=== PATIENT | male | born 1955 | race Caucasian/White ===

== ENCOUNTER 2018-05-11 10:28 | Inpatient (IN) | payer MEDICARE, SELFPAY ==
[2018-05-11] VITALS (11 sets, daily range): BP systolic 165–195; BP diastolic 78–117; PULSE 82–124; RESP 16–28; TEMP 36.1–37.7; O2SAT 91–98; BMI 28.3; BMI 27.4; BMI 27.5
--- NOTE | 2018-05-11 10:32 | RAD_ITS ---
STUDY: X-RAY - THORACIC SPINE REASON FOR EXAM: Male, 62 years old. Chronic back pain. TECHNIQUE: 3 view(s) of the thoracic spine were obtained. COMPARISON: None. FINDINGS: There is an increase in the normal thoracic kyphosis. There is no substantial scoliosis. There is multilevel endplate spondylosis of the thoracic vertebrae. There is multilevel disc space narrowing of the thoracic spine. Findings in keeping with ankylosing spondylitis. Gallstones. RAD/Thoracic Spine 3 Views IMPRESSION: Findings in keeping with ankylosing spondylitis. Gallstones. Electronically Signed: Venkata Franklin MD at 12:18 EST Tel [phone], Service support ,
--- NOTE | 2018-05-11 10:32 | RAD_ITS ---
STUDY: X-RAY - RIGHT HIP REASON FOR EXAM: Male, 62 years old. Right hip pain following recent fall. TECHNIQUE: 2 views of the hip. COMPARISON: None. FINDINGS: Normal femoral head, neck, intertrochanteric region and visualized proximal femur. There is osteoarthritic spur formation of the acetabular rim. There is moderate articular joint space narrowing. Normal visualized superior and inferior pubic rami and ischial tuberosities. Fusion of the symphysis pubis. There is fusion of the sacroiliac joints bilaterally. There is evidence of a disc space narrowing in the lower lumbar spine with fusion of the spinous processes suggestive of a ankylosing spondylitis. RAD/HIP, UNI W/ Pelvis 2-3 Views IMPRESSION: Degenerative changes of the hip. Findings suggestive of ankylosing spondylitis. Electronically Signed: Venkata Franklin MD at 12:15 EST Tel [phone], Service support ,
--- NOTE | 2018-05-11 10:32 | RAD_ITS ---
STUDY: X-RAY - LUMBAR SPINE REASON FOR EXAM: Male, 62 years old. History of recent fall. Chronic back pain. TECHNIQUE: 3 view(s) of the lumbar spine were obtained. COMPARISON: None FINDINGS: There is straightening of the normal lumbar lordosis. There is no substantial scoliosis. There is a normal alignment of the vertebrae. There is multilevel endplate spondylosis of the lumbar vertebrae. There is multi-level degenerative disc disease with multi-level disc space narrowing. Findings in keeping with ankylosing spondylitis. Fusion of the sacroiliac joints bilaterally. There is atherosclerotic calcification of the abdominal aorta without a demonstrated aneurysm. Gallstones. There is a 3.6 mm calculus in the lower pole calyx of the right kidney. RAD/Lumbar Spine 2 or 3 Views IMPRESSION: Findings in keeping with ankylosing spondylitis. Electronically Signed: Venkata Franklin MD at 12:17 EST Tel [phone], Service support ,
--- NOTE | 2018-05-11 10:40 | ED.VISSUMM ---
- ER Visit Summary Date of Service: 05/11/18 Chief Complaint: Fall History of Present Illness: The patient is a 62 M who fell last night about 12 hours ago. He thinks he fell because his right hip gave out. He complains of right hip pain and also mid back pain. He denies hitting his head or neck. Denies head or neck pain. Denies loss of consciousness. Denies any weakness or numbness. Denies any chest pain or shortness of breath. Denies abdominal pain or GI symptoms. Denies urinary symptoms. Physical Examination: Afebrile and vital signs unremarkable except for blood pressure 195/117. The patient is alert and oriented. He appears uncomfortable when trying to move. Head and neck are atraumatic. Heart regular. Lungs clear. Abdomen soft. Back is diffusely tender in the mid thoracic region. Right hip is tender to palpation. Right lower extremity is slightly shortened. Pain with logroll. Neurovascularly intact distally. Other extremities are atraumatic and unremarkable. Test Results: X-rays of the back and right hip are pending. I also checked a CBC, BMP, and CK. Emergency Department Course and Treatment: Patient was treated with fentanyl while awaiting results. I have suspicion for right hip fracture or dislocation. I have low suspicion for back fracture or pathology there. I have low suspicion for rhabdo but will check his labs. X-rays showed degenerative and chronic changes only. Nothing acute. No fractures. Patient is doing well on reevaluation. His blood work showed a white count of 16.6, hemoglobin 18.4, platelets 102. BMP unremarkable. CPK 1371. He was treated with IV fluids. He is taking fluids by mouth. Urinalysis pending. Patient was discussed with the hospitalist for admission Treatment Plan: As above Disposition: Admission Impression: 1. Fall 2. Right hip pain 3. rhabdomyolysis This note was generated with [employer] dictation software. It may contain incorrect words, spelling, and punctuation that were not noted in review of the chart prior to signing ED Disposition - Plan for ED Patient: Chief Complaint: Fall Referrals: Yang Saul MD [Primary Care Provider] -
[2018-05-11] MEDS: fentaNYL 100 MCG/2 ML Ampul 50 MCG IV (11:00)
[2018-05-11 11:06] LABS: Absolute Lymphocyte Count 1.65 X10^3/ul (0.83-4.51); Absolute Neutrophil Count 14.3 X10^3/uL (2.0-7.7); Basophil# 0.01 X10^3/uL; Basophil% 0.1 % (0-1); Hematocrit 52.7 % (40-54); Lymphocyte # 1.65 X10^3/ul (4.0); Mean Corp Hgb Conc 34.9 g/gl (32-36); Mean Corpuscular Hgb 31.9 pg (27.0-32.0); Mean Corpuscular Volume 91.3 fL (80-94); Mean Platelet Vol. 10.1 fl (6.2-12.0); Monocyte# 0.62 X10^3/uL; Monocyte% 3.7 % (0-10); Neutrophil # 14.25 X10^3/uL (2.7-7.7); Platelet Count 102 K/mm3 (150-450); RBC Distribution Width CV 12.7 % (11.6-14.6); RBC Distribution Width SD 41.8 fl (35.1-43.9); Red Blood Count 5.77 M/mm3 (4.6-6.2); White Blood Count 16.6 K/mm3 (4.4-11.0)
[2018-05-11 11:08] LABS: Hemoglobin 18.4 g/dl (13.0-16.5); POSITIVE COUNT NO; POSITIVE DIFFERENTIAL NO; POSITIVE MORPHOLOGY NO
[2018-05-11 11:25] LABS: Anion Gap 12 (5-15); BUN 11 mg/dL (7-18); BUN/Creat Ratio 12.3 RATIO (10-20); CPK Total, Creatine Kinase 1371 U/L (39-308); Calcium,Total 8.6 mg/dL (8.5-10.1); Chloride 102 mmol/L (98-107); Creatinine, Serum 0.89 mg/dL (0.70-1.30); EST Glomerular Filtration Rate 92 mL/min (>60); Est Glom Filt Rate - Afr Amer 111 mL/min (>60); Estimated Creatinine Clearance 75.82 ml/min; Glucose 122 mg/dL (74-106); Potassium 3.5 mmol/L (3.5-5.1); Sodium Level 143 mmol/L (136-145)
[2018-05-11] MEDS: 0.9% Normal Saline 1,000 ML 999 ML IV ×3 (12:00→22:31)
[2018-05-11 12:40] LABS: Bacteria 0 SEEN /hpf (None Seen); Mucous, Urine 0 SEEN /hpf (<or=2+); Red Blood Cells-Urine 0 SEEN /hpf (0-5); Squamous Epithelial Cells - UA 0 SEEN /hpf (0-5)
[2018-05-11 12:45] LABS: Color, Urine Yellow (Yellow); Glucose, Dipstick Normal (Normal); Ketone-Dipstick 5 mg/dl (Negative); Leukocyte Esterase-Dipstick 25 /ul (Negative); Nitrite-Dipstick Negative (Negative); Occult Blood-Urine 250 /ul (Negative); Protein-Dipstick 500 mg/dl (Negative); Specific Gravity, Urine 1.025 (1.002-1.030); Urine Bilirubin Dipstick Negative (Negative); Urine Clarity Sl. Cloudy (Clear); Urine Urobilinogen 1 mg/dl (Normal)
[2018-05-11 12:54] LABS: Hyaline Cast 0-5 SEEN /lpf (0-5)
[2018-05-11 12:55] LABS: White Blood Cells 0-5 SEEN /hpf (0-5)
--- NOTE | 2018-05-11 13:30 | PCM.HP.STD ---
Problem List (1) Ankylosing spondylitis of lumbosacral region Status: Chronic (2) Fall Status: Acute (3) Rhabdomyolysis Status: Acute (4) Psoriasis Status: Chronic (5) Chronic neck and back pain Status: Chronic (6) 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 Fell down because his right hip twisted as he was walking on the level ground. He could not stand up or move around and was laying down for 12 hours. Patient denies loss of consciousness or hitting the head. Before fall, he was not using cane or walker but he used cane in the past for some time. Patient is not able to roll over or sit up because of severe pain. He further states he has chronic back pain and neck pain for more than 20 years with history of 5 times back injuries. He denies back surgery. His neck is in chronic flexor deformity. He is to see chiropractor in [facility] and probably some rheumatology nurse there and was put on Enbrel. He said it did not help one probably currently not following any doctor. In ED, his blood pressure was found high 195/117, but no tachycardia, tachypnea or hypoxia. Hemoglobin is 18.4, hematocrit 52.7 probably due to hemoconcentration. Urine specific gravity is normal, protein 500, CK 1000 371 suggestive of rhabdomyolysis 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) Allergies Unable to Assess Allergy (Verified 05/11/18 10:59) Smoking Status: Current every day smoker - *Family History Maternal History Items: No pertinent history Review of Systems Constitutional: Denies: Chills, Fever, Weight Change Eyes: Reports: - HEENT: Reports: Difficulty Hearing - In both ears Cardiovascular: Denies: Chest Pain, Palpitations Respiratory: Denies: Cough, Shortness of breath at rest, Sputum production Gastrointestinal: Reports: - - Mild abdominal distention but no pain. Denies tense abdomen and is moving his bowels regularly, last one yesterday. Denies hard stool.. Denies: Abdominal Pain, Nausea, Vomiting Genitourinary: Reports: - - Dark urine. Denies: Dysuria Musculoskeletal: Reports: Back Pain, Joint Pain, Joint stiffness, Joint swelling, Joint Tenderness, Leg Pain, Muscle pain, Neck Pain Skin: Denies: Rash, Wounds Neurological: Reports: Balance problems. Denies: Focal weakness, Numbness, Tingling Psychiatric: Denies: Anxiety, Depression, Homicidal Ideations, Suicidal Ideations Hematologic/ Lymphatic: Denies: Easy Bruising, Easy Bleeding VTE Information - Inpt Only VTE Present on Admission: No VTE Pharm Prophylaxis ordered?: Yes Patient Problems: Active and Suspected Problems Fall (Acute) Rhabdomyolysis (Acute) - Physical Exam General: Alert, Oriented x3, Cooperative HEENT: Atraumatic, PERRLA, EOMI, Normocephalic Oral: Dry Mucosa Neck: Supple, No JVD, Negative Carotid Bruits Lungs: Clear to auscultation, Diminished - Air entry diminished in bilateral lung bases Cardiovascular: Regular rate, Regular Rhythm, Normal S1, Normal S2, No murmurs Abdomen: Bowel Sounds Present, Soft, Non Tender, Hypoactive Bowel Sounds, Distended - Seems gaseous distention. Tympanic percussion sounds Extremities: No edema, Capillary Refill Less than 3 Seconds Skin: No rashes, Rash Present - Dry with chronic fissuring and thickening with a scaling like Toad skin, typical of psoriatic Musculoskeletal: Arthritic Changes, Muscle Wasting, Tenderness - Severe tenderness present over lumbar spine, neck and right hip. Not able to flex right hip and right knee. Lower extremity weakness secondary to pain. Neurological: Cranial nerves II-XII grossly intact, - - DTR 3+ in both knees. Babinski sign negative Psych/Mental Status: Normal Affect, Appropriate Vital Signs Temp Pulse Resp BP Pulse Ox 98.2 F 93 16 195/117 H 96 05/11/18 10:30 05/11/18 10:30 05/11/18 10:30 05/11/18 10:30 05/11/18 10:30 Oxygen Delivery Method Room Air Weight: 170 lb Body Mass Index (BMI) 28.3 Laboratory Tests Past 24 Hrs 05/11/18 05/11/18 05/11/18 10:47 10:47 12:25 WBC 16.6 H RBC 5.77 Hgb 18.4 H* Hct 52.7 MCV 91.3 MCH 31.9 MCHC 34.9 RDW 12.7 RDW Differential 41.8 Plt Count 102 L MPV 10.1 Immature Gran % (Auto) 0.200 Neut % (Auto) 86.0 H Lymph % (Auto) 10.0 L [place] % (Auto) 3.7 Eos % (Auto) 0.0 Baso % (Auto) 0.1 Absolute Neuts (auto) 14.3 H Absolute Lymphs (auto) 1.65 Total Counted Not Reportable Sodium 143 Potassium 3.5 Chloride 102 Carbon Dioxide 29.0 Anion Gap 12 BUN 11 Creatinine 0.89 Estim Creat Clear Calc 75.82 Est GFR (MDRD) Af Amer 111 Est GFR (MDRD) Non-Af 92 BUN/Creatinine Ratio 12.3 Glucose 122 H Calcium 8.6 Total Creatine Kinase 1371 H Urine Color Yellow Urine Clarity Sl. Cloudy Urine pH 5.0 Ur Specific [place] 1.025 Urine Protein 500 H Urine Glucose (UA) Normal Urine Ketones 5 H Urine Occult Blood 250 H Urine Nitrite Negative Urine Bilirubin Negative Urine Urobilinogen 1 H Ur Leukocyte Esterase 25 H Urine RBC 0 SEEN Urine WBC 0-5 SEEN Ur Squamous Epith Cells 0 SEEN Urine Bacteria 0 SEEN Hyaline Casts 0-5 SEEN Urine Mucus 0 SEEN Assessment/Plan All Active Problems Fall (Acute) Rhabdomyolysis (Acute) The patient is a 62 year old M with significant history of lumbosacral spondylosis and cervical spondylosis with chronic neck and back pain, sciatica in nature came to ER after he fell down yesterday. He fell down because his right hip twisted as he was walking on the level ground. He could not stand up or move around and was laying down for 12 hours. Patient denies loss of consciousness or hitting the head. Before fall, he was not using cane or walker but he used cane in the past for some time. Patient is not able to roll over or sit up because of severe pain. He further states he has chronic back pain and neck pain for more than 20 years with history of 5 times back injuries. He denies back surgery. His neck is in chronic flexor deformity. He is to see chiropractor in [facility] and probably some rheumatology nurse there and was put on Enbrel. He said it did not help one probably currently not following any doctor. In ED, his blood pressure was found high 195/117, but no tachycardia, tachypnea or hypoxia. Hemoglobin is 18.4, hematocrit 52.7 probably due to hemoconcentration. Urine specific gravity is normal, protein 500, CK 1000 371 suggestive of rhabdomyolysis. 1. Fall most likely mechanical secondary to chronic right hip joint arthritis exacerbated with chronic lumbosacral degenerative spondylosis with rhabdomyolysis: Patient is being admitted on regular MedSurg floor. IV fluid normal saline at 150 mL/h. Monitor intake and output. Monitor CK daily. PT and OT. Pain management and muscle relaxant. 2. Chronic lumbosacral pain, sciatica in nature with features of ankylosing spondylitis on thoracic and lumbar spine x-rays: Although patient does not know the diagnosis of ankylosing spondylitis but he has positive symptoms of and he was getting Enbrel for that. 3. Hemoconcentration with severe dehydration: IV fluid as mentioned above. 4. Chronic psoriasis and possible associated psoriatic arthritis: Follow-up rheumatology nurse outpatient. DVT prophylaxis: On Lovenox 40 mg subcuT daily Clinical Impression(s) from Imaging Studies Hip/Pelvis X-Ray 05/11/18 10:32 IMPRESSION: Degenerative changes of the hip. Findings suggestive of ankylosing spondylitis. Lumbar Spine X-Ray 05/11/18 10:32 IMPRESSION: Findings in keeping with ankylosing spondylitis. Thoracic Spine X-Ray 05/11/18 10:32 IMPRESSION: Findings in keeping with ankylosing spondylitis. Gallstones. Code Visit Inpatient E&M: 69906 Init Hosp L3
--- NOTE | 2018-05-11 13:39 | HP.PCM_ITS ---
Problem List (1) Ankylosing spondylitis of lumbosacral region Status: Chronic (2) Fall Status: Acute (3) Rhabdomyolysis Status: Acute (4) Psoriasis Status: Chronic (5) Chronic neck and back pain Status: Chronic (6) Sciatica associated with disorder of lumbosacral spine Status: Chronic History of Present Illness Date of Admission: 05/11/18 Chief Complaint: Fall yesterday The patient is a 62 year old M with significant history of lumbosacral s pondylosis and cervical spondylosis with chronic neck and back pain, sciatica in nature came to ER after he fell down yesterday. Fell down because his right hip twisted as he was walking on the level ground. He could not stand up or move around and was laying down for 12 hours. Patient denies loss of consciousness or hitting the head. Before fall, he was not using cane or walker but he used cane in the past for some time. Patient is not able to roll over or sit up because of severe pain. He further states he has chronic back pain and neck pain for more than 20 years with history of 5 times back injuries. He denies back surgery. His neck is in chronic flexor deformity. He is to see chiropractor in [facility] and probably some frame changer there and was put on Enbrel. He said it did not help one probably currently not following any doctor. In ED, his blood pressure was found high 195/117, but no tachycardia, tachypnea or hypoxia. Hemoglobin is 18.4, hematocrit 52.7 probably due to hemoconcentration. Urine specific gravity is normal, protein 500, CK 1000 371 suggestive of rhabdomyolysis 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) Allergies Unable to Assess Allergy (Verified 05/11/18 10:59) Smoking Status: Current every day smoker - *Family History Maternal History Items: No pertinent history Review of Systems Constitutional: Denies: Chills, Fever, Weight Change Eyes: Reports: - HEENT: Reports: Difficulty Hearing - In both ears Cardiovascular: Denies: Chest Pain, Palpitations Respiratory: Denies: Cough, Shortness of breath at rest, Sputum production Gastrointestinal: Reports: - - Mild abdominal distention but no pain. Denies tense abdomen and is moving his bowels regularly, last one yesterday. Denies hard stool.. Denies: Abdominal Pain, Nausea, Vomiting Genitourinary: Reports: - - Dark urine. Denies: Dysuria Musculoskeletal: Reports: Back Pain, Joint Pain, Joint stiffness, Joint swelling, Joint Tenderness, Leg Pain, Muscle pain, Neck Pain Skin: Denies: Rash, Wounds Neurological: Reports: Balance problems. Denies: Focal weakness, Numbness, Tingling Psychiatric: Denies: Anxiety, Depression, Homicidal Ideations, Suicidal Ideations Hematologic/ Lymphatic: Denies: Easy Bruising, Easy Bleeding VTE Information - Inpt Only VTE Present on Admission: No VTE Pharm Prophylaxis ordered?: Yes Patient Problems: Active and Suspected Problems Fall (Acute) Rhabdomyolysis (Acute) - Physical Exam General: Alert, Oriented x3, Cooperative HEENT: Atraumatic, PERRLA, EOMI, Normocephalic Oral: Dry Mucosa Neck: Supple, No JVD, Negative Carotid Bruits Lungs: Clear to auscultation, Diminished - Air entry diminished in bilateral lung bases Cardiovascular: Regular rate, Regular Rhythm, Normal S1, Normal S2, No murmurs Abdomen: Bowel Sounds Present, Soft, Non Tender, Hypoactive Bowel Sounds, Distended - Seems gaseous distention. Tympanic percussion sounds Extremities: No edema, Capillary Refill Less than 3 Seconds Skin: No rashes, Rash Present - Dry with chronic fissuring and thickening with a scaling like Toad skin, typical of psoriatic Musculoskeletal: Arthritic Changes, Muscle Wasting, Tenderness - Severe tenderness present over lumbar spine, neck and right hip. Not able to flex right hip and right knee. Lower extremity weakness secondary to pain. Neurological: Cranial nerves II-XII grossly intact, - - DTR 3+ in both knees. Babinski sign negative Psych/Mental Status: Normal Affect, Appropriate Vital Signs Temp Pulse Resp BP Pulse Ox 98.2 F 93 16 195/117 H 96 05/11/18 10:30 05/11/18 10:30 05/11/18 10:30 05/11/18 10:30 05/11/18 10:30 Oxygen Delivery Method Room Air Weight: 170 lb Body Mass Index (BMI) 28.3 Laboratory Tests Past 24 Hrs 05/11/18 05/11/1818 10:47 10:47 12:25 WBC 16.6 H RBC 5.77 Hgb 18.4 H* Hct 52.7 MCV 91.3 MCH 31.9 MCHC 34.9 RDW 12.7 RDW Differential 41.8 Plt Count 102 L MPV 10.1 Immature Gran % (Auto) 0.200 Neut % (Auto) 86.0 H Lymph % (Auto) 10.0 L [place] % (Auto) 3.7 Eos % (Auto) 0.0 Baso % (Auto) 0.1 Absolute Neuts (auto) 14.3 H Absolute Lymphs (auto) 1.65 Total Counted Not Reportable Sodium 143 Potassium 3.5 Chloride 102 Carbon Dioxide 29.0 Anion Gap 12 BUN 11 Creatinine 0.89 Estim Creat Clear Calc 75.82 Est GFR (MDRD) Af Amer 111 Est GFR (MDRD) Non-Af 92 BUN/Creatinine Ratio 12.3 Glucose 122 H Calcium 8.6 Total Creatine Kinase 1371 H Urine Color Yellow Urine Clarity Sl. Cloudy Urine pH 5.0 Ur Specific [place] 1.025 Urine Protein 500 H Urine Glucose (UA) Normal Urine Ketones 5 H Urine Occult Blood 250 H Urine Nitrite Negative Urine Bilirubin Negative Urine Urobilinogen 1 H Ur Leukocyte Esterase 25 H Urine RBC 0 SEEN Urine WBC 0-5 SEEN Ur Squamous Epith Cells 0 SEEN Urine Bacteria 0 SEEN Hyaline Casts 0-5 SEEN Urine Mucus 0 SEEN Assessment/Plan All Active Problems Fall (Acute) Rhabdomyolysis (Acute) The patient is a 62 year old M with significant history of lumbosacral spondylosis and cervical spondylosis with chronic neck and back pain, sciatica in nature came to ER after he fell down yesterday. He fell down because his right hip twisted as he was walking on the level ground. He could not stand up or move around and was laying down for 12 hours. Patient denies loss of consciousness or hitting the head. Before fall, he was not using cane or walker but he used cane in the past for some time. Patient is not able to roll over or sit up because of severe pain. He further states he has chronic back pain and neck pain for more than 20 years with history of 5 times back injuries. He denies back surgery. His neck is in chronic flexor deformity. He is to see chiropractor in [facility] and probably some frame changer there and was put on Enbrel. He said it did not help one probably currently not following any doctor. In ED, his blood pressure was found high 195/117, but no tachycardia, tachypnea or hypoxia. Hemoglobin is 18.4, hematocrit 52.7 probably due to hemoconcentration. Urine specific gravity is normal, protein 500, CK 1000 371 suggestive of rhabdomyolysis. 1. Fall most likely mechanical secondary to chronic right hip joint arthritis exacerbated with chronic lumbosacral degenerative spondylosis with rhabdomyolysis: Patient is being admitted on regular MedSurg floor. IV fluid normal saline at 150 mL/h. Monitor intake and output. Monitor CK daily. PT and OT. Pain management and muscle relaxant. 2. Chronic lumbosacral pain, sciatica in nature with features of ankylosing spondylitis on thoracic and lumbar spine x-rays: Although patient does not know the diagnosis of ankylosing spondylitis but he has positive symptoms of and he was getting Enbrel for that. 3. Hemoconcentration with severe dehydration: IV fluid as mentioned above. 4. Chronic psoriasis and possible associated psoriatic arthritis: Follow-up frame changer outpatient. DVT prophylaxis: On Lovenox 40 mg subcuT daily Clinical Impression(s) from Imaging Studies Hip/Pelvis X-Ray 05/11/18 10:32 IMPRESSION: Degenerative changes of the hip. Findings suggestive of ankylosing spondylitis. Lumbar Spine X-Ray 05/11/18 10:32 IMPRESSION: Findings in keeping with ankylosing spondylitis. Thoracic Spine X-Ray 05/11/18 10:32 IMPRESSION: Findings in keeping with ankylosing spondylitis. Gallstones. Code Visit Inpatient E&M: 77818 Init Hosp L3
--- NOTE | 2018-05-11 13:51 | RAD_ITS ---
STUDY: X-RAY - ABDOMEN/PELVIS REASON FOR EXAM: Male, 62 years old. Back pain and hip pain following a fall. TECHNIQUE: AP supine and upright views of the abdomen and pelvis. COMPARISON: None. FINDINGS: Linear scarring or atelectasis at the right lung base. There is a moderate amount of colonic fecal material. There is no demonstrated free abdominal air. Calcified gallstones. 3 mm calculus in the lower pole of the right kidney. Normal soft tissue structures. Findings indicative with ankylosis spondylitis. Multilevel degenerative changes of the lumbar spine with fusion of the sacroiliac joints bilaterally. RAD/Abd Inc Decub and/or Erect IMPRESSION: Gallstones. Calculus in the lower focus of the right kidney. Findings in keeping with ankylosing spondylitis. Electronically Signed: Venkata Franklin MD at 14:46 EST Tel [phone], Service support ,
[2018-05-11] MEDS: Ondansetron 4 MG/2 ML Vial IV (15:01)
[2018-05-11] MEDS: 0.9% Normal Saline 1,000 ML 150 ML IV ×2 (15:01→22:28)
[2018-05-11] MEDS: oxyCODONE CR 15 MG Tablet PO (15:01)
[2018-05-11] MEDS: Enoxaparin 40 MG/0.4 ML Syringe SC (15:02)
--- NOTE | 2018-05-11 22:05 | NURSING ---
When trying to assess pt and get vital signs, pt seemed more confused. Could only tell me his name, c/o a headache, & his entire neuro status did not seem appropriate. This RN called Hospitalist who gave order for head CT and while placing that order, the pt began to seize at approximately 2205. Pt became very, very tense, entire face became reddened. Seizure lasted roughly 1 minute, pt became calmer with heavy breathing, and then about 1.5 minutes later began to seize again. A rapid response was called at the time of the first seizure. Dr. Ho came to bedside & orders were given, along with resp therapist, nursing kennel supervisor, and fellow staff nurses. See rapid response paperwork for medications given & vital signs. Labs drawn, EKG done, pt being taken down to CT at this time by fishing vessel mate, Ulisses, and then being transferred to ICU per MD orders.
--- NOTE | 2018-05-11 22:07 | CT_ITS ---
STUDY: CT BRAIN WITHOUT CONTRAST REASON FOR EXAM: Male, 62 years old. Mental status changes, injury one day ago RADIATION DOSAGE (If Supplied By Facility): CTDIvol = ( 44.99 ) mGy, DLP = ( 933.90 ) mGycm TECHNIQUE: Transaxial CT imaging of the brain was performed without administration of intravenous contrast material. Individualized dose optimization techniques were used for this CT. COMPARISON: None. FINDINGS: Normal soft tissue structures. Normal calvarium. The lateral ventricles are normal in size and are symmetric. The third and fourth ventricles are midline. There is mild bilateral frontal lobe atrophy. There are areas of decreased attenuation within the white matter tracts of the supratentorial brain, consistent with microvascular disease changes. Normal basal ganglia and thalami. Normal brainstem. Normal cerebellum. There is no intracranial hemorrhage. There are no findings of an acute ischemic infarction. Normal visualized paranasal sinuses. CT/Brain/Head without Contrast IMPRESSION: Chronic involutional changes of the brain. Bilateral frontal lobe atrophy. This may be associated with ethanol abuse. There is no evidence of intracranial hemorrhage or calvarial fracture. Electronically Signed: Leandro Sullivan MD at 23:35 EST , Service support ,
[2018-05-11] MEDS: LORazepam 2 MG/ML Syringe IV (22:10)
[2018-05-11] MEDS: Metoprolol Tartrate 5 MG/5 ML Vial IV (22:20)
[2018-05-11 22:35] LABS: Allen Test POS; Base Excess -12 mmol/L (-2 to +2); Bicarbonate 16.4 mmol/L (22-26); Blood Gas Specimen Type ART; O2 Delivery Device NRB Mask; PO2 197 mmHG (75-100); SITE L Radial; SO2 99 % (95-99); Time Given 2220; Total Carbon Dioxide 18 mmol/L; pCO2 45.1 mmHg (35-45); pH 7.17 (7.35-7.45)
[2018-05-11 22:39] LABS: Absolute Neutrophil Count 16.8 X10^3/uL (2.0-7.7); Basophil# 0.02 X10^3/uL; Basophil% 0.1 % (0-1); Eosinophil# 0.02 X10^3/uL; Eosinophils% 0.1 % (0-5); Hematocrit 53.3 % (40-54); Hemoglobin 17.9 g/dl (13.0-16.5); Lymphocyte % 11.7 % (19-41); Mean Corp Hgb Conc 33.6 g/gl (32-36); Mean Corpuscular Hgb 32.1 pg (27.0-32.0); Mean Corpuscular Volume 95.5 fL (80-94); Mean Platelet Vol. 10.8 fl (6.2-12.0); Monocyte% 11.7 % (0-10); Neutrophil # 16.84 X10^3/uL (2.7-7.7); Neutrophil % 75.7 % (47-70); Platelet Count 108 K/mm3 (150-450); RBC Distribution Width CV 12.7 % (11.6-14.6); RBC Distribution Width SD 44.3 fl (35.1-43.9); Red Blood Count 5.58 M/mm3 (4.6-6.2); White Blood Count 22.2 K/mm3 (4.4-11.0)
[2018-05-11 22:41] LABS: Amphetamine Urine VISTA NEGATIVE (<1000 ng/mL); Barbiturate Urine VISTA NEGATIVE (< 200 ng/mL); Benzodiazepine Urine VISTA NEGATIVE (< 200 ng/mL); Cocaine Urine VISTA NEGATIVE (< 300 ng/mL); Ecstacy Urine VISTA NEGATIVE (< 500 ng/mL); Methadone Urine VISTA NEGATIVE (< 300 ng/mL); PCP Urine VISTA NEGATIVE (< 25 ng/mL); THC Urine VISTA POSITIVE (< 50 ng/mL); Vista UDS pH Range 7
[2018-05-11 22:56] LABS: Differential Comment SCANNED; Differential Indicated SCAN CRITERIA MET; POSITIVE COUNT NO; POSITIVE DIFFERENTIAL YES; POSITIVE MORPHOLOGY NO
[2018-05-11] MEDS: LORazepam 2 MG/ML Syringe 1 MG IV (22:58)
[2018-05-11 23:00] LABS: ALB/GLOB Ratio 0.8 RATIO (0.9-2.4); AST(SGOT) 109 U/L (15-37); Alanine Aminotransfer ALT/SGPT 71 U/L (16-61); Albumin, Serum 3.4 g/dL (3.2-5.0); Alkaline Phosphatase 125 U/L (45-117); Anion Gap 22 (5-15); BUN 9 mg/dL (7-18); BUN/Creat Ratio 7.8 RATIO (10-20); Calcium,Total 7.2 mg/dL (8.5-10.1); Chloride 103 mmol/L (98-107); Creatinine, Serum 1.15 mg/dL (0.70-1.30); EST Glomerular Filtration Rate 69 mL/min (>60); Est Glom Filt Rate - Afr Amer 83 mL/min (>60); Estimated Creatinine Clearance 58.68 ml/min; Globulin 4.3 g/dL (2.2-4.2); Glucose 153 mg/dL (74-106); Magnesium 1.6 mg/dL (1.6-2.6); Potassium 3.4 mmol/L (3.5-5.1); Protein, Total 7.7 g/dL (6.4-8.2); Sodium Level 141 mmol/L (136-145)
[2018-05-11] MEDS: 0.9% NaCl Peripheral Flush Adult/Peds IV (23:06)
[2018-05-11 23:14] LABS: Lactic Acid 8.9 mmol/L (0.4-2.0)
--- NOTE | 2018-05-11 23:15 | NURSING ---
Moved pt over from Med/Surg bed to ICU bed. Pt moaned during transport to bed. Right leg is externally rotated and hip area is deformed with bulge in groin area. Pt is not following commands at this time
--- NOTE | 2018-05-11 23:26 | NURSING ---
Next of kin, Shira Isaac, called and notified of ICU transfer.
[2018-05-11 23:31] LABS: Allen Test POS; Base Excess 1 mmol/L (-2 to +2); Bicarbonate 27.1 mmol/L (22-26); Blood Gas Specimen Type ART; O2 Delivery Device NRB Mask; PO2 205 mmHG (75-100); SITE L Radial; SO2 100 % (95-99); Time Given 2325; Total Carbon Dioxide 29 mmol/L; pCO2 49.9 mmHg (35-45); pH 7.34 (7.35-7.45)
--- NOTE | 2018-05-11 23:31 | RAD_ITS ---
STUDY: X-RAY - PELVIS AND RIGHT HIP REASON FOR EXAM: Male, 62 years old. Right hip this finger. TECHNIQUE: 2 views of the pelvis and hip. Current exam was done at 2339 hours. COMPARISON: X-ray abdomen and pelvis 05/11/2018, done at 1427 hours. FINDINGS: There is a non-specific bowel gas pattern. Normal visualized soft tissue structures. There is a Louise catheter overlying the pelvis. There is ankylosis of the sacroiliac joints bilaterally. Normal bilateral superior and inferior pubic rami. There is ankylosis of the pubic symphysis. Normal bilateral ischial tuberosities. There is an acute traumatic right intertrochanteric fracture which is comminuted, with angulation convex laterally. Normal visualized femoral head. There is osteoarthritic spur formation of the acetabular rim. There is moderate articular joint space narrowing of the hip. RAD/Hip 1 view with Pelvis IMPRESSION: Angulated, comminuted, right intertrochanteric fracture. Moderate degenerative arthrosis of the right hip. 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 Electronically Signed: Nico Eugene MD at 0:54 EST , Service support ,
[2018-05-12] VITALS (35 sets, daily range): BP systolic 118–175; BP diastolic 50–111; PULSE 77–126; RESP 16–25; TEMP 36.3–37.8; O2SAT 91–100; BMI 28.2
[2018-05-12] MEDS: Ketorolac 30 MG/ML Syringe IV (00:06)
[2018-05-12] MEDS: 0.9% NaCl IVPB Med Flush (250 mL) 15 ML IV ×2 (00:07→12:52)
[2018-05-12] MEDS: 0.9% Normal Saline 1,000 ML 150 ML IV ×3 (00:07→17:29)
--- NOTE | 2018-05-12 01:08 | RRT_ITS ---
Rapid Response Note Rapid response was called on account of patient having had a seizure. Nurse had called me about a few minutes prior to rapid response being called because patient was having altered mental status and he did not have a CAT scan of his head done when he was admitted on account of fall. CT of the head was ordered stat and subsequently rapid response was called on account of patient having a seizure. Seizure lasted for just a few minutes and was generalized and tonic. Blood glucose checked at 161. Patient became very agitated after the seizure and was thrashing around. He calmed down after he was given a dose of IV Ativan 2 mg. He was also noted to be febrile with temperature of 99.9 Fahrenheit. Other vitals showed pulse rate of 121 and respiratory rate of 28 blood pressure was 195/113. He was saturating at 96% on oxygen. Stat CBC and CMP as well as magnesium and troponin were ordered. Lactic acid was also ordered. Stat CT of the head was also ordered. Decision made to transfer patient up to ICU for closer monitoring. Brain CT results showed chronic involutional changes of the brain with bilateral frontal lobe atrophy which could be assisted with ethanol abuse. There was no evidence of intracranial hemorrhage or calvarial fracture. Lactic acid came back elevated at 8.9 which was to be expected considering the fact that he had had a seizure. Initial ABG showed pH of 7.14 with bicarb of 16. Repeat ABG after patient was hydrated for about an hour showed pH of 7.34 and bicarb of 27. PCO2 was 49.9. Patient was still on 15 L of oxygen by nonrebreather mask. Labs showed elevated white cell count of 22.2 which had trended up from 16.6 and hemoglobin was 17.9 with platelets of 108. Bicarb on BMP was 16 with anion gap of 22 and initial troponin was 0.059. Will consult neurology on account of seizure. Magnesium was 1.6. Will replace to maintain above 2. Patient Problems: Active and Suspected Problems Fall (Acute) Rhabdomyolysis (Acute) - Physical Exam Vital Signs Temp Pulse Resp BP Pulse Ox 100.1 F H 93 20 H 167/102 H 92 1218 00:30 1218 00:30 12 00:30 12 00:30 05/12/18 00:30 Oxygen Flow Rate (L/min) 2 Oxygen Delivery Method Nasal Cannula Weight: 165 lb Body Mass Index (BMI) 27.4 Intake and Output for Last 24 Hours 05/10/18 05/11/18 05/12/18 23:59 23:59 23:59 Intake Total 597 / 597 Output Total 850 / 850 Balance -253 / -253 Laboratory Tests Past 24 Hrs 05/11/18 05/11/18 05/11/18 10:47 10:47 12:25 WBC 16.6 H RBC 5.77 Hgb 18.4 H* Hct 52.7 MCV 91.3 MCH 31.9 MCHC 34.9 RDW 12.7 RDW Differential 41.8 Plt Count 102 L MPV 10.1 Immature Gran % (Auto) 0.200 Neut % (Auto) 86.0 H Lymph % (Auto) 10.0 L Grainger % (Auto) 3.7 Eos % (Auto) 0.0 Baso % (Auto) 0.1 Absolute Neuts (auto) 14.3 H Absolute Lymphs (auto) 1.65 Total Counted Not Reportable Differential Comment Specimen Type Sample Site pH Bicarbonate Actual POC Total CO2 Base Excess O2 Saturation ABG pCO2 ABG pO2 Kuldeep Test O2 Delivery Device Liter Flow Blood Gas Notified Whom Blood Gas Notified Time Sodium 143 Potassium 3.5 Chloride 102 Carbon Dioxide 29.0 Anion Gap 12 BUN 11 Creatinine 0.89 Estim Creat Clear Calc 75.82 Est GFR (MDRD) Af Amer 111 Est GFR (MDRD) Non-Af 92 BUN/Creatinine Ratio 12.3 Glucose 122 H Lactic Acid Calcium 8.6 Magnesium Total Bilirubin AST ALT Alkaline Phosphatase Total Creatine Kinase 1371 H Troponin I Total Protein Albumin Globulin Albumin/Globulin Ratio Urine Color Yellow Urine Clarity Sl. Cloudy Urine pH 5.0 Ur Specific [place] 1.025 Urine Protein 500 H Urine Glucose (UA) Normal Urine Ketones 5 H Urine Occult Blood 250 H Urine Nitrite Negative Urine Bilirubin Negative Urine Urobilinogen 1 H Ur Leukocyte Esterase 25 H Urine RBC 0 SEEN Urine WBC 0-5 SEEN Ur Squamous Epith Cells 0 SEEN Urine Bacteria 0 SEEN Hyaline Casts 0-5 SEEN Urine Mucus 0 SEEN Urine Opiates Screen Urine Methadone Screen Ur Barbiturates Screen Ur Phencyclidine Scrn Ur Amphetamines Screen U Methamphetamin-MDMA U Benzodiazepines Scrn Urine Cocaine Screen U Cannabinoids Screen Ur Drug Screen Comment 05/11/18 05/11/18 05/11/18 12:25 22:20 22:20 WBC 22.2 H RBC 5.58 Hgb 17.9 H Hct 53.3 MCV 95.5 H MCH 32.1 H MCHC 33.6 RDW 12.7 RDW Differential 44.3 H Plt Count 108 L MPV 10.8 Immature Gran % (Auto) 0.700 Neut % (Auto) 75.7 H Lymph % (Auto) 11.7 L Grainger % (Auto) 11.7 H Eos % (Auto) 0.1 Baso % (Auto) 0.1 Absolute Neuts (auto) 16.8 H Absolute Lymphs (auto) 2.60 Total Counted Not Reportable Differential Comment SCANNED Specimen Type Sample Site pH Bicarbonate Actual POC Total CO2 Base Excess O2 Saturation ABG pCO2 ABG pO2 Kuldeep Test O2 Delivery Device Liter Flow Blood Gas Notified Whom Blood Gas Notified Time Sodium 141 Potassium 3.4 L Chloride 103 Carbon Dioxide 16.0 L Anion Gap 22 H BUN 9 Creatinine 1.15 Estim Creat Clear Calc 58.68 Est GFR (MDRD) Af Amer 83 Est GFR (MDRD) Non-Af 69 BUN/Creatinine Ratio 7.8 L Glucose 153 H Lactic Acid Calcium 7.2 L Magnesium 1.6 Total Bilirubin 1.80 H AST 109 H ALT 71 H Alkaline Phosphatase 125 H Total Creatine Kinase Troponin I 0.059 H Total Protein 7.7 Albumin 3.4 Globulin 4.3 H Albumin/Globulin Ratio 0.8 L Urine Color Urine Clarity Urine pH Ur Specific [place] Urine Protein Urine Glucose (UA) Urine Ketones Urine Occult Blood Urine Nitrite Urine Bilirubin Urine Urobilinogen Ur Leukocyte Esterase Urine RBC Urine WBC Ur Squamous Epith Cells Urine Bacteria Hyaline Casts Urine Mucus Urine Opiates Screen NEGATIVE Urine Methadone Screen NEGATIVE Ur Barbiturates Screen NEGATIVE Ur Phencyclidine Scrn NEGATIVE Ur Amphetamines Screen NEGATIVE U Methamphetamin-MDMA NEGATIVE U Benzodiazepines Scrn NEGATIVE Urine Cocaine Screen NEGATIVE U Cannabinoids Screen POSITIVE H Ur Drug Screen Comment 05/11/18 05/11/18 05/11/18 22:27 22:40 23:28 WBC RBC Hgb Hct MCV MCH MCHC RDW RDW Differential Plt Count MPV Immature Gran % (Auto) Neut % (Auto) Lymph % (Auto) Grainger % (Auto) Eos % (Auto) Baso % (Auto) Absolute Neuts (auto) Absolute Lymphs (auto) Total Counted Differential Comment Specimen Type ART ART Sample Site L Radial L Radial pH 7.17 L* 7.34 L Bicarbonate Actual 16.4 L 27.1 H POC Total CO2 18 29 Base Excess -12 L 1 O2 Saturation 99 100 H ABG pCO2 45.1 H 49.9 H ABG pO2 197 H 205 H Kuldeep Test POS POS O2 Delivery Device NRB Mask NRB Mask Liter Flow 15.0 15.0 Blood Gas Notified Whom HOSP HOSP Blood Gas Notified Time 2219 2324 Sodium Potassium Chloride Carbon Dioxide Anion Gap BUN Creatinine Estim Creat Clear Calc Est GFR (MDRD) Af Amer Est GFR (MDRD) Non-Af BUN/Creatinine Ratio Glucose Lactic Acid 8.9 H* Calcium Magnesium Total Bilirubin AST ALT Alkaline Phosphatase Total Creatine Kinase Troponin I Total Protein Albumin Globulin Albumin/Globulin Ratio Urine Color Urine Clarity Urine pH Ur Specific [place] Urine Protein Urine Glucose (UA) Urine Ketones Urine Occult Blood Urine Nitrite Urine Bilirubin Urine Urobilinogen Ur Leukocyte Esterase Urine RBC Urine WBC Ur Squamous Epith Cells Urine Bacteria Hyaline Casts Urine Mucus Urine Opiates Screen Urine Methadone Screen Ur Barbiturates Screen Ur Phencyclidine Scrn Ur Amphetamines Screen U Methamphetamin-MDMA U Benzodiazepines Scrn Urine Cocaine Screen U Cannabinoids Screen Ur Drug Screen Comment Assessment/Plan All Active Problems Fall (Acute) Rhabdomyolysis (Acute)
[2018-05-12 01:11] LABS: Bedside Glucose 161 mg/dL (70-110)
--- NOTE | 2018-05-12 02:02 | PCM.RX.CS ---
Consult Pharmacy has been consulted to manage selected antiobiotic: Vancomycin Type of Consult: New start Labs: Sodium 141 mmol/L (136-145) 05/11/18 22:20 Potassium 3.4 mmol/L (3.5-5.1) L 05/11/18 22:20 Chloride 103 mmol/L (98-107) 05/11/18 22:20 Carbon Dioxide 16.0 mmol/L (21.0-32.0) L 05/11/18 22:20 Anion Gap 22 (5-15) H 05/11/18 22:20 BUN 9 mg/dL (7-18) 05/11/18 22:20 Creatinine 1.15 mg/dL (0.70-1.30) 05/11/18 22:20 Est GFR (MDRD) Af Amer 83 mL/min (>60) 05/11/18 22:20 Est GFR (MDRD) Non-Af 69 mL/min (>60) 05/11/18 22:20 BUN/Creatinine Ratio 7.8 RATIO (10-20) L 05/11/18 22:20 Glucose 153 mg/dL (74-106) H 05/11/18 22:20 Weight used for dosin.8 kg Estimated Creatinine Clearance: 58.68 Goal Trough: 10-15 mcg/mL Pharmacy Plan for Drug Dosing: Pharmacy Service will continue to monitor and adjust dosing as required. Medications Vancomycin HCl 1,500 mg/ (Sodium Chloride) 530 mls @ 250 mls/hr IV Q24H DAX Vancomycin HCl (Vancomycin) 1,000 mg in 200 mls @ 200 mls/hr IV X1 ONE Stop: 05/12/18 02:44 Follow-Up Labs: Trough Vancomycin Labs to be done on [date and time ordered]: 05/13 @ 0200
[2018-05-12] MEDS: Vancomycin IV 1,000 MG/200 ML BAG 200 MG IV (02:08)
[2018-05-12 02:47] LABS: Reflex Lactate? Y
--- NOTE | 2018-05-12 03:31 | PCM.PN.BLA ---
Progress Note Rapid response was called on account at 22:05 of patient having had a seizure. Nurse had called me about a few minutes prior to rapid response being called because patient was having altered mental status and he did not have a CAT scan of his head done when he was admitted on account of fall. CT of the head was ordered stat and subsequently rapid response was called on account of patient having a seizure. Seizure lasted for just a few minutes and was generalized and tonic. Blood glucose checked at 161. Patient became very agitated after the seizure and was thrashing around. He calmed down after he was given a dose of IV Ativan 2 mg. He was also noted to be febrile with temperature of 99.9 Fahrenheit. Other vitals showed pulse rate of 121 and respiratory rate of 28 blood pressure was 195/113. He was saturating at 96% on oxygen. Stat CBC and CMP as well as magnesium and troponin were ordered. Lactic acid was also ordered. Stat CT of the head was also ordered. Decision made to transfer patient up to ICU for closer monitoring. Brain CT results showed chronic involutional changes of the brain with bilateral frontal lobe atrophy which could be assisted with ethanol abuse. There was no evidence of intracranial hemorrhage or calvarial fracture. Lactic acid came back elevated at 8.9 which was to be expected considering the fact that he had had a seizure. Initial ABG showed pH of 7.14 with bicarb of 16. Repeat ABG after patient was hydrated for about an hour showed pH of 7.34 and bicarb of 27. PCO2 was 49.9. Patient was still on 15 L of oxygen by nonrebreather mask. Labs showed elevated white cell count of 22.2 which had trended up from 16.6 and hemoglobin was 17.9 with platelets of 108. Bicarb on BMP was 16 with anion gap of 22 and initial troponin was 0.059. Will consult neurology on account of seizure. Magnesium was 1.6. Will replace to maintain above 2. Blood cultures were taken and patient was started on IV vancomycin and IV Zosyn on account of sepsis with unclear focus of infection. Patient was also noted to be having pain in the right hip. Start x-ray done showed acute traumatic right intertrochanteric fracture which is comminuted with angulation convex laterally. Will consult orthopedic surgery. Potassium was also 3.4. We will replace and monitor.
[2018-05-12 03:39] LABS: Lactic Acid 1.5 mmol/L (0.4-2.0)
[2018-05-12] MEDS: Potassium Chloride 10mEq/100mL 10 MEQ/100 ML IV.SOLN. 100 MEQ IV BOLUS ×2 (04:36→05:55)
[2018-05-12 04:59] LABS: Absolute Lymphocyte Count 1.62 X10^3/ul (0.83-4.51); Absolute Neutrophil Count 9.2 X10^3/uL (2.0-7.7); Basophil# 0.02 X10^3/uL; Basophil% 0.2 % (0-1); Eosinophil# 0.01 X10^3/uL; Eosinophils% 0.1 % (0-5); Hematocrit 40.9 % (40-54); Hemoglobin 13.8 g/dl (13.0-16.5); Lymphocyte # 1.62 X10^3/ul (4.0); Lymphocyte % 13.2 % (19-41); Mean Corp Hgb Conc 33.7 g/gl (32-36); Mean Corpuscular Hgb 31.4 pg (27.0-32.0); Mean Corpuscular Volume 93.2 fL (80-94); Mean Platelet Vol. 10.6 fl (6.2-12.0); Monocyte% 11.4 % (0-10); Neutrophil # 9.18 X10^3/uL (2.7-7.7); Neutrophil % 74.7 % (47-70); POSITIVE COUNT NO; POSITIVE DIFFERENTIAL NO; POSITIVE MORPHOLOGY NO; Platelet Count 71 K/mm3 (150-450); RBC Distribution Width CV 12.6 % (11.6-14.6); RBC Distribution Width SD 41.5 fl (35.1-43.9); Red Blood Count 4.39 M/mm3 (4.6-6.2); White Blood Count 12.3 K/mm3 (4.4-11.0)
[2018-05-12 05:33] LABS: Anion Gap 7 (5-15); BUN 10 mg/dL (7-18); CPK Total, Creatine Kinase 2957 U/L (39-308); Calcium,Total 6.5 mg/dL (8.5-10.1); Chloride 106 mmol/L (98-107); Creatinine, Serum 0.67 mg/dL (0.70-1.30); EST Glomerular Filtration Rate 128 mL/min (>60); Est Glom Filt Rate - Afr Amer 155 mL/min (>60); Estimated Creatinine Clearance 100.72 ml/min; Glucose 113 mg/dL (74-106); Potassium 3.4 mmol/L (3.5-5.1); Sodium Level 143 mmol/L (136-145)
--- NOTE | 2018-05-12 05:49 | RAD_ITS ---
STUDY: X-RAY CHEST REASON FOR EXAM: Male, 62 years old. Confusion. Preoperative evaluation. TECHNIQUE: Single AP portable view of the chest. COMPARISON: None. FINDINGS: EKG electrodes are seen. Increased linear markings in the right midlung suggestive of scarring. Vascular congestion. There is no demonstrated pleural abnormality. There is borderline cardiomegaly. Normal mediastinum and bernice. Normal visualized pulmonary arteries. There is atherosclerotic calcification of the aortic arch with tortuosity. There are diffuse degenerative changes of the visualized thoracic spine. Findings suggestive of ankylosing spondylitis. Normal visualized ribs, clavicles, and shoulders. There is no demonstrated abnormality of the visualized soft tissue structures of the upper abdomen. RAD/Chest 1 View (Portable) IMPRESSION: Fine suggestive of linear scarring in the right midlung without evidence of vascular congestion. Electronically Signed: Venkata Franklin MD at 15:57 EST Tel [phone], Service support ,
[2018-05-12] MEDS: Piperacil/Tazobactam 3.375 GM/50 ML ML IV (06:42)
--- NOTE | 2018-05-12 06:46 | RAD_ITS ---
Study: Intraoperative views of right hip nailing Prior study: Preoperative images of 05/11/2018 PROCEDURE: Multiple intraoperative views of the right hip were obtained. FINDINGS: Status post ORIF changes of a comminuted intertrochanteric fracture of the right hip are noted. There is a longstem femoral sue extending to the distal femoral metaphysis. IMPRESSION: Status post open reduction and internal fixation of previously noted comminuted intertrochanteric fracture. Major fracture fragments appear in good alignment. Electronically Signed: Leandro Sullivan MD at 17:09 EST , Service support , RAD/Hip Min 2 Views (Portable)
--- NOTE | 2018-05-12 08:00 | PCM.PN.HOSP ---
Patient Problems: Active and Suspected Problems Fall (Acute) Rhabdomyolysis (Acute) Subjective: Last night events are noted. When I saw in the ER yesterday afternoon, patient did not had fever or chills but was hemodynamically stable except high blood pressure. Patient had seizure all of a sudden although I do not have previous history of seizure disorder. Rapid response was called. As per documentation it seems patient has 2 seizures and Ativan was given. Patient was confused. Patient also had right hip fracture as per repeat x-ray done last night although first hip x-ray was negative. There was no swelling of the right hip region yesterday. No fall since admission. Patient also had low-grade fever, T-max 100 Fahrenheit. Blood pressure is controlled. Lactic acid was high 8.9, expected after the seizure. Repeat LA was normal. Calcium 6.5. Total CK went up after seizure. WBC count was also transiently high probably after seizure. neuro and orthopedic surgeon consulted. Patient has history of hypertension for about 10-15 years and was on lisinopril although dose not clear. He denies history of congestive heart failure, coronary artery disease although started to smoking about a pack per day since age of 12 or 13. Currently smokes 4 cigars/day. Also drinking alcohol and states quit about 3-4 years ago Vitals/I&O's: Vital Signs Temp Pulse Resp BP Pulse Ox 99.2 F H 86 21 H 138/84 H 96 05/12/18 07:00 05/12/18 07:00 05/12/18 07:00 05/12/18 07:00 05/12/18 07:00 Oxygen Flow Rate (L/min) 2 Oxygen Delivery Method Nasal Cannula Weight: 169 lb 8.568 oz Body Mass Index (BMI) 27.4 Intake and Output for Last 24 Hours 05/10/18 05/11/18 05/12/18 23:59 23:59 23:59 Intake Total 597 / 597 1061 / 1061 Output Total 850 / 850 300 / 300 Balance -253 / -253 761 / 761 General: Alert, Oriented x3, Cooperative HEENT: Atraumatic, PERRLA, EOMI, Normocephalic, - - Very hard of hearing Oral: Dry Mucosa - Tongue is coated Neck: Supple, No JVD, Negative Carotid Bruits Lungs: Clear to auscultation, No rhonchi, No wheeze, No rales, Diminished Cardiovascular: Regular rate, Regular Rhythm, Normal S1, Normal S2, No murmurs Abdomen: Bowel Sounds Present, Soft, Non Tender, - - Mild gaseous distention better than before Extremities: No edema, Capillary Refill Less than 3 Seconds Skin: No breakdown, Rash Present - Dry with chronic fissuring and thickening with a scaling like Toad skin, typical of psoriatic Musculoskeletal: Arthritic Changes, Tenderness, - - Severe tenderness present over lumbar spine, neck and right hip. Right hip region is tender, swollen. Patient is not able to flex right hip and right knee. Lower extremity weakness secondary to pain. Neurological: Cranial nerves II-XII grossly intact, Neuro grossly intact, Motor Exam 5/5 strength throughout, - - DTR 3+ in both knees. Babinski sign negative Psych/Mental Status: Normal Affect, Appropriate Laboratory Results 05/11/18 10:47: WBC 16.6 H, RBC 5.77, Hgb 18.4 H*, Hct 52.7, MCV 91.3, MCH 31.9, MCHC 34.9, RDW 12.7, RDW Differential 41.8, Plt Count 102 L, MPV 10.1, Immature Gran % (Auto) 0.200, Neut % (Auto) 86.0 H, Lymph % (Auto) 10.0 L, [place] % (Auto) 3.7, Eos % (Auto) 0.0, Baso % (Auto) 0.1, Absolute Neuts (auto) 14.3 H, Absolute Lymphs (auto) 1.65, Total Counted Not Reportable 05/11/18 10:47: Sodium 143, Potassium 3.5, Chloride 102, Carbon Dioxide 29.0, Anion Gap 12, BUN 11, Creatinine 0.89, Estim Creat Clear Calc 75.82, Est GFR (MDRD) Af Amer 111, Est GFR (MDRD) Non-Af 92, BUN/Creatinine Ratio 12.3, Glucose 122 H, Calcium 8.6, Total Creatine Kinase 1371 H 05/11/18 12:25: Urine Color Yellow, Urine Clarity Sl. Cloudy, Urine pH 5.0, Ur Specific [place] 1.025, Urine Protein 500 H, Urine Glucose (UA) Normal, Urine Ketones 5 H, Urine Occult Blood 250 H, Urine Nitrite Negative, Urine Bilirubin Negative, Urine Urobilinogen 1 H, Ur Leukocyte Esterase 25 H, Urine RBC 0 SEEN, Urine WBC 0-5 SEEN, Ur Squamous Epith Cells 0 SEEN, Urine Bacteria 0 SEEN, Hyaline Casts 0-5 SEEN, Urine Mucus 0 SEEN 05/11/18 12:25: Urine Opiates Screen NEGATIVE, Urine Methadone Screen NEGATIVE, Ur Barbiturates Screen NEGATIVE, Ur Phencyclidine Scrn NEGATIVE, Ur Amphetamines Screen NEGATIVE, U Methamphetamin-MDMA NEGATIVE, U Benzodiazepines Scrn NEGATIVE, Urine Cocaine Screen NEGATIVE, U Cannabinoids Screen POSITIVE H, Ur Drug Screen Comment 05/11/18 22:12: POC Glucose 161 H 05/11/18 22:20: WBC 22.2 H, RBC 5.58, Hgb 17.9 H, Hct 53.3, MCV 95.5 H, MCH 32.1 H, MCHC 33.6, RDW 12.7, RDW Differential 44.3 H, Plt Count 108 L, MPV 10.8, Immature Gran % (Auto) 0.700, Neut % (Auto) 75.7 H, Lymph % (Auto) 11.7 L, [place] % (Auto) 11.7 H, Eos % (Auto) 0.1, Baso % (Auto) 0.1, Absolute Neuts (auto) 16.8 H, Absolute Lymphs (auto) 2.60, Total Counted Not Reportable, Differential Comment SCANNED 05/11/18 22:20: Sodium 141, Potassium 3.4 L, Chloride 103, Carbon Dioxide 16.0 L, Anion Gap 22 H, BUN 9, Creatinine 1.15, Estim Creat Clear Calc 58.68, Est GFR (MDRD) Af Amer 83, Est GFR (MDRD) Non-Af 69, BUN/Creatinine Ratio 7.8 L, Glucose 153 H, Calcium 7.2 L, Magnesium 1.6, Total Bilirubin 1.80 H, AST 109 H, ALT 71 H, Alkaline Phosphatase 125 H, Troponin I 0.059 H, Total Protein 7.7, Albumin 3.4, Globulin 4.3 H, Albumin/Globulin Ratio 0.8 L 05/11/18 22:27: Specimen Type ART, Sample Site L Radial, pH 7.17 L*, Bicarbonate Actual 16.4 L, POC Total CO2 18, Base Excess -12 L, O2 Saturation 99, ABG pCO2 45.1 H, ABG pO2 197 H, Kuldeep Test POS, O2 Delivery Device NRB Mask, Liter Flow 15.0, Blood Gas Notified Whom VIJI FERGUSON, Blood Gas Notified Time 221905/11/18 22:40: Lactic Acid 8.9 H* 05/11/18 23:28: Specimen Type ART, Sample Site L Radial, pH 7.34 L, Bicarbonate Actual 27.1 H, POC Total CO2 29, Base Excess 1, O2 Saturation 100 H, ABG pCO2 49.9 H, ABG pO2 205 H, Kuldeep Test POS, O2 Delivery Device NRB Mask, Liter Flow 15.0, Blood Gas Notified Whom VIJI FERGUSON, Blood Gas Notified Time 232405/12/18 03:06: Lactic Acid 1.5 05/12/18 04:45: WBC 12.3 H, RBC 4.39 L, Hgb 13.8, Hct 40.9, MCV 93.2, MCH 31.4, MCHC 33.7, RDW 12.6, RDW Differential 41.5, Plt Count 71 L, MPV 10.6, Immature Gran % (Auto) 0.400, Neut % (Auto) 74.7 H, Lymph % (Auto) 13.2 L, [place] % (Auto) 11.4 H, Eos % (Auto) 0.1, Baso % (Auto) 0.2, Absolute Neuts (auto) 9.2 H, Absolute Lymphs (auto) 1.62, Total Counted Not Reportable 05/12/18 04:45: Sodium 143, Potassium 3.4 L, Chloride 106, Carbon Dioxide 30.0, Anion Gap 7, BUN 10, Creatinine 0.67 L, Estim Creat Clear Calc 100.72, Est GFR (MDRD) Af Amer 155, Est GFR (MDRD) Non-Af 128, BUN/Creatinine Ratio 15.0, Glucose 113 H, Calcium 6.5 L*, Total Creatine Kinase 2957 H Current Medications Acetaminophen (Tylenol) 650 mg PO Q6H PRN PRN PRN Reason: Mild Pain (scale 0-3)/T>100.7 Al Hydroxide/Mg Hydroxide (Mylanta Ii) 30 ml PO Q6H PRN PRN PRN Reason: Gastric burning Bisacodyl (Dulcolax) 10 mg RECTAL DAILY PRN PRN PRN Reason: Constipation Cyclobenzaprine HCl (Flexeril) 10 mg PO TID ON LICENSE OF [facility] Last Admin: 05/12/18 06:38 Dose: Not Given Emollient Ointment (Eucerin Intensive Repair) 1 applic TOPICAL 4X/DAY PRN PRN; Protocol PRN Reason: DRY SKIN Enoxaparin Sodium (Lovenox) 40 mg SC DAILY@1000 DAX Last Admin: 05/11/18 15:02 Dose: 40 mg Hydralazine HCl (Apresoline Iv) 10 mg IV Q6H PRN PRN PRN Reason: High Blood Pressure Sodium Chloride () 1,000 mls @ 150 mls/hr IV .Q6H40M ON LICENSE OF [facility] Last Admin: 05/12/18 00:07 Dose: 150 mls/hr Sodium Chloride () 250 mls @ 15 mls/hr IV .[id number] PRN PRN Reason: SALINE FLUSH Last Admin: 05/12/18 00:07 Dose: 15 mls/hr Piperacillin Sod/Tazobactam Sod (Zosyn) 3.375 gm in 50 mls @ 12.5 mls/hr IV Q8 ON LICENSE OF [facility] Last Admin: 05/12/18 06:42 Dose: 12.5 mls/hr Vancomycin IV Pharmacy to Dose (1 ea/ Sodium Chloride) 500 mls @ 250 mls/hr IV X1 PRN; Protocol PRN Reason: Rx to Dose Vancomycin HCl 1,500 mg/ (Sodium Chloride) 530 mls @ 250 mls/hr IV Q24H ON LICENSE OF [facility] Morphine Sulfate () 2 - 4 mg IV Q3H PRN PRN PRN Reason: Severe Pain (pain scale 6-10) Ondansetron HCl (Zofran) 4 mg IV Q8H PRN PRN PRN Reason: NAUSEA Last Admin: 05/11/18 15:01 Dose: 4 mg Oxycodone HCl (Oxycontin) 15 mg PO BID ON LICENSE OF [facility] Last Admin: 05/12/18 00:57 Dose: Not Given Oxycodone HCl (Oxyir) 10 mg PO Q4H PRN PRN PRN Reason: Moderate Pain (pain scale 4-5) Polyethylene Glycol (Miralax) 17 gm PO DAILY ON LICENSE OF [facility] Potassium Ch[facility] ([facility]Dur[facility] Last Admin: 05/12/18 07:59 Dose: Not Given Promethazine HCl (Phenergan) 12.5 mg IV Q6H PRN PRN PRN Reason: NAUSEA/VOMITING Senna/Docusate Sodium (Senokot-S, Marcie-Colace) 2 tablet PO BID DAX Last Admin: 05/12/18 00:02 Dose: Not Given Sodium Chloride () 5 - 15 ml IV UD PRN PRN Reason: SALINE FLUSH Last Admin: 05/11/18 23:06 Dose: 15 ml Zolpidem Tartrate (Ambien (Generic)) 5 mg PO QHS PRN PRN PRN Reason: INSOMNIA Medical Necessity - Tobacco Use Smoking Status: Current every day smoker Assessment/Plan All Active Problems Fall (Acute) Rhabdomyolysis (Acute) The patient is a 62 year old M with significant history of lumbosacral spondylosis and cervical spondylosis with chronic neck and back pain, sciatica in nature came to ER after he fell down yesterday. He fell down because his right hip twisted as he was walking on the level ground. He could not stand up or move around and was laying down for 12 hours. Patient denies loss of consciousness or hitting the head. Before fall, he was not using cane or walker but he used cane in the past for some time. Patient is not able to roll over or sit up because of severe pain. He further states he has chronic back pain and neck pain for more than 20 years with history of 5 times back injuries. He denies back surgery. His neck is in chronic flexor deformity. He is to see chiropractor in [facility] and probably some cartridge belt puncher there and was put on Enbrel. He said it did not help one probably currently not following any doctor. In ED, his blood pressure was found high 195/117, but no tachycardia, tachypnea or hypoxia. Hemoglobin is 18.4, hematocrit 52.7 probably due to hemoconcentration. Urine specific gravity is normal, protein 500, CK 1000 371 suggestive of rhabdomyolysis. The patient initially was admitted on regular MedSurg floor but later was transferred to ICU after rapid response was called for seizure and was managed. 1. New onset seizure, exact etiology unclear, probably related to metabolic derangements status post rapid response: Patient had CT head which does not show acute change or intracranial hemorrhage. There is chronic bilateral frontal lobe atrophy probably secondary to alcohol use although denies drinking heavy in the past. Neurologist has been consulted. EEG ordered. 2. Right angulated, comminuted, intertrochanteric fracture, not reported on the first hip x-ray: No second hip x-ray reported as Moderate degenerative arthrosis of the right hip. Discussed with Dr. Cunha. Patient most likely taken for surgery afternoon. 3. Hypertension, uncontrolled sinus tachycardia: Patient denies any history of coronary artery disease, CHF but he has not been following physician and also noncompliant; not taking antihypertensive medication. 2D echo is ordered. Currently blood pressure is better than ER. On lisinopril 10 mg daily. Chest x-ray does not show acute change. 4. Increased anion gap metabolic acidosis with compensatory respiratory alkalosis, hypokalemia, hypocalcemia: This happened after seizure but not clear as it cause or effect of seizure. Calcium is replaced. Repeat ABG showed pH seven-point 350/205. Currently patient is on 2 L of oxygen. 5 Fall, prior to admission most likely mechanical secondary to chronic right hip joint arthritis exacerbated with chronic lumbosacral degenerative spondylosis with rhabdomyolysis:Chronic lumbosacral pain, sciatica in nature with features of ankylosing spondylitis on thoracic and lumbar spine x-rays: Although patient does not know the diagnosis of ankylosing spondylitis but he has positive symptoms of and he was getting Enbrel for that. IV fluid normal saline at 150 mL/h. Monitor intake and output. CK got elevated after seizure. PT and OT. Pain management and muscle relaxant. 7. Hemoconcentration with severe dehydration: IV fluid as mentioned above. 8 Chronic psoriasis and possible associated psoriatic arthritis: Follow-up cartridge belt puncher outpatient. 10: Thrombocytopenia, present on admission: Patient is admitted with platelet count 102. It dropped to 71,000. 5 units of platelet ordered for transfusion prior to surgery. Bilateral SCDs Clinical Impression(s) from Imaging Studies Clinical Impression(s) from Imaging Studies Hip/Pelvis X-Ray 05/11/18 10:32 IMPRESSION: Degenerative changes of the hip. Findings suggestive of ankylosing spondylitis. Electronically Signed: Venkata Franklin MD at 12:15 EST Tel [phone], Service support , Lumbar Spine X-Ray 05/11/18 10:32 IMPRESSION: Findings in keeping with ankylosing spondylitis. Electronically Signed: Venkata Franklin MD at 12:17 EST Tel [phone], Service support , Thoracic Spine X-Ray 05/11/18 10:32 IMPRESSION: Findings in keeping with ankylosing spondylitis. Gallstones. Abdomen X-Ray 05/11/18 13:51 IMPRESSION: Gallstones. Calculus in the lower focus of the right kidney. Findings in keeping with ankylosing spondylitis. Brain CT 05/11/18 22:07 IMPRESSION: Chronic involutional changes of the brain. Bilateral frontal lobe atrophy. This may be associated with ethanol abuse. There is no evidence of intracranial hemorrhage or calvarial fracture. Hip/Pelvis X-Ray 05/11/18 23:31 IMPRESSION: Angulated, comminuted, right intertrochanteric fracture. Moderate degenerative arthrosis of the right hip. 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 Hip/Pelvis X-Ray 05/11/18 10:32 IMPRESSION: Degenerative changes of the hip. Findings suggestive of ankylosing spondylitis. Lumbar Spine X-Ray 05/11/18 10:32 IMPRESSION: Findings in keeping with ankylosing spondylitis. Thoracic Spine X-Ray 05/11/18 10:32 IMPRESSION: Findings in keeping with ankylosing spondylitis. Gallstones. Code Visit Inpatient E&M: 01827 Init Hosp L3
--- NOTE | 2018-05-12 08:05 | PN_ITS ---
Patient Problems: Active and Suspected Problems Fall (Acute) Rhabdomyolysis (Acute) Subjective: Last night events are noted. When I saw in the ER yesterday afternoon, patient did not had fever or chills but was hemodynamically stable except high blood pressure. Patient had seizure all of a sudden although I do not have previous history of seizure disorder. Rapid response was called. As per documentation it seems patient has 2 seizures and Ativan was given. Patient was confused. Patient also had right hip fracture as per repeat x-ray done last night although first hip x-ray was negative. There was no swelling of the right hip region yesterday. No fall since admission. Patient also had low-grade fever, T-max 100 Fahrenheit. Blood pressure is controlled. Lactic acid was high 8.9, expected after the seizure. Repeat LA was normal. Calcium 6.5. Total CK went up after seizure. WBC count was also transiently high probably after seizure. neuro and orthopedic surgeon consulted. Patient has history of hypertension for about 10-15 years and was on lisinopril although dose not clear. He denies history of congestive heart failure, coronary artery disease although started to smoking about a pack per day since age of 12 or 13. Currently smokes 4 cigars/day. Also drinking alcohol and states quit about 3-4 years ago Vitals/I&O's: Vital Signs Temp Pulse Resp BP Pulse Ox 99.2 F H 86 21 H 138/84 H 96 05/12/18 07:00 05/12/18 07:00 05/12/18 07:00 05/12/18 07:00 05/12/18 07:00 Oxygen Flow Rate (L/min) 2 Oxygen Delivery Method Nasal Cannula Weight: 169 lb 8.568 oz Body Mass Index (BMI) 27.4 Intake and Output for Last 24 Hours 05/10/18 05/11/18 05/12/18 23:59 23:59 23:59 Intake Total 597 / 597 1061 / 1061 Output Total 850 / 850 300 / 300 Balance -253 / -253 761 / 761 General: Alert, Oriented x3, Cooperative HEENT: Atraumatic, PERRLA, EOMI, Normocephalic, - - Very hard of hearing Oral: Dry Mucosa - Tongue is coated Neck: Supple, No JVD, Negative Carotid Bruits Lungs: Clear to auscultation, No rhonchi, No wheeze, No rales, Diminished Cardiovascular: Regular rate, Regular Rhythm, Normal S1, Normal S2, No murmurs Abdomen: Bowel Sounds Present, Soft, Non Tender, - - Mild gaseous distention better than before Extremities: No edema, Capillary Refill Less than 3 Seconds Skin: No breakdown, Rash Present - Dry with chronic fissuring and thickening with a scaling like Toad skin, typical of psoriatic Musculoskeletal: Arthritic Changes, Tenderness, - - Severe tenderness present over lumbar spine, neck and right hip. Right hip region is tender, swollen. Patient is not able to flex right hip and right knee. Lower extremity weakness secondary to pain. Neurological: Cranial nerves II-XII grossly intact, Neuro grossly intact, Motor Exam 5/5 strength throughout, - - DTR 3+ in both knees. Babinski sign negative Psych/Mental Status: Normal Affect, Appropriate Laboratory Results 05/11/18 10:47: WBC 16.6 H, RBC 5.77, Hgb 18.4 H*, Hct 52.7, MCV 91.3, MCH 31.9, MCHC 34.9, RDW 12.7, RDW Differential 41.8, Plt Count 102 L, MPV 10.1, Immature Gran % (Auto) 0.200, Neut % (Auto) 86.0 H, Lymph % (Auto) 10.0 L, Waller % (Auto) 3.7, Eos % (Auto) 0.0, Baso % (Auto) 0.1, Absolute Neuts (auto) 14.3 H, Absolute Lymphs (auto) 1.65, Total Counted Not Reportable 05/11/18 10:47: Sodium 143, Potassium 3.5, Chloride 102, Carbon Dioxide 29.0, Anion Gap 12, BUN 11, Creatinine 0.89, Estim Creat Clear Calc 75.82, Est GFR (MDRD) Af Amer 111, Est GFR (MDRD) Non-Af 92, BUN/Creatinine Ratio 12.3, Glucose 122 H, Calcium 8.6, Total Creatine Kinase 1371 H 05/11/18 12:25: Urine Color Yellow, Urine Clarity Sl. Cloudy, Urine pH 5.0, Ur Specific [place] 1.025, Urine Protein 500 H, Urine Glucose (UA) Normal, Urine Ketones 5 H, Urine Occult Blood 250 H, Urine Nitrite Negative, Urine Bilirubin Negative, Urine Urobilinogen 1 H, Ur Leukocyte Esterase 25 H, Urine RBC 0 SEEN, Urine WBC 0-5 SEEN, Ur Squamous Epith Cells 0 SEEN, Urine Bacteria 0 SEEN, Hyaline Casts 0-5 SEEN, Urine Mucus 0 SEEN 05/11/18 12:25: Urine Opiates Screen NEGATIVE, Urine Methadone Screen NEGATIVE, Ur Barbiturates Screen NEGATIVE, Ur Phencyclidine Scrn NEGATIVE, Ur Amphetamines Screen NEGATIVE, U Methamphetamin-MDMA NEGATIVE, U Benzodiazepines Scrn NEGATIVE, Urine Cocaine Screen NEGATIVE, U Cannabinoids Screen POSITIVE H, Ur Drug Screen Comment 05/11/18 22:12: POC Glucose 161 H 05/11/18 22:20: WBC 22.2 H, RBC 5.58, Hgb 17.9 H, Hct 53.3, MCV 95.5 H, MCH 32.1 H, MCHC 33.6, RDW 12.7, RDW Differential 44.3 H, Plt Count 108 L, MPV 10.8, Immature Gran % (Auto) 0.700, Neut % (Auto) 75.7 H, Lymph % (Auto) 11.7 L, Waller % (Auto) 11.7 H, Eos % (Auto) 0.1, Baso % (Auto) 0.1, Absolute Neuts (auto) 16.8 H, Absolute Lymphs (auto) 2.60, Total Counted Not Reportable, Differential Comment SCANNED 05/11/18 22:20: Sodium 141, Potassium 3.4 L, Chloride 103, Carbon Dioxide 16.0 L , Anion Gap 22 H, BUN 9, Creatinine 1.15, Estim Creat Clear Calc 58.68, Est GFR (MDRD) Af Amer 83, Est GFR (MDRD) Non-Af 69, BUN/Creatinine Ratio 7.8 L, Glucose 153 H, Calcium 7.2 L, Magnesium 1.6, Total Bilirubin 1.80 H, AST 109 H, ALT 71 H , Alkaline Phosphatase 125 H, Troponin I 0.059 H, Total Protein 7.7, Albumin 3.4, Globulin 4.3 H, Albumin/Globulin Ratio 0.8 L 05/11/18 22:27: Specimen Type ART, Sample Site L Radial, pH 7.17 L*, Bicarbonate Actual 16.4 L, POC Total CO2 18, Base Excess -12 L, O2 Saturation 99, ABG pCO2 45.1 H, ABG pO2 197 H, Kuldeep Test POS, O2 Delivery Device NRB Mask, Liter Flow 15.0, Blood Gas Notified Whom VIJI FERGUSON, Blood Gas Notified Time 221905/11/18 22:40: Lactic Acid 8.9 H* 05/11/18 23:28: Specimen Type ART, Sample Site L Radial, pH 7.34 L, Bicarbonate Actual 27.1 H, POC Total CO2 29, Base Excess 1, O2 Saturation 100 H, ABG pCO2 49.9 H, ABG pO2 205 H, Kuldeep Test POS, O2 Delivery Device NRB Mask, Liter Flow 15.0, Blood Gas Notified Whom VIJI FERGUSON, Blood Gas Notified Time 232405/12/18 03:06: Lactic Acid 1.5 05/12/18 04:45: WBC 12.3 H, RBC 4.39 L, Hgb 13.8, Hct 40.9, MCV 93.2, MCH 31.4, MCHC 33.7, RDW 12.6, RDW Differential 41.5, Plt Count 71 L, MPV 10.6, Immature Gran % (Auto) 0.400, Neut % (Auto) 74.7 H, Lymph % (Auto) 13.2 L, Waller % (Auto) 11.4 H, Eos % (Auto) 0.1, Baso % (Auto) 0.2, Absolute Neuts (auto) 9.2 H, Absolute Lymphs (auto) 1.62, Total Counted Not Reportable 05/12/18 04:45: Sodium 143, Potassium 3.4 L, Chloride 106, Carbon Dioxide 30.0, Anion Gap 7, BUN 10, Creatinine 0.67 L, Estim Creat Clear Calc 100.72, Est GFR (MDRD) Af Amer 155, Est GFR (MDRD) Non-Af 128, BUN/Creatinine Ratio 15.0, Glucose 113 H, Calcium 6.5 L*, Total Creatine Kinase 2957 H Current Medications Acetaminophen (Tylenol) 650 mg PO Q6H PRN PRN PRN Reason: Mild Pain (scale 0-3)/T>100.7 Al Hydroxide/Mg Hydroxide (Mylanta Ii) 30 ml PO Q6H PRN PRN PRN Reason: Gastric burning Bisacodyl (Dulcolax) 10 mg RECTAL DAILY PRN PRN PRN Reason: Constipation Cyclobenzaprine HCl (Flexeril) 10 mg PO TID [facility] Last Admin: 05/12/18 06:38 Dose: Not Given Emollient Ointment (Eucerin Intensive Repair) 1 applic TOPICAL 4X/DAY PRN PRN; Protocol PRN Reason: DRY SKIN Enoxaparin Sodium (Lovenox) 40 mg SC DAILY@1000 DAX Last Admin: 05/11/18 15:02 Dose: 40 mg Hydralazine HCl (Apresoline Iv) 10 mg IV Q6H PRN PRN PRN Reason: High Blood Pressure Sodium Chloride () 1,000 mls @ 150 mls/hr IV .Q6H40M [facility] Last Admin: 05/12/18 00:07 Dose: 150 mls/hr Sodium Chloride () 250 mls @ 15 mls/hr IV .[id number] PRN PRN Reason: SALINE FLUSH Last Admin: 05/12/18 00:07 Dose: 15 mls/hr Piperacillin Sod/Tazobactam Sod (Zosyn) 3.375 gm in 50 mls @ 12.5 mls/hr IV Q8 [facility] Last Admin: 05/12/18 06:42 Dose: 12.5 mls/hr Vancomycin IV Pharmacy to Dose (1 ea/ Sodium Chloride) 500 mls @ 250 mls/hr IV X1 PRN; Protocol PRN Reason: Rx to Dose Vancomycin HCl 1,500 mg/ (Sodium Chloride) 530 mls @ 250 mls/hr IV Q24H [facility] Morphine Sulfate () 2 - 4 mg IV Q3H PRN PRN PRN Reason: Severe Pain (pain scale 6-10) Ondansetron HCl (Zofran) 4 mg IV Q8H PRN PRN PRN Reason: NAUSEA Last Admin: 05/11/18 15:01 Dose: 4 mg Oxycodone HCl (Oxycontin) 15 mg PO BID [facility] Last Admin: 05/12/18 00:57 Dose: Not Given Oxycodone HCl (Oxyir) 10 mg PO Q4H PRN PRN PRN Reason: Moderate Pain (pain scale 4-5) Polyethylene Glycol (Miralax) 17 gm PO DAILY [facility] Potassium Chloride ([facility]Dur) [facility] Last Admin: 05/12/18 07:59 Dose: Not Given Promethazine HCl (Phenergan) 12.5 mg IV Q6H PRN PRN PRN Reason: NAUSEA/VOMITING Senna/Docusate Sodium (Senokot-S, Marcie-Colace) 2 tablet PO BID ADX Last Admin: 05/12/18 00:02 Dose: Not Given Sodium Chloride () 5 - 15 ml IV UD PRN PRN Reason: SALINE FLUSH Last Admin: 05/11/18 23:06 Dose: 15 ml Zolpidem Tartrate (Ambien (Generic)) 5 mg PO QHS PRN PRN PRN Reason: INSOMNIA Medical Necessity - Tobacco Use Smoking Status: Current every day smoker Assessment/Plan All Active Problems Fall (Acute) Rhabdomyolysis (Acute) The patient is a 62 year old M with significant history of lumbosacral spondylosis and cervical spondylosis with chronic neck and back pain, sciatica in nature came to ER after he fell down yesterday. He fell down because his right hip twisted as he was walking on the level ground. He could not stand up or move around and was laying down for 12 hours. Patient denies loss of consciousness or hitting the head. Before fall, he was not using cane or walker but he used cane in the past for some time. Patient is not able to roll over or sit up because of severe pain. He further states he has chronic back pain and neck pain for more than 20 years with history of 5 times back injuries. He denies back surgery. 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 He is to see chiropractor in [facility] and probably some after school coordinator there and was put on Enbrel. He said it did not help one probably currently not following any doctor. In ED, his blood pressure was found high 195/117, but no tachycardia, tachypnea or hypoxia. Hemoglobin is 18.4, hematocrit 52.7 probably due to hemoconcentration. Urine specific gravity is normal, protein 500, CK 1000 371 suggestive of rhabdomyolysis. The patient initially was admitted on regular MedSurg floor but later was transferred to ICU after rapid response was called for seizure and was managed. 1. New onset seizure, exact etiology unclear, probably related to metabolic derangements status post rapid response: Patient had CT head which does not show acute change or intracranial hemorrhage. There is chronic bilateral frontal lobe atrophy probably secondary to alcohol use although denies drinking heavy in the past. Neurologist has been consulted. EEG ordered. 2. Right angulated, comminuted, intertrochanteric fracture, not reported on the first hip x-ray: No second hip x-ray reported as Moderate degenerative arthrosis of the right hip. Discussed with Dr. Cunha. Patient most likely taken for surgery afternoon. 3. Hypertension, uncontrolled sinus tachycardia: Patient denies any history of coronary artery disease, CHF but he has not been following physician and also noncompliant; not taking antihypertensive medication. 2D echo is ordered. Currently blood pressure is better than ER. On lisinopril 10 mg daily. Chest x-ray does not show acute change. 4. Increased anion gap metabolic acidosis with compensatory respiratory alkalosis, hypokalemia, hypocalcemia: This happened after seizure but not clear as it cause or effect of seizure. Calcium is replaced. Repeat ABG showed pH seven-point 3/50/205. Currently patient is on 2 L of oxygen. 5 Fall, prior to admission most likely mechanical secondary to chronic right hip joint arthritis exacerbated with chronic lumbosacral degenerative spondylosis with rhabdomyolysis:Chronic lumbosacral pain, sciatica in nature with features of ankylosing spondylitis on thoracic and lumbar spine x-rays: Although patient does not know the diagnosis of ankylosing spondylitis but he has positive symptoms of and he was getting Enbrel for that. IV fluid normal saline at 150 mL/h. Monitor intake and output. CK got elevated after seizure. PT and OT. Pain management and muscle relaxant. 7. Hemoconcentration with severe dehydration: IV fluid as mentioned above. 8 Chronic psoriasis and possible associated psoriatic arthritis: Follow-up after school coordinator outpatient. 10: Thrombocytopenia, present on admission: Patient is admitted with platelet count 102. It dropped to 71,000. 5 units of platelet ordered for transfusion prior to surgery. Bilateral SCDs Clinical Impression(s) from Imaging Studies Clinical Impression(s) from Imaging Studies Hip/Pelvis X-Ray 05/11/18 10:32 IMPRESSION: Degenerative changes of the hip. Findings suggestive of ankylosing spondylitis. Electronically Signed: Venkata Franklin MD at 12:15 EST Tel [phone], Service support , Lumbar Spine X-Ray 05/11/18 10:32 IMPRESSION: Findings in keeping with ankylosing spondylitis. Electronically Signed: Venkata Franklin MD at 12:17 EST Tel [phone], Service support , Thoracic Spine X-Ray 05/11/18 10:32 IMPRESSION: Findings in keeping with ankylosing spondylitis. Gallstones. Abdomen X-Ray 05/11/18 13:51 IMPRESSION: Gallstones. Calculus in the lower focus of the right kidney. Findings in keeping with ankylosing spondylitis. Brain CT 05/11/18 22:07 IMPRESSION: Chronic involutional changes of the brain. Bilateral frontal lobe atrophy. This may be associated with ethanol abuse. There is no evidence of intracranial hemorrhage or calvarial fracture. Hip/Pelvis X-Ray 05/11/18 23:31 IMPRESSION: Angulated, comminuted, right intertrochanteric fracture. Moderate degenerative arthrosis of the right hip. 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 Hip/Pelvis X-Ray 05/11/18 10:32 IMPRESSION: Degenerative changes of the hip. Findings suggestive of ankylosing spondylitis. Lumbar Spine X-Ray 05/11/18 10:32 IMPRESSION: Findings in keeping with ankylosing spondylitis. Thoracic Spine X-Ray 05/11/18 10:32 IMPRESSION: Findings in keeping with ankylosing spondylitis. Gallstones. Code Visit Inpatient E&M: 23292 Init Hosp L3
--- NOTE | 2018-05-12 08:14 | ECHOD_ITS ---
Reason For Study: HTN Procedure This was a 2D Doppler, Color Flow transthoracic echocardiogram. Exam performed portable in ICU/CCU. Left Ventricle Normal LV size. Mild concentric left ventricular hypertrophy. Left ventricular systolic function is normal. The estimated ejection fraction is 55 %. Transmitral and pulmonary venous doppler flow suggestive of impaired relaxation of left ventricle. Transmitral diastolic flow velocities suggest mild (stage 1) diastolic dysfunction (reversed pattern). No regional wall motion abnormalities noted. Right Ventricle Normal RV size. Normal systolic function. Atria Normal left atrium. Normal right atrium. Mitral Valve Normal mitral valve. Tricuspid Valve Normal tricuspid valve. Aortic Valve The aortic valve is not well visualized. Pulmonic Valve The pulmonic valve is not well visualized. Great Vessels Normal aortic root. The pulmonary artery is normal size. Normal inferior vena cava. Pericardium/Pleural No pericardial effusion. MMode/2D Measurements & Calculations LVIDd: 3.9 cm IVSd: 1.2 cm Ao root diam: 3.4 cm LVIDs: 2.4 cm LVPWd: 1.3 cm RVDd: 4.3 cm FS: 38.3 % LAV(MOD-bp): 43.6 ml LVAd ap4: 23.1 cm2 SV(MOD-sp4): 34.7 ml LAV(MOD-bp) Indexed: 24.3 ml/m2 EDV(MOD-sp4): 60.8 ml LAV(MOD-sp2): 45.2 ml EDV(sp4-el): 62.9 ml LAV(MOD-sp4): 38.8 ml LVAs ap4: 13.7 cm2 ESV(MOD-sp4): 26.1 ml ESV(sp4-el): 27.4 ml EF(MOD-sp4): 57.0 % EF(sp4-el): 56.5 % SV(sp4-el): 35.5 ml LA A4 area: 15.7 cm2 LA dimension(2D): 3.2 cm RA A4 area: 14.8 cm2 Time Measurements MV dec time: 0.25 sec Doppler Measurements & Calculations MV E max santiago: 48.6 cm/sec Lat Peak E' Santiago: 5.5 cm/sec Med Peak E' Santiago: 5.5 cm/sec MV A max santiago: 57.0 cm/sec E/E' lat: 8.9 E/E' med: 8.9 MV E/A: 0.85 Ao V2 max: 118.9 cm/sec LV V1 max: 85.0 cm/sec TR max santiago: 283.6 cm/sec Ao max P.7 mmHg LV V1 max P.9 mmHg TR max P.3 mmHg Interpretation Summary Normal LV size. Left ventricular systolic function is normal. The estimated ejection fraction is 55 %. Mild concentric left ventricular hypertrophy. Transmitral and pulmonary venous doppler flow suggestive of impaired relaxation of left ventricle Transmitral diastolic flow velocities suggest mild (stage 1) diastolic dysfunction (reversed pattern). Ordering Physician: Sudheer Lawton Referring Physician: OLEKSANDR SHARMA Performed By: Albina Reyes, IGOR, RVT
[2018-05-12] MEDS: oxyCODONE CR 15 MG Tablet PO ×2 (09:19→22:07)
[2018-05-12] MEDS: Senna/Docusate Sodium 1 Tablet 2 TABLET PO ×2 (09:19→22:07)
[2018-05-12] MEDS: Lisinopril 10 MG Tablet PO (09:19)
--- NOTE | 2018-05-12 10:10 | CON.PCM_ITS ---
Problem List (1) Fall Status: Acute Reason for Consult Date of Consultation: 05/12/18 Reason for Consultation: Right Hip displaced Intertrochanteric Fracture History of Present Illness: The patient is a 62 year old M who fell on May 11, 2018 when he states his right hip gave out. Patient was taken to [facility] emergency room in which x-rays were obtained. X-rays initially were read without fracture. Another set of x-rays were obtained which did reveal a right hip angulated comminuted intertrochanteric hip fracture. Patient has a chronic history of lumbosacral spondylosis and cervical spondylosis with chronic neck and back pain. Patient has been treated for his low back and neck in the past. He denies previous back surgery. She has been treated by a chiropractor. He states he was initially seen by [employer] and was put on Enbrel. He has no longer following any provider at this time for back pain or neck pain. Patient does have surgical history pertinent for testicular cancer and exploratory surgery on his abdomen. He denies any significant previous right hip pain or complications. It was not requiring any ambulatory assistance prior to the fall. Patient currently denies any chest pain, shortness of breath, fevers chills, recent infections. Patient denies any numbness and tingling into the right lower extremity. He has increased pain with any movement of the right lo wer extremity. Patient did come into the emergency room with elevated blood pressure. Patient did have episode of seizure while in the hospital. Patient does have medical history of hypertension. Patient is a smoker. Patient did have CT scan of the head which does not show acute change or intracranial hemorrhage. Neurology consult has been placed by medicine. Medicine is also getting an echo prior to surgery. 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 There is swelling and tenderness to palpation over the right hip. Sensation intact to light touch to saphenous, sural, superficial/deep peroneal, and tibial distribution. Capillary refill is less than 2 seconds. Range of motion of the right hip was deferred due to fracture. Patient does have positive logroll on the right. Patient does complain of pain and tenderness to palpation over the lumbar spine and neck. Diagnostic studies: 1. X-rays of the right hip were reviewed which does reveal comminuted angulated right hip intertrochanteric fracture. There is also osteoarthritic changes of the right hip with joint space narrowing, subchondral sclerosis, and osteophyte formation. No other acute findings of fracture were appreciated. 2. X-rays of the lumbar spine were reviewed which does show loss of lumbar lordosis. There is no appreciable fractures. Patient has endplate spondylosis of the lumbar vertebrae with multilevel degenerative disc disease and disc space narrowing. This is consistent with ankylosing spondylitis. There is also fusion of the SI joints bilaterally. Patient does have atherosclerotic calcification of the abdominal aorta. - Physical Exam General: Alert, Oriented x3, Cooperative Vital Signs Temp Pulse Resp BP Pulse Ox 99.2 F H 98 18 160/97 H 97 05/12/18 08:00 05/12/18 09:00 05/12/18 09:00 05/12/18 09:00 05/12/18 09:43 Oxygen Flow Rate (L/min) 2 Oxygen Delivery Method Nasal Cannula Weight: 76.9 kg Body Mass Index (BMI) 28.2 Intake and Output for Last 24 Hours 05/10/18 05/11/18 05/12/18 23:59 23:59 23:59 Intake Total 597 / 597 1061 / 1061 Output Total 850 / 850 300 / 300 Balance -253 / -253 761 / 761 Laboratory Tests Past 24 Hrs 05/11/18 05/11/18 05/11/18 10:47 10:47 12:25 WBC 16.6 H RBC 5.77 Hgb 18.4 H* Hct 52.7 MCV 91.3 MCH 31.9 MCHC 34.9 RDW 12.7 RDW Differential 41.8 Plt Count 102 L MPV 10.1 Immature Gran % (Auto) 0.200 Neut % (Auto) 86.0 H Lymph % (Auto) 10.0 L [place] % (Auto) 3.7 Eos % (Auto) 0.0 Baso % (Auto) 0.1 Absolute Neuts (auto) 14.3 H Absolute Lymphs (auto) 1.65 Total Counted Not Reportable Differential Comment Specimen Type Sample Site pH Bicarbonate Actual POC Total CO2 Base Excess O2 Saturation ABG pCO2 ABG pO2 Kuldeep Test O2 Delivery Device Liter Flow Blood Gas Notified Whom Blood Gas Notified Time Sodium 143 Potassium 3.5 Chloride 102 Carbon Dioxide 29.0 Anion Gap 12 BUN 11 Creatinine 0.89 Estim Creat Clear Calc 75.82 Est GFR (MDRD) Af Amer 111 Est GFR (MDRD) Non-Af 92 BUN/Creatinine Ratio 12.3 Glucose 122 H Lactic Acid Calcium 8.6 Magnesium Total Bilirubin AST ALT Alkaline Phosphatase Total Creatine Kinase 1371 H Troponin I Total Protein Albumin Globulin Albumin/Globulin Ratio Urine Color Yellow Urine Clarity Sl. Cloudy Urine pH 5.0 Ur Specific [place] 1.025 Urine Protein 500 H Urine Glucose (UA) Normal Urine Ketones 5 H Urine Occult Blood 250 H Urine Nitrite Negative Urine Bilirubin Negative Urine Urobilinogen 1 H Ur Leukocyte Esterase 25 H Urine RBC 0 SEEN Urine WBC 0-5 SEEN Ur Squamous Epith Cells 0 SEEN Urine Bacteria 0 SEEN Hyaline Casts 0-5 SEEN Urine Mucus 0 SEEN Urine Opiates Screen Urine Methadone Screen Ur Barbiturates Screen Ur Phencyclidine Scrn Ur Amphetamines Screen U Methamphetamin-MDMA U Benzodiazepines Scrn Urine Cocaine Screen U Cannabinoids Screen Ur Drug Screen Comment Blood Type 05/11/18 05/11/18 05/11/18 12:25 22:20 22:20 WBC 22.2 H RBC 5.58 Hgb 17.9 H Hct 53.3 MCV 95.5 H MCH 32.1 H MCHC 33.6 RDW 12.7 RDW Differential 44.3 H Plt Count 108 L MPV 10.8 Immature Gran % (Auto) 0.700 Neut % (Auto) 75.7 H Lymph % (Auto) 11.7 L [place] % (Auto) 11.7 H Eos % (Auto) 0.1 Baso % (Auto) 0.1 Absolute Neuts (auto) 16.8 H Absolute Lymphs (auto) 2.60 Total Counted Not Reportable Differential Comment SCANNED Specimen Type Sample Site pH Bicarbonate Actual POC Total CO2 Base Excess O2 Saturation ABG pCO2 ABG pO2 Kuldeep Test O2 Delivery Device Liter Flow Blood Gas Notified Whom Blood Gas Notified Time Sodium 141 Potassium 3.4 L Chloride 103 Carbon Dioxide 16.0 L Anion Gap 22 H BUN 9 Creatinine 1.15 Estim Creat Clear Calc 58.68 Est GFR (MDRD) Af Amer 83 Est GFR (MDRD) Non-Af 69 BUN/Creatinine Ratio 7.8 L Glucose 153 H Lactic Acid Calcium 7.2 L Magnesium 1.6 Total Bilirubin 1.80 H AST 109 H ALT 71 H Alkaline Phosphatase 125 H Total Creatine Kinase Troponin I 0.059 H Total Protein 7.7 Albumin 3.4 Globulin 4.3 H Albumin/Globulin Ratio 0.8 L Urine Color Urine Clarity Urine pH Ur Specific [place] Urine Protein Urine Glucose (UA) Urine Ketones Urine Occult Blood Urine Nitrite Urine Bilirubin Urine Urobilinogen Ur Leukocyte Esterase Urine RBC Urine WBC Ur Squamous Epith Cells Urine Bacteria Hyaline Casts Urine Mucus Urine Opiates Screen NEGATIVE Urine Methadone Screen NEGATIVE Ur Barbiturates Screen NEGATIVE Ur Phencyclidine Scrn NEGATIVE Ur Amphetamines Screen NEGATIVE U Methamphetamin-MDMA NEGATIVE U Benzodiazepines Scrn NEGATIVE Urine Cocaine Screen NEGATIVE U Cannabinoids Screen POSITIVE H Ur Drug Screen Comment Blood Type 05/11/18 05/11/18 05/11/18 22:27 22:40 23:28 WBC RBC Hgb Hct MCV MCH MCHC RDW RDW Differential Plt Count MPV Immature Gran % (Auto) Neut % (Auto) Lymph % (Auto) [place] % (Auto) Eos % (Auto) Baso % (Auto) Absolute Neuts (auto) Absolute Lymphs (auto) Total Counted Differential Comment Specimen Type ART ART Sample Site L Radial L Radial pH 7.17 L* 7.34 L Bicarbonate Actual 16.4 L 27.1 H POC Total CO2 18 29 Base Excess -12 L 1 O2 Saturation 99 100 H ABG pCO2 45.1 H 49.9 H ABG pO2 197 H 205 H Kuldeep Test POS POS O2 Delivery Device NRB Mask NRB Mask Liter Flow 15.0 15.0 Blood Gas Notified Whom HOSP HOSP Blood Gas Notified Time 2219 2324 Sodium Potassium Chloride Carbon Dioxide Anion Gap BUN Creatinine Estim Creat Clear Calc Est GFR (MDRD) Af Amer Est GFR (MDRD) Non-Af BUN/Creatinine Ratio Glucose Lactic Acid 8.9 H* Calcium Magnesium Total Bilirubin AST ALT Alkaline Phosphatase Total Creatine Kinase Troponin I Total Protein Albumin Globulin Albumin/Globulin Ratio Urine Color Urine Clarity Urine pH Ur Specific [place] Urine Protein Urine Glucose (UA) Urine Ketones Urine Occult Blood Urine Nitrite Urine Bilirubin Urine Urobilinogen Ur Leukocyte Esterase Urine RBC Urine WBC Ur Squamous Epith Cells Urine Bacteria Hyaline Casts Urine Mucus Urine Opiates Screen Urine Methadone Screen Ur Barbiturates Screen Ur Phencyclidine Scrn Ur Amphetamines Screen U Methamphetamin-MDMA U Benzodiazepines Scrn Urine Cocaine Screen U Cannabinoids Screen Ur Drug Screen Comment Blood Type 05/12/18 05/12/18 05/12/18 03:06 04:45 04:45 WBC 12.3 H RBC 4.39 L Hgb 13.8 Hct 40.9 MCV 93.2 MCH 31.4 MCHC 33.7 RDW 12.6 RDW Differential 41.5 Plt Count 71 L MPV 10.6 Immature Gran % (Auto) 0.400 Neut % (Auto) 74.7 H Lymph % (Auto) 13.2 L [place] % (Auto) 11.4 H Eos % (Auto) 0.1 Baso % (Auto) 0.2 Absolute Neuts (auto) 9.2 H Absolute Lymphs (auto) 1.62 Total Counted Not Reportable Differential Comment Specimen Type Sample Site pH Bicarbonate Actual POC Total CO2 Base Excess O2 Saturation ABG pCO2 ABG pO2 Kuldeep Test O2 Delivery Device Liter Flow Blood Gas Notified Whom Blood Gas Notified Time Sodium 143 Potassium 3.4 L Chloride 106 Carbon Dioxide 30.0 Anion Gap 7 BUN 10 Creatinine 0.67 L Estim Creat Clear Calc 100.72 Est GFR (MDRD) Af Amer 155 Est GFR (MDRD) Non-Af 128 BUN/Creatinine Ratio 15.0 Glucose 113 H Lactic Acid 1.5 Calcium 6.5 L* Magnesium Total Bilirubin AST ALT Alkaline Phosphatase Total Creatine Kinase 2957 H Troponin I Total Protein Albumin Globulin Albumin/Globulin Ratio Urine Color Urine Clarity Urine pH Ur Specific [place] Urine Protein Urine Glucose (UA) Urine Ketones Urine Occult Blood Urine Nitrite Urine Bilirubin Urine Urobilinogen Ur Leukocyte Esterase Urine RBC Urine WBC Ur Squamous Epith Cells Urine Bacteria Hyaline Casts Urine Mucus Urine Opiates Screen Urine Methadone Screen Ur Barbiturates Screen Ur Phencyclidine Scrn Ur Amphetamines Screen U Methamphetamin-MDMA U Benzodiazepines Scrn Urine Cocaine Screen U Cannabinoids Screen Ur Drug Screen Comment Blood Type 05/12/18 05/12/18 08:35 08:35 WBC RBC Hgb Hct MCV MCH MCHC RDW RDW Differential Plt Count MPV Immature Gran % (Auto) Neut % (Auto) Lymph % (Auto) [place] % (Auto) Eos % (Auto) Baso % (Auto) Absolute Neuts (auto) Absolute Lymphs (auto) Total Counted Differential Comment Specimen Type Sample Site pH Bicarbonate Actual POC Total CO2 Base Excess O2 Saturation ABG pCO2 ABG pO2 Kuldeep Test O2 Delivery Device Liter Flow Blood Gas Notified Whom Blood Gas Notified Time Sodium Potassium Chloride Carbon Dioxide Anion Gap BUN Creatinine Estim Creat Clear Calc Est GFR (MDRD) Af Amer Est GFR (MDRD) Non-Af BUN/Creatinine Ratio Glucose Lactic Acid Calcium Magnesium Total Bilirubin AST ALT Alkaline Phosphatase Total Creatine Kinase Troponin I Total Protein Albumin Globulin Albumin/Globulin Ratio Urine Color Urine Clarity Urine pH Ur Specific [place] Urine Protein Urine Glucose (UA) Urine Ketones Urine Occult Blood Urine Nitrite Urine Bilirubin Urine Urobilinogen Ur Leukocyte Esterase Urine RBC Urine WBC Ur Squamous Epith Cells Urine Bacteria Hyaline Casts Urine Mucus Urine Opiates Screen Urine Methadone Screen Ur Barbiturates Screen Ur Phencyclidine Scrn Ur Amphetamines Screen U Methamphetamin-MDMA U Benzodiazepines Scrn Urine Cocaine Screen U Cannabinoids Screen Ur Drug Screen Comment Blood Type Cancelled A POSITIVE POC Glucose 05/11/18 22:12 POC Glucose 161 H Assessment/Plan All Active Problems Fall (Acute) Rhabdomyolysis (Acute) Assessment: 1. Right hip comminuted intertrochanteric fracture secondary to mechanical fall 2. Right hip osteoarthritis 3. Chronic low back pain and cervical neck pain 4. Hypertension 5. Thrombocytopenia 6. New onset seizure Plan: I did discuss case with Dr. Rios Cunha. At this time it is recommended for patient to undergo a right hip nail secondary to his intertrochanteric fracture. Case was also discussed with the hospitalist in which they are obtain an echo prior to surgery. Patient is also getting platelets prior to surgery. I did discuss review with the patient all treatment options including surgical versus nonsurgical. Patient wishes to proceed with right hip nail. Potential risks, benefits, and complications of this procedure were discussed in detail including but not limited to , infection, nerve and blood vessel damage, persistent pain, numbness, tingling, paresthesias, blood clot, pulmonary embolism, and requirement for further surgery. The patient expressed full understanding has no further questions for the doctor. Patient does agree to proceed with the above-stated procedure and has signed the surgery consent form. Patient will remain n.p.o. for anticipated surgery this afternoon once clearance has been obtained by medicine.
--- NOTE | 2018-05-12 10:16 | NURSING ---
medicated with lisinopril for blood pressure see MAR
--- NOTE | 2018-05-12 11:45 | CASEMGMT ---
LACI ACKERMAN ASSESSMENT Face to Face with patient for initial transition planning/care coordination assessment. LACI ACKERMAN introduced self and role at [facility]. Pt voices understanding and consents to assessment at this time. Pt resting in bed in no distress at this time. Pt is A/O at this time and answers all questions appropriately. Care providers, pharmacy, and demographics verified/updated at this time. PCP: Dr Cisneros Preferred Pharmacy: [facility] Insurance: [facility] Prescription Benefit: [employer] Living Will/HPOA: States does not have LW or HCPOA . Interested in more information and states would like to talk with SW at this time to complete paperwork. Pt states, I would like for Jacky Isaac to be the one to do that. I trust him. Left message on JOYCELYN, Joann's, voicemail. LNOK: States he has 3 children, but states that they don't talk to him and are not involved in his life. States he has close friends, Jacky and Cristine Isaac, that help him and a good friend, Pati. Living Arrangements: Lives alone in an apartment. States prior to his fall that he was independent with all personal ADL's and home mgmt tasks. 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 States he usually calls a taxi. DME: has a hand-held shower and a cane but that he doesn't use it. Pt states he does not know what kind of medical equipment he may need when he returns home. HHC/SNF: States he has never been to a SNF or used HHC services. States after his surgery that he is aware he is going to need more help than his friends are able to provide. Agreeable to going to a SNF. States has no preference of facility. JOYCELYN Mackay, also notified of SNF referral. Pt states he does not have any financial concerns at this time. CM to follow for any further discharge planning/needs. Pt voices no further concerns/needs at this time. Advised pt to ask for CM if any further questions/concerns/needs arise. Voices understanding. Plan: SNF. Anthony PATEL RN, CM
--- NOTE | 2018-05-12 13:08 | CASEMGMT ---
Social Work: Referral from RN MEKA for AD and to discuss possible SNF at D/C. Met with patient in room. Patient states that he would like to complete DPOAHC documents but has not discussed this with the individual that he would like to be POA. This home health care social worker explained that he would need to discuss this first and get individuals permission to be able to appoint him as POA. Patient verbalizes understanding and states he will discuss this with the potential POA. Discussed patient's plan for D/C. Patient states I think I will need to go somewhere for therapy before I can go home. Patient asking to go to TCU post D/C. This home health care social worker explained that a referral would need to be made. Patient verbalizes understanding. Social work to follow to assist with D/C planning and possible completion of AD documents. PLAN: Patient will be discharged to skilled level of care at D/C. LASHAUN Tobar
--- NOTE | 2018-05-12 14:19 | PCM.CONS.GEN ---
Problem List (1) Seizure Status: Acute Reason for Consult Date of Consultation: 05/12/18 Reason for Consultation: Seizure History of Present Illness: The patient is a 62 year old CM with PMH cervical/lumbar spondylosis, psoriasis, marijuana abuse, ? ETOH abuse admitted s/p mechanical fall, found to have acute, comminuted right intertrochanteric fracture. Patient is very [place] D[place]'. History is obtained from medical records and patient. Neurology consulted for seizure. Per documentation yesterday (05/11/18) BRANCH ASSISTANT was called as patient had witnessed GTCs, followed by agitation and confusion, no tongue bite or urinary incontinence documented, per documentation patient had 2 seizures, was given Ativan. Patient was unaware of the event. Per patient he never had seizures. Lives in an assisted living probably, uses cane occasionally, denies any frequent falls, does not have a car to drive. Denies any BROWN, dizziness, focal motor weakness or sensory loss, denies any visual disturbances or speech disturbances. Labs: WBC-22.2, Plt-108, Cr-1.15, K-3.4, Na-141, AST/ALT-71/120, LA-8.9, UA-LE-25, WBC-0-5, UDS +ve for cannabinoids. Total CK-2957. CT head reported not to show anything acute. 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) Allergies Unable to Assess Allergy (Verified 05/11/18 10:59) Home Medications: Ambulatory Orders Medication Instructions Recorded Lisinopril/Hctz 1 tab PO DAILY 05/11/18 Omeprazole 20 mg PO BID 05/11/18 Lives: Alone Smoking Status: Current every day smoker Alcohol: Occasional Drugs: Marijuana - *Family History Maternal History Items: No pertinent history Review of Systems Constitutional: Reports: - - complete ROS negative except as documented in HPI Patient Problems: Active and Suspected Problems Fall (Acute) Rhabdomyolysis (Acute) Seizure (Acute) - Physical Exam General: Alert HEENT: Normocephalic Neck: Supple Lungs: Normal air movement Cardiovascular: Normal S1, Normal S2 Abdomen: Bowel Sounds Present Extremities: No cyanosis Neurological: - - consious, alert, AoAx3, CN 2-12 grossly intact, power 5/5 both UE, 5/5 left LE, moves right LE, s/p right acute communited, intertrochentratic fracture, denies any sensory loss, no cerebellar signs, Reflexes + B/L B/S/T/K/A, gait deferred Psych/Mental Status: Normal Affect Vital Signs Temp Pulse Resp BP Pulse Ox 99.5 F H 94 17 146/69 H 97 05/12/18 12:54 05/12/18 14:00 05/12/18 14:00 05/12/18 14:00 05/12/18 14:00 Oxygen Flow Rate (L/min) 2 Oxygen Delivery Method Nasal Cannula Weight: 76.9 kg Body Mass Index (BMI) 28.2 Intake and Output for Last 24 Hours 05/10/18 05/11/18 05/12/18 23:59 23:59 23:59 Intake Total 597 / 597 2470 / 2470 Output Total 850 / 850 600 / 600 Balance -253 / -253 1870 / 1870 Laboratory Tests Past 24 Hrs 05/11/18 05/11/18 05/11/18 12:25 22:20 22:20 WBC 22.2 H RBC 5.58 Hgb 17.9 H Hct 53.3 MCV 95.5 H MCH 32.1 H MCHC 33.6 RDW 12.7 RDW Differential 44.3 H Plt Count 108 L MPV 10.8 Immature Gran % (Auto) 0.700 Neut % (Auto) 75.7 H Lymph % (Auto) 11.7 L Boyle % (Auto) 11.7 H Eos % (Auto) 0.1 Baso % (Auto) 0.1 Absolute Neuts (auto) 16.8 H Absolute Lymphs (auto) 2.60 Total Counted Not Reportable Differential Comment SCANNED Specimen Type Sample Site pH Bicarbonate Actual POC Total CO2 Base Excess O2 Saturation ABG pCO2 ABG pO2 Kuldeep Test O2 Delivery Device Liter Flow Blood Gas Notified Whom Blood Gas Notified Time Sodium 141 Potassium 3.4 L Chloride 103 Carbon Dioxide 16.0 L Anion Gap 22 H BUN 9 Creatinine 1.15 Estim Creat Clear Calc 58.68 Est GFR (MDRD) Af Amer 83 Est GFR (MDRD) Non-Af 69 BUN/Creatinine Ratio 7.8 L Glucose 153 H Lactic Acid Calcium 7.2 L Magnesium 1.6 Total Bilirubin 1.80 H AST 109 H ALT 71 H Alkaline Phosphatase 125 H Total Creatine Kinase Troponin I 0.059 H Total Protein 7.7 Albumin 3.4 Globulin 4.3 H Albumin/Globulin Ratio 0.8 L Urine Opiates Screen NEGATIVE Urine Methadone Screen NEGATIVE Ur Barbiturates Screen NEGATIVE Ur Phencyclidine Scrn NEGATIVE Ur Amphetamines Screen NEGATIVE U Methamphetamin-MDMA NEGATIVE U Benzodiazepines Scrn NEGATIVE Urine Cocaine Screen NEGATIVE U Cannabinoids Screen POSITIVE H Ur Drug Screen Comment Blood Type 05/11/18 05/11/18 05/11/18 22:27 22:40 23:28 WBC RBC Hgb Hct MCV MCH MCHC RDW RDW Differential Plt Count MPV Immature Gran % (Auto) Neut % (Auto) Lymph % (Auto) Boyle % (Auto) Eos % (Auto) Baso % (Auto) Absolute Neuts (auto) Absolute Lymphs (auto) Total Counted Differential Comment Specimen Type ART ART Sample Site L Radial L Radial pH 7.17 L* 7.34 L Bicarbonate Actual 16.4 L 27.1 H POC Total CO2 18 29 Base Excess -12 L 1 O2 Saturation 99 100 H ABG pCO2 45.1 H 49.9 H ABG pO2 197 H 205 H Kuldeep Test POS POS O2 Delivery Device NRB Mask NRB Mask Liter Flow 15.0 15.0 Blood Gas Notified Whom HOSP HOSP Blood Gas Notified Time 2220 2325 Sodium Potassium Chloride Carbon Dioxide Anion Gap BUN Creatinine Estim Creat Clear Calc Est GFR (MDRD) Af Amer Est GFR (MDRD) Non-Af BUN/Creatinine Ratio Glucose Lactic Acid 8.9 H* Calcium Magnesium Total Bilirubin AST ALT Alkaline Phosphatase Total Creatine Kinase Troponin I Total Protein Albumin Globulin Albumin/Globulin Ratio Urine Opiates Screen Urine Methadone Screen Ur Barbiturates Screen Ur Phencyclidine Scrn Ur Amphetamines Screen U Methamphetamin-MDMA U Benzodiazepines Scrn Urine Cocaine Screen U Cannabinoids Screen Ur Drug Screen Comment Blood Type 05/12/18 05/12/18 05/12/18 03:06 04:45 04:45 WBC 12.3 H RBC 4.39 L Hgb 13.8 Hct 40.9 MCV 93.2 MCH 31.4 MCHC 33.7 RDW 12.6 RDW Differential 41.5 Plt Count 71 L MPV 10.6 Immature Gran % (Auto) 0.400 Neut % (Auto) 74.7 H Lymph % (Auto) 13.2 L Boyle % (Auto) 11.4 H Eos % (Auto) 0.1 Baso % (Auto) 0.2 Absolute Neuts (auto) 9.2 H Absolute Lymphs (auto) 1.62 Total Counted Not Reportable Differential Comment Specimen Type Sample Site pH Bicarbonate Actual POC Total CO2 Base Excess O2 Saturation ABG pCO2 ABG pO2 Kuldeep Test O2 Delivery Device Liter Flow Blood Gas Notified Whom Blood Gas Notified Time Sodium 143 Potassium 3.4 L Chloride 106 Carbon Dioxide 30.0 Anion Gap 7 BUN 10 Creatinine 0.67 L Estim Creat Clear Calc 100.72 Est GFR (MDRD) Af Amer 155 Est GFR (MDRD) Non-Af 128 BUN/Creatinine Ratio 15.0 Glucose 113 H Lactic Acid 1.5 Calcium 6.5 L* Magnesium Total Bilirubin AST ALT Alkaline Phosphatase Total Creatine Kinase 2957 H Troponin I Total Protein Albumin Globulin Albumin/Globulin Ratio Urine Opiates Screen Urine Methadone Screen Ur Barbiturates Screen Ur Phencyclidine Scrn Ur Amphetamines Screen U Methamphetamin-MDMA U Benzodiazepines Scrn Urine Cocaine Screen U Cannabinoids Screen Ur Drug Screen Comment Blood Type 05/12/18 05/12/18 08:35 08:35 WBC RBC Hgb Hct MCV MCH MCHC RDW RDW Differential Plt Count MPV Immature Gran % (Auto) Neut % (Auto) Lymph % (Auto) Boyle % (Auto) Eos % (Auto) Baso % (Auto) Absolute Neuts (auto) Absolute Lymphs (auto) Total Counted Differential Comment Specimen Type Sample Site pH Bicarbonate Actual POC Total CO2 Base Excess O2 Saturation ABG pCO2 ABG pO2 Kuldeep Test O2 Delivery Device Liter Flow Blood Gas Notified Whom Blood Gas Notified Time Sodium Potassium Chloride Carbon Dioxide Anion Gap BUN Creatinine Estim Creat Clear Calc Est GFR (MDRD) Af Amer Est GFR (MDRD) Non-Af BUN/Creatinine Ratio Glucose Lactic Acid Calcium Magnesium Total Bilirubin AST ALT Alkaline Phosphatase Total Creatine Kinase Troponin I Total Protein Albumin Globulin Albumin/Globulin Ratio Urine Opiates Screen Urine Methadone Screen Ur Barbiturates Screen Ur Phencyclidine Scrn Ur Amphetamines Screen U Methamphetamin-MDMA U Benzodiazepines Scrn Urine Cocaine Screen U Cannabinoids Screen Ur Drug Screen Comment Blood Type Cancelled A POSITIVE POC Glucose 05/11/18 22:12 POC Glucose 161 H Assessment/Plan All Active Problems Fall (Acute) Rhabdomyolysis (Acute) Seizure (Acute) The patient is a 62 year old CM with PMH cervical/lumbar spondylosis, psoriasis, marijuana abuse, ? ETOH abuse admitted s/p mechanical fall, found to have acute, comminuted right intertrochanteric fracture. Patient is very [place] History is obtained from medical records and patient. Neurology consulted for seizure. Per documentation yesterday (05/11/18) BRANCH ASSISTANT was called as patient had witnessed GTCs, followed by agitation and confusion, no tongue bite or urinary incontinence documented, per documentation patient had 2 seizures, was given Ativan. Patient was unaware of the event. Per patient he never had seizures. Lives in an assisted living probably, uses cane occasionally, denies any frequent falls, does not have a car to drive. Denies any BROWN, dizziness, focal motor weakness or sensory loss, denies any visual disturbances or speech disturbances. Labs: WBC-22.2, Plt-108, Cr-1.15, K-3.4, Na-141, AST/ALT-71/120, LA-8.9, UA-LE-25, WBC-0-5, UDS +ve for cannabinoids. Total CK-2957. CT head reported not to show anything acute. Impression Seizures Plan -Keppra 500 mg IV BID. S/E discussed in detail. AED since patient had 2 seizures per documentation -Correction of underlying metabolic abnormalities per hospitalist/ICU team -Check MRI brain w/o contrast -Check EEG -Patient scheduled for surgery at present for right hip fracture. Per documentation patient is getting platelet transfusion prior to surgery -Patient counseled not to drive for 6 months -Seizure precautions discussed in detail -PT/OT -Fall precautions -Patient counseled to stop ETOH abuse, and marijuana -Follow up with Neurology as outpatient in 6 weeks -Please call with questions if any -Thank you for allowing us to participate in patient's care and management. Code Visit Inpatient E&M: 26854 Init Hosp L3
[2018-05-12] MEDS: levETIRAcetam IV 100 ML 400 MG IV ×2 (14:31→22:13)
--- NOTE | 2018-05-12 16:02 | NURSING ---
1515 OR nurses at bedside to take patient down to OR bedside report given
--- NOTE | 2018-05-12 16:38 | OP.PCM_ITS ---
Report of Operation Date of Procedure: 05/12/18 Pre-Operative Diagnosis: Right hip intertrochanteric fracture Post-Operative Diagnosis: Right hip intertrochanteric fracture Surgery/Procedure Performed:: Right hip cephalo-medullary nail Description of Surgical Findings:: Stable reduction printed circuit board designer: None Type of Anesthesia:: General Anesthesiologist: Parish Cabral Special Medications: 2 g Ancef Estimated Blood Loss (mL): 200 mL Fluids Replaced: 700 mL crystalloid Description of Procedure: Components used: 1. [employer] InterTAN nail 38 cm, 10mm 2. [employer] InterTAN lag screw 100mm 3. [employer] 45 millimeter interlocking screw Brief history operative indications: 62-year-old male who sustained an intertrochanteric hip fracture. After extensive discussion including risk and benefits which include but are not limited to blood loss, PEs, DVTs, neurovascular damage, nonunions, malunions and screw cut out patient has elected to proceed with a right cephalo-medullary nail. Procedure: On the date of the procedure the patient's R hip was marked in the preoperative area and patient was taken back to the operating room. Anesthetic was administered and patient was transferred to the table were all bony prominence identified well-padded and the ipsilateral arm was placed across the chest. Patient was then translated down to the perineal post and the operative leg was placed in the boot while the nonoperative leg was lowered and secured. The operative leg was placed in traction and internal rotation and live fluoroscopy was used to verify adequate reduction. The operative leg was then prepped in a sterile fashion with chlorhexidine while the surgeon scrubbed. Upon reentering the room the operative extremity was draped in the standard orthopedic fashion. Skin incision was marked and a timeout was called. Everyone agreed upon the side, the site, the procedure be performed, patient's identity, and antibiotics given. Skin incision was made and the position of the entry guidepin was verified using live fluoroscopy. Once we were satisfied with our position the pin was advanced in the soft tissue protector was placed over the pin. The entry reamer was then advanced into the proximal portion of the femur. A guidewire was placed down the intramedullary canal and fluoroscopy was used to verify that the anterior cortex had not been breached distally as well as satisfactory distal positioning. We then used live fluoroscopy to verify the length of the nail and a [employer] InterTAN 125 by 10 mm 38 cm hip nail was selected. Canal was sequentially reamed to 11.5 mm. The nail was then attached to the stonecutter apprentice hand and inserted into the intramedullary canal. The appropriate depth was verified and the skin incision for the lag screw was made. The lag screw guidepin was then placed under live fluoroscopy and when a satisfactory position was obtained the length of the screw was measured and the standard technique to drill for the lag screws was performed. The anti-rotation bar was used. At this time a 100 lag screw was selected with its corresponding compression screw. The lag screw was then passed and traction was left off the leg. The compression screw was then passed and the fracture was compressed. The final position of the lag screw was verified under fluoroscopy. Attention was then turned to the distal portion of the nail and a perfect shoshone-bannock technique was used to locate the distal interlocking screw and a 45mm distal interlocking screw was placed using this technique. Live fluoroscopy was used to verify the position of the interlocking screw and the final position of the hip components. Once we were satisfied with our positioning the wounds were copiously irrigated out with normal saline skin was closed with 2-0 Vicryl and janae for final skin closure. A sterile dressing was placed with Xeroform. Patient was then awakened by anesthesia transferred from the fracture table back to their hospital bed and transferred to the PACU for recovery. Postoperative plan: Patient will be weight-bear as tolerated. Patient has low platelets, DVT prophylaxis will be per primary service as medically indicated. Follow up in the office in 2 weeks. Grafts/Implants Used: [employer]hew 125 degree InterTAN nail 38 cm x 10 mm - Complications None - Admit VTE Documentation VTE Present on Admission: No VTE Mechan Device Prophylaxis: SCD's VTE Pharm Prophylaxis ordered?: Yes
--- NOTE | 2018-05-12 16:39 | RAD_ITS ---
STUDY: X-RAY - RIGHT HIP REASON FOR EXAM: Male, 62 years old. Postop TECHNIQUE: 4 views of the hip. COMPARISON: Prior intraoperative study of this date FINDINGS: There is demonstrated evidence of open reduction and internal fixation of previously noted intertrochanteric fracture, with major fracture fragments appearing in good alignment. There is a long stem interfemoral sue. There are degenerative changes of both hips. Generalized osteopenia is present. RAD/Hip Min 2 Views (Portable) IMPRESSION: Status post ORIF changes of the right hip with fracture fragments appearing in good alignment. There are degenerative changes of both hips. Electronically Signed: Leandro Sullivan MD at 19:59 EST , Service support ,
[2018-05-12] MEDS: Ipratropium/Albuterol Sulfate 3 ML AMPUL.NEB INHALATION (17:06)
[2018-05-12] MEDS: Zolpidem Tartrate 5 MG Tablet PO (22:43)
[2018-05-12] MEDS: oxyCODONE 5 MG Tablet 10 MG PO (22:43)
[2018-05-12] MEDS: Cefazolin 1 GM/50 ML BAG IV (22:44)
[2018-05-13] VITALS (9 sets, daily range): BP systolic 111–155; BP diastolic 58–87; PULSE 79–102; RESP 16–18; TEMP 36.6–37.4; O2SAT 95–99
[2018-05-13] MEDS: 0.9% Normal Saline 1,000 ML 150 ML IV ×2 (00:45→09:55)
[2018-05-13] MEDS: 0.9% NaCl Peripheral Flush Adult/Peds IV (00:46)
--- NOTE | 2018-05-13 06:26 | PCM.PN.ORT ---
Patient Problems: Active and Suspected Problems Fall (Acute) Rhabdomyolysis (Acute) Seizure (Acute) Subjective: The patient was sitting in bedside chair upon examination. Patient denies any chest pain, shortness of breath, dizziness, lightheadedness, nausea or vomiting, or calf pain. Pain is controlled on medications. No adverse overnight events. Nursing states patient has had some postoperative confusion and has taken ice on 3 different occasions and dumped off the bed. Patient also required 3 person assist getting up bedside. Patient also has had neurology consult due to new onset seizures. Objective: Vital signs stable and afebrile. Currently requiring 3 L nasal O2 Patient is able to plantarflex and dorsiflex actively. Sensation is intact to light touch to saphenous, sural, superficial and deep peroneal, and tibial distribution. Dressing is clean dry and intact. Negative Homans bilaterally, negative signs and symptoms of DVT. - Physical Exam Vital Signs Temp Pulse Resp BP Pulse Ox 97.9 F 92 16 111/63 99 05/13/18 06:25 05/13/18 06:25 05/13/18 06:25 05/13/18 06:25 05/13/18 06:25 Oxygen Flow Rate (L/min) 3 Oxygen Delivery Method Nasal Cannula Weight: 76 kg Body Mass Index (BMI) 28.2 Intake and Output for Last 24 Hours 05/11/18 05/12/18 05/13/18 23:59 23:59 23:59 Intake Total 597 / 597 4895 / 4895 2789 / 2789 Output Total 850 / 850 900 / 900 600 / 600 Balance -253 / -253 3995 / 3995 2189 / 2189 Laboratory Tests Past 24 Hrs 05/12/18 05/12/18 08:35 08:35 Blood Type Cancelled A POSITIVE Medical Necessity - Tobacco Use Smoking Status: Current every day smoker Assessment/Plan All Active Problems Fall (Acute) Rhabdomyolysis (Acute) Seizure (Acute) 1. S/P right hip cephalo-medullary nail POD #1 2. Continue Pain Medications: Tylenol and OxyIR 3. DVT Prophylaxis: Defer to primary service, currently on Lovenox 4. PT/OT: Weightbearing as tolerated, patient required 3 person assist getting up bedside. 5. H & H: Labs have not been drawn this morning at this point, asymptomatic 6. Encouraged Incentive Spirometry 7. Continue postoperative medical management per medicine 8. Chronic low back pain cervical neck pain 9. Thrombocytopenia 10. New onset seizure: Neurology has been consulted
[2018-05-13] MEDS: Cefazolin 1 GM/50 ML BAG IV (06:29)
[2018-05-13 07:23] LABS: ALB/GLOB Ratio 0.8 RATIO (0.9-2.4); AST(SGOT) 92 U/L (15-37); Alanine Aminotransfer ALT/SGPT 40 U/L (16-61); Albumin, Serum 2.1 g/dL (3.2-5.0); Alkaline Phosphatase 65 U/L (45-117); Anion Gap 9 (5-15); BUN 13 mg/dL (7-18); BUN/Creat Ratio 20.2 RATIO (10-20); CPK Total, Creatine Kinase 2013 U/L (39-308); Calcium,Total 6.4 mg/dL (8.5-10.1); Chloride 108 mmol/L (98-107); Creatinine, Serum 0.64 mg/dL (0.70-1.30); EST Glomerular Filtration Rate 134 mL/min (>60); Est Glom Filt Rate - Afr Amer 162 mL/min (>60); Estimated Creatinine Clearance 101.49 ml/min; Globulin 2.6 g/dL (2.2-4.2); Glucose 90 mg/dL (74-106); Potassium 3.7 mmol/L (3.5-5.1); Protein, Total 4.7 g/dL (6.4-8.2); Sodium Level 142 mmol/L (136-145)
--- NOTE | 2018-05-13 08:08 | NURSING ---
Ez AGUERO given message from Leonardo in Pharmacy that Dr. Lawton needs to change his calcium order.
--- NOTE | 2018-05-13 08:30 | MRI_ITS ---
STUDY: MRI BRAIN WITHOUT CONTRAST REASON FOR EXAM: Male, 62 years old. New onset of seizure. Unwitnessed fall. Confusion. TECHNIQUE: Standardized multiplanar fat and water weighted pulse sequences were obtained. Patient is unable to cooperate. Fast scan protocol was used. COMPARISON: CT head without contrast 05/11/2018. FINDINGS: No restricted diffusion to suspect acute or subacute ischemic infarct. T2 FLAIR hyperintensity foci in both medial parietal and occipital lobes. There are nearly symmetrical. Posterior periventricular white matter T2 FLAIR hyperintensity foci. No mass effects. No midline shift. Normal bilateral basal ganglia. Normal thalami. There is no extra-axial fluid accumulation. Normal flow voids within the major intracranial circulation suggesting patency by spin echo criteria. Normal sella turcica, pituitary gland, infundibular stalk, optic chiasm and hypothalamus. Normal tectal plate and pineal gland. Normal midbrain, regino and medulla. Normal cerebellum. Normal basal cisterns. Normal bilateral temporal bones. Normal bilateral internal auditory canals. No demonstrated orbital abnormality, within the constraints of a routine brain study. Normal visualized paranasal sinuses. Normal calvarium and skull base. Normal visualized soft tissue structures. Normal visualized upper cervical spine. MRI/Brain without Contrast IMPRESSION: 1. Nearly symmetrical T2 FLAIR hyperintensity foci in both medial occipital lobes more than the parietal lobes and the posterior periventricular subcortical white matter. 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 2. No MRI evidence of acute or subacute ischemic infarct. Electronically Signed: Fidel Andrews MD at 13:30 EST , Service support ,
[2018-05-13] MEDS: Enoxaparin 40 MG/0.4 ML Syringe SC (09:57)
[2018-05-13] MEDS: Senna/Docusate Sodium 1 Tablet 2 TABLET PO ×2 (09:58→22:15)
[2018-05-13] MEDS: Lisinopril 10 MG Tablet PO (09:59)
[2018-05-13] MEDS: oxyCODONE CR 15 MG Tablet PO ×2 (10:08→22:15)
[2018-05-13] MEDS: Polyethylene Glycol 3350 17 GM PACKET PO (10:08)
[2018-05-13] MEDS: levETIRAcetam IV 100 ML 400 MG IV ×2 (10:33→22:15)
--- NOTE | 2018-05-13 11:04 | CASEMGMT ---
Social Work Note JOYCELYN spoke with PT who states pt is a good candidate for [facility]. JOYCELYN placed a call to Sherine with [facility]. Per Sherine she is able to accept pt. JOYCELYN informed physician. Per Physician pt may be ready for discharge over the weekend. JOYCELYN updated Sherine with [facility] of this. JOYCELYN met with pt. JOYCELYN introduced self and role at [facility]. Pt is alert and orientated. Pt is agreeable to [facility] at discharge. Green sheet on chart. Plan: [facility] once medically cleared Estefania Mello MSW, ENVIRONMENTAL PROJECT MANAGER
[2018-05-13] MEDS: LORazepam 2 MG/ML Syringe 1 MG IV (12:03)
--- NOTE | 2018-05-13 12:21 | EEG ---
- Electroencephalogram Date of service 05/13/2018 History EEG is being done in this 62 yr M to rule out seizures EEG Description: This is an 18 channel EEG with 10-20 lead placement system. Bipolar montages, Referential and Circumferential montages were reviewed. Photic stimulation was performed but hyperventilation was not performed. The posterior dominant rhythm is 9 HZ synchronous, symmetric, reacting to eye opening and closing. Photo stimulation elicited normal driving response but no abnormal photoparoxysmal response, Hyperventilation was not performed. Drowsiness was identified. There is no abnormal background slowing noted. EKG artefact noted during the record. External and muscle artefact noted during the record. There was no epileptiform discharges or electrographic seizures noted during this recording. EEG Interpretation This is a normal awake and drowsy EEG. There is no epileptiform discharges or electrographic seizures noted during the record.
--- NOTE | 2018-05-13 14:36 | PCM.PN.HOSP ---
Patient Problems: Active and Suspected Problems Fall (Acute) Rhabdomyolysis (Acute) Seizure (Acute) Subjective: Patient is sitting in the chair. Postop day 1 from right hip cephalo-medullary nail for right hip intertrochanteric fracture. CKs is still elevated. Patient has mild tremors. Last BM 05/10. Patient had low-grade fever 99.9 Fahrenheit, heart rate 102 yesterday evening and night but afebrile in the morning. Vitals/I&O's: Vital Signs Temp Pulse Resp BP Pulse Ox 97.9 F 102 H 18 119/58 L 96 05/13/18 10:25 05/13/18 10:25 05/13/18 10:25 05/13/18 10:25 05/13/18 10:25 Oxygen Flow Rate (L/min) 2 Oxygen Delivery Method Nasal Cannula Weight: 167 lb 8.821 oz Body Mass Index (BMI) 28.2 Intake and Output for Last 24 Hours 05/11/18 05/12/18 05/13/18 23:59 23:59 23:59 Intake Total 597 / 597 4895 / 4895 3689 / 3689 Output Total 850 / 850 900 / 900 1050 / 1050 Balance -253 / -253 3995 / 3995 2639 / 2639 General: Alert, Oriented x3, Cooperative HEENT: Atraumatic, PERRLA, EOMI, Normocephalic Neck: Supple, No JVD, Negative Carotid Bruits Lungs: Clear to auscultation, Diminished - Air entry diminished in bilateral lung bases Cardiovascular: Regular rate, Normal S1, Normal S2, No murmurs Abdomen: Bowel Sounds Present, Soft, Non Tender Extremities: No edema, Capillary Refill Less than 3 Seconds Skin: No rashes, No breakdown Musculoskeletal: Arthritic Changes, Muscle Wasting, - - Right hip cupola medullary nailing. Dressing is dry. Right hip slightly tender postoperative. Neurological: Cranial nerves II-XII grossly intact, Neuro grossly intact Psych/Mental Status: Normal Affect, Appropriate Laboratory Results 05/13/18 06:26: Sodium 142, Potassium 3.7, Chloride 108 H, Carbon Dioxide 25.0, Anion Gap 9, BUN 13, Creatinine 0.64 L, Estim Creat Clear Calc 101.49, Est GFR (MDRD) Af Amer 162, Est GFR (MDRD) Non-Af 134, BUN/Creatinine Ratio 20.2 H, Glucose 90, Calcium 6.4 L*, Total Bilirubin 1.30 H, AST 92 H, ALT 40, Alkaline Phosphatase 65, Total Creatine Kinase 2013 H, Total Protein 4.7 L, Albumin 2.1 L, Globulin 2.6, Albumin/Globulin Ratio 0.8 L Current Medications Acetaminophen (Tylenol) 650 mg PO Q6H PRN PRN PRN Reason: Mild Pain (scale 0-3)/T>100.7 Al Hydroxide/Mg Hydroxide (Mylanta Ii) 30 ml PO Q6H PRN PRN PRN Reason: Gastric burning Bisacodyl (Dulcolax) 10 mg RECTAL DAILY PRN PRN PRN Reason: Constipation Cyclobenzaprine HCl (Flexeril) 10 mg PO TID [facility] Last Admin: 05/13/18 06:27 Dose: 10 mg Emollient Ointment (Eucerin Intensive Repair) 1 applic TOPICAL 4X/DAY PRN PRN; Protocol PRN Reason: DRY SKIN Enoxaparin Sodium (Lovenox) 40 mg SC DAILY@1000 [facility] Last Admin: 05/13/18 09:57 Dose: 40 mg Hydralazine HCl (Apresoline Iv) 10 mg IV Q6H PRN PRN PRN Reason: High Blood Pressure Sodium Chloride () 1,000 mls @ 150 mls/hr IV .Q6H40M [facility] Last Admin: 05/13/18 09:55 Dose: 150 mls/hr Sodium Chloride () 250 mls @ 15 mls/hr IV .[id number] PRN PRN Reason: SALINE FLUSH Last Admin: 05/12/18 12:52 Dose: 15 mls/hr Levetiracetam (Keppra Iv) 100 mls @ 400 mls/hr IV Q12 [facility] Last Admin: 05/13/18 10:33 Dose: 400 mls/hr Lisinopril (Zestril) 10 mg PO DAILY [facility] Last Admin: 05/13/18 09:59 Dose: 10 mg Morphine Sulfate () 2 - 4 mg IV Q3H PRN PRN PRN Reason: Severe Pain (pain scale 6-10) Ondansetron HCl (Zofran) 4 mg IV Q8H PRN PRN PRN Reason: NAUSEA Last Admin: 05/11/18 15:01 Dose: 4 mg Oxycodone HCl (Oxycontin) 15 mg PO BID [facility] Last Admin: 05/13/18 10:08 Dose: 15 mg Oxycodone HCl (Oxyir) 10 mg PO Q4H PRN PRN PRN Reason: Moderate Pain (pain scale 4-5) Last Admin: 05/12/18 22:43 Dose: 10 mg Polyethylene Glycol (Miralax) 17 gm PO DAILY [facility] Last Admin: 05/13/18 10:08 Dose: 17 gm Potassium [facility] ([facility]) [facility] Last Admin: 05/13/18 09:56 Dose: 40 meq Promethazine HCl (Phenergan) 12.5 mg IV Q6H PRN PRN PRN Reason: NAUSEA/VOMITING Senna/Docusate Sodium (Senokot-S, Marcie-Colace) 2 tablet PO BID [facility] Last Admin: 05/13/18 09:58 Dose: 2 tablet Sodium Chloride () 5 - 15 ml IV UD PRN PRN Reason: SALINE FLUSH Last Admin: 05/13/18 00:46 Dose: 10 ml Zolpidem Tartrate (Ambien (Generic)) 5 mg PO QHS PRN PRN PRN Reason: INSOMNIA Last Admin: 05/12/18 22:43 Dose: 5 mg Medical Necessity - Tobacco Use Smoking Status: Current every day smoker Assessment/Plan All Active Problems Fall (Acute) Rhabdomyolysis (Acute) Seizure (Acute) The patient is a 62 year old M with significant history of lumbosacral spondylosis and cervical spondylosis with chronic neck and back pain, sciatica in nature came to ER after he fell down yesterday. He fell down because his right hip twisted as he was walking on the level ground. He could not stand up or move around and was laying down for 12 hours. Patient denies loss of consciousness or hitting the head. Before fall, he was not using cane or walker but he used cane in the past for some time. Patient is not able to roll over or sit up because of severe pain. He further states he has chronic back pain and neck pain for more than 20 years with history of 5 times back injuries. He denies back surgery. His neck is in chronic flexor deformity. He is to see chiropractor in [facility] and probably some owner/photographer there and was put on Enbrel. He said it did not help one probably currently not following any doctor. In ED, his blood pressure was found high 195/117, but no tachycardia, tachypnea or hypoxia. Hemoglobin is 18.4, hematocrit 52.7 probably due to hemoconcentration. Urine specific gravity is normal, protein 500, CK 1000 371 suggestive of rhabdomyolysis. The patient initially was admitted on regular [facility] floor but later was transferred to ICU after rapid response was called for seizure and was managed. 1. New onset seizure, exact etiology unclear, probably related to metabolic derangements status post rapid response: Patient had CT head which does not show acute change or intracranial hemorrhage. There is chronic bilateral frontal lobe atrophy probably secondary to alcohol use although denies drinking heavy in the past. Neurologist has been consulted. EEG reported normal awake and drowsy EEG. No epileptiform discharges or electrographic seizures noted during the record. Patient is on Keppra 500 mg every 12 hourly 2. Right angulated, comminuted, intertrochanteric fracture, not reported on the first hip x-ray status post right cubital medullary nailing: second hip x-ray reported as Discussed with Dr. Cunha. postop day 1. On PT and OT. 3. Hypertension, uncontrolled sinus tachycardia: Patient denies any history of coronary artery disease, CHF but he has not been following physician and also noncompliant; not taking antihypertensive medication. Blood pressure is controlled. On lisinopril 10 mg daily. Chest x-ray does not show acute change. 2D echo shows stage I diastolic dysfunction with EF 55%. 4. Increased anion gap metabolic acidosis with compensatory respiratory alkalosis, hypokalemia, hypocalcemia: This happened after seizure but not clear as it cause or effect of seizure. Calcium is replaced. Repeat ABG showed pH seven-point 3/50/205. Currently patient is on 2 L of oxygen. Patient has Severe hypocalcemia: 2 g calcium gluconate was given. K3.7. CO2 25, anion gap 9. 5 Fall, prior to admission most likely mechanical secondary to chronic right hip joint arthritis exacerbated with chronic lumbosacral degenerative spondylosis with rhabdomyolysis:Chronic lumbosacral pain, sciatica in nature with features of ankylosing spondylitis on thoracic and lumbar spine x-rays: Although patient does not know the diagnosis of ankylosing spondylitis but he has positive symptoms of and he was getting Enbrel for that. Positive fluid balance About 2600 mL. IV fluid normal saline is decreased to 100 mL/h. Monitor intake and output. CK got elevated after seizure. PT and OT. Pain management and muscle relaxant. 7. Hemoconcentration with severe dehydration: IV fluid as mentioned above. 8 Chronic psoriasis and possible associated psoriatic arthritis: Follow-up owner/photographer outpatient. 10: Thrombocytopenia, present on admission: Patient is admitted with platelet count 102. It dropped to 71,000. 5 units of platelet transfused prior to surgery. Bilateral SCDs Laboratory Results 05/13/18 06:26: Sodium 142, Potassium 3.7, Chloride 108 H, Carbon Dioxide 25.0, Anion Gap 9, BUN 13, Creatinine 0.64 L, Estim Creat Clear Calc 101.49, Est GFR (MDRD) Af Amer 162, Est GFR (MDRD) Non-Af 134, BUN/Creatinine Ratio 20.2 H, Glucose 90, Calcium 6.4 L*, Total Bilirubin 1.30 H, AST 92 H, ALT 40, Alkaline Phosphatase 65, Total Creatine Kinase 2013 H, Total Protein 4.7 L, Albumin 2.1 L, Globulin 2.6, Albumin/Globulin Ratio 0.8 L Clinical Impression(s) from Imaging Studies Hip/Pelvis X-Ray 05/11/18 10:32 IMPRESSION: Degenerative changes of the hip. Findings suggestive of ankylosing spondylitis. Lumbar Spine X-Ray 05/11/18 10:32 IMPRESSION: Findings in keeping with ankylosing spondylitis. Thoracic Spine X-Ray 05/11/18 10:32 IMPRESSION: Findings in keeping with ankylosing spondylitis. Gallstones. Abdomen X-Ray 05/11/18 13:51 IMPRESSION: Gallstones. Calculus in the lower focus of the right kidney. Findings in keeping with ankylosing spondylitis. Brain CT 05/11/18 22:07 IMPRESSION: Chronic involutional changes of the brain. Bilateral frontal lobe atrophy. This may be associated with ethanol abuse. There is no evidence of intracranial hemorrhage or calvarial fracture. Hip/Pelvis X-Ray 05/11/18 23:31 IMPRESSION: Angulated, comminuted, right intertrochanteric fracture. Moderate degenerative arthrosis of the right hip. 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 Hip/Pelvis X-Ray 05/11/18 10:32 IMPRESSION: Degenerative changes of the hip. Findings suggestive of ankylosing spondylitis. Lumbar Spine X-Ray 05/11/18 10:32 IMPRESSION: Findings in keeping with ankylosing spondylitis. Thoracic Spine X-Ray 05/11/18 10:32 IMPRESSION: Findings in keeping with ankylosing spondylitis. Gallstones. Code Visit Inpatient E&M: 98794 Subs Hosp L3
--- NOTE | 2018-05-13 14:49 | PN_ITS ---
Patient Problems: Active and Suspected Problems Fall (Acute) Rhabdomyolysis (Acute) Seizure (Acute) Subjective: Patient is sitting in the chair. Postop day 1 from right hip cephalo-medullary nail for right hip intertrochanteric fracture. CKs is still elevated. Patient has mild tremors. Last BM 05/10. Patient had low-grade fever 99.9 Fahrenheit, heart rate 102 yesterday evening and night but afebrile in the morning. Vitals/I&O's: Vital Signs Temp Pulse Resp BP Pulse Ox 97.9 F 102 H 18 119/58 L 96 05/13/18 10:25 05/13/18 10:25 05/13/18 10:25 05/13/18 10:25 05/13/18 10:25 Oxygen Flow Rate (L/min) 2 Oxygen Delivery Method Nasal Cannula Weight: 167 lb 8.821 oz Body Mass Index (BMI) 28.2 Intake and Output for Last 24 Hours 05/11/18 05/12/18 05/13/18 23:59 23:59 23:59 Intake Total 597 / 597 4895 / 4895 3689 / 3689 Output Total 850 / 850 900 / 900 1050 / 1050 Balance -253 / -253 3995 / 3995 2639 / 2639 General: Alert, Oriented x3, Cooperative HEENT: Atraumatic, PERRLA, EOMI, Normocephalic Neck: Supple, No JVD, Negative Carotid Bruits Lungs: Clear to auscultation, Diminished - Air entry diminished in bilateral lung bases Cardiovascular: Regular rate, Normal S1, Normal S2, No murmurs Abdomen: Bowel Sounds Present, Soft, Non Tender Extremities: No edema, Capillary Refill Less than 3 Seconds Skin: No rashes, No breakdown Musculoskeletal: Arthritic Changes, Muscle Wasting, - - Right hip cupola medullary nailing. Dressing is dry. Right hip slightly tender postoperative. Neurological: Cranial nerves II-XII grossly intact, Neuro grossly intact Psych/Mental Status: Normal Affect, Appropriate Laboratory Results 05/13/18 06:26: Sodium 142, Potassium 3.7, Chloride 108 H, Carbon Dioxide 25.0, Anion Gap 9, BUN 13, Creatinine 0.64 L, Estim Creat Clear Calc 101.49, Est GFR (MDRD) Af Amer 162, Est GFR (MDRD) Non-Af 134, BUN/Creatinine Ratio 20.2 H, Glucose 90, Calcium 6.4 L*, Total Bilirubin 1.30 H, AST 92 H, ALT 40, Alkaline Phosphatase 65, Total Creatine Kinase 2013 H, Total Protein 4.7 L, Albumin 2.1 L , Globulin 2.6, Albumin/Globulin Ratio 0.8 L Current Medications Acetaminophen (Tylenol) 650 mg PO Q6H PRN PRN PRN Reason: Mild Pain (scale 0-3)/T>100.7 Al Hydroxide/Mg Hydroxide (Mylanta Ii) 30 ml PO Q6H PRN PRN PRN Reason: Gastric burning Bisacodyl (Dulcolax) 10 mg RECTAL DAILY PRN PRN PRN Reason: Constipation Cyclobenzaprine HCl (Flexeril) 10 mg PO TID [facility] Last Admin: 05/13/18 06:27 Dose: 10 mg Emollient Ointment (Eucerin Intensive Repair) 1 applic TOPICAL 4X/DAY PRN PRN; Protocol PRN Reason: DRY SKIN Enoxaparin Sodium (Lovenox) 40 mg SC DAILY@1000 [facility] Last Admin: 05/13/18 09:57 Dose: 40 mg Hydralazine HCl (Apresoline Iv) 10 mg IV Q6H PRN PRN PRN Reason: High Blood Pressure Sodium Chloride () 1,000 mls @ 150 mls/hr IV .Q6H40M [facility] Last Admin: 05/13/18 09:55 Dose: 150 mls/hr Sodium Chloride () 250 mls @ 15 mls/hr IV .[id number] PRN PRN Reason: SALINE FLUSH Last Admin: 05/12/18 12:52 Dose: 15 mls/hr Levetiracetam (Keppra Iv) 100 mls @ 400 mls/hr IV Q12 [facility] Last Admin: 05/13/18 10:33 Dose: 400 mls/hr Lisinopril (Zestril) 10 mg PO DAILY [facility] Last Admin: 05/13/18 09:59 Dose: 10 mg Morphine Sulfate () 2 - 4 mg IV Q3H PRN PRN PRN Reason: Severe Pain (pain scale 6-10) Ondansetron HCl (Zofran) 4 mg IV Q8H PRN PRN PRN Reason: NAUSEA Last Admin: 05/11/18 15:01 Dose: 4 mg Oxycodone HCl (Oxycontin) 15 mg PO BID [facility] Last Admin: 05/13/18 10:08 Dose: 15 mg Oxycodone HCl (Oxyir) 10 mg PO Q4H PRN PRN PRN Reason: Moderate Pain (pain scale 4-5) Last Admin: 05/12/18 22:43 Dose: 10 mg Polyethylene Glycol (Miralax) 17 gm PO DAILY [facility] Last Admin: 05/13/18 10:08 Dose: 17 gm [facility] Admin: 05/13/18 09:56 Dose: 40 meq Promethazine HCl (Phenergan) 12.5 mg IV Q6H PRN PRN PRN Reason: NAUSEA/VOMITING Senna/Docusate Sodium (Senokot-S, Marcie-Colace) 2 tablet PO BID [facility] Last Admin: 05/13/18 09:58 Dose: 2 tablet Sodium Chloride () 5 - 15 ml IV UD PRN PRN Reason: SALINE FLUSH Last Admin: 05/13/18 00:46 Dose: 10 ml Zolpidem Tartrate (Ambien (Generic)) 5 mg PO QHS PRN PRN PRN Reason: INSOMNIA Last Admin: 05/12/18 22:43 Dose: 5 mg Medical Necessity - Tobacco Use Smoking Status: Current every day smoker Assessment/Plan All Active Problems Fall (Acute) Rhabdomyolysis (Acute) Seizure (Acute) The patient is a 62 year old M with significant history of lumbosacral spondylosis and cervical spondylosis with chronic neck and back pain, sciatica in nature came to ER after he fell down yesterday. He fell down because his rig ht hip twisted as he was walking on the level ground. He could not stand up or move around and was laying down for 12 hours. Patient denies loss of consciousness or hitting the head. Before fall, he was not using cane or walker but he used cane in the past for some time. Patient is not able to roll over or sit up because of severe pain. He further states he has chronic back pain and neck pain for more than 20 years with history of 5 times back injuries. He denies back surgery. His neck is in chronic flexor deformity. He is to see chiropractor in [facility] and probably some director operations broadcast there and was put on Enbrel. He said it did not help one probably currently not following any doctor. In ED, his blood pressure was found high 195/117, but no tachycardia, tachypnea or hypoxia. Hemoglobin is 18.4, hematocrit 52.7 probably due to hemoconcentration. Urine specific gravity is normal, protein 500, CK 1000 371 suggestive of rhabdomyolysis. The [facility] but later was transferred to ICU after rapid response was called for seizure and was managed. 1. New onset seizure, exact etiology unclear, probably related to metabolic derangements status post rapid response: Patient had CT head which does not show acute change or intracranial hemorrhage. There is chronic bilateral frontal lobe atrophy probably secondary to alcohol use although denies drinking heavy in the past. Neurologist has been consulted. EEG reported normal awake and drowsy EEG. No epileptiform discharges or electrographic seizures noted during the rec ord. Patient is on Keppra 500 mg every 12 hourly 2. Right angulated, comminuted, intertrochanteric fracture, not reported on the first hip x-ray status post right cubital medullary nailing: second hip x- ray reported as Discussed with Dr. Cunha. postop day 1. On PT and OT. 3. Hypertension, uncontrolled sinus tachycardia: Patient denies any history of coronary artery disease, CHF but he has not been following physician and also noncompliant; not taking antihypertensive medication. Blood pressure is controlled. On lisinopril 10 mg daily. Chest x-ray does not show acute change. 2D echo shows stage I diastolic dysfunction with EF 55%. 4. Increased anion gap metabolic acidosis with compensatory respiratory alkalosis, hypokalemia, hypocalcemia: This happened after seizure but not clear as it cause or effect of seizure. Calcium is replaced. Repeat ABG showed pH seven-point 3/50/205. Currently patient is on 2 L of oxygen. Patient has Severe hypocalcemia: 2 g calcium gluconate was given. K3.7. CO2 25, anion gap 9. 5 Fall, prior to admission most likely mechanical secondary to chronic right hip joint arthritis exacerbated with chronic lumbosacral degenerative spondylosis with rhabdomyolysis:Chronic lumbosacral pain, sciatica in nature with features of ankylosing spondylitis on thoracic and lumbar spine x-rays: Although patient does not know the diagnosis of ankylosing spondylitis but he has positive symptoms of and he was getting Enbrel for that. Positive fluid balance About 2600 mL. IV fluid normal saline is decreased to 100 mL/h. Monitor intake and output. CK got elevated after seizure. PT and OT. Pain management and muscle relaxant. 7. Hemoconcentration with severe dehydration: IV fluid as mentioned above. 8 Chronic psoriasis and possible associated psoriatic arthritis: Follow-up director operations broadcast outpatient. 10: Thrombocytopenia, present on admission: Patient is admitted with platelet count 102. It dropped to 71,000. 5 units of platelet transfused prior to surgery. Bilateral SCDs Laboratory Results 05/13/18 06:26: Sodium 142, Potassium 3.7, Chloride 108 H, Carbon Dioxide 25.0, Anion Gap 9, BUN 13, Creatinine 0.64 L, Estim Creat Clear Calc 101.49, Est GFR (MDRD) Af Amer 162, Est GFR (MDRD) Non-Af 134, BUN/Creatinine Ratio 20.2 H, Glucose 90, Calcium 6.4 L*, Total Bilirubin 1.30 H, AST 92 H, ALT 40, Alkaline Phosphatase 65, Total Creatine Kinase 2013 H, Total Protein 4.7 L, Albumin 2.1 L , Globulin 2.6, Albumin/Globulin Ratio 0.8 L Clinical Impression(s) from Imaging Studies Hip/Pelvis X-Ray 05/11/18 10:32 IMPRESSION: Degenerative changes of the hip. Findings suggestive of ankylosing spondylitis. Lumbar Spine X-Ray 05/11/18 10:32 IMPRESSION: Findings in keeping with ankylosing spondylitis. Thoracic Spine X-Ray 05/11/18 10:32 IMPRESSION: Findings in keeping with ankylosing spondylitis. Gallstones. Abdomen X-Ray 05/11/18 13:51 IMPRESSION: Gallstones. Calculus in the lower focus of the right kidney. Findings in keeping with ankylosing spondylitis. Brain CT 05/11/18 22:07 IMPRESSION: Chronic involutional changes of the brain. Bilateral frontal lobe atrophy. This may be associated with ethanol abuse. There is no evidence of intracranial hemorrhage or calvarial fracture. Hip/Pelvis X-Ray 05/11/18 23:31 IMPRESSION: Angulated, comminuted, right intertrochanteric fracture. Moderate degenerative arthrosis of the right hip. 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 Hip/Pelvis X-Ray 05/11/18 10:32 IMPRESSION: Degenerative changes of the hip. Findings suggestive of ankylosing spondylitis. Lumbar Spine X-Ray 05/11/18 10:32 IMPRESSION: Findings in keeping with ankylosing spondylitis. Thoracic Spine X-Ray 05/11/18 10:32 IMPRESSION: Findings in keeping with ankylosing spondylitis. Gallstones. Code Visit Inpatient E&M: [id number] Subs Hosp L3
[2018-05-13] MEDS: 0.9% Normal Saline 1,000 ML 100 ML IV ×2 (14:52→18:55)
[2018-05-13 14:58] LABS: Absolute Lymphocyte Count 1.67 X10^3/ul (0.83-4.51); Absolute Neutrophil Count 6.5 X10^3/uL (2.0-7.7); Basophil# 0.02 X10^3/uL; Basophil% 0.2 % (0-1); Eosinophil# 0.04 X10^3/uL; Eosinophils% 0.4 % (0-5); Hematocrit 30.5 % (40-54); Lymphocyte # 1.67 X10^3/ul (4.0); Lymphocyte % 17.3 % (19-41); Mean Corp Hgb Conc 32.8 g/gl (32-36); Mean Corpuscular Hgb 31.7 pg (27.0-32.0); Mean Corpuscular Volume 96.8 fL (80-94); Monocyte% 14.5 % (0-10); Neutrophil # 6.51 X10^3/uL (2.7-7.7); Neutrophil % 67.2 % (47-70); Platelet Count 55 K/mm3 (150-450); RBC Distribution Width CV 12.4 % (11.6-14.6); RBC Distribution Width SD 42.1 fl (35.1-43.9); Red Blood Count 3.15 M/mm3 (4.6-6.2); White Blood Count 9.7 K/mm3 (4.4-11.0)
[2018-05-13 14:59] LABS: POSITIVE COUNT NO; POSITIVE DIFFERENTIAL NO; POSITIVE MORPHOLOGY NO
[2018-05-14] VITALS (7 sets, daily range): BP systolic 109–138; BP diastolic 56–71; PULSE 86–112; RESP 16–18; TEMP 36.7–37.3; O2SAT 20–98
[2018-05-14] MEDS: 0.9% Normal Saline 1,000 ML 100 ML IV (05:16)
[2018-05-14 08:15] LABS: Absolute Lymphocyte Count 1.28 X10^3/ul (0.83-4.51); Absolute Neutrophil Count 5.2 X10^3/uL (2.0-7.7); Basophil# 0.02 X10^3/uL; Basophil% 0.3 % (0-1); Eosinophil# 0.12 X10^3/uL; Eosinophils% 1.5 % (0-5); Hematocrit 26.4 % (40-54); Hemoglobin 8.8 g/dl (13.0-16.5); Lymphocyte # 1.28 X10^3/ul (4.0); Lymphocyte % 16.3 % (19-41); Mean Corp Hgb Conc 33.3 g/gl (32-36); Mean Corpuscular Hgb 31.5 pg (27.0-32.0); Mean Corpuscular Volume 94.6 fL (80-94); Monocyte# 1.27 X10^3/uL; Monocyte% 16.2 % (0-10); Neutrophil # 5.16 X10^3/uL (2.7-7.7); Neutrophil % 65.6 % (47-70); POSITIVE COUNT NO; POSITIVE DIFFERENTIAL NO; POSITIVE MORPHOLOGY NO; Platelet Count 61 K/mm3 (150-450); RBC Distribution Width CV 12.8 % (11.6-14.6); RBC Distribution Width SD 44.2 fl (35.1-43.9); Red Blood Count 2.79 M/mm3 (4.6-6.2); White Blood Count 7.9 K/mm3 (4.4-11.0)
--- NOTE | 2018-05-14 08:48 | NURSING ---
pt expressed to sean lugo that he can not feel anything below waist-pt has chronic back problems-f/c removed @ 0600-pt does not have knee reflexes when checked with hammer, although he could feel hammer tap, he did not have reflex visible, pt is unable to move his toes and can not feel touch w/ needle, dr rosemarie arnold paged to room and is now here examining pt
--- NOTE | 2018-05-14 08:53 | MRI_ITS ---
STUDY: MRI LUMBAR SPINE WITH AND WITHOUT CONTRAST REASON FOR EXAM: Male, 62 years old. New paralysis this morning from nipple line down. Recent fall with hip pinning. New seizure. Concern for cord compression. TECHNIQUE: Standardized fat and water weighted pulse sequences were obtained in the sagittal and axial planes. 8 ml of Gadavist contrast material was administered for the contrast portion of the examination. COMPARISON: None FINDINGS: T10-T11: (Sagittal only). Caudally tapered dorsal epidural hematoma at the mid T10 vertebral body level coming from above. Partial ankylosis in the anterior aspect of the T10 and T11 vertebral bodies. Hypoplastic disc. No ventral extradural defect. Normal central canal and bilateral intervertebral neural foramina at the disc level. T11-T12: (Sagittal only). Normal endplates. Normal disc height and morphology. Normal central canal and bilateral intervertebral neural foramina. T12-L1: (Sagittal only). Normal endplates. Normal disc height and morphology. No ventral extradural defect. Normal central canal and bilateral intervertebral neural foramina. Normal lumbar lordosis. There is no substantial scoliosis. Normal conus medullaris that terminates at the upper L1 vertebral body level. L1-2: Normal endplates. Normal disc height, hydration and morphology. Normal bilateral facet joints. Normal central canal and bilateral lateral recesses. Normal bilateral intervertebral neural foramina. L2-3: Partial ankylosis in the anterior aspect of the vertebral bodies. Normal endplates. Mild disc space height narrowing. No ventral extra dural defect. Normal central canal and bilateral lateral recesses. Normal facet joints. Normal bilateral intervertebral neural foramina. Prominent left renal cyst is visible at this level. L3-4: Partial ankylosis of the vertebral bodies. Normal endplates with mild disc space height narrowing. No ventral extradural defect. Normal central canal and bilateral lateral recesses. Normal facet joints. Normal bilateral intervertebral neural foramina. L4-5: Normal endplates. Normal disc height, hydration and morphology. Normal bilateral facet joints. Normal central canal and bilateral lateral recesses. Normal bilateral intervertebral neural foramina. L5-S1: Normal endplates. Mild disc space height narrowing. No ventral extradural defect. Normal central canal and bilateral lateral recesses. Normal facet joints. Normal bilateral intervertebral neural foramina. Normal visualized sacral ala. Fatty infiltration of the posterior paraspinal muscles. No suspicious enhancing lesions after IV contrast administration. MRI/Spine Lumbar W/WO Contrast IMPRESSION: 1. Partial ankylosis in the anterior aspect of T10 and T11 vertebral bodies, the anterior aspect of L2 and L3 vertebral bodies and the anterior aspect of L3 and L4 vertebral bodies due to known ankylosing spondylitis. 2. No acute fractures or malalignment of the lumbar spine. 3. No lumbar extruded disc fragment, spinal stenosis or nerve root displacement. 4. Caudally tapering dorsal epidural hematoma at the mid T10 vertebral body level is coming from above. Please see MRI of the thoracic spine showing large and long dorsal epidural hematoma extending cephalad to the T4-T5 disc level and acute fracture across the T8 vertebral body with comminution and acute fracture of the right T8 pedicle. COMMENT: Hospitalist physician Dr. Sudheer Lawton called me directly over the phone for a preliminary report of MRI C, T and L spine which I did. Electronically Signed: Fidel Andrews MD at 12:37 EST , Service support ,
--- NOTE | 2018-05-14 08:53 | MRI_ITS ---
STUDY: MRI CERVICAL SPINE WITH AND WITHOUT CONTRAST REASON FOR EXAM: Male, 62 years old. New paralysis this morning from nipple line down. Recent fall with hip pinning. New seizure. Concern for cord compression. TECHNIQUE: Standardized fat and water weighted pulse sequences were obtained in the sagittal and axial following I.V. administration of 8 ml of Gadavist contrast material. COMPARISON: None FINDINGS: Normal foramen magnum and brainstem-cervical cord junction. Normal craniovertebral junction. Normal anterior atlantoaxial articulation. Normal odontoid process. Cervical kyphosis at C6-C7 disc level due to old compression fractures of C6 and C7 vertebral bodies. No acute fractures of the cervical spine. C2-3: Normal endplates. Normal disc height, signal and morphology. Normal central canal and intervertebral neural foramina. C3-4: Partial ankylosis in the anterior aspect of the C3 and C4 vertebral bodies. Normal endplates and disc space. Normal central canal and bilateral intervertebral neural foramina. C4-5: Normal endplates. Normal disc height, signal and morphology. Normal central canal and intervertebral neural foramina. C5-6: Normal C5 inferior endplate. Old anterior wedge compression fracture of the C6 vertebral body. Normal disc space height and morphology. Normal central canal and bilateral intervertebral neural foramina. C6-7: Ankylosis of old anterior wedge compression fractures of C6 and C7 vertebral bodies. Posterior marginal spur. No spinal cord compression. Normal central canal and bilateral intervertebral neural foramina. C7-T1: Mild old compression fracture in the central aspect of the C7 inferior endplate. Minimal old anterior wedge compression fracture of the T1 superior endplate. Increased disc space height. No ventral extradural defect. Normal central canal and bilateral intervertebral neural foramina. T1-T2: Normal endplates. Normal disc height and morphology. Normal central canal and bilateral intervertebral neural foramina. T2-T3, T3-T4 and T4-T5: Normal endplates. Normal disc height and morphology. Normal central canal and bilateral intervertebral neural foramina. T5-T6: Normal endplates. Normal disc height and morphology. Severe central canal stenosis due to large dorsal epidural hematoma extending from the T4-T5 disc level down to the mid T10 vertebral body level on the MRI of the thoracic spine. Normal bilateral intervertebral neural foramina. Normal cervical cord. Normal visualized soft tissue structures. MRI/Spine Cervical W/WO Contrast IMPRESSION: 1. Old anterior wedge compression fractures with ankylosis of the C6 and C7 vertebral bodies. 2. No MRI evidence of acute fractures of the cervical spine. 3. No MRI evidence of cervical spinal stenosis or cervical spinal cord compressing lesions. 4. Partial ankylosis in the anterior aspect of C3-C4 vertebral bodies from known ankylosing spondylitis. 5. Large dorsal epidural hematoma tapering superiorly at the T4-T5 disc level but enlarges caudally with anterior displacement of the thoracic spinal cord and causing severe central canal stenosis. Please see MRI of the thoracic spine showing dorsal epidural hematoma extending down to the mid T10 vertebral body level and the acute fracture across the T8 vertebral body with mild comminution and acute fracture of the right T8 pedicle. COMMENT: Hospitalist physician Dr. Sudheer Lawton gave me a direct phone call for a preliminary report of the MRI C-spine and MRI thoracic spine which I gave. Electronically Signed: Fidel Andrews MD at 12:29 EST , Service support ,
--- NOTE | 2018-05-14 08:53 | MRI_ITS ---
STUDY: MRI THORACIC SPINE WITH AND WITHOUT CONTRAST REASON FOR EXAM: Male, 62 years old. Paralysis this morning from the nipple lying down. Recent fall with hip pinning. New seizure. Concern for cord compression. TECHNIQUE: 8 ml of Gadavist was administered intravenously for the contrast portion of the examination. COMPARISON: None. FINDINGS: Normal kyphosis of the thoracic spine. There is no substantial scoliosis. T1-2, T2-3, T3-4, T4-5, T5-6, T6-7, T7-8, T8-9, T9-10, T10-11, T11-12: Acute fracture across the T8 vertebral body with mild loss of the upper vertebral body height. There is also acute fracture of the right T8 pedicle. There is a large dorsal epidural hematoma extending from the T4-T5 disc level down to the mid T10 vertebral body level causing anterior displacement of the thoracic spinal cord and causing severe central canal stenosis. Partial ankylosis of the T9, T10 and T11 vertebral bodies are from known ankylosing spondylitis. No extruded disc fragment. Mild anterior wedge compression fracture of the upper T7 vertebral body without associated bone edema. No other suspicious recent fractures of the thoracic spine. Anterior displacement of the thoracic spinal cord without intrinsic signal abnormality from the T4-T5 disc level down to mid T10 vertebral body level. Normal conus medullaris that terminates at the T12-L1 disc level. The soft tissue structures are unremarkable. There is no enhancing abnormality. MRI/Spine Thoracic W/WO Contrast IMPRESSION: 1. Acute fracture across the T8 vertebral body with mild comminution and mild loss of the upper vertebral body height, acute fracture of the right T8 pedicle and large dorsal epidural hematoma extending from the T4-T5 disc level down to the mid T10 vertebral body level. This is causing severe central canal stenosis and anterior displacement of the thoracic spinal cord. 2. Mild old anterior wedge compression fracture of the upper T7 vertebral body. 3. No thoracic extruded disc fragment. 4. No intrinsic signal abnormality of the anteriorly displaced thoracic spinal cord. COMMENT: I gave a preliminary verbal report over the phone to hospitalist physician Dr. Sudheer Lawton. Electronically Signed: Fidel Andrews MD at 12:18 EST , Service support ,
--- NOTE | 2018-05-14 09:02 | NURSING ---
into pt's room w/ and Dr. Terrie Pastor stat paged. awaRe per Dr. Lawton no c-collar at this time.
--- NOTE | 2018-05-14 09:05 | MRI_ITS ---
STUDY: MRI BRAIN WITHOUT CONTRAST REASON FOR EXAM: Male, 62 years old. New paralysis this morning from nipple lying down. Recent fall with hip pinning. New seizure. TECHNIQUE: Standardized multiplanar fat and water weighted pulse sequences were obtained. Fast scan protocol was used due to patient's inability to cooperate. COMPARISON: MRI of the brain without contrast 05/13/2018. FINDINGS: No restricted diffusion to suspect acute or subacute ischemic infarct. The T2 and FLAIR hyperintensity foci in the medial aspect of the posterior occipital lobes more than the parietal lobes have not changed. Normal size of the ventricles and extra-axial spaces for the patient's age. Normal white matter tracts of the supratentorial brain. Normal bilateral basal ganglia. Normal thalami. There is no extra-axial fluid accumulation. Normal flow voids within the major intracranial circulation suggesting patency by spin echo criteria. Normal sella turcica, pituitary gland, infundibular stalk, optic chiasm and hypothalamus. Normal tectal plate and pineal gland. Normal midbrain, regino and medulla. Normal cerebellum. Normal basal cisterns. Normal bilateral temporal bones. Normal bilateral internal auditory canals. No demonstrated orbital abnormality, within the constraints of a routine brain study. Normal visualized paranasal sinuses. Normal calvarium and skull base. Normal visualized soft tissue structures. Normal visualized upper cervical spine. MRI/Brain without Contrast IMPRESSION: 1. No suspicious acute or subacute ischemic infarct on DWI sequence. 2. No obvious significant interval changes of the nearly symmetrical T2 FLAIR hyperintensity foci in both medial occipital lobes more than the parietal lobes and the posterior periventricular white matter. 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 Electronically Signed: Fidel Andrews MD at 10:34 EST , Service support ,
[2018-05-14 09:11] LABS: Anion Gap 7 (5-15); BUN 11 mg/dL (7-18); BUN/Creat Ratio 16.3 RATIO (10-20); CPK Total, Creatine Kinase 1201 U/L (39-308); Calcium,Total 6.9 mg/dL (8.5-10.1); Chloride 106 mmol/L (98-107); Creatinine, Serum 0.68 mg/dL (0.70-1.30); EST Glomerular Filtration Rate 127 mL/min (>60); Est Glom Filt Rate - Afr Amer 153 mL/min (>60); Estimated Creatinine Clearance 95.52 ml/min; Glucose 82 mg/dL (74-106); Potassium 3.5 mmol/L (3.5-5.1); Sodium Level 142 mmol/L (136-145)
[2018-05-14] MEDS: levETIRAcetam IV 100 ML 400 MG IV (09:12)
[2018-05-14] MEDS: LORazepam 2 MG/ML Syringe 1 MG IV (09:27)
--- NOTE | 2018-05-14 09:33 | PN.ORTHO_ITS ---
Patient Problems: Active and Suspected Problems Fall (Acute) Rhabdomyolysis (Acute) Seizure (Acute) Subjective: The patient was resting in bed upon examination. Patient denies any chest pain, shortness of breath, dizziness, lightheadedness, nausea or vomiting, or calf pain. Patient states he has no feeling from his abdomen down to his legs. He is not able to move his legs bilaterally. Patient states this began yesterday. Patient states when he stood up with assistance yesterday he had back pain and since then he has had no feeling in his lower legs or abdomen. Patient states he is not able to move his feet. Patient had a Louise cath which was removed today. Patient has history of lumbar/thoracic ankylosing spondylitis. He is also had multiple surgeries on the cervical spine in the past. On exam yesterday morning patient did have sensation to the feet and was able to plantarflex/dorsiflex both feet. All the symptoms began after he was gotten out of bed. Objective: Vital signs stable and afebrile. Patient has no motor function of bilateral lower extremities. He is unable to move or wiggle his toes. Patient states he is not able to move his legs. Patient has loss of sensation to bilateral lower extremities. Loss of sensation begins at T5 and down. Sensation was tested with needle as well as cotton tip applicator. Patient was only able to start having sensation appreciated around T4 at nipple line. Patient is able to move his arms and sensation within normal limits of bilateral upper extremities. Deep tendon reflex: Patella reflex 0, upon using reflex hammer on the patella tendon patient feels sensation in his neck Dressings are clean dry and intact. - Physical Exam General: Alert, Oriented x3, Cooperative Vital Signs Temp Pulse Resp BP Pulse Ox 98.2 F 99 18 109/66 96 05/14/18 08:25 05/14/18 08:25 05/14/18 08:25 05/14/18 08:25 05/14/18 08:25 Oxygen Flow Rate (L/min) 1 Oxygen Delivery Method Room Air Weight: 81.5 kg Body Mass Index (BMI) 28.2 Intake and Output for Last 24 Hours 05/12/18 05/13/18 05/14/18 23:59 23:59 23:59 Intake Total 4895 / 4895 4091 / 4091 1575 / 1575 Output Total 900 / 900 1650 / 1650 700 / 700 Balance 3995 / 3995 2441 / 2441 875 / 875 Laboratory Tests Past 24 Hrs 05/13/18 05/14/18 05/14/18 06:26 07:10 07:10 WBC 9.7 7.9 RBC 3.15 L 2.79 L Hgb 10.0 L 8.8 L Hct 30.5 L 26.4 L MCV 96.8 H 94.6 H MCH 31.7 31.5 MCHC 32.8 33.3 RDW 12.4 12.8 RDW Differential 42.1 44.2 H Plt Count 55 L 61 L MPV 11.0 11.0 Immature Gran % (Auto) 0.400 0.100 Neut % (Auto) 67.2 65.6 Lymph % (Auto) 17.3 L 16.3 L [place] % (Auto) 14.5 H 16.2 H Eos % (Auto) 0.4 1.5 Baso % (Auto) 0.2 0.3 Absolute Neuts (auto) 6.5 5.2 Absolute Lymphs (auto) 1.67 1.28 Total Counted Not Reportable Not Reportable Sodium 142 Potassium 3.5 Chloride 106 Carbon Dioxide 29.0 Anion Gap 7 BUN 11 Creatinine 0.68 L Estim Creat Clear Calc 95.52 Est GFR (MDRD) Af Amer 153 Est GFR (MDRD) Non-Af 127 BUN/Creatinine Ratio 16.3 Glucose 82 Calcium 6.9 L Total Creatine Kinase 1201 H Medical Necessity - Tobacco Use Smoking Status: Current every day smoker Assessment/Plan All Active Problems Fall (Acute) Rhabdomyolysis (Acute) Seizure (Acute) 1. S/P right hip cephalo-medullary nail POD #2 2. Continue Pain Medications: Tylenol and OxyIR 3. DVT Prophylaxis: Defer to primary service, currently on Lovenox 4. PT/OT: Patient was weightbearing as tolerated postoperatively. Patient did require significant assistance when getting up bedside. 5. H & H: 8.8/26.4, asymptomatic 6. Encouraged Incentive Spirometry 7. Continue postoperative medical management per medicine: 8. Chronic low back pain cervical neck pain with history of ankylosing spondylitis 9. Thrombocytopenia 10. New onset seizure: Neurology has been consulted 11. Concern for central cord injury: On exam patient had no sensation from T5 down, patient has loss of motor function bilateral lower extremities, DTR reflex patella 0. Case was discussed with Dr. Iam Cunha as well as the hospitalist. Hospitalist was contacted emergently after exam by myself. Patient is getting a stat MRI of the lumbar, thoracic, cervical spine. Please see Dr. Lawton's documented note for his clinical exam. Due to patient's clinical exam and history of ankylosing spondylitis there is concern for central cord injury and would recommend transfer immediately to appropriate hospital back and manage this condition.
--- NOTE | 2018-05-14 09:33 | NURSING ---
pt chemehuevi but a&o x3, forgetful about dr godinez-pt to MRI via bed after 1 mg ativan iv
--- NOTE | 2018-05-14 10:10 | DS.PCM_ITS ---
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 He fell down because his right hip twisted as he was walking on the level ground. He could not stand up or move around and was laying down for 12 hours. Patient denies loss of consciousness or hitting the head. Before fall, he was not using cane or walker but he used cane in the past for some time. Patient is not able to roll over or sit up because of severe pain. He further states he has chronic back pain and neck pain for more than 20 years with history of 5 times back injuries. He denies back surgery. His neck is in chronic flexor deformity. He is to see chiropractor in [facility] and probably some control cabinet assembler there and was put on Enbrel. He said it did not help one probably currently not following any doctor. In ED, his blood pressure was found high 195/117, but no tachycardia, tachypnea or hypoxia. Hemoglobin is 18.4, hematocrit 52.7 probably due to hemoconcentration. Urine specific gravity is normal, protein 500, CK 1000 371 suggestive of rhabdomyolysis. The patient initially was admitted on regular MedSurg floor but later was transferred to ICU after rapid response was called for seizure and was managed. I was called in the morning stat for acute lower extremity weakness with sensory loss below chest level. Patient was seen and examined 1. Acute thoracic cord compression/nerve impingement from epidural hematoma from T4-T10 level with recent T8 fracture of the body and pedicle: Neurologist was called and he advised MRI C-spine, thoracic spine with additional DWI and MRI lumbar spine. Repeat MRI brain although previous MRI brain reported as suspicion of PRESS both medial occipital lobe more than parietal lobes and posterior periventricular subarachnoid white matter. This was discussed with orthopedic surgeon Dr. Cunha, he recommended urgent transfer. Rectal exam was done and shows no or very weak anal sphincter tone. I called [facility] said patient needs urgent transfer to [facility] as they do not do urgent surgery or cord compression surgery. [facility] transfer line was called and discussed with the transfer church secretary with exchange of information. Radiologist called for the above finding of epidural hematoma. It seems T8 fracture might have happened during fall with history of ankylosis spondylosis and arthritis and degenerative changes before admission, probably missed on x-ray but diagnosed on MRI. Hospital course, clinical findings, labs, vitals and imaging test discussed with the neurosurgeon Dr. Nichols, [facility] and he accepted the patient. Patient was life flighted through helicopter to [facility]. In meantime, 1 unit of single donor platelet transfusion in progress. New onset seizure, exact etiology unclear, probably related to metabolic derangements status post rapid response: Patient had CT head which does not show acute change or intracranial hemorrhage. There is chronic bilateral frontal lobe atrophy probably secondary to alcohol use although denies drinking heavy in the past. Neurologist has been consulted. EEG reported normal awake and drowsy EEG. No epileptiform discharges or electrographic seizures noted during the record. Patient is on Keppra 500 mg every 12 hourly 2. Right angulated, comminuted, intertrochanteric fracture, not reported on the first hip x-ray status post right cubital medullary nailing: second hip x- ray reported as Discussed with Dr. Cunha. Second postop day . On PT and OT. Discussed with the orthopedic surgeon as mentioned above 3. Hypertension, uncontrolled sinus tachycardia: Patient denies any history of coronary artery disease, CHF but he has not been following physician and also noncompliant; not taking antihypertensive medication. Blood pressure is controlled. On lisinopril 10 mg daily. Chest x-ray does not show acute change. 2D echo shows stage I diastolic dysfunction with EF 55%. 4. Increased anion gap metabolic acidosis with compensatory respiratory alkalosis, hypokalemia, hypocalcemia: This happened after seizure but not clear as it cause or effect of seizure. Calcium is replaced. Repeat ABG showed pH seven-point 3/50/205. Currently patient is on 2 L of oxygen. Patient has Severe hypocalcemia: 2 g calcium gluconate was given. K3.7. CO2 25, anion gap 9. Repeat calcium 6.9. 5 Fall, prior to admission most likely mechanical secondary to chronic right hip joint arthritis exacerbated with chronic lumbosacral degenerative spondylosis with rhabdomyolysis:Chronic lumbosacral pain, sciatica in nature with features of ankylosing spondylitis on thoracic and lumbar spine x-rays: Although patient does not know the diagnosis of ankylosing spondylitis but he has positive symptoms of and he was getting Enbrel for that. Positive fluid balance About 2600 mL. IV fluid normal saline is decreased to 100 mL/h. Monitor intake and output. CK got elevated after seizure. CK trending down PT and OT. Pain management and muscle relaxant. 7. Hemoconcentration with severe dehydration: IV fluid as mentioned above. 8 Chronic psoriasis and possible associated psoriatic arthritis: Follow-up control cabinet assembler outpatient. 10: Thrombocytopenia, present on admission: Patient is admitted with platelet count 102. It dropped to 71,000. 5 units of platelet transfused prior to surgery. 6 seconds single donor platelet transfusion in progress when the patient was transferred. Bilateral SCDs. Pharmacological prophylaxis contraindicated Subjective: Patient seen and examined. Patient was able to stand up with the help of walker yesterday in the morning but today in the morning was called that he does not have sensation below nipple level. Not able to move his legs. Patient does not have bladder filling sensation but he had Louise catheter before that was removed just in the morning at 6:30 AM. Patient also does not have bowel movement for last 3-4 days, although on stool softeners. - Physical Exam General: Alert, Oriented x3, Cooperative HEENT: Atraumatic, PERRLA, EOMI, Normocephalic Neck: Supple, No JVD, Negative Carotid Bruits Lungs: Clear to auscultation, No rhonchi, No wheeze, No rales, Diminished Cardiovascular: Regular rate, Regular Rhythm, Normal S1, Normal S2, No murmurs Abdomen: Bowel Sounds Present, Soft, Non Tender, Distended - Mild gaseous distention, - - On rectal exam, mechanical sphincter muscle on bear down Extremities: Capillary Refill Less than 3 Seconds, Edema Skin: No rashes, No breakdown Musculoskeletal: No Tenderness to Palpation of Joints or Extremities Neurological: Cranial nerves II-XII grossly intact, - - No sensation to touch below the nipple level. No spontaneous motor movement of lower extremities including knee, ankle or toe level. Plantar reflex negative with no spraying of toes. Left lower extremity and right lower extremity falls, /. No deep tendon reflexes; 05/27 Psych/Mental Status: Normal Affect, Appropriate Vital Signs Temp Pulse Resp BP Pulse Ox 98.2 F 90 18 109/66 95 05/14/18 08:25 05/14/18 08:30 05/14/18 08:25 05/14/18 08:25 05/14/18 08:30 Oxygen Flow Rate (L/min) 1 Oxygen Delivery Method Room Air Weight: 179 lb 10.828 oz Body Mass Index (BMI) 28.2 Intake and Output for Last 24 Hours 05/12/18 05/13/18 05/14/18 23:59 23:59 23:59 Intake Total 4895 / 4895 4091 / 4091 1575 / 1575 Output Total 900 / 900 1650 / 1650 700 / 700 Balance 3995 / 3995 2441 / 2441 875 / 875 Laboratory Tests Past 24 Hrs 05/13/18 05/14/18 05/14/18 06:26 07:10 07:10 WBC 9.7 7.9 RBC 3.15 L 2.79 L Hgb 10.0 L 8.8 L Hct 30.5 L 26.4 L MCV 96.8 H 94.6 H MCH 31.7 31.5 MCHC 32.8 33.3 RDW 12.4 12.8 RDW Differential 42.1 44.2 H Plt Count 55 L 61 L MPV 11.0 11.0 Immature Gran % (Auto) 0.400 0.100 Neut % (Auto) 67.2 65.6 Lymph % (Auto) 17.3 L 16.3 L [place] % (Auto) 14.5 H 16.2 H Eos % (Auto) 0.4 1.5 Baso % (Auto) 0.2 0.3 Absolute Neuts (auto) 6.5 5.2 Absolute Lymphs (auto) 1.67 1.28 Total Counted Not Reportable Not Reportable Sodium 142 Potassium 3.5 Chloride 106 Carbon Dioxide 29.0 Anion Gap 7 BUN 11 Creatinine 0.68 L Estim Creat Clear Calc 95.52 Est GFR (MDRD) Af Amer 153 Est GFR (MDRD) Non-Af 127 BUN/Creatinine Ratio 16.3 Glucose 82 Calcium 6.9 L Total Creatine Kinase 1201 H Home Medications: Medications to take at Discharge Lisinopril/Hctz 1 tab PO DAILY 05/11/18 Omeprazole 20 mg PO BID 05/11/18 Primary Care Physician: Yang Saul MD [Primary Care Provider] - Medical Necessity - Tobacco Use Smoking Status: Current every day smoker Meaningful Use Info Meaningful Use Diagnoses (Choose all that apply): None applicable Code Visit Inpatient E&M: 24484 Disch Hosp
--- NOTE | 2018-05-14 10:36 | NURSING ---
pt remains off unit
--- NOTE | 2018-05-14 11:11 | NURSING ---
pt remains off unit for testing
--- NOTE | 2018-05-14 11:22 | NURSING ---
pt remains off unit for testing
--- NOTE | 2018-05-14 11:55 | NURSING ---
pt returned to unit, head and knees locked-iv decadron given and 1st k+ rider hung
--- NOTE | 2018-05-14 12:23 | NURSING ---
dr escobar and dr houston at bedside discussing transfer and MRI results-pt agreeable to transfer-awaiting bed assignment at this time
--- NOTE | 2018-05-14 12:26 | NURSING ---
pt gave info for sister-in law and asked that we inform her/family that he is being transferred out to [facility] per his request there is a neighbor/friend in his room and she is aware also but does not know his family-called steven bagley @ [email or web address] in [place] and informed her of transport
--- NOTE | 2018-05-14 12:33 | PCM.PN.NEU ---
Subjective: Patient had acute onset LE weakness with sensory loss this morning. Stat MRI C spine and T spine showed- acute T 8 fracture with dorsal epidural hematoma extending from T4 to T10 level. 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 MRI Brain showed PRES. - Physical Exam General: Alert HEENT: Normocephalic Neck: Supple Lungs: Normal air movement Cardiovascular: Normal S1, Normal S2 Abdomen: Bowel Sounds Present Extremities: No cyanosis Neurological: - - consious, alert, AoAx3, CN 2-12 grossly intact. power B/L UE 5/5, B/L LE 0/5, sensory level at T2-T3 below, Reflexes + B/L B/S/T/K/A, gait cannot be assessed. Psych/Mental Status: Normal Affect Vital Signs Temp Pulse Resp BP Pulse Ox 99.1 F 102 H 18 122/71 H 95 05/14/18 12:17 05/14/18 12:17 05/14/18 12:17 05/14/18 12:17 05/14/18 12:17 Oxygen Flow Rate (L/min) 1 Oxygen Delivery Method Nasal Cannula Weight: 81.5 kg Body Mass Index (BMI) 28.2 Intake and Output for Last 24 Hours 05/12/18 05/13/18 05/14/18 23:59 23:59 23:59 Intake Total 4895 / 4895 4091 / 4091 1787 / 1787 Output Total 900 / 900 1650 / 1650 700 / 700 Balance 3995 / 3995 2441 / 2441 1087 / 1087 Microbiology Past 72 Hours 05/12/18 01:15 Blood Culture - Preliminary Blood Culture (Wb) - Arm Left No growth in 48 hours. 05/12/18 01:30 Blood Culture - Preliminary Blood Culture (Wb) - Right Forearm No growth in 48 hours. Laboratory Tests Past 24 Hrs 05/13/18 05/14/18 05/14/18 06:26 07:10 07:10 WBC 9.7 7.9 RBC 3.15 L 2.79 L Hgb 10.0 L 8.8 L Hct 30.5 L 26.4 L MCV 96.8 H 94.6 H MCH 31.7 31.5 MCHC 32.8 33.3 RDW 12.4 12.8 RDW Differential 42.1 44.2 H Plt Count 55 L 61 L MPV 11.0 11.0 Immature Gran % (Auto) 0.400 0.100 Neut % (Auto) 67.2 65.6 Lymph % (Auto) 17.3 L 16.3 L [place] % (Auto) 14.5 H 16.2 H Eos % (Auto) 0.4 1.5 Baso % (Auto) 0.2 0.3 Absolute Neuts (auto) 6.5 5.2 Absolute Lymphs (auto) 1.67 1.28 Total Counted Not Reportable Not Reportable Sodium 142 Potassium 3.5 Chloride 106 Carbon Dioxide 29.0 Anion Gap 7 BUN 11 Creatinine 0.68 L Estim Creat Clear Calc 95.52 Est GFR (MDRD) Af Amer 153 Est GFR (MDRD) Non-Af 127 BUN/Creatinine Ratio 16.3 Glucose 82 Calcium 6.9 L Total Creatine Kinase 1201 H Medical Necessity - Tobacco Use Smoking Status: Current every day smoker Assessment/Plan All Active Problems Fall (Resolved) Rhabdomyolysis (Resolved) The patient is a 62 year old CM with PMH cervical/lumbar spondylosis, psoriasis, marijuana abuse, ? ETOH abuse admitted s/p mechanical fall, found to have acute, comminuted right intertrochanteric fracture. Patient is very [place]. History is obtained from medical records and patient. Neurology consulted for seizure. Per documentation 05/11/18 DIRECTOR NURSES' REGISTRY was called as patient had witnessed GTCs, followed by agitation and confusion, no tongue bite or urinary incontinence documented, per documentation patient had 2 seizures, was given Ativan. Patient was unaware of the event. Per patient he never had seizures. Lives in an assisted living probably, uses cane occasionally, denies any frequent falls, does not have a car to drive. Denies any BROWN, dizziness, focal motor weakness or sensory loss, denies any visual disturbances or speech disturbances. Labs: WBC-22.2, Plt-108, Cr-1.15, K-3.4, Na-141, AST/ALT-71/120, LA-8.9, UA-LE-25, WBC-0-5, UDS +ve for cannabinoids. Total CK-2957. CT head reported not to show anything acute. Patient is s/p surgery right hip cephalo-medullary nail on 05/12/[address] Cunha and this morning 05/14/18 was found to have acute B/L LE weakness with T2-T3 sensory level and MRI C/T spine showed acute T8 fracture with dorsal epidural hematoma from T4-T10 level. Impression Seizures PRES Acute T8 fracture with dorsal Epidural hematoma from T4-T10 level (this morning 05/14/18)- has thrombocytopenia and is post surgery Right hip cephalo-medullary nail on 05/12/18 Plan -Stat Neurosurgery consult for spinal epidural hematoma, transfer to tertiary center [facility] for surgical consideration. -Reversal of the bleed, in the setting of severe thrombocytopenia, will defer to hospitalist and neurosurgery. -Keppra 500 mg IV BID. S/E discussed in detail. AED since patient had 2 seizures per documentation and MRI brain shows PRES -Correction of underlying metabolic abnormalities per hospitalist/ICU team -MRI brain w/o contrast- showed PRES. Recommend strict blood pressure control with goal BP 120/80 mmHg. -EEG-nothing epileptiform -Strict control of BP to < 120/80 mmHg, avoid hypotension -Patient counseled not to drive for 6 months -Seizure precautions discussed in detail -PT/OT -Fall precautions -Patient counseled to stop ETOH abuse, and marijuana -Follow up with Neurology as outpatient in 6 weeks for seizures -Please call with questions if any -Thank you for allowing us to participate in patient's care and management.
--- NOTE | 2018-05-14 12:38 | PN.NEURO_ITS ---
Subjective: Patient had acute onset LE weakness with sensory loss this morning. Stat MRI C spine and T spine showed- acute T 8 fracture with dorsal epidural h ematoma extending from T4 to T10 level. 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 MRI Brain showed PRES. - Physical Exam General: Alert HEENT: Normocephalic Neck: Supple Lungs: Normal air movement Cardiovascular: Normal S1, Normal S2 Abdomen: Bowel Sounds Present Extremities: No cyanosis Neurological: - - consious, alert, AoAx3, CN 2-12 grossly intact. power B/L UE 5/5, B/L LE 0/5, sensory level at T2-T3 below, Reflexes + B/L B/S/T/K/A, gait cannot be assessed. Psych/Mental Status: Normal Affect Vital Signs Temp Pulse Resp BP Pulse Ox 99.1 F 102 H 18 122/71 H 95 05/14/18 12:17 05/14/18 12:17 05/14/18 12:17 05/14/18 12:17 05/14/18 12:17 Oxygen Flow Rate (L/min) 1 Oxygen Delivery Method Nasal Cannula Weight: 81.5 kg Body Mass Index (BMI) 28.2 Intake and Output for Last 24 Hours 05/12/18 05/13/18 05/14/18 23:59 23:59 23:59 Intake Total 4895 / 4895 4091 / 4091 1787 / 1787 Output Total 900 / 900 1650 / 1650 700 / 700 Balance 3995 / 3995 2441 / 2441 1087 / 1087 Microbiology Past 72 Hours 05/12/18 01:15 Blood Culture - Preliminary Blood Culture (Wb) - Arm Left No growth in 48 hours. 05/12/18 01:30 Blood Culture - Preliminary Blood Culture (Wb) - Right Forearm No growth in 48 hours. Laboratory Tests Past 24 Hrs 05/13/18 05/14/18 05/14/18 06:26 07:10 07:10 WBC 9.7 7.9 RBC 3.15 L 2.79 L Hgb 10.0 L 8.8 L Hct 30.5 L 26.4 L MCV 96.8 H 94.6 H MCH 31.7 31.5 MCHC 32.8 33.3 RDW 12.4 12.8 RDW Differential 42.1 44.2 H Plt Count 55 L 61 L MPV 11.0 11.0 Immature Gran % (Auto) 0.400 0.100 Neut % (Auto) 67.2 65.6 Lymph % (Auto) 17.3 L 16.3 L [place] % (Auto) 14.5 H 16.2 H Eos % (Auto) 0.4 1.5 Baso % (Auto) 0.2 0.3 Absolute Neuts (auto) 6.5 5.2 Absolute Lymphs (auto) 1.67 1.28 Total Counted Not Reportable Not Reportable Sodium 142 Potassium 3.5 Chloride 106 Carbon Dioxide 29.0 Anion Gap 7 BUN 11 Creatinine 0.68 L Estim Creat Clear Calc 95.52 Est GFR (MDRD) Af Amer 153 Est GFR (MDRD) Non-Af 127 BUN/Creatinine Ratio 16.3 Glucose 82 Calcium 6.9 L Total Creatine Kinase 1201 H Medical Necessity - Tobacco Use Smoking Status: Current every day smoker Assessment/Plan All Active Problems Fall (Resolved) Rhabdomyolysis (Resolved) The patient is a 62 year old CM with PMH cervical/lumbar spondylosis, psoriasis, marijuana abuse, ? ETOH abuse admitted s/p mechanical fall, found to have acute, comminuted right intertrochanteric fracture. Patient is very [place]. History is obtained from medical records and patient. Neurology consulted for seizure. Per documentation 05/11/18 LEASING COORDINATOR was called as patient had witnessed GTCs, followed by agitation and confusion, no tongue bite or urinary incontinence documented, per documentation patient had 2 seizures, was given Ativan. Patient was unaware of the event. Per patient he never had seizures. Lives in an assisted living probably, uses cane occasionally, denies any frequent falls, does not have a car to drive. Denies any BROWN, dizziness, focal motor weakness or sensory loss, denies any visual disturbances or speech disturbances. Labs: WBC-22.2, Plt-108, Cr- 1.15, K-3.4, Na-141, AST/ALT-71/120, LA-8.9, UA-LE-25, WBC-0-5, UDS +ve for cannabinoids. Total CK-2957. CT head reported not to show anything acute. Patient is s/p surgery right hip cephalo-medullary nail on 05/12/[address] Cunha and this morning 05/14/18 was found to have acute B/L LE weakness with T2-T3 sensory level and MRI C/T spine showed acute T8 fracture with dorsal epidural hematoma from T4-T10 level. Impression Seizures PRES Acute T8 fracture with dorsal Epidural hematoma from T4-T10 level (this morning 05/14/18)- has thrombocytopenia and is post surgery Right hip cephalo-medullary nail on 05/12/18 Plan -Stat Neurosurgery consult for spinal epidural hematoma, transfer to tertiary center [facility] for surgical consideration. -Reversal of the bleed, in the setting of severe thrombocytopenia, will defer to hospitalist and neurosurgery. -Keppra 500 mg IV BID. S/E discussed in detail. AED since patient had 2 seizures per documentation and MRI brain shows PRES -Correction of underlying metabolic abnormalities per hospitalist/ICU team -MRI brain w/o contrast- showed PRES. Recommend strict blood pressure control with goal BP 120/80 mmHg. -EEG-nothing epileptiform -Strict control of BP to < 120/80 mmHg, avoid hypotension -Patient counseled not to drive for 6 months -Seizure precautions discussed in detail -PT/OT -Fall precautions -Patient counseled to stop ETOH abuse, and marijuana -Follow up with Neurology as outpatient in 6 weeks for seizures -Please call with questions if any -Thank you for allowing us to participate in patient's care and management.
--- NOTE | 2018-05-14 12:49 | NURSING ---
Addendum entered by Caprice Azul 05/15/18 07:00: [facility] called back stating [facility] will be able to fly patient. [facility] called in, information given. administrative supervisor notified. Original Note: [facility] called, information given. aware because of weather conditions unable to fly will go with mobile crew. awaiting call back.
--- NOTE | 2018-05-14 12:59 | NURSING ---
dr mathews and dr houston made aware of pt c/o visual disturbance of nurse standing at bedside being upside down and torres being where ceiling should be-no new orders-awaiting ground flight response for transfer, unable to go via flight d/t ice/weather conditions-wallet and clothing sent with neighbor maribell who is here visiting-pt is still a&o x3, dr mathews expressed that if pt can not be transferrered quickly, pt should be transferred to icu, #16 f/c placed w/ immediate return of 300 ml donna urine, platelets are running
--- NOTE | 2018-05-14 13:10 | NURSING ---
pt on tele 110's.
--- NOTE | 2018-05-14 13:26 | NURSING ---
Dr. Lawton at bedside talking w/ [facility].
--- NOTE | 2018-05-14 13:41 | NURSING ---
transferred via [facility] after pt placed on a back board and secured
--- NOTE | 2018-05-14 13:54 | NURSING ---
report called to sheldon [phone] @ ext [phone]
--- NOTE | 2018-05-14 14:00 | PCM.DC.SUM ---
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 He fell down because his right hip twisted as he was walking on the level ground. He could not stand up or move around and was laying down for 12 hours. Patient denies loss of consciousness or hitting the head. Before fall, he was not using cane or walker but he used cane in the past for some time. Patient is not able to roll over or sit up because of severe pain. He further states he has chronic back pain and neck pain for more than 20 years with history of 5 times back injuries. He denies back surgery. His neck is in chronic flexor deformity. He is to see chiropractor in [facility] and probably some catalogue and special products manager there and was put on Enbrel. He said it did not help one probably currently not following any doctor. In ED, his blood pressure was found high 195/117, but no tachycardia, tachypnea or hypoxia. Hemoglobin is 18.4, hematocrit 52.7 probably due to hemoconcentration. Urine specific gravity is normal, protein 500, CK 1000 371 suggestive of rhabdomyolysis. The patient initially was admitted on regular MedSurg floor but later was transferred to ICU after rapid response was called for seizure and was managed. I was called in the morning stat for acute lower extremity weakness with sensory loss below chest level. Patient was seen and examined 1. Acute thoracic cord compression/nerve impingement from epidural hematoma from T4-T10 level with recent T8 fracture of the body and pedicle: Neurologist was called and he advised MRI C-spine, thoracic spine with additional DWI and MRI lumbar spine. Repeat MRI brain although previous MRI brain reported as suspicion of PRESS both medial occipital lobe more than parietal lobes and posterior periventricular subarachnoid white matter. This was discussed with orthopedic surgeon Dr. Cunha, he recommended urgent transfer. Rectal exam was done and shows no or very weak anal sphincter tone. I called [facility] said patient needs urgent transfer to [facility] as they do not do urgent surgery or cord compression surgery. [facility] transfer line was called and discussed with the transfer secretary of state with exchange of information. Radiologist called for the above finding of epidural hematoma. It seems T8 fracture might have happened during fall with history of ankylosis spondylosis and arthritis and degenerative changes before admission, probably missed on x-ray but diagnosed on MRI. Hospital course, clinical findings, labs, vitals and imaging test discussed with the neurosurgeon Dr. Nichols, [facility] and he accepted the patient. Patient was life flighted through helicopter to [facility]. In meantime, 1 unit of single donor platelet transfusion in progress. New onset seizure, exact etiology unclear, probably related to metabolic derangements status post rapid response: Patient had CT head which does not show acute change or intracranial hemorrhage. There is chronic bilateral frontal lobe atrophy probably secondary to alcohol use although denies drinking heavy in the past. Neurologist has been consulted. EEG reported normal awake and drowsy EEG. No epileptiform discharges or electrographic seizures noted during the record. Patient is on Keppra 500 mg every 12 hourly 2. Right angulated, comminuted, intertrochanteric fracture, not reported on the first hip x-ray status post right cubital medullary nailing: second hip x-ray reported as Discussed with Dr. Cunha. Second postop day . On PT and OT. Discussed with the orthopedic surgeon as mentioned above 3. Hypertension, uncontrolled sinus tachycardia: Patient denies any history of coronary artery disease, CHF but he has not been following physician and also noncompliant; not taking antihypertensive medication. Blood pressure is controlled. On lisinopril 10 mg daily. Chest x-ray does not show acute change. 2D echo shows stage I diastolic dysfunction with EF 55%. 4. Increased anion gap metabolic acidosis with compensatory respiratory alkalosis, hypokalemia, hypocalcemia: This happened after seizure but not clear as it cause or effect of seizure. Calcium is replaced. Repeat ABG showed pH seven-point 3/50/205. Currently patient is on 2 L of oxygen. Patient has Severe hypocalcemia: 2 g calcium gluconate was given. K3.7. CO2 25, anion gap 9. Repeat calcium 6.9. 5 Fall, prior to admission most likely mechanical secondary to chronic right hip joint arthritis exacerbated with chronic lumbosacral degenerative spondylosis with rhabdomyolysis:Chronic lumbosacral pain, sciatica in nature with features of ankylosing spondylitis on thoracic and lumbar spine x-rays: Although patient does not know the diagnosis of ankylosing spondylitis but he has positive symptoms of and he was getting Enbrel for that. Positive fluid balance About 2600 mL. IV fluid normal saline is decreased to 100 mL/h. Monitor intake and output. CK got elevated after seizure. CK trending down PT and OT. Pain management and muscle relaxant. 7. Hemoconcentration with severe dehydration: IV fluid as mentioned above. 8 Chronic psoriasis and possible associated psoriatic arthritis: Follow-up catalogue and special products manager outpatient. 10: Thrombocytopenia, present on admission: Patient is admitted with platelet count 102. It dropped to 71,000. 5 units of platelet transfused prior to surgery. 6 seconds single donor platelet transfusion in progress when the patient was transferred. Bilateral SCDs. Pharmacological prophylaxis contraindicated Subjective: Patient seen and examined. Patient was able to stand up with the help of walker yesterday in the morning but today in the morning was called that he does not have sensation below nipple level. Not able to move his legs. Patient does not have bladder filling sensation but he had Louise catheter before that was removed just in the morning at 6:30 AM. Patient also does not have bowel movement for last 3-4 days, although on stool softeners. - Physical Exam General: Alert, Oriented x3, Cooperative HEENT: Atraumatic, PERRLA, EOMI, Normocephalic Neck: Supple, No JVD, Negative Carotid Bruits Lungs: Clear to auscultation, No rhonchi, No wheeze, No rales, Diminished Cardiovascular: Regular rate, Regular Rhythm, Normal S1, Normal S2, No murmurs Abdomen: Bowel Sounds Present, Soft, Non Tender, Distended - Mild gaseous distention, - - On rectal exam, mechanical sphincter muscle on bear down Extremities: Capillary Refill Less than 3 Seconds, Edema Skin: No rashes, No breakdown Musculoskeletal: No Tenderness to Palpation of Joints or Extremities Neurological: Cranial nerves II-XII grossly intact, - - No sensation to touch below the nipple level. No spontaneous motor movement of lower extremities including knee, ankle or toe level. Plantar reflex negative with no spraying of toes. Left lower extremity and right lower extremity falls, /. No deep tendon reflexes; 05/27 Psych/Mental Status: Normal Affect, Appropriate Vital Signs Temp Pulse Resp BP Pulse Ox 98.2 F 90 18 109/66 95 05/14/18 08:25 05/14/18 08:30 05/14/18 08:25 05/14/18 08:25 05/14/18 08:30 Oxygen Flow Rate (L/min) 1 Oxygen Delivery Method Room Air Weight: 179 lb 10.828 oz Body Mass Index (BMI) 28.2 Intake and Output for Last 24 Hours 05/12/18 05/13/18 05/14/18 23:59 23:59 23:59 Intake Total 4895 / 4895 4091 / 4091 1575 / 1575 Output Total 900 / 900 1650 / 1650 700 / 700 Balance 3995 / 3995 2441 / 2441 875 / 875 Laboratory Tests Past 24 Hrs 05/13/18 05/14/18 05/14/18 06:26 07:10 07:10 WBC 9.7 7.9 RBC 3.15 L 2.79 L Hgb 10.0 L 8.8 L Hct 30.5 L 26.4 L MCV 96.8 H 94.6 H MCH 31.7 31.5 MCHC 32.8 33.3 RDW 12.4 12.8 RDW Differential 42.1 44.2 H Plt Count 55 L 61 L MPV 11.0 11.0 Immature Gran % (Auto) 0.400 0.100 Neut % (Auto) 67.2 65.6 Lymph % (Auto) 17.3 L 16.3 L Terry % (Auto) 14.5 H 16.2 H Eos % (Auto) 0.4 1.5 Baso % (Auto) 0.2 0.3 Absolute Neuts (auto) 6.5 5.2 Absolute Lymphs (auto) 1.67 1.28 Total Counted Not Reportable Not Reportable Sodium 142 Potassium 3.5 Chloride 106 Carbon Dioxide 29.0 Anion Gap 7 BUN 11 Creatinine 0.68 L Estim Creat Clear Calc 95.52 Est GFR (MDRD) Af Amer 153 Est GFR (MDRD) Non-Af 127 BUN/Creatinine Ratio 16.3 Glucose 82 Calcium 6.9 L Total Creatine Kinase 1201 H Home Medications: Medications to take at Discharge Lisinopril/Hctz 1 tab PO DAILY 05/11/18 Omeprazole 20 mg PO BID 05/11/18 Primary Care Physician: Yang Saul MD [Primary Care Provider] - Medical Necessity - Tobacco Use Smoking Status: Current every day smoker Meaningful Use Info Meaningful Use Diagnoses (Choose all that apply): None applicable Code Visit Inpatient E&M: 35383 Disch Hosp
--- OUTSIDE RECORDS SUMMARY | 2018-08-12 16:07 | XMS RPT_ITS ---
:1955 Author Organization OHIP Support Name Relationship Address Phone D Unavailable Unavailable Unavailable Foster, Vida/Cristine Unavailable Unavailable + [place] [address] D Unavailable Unavailable Unavailable FOSTER, VIDA/CRISTINE Unavailable Unavailable + [place] [address] D Unavailable Unavailable Unavailable FOSTER, VIDA/CRISTINE Unavailable Unavailable + [place] [address] D Unavailable Unavailable Unavailable FOSTER, VIDA/CRISTINE Unavailable Unavailable + [place] [address] D Unavailable Unavailable Unavailable FOSTER, VIDA/CRISTINE Unavailable Unavailable + [place] [address] D Unavailable Unavailable Unavailable FOSTER, VIDA/CRISTINE Unavailable Unavailable + [place] [address] D Unavailable Unavailable Unavailable FOSTER, VIDA/CRISTINE Unavailable Unavailable + [place] [address] D Unavailable Unavailable Unavailable FOSTER, VIDA/CRISTINE Unavailable Unavailable + [place] [address] FOSTER, VIDA Unavailable Unavailable + Foster, Vida/ Cristine Unavailable Unavailable + D Unavailable Unavailable Unavailable FOSTER, VIDA/CRISTINE Unavailable Unavailable + [place] [address] D Unavailable Unavailable Unavailable FOSTER, VIDA/CRISTINE Unavailable X + [place] [address] D Unavailable Unavailable Unavailable FOSTER, VIDA/CRISTINE Unavailable Unavailable + [place] [address] D Unavailable Unavailable Unavailable FOSTER, VIDA/CRISTINE Unavailable Unavailable + [place] [address] D Unavailable Unavailable Unavailable FOSTER, VIDA/CRISTINE Unavailable Unavailable + [place] [address] D Unavailable Unavailable Unavailable FOSTER, VIDA/CRISTINE Unavailable Unavailable + [place] [address] D Unavailable Unavailable Unavailable LEWIS, VIDA/CRISTINE Unavailable Unavailable + [place] [address] Care Team Providers Name Role Phone JONG RICHARD Cordon Attending Unavailable OZ NICHOLS Attending Unavailable PROVIDER, UNKNOWN Referring Unavailable No, PCP Primary Care Unavailable PROVIDER, UNKNOWN Admitting Unavailable PROVIDER, UNKNOWN Attending Unavailable Beam, Yang Primary Care Unavailable Jered, Sudheer Admitting Unavailable Jered, Sudheer Attending Unavailable Alvarez, José Consulting Unavailable Guerline, Rios Consulting Unavailable Jered, Sudheer Admitting Unavailable Jered, Sudheer Attending Unavailable Beam, Yang Primary Care Unavailable Jered, Sudheer Consulting Unavailable Jered, Sudheer Admitting Unavailable Beam, Yang Primary Care Unavailable Guerline, Rios Consulting Unavailable Jered, Sudheer Attending Unavailable Jered, Sudheer Consulting Unavailable Jered, Sudheer Admitting Unavailable Jered, Sudheer Attending Unavailable Beam, Yang Primary Care Unavailable Alvarez, José Consulting Unavailable Guerline, Rios Consulting Unavailable Jered, Sudheer Consulting Unavailable Jered, Sudheer Admitting Unavailable Jered, Sudheer Attending Unavailable Beam, Yang Primary Care Unavailable Alvarez, José Consulting Unavailable Guerline, Rios Consulting Unavailable Jered, Sudheer Consulting Unavailable Alvarez, José Admitting Unavailable Beam, Yang Primary Care Unavailable Tereletsky, Naila Consulting Unavailable Elias Akers Attending Unavailable Felicitas, Luci Consulting Unavailable Alvarez, José Admitting Unavailable TereletskyNaila Attending Unavailable Beam, Yang Primary Care Unavailable Tereletsky, Naila Consulting Unavailable Alvarez, José Consulting Unavailable Alvarez, José Admitting Unavailable Ashelfah, Ghasem Attending Unavailable Beam, Yang Primary Care Unavailable Tereletsky, Naila Consulting Unavailable Ashelfah, Ghasem Consulting Unavailable Thierry Hartman Attending Unavailable Jered, Sudheer Referring Unavailable Alvarez, José Admitting Unavailable Ashelfah, Ghasem Attending Unavailable Beam, Yang Primary Care Unavailable Tereletsky, Naila Consulting Unavailable Ashelfah, Ghasem Consulting Unavailable Alvarez, José Admitting Unavailable Elias Akers Attending Unavailable Beam, Yang Primary Care Unavailable Tereletsky, Naila Consulting Unavailable Felicitas, Luci Consulting Unavailable Elias Akers Consulting Unavailable Tereletsky, Naila Referring Unavailable Alvarez, José Admitting Unavailable Felicitas, Luci Attending Unavailable Beam, Yang Primary Care Unavailable Tamara, Naila Consulting Unavailable Felicitas, Luci Consulting Unavailable Elias Akers Consulting Unavailable Jagdish Plummer Attending Unavailable Sudheer Lawton Referring Unavailable José Alvarez Admitting Unavailable KitElias santana Attending Unavailable Yang Saul Primary Care Unavailable Tereletsky, Naila Consulting Unavailable Felicitas, Luci Consulting Unavailable Kittobubba, Elias Consulting Unavailable Rohith Roldan Attending Unavailable PROBLEMS PROBLEMS DATE TYPE CONDITION / CODE ATTENDING STATUS SOURCE Unknown G89.29 - Other chronic Elias Akers Active [place] 9 pain / G89.29(ICD-10) [facility] Repository Unknown M54.2 - Cervicalgia / KitElias santana Active [place] 9 M54.2(ICD-10) [facility] Repository Unknown M54.9 - Dorsalgia, Elias Akers Active [place] 9 unspecified / Community M54.9(ICD-10) Hospital Repository Unknown M53.87 - Other Elias Akers Active [place] 9 specified Community dorsopathies, Hospital lumbosacral region / Repository M53.87(ICD-10) Admitting Postproc hematoma of a INKROTT, Active [facility] 8 Diagnosis ms structure fol a ms OZ System sys procedure / [facility] Repository M96.840(ICD-10) Admitting Complete lesion at INKROTT, Active [facility] 8 Diagnosis T7-T10, init / OZ System S24.113A(ICD-10) [facility] Repository Admitting Paraplegia, INKROTT, Active [facility] 8 Diagnosis unspecified / OZ System G82.20(ICD-10) [facility] Repository Admitting Acute posthemorrhagic INKROTT, Active [facility] 8 Diagnosis anemia / D62(ICD-10) [facility] Repository Admitting Unstable burst INKROTT, Active [facility] 8 Diagnosis fracture of T7-T8 OZ System vertebra, init for [facility] Repository clos fx / S22.062A(ICD-10) Admitting Thrombocytopenia, INKROTT, Active [facility] Diagnosis unspecified / [facility] System D69.6(ICD-10) [facility] Repository Admitting Ankylosing spondylitis INKROTT, Active [facility] 8 Diagnosis of unspecified sites OZ System in spine / [facility] Repository M45.9(ICD-10) Admitting Other chronic pain / INKROTT, Active [facility] 8 Diagnosis G89.29(ICD-10) OZ System [place] Repository Admitting Gastro-esophageal INKROTT, Active [facility] 8 Diagnosis reflux disease without OZ System esophagitis / [facility] Repository K21.9(ICD-10) Admitting Essential (primary) INKROTT, Active [facility] 8 Diagnosis hypertension / OZ System I10(ICD-10) [facility] Repository Admitting Encounter for INKROTT, Active [facility] 8 Diagnosis immunization / OZ System Z23(ICD-10) [facility] Repository Admitting Unspecified INKROTT, Active [facility] 8 Diagnosis convulsions / OZ System R56.9(ICD-10) [facility] Repository Admitting Oth disrd of bone INKROTT, Active [facility] 8 Diagnosis density and structure, OZ System unspecified site / [facility] Repository M85.80(ICD-10) Admitting Arthropathic INKROTT, Active [facility] 8 Diagnosis psoriasis, unspecified OZ System / L40.50(ICD-10) [facility] Repository Admitting Nicotine dependence, INKROTT, Active [facility] 8 Diagnosis unspecified, OZ System uncomplicated / [facility] Repository F17.200(ICD-10) Admitting Fall on same level, INKROTT, Active [facility] 8 Diagnosis unspecified, initial OZ System encounter / [facility] Repository W18.30XA(ICD-10) Unknown R00.0 - Tachycardia, Jagdish Plummer unspecified / Community R00.0(ICD-10) Hospital Repository Unknown R94.31 - Abnormal Jagdish Plummer electrocardiogram Community [ECG] [EKG] / Hospital R94.31(ICD-10) Repository Unknown I10 - Essential Plummer, Jagdish Active [place] 9 (primary) hypertension Community / I10(ICD-10) Hospital Repository Active Unknown / UNK(Unknown) RICHARD SUNSHINE Active [place] 8 J [facility] Repository PROCEDURES PROCEDURES No Procedure Records FoundRESULTS RESULTS CBC W/DIFF, AUTOMATED Collected: 06/14/2018 Status: F Source: [place] 6:30 AM [facility] [place] CODE TESTS RESULT OUT OF RANGE REFERENCE UNITS LAB L100.1000 4.4-11.0 K/mm3 Normal WBC 7.1 LAB L100.1200 4.6-6.2 M/mm3 Low RBC 4.03 LAB L100.1300 13.0-16.5 g/dl Low HGB 11.7 LAB L100.1400 40-54 % Low HCT 38.0 LAB L100.1500 80-94 fL High MCV 94.3 LAB L100.1600 27.0-32.0 pg Normal MCH 29.0 LAB L100.1700 32-36 g/gl Low MCHC 30.8 LAB L100.1810 11.6-14.6 % High RDW CV 15.0 LAB L100.1820 35.1-43.9 fl High RDW SD 51.9 LAB L100.1900 150-450 K/mm3 Low PLT 72 LAB L100.2000 6.2-12.0 fl Normal MPV 11.0 LAB L100.2100 47-70 % Normal NEUT% 51.1 LAB L100.2200 19-41 % Normal LY% 33.3 LAB L100.2300 0-10 % High MONO% 11.5 LAB L100.2400 0-5 % Normal EO% 3.1 LAB L100.2500 0-1 % Normal BASO% 0.4 LAB L100.2550 0.0-0.9 % Normal IM GRAN % 0.600 Result Comment: IG% - Immature Granulocytes (promyelocytes, myelocytes and metamyelocytes) > 1% indicates that a LEFT SHIFT is Present. LAB L100.2620 2.0-7.7 X10 3/uL Normal Absolute Neut 3.7 LAB L100.2720 0.83-4.51 X10 3/ul Normal Absolute Lymph 2.38 Performed By: #### L100.0100 #### [facility] [address] [place], [place], [id number] COMPREHENSIVE METABOLIC Collected: 06/14/2018 Status: F [facility] [place] TYPE CODE TESTS RESULT OUT OF RANGE REFERENCE UNITS LAB L501.0100 74-106 mg/dL Normal GLU 93 Result Comment: Please note revised GLUCOSE reference range effective 2017. LAB L501.1000 7-18 mg/dL High BUN 48 LAB L501.1100 0.70-1.30 mg/dL Normal CREAT,SERUM 0.74 Result Comment: The validity of the calculated GFR AND GFRAA in patients over 70 years has not been determined. Clinical correlation is essential. LAB L501.1110 >60 mL/min Normal EST GFR 115 Result Comment: Non- GFR Calc LAB L501.1115 >60 mL/min Normal EST GFR - AA 139 Result Comment: GFR Calc LAB L501.1300 10-20 RATIO High BUN/CRE 65.1 LAB L501.1500 6.4-8.2 g/dL T Normal PROT 7.2 LAB L501.1800 3.2-5.0 g/dL Low ALB 2.7 LAB L501.1950 2.2-4.2 g/dL High GLOB 4.5 LAB L501.2000 0.9-2.4 RATIO Low A/G 0.6 LAB L501.2200 8.5-10.1 mg/dL CA Normal 8.5 LAB L501.4100 15-37 U/L Normal AST 27 LAB L501.4305 45-117 U/L High ALK P 390 LAB L501.4405 16-61 U/L Normal ALT 28 LAB L501.4600 0.20-1.00 mg/dL T Normal BILI 0.70 LAB L501.5300 136-145 mmol/L NA Normal 137 LAB L501.5600 3.5-5.1 mmol/L K Normal 4.0 LAB L501.5900 98-107 mmol/L CL Normal 98 LAB L501.6100 21.0-32.0 mmol/L Normal CO2 31.0 LAB L501.6200 5-15 Normal GAP 8 Performed By: #### L500.4050, L500.4100 #### [facility] [address] [place], [place], [id number] LIPID PROFILE Collected: 06/14/2018 Status: F Source: [place] 6:30 AM [facility] [place] [place] TYPE CODE TESTS RESULT OUT OF RANGE REFERENCE UNITS LAB L501.4900 200 mg/dL Normal CHOL 153 Result Comment: <200 mg/dL Desirable 200-240 mg/dL Borderline >240 mg/dL High Risk LAB L501.5000 mg/dL Normal TRIG 126 Result Comment: The drugs N-Acetylcysteine and Metamizole may falsely depress this assay. Serum Triglycerides Reference Interval Normal <150 mg/dL Borderline high 150 - 199 mg/dL High 200 - 499 mg/dL Very High > or = 500 mg/dL LAB L501.6400 mg/dL Low HDL 28 Result Comment: The drugs N-Acetylcysteine and Metamizole may falsely depress this assay. Reference Range HDL <40 mg/dL Low HDL Cholesterol HDL >or= 60 mg/dL High HDL Cholesterol LAB L501.6500 0-130 mg/dL Normal LDL 100 LAB L501.6600 5-40 mg/dL Normal VLDL 25 Performed By: #### L500.4050, L500.4100 #### [facility] [address] [place], [address] CBC-COMPLETE BLOOD CNT Collected: 06/10/2018 Status: F Source: [facility] NO DIFF 5:45 AM [facility] [place] TYPE CODE TESTS RESULT OUT OF RANGE REFERENCE UNITS LAB L100.1000 4.4-11.0 K/mm3 Normal WBC 7.3 LAB L100.1200 4.6-6.2 M/mm3 Low RBC 3.65 LAB L100.1300 13.0-16.5 g/dl Low HGB 10.9 LAB L100.1400 40-54 % Low HCT 35.4 LAB L100.1500 80-94 fL High MCV 97.0 LAB L100.1600 27.0-32.0 pg Normal MCH 29.9 LAB L100.1700 32-36 g/gl Low MCHC 30.8 LAB L100.1810 11.6-14.6 % High RDW CV 15.1 LAB L100.1820 35.1-43.9 fl High RDW SD 51.6 LAB L100.1900 150-450 K/mm3 Low PLT 85 LAB L100.2000 6.2-12.0 fl Normal MPV 10.6 Performed By: #### L100.0500 #### [facility] [address] [place], [address] DISCHARGE SUMMARY Observed: 06/09/2018 Status: C Source: [place] 7:29 PM [facility] [place] [facility] Medical Records Department [address] [place] [address] Discharge Summary 06/09/18 1522 MR#: [id number] Acct: [id number] Name: KAVON HEARN Rep #: [id number] : 1955 62 From: Fatou Vargas GREASE REFINER OPERATOR-C PCP: Yang Saul MD Status: ADM IN Y Location: [place] [address] ADDENDUM by Jaqueline Falcon MD on 06/09/18 at 192 I have personally examined the patient at bedside. Please see ULISES Vargas's note as below for further complete details. I have discussed the management plan for the patient in detail with ULISES Vargas and please see the plan as noted below. Staffed in team meeting, all questions were answered. [facility] on Wednesday[facility]/10/18. Further medical management per hospitalist recommendation. Tolerated therapies well. Follow with PCP, Orthopedic surgery (s/p right hip surgery), spine surgery- neurosurgery (s/p spinal epidural hematoma evacuation) and Hematology (for thrombocytopenia evaluation and management) as outpatient or from SNF. 06/09/181928 <Electronically signed by Renetta Falcon MD> Date Renetta Falcon MD cc: ULISES Vargas; Jaqueline Falcon MD; Yang Saul MD * Addendum Rehab Discharge Summary DATE OF ADMISSION: 05/21/18 DATE OF DISCHARGE: 06/10/18 - Rehab Diagnosis R hip Fracture, Laminectomy Patient Problems: Active and Suspected Problems Thrombocytopenia (Acute) - Physical Exam General: Alert, Oriented x3, Cooperative HEENT: Atraumatic, PERRLA, EOMI, Normocephalic Neck: Supple, No JVD, Negative Carotid Bruits Lungs: Clear to auscultation, Normal air movement Cardiovascular: Regular rate, No murmurs Abdomen: Bowel Sounds Present, Soft, Non Tender Extremities: No edema, Capillary Refill Less than 3 Seconds Skin: No rashes, No breakdown Musculoskeletal: No Tenderness to Palpation of Joints or Extremities Neurological: Cranial nerves II-XII grossly intact Psych/Mental Status: Normal Affect, Appropriate, Alert and oriented to time, place, person, mood and affect Vital Signs Temp Pulse Resp BP Pulse Ox 97.7 F L 88 18 96/65 97 06/09/18 08:03 06/09/18 08:03 06/09/18 08:03 06/09/18 08:03 06/09/18 08:03 Oxygen Delivery Method Room Air Weight: 75 kg Body Mass Index (BMI) 30.8 Intake and Output for Last 24 Hours Intake Total 2480 / 2480 3170 / 3170 2540 / 2540 Output Total 1600 / 1600 3250 / 3250 1999 / 1999 Balance 880 / 880 -80 / -80 540 / 540 Laboratory Tests Past 24 Hrs WBC 7.8 RBC 3.75 L Hgb 11.3 L Hct 36.2 L MCV 96.5 H MCH 30.1 MCHC 31.2 L RDW 15.4 H RDW Differential 52.1 H Plt Count 95 L MPV 10.4 Active Medications Bisacodyl (Dulcolax) 10 mg RECTAL .PRN X 1 PRN PRN Reason: Constipation Calamine/Phenol (Calmoseptine Ointment) 1 applic TOPICAL TID [facility]; Protocol Last Admin: 06/09/18 13:11 Dose: 1 applicatio Emollient Ointment (Eucerin Intensive Repair) 1 applic TOPICAL BID@2200,0600 [facility]; Protocol Last Admin: 06/09/18 06:04 Dose: 1 applicatio Ergocalciferol (Vitamin D) 50,000 unit PO Q7D [facility] Last Admin: 06/05/18 07:58 Dose: 50,000 unit Escitalopram Oxalate (Lexapro) 10 mg PO DAILY [facility] Last Admin: 06/09/18 08:54 Dose: 10 mg Fentanyl (Duragesic Patch) 25 mcg TRANSDERM. Q3D [facility] Last Admin: 06/09/18 14:24 Dose: 25 mcg Gabapentin (Neurontin) 100 mg PO TIDCM [facility] Last Admin: 06/09/18 11:33 Dose: 100 mg Guaifenesin (Mucinex) 600 mg PO BID [facility] Last Admin: 06/09/18 08:54 Dose: 600 mg Hydrochlorothiazide (Hctz) 25 mg PO DAILY [facility] Lisinopril (Zestril) 20 mg PO DAILY [facility] Last Admin: 06/09/18 08:21 Dose: Not Given Magnesium Hydroxide (Milk Of Magnesia) 30 ml PO .PRN X 1 PRN PRN Reason: Constipation [facility]it[facility] ([facility]itamin) [facility] Last Admin: 06/09/18 08:55 Dose: 1 tablet Nutritional Formula (Mac - Welcome Flavor) [facility] Last Admin: 06/09/18 08:54 Dose: 1 packet Oxycodone HCl (Oxyir) 5 mg PO Q6H PRN PRN PRN Reason: PAIN Last Admin: 06/05/18 21:17 Dose: 5 mg Pantoprazole Sodium (Protonix) 20 mg PO DAILY [facility] Last Admin: 06/09/18 08:54 Dose: 20 mg Senna/Docusate Sodium (Senokot-S, Marcie-Colace) 2 tablet PO BID PRN PRN Reason: CONSTIPATION Tamsulosin HCl (Flomax) 0.4 mg PO DAILY@1730 [facility] Last Admin: 06/08/18 17:03 Dose: 0.4 mg Tizanidine HCl (Zanaflex) 4 mg PO Q8H PRN PRN PRN Reason: MUSCLE SPASM Last Admin: 06/08/18 22:15 Dose: 4 mg Home Medications: Medications to take at Discharge Omeprazole 20 mg PO DAILY 05/11/18 Ergocalciferol [Vitamin D] 50,000 unit PO Q7D 05/21/18 Guaifenesin [Mucinex] 600 mg PO BID 05/21/18 Lisinopril/Hydrochlorothiazide [Zestoretic 20/25 Tablet] 1 tablet PO DAILY 05/21/18 Multivitamins,Therapeutic [Multivitamin] 1 tablet PO DAILY 05/21/18 Bisacodyl [Dulcolax] 10 mg RECTAL .PRN X 1 PRN suppos. 06/09/18 Escitalopram Oxalate [Lexapro] 10 mg PO DAILY #30 tab 06/09/18 Gabapentin [Neurontin] 1 cap PO TID #90 cap 06/09/18 Hydrochlorothiazide [Hctz] 25 mg PO DAILY tablet 06/09/18 Lisinopril [Zestril] 20 mg PO DAILY tablet 06/09/18 Magnesium Hydroxide [Milk Of Magnesia] 30 ml PO .PRN X 1 PRN udc 06/09/18 Menthol/Lanolin/Calamine/Znox [Calmoseptine Ointment] 1 applic TOPICAL TID tube 06/09/18 Nutritional Supplement [Mac - ORANGE FLAVOR] 1 packet PO BIDCM packet 06/09/18 Oxycodone [Oxyir] 5 mg PO Q6H PRN PRN 7 Days #28 tab 06/09/18 Tamsulosin HCl [Flomax] 0.4 mg PO DAILY@1730 capsule 06/09/18 Tizanidine HCl [Zanaflex] 4 mg PO Q8H PRN PRN #30 tab 06/09/18 fentaNYL patch [Duragesic patch] 25 mcg TRANSDERM. Q3D 6 Days #2 patch 06/09/18 Following Prescrptions Were Given to Patient: Oxycodone [Oxyir] 5 mg PO Q6H PRN PRN 7 Days #28 tab PRN Reason: Pain Tizanidine HCl [Zanaflex] 4 mg PO Q8H PRN PRN #30 tab PRN Reason: Muscle Spasm Escitalopram Oxalate [Lexapro] 10 mg PO DAILY #30 tab fentaNYL patch [Duragesic patch] 25 mcg TRANSDERM. Q3D 6 Days #2 patch Gabapentin [Neurontin] 1 cap PO TID #90 cap Primary Care Physician: Yang Saul MD [Primary Care Provider] - Please Follow Up With: Salima Roque MD When: Wednesday Rehab Course The patient is a 62 year old M with a history of ankylosing spondylitis and a long history of chronic back pain in his mid back, he suffered a mechanical fall on 05/10/2018, requiring ORIF of his right hip on 05/12/18. Subsequently on 05/14/18 he was diagnosed with an epidural hematoma at T8, was transported to [facility] and underwent evacuation by orthospine on 05/15/18. He says his main complaint now is he continues to experience back pain which is similar but worse than his previous back pain. The pain however is not changed since his initial injury on 05/10. He also has weakness in his lower extremities and loss of sensation which has not improved as well as urinary retention and constipation. He is nonweightbearing. He says his arms are unaffected. He is frustrated by his condition and would like increase in his pain medications. We also discussed repeating CT of his thoracic spine to evaluate for recurrence of his hematoma which he agrees to. While in the Rehab Unit (RU) his other medical conditions were monitored. While in the RU he improved with therapy and gained strength. Summary of Care: - Physical therapy for transfers, he is nonweightbearing. - Occupational Therapy for ADLs - PRN analgesics - Bowel protocol - DVT prophylaxis: Transfer orders recommended Lovenox however given his thoracic hematoma and ongoing back pain we will limit his DVT prophylaxis to SCDs. Given platelet count (149)will continue to hold on starting Lovenox at this time, will re-address in the next day or two. - Encourage alcohol abstention - Continue antihypertensives - Proton pump inhibitor - Urinary retention: Louise catheter for now => Louise was d/c had high residual louise replaced consulted Urology - Constipation: Bowel protocol - Back pain: Repeat CT of his thoracic spine to increase fentanyl patch - May removed janae from right hip 2 weeks after surgery - janae removed, incision is well approximated is C/D, no redness or edema noted. - MRI brain -> shows resolution of PRES will not restart Keppra at this time - Get out of bed and into a chair an hour in the morning and an hour in the afternoon Summary of therapy Sessions: With Physical therapy, he is a moderate assist of one for turning in the bed or any bed mobility. He is a 2 persons assist for transfers using the sliding board, movement is painful. He does have some sensation returning to his legs. With Occupational therapy, he is able to do his personal care, feeding and grooming at set up level as long as he is in an upright sitting position. He is minimal assist for upper body dressing. He is total assist for lower body bathing, and dressing. With Nursing, his Louise was removed and replaced, he was to urinate some but still had high residuals or 850cc, and 650cc was straight cath both times. Urology was consulted he is currently on Flomax. He is also having muscle spasms in his lower back area was started him on Flexeril 4mg. Clarion were removed from his right hip. Clarion were removed on 06/05 from his neck area. Meaningful Use Info Meaningful Use Diagnoses (Choose all that apply): None applicable 06/09/18 1539 <Electronically signed by Fatou Vargas GREASE REFINER OPERATOR-C> Date Fatou Vargas GREASE REFINER OPERATOR-C 06/09/181927<Electronically signed by Renetta Falcon MD> Cosigner Signature (if applicable): Date Renetta Falcon MD CC: ULISES Vargas; Jaqueline Falcon MD; Yang Saul MD Addendum DISCHARGE INSTRUCTION Observed: 06/09/2018 Status: F Source: [place] 3:39 PM [facility] [place] [facility] Medical Records Department [address] [place] [address] Instructions for Home/Discharge Instructions 06/09/18 1527 MR#: [id number] Acct: [id number] Name: KAVON HEARN Rep #: [id number] : 1955 62 From: Fatou ALMEIDAC PCP: Yang Saul MD Status: ADM IN - Discharge Diagnoses Current Active Problems: Current Active and Chronic Problems Thrombocytopenia (Acute) Reason(s) for Visit for Discharge Instructions: Right hip fracture, Laminectomy You will use the following diet at home:: Regular Your food should be the consistency of: Regular Your liquids should be the consistency of: Regular/Thin Discharge Activity: May Not Drive, May not drive while taking narcotic pain medications., May Shower Weight Bearing Status: Weight bearing as tolerated Call your doctor if you observe: Fever of 101 or Higher, Coldness, Increased Pain, Numbness or Tingling, Change in Color, Inability to urinate, Inability to have a bowel movement, Using more than one pad per hour, Shortness of breath, Dizziness, Fainting spells, Swelling in the ankles, Chest pain, Prolonged hiccoughing, Increased palpitations (irregular heartbeat), Calf discomfort, Uncontrolled pain Allergies/Adverse Reactions: Allergies wool Allergy (Verified 05/22/18 15:56) Rash Medications to take at Discharge Omeprazole 20 mg PO DAILY 05/11/18 Ergocalciferol [Vitamin D] 50,000 unit PO Q7D 05/21/18 Guaifenesin [Mucinex] 600 mg PO BID 05/21/18 Lisinopril/Hydrochlorothiazide [Zestoretic /25 Tablet] 1 tablet PO DAILY 05/21/18 Multivitamins,Therapeutic [Multivitamin] 1 tablet PO DAILY 05/21/18 Bisacodyl [Dulcolax] 10 mg RECTAL .PRN X 1 PRN suppos. 06/09/18 Escitalopram Oxalate [Lexapro] 10 mg PO DAILY #30 tab 06/09/18 Gabapentin [Neurontin] 1 cap PO TID #90 cap 06/09/18 Hydrochlorothiazide [Hctz] 25 mg PO DAILY tablet 06/09/18 Lisinopril [Zestril] 20 mg PO DAILY tablet 06/09/18 Magnesium Hydroxide [Milk Of Magnesia] 30 ml PO .PRN X 1 PRN udc 06/09/18 Menthol/Lanolin/Calamine/Znox [Calmoseptine Ointment] 1 applic TOPICAL TID tube 06/09/18 Nutritional Supplement [Mac - ORANGE FLAVOR] 1 packet PO BIDCM packet 06/09/18 Oxycodone [Oxyir] 5 mg PO Q6H PRN PRN 7 Days #28 tab 06/09/18 Tamsulosin HCl [Flomax] 0.4 mg PO DAILY@1730 capsule 06/09/18 Tizanidine HCl [Zanaflex] 4 mg PO Q8H PRN PRN #30 tab 06/09/18 fentaNYL patch [Duragesic patch] 25 mcg TRANSDERM. Q3D 6 Days #2 patch 06/09/18 The following prescriptions were given: Oxycodone [Oxyir] 5 mg PO Q6H PRN PRN 7 Days #28 tab PRN Reason: Pain Tizanidine HCl [Zanaflex] 4 mg PO Q8H PRN PRN #30 tab PRN Reason: Muscle Spasm Escitalopram Oxalate [Lexapro] 10 mg PO DAILY #30 tab fentaNYL patch [Duragesic patch] 25 mcg TRANSDERM. Q3D 6 Days #2 patch Gabapentin [Neurontin] 1 cap PO TID #90 cap Primary Care Physician: Yang Saul MD [Primary Care Provider] - Test Results: Test results from this visit will be discussed in further detail at your follow-up appointment, if applicable. Please Follow Up With: Salima Roque MD When: Wednesday Proposed Discharge Date: 06/10/18 06/09/18 1539 <Electronically signed by Fatou Vargas NP-C> Date Fatou Vargas GREASE REFINER OPERATOR-C CC: Yang Saul MD; Naila Mcdonald DO; Luci Polk NP Signed TRANSFER TO [facility] Observed: 06/09/2018 Status: F Source: [facility] 11:20 AM [facility] [place] [facility] Medical Records Department [address] [place] [address] Transfer to [facility] MR#: [id number] Acct: [id number] Name: KAVON HEARN Rep #: [id number] : 1955 62 From: Fatou ALMEIDAC PCP: Yang Saul MD Status: ADM IN KAVON HEARN [id number] (Patient) (Health Ins. Claim No.) (Day of Discharge to Facility) Certification of patient admission REQUIRED AT TIME OF ADMISSION. I CERTIFY THAT [facility] SERVICES ARE REQUIRED TO BE GIVEN ON AN IN-PATIENT BASIS BECAUSE OF THE ABOVE NAMED PATIENT'S NEED FOR [facility] CARE ON A CONTINUING BASIS FOR THE CONDITION(S) FOR WHICH HE/SHE WAS RECEIVING IN-PATIENT HOSPITAL SERVICES PRIOR TO HIS/HER TRANSFER TO THE [facility]. 06/08/18 1633 <Electronically signed by Fatou Vargas NP-C> Date Fatou Vargas GREASE REFINER OPERATOR-C ADDENDUM by Jaqueline Falcon MD on 06/09/18 at 1120 Code Visit I have personally examined the patient at bedside. Please see GREASE REFINER OPERATOR Fatou Vargas's note as below for further complete details. I have discussed the management plan for the patient in detail with GREASE REFINER OPERATOR Fatou Vargas and please see the plan as noted below. Staffed in team meeting, all questions were answered. Patient to be [facility] on Wednesday06/10/18. Further medical management per hospitalist recommendation. Tolerated therapies well. Follow with PCP, Orthopedic surgery (s/p right hip surgery), spine surgery- neurosurgery (s/p spinal epidural hematoma evacuation) and Hematology (for thrombocytopenia evaluation and management) as outpatient or from SNF. Inpatient E AND M: [id number] Init Hosp L3 06/09/18 1120 <Electronically signed by Renetta Falcon MD> Date Renetta Falcon MD cc: Yang Saul MD; Naila Mcdonald DO; Luci Polk NP * Signed - Diet 05/21/18 12:31 Diet: Regular Diet - Wound(s) proximal right hip Wound Type: Surgical Incision medial right hip Wound Type: Surgical Incision distal right hip Wound Type: Surgical Incision BACK Wound Type: Surgical Incision left outer heel Wound Type: Pressure Injury Dressing Change: Mepilex applied left buttock Wound Type: Abrasion left upper arm Wound Type: scratch - Therapies Weight Bearing: Weight bearing as tolerated Extremity Affected:: Bilateral Lower Physical Therapy: Eval and Treat Occupational Therapy: Eval and Treat - Allergies/Procedures Done in Hospital Allergies/Adverse Reactions: Allergies wool Allergy (Verified 05/22/18 15:56) Rash - Type of Care/Length of Stay Estimated LOS: More Than 30 Days Type of Care Needed: Skilled Rehab Potential: Good Prognosis: Good - Additional Orders/Day of Discharge Day of Discharge: 06/10/18 - Dietary and Speech Recommendations Dietitian Recommendations/Changes: Rec diet change to Regular/no added salt. - Follow Up Care Primary Care Physician: Yang Saul MD [Primary Care Provider] - Please Follow Up With: Salima Roque MD When: Wednesday06/08/18 1633 <Electronically signed by Fatou ALMEIDAC> Date Fatou MARTINEZ CC: Yang Saul MD; Naila Mcdonald DO; Luci Polk NP Signed CBC-COMPLETE BLOOD CNT Collected: 06/09/2018 Status: F Source: [facility] NO DIFF 5:15 AM [facility] CODE TESTS RESULT OUT OF RANGE REFERENCE UNITS LAB L100.1000 4.4-11.0 K/mm3 Normal WBC 7.8 LAB L100.1200 4.6-6.2 M/mm3 Low RBC 3.75 LAB L100.1300 13.0-16.5 g/dl Low HGB 11.3 LAB L100.1400 40-54 % Low HCT 36.2 LAB L100.1500 80-94 fL High MCV 96.5 LAB L100.1600 27.0-32.0 pg Normal MCH 30.1 LAB L100.1700 32-36 g/gl Low MCHC 31.2 LAB L100.1810 11.6-14.6 % High RDW CV 15.4 LAB L100.1820 35.1-43.9 fl High RDW SD 52.1 LAB L100.1900 150-450 K/mm3 Low PLT 95 LAB L100.2000 6.2-12.0 fl Normal MPV 10.4 Performed By: #### L100.0500 #### [facility] [address] [place], [address] CONSULTATION Observed: 06/07/2018 Status: F Source: [facility] 5:00 PM [facility] [place] [facility] Medical Records Department [address] [place] [address] Consultation 06/06/18 1822 MR#: [id number] Acct: [id number] Name: KAVON HEARN Rep #: [id number] : 1955 62 From: Luci Polk GREASE REFINER OPERATOR-C PCP: Yang Saul MD Status: ADM IN Y Location: LG072-6 Subjective Date of Service:: 06/06/18 Chief Complaint: Thrombocytopenia History of Present Illness: Mr. Kavon Mazariegos is a very pleasant 62-year-old man with a past medical history significant for chronic back pain who suffered a mechanical fall on 05/10/2018, requiring ORIF of his right hip on 05/12/2018. Later experienced acute thoracic cord compression/nerve impingement secondary to epidural hematoma from T4-T10 level a right angulated comminuted and impacted fracture of the right femur. Patient was transferred referred to [facility], underwent evacuation on 05/15/2018 and later transferred back to [facility] rehab unit. Hematology consult requested to determine if DVT prophylaxis is contraindicated in light of recent thrombocytopenia. Upon assessment patient is sitting upright in bed. Complaints include urinary retention and constipation as he is nonweightbearing. States that he has never been told his platelet count has ever been low previously and has never experienced any episodes of overt bleeding or abnormal bruising. Denies any history of liver dysfunction. Although patient history alludes to EtOH abuse, patient verbalizes he does not utilize alcohol and quit smoking approximately 5 months ago. Patient denies a family history of bleeding or clotting disorders. 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) Past Medical/Surgical History: Past Medical History - Most Recent Inpatient Visit Past Medical History Start: 05/21/18 12:26 Text: Status: Complete Freq: ONCE Protocol: Document 05/21/18 12:26 BL (Rec: 05/21/18 13:32 [id number]) BMI Required to complete PMH What is Patient's BMI 30.8 Past Medical History Unable History Recalled No Query Text:Pt Unable/Family Not Present Neurologic Medical History Hx Stroke/TIA No Hx Dementia/Alzheimer's No Hx Parkinson's Disease No Hx Seizures Yes Hx Multiple Sclerosis No Hx Migraines No Cardiac Medical History VTE Present on Admission No Hx of Deep Vein Thrombosis/VTE/PE No Hx Hypertension Yes Hx Chest Pain/Angina No Hx Heart Attack No Hx Cardiac Surgery/Stents/Etc. No Hx Heart Failure No Hx Irregular Heartbeat and/or Afib Yes Hx Anticoagulant Therapy Yes Query Text:(Coumadin, Aspirin, Plavix, Xarelto, etc.) Hx Pain in Legs when Walking/Leg Cramps No Respiratory Medical History Hx COPD No Hx Emphysema No Smoking Status Current every day smoker Hx Tobacco Use in last 12 months Yes Sent to [facility] Yes Hx of Pipe Smoking No Hx of Cigar Smoking No Hx Sleep Apnea No Do you snore loudly (louder than talking No or can be heard through closed doors)? Do you often feel tired/ fatigued/ No sleepy during daytime? Has anyone observed you stop breathing No during sleep? STOP Results Negative GI Medical History Hx Ulcer No Hx Hepatitis No Hx Cirrhosis No Hx GI Bleed No Hx Unplanned Weight Loss No Genitourinary Medical History Indwelling Catheter in Place on Arrival/ Yes Admission Hx Renal Disease No Hx Dialysis No Musculoskeletal History Hx Arthritis Yes Hx Rheumatoid Arthritis No Endocrine Medical History Hx Diabetes No Hx Thyroid Disease No Hematologic Medical History Hx of Blood Transfusion Yes Hx of Transfusion in last 3 Months Yes Date of Last Transfusion (if within last 05/16/18 3 months) Ever experience any problems with No transfusion(s)? Hx of Preganancy in last 3 Months N/A Nurse Filling Out Transfusion AND BLINHOSS Questions: Date: 05/21/18 Time: 13:31 Psycho/Social Medical History Hx Depression No Hx Anxiety No Hx Behavior Disorder No Hx Alcohol Use Yes Hx Substance Use No Other Medical History Hx Blood Disorders No Hx Anemia No Hx Cancer No Hx Drug Resistant Organism No Wound/Pressure Injury Present on Arrival No /Admission Query Text:If yes, chart assessment in Shift/Clinical Findings Central Line/PICC/VAD Present on Arrival No /Admission Antibiotics within last 7 days? No Methicillin Resistant Staphylococcus aureus Screening Active MRSA No Risk for Readmission Number of Risk Factors 3 At Risk for Readmission Patient is At Risk For Readmission Patient is eligible for Call Back Y Maternal Family History: No pertinent history - Social History Smoking Status: Current every day smoker Allergies/Adverse Reactions: Allergy/AdvReac Type Severity Reaction Status Date / Time wool Allergy Rash Verified 05/22/18 15:56 Review of Systems Constitutional:: Reports: Weakness. Denies: Fever, Sweats, Weight loss, Appetite change, Chills Cardiovascular:: Denies: Chest pain, Palpitations, Dyspnea on exertion, Orthopnea, PND, Shortness of breath Respiratory: Denies: Cough, Hemoptysis, Shortness of Breath, Wheezing Gastrointestinal:: Reports: Constipation. Denies: Abdominal pain, Nausea, Vomiting, Diarrhea, Hematochezia Genitourinary: Reports: - - Urinary retention. Denies: Dysuria, Hematuria, Flank pain Musculoskeletal:: Reports: Back pain, - - Paralysis bilateral lower extremities. Denies: Myalgia, Arthralgia Skin: Denies: Rash, Skin Changes, Wounds Neurological:: Denies: Headache, Dizziness, Numbness, Tingling, Visual changes, Tinnitus, Hearing loss Psychiatric: Denies: Anxiety, Depression, Homicidal Ideations, Suicidal Ideations Vital Signs Height 5 ft 4 in Weight: 165 lb 5.547 oz Weight in Pounds 165.3 lbs Pulse Ox 96 - Physical Exam General: Alert, Oriented x3, No apparent distress HEENT: Atraumatic, PERRLA, EOMI, Normocephalic Oropharynx:: Negative for: Dry mucosa, Ulcerated lesions Neck:: Supple, Trachea midline. Negative for: JVD, bilateral Cardiac:: Regular rate, Regular rhythm, Normal S1, Normal S2. Negative for: Murmur Lungs: Clear to auscultation, Excusion symmetrical. Negative for: Rhonchi, Wheezes Abdomen:: Bowel sounds x 4, Soft, Non-tender, Non-distended. Negative for: Hepatosplenomegaly Extremities:: Negative for: Cyanosis, Edema Skin:: Negative for: Lesions, Rash, Petechiae, Ecchymosis Psychiatric:: Appropriate affect, Euthymic Lymphatics:: Axillary lymphadenopathy. 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 Mild chronic microvascular ischemic changes. Electronically Signed: Natividad Donaldson MD at 17:27 EST Tel , Service support , ADDENDUM: 05/28/18 1854 Hip/Pelvis X-Ray 05/26/18 14:47 IMPRESSION: 1. No acute process. 2. Status post ORIF of the right hip. 3. Mild degenerative changes of the hips and pelvis. Electronically Signed: Natividad Donaldson MD at 16:42 EST Tel , Service support , Thoracic Spine CT 05/27/18 13:15 IMPRESSION: Stable examination. Electronically Signed: Venkata Franklin MD at 14:11 EST Tel [phone], Service support , Assessment and Plan Mr. Kavon Hearn is a pleasant 62-year-old man the past history of chronic back pain who experienced a fall which required ORIF of right hip 05/12/18 and consequent epidural hematoma in his thoracic spine status post evacuation laminectomy 05/15/18. Of late found to be thrombocytopenic. 1. Thrombocytopenia as evidenced by platelet count of 124,000. Reviewing previous trends his platelet count was 102,000 upon admission and 61,000 a day prior to laminectomy. AST and alk phos are mildly elevated-presumably associated with history of EtOH use, although patient is adamant he does not utilize alcohol. Thrombocytopenia could be associated with liver dysfunction. From a hematologic perspective prophylactic Lovenox is not contraindicated in the setting of mild thrombocytopenia (124,000). In fact as long as platelets remain above 50,000 and in the absence of active bleeding, Lovenox can be continued. Thank you for allowing us to participate in this patient's care. Luci Polk, MSN, CARTON PACKAGING MACHINE OPERATOR, AOCNP Medications: Prescriptions This Visit Medication Instructions Recorded Ergocalciferol [Vitamin D] 50,000 unit PO Q7D 05/21/18 Gabapentin [Neurontin] 1 cap PO TID 05/21/18 Guaifenesin [Mucinex] 600 mg PO BID 05/21/18 Lisinopril/Hydrochlorothiazide 1 tablet PO DAILY 05/21/18 Primary Care Provider: Yang Saul MD Referring Provider: - Problem List (1) Thrombocytopenia Status: Acute 06/07/18 1700 <Electronically signed by Luci ALMEIDAC> Date Luci Polk NP-C Cosigner Signature (if applicable): Date CC: Yang Saul MD; Naila Mcdonald DO; Luci Polk NP Signed CBC W/DIFF, AUTOMATED Collected: 06/06/2018 Status: F Source: [facility] 10:43 AM [facility] [place] CODE TESTS RESULT OUT OF RANGE REFERENCE UNITS LAB L100.1000 4.4-11.0 K/mm3 Normal WBC 7.7 LAB L100.1200 4.6-6.2 M/mm3 Low RBC 4.12 LAB L100.1300 13.0-16.5 g/dl Low HGB 12.2 LAB L100.1400 40-54 % Normal HCT 40.0 LAB L100.1500 80-94 fL High MCV 97.1 LAB L100.1600 27.0-32.0 pg Normal MCH 29.6 LAB L100.1700 32-36 g/gl Low MCHC 30.5 LAB L100.1810 11.6-14.6 % High RDW CV 15.7 LAB L100.1820 35.1-43.9 fl High RDW SD 55.0 LAB L100.1900 150-450 K/mm3 Low PLT 124 LAB L100.2000 6.2-12.0 fl Normal MPV 9.9 LAB L100.2100 47-70 % Normal NEUT% 67.2 LAB L100.2200 19-41 % Low LY% 18.7 LAB L100.2300 0-10 % High MONO% 11.0 LAB L100.2400 0-5 % Normal EO% 2.2 LAB L100.2500 0-1 % Normal BASO% 0.3 LAB L100.2550 0.0-0.9 % Normal IM GRAN % 0.600 Result Comment: IG% - Immature Granulocytes (promyelocytes, myelocytes and metamyelocytes) > 1% indicates that a LEFT SHIFT is Present. LAB L100.2620 2.0-7.7 X10 3/uL Normal Absolute Neut 5.2 LAB L100.2720 0.83-4.51 X10 3/ul Normal Absolute Lymph 1.44 Performed By: #### L100.0100 #### [facility] [address] [place], [address] ELECTROENCEPHALOGRAM Observed: 05/30/2018 Status: F Source: [facility] 8:57 PM [facility] [place] [facility] Pulmonary Services/Neurology [address] [place] [address] MR#: [id number] Acct: [id number] Name: KAVON HEARN Rep #: [id number] : 1955 62 From: Renetta Falcon MD Referring Dr: Sudheer Lawton MD Status: DIS IN Ordering Dr: Date: [place] [id number] Sex: M C - Electroencephalogram Date of service 05/13/2018 History EEG is being done in this 62 yr M to rule out seizures EEG Description: This is an 18 channel EEG with 10-20 lead placement system. Bipolar montages, Referential and Circumferential montages were reviewed. Photic stimulation was performed but hyperventilation was not performed. The posterior dominant rhythm is 9 HZ synchronous, symmetric, reacting to eye opening and closing. Photo stimulation elicited normal driving response but no abnormal photoparoxysmal response, Hyperventilation was not performed. Drowsiness was identified. There is no abnormal background slowing noted. EKG artefact noted during the record. External and muscle artefact noted during the record. There was no epileptiform discharges or electrographic seizures noted during this recording. EEG Interpretation This is a normal awake and drowsy EEG. There is no epileptiform discharges or electrographic seizures noted during the record. 05/30/182056 <Electronically signed by Renetta Falcon MD> Date Renetta Falcon MD CC: Jaqueline Falcon MD; Yang Saul MD; Sudheer Lawton MD Date Dictated: 05/13/18 1221 Date Transcribed: 05/13/181220 Confectionery Maker: [email or web address] Signed CONSULTATION Observed: 05/30/2018 Status: F Source: [facility] 8:57 PM [facility] [place] [facility] Medical Records Department [address] [place] [address] Consultation 05/12/18 1419 MR#: [id number] Acct: [id number] Name: KAVON HEARN Rep #: [id number] : 1955 62 From: Renetta Falcon MD PCP: Yang Saul MD Status: DIS IN Y [place] [facility] [id number] Problem List (1) Seizure Status: Acute Reason for Consult Date of Consultation: 05/12/18 Reason for Consultation: Seizure History of Present Illness: The patient is a 62 year old CM with PMH cervical/lumbar spondylosis, psoriasis, marijuana abuse, ? ETOH abuse admitted s/p mechanical fall, found to have acute, comminuted right intertrochanteric fracture. Patient is very [place]. History is obtained from medical records and patient. Neurology consulted for seizure. Per documentation yesterday (05/11/18) PLASTERER TENDER was called as patient had witnessed GTCs, followed by agitation and confusion, no tongue bite or urinary incontinence documented, per documentation patient had 2 seizures, was given Ativan. Patient was unaware of the event. Per patient he never had seizures. Lives in an assisted living probably, uses cane occasionally, denies any frequent falls, does not have a car to drive. Denies any BROWN, dizziness, focal motor weakness or sensory loss, denies any visual disturbances or speech disturbances. Labs: WBC-22.2, Plt-108, Cr-1.15, K-3.4, Na-141, AST/ALT-71/120, LA-8.9, UA-LE-25, WBC-0-5, UDS +ve for cannabinoids. Total CK-2957. CT head reported not to show anything acute. 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) Allergies Unable to Assess Allergy (Verified 05/11/18 10:59) Home Medications: Ambulatory Orders Medication Instructions Recorded Lisinopril/Hctz 1 tab PO DAILY 05/11/18 Omeprazole 20 mg PO BID 05/11/18 Lives: Alone Smoking Status: Current every day smoker Alcohol: Occasional Drugs: Marijuana - *Family History Maternal History Items: No pertinent history Review of Systems Constitutional: Reports: - - complete ROS negative except as documented in HPI Patient Problems: Active and Suspected Problems Fall (Acute) Rhabdomyolysis (Acute) Seizure (Acute) - Physical Exam General: Alert HEENT: Normocephalic Neck: Supple Lungs: Normal air movement Cardiovascular: Normal S1, Normal S2 Abdomen: Bowel Sounds Present Extremities: No cyanosis Neurological: - - consious, alert, AoAx3, CN 2-12 grossly intact, power 5/5 both UE, 5/5 left LE, moves right LE, s/p right acute communited, intertrochentratic fracture, denies any sensory loss, no cerebellar signs, Reflexes + B/L B/S/T/K/A, gait deferred Psych/Mental Status: Normal Affect Vital Signs Temp Pulse Resp BP Pulse Ox 99.5 F H 94 17 146/69 H 97 05/12/18 12:54 05/12/18 14:00 05/12/18 14:00 05/12/18 14:00 05/12/18 14:00 Oxygen Flow Rate (L/min) 2 Oxygen Delivery Method Nasal Cannula Weight: 76.9 kg Body Mass Index (BMI) 28.2 Intake and Output for Last 24 Hours Intake Total 597 / 597 2470 / 2470 Output Total 850 / 850 600 / 600 Balance -253 / -253 1870 / 1870 Laboratory Tests Past 24 Hrs WBC 22.2 H RBC 5.58 Hgb 17.9 H Hct 53.3 MCV 95.5 H MCH 32.1 H WBC RBC Hgb Hct MCV MCH MCHC RDW RDW Differential Plt Count MPV WBC 12.3 H RBC 4.39 L Hgb 13.8 Hct 40.9 MCV 93.2 MCH 31.4 MCHC 33.7 RDW 12.6 RDW Differential 41.5 WBC RBC Hgb Hct MCV MCH MCHC RDW RDW Differential Plt Count POC Glucose POC Glucose 161 H Assessment/Plan All Active Problems Fall (Acute) Rhabdomyolysis (Acute) Seizure (Acute) The patient is a 62 year old CM with PMH cervical/lumbar spondylosis, psoriasis, marijuana abuse, ? ETOH abuse admitted s/p mechanical fall, found to have acute, comminuted right intertrochanteric fracture. Patient is very [place]. History is obtained from medical records and patient. Neurology consulted for seizure. Per documentation yesterday (05/11/18) PLASTERER TENDER was called as patient had witnessed GTCs, followed by agitation and confusion, no tongue bite or urinary incontinence documented, per documentation patient had 2 seizures, was given Ativan. Patient was unaware of the event. Per patient he never had seizures. Lives in an assisted living probably, uses cane occasionally, denies any frequent falls, does not have a car to drive. Denies any BROWN, dizziness, focal motor weakness or sensory loss, denies any visual disturbances or speech disturbances. Labs: WBC-22.2, Plt-108, Cr-1.15, K-3.4, Na-141, AST/ALT-71/120, LA-8.9, UA-LE-25, WBC-0-5, UDS +ve for cannabinoids. Total CK-2957. CT head reported not to show anything acute. Impression Seizures Plan -Keppra 500 mg IV BID. S/E discussed in detail. AED since patient had 2 seizures per documentation -Correction of underlying metabolic abnormalities per hospitalist/ICU team -Check MRI brain w/o contrast -Check EEG -Patient scheduled for surgery at present for right hip fracture. Per documentation patient is getting platelet transfusion prior to surgery -Patient counseled not to drive for 6 months -Seizure precautions discussed in detail -PT/OT -Fall precautions -Patient counseled to stop ETOH abuse, and marijuana -Follow up with Neurology as outpatient in 6 weeks -Please call with questions if any -Thank you for allowing us to participate in patient's care and management. Code Visit Inpatient E AND M: [id number] Init Hosp L3 05/30/182056 <Electronically signed by Renetta Falcon MD> Date Renetta Falcon MD Cosigner Signature (if applicable): Date CC: Jaqueline Falcon MD; Yang Saul MD; Rios Cunha MD Signed HISTORY AND PHYSICAL Observed: 05/29/2018 Status: F Source: [facility] EXAM 12:04 PM [facility] [place] [facility] Medical Records Department [address] [place] [address] History and Physical 05/22/18 1311 MR#: [id number] Acct: [id number] Name: KAVON HEARN Rep #: [id number] : 1955 62 From: José Alvarez MD PCP: Yang Saul MD Status: ADM IN Location: [place] [address] History of Present Illness Date of Admission: 05/21/18 Chief Complaint: DEBILITY The patient is a 62 year old M with a history of ankylosing spondylitis and a long history of chronic back pain in his mid back, he suffered a mechanical fall on 05/10/2018, requiring ORIF of his right hip on 05/12/18. Subsequently on 05/14/18 he was diagnosed with an epidural hematoma at T8, was transported to [facility] and underwent evacuation by orthospine on 05/15/18. He says his main complaint now is he continues to experience back pain which is similar but worse than his previous back pain. The pain however is not changed since his initial injury on 05/10. He also has weakness in his lower extremities and loss of sensation which has not improved as well as urinary retention and constipation. He is nonweightbearing. He says his arms are unaffected. He is frustrated by his condition and would like increase in his pain medications. We also discussed repeating CT of his thoracic spine to evaluate for recurrence of his hematoma which he agrees to.. 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) Allergies Unable to Assess Allergy (Verified 05/11/18 10:59) Home Medications: Ambulatory Orders Medication Instructions Recorded Smoking Status: Current every day smoker - *Family History Maternal History Items: No pertinent history VTE Information - Inpt Only VTE Present on Admission: Yes VTE Mechan Device Prophylaxis: SCD's - Physical Exam General: Alert, Oriented x3, Cooperative, No apparent distress HEENT: Atraumatic, PERRLA, EOMI Neck: Supple Lungs: Clear to auscultation Cardiovascular: Regular rate Abdomen: Bowel Sounds Present, Soft, Non Tender Neurological: - - 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 Vital Signs Temp Pulse Resp BP Pulse Ox 36.7 C 99 18 103/55 L 94 05/22/18 07:00 05/22/18 07:00 05/22/18 07:00 05/22/18 07:00 05/22/18 07:00 Oxygen Delivery Method Room Air Weight: 75.6 kg Body Mass Index (BMI) 30.8 Intake and Output for Last 24 Hours Intake Total 720 / 720 340 / 340 Output Total 800 / 800 1100 / 1100 Balance -80 / -80 -760 / -760 Laboratory Tests Past 24 Hrs WBC 10.0 RBC 2.84 L Hgb 8.7 L Hct 28.6 L MCV 100.7 H Current Home Med List Medication Instructions Recorded Confirmed Type Omeprazole 20 mg PO DAILY 05/11/18 05/21/18 History Ergocalciferol [Vitamin D] 50,000 unit PO Q7D 05/21/18 05/21/18 History Current Medications Generic Name Dose Route Start Last Admin Trade Name Freq PRN Reason Stop Dose Admin Assessment/Plan All Active Problems Fall (Resolved) Rhabdomyolysis (Resolved) Debility status post fall resulting in right hip fracture status post ORIF 05/12/18 and consequent epidural hematoma in his thoracic spine status post evacuation laminectomy 05/15/18. This is all complicated by a history of ankylosing spondylitis, chronic back pain and alcohol use. Goal of rehab is denominational of previous level of functional independence. Plan: Physical therapy for transfers, he is nonweightbearing. Occupational Therapy for ADLs PRN analgesics Bowel protocol DVT prophylaxis: Transfer orders recommended Lovenox however given his thoracic hematoma and ongoing back pain we will limit his DVT prophylaxis to SCDs. Encourage alcohol abstention Continue antihypertensives Proton pump inhibitor Urinary retention: Louise catheter for now. Constipation: Bowel protocol Back pain: Repeat CT of his thoracic spine to increase fentanyl patch 05/29/18 1204 <Electronically signed by José Alvarez MD> Date José Alvarez MD Cosigner Signature: Date (if applicable) CC: Yang Saul MD; José Alvarez MD Signed SPINE THORACIC Observed: 05/27/2018 Status: F Source: [facility] WITHOUT CONTRAS 1:18 PM [facility] Imaging Services [address] [place] [address] Spine Thoracic without Contras MR#: [id number] Acct: [id number] Name: KAVON HEARN Rep #: [id number] : 1955 62 From: Venkata Franklin MD PCP: Yang Saul MD Status: ADM IN Study: Spine Thoracic without Contras Date of Exam: 05/27/18 Exam# [id number] Ordering Dr: Fatou Vargas STUDY: CT THORACIC SPINE WITHOUT CONTRAST REASON FOR EXAM: Male, 62 years old. Pain between shoulders. The patient is paraplegic secondary to thoracic fracture. Prior surgical instrumentation. RADIATION DOSAGE (If Supplied By Facility): CTDIvol = ( 19.97 ) mGy, DLP = ( 744.83 ) mGycm TECHNIQUE: The patient was scanned in a multi detector CT scanner. High resolution imaging was performed. Images were obtained from T1 to T12 vertebral level. Sagittal and coronal images were reconstructed. Individualized dose optimization techniques were used for this CT. COMPARISON: Comparison is made with prior study dated May 22, 2018. FINDINGS: Once again, there is evidence of a syndesmophytes along the anterior aspect of the thoracic vertebrae and upper lumbar vertebrae suggestive of ankylosing spondylitis. There is an increased kyphosis of the thoracic spine. There is no substantial scoliosis. The patient is status post interpedicular screw and sue fixation T3 down to the T9 level. There is multilevel degenerative disc disease with loss of the disc space heights. Months again, there is a stable fracture involving the posterior aspect of the body of the T8 vertebrae with minimal listhesis of T7 on T8. The soft tissue structures are unremarkable. CT/Spine Thoracic without Contras IMPRESSION: Stable examination. Electronically Signed: Venkata Franklin MD at 14:11 EST Tel [phone], Service support , CC: ULISES Vargas; Yang Saul MD Confectionery Maker: Signed HIP, UNI W/ PELVIS Observed: 05/26/2018 Status: F Source: [facility] 2-3 VIEWS 2:48 PM [facility] Imaging Services [address] [place] [id number] HIP, UNI W/ Pelvis 2-3 Views MR#: [id number] Acct: [id number] Name: KAVON HEARN Rep #: [id number] : 1955 62 From: Natividad Donaldson MD PCP: Yang Saul MD Status: ADM IN Study: HIP, UNI W/ Pelvis 2-3 Views Date of Exam: 05/26/18 Exam# [id number] Ordering Dr: Rios Cunha MD STUDY: X-RAY - RIGHT HIP REASON FOR EXAM: Male, 62 years old. Right hip pain. TECHNIQUE: 5 views of the hip. COMPARISON: None. FINDINGS: The patient is status post internal fixation of a right femoral neck and shaft fracture. Fragments of the greater and lesser tuberosities are present. There is no radiographic evidence of loosening of fixation hardware. There is no acute fracture. There is no hip dislocation. Mild degenerative changes of the hips are noted bilaterally, with lateral acetabular spurring. There is mild joint space narrowing, greater on the left. Enthesopathic degenerative changes of the pelvis are noted. RAD/HIP, UNI W/ Pelvis 2-3 Views IMPRESSION: 1. No acute process. 2. Status post ORIF of the right hip. 3. Mild degenerative changes of the hips and pelvis. Electronically Signed: Natividad Donaldson MD at 16:42 EST Tel , Service support , CC: Yang Saul MD; Rios Cunha MD Confectionery Maker: Signed PLATELET COUNT Collected: 05/26/2018 Status: F Source: [facility] 12:55 PM [facility] TYPE CODE TESTS RESULT OUT OF RANGE REFERENCE UNITS LAB L100.1900 150-450 K/mm3 Low PLT 127 Performed By: #### L100.1900 #### [facility] [address] [place], [address] COMPREHENSIVE METABOLIC Collected: 05/26/2018 Status: F Source: [facility] 12:55 PM [facility] TYPE CODE TESTS RESULT OUT OF RANGE REFERENCE UNITS LAB L501.0100 74-106 mg/dL High GLU 140 Result Comment: Fasting Glucose result greater than or equal to 126 mg/dL suggests DIABETES MELLITUS per A.D.A. criteria. Please note revised GLUCOSE reference range effective 2017. LAB L501.1000 7-18 mg/dL High BUN 30 LAB L501.1100 0.70-1.30 mg/dL Normal CREAT,SERUM 0.83 Result Comment: The validity of the calculated GFR AND GFRAA in patients over 70 years has not been determined. Clinical correlation is essential. LAB L501.1110 >60 mL/min Normal EST GFR 100 Result Comment: Non- GFR Calc LAB L501.1115 >60 mL/min Normal EST GFR - AA 121 Result Comment: GFR Calc LAB L501.1255 ml/min Normal Estimated CRCL 78.26 LAB L501.1300 10-20 RATIO High BUN/CRE 36.2 LAB L501.1500 6.4-8. g/dL Normal 2 T PROT 6.5 LAB L501.1800 3.2-5. g/dL Low 0 ALB 2.5 LAB L501.1950 2.2-4. g/dL Normal 2 GLOB 4.0 LAB L501.2000 0.9-2. RATIO Low 4 A/G 0.6 LAB L501.2200 8.5-10 mg/dL Low .1 CA 8.1 LAB L501.4100 15-37 U/L High AST 42 LAB L501.4305 45-117 U/L High ALK P 313 LAB L501.4405 16-61 U/L Normal ALT 46 LAB L501.4600 0.20-1 mg/dL High .00 T BILI 1.20 LAB L501.5300 136-14 mmol/L Normal 5 NA 136 LAB L501.5600 3.5-5. mmol/L Low 1 K 3.4 LAB L501.5900 98-107 mmol/L Low CL 95 LAB L501.6100 21.0-3 mmol/L Normal 2.0 CO2 31.0 LAB L501.6200 5-15 Normal GAP 10 Performed By: #### L500.4050 #### [facility] [address], [address] BRAIN WITHOUT Observed: 05/26/2018 Status: F Source: [facility] CONTRAST 12:50 PM [facility] Imaging Services [address] [place] [address] Brain without Contrast MR#: [id number] Acct: [id number] Name: KAVON HEARN Rep #: [id number] : 1955 M 62 From: Natividad Donaldson MD PCP: Yang Saul MD Status: ADM IN Study: Brain without Contrast Date of Exam: 05/26/18 Exam# [id number] Ordering Dr: Renetta Falcon MD ADDENDUM by Natividad Donaldson MD on 05/28/18 at 1848 ADDENDUM Comparison was made with the prior study of 05/14/2018. Comparison was reported in the original body and impression of the report. Electronically Signed: Natividad Donaldson MD at 18:48 EST Tel , Service support , 05/28/18 1848 Date cc: Jaqueline Falcon MD; Yang Saul MD * Signed ADDENDUM by Natividad Donaldson MD on 05/28/18 at 1848 MRI/Brain without Contrast 05/28/18 1854 Date cc: Jaqueline Falcon MD; Yang Saul MD * Signed STUDY: MRI BRAIN WITHOUT CONTRAST REASON FOR EXAM: Male, 62 years old. PRES. TECHNIQUE: Standardized multiplanar fat and water weighted pulse sequences were obtained. COMPARISON: None. FINDINGS: This study is slightly limited due to positioning. There is decreased resolution on the FLAIR sequence. There is mild cerebral atrophy with widening of the extra- axial spaces and ventricular dilatation. There are a limited number of small white matter hyperintensities, distributed throughout the deep white matter tracts of the cerebral hemispheres, consistent with mild chronic white matter ischemic changes. Areas of signal hyperintensity in the occipital lobes are essentially resolved compared to the prior study. Normal bilateral basal ganglia. Normal thalami. There is no extra-axial fluid accumulation. Normal flow voids within the major intracranial circulation suggesting patency by spin echo criteria. Normal sella turcica, pituitary gland, infundibular stalk, optic chiasm and hypothalamus. Normal tectal plate and pineal gland. Normal midbrain, regino and medulla. Normal cerebellum. Normal basal cisterns. Normal bilateral temporal bones. Normal bilateral internal auditory canals. No demonstrated orbital abnormality, within the constraints of a routine brain study. Normal visualized paranasal sinuses. Normal calvarium and skull base. Normal visualized soft tissue structures. Normal visualized upper cervical spine. 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 Mild chronic microvascular ischemic changes. Electronically Signed: Natividad Donaldson MD at 17:27 EST Tel , Service support , CC: Jaqueline Falcon MD; Yang Saul MD Confectionery Maker: Signed PLATELET COUNT Collected: 05/25/2018 Status: F Source: [facility] 10:45 AM [facility] TYPE CODE TESTS RESULT OUT OF RANGE REFERENCE UNITS LAB L100.1900 150-450 K/mm3 Low PLT 149 Performed By: #### L100.1900 #### [facility] [address] [place], [address] SPINE THORACIC Observed: 05/22/2018 Status: F Source: [facility] WITHOUT CONTRAS 1:42 PM [facility] Imaging Services [address] [place] [address] Spine Thoracic without Contras MR#: [id number] Acct: [id number] Name: KAVON HEARN Rep #: [id number] : 1955 M 62 From: Soto Tavarez MD PCP: Yang Saul MD Status: ADM IN Study: Spine Thoracic without Contras Date of Exam: 05/22/18 Exam# [id number] Ordering Dr: José Alvarez MD STUDY: CT THORACIC SPINE WITHOUT CONTRAST REASON FOR EXAM: Male, 62 years old. Paraplegia RADIATION DOSAGE (If Supplied By Facility): CTDIvol = ( 22.26 ) mGy, DLP = ( 1392.91 ) mGycm TECHNIQUE: The patient was scanned in a multi detector CT scanner. High resolution imaging was performed. Images were obtained from to . Sagittal and coronal images were reconstructed. Individualized dose optimization techniques were used for this CT. COMPARISON: None. FINDINGS: There are syndesmophytes in the thoracic spine. Rheumatoid arthritis suspected. There is a fracture involving the posterior aspect of the body of T8 with a mild spondylolisthesis of T7 over T8. Plates and transpedicular screws through T5, T6, T7, T9, T10 and T11. The hardware is in good position. There is also deroofing extending from T5 through T10. CT/Spine Thoracic without Contras IMPRESSION: The presence of syndesmophytes. Rheumatoid arthritis suspected. The fracture of T8 vertebral body. Plates and transpedicular screws extending from T5 through T11. There is deroofing from T5 to T10. Electronically Signed: Soto Tavarez MD at 3:10 EST Tel , Service support , CC: Yang Saul MD; José Alvarez MD Confectionery Maker: Signed CBC-COMPLETE BLOOD CNT Collected: 05/22/2018 Status: F Source: [place] NO DIFF 5:40 AM [facility] TYPE CODE TESTS RESULT OUT OF RANGE REFERENCE UNITS LAB L100.1000 4.4-11.0 K/mm3 Normal WBC 10.0 LAB L100.1200 4.6-6.2 M/mm3 Low RBC 2.84 LAB L100.1300 13.0-16.5 g/dl Low HGB 8.7 LAB L100.1400 40-54 % Low HCT 28.6 LAB L100.1500 80-94 fL High MCV 100.7 LAB L100.1600 27.0-32.0 pg Normal MCH 30.6 LAB L100.1700 32-36 g/gl Low MCHC 30.4 LAB L100.1810 11.6-14.6 % High RDW CV 16.1 LAB L100.1820 35.1-43.9 fl High RDW SD 53.5 LAB L100.1900 150-450 K/mm3 Normal PLT 199 LAB L100.2000 6.2-12.0 fl Normal MPV 10.5 Performed By: #### L100.0500, L500.2500 #### [facility] [address] [place], [place], [address] BASIC METABOLIC Collected: 05/22/2018 Status: F Source: [facility] PROFILE (BMP) 5:40 AM [facility] TYPE CODE TESTS RESULT OUT OF RANGE REFERENCE UNITS LAB L501.0100 74-106 mg/dL Normal GLU 103 Result Comment: Fasting Glucose result from 100 to 125 mg/dL suggests IMPAIRED HOMEOSTASIS per A.D.A. criteria. Please note revised GLUCOSE reference range effective 2017. LAB L501.1000 7-18 mg/dL High BUN 19 LAB L501.1100 0.70-1.30 mg/dL Normal CREAT,SERUM 0.71 Result Comment: The validity of the calculated GFR AND GFRAA in patients over 70 years has not been determined. Clinical correlation is essential. LAB L501.1110 >60 mL/min Normal EST GFR 120 Result Comment: Non- GFR Calc LAB L501.1115 >60 mL/min Normal EST GFR - AA 145 Result Comment: GFR Calc LAB L501.1255 ml/min Normal Estimated CRCL 91.49 LAB L501.1300 10-20 RATIO High BUN/CRE 26.8 LAB L501.2200 8.5-10 mg/dL Low .1 CA 7.6 LAB L501.5300 136-14 mmol/L Normal 5 NA 138 LAB L501.5600 3.5-5. mmol/L Normal 1 K 4.2 LAB L501.5900 98-107 mmol/L Normal CL 104 LAB L501.6100 21.0-3 mmol/L Normal 2.0 CO2 28.0 LAB L501.6200 5-15 Normal GAP 6 Performed By: #### L100.0500, L500.2500 #### [facility] [address] [place], [place], [id number] DISCHARGE SUMMARY Observed: 05/21/2018 Status: F Source: [facility] 10:55 AM SYSTEM REPOSITORY Department of Trauma / Critical Care Discharge Summary Name: Kavon Hearn Date: 05/28/2018 1:05 PM : 1955 Age/Sex: 62 y.o. male Admit Date: 05/14/18 Discharge Date: 05/21/18 Attending: Naila Espinosa DO Discharge Diagnosis: 1. Spinal cord injury at T8 level, initial encounter (HCC) Patient Active Problem List Diagnosis ? Epidural hematoma (HCC) ? Spinal cord injury at T8 level (HCC) ? Paraplegia (HCC) ? Closed unstable burst fracture of eighth thoracic vertebra (HCC) ? Essential hypertension ? GERD (gastroesophageal reflux disease) ? Closed displaced intertrochanteric fracture of right femur (HCC) ? Acute blood loss anemia ? Thrombocytopenia (HCC) ? Ankylosing spondylitis (HCC) ? Psoriatic arthritis (HCC) ? Vitamin D deficiency Body mass index is 25.82 kg/m?. BMI Classification: Overweight (BMI 25.0-29.9) Reason for Hospitalization: The patient was admitted for mechanical fall from standing. Hospital Course (Care, treatment and services provided): Please see H&P and prior notes for more detailed summary of previous investigations and clinical assessment prior to this admission. Brief HPI Kavon Hearn is a 62 y.o. male with significant past medical history of chronic back pain, etoh abuse who presented to [facility] on 05/11 after falling from standing. He underwent CMN of his R hip on 05/12. After surgery he reports being unable to move both his legs. On 05/14 he had an MRI performed that showed a T8 fracture with large hematoma causing spinal cord compression. Pt transferred to [facility] for further care. Hospital course: 62 male seen as a SICU consult after transfer from [place]. Patient had presented to [facility] after experiencing decreased sensation to bilateral lower extremities. MRI was performed showing a T8 fracture with a large hematoma causing cord compression. Ortho took patient the same evening to the OR for posterior lumbar decompression and fusion T4-T11 and evacuation of epidural hematoma and placement of drains x 2.. Ortho requested no DVT ppx x 5 days post-op. Post-op patient was transferred to for frequent neuro checks, paralysis and numbness persisted post-op from lower chest down with the exception of minimal sensation to b/l dorsum of feet. Post- op pt mildly anemic hgb 6.3->7.5 but otherwise asymtomatic. Pt received decadron 10mg IV q8 x 48 hrs. Pt was transferred to the floor 05/16. PT worked with patient and recommended inpatient rehab. 05/18 left drain was removed. 05/19 right drain removed. 05/21 patient was transferred to rehab. Consultations: Ortho spine PT/OT PCP: No primary care provider on file. Recommended Follow-ups: Trauma in 2 weeks Ortho in 1-2 weeks Treatments and Procedures with outcomes: Labs: Data Review Data CBC with Differential: Lab Results Component Value Date WBC 9.5 05/19/2018 RBC 2.66 05/19/2018 HGB 8.6 05/19/2018 HCT 25.1 05/19/2018 PLT 210 05/19/2018 CMP: Lab Results Component Value Date NA 140 05/18/2018 K 3.9 05/18/2018 CL 108 05/18/2018 CO2 30 05/18/2018 BUN 20 05/18/2018 CREATININE 0.63 05/18/2018 GLUCOSE 95 05/18/2018 CALCIUM 7.1 05/18/2018 BMP: Hepatic Function Panel: Ionized Calcium: Lab Results Component Value Date IONCA 4.00 05/16/2018 Magnesium: Lab Results Component Value Date MG 2.2 05/16/2018 Phosphorus: Lab Results Component Value Date PHOS 2.5 05/16/2018 PT/INR: Lab Results Component Value Date PROTIME 10.7 05/14/2018 INR 1.0 05/14/2018 PTT: Lab Results Component Value Date APTT 23.1 05/14/2018 [APTT Last 3 Troponin: No results found for: TROPONINI Urine Culture: No components found for: CURINE Blood Culture: No components found for: CBLOOD, CFUNGUSBL Blood Culture from Central Line: No components found for: CBLOODLN Stool Culture: No components found for: CSTOOL Sputum Culture: No components found for: CSPUTUM Sputum Culture for AFB: No components found for: CAFBSM Wound Culture: Procedures: See above Significant Imaging Results: Xr Abdomen (kub) (single Ap View) Result Date: 05/17/2018 Patient Name: KAVON HEARN ---Diagnostic Radiology--- Exam Date/Time 05/17/2018 09:29:14 EST Exam CR Abdomen AP Ordering Physician CHIRAG HOLCOMB JULIE Accession Number [id number] CPT4 Codes 75851 () Reason For Exam pain - please include pelvis Report ABDOMEN: 05/17/2018 at 0921 hours CLINICAL INDICATION: Abdominal pain. TECHNIQUE: Supine AP view of abdomen and pelvis. COMPARISON: 05/16/2018. FINDINGS: Right-sided abdominal catheter has been removed. Inferior aspect of pelvis is not included on exam. No overt free air. The bowel gas pattern is unremarkable. Probable cholelithiasis. 3 mm calculus overlies the right inferior kidney. There is no organomegaly. Silhouette shadows are silhouetted suggesting possible ascites. Inferior thoracic spinal rods. Anterior ligamentous calcification and ossification of longitudinal ligaments suggest ankylosing spondylitis. IMPRESSION: 1. No acute abdominal process. 2. Cholelithiasis and right renal calculus, unchanged. 3. Ascites cannot be excluded. Report Dictated on --- Final --- Dictated: 05/17/2018 9:33 am Dictating Physician: ELIAS MORGAN DO, I Signed Date and Time: 05/17/2018 9:38 am Signed by: ELIAS MORGAN DO, I Transcribed Date and Time: 05/17/2018 9:33 Xr Abdomen (kub) (single Ap View) Result Date: 05/16/2018 Patient Name: KAVON HEARN ---Diagnostic Radiology--- Exam Date/Time 05/16/2018 14:05:38 EST Exam CR Abdomen AP Ordering Physician ARETHA OG Accession Number [id number] CPT4 Codes 46719 () Reason For Exam abdominal pain Report Examination: Supine abdomen/KUB Clinical Indication: Abdominal pain Comparison: None Findings: One supine view of the upper to mid abdomen excluding the far right abdomen and lower pelvis. Images demonstrate a nonspecific, nonobstructive bowel gas appearance. Catheter overlies the gastric bubble. There is no evidence for bowel dilatation. There is air and stool seen throughout the bowel. Free air and air- fluid levels are not adequately assessed without upright or decubitus view. No gross large volume free air is noted on this examination. Calcifications right upper abdomen may represent cholelithiasis. There is a calcification overlying the lower right kidney measuring 4 mm. Degenerative changes within the spine. Suggestion of fusion of the spinous processes possibly ankylosing spondylitis. There is lower thoracic fusion hardware incompletely evaluated. Impression: Limited examination omitting the far right abdomen and lower pelvis. Nonspecific, nonobstructive bowel gas appearance. Findings suggesting cholelithiasis. Calcification likely renal also overlies the lower pole right kidney 0.4 cm. Report Dictated on --- Final --- Dictated: 05/16/2018 2:15 pm Dictating Physician: MD ESPARZA ANTHONY J Signed Date and Time: 05/16/2018 2:17 pm Signed by: MD ESPARZA ANTHONY J Transcribed Date and Time: 05/16/2018 2:15 Xr Chest Portable Result Date: 05/17/2018 Patient Name: KAVON HEARN ---Diagnostic Radiology--- Exam Date/Time 05/17/2018 07:03:28 EST Exam CR Chest Portable Ordering Physician MD ESCOBAR ANDREW MICHAEL Accession Number [id number] CPT4 Codes 19917 () Reason For Exam dyspnea Report PORTABLE CHEST CLINICAL INDICATION: Dyspnea. COMPARISON: None. TECHNIQUE: A single frontal view of thorax was obtained and reviewed. IMPRESSION: 1. Lines/ tubes/ devices: None. 2. Lungs and Pleura: Minimal left basilar atelectasis. No infiltrate or mass. No pneumothorax or pleural effusion.3. Heart and mediastinum: Normal cardiomediastinal margin. 4. Bones: Thoracic degenerative spondylosis. Thoracic spine pedicle screws and Osullivan rods are identified. Report Dictated on --- Final --- Dictated: 05/17/2018 7:43 am Dictating Physician: ELIAS MORGAN DO, I Signed Date and Time: 05/17/2018 7:44 am Signed by: ELIAS MORGAN DO, I Transcribed Date and Time: 05/17/2018 7:43 Vl Dup Lower Extremity Venous Bilateral Result Date: 05/19/2018 [facility] Lower Extremity Venous Duplex Report Patient Name: Kavon Hearn : 1955 (62yrs) Study Date: 05/19/2018 Age: 62 Account: [id number] Gender: M Loc: 1323 BP: Ordering: Mark Escobar Technologist: Ordering Physician: Mark Escobar Kiln Loader: Mateo Dee T, [facility] Interpreting Physician: Eliel Ingram Location: [facility] INDICATIONS: Edema. CONCLUSIONS 1. Normal venous duplex. IMPRESSIONS: These findings are negative for deep or superficial vein thrombosis in the bilateral lower extremities. STUDY DATA: Complete lower extremity venous duplex evaluation. Birthdate: Patient birthdate: 1955. Age: Patient is 62 yr old. Sex: Gender: male. Ethnicity: Ethnicity: white. Doppler flow study including spectral analysis, color and fuller scale imaging. Patient status: Inpatient. Procedure: A vascular evaluation was performed. The images were obtained using a [id number] E9 vascular ultrasound machine. VENOUS FLOW AND IMAGING: + +-------+ + !Location !Overall!Flow properties ! + +-------+ + !Right common femoral !Patent !Normal phasicity; spontaneous; normal ! ! ! !augmentation; compressible ! + +-------+ + !Right saphenofemoral junction!Patent !Compressible ! + +-------+ + !Right profunda femoral !Patent !Normal phasicity; spontaneous; normal ! ! ! !augmentation ! + +-------+ + !R femoral proximal !Patent !Compressible ! + +-------+ + !R femoral mid !Patent !Normal phasicity; spontaneous; normal ! ! ! !augmentation; compressible ! + +-------+ + !R femoral distal !Patent !Compressible ! + +-------+ + !Right popliteal !Patent !Normal phasicity; spontaneous; normal ! ! ! !augmentation; compressible ! + +-------+ + !Right gastrocnemius !Patent !Compressible ! + +-------+ + !Right posterior tibial !Patent !Compressible ! + +-------+ + !Right peroneal !Patent !Compressible ! + +-------+ + !Right soleal !Patent !Compressible ! + +-------+ + !Right greater saphenous !Patent !Compressible ! + +-------+ + !Left common femoral !Patent !Normal phasicity; spontaneous; normal ! ! ! !augmentation; compressible ! + +-------+ + !Left saphenofemoral junction !Patent !Compressible ! + +-------+ + !Left profunda femoral !Patent !Normal phasicity; spontaneous; normal ! ! ! !augmentation ! + +-------+ + !L femoral proximal !Patent !Compressible ! + +-------+ + !L femoral mid !Patent !Normal phasicity; spontaneous; normal ! ! ! !augmentation; compressible ! + +-------+ + !L femoral distal !Patent !Compressible ! + +-------+ + !Left popliteal !Patent !Normal phasicity; spontaneous; normal ! ! ! !augmentation; compressible ! + +-------+ + !Left gastrocnemius !Patent !Compressible ! + +-------+ + !Left posterior tibial !Patent !Compressible ! + +-------+ + !Left peroneal !Patent !Compressible ! + +-------+ + !Left soleal !Patent !Compressible ! + +-------+ + !Left greater saphenous !Patent !Compressible ! + +-------+ + Electronically signed by: DeannaEliel [id number] [facility] Lower Extremity Venous Bilateral Result Date: 05/17/2018 [facility] Lower Extremity Venous Duplex Report Patient Name: Kavon Hearn : 1955 Study Date: 05/16/2018 (62yrs) Age: 62 Account: [id number] Gender: M Loc: 1323 BP: Ordering: Aretha Og Technologist: Ordering Physician: Aretha Og Kiln Loader: Joni Abbasi RVT, [facility] Interpreting Physician: Joni Peralta MD Location: [facility] INDICATIONS: Edema. bilateral calf edema. CONCLUSIONS 1. This is a normal study. IMPRESSIONS: - This is a normal study. - These findings are negative for deep or superficial vein thrombosis in the bilateral lower extremities. STUDY DATA: Complete lower extremity venous duplex evaluation. Birthdate: Patient birthdate: 1955. Age: Patient is 62 yr old. Sex: Gender: male. Ethnicity: Ethnicity: white. Doppler flow study including spectral analysis, color and fuller scale imaging. Patient status: Inpatient. Procedure: A vascular evaluation was performed. The images were obtained using a [id number] E9 vascular ultrasound machine. VENOUS FLOW AND IMAGING: + +-------+ + !Location !Overall!Flow properties ! + +-------+ + !Right common femoral !Patent !Normal phasicity; spontaneous; normal ! ! ! !augmentation; compressible ! + +-------+ + !Right saphenofemoral junction!Patent !Compressible ! + +-------+ + !Right profunda femoral !Patent ! ! + +-------+ + !R femoral proximal !Patent !Compressible ! + +-------+ + !R femoral mid !Patent !Normal phasicity; spontaneous; normal ! ! ! !augmentation; compressible ! + +-------+ + !R femoral distal !Patent !Compressible ! + +-------+ + !Right popliteal !Patent !Normal phasicity; spontaneous; normal ! ! ! !augmentation; compressible ! + +-------+ + !Right gastrocnemius !Patent !Compressible ! + +-------+ + !Right posterior tibial !Patent !Compressible ! + +-------+ + !Right peroneal !Patent !Compressible ! + +-------+ + !Right soleal !Patent !Compressible ! + +-------+ + !Right greater saphenous !Patent !Compressible ! + +-------+ + !Left common femoral !Patent !Normal phasicity; spontaneous; normal ! ! ! !augmentation; compressible ! + +-------+ + !Left saphenofemoral junction !Patent !Compressible ! + +-------+ + !Left profunda femoral !Patent ! ! + +-------+ + !L femoral proximal !Patent !Compressible ! + +-------+ + !L femoral mid !Patent !Normal phasicity; spontaneous; normal ! ! ! !augmentation; compressible ! + +-------+ + !L femoral distal !Patent !Compressible ! + +-------+ + !Left popliteal !Patent !Normal phasicity; spontaneous; normal ! ! ! !augmentation; compressible ! + +-------+ + !Left gastrocnemius !Patent !Compressible ! + +-------+ + !Left posterior tibial !Patent !Compressible ! + +-------+ + !Left peroneal !Patent !Compressible ! + +-------+ + !Left soleal !Patent !Compressible ! + +-------+ + !Left greater saphenous !Patent !Compressible ! + +-------+ + Electronically signed by: Joni Peralta MD [id number] Incidental Findings: none Pending Test Results and Tests to Obtain as Outpatient: none Disposition: He was discharged to rehab Discharge Medications: He did have significant changes to their home medications (see below) Medication List START taking these medications docusate 100 MG Caps Commonly known as: COLACE, DULCOLAX Take 100 mg by mouth 3 times daily enoxaparin 30 MG/0.3ML injection Commonly known as: LOVENOX Inject 0.3 mLs into the skin 2 times daily ergocalciferol 44011 units capsule Commonly known as: ERGOCALCIFEROL Take 1 capsule by mouth once a week gabapentin 100 MG capsule Commonly known as: NEURONTIN Take 1 capsule by mouth 3 times daily for 31 days.. guaiFENesin 600 MG extended release tablet Commonly known as: MUCINEX Take 1 tablet by mouth 2 times daily mineral oil-hydrophilic petrolatum ointment Apply topically as needed. multivitamin tablet Take 1 tablet by mouth daily CONTINUE taking these medications lisinopril-hydrochlorothiazide 20-25 MG per tablet Commonly known as: PRINZIDE;ZESTORETIC Potassium 99 MG Tabs PRILOSEC 20 MG delayed release capsule Generic drug: omeprazole ASK your doctor about these medications oxyCODONE 5 MG immediate release tablet Commonly known as: ROXICODONE Take 1 tablet by mouth every 6 hours as needed for Pain for up to 3 days.. Ask about: Should I take this medication? Where to Get Your Medications You can get these medications from any pharmacy Bring a paper prescription for each of these medications ? oxyCODONE 5 MG immediate release tablet Information about where to get these medications is not yet available Ask your nurse or doctor about these medications ? docusate 100 MG Caps ? enoxaparin 30 MG/0.3ML injection ? ergocalciferol 06674 units capsule ? gabapentin 100 MG capsule ? guaiFENesin 600 MG extended release tablet ? mineral oil-hydrophilic petrolatum ointment ? multivitamin tablet Discharge Condition: Physical Exam at the time of discharge: Please refer to the Progress note on day of discharge for a detailed exam. At the time of discharge the patient is good. Discharge Instructions: Activity: activity as tolerated Diet: regular diet Discharge needs: PT/OT The patient's OARRS report was obtained and reviewed by myself on 05/21/18. Discharge Instructions Provided: You have been diagnosed with a concussion. Upon discharge you can expect post-concussion symptoms. These include but are not limited to: - Thinking/remembering - difficulty thinking clearly, remembering new info, and concentrating - Physical - headache, blurry vision, dizziness, sensitivity to light and noises, feeling tired, balance problems - Emotional, mood - irritability, sadness, emotional, nervous or anxiety - Sleep - sleeping more than usual, sleep less then usual, trouble falling asleep To feel better: - Get plenty of sleep at night, and take it easy during the day - Avoid physically demanding activities or those that require a lot of concentration - Do not drive, operate heavy equipment until cleared by your doctor - Do not drink alcohol While taking narcotic medications be sure to: Not operate heavy machinery Do not drive while taking narcotic medication Return to the emergency department if: You are very drowsy. Your speech is slurred. You have trouble thinking, remembering things, or focusing. Contact your healthcare provider if: You want help or information on how to stop using or abusing narcotics. Follow up with your healthcare provider as directed: Write down your questions so you remember to ask them during your visits. Narcotic intoxication usually lasts for several hours. You may have the following during or after you use narcotics: Behavior or mood changes, such as a great feeling followed by the feeling that you do not care about anyone or anything Trouble thinking, remembering things, or focusing Small pupils Feeling very drowsy Slurred speech Narcotic withdrawal occurs if you stop using narcotics after using them heavily over a period of time. Signs and symptoms may begin within minutes or days and continue for days or even months: Depression and anxiety Nausea or vomiting Muscle aches Watery eyes or runny nose Large pupils Sweating or goosebumps on your skin Diarrhea Fever Trouble sleeping General Orthopedic Discharge Instructions The following instructions have been prepared to help you when you leave the hospital. These guidelines are for the post-surgery period. Activity: Ease into normal activity as tolerated. Medications: see medication instructions. Please be sure to read and understand the information provided by your pharmacy. Ask your Pharmacist if any questions. Call Your Doctor for: -Excessive bleeding/swelling of incision -Fever with temperature above 100 oF Contact your surgeon's office (Dr Nichols), to set up an appointment in 2-3 weeks, or if you have any problems or questions. Attestation: I spent 45 minutes on pt discharge. OP NOTE Observed: 05/19/2018 Status: F Source: [facility] 9:04 AM SYSTEM REPOSITORY PATIENT: KAVON HEARN ADMISSION DATE: 05/14/2018 SURGERY DATE: 05/14/2018 DATE OF : 1955 AGE: 62 ADMITTING PHYSICIAN: Naila Espinosa DO ATTENDING PHYSICIAN: Oz Nichols MD DICTATING PHYSICIAN: Oz Nichols MD OPERATIVE RECORD PROCEDURES: 1. OPEN TREATMENT OF T8 EXTENSION TYPE FRACTURE. 2. POSTERIOR SPINAL FUSION T4-T11 (7 LEVELS). 3. POSTERIOR SEGMENTAL INSTRUMENTATION, T4-T11 (8 SEGMENTS). 4. LAMINECTOMY FOR EVACUATION OF HEMATOMA AND BIOPSY T8. 5. LAMINECTOMY FOR EVACUATION OF HEMATOMA AND UNDERLYING DEGENERATIVE CHANGE T5, T6, T7, T9, AND T10. 6. USE OF INTRAOPERATIVE NAVIGATION. 7. SPINAL CORD MONITORING. PREOPERATIVE DIAGNOSES: 1. Complete spinal cord injury. 2. T8 extension fracture. 3. Epidural hematoma, T5-T10. 4. Severe spinal stenosis, C5-T10. 5. Ankylosing spondylitis. 6. Osteopenia. POSTOPERATIVE DIAGNOSES: 1. Complete spinal cord injury. 2. T8 extension fracture. 3. Epidural hematoma, T5-T10. 4. Severe spinal stenosis, C5-T10. 5. Ankylosing spondylitis. 6. Osteopenia. ANESTHESIA: ICING AND GLAZE MAKER: Brent Maharaj, PGY-3. MEDICATIONS OBTAINED: Ancef 2 g (re-dosed at 4 hours), 1 g of TXA prior to skin incision and another gram after the fascia was closed. ESTIMATED BLOOD LOSS: 1300 mL. URINE OUTPUT: 750 mL. FLUIDS: Crystalloid 3000 mL, albumin 200 mL. 2 units of packed red blood cells totalling 600 mL, 1 pack of platelets totalling 300 mL. SPECIMENS: Epidural hematoma collection sent for pathology. IMPLANTS: 1. NuVasive Reline open thoracolumbar screw system. 2. Use of Bendini intraoperative sue contouring system. INDICATIONS FOR PROCEDURE: The patient is a 62-year-old gentleman with a history of alcohol abuse and ankylosing spondylitis, who presented at an outside hospital in [place], [place] on May 11. He complained of significant right hip pain in addition to minor back pain at that time. He was admitted to the hospital on but his hip was actually not fixed until May 13, 2018. The hip surgery went without complications and when the physician assistant curator went on rounds to the patient in the morning of Mehran 22nd, he was found to have no sensation or motor function below the level of his umbilicus. I was called emergently and asked them to obtain a stat MRI scan down at the [facility], as they were available and in house. They did this and he was found to have a quite sizable epidural hematoma from the T4-T5 disk space down to the T10 vertebral body. Upon reviewing these images, I advised the attending physician at [facility] to [facility] the patient for her urgent surgical decompression. Upon arrival I had a long conversation with the patient. I explained to him that he had a complete spinal cord injury, albeit he was still in spinal shock as bulbocavernosus reflex was not present. I went over the risks and benefits of the surgery including that the main goal of surgery would be to stabilize this fracture at T8. Additionally, we had evacuated the hematoma which extended many levels of spinal cord, but given the extent of his injury, the likelihood of recovery was very low. I advised him that decompression was to prevent things from getting worse, in addition to give his spinal cord to best chance. I voiced that there were extensive risks of surgery, which are detailed in the consultation note and were verbally acknowledged by the patient. After all the above risks and benefits were reviewed, the patient did elect to proceed with surgery. He did not have any family present with him; however, I was able to contact a friend which he gave me as his next of kin and his name is Vida Isaac. Again, I reviewed with him the risks and benefits of surgery, which are clearly documented in the initial consult note extensively. DESCRIPTION OF PROCEDURE: The patient was met in the preop holding where the correct operative site was identified and marked. Again, all questions were answered and the patient was transferred back to the operating room #4 at [facility]. The patient was intubated without complication using a [place] scope. He was rolled prone onto the flat Leif table with a Nura frame in place, in effort to preserve his kyphosis from his underlying ankylosing spondylitis. Adequate blankets were placed under his neck, as he has a significant amount of kyphosis there as well. Attempt was made to have the arms at the standard 90-90 fashion at abduction facing the anesthesia; however, he had significant stiffness of his left shoulder, thus the decision was made to tuck the arms to keep them straight. The use of spinal cord monitoring was also employed and the leads were hooked up to ensure upper extremity SSEPs throughout the case. After the patient was well-padded and placed in a satisfactory position prone on the operating room table, the patient was then thoroughly prepped in the standard sterile orthopedic fashion using first chlorhexidine solution, followed by ChloraPrep. A time- out was called. All parties were in agreement. After adequate dry time, the drapes were placed. Using a 10 blade scalpel centered over the appropriate target vertebral bodies from T4-T11, the skin was incised. Bovie electrocautery was then used to perform subperiosteal dissection bilaterally from T4-T11. It should be noted that significant bleeding was encountered given the patient's very low platelets prior to surgery. Per the outside records, the patient's preoperative platelets were roughly 60,000 and he received a 5 pack of platelets prior to surgery. Rebecca Houstonpiedad was then brought into the field to control intraoperative hemostasis. After the posterior elements of the vertebral bodies from T4-T11 were exposed, a spinous process clamp was placed on T11 and directed caudally. Intraoperative navigation was then brought in for localization, as well as for the preoperative localization. Using alternating spinal needles in addition to the spinous process clamp, the 3 intraoperative spins were obtained to confirm levels. We were also able to use the appearance of the fracture at the T8 level to localize our vertebral body exposure. After the intraoperative navigation spin was performed, the stealth unit was brought in and the screws were placed sequentially from T4-T11. It should be noted that the right-sided screw at T4 was found to have a medial breach, and thus the screw was omitted. The pedicles were very small measuring roughly 3.8 to 4 mm on the axial imaging on the intraoperative navigation, but we were able to place 4.5 mm screws using the standard in-out-in technique. The screws were skipped at the T8 level given the fracture was right at the base of the pedicle and the fixation was tenuous. After all screws were placed, a second navigation spin was performed to confirm adequate placement of all screws. The right-sided screws at the cephalad aspect of the construct, most notably at T5, T6, and T7, were not able to have visualized bone between the screw and the medial wall of the pedicle. All the screws were removed and the medial wall sounded meticulously, and found to not have a breach. After placement of all hardware, the Bendini platform was then brought in to contour the sue to the specifications from T4-T11. This was placed without complication. After the rods were placed, the wound was then copiously irrigated with warm normal saline solution. All hemostasis was confirmed on the torres prior to laminectomy. At this time, the posterior elements of T5-T10 were then removed using a Leksell rongeur. Then, using alternating 3 mm matchstick bur in addition to size 1 and 2 Kerrison punches and a small 3 upgoing curette, the lamina was removed at these levels. Upon removal of the bone and the underlying degenerative ligamentum flavum, the epidural hematoma was found to be compressive at all levels from T5 through T10. There was also significant underlying degenerative change given the amount of facet arthritis and ligamentum flavum hypertrophy. After complete decompression of the spinal cord at the 6 levels documented above, the wound was then copiously irrigated with warm normal saline solution. A significant amount of SurgiFlo was then applied in the epidural space to control epidural bleeders in addition to Gel-Foam and bone wax. After all this was performed, the wound was then copiously irrigated again and assessed that there were no residual bleeding areas. This was certainly found to be the case and the spinal cord was found to be decompressed. A valsalva maneuver was performed and there was no evidence of CSF leak. There was also no evidence of CSF leak at the T4 site of the medial breach dictated previously. Two deep drains size 10-Vietnamese round were then placed deep to the fascia. Vancomycin powder 2 g were also applied deep to the fascia. The fascia was then approximated using #1 Vicryl suture. The deep dermal layer was approximated using 2-0 Vicryl suture and the subcuticular was closed using 3-0 Vicryl suture. A Dermabond Prineo dressing was then applied over the wound and adequate drying time allowed. Drain sponges were also applied with Steri-Strips, used to fixate the drain tubes into the skin. A sterile dressing was applied and the patient was flipped back into the supine position and extubated without complication. He was transferred back to the intensive care unit for close hemodynamic monitoring. There were no complications of the case. We did send the specimen detailed above to the lab for further testing. Alexis Job ID: [id number] Oz Nichols MD DOD:05/19/2018 09:04 A BPI/lorenk DOT:05/19/2018 10:50 A Job Number: [id number] Document Number: [id number] cc: Oz Nichols MD [address] [facility] [id number] VL VENOUS DUPLEX US Observed: 05/19/2018 Status: F Source: [facility] LOWER EXT BILATERAL 7:44 AM SYSTEM REPOSITORY Patient Name: KAVON HEARN Ultrasound Exam Date/Time 05/19/2018 08:19:05 EST Exam VL Venous Duplex US Lower Ext Bilateral Ordering Physician MD JESSIE, MARK SPANN Accession Number [id number] CPT4 Codes 37596 () Reason For Exam Edema Report [facility] --- Lower Extremity Venous Duplex Report Patient Name: Kavon Hearn : 1955 (62yrs) Study Date: 05/19/2018 Age: 62 Account: [id number] Gender: M Loc: 1323 BP: Ordering: Mark Escobar Technologist: Ordering Physician: Mark Escobar Kiln Loader: Mateo Dee Clarence, [facility] Interpreting Physician: Eliel Ingram --- Location: [facility] --- INDICATIONS: Edema. --- CONCLUSIONS 1. Normal venous duplex. --- IMPRESSIONS: These findings are negative for deep or superficial vein thrombosis in the bilateral lower extremities. --- STUDY DATA: Complete lower extremity venous duplex evaluation. Birthdate: Patient birthdate: 1955. Age: Patient is 62 yr old. Sex: Gender: male. Ethnicity: Ethnicity: white. Doppler flow study including spectral analysis, color and fuller scale imaging. Patient status: Inpatient. Procedure: A vascular evaluation was performed. The images were obtained using a Bueroservice24 E9 vascular ultrasound machine. --- VENOUS FLOW AND IMAGING: + +-------+ --+ !Location !Overall!Flow properties ! + +-------+ --+ !Right common femoral !Patent !Normal phasicity; spontaneous; normal ! ! ! !augmentation; compressible ! + +-------+ --+ !Right saphenofemoral junction!Patent !Compressible ! + +-------+ --+ !Right profunda femoral !Patent !Normal phasicity; spontaneous; normal ! ! ! !augmentation ! + +-------+ --+ !R femoral proximal !Patent !Compressible ! + +-------+ --+ !R femoral mid !Patent !Normal phasicity; spontaneous; normal ! ! ! !augmentation; compressible ! + +-------+ --+ !R femoral distal !Patent !Compressible ! + +-------+ --+ !Right popliteal !Patent !Normal phasicity; spontaneous; normal ! ! ! !augmentation; compressible ! + +-------+ --+ !Right gastrocnemius !Patent !Compressible ! + +-------+ --+ !Right posterior tibial !Patent !Compressible ! + +-------+ --+ !Right peroneal !Patent !Compressible ! + +-------+ --+ !Right soleal !Patent !Compressible ! + +-------+ --+ !Right greater saphenous !Patent !Compressible ! + +-------+ --+ !Left common femoral !Patent !Normal phasicity; spontaneous; normal ! ! ! !augmentation; compressible ! + +-------+ --+ !Left saphenofemoral junction !Patent !Compressible ! + +-------+ --+ !Left profunda femoral !Patent !Normal phasicity; spontaneous; normal ! ! ! !augmentation ! + +-------+ --+ !L femoral proximal !Patent !Compressible ! + +-------+ --+ !L femoral mid !Patent !Normal phasicity; spontaneous; normal ! ! ! !augmentation; compressible ! + +-------+ --+ !L femoral distal !Patent !Compressible ! + +-------+ --+ !Left popliteal !Patent !Normal phasicity; spontaneous; normal ! ! ! !augmentation; compressible ! + +-------+ --+ !Left gastrocnemius !Patent !Compressible ! + +-------+ --+ !Left posterior tibial !Patent !Compressible ! + +-------+ --+ !Left peroneal !Patent !Compressible ! + +-------+ --+ !Left soleal !Patent !Compressible ! + +-------+ --+ !Left greater saphenous !Patent !Compressible ! + +-------+ --+ Electronically signed by: Eliel Ingram [id number] Final Dictated: 05/19/2018 2:39 pm Dictating Physician: ELIEL INGRAM Signed Date and Time: 05/19/2018 2:39 pm Signed by: ELIEL INGRAM HEMOGRAM W/ AUTODIFF Collected: 05/19/2018 Status: F Source: [facility] 5:59 AM SYSTEM REPOSITORY TYPE CODE TESTS RESULT OUT OF RANGE REFERENCE UNITS LAB IWBC 3.6-10.7 10*3/uL WBC Normal 9.5 LAB RBC 4.40-5.90 10*6/uL Low RBC 2.66 LAB HGB 13.0-18.0 g/dL Low Hemoglobin 8.6 LAB HCT 40.0-52.0 % Low Hematocrit 25.1 LAB MCV 80.0-98.0 fL MCV Normal 94.4 LAB MCH 26.0-34.0 pg MCH Normal 32.3 LAB MCHC 32.0-36.0 % MCHC Normal 34.2 LAB RDW 11.5-14.5 % High RDW 14.6 LAB PLT 140-440 10*3/uL Platelet Normal 210 LAB MPV 7.4-10.4 fL MPV Normal 8.9 Performed By: #### TIMUR SERRATO #### [facility] [address] [place] [address] MANUAL DIFF Collected: 05/19/2018 Status: F Source: [facility] 5:59 AM SYSTEM REPOSITORY TYPE CODE TESTS RESULT OUT OF RANGE REFERENCE UNITS LAB NEUTR % Seg Neutrophils 68 LAB BANDS % Bands 9 LAB LYMPH % Lymphocytes 12 LAB MONOC % Monocytes 5 LAB EO 1-6 % Low Eosinophils 0 LAB BASO 0-2 % Basophils Normal 0 LAB META 0-1 % Metamyelocytes Normal 1 LAB MYELO <1 % Myelocytes Abnormal 3.0 LAB PROMY <1 % Promyelocytes Abnormal 2 LAB ANCM 2.2-8.2 10*3/uL Abs Neutrophile Normal Cnt 7.3 LAB ALCM 1.1-4.5 10*3/uL Abs Lymph Cnt Normal 1.1 LAB AMCM 0.2-1.1 10*3/uL Abs Monocyte Cnt Normal 0.5 LAB AECM 0.0-0.5 10*3/uL Abs Eosin Cnt Normal 0.0 LAB ABCM 0.0-0.2 10*3/uL Abs Baso Cnt Normal 0.0 LAB RBMOR NA RBC Morphology ABNORMAL LAB ANISO NA Anisocytosis SLIGHT LAB POIK NA Poikilocytosis SLIGHT LAB MICRO NA Microcytosis SLIGHT LAB POLYC NA Polychromasia MARKED LAB TEARD NA Tear Drop Forms SLIGHT LAB LIMIT NA Cells counted 100 LAB DIFCM NA Comment: SLIDE SCANNED Performed By: #### MD AMAIFF #### [facility] [address] [place] [address] HEMOGRAM W/ AUTODIFF Collected: 05/18/2018 Status: F Source: [facility] 12:31 AM SYSTEM REPOSITORY TYPE CODE TESTS RESULT OUT OF RANGE REFERENCE UNITS LAB IWBC 3.6-10.7 10*3/uL High WBC 11.1 LAB RBC 4.40-5.90 10*6/uL Low RBC 2.47 LAB HGB 13.0-18.0 g/dL Low Hemoglobin 7.9 LAB HCT 40.0-52.0 % Low Hematocrit 23.2 LAB MCV 80.0-98.0 fL MCV Normal 93.7 LAB MCH 26.0-34.0 pg MCH Normal 31.8 LAB MCHC 32.0-36.0 % MCHC Normal 33.9 LAB RDW 11.5-14.5 % RDW Normal 13.6 LAB PLT 140-440 10*3/uL Platelet Normal 217 LAB MPV 7.4-10.4 fL MPV Normal 8.9 Performed By: #### ELLEN SERRATO MDIFF #### [facility] [address] [place] [phone] BASIC METABOLIC PANEL Collected: 05/18/2018 Status: F Source: [facility] 12:31 AM SYSTEM REPOSITORY TYPE CODE TESTS RESULT OUT OF RANGE REFERENCE UNITS LAB NA3 135-145 mmol/L Sodium Normal 140 LAB K3 3.5-5.1 mmol/L Normal Potassium 3.9 LAB CL3 98-107 mmol/L High Chloride 108 LAB CO23 22-30 mmol/L Carbon Normal Dioxide 30 LAB ANIN3 NA Anion Gap 3 LAB GLUC3 70-100 mg/dL Glucose Normal 95 LAB BUN3 7-20 mg/dL Urea Normal Nitrogen 20 LAB CRET3 0.52-1.25 mg/dL Normal Creatinine 0.63 LAB GF3BR >60 mL/min eGFR > 60.0 LAB GF3WR >60 mL/min eGFR OTHER > 60.0 Result Comment: Source- MDRD equation with creatinine calibration to IDMS(NKDEP) eGFR not recommended for drug dose adjustment LAB CA3 8.4-10.4 mg/dL Low Calcium 7.1 Performed By: #### ELLEN SERRATO MDIFF #### [facility] [address] [place] [phone] MANUAL DIFF Collected: 05/18/2018 Status: F Source: [facility] 12:31 AM SYSTEM REPOSITORY TYPE CODE TESTS RESULT OUT OF REFERENCE UNITS RANGE LAB NEUTR 40-80 % Seg Neutrophils Normal 59 LAB BANDS 0-3 % Bands Normal 1 LAB LYMPH 20-40 % Lymphocytes Normal 25 LAB MONOC 2-10 % Monocytes High 15 LAB EO 1-6 % Low Eosinophils 0 LAB BASO 0-2 % Basophils Normal 0 LAB ANCM 2.2-8.2 10*3/uL Abs Neutrophile Normal Cnt 6.7 LAB ALCM 1.1-4.5 10*3/uL Abs Lymph Cnt Normal 2.8 LAB AMCM 0.2-1.1 10*3/uL Abs Monocyte Cnt High 1.7 LAB AECM 0.0-0.5 10*3/uL Abs Eosin Cnt Normal 0.0 LAB ABCM 0.0-0.2 10*3/uL Abs Baso Cnt Normal 0.0 LAB RBMOR NA RBC Morphology ABNORMAL LAB POIK NA Poikilocytosis Slight LAB POLYC NA Polychromasia Slight LAB OVAL NA Ovalocytes Slight LAB SCHIS NA Schistocytes Slight LAB TEARD NA Tear Drop Forms Slight LAB LIMIT NA Cells counted 100 Performed By: #### HEMDF, BMP3, MDIFF #### [employer] [address] [place] [phone] CR ABDOMEN AP Observed: 05/17/2018 Status: F Source: [facility] 9:33 AM SYSTEM REPOSITORY Patient Name: KAVON HEARN Diagnostic Radiology Exam Date/Time 05/17/2018 09:29:14 EST Exam CR Abdomen AP Ordering Physician CHIRAG HOLCOMB JULIE Accession Number [id number] CPT4 Codes 10638 () Reason For Exam pain - please include pelvis Report ABDOMEN: 05/17/2018 at 0921 hours CLINICAL INDICATION: Abdominal pain. TECHNIQUE: Supine AP view of abdomen and pelvis. COMPARISON: 05/16/2018. FINDINGS: Right-sided abdominal catheter has been removed. Inferior aspect of pelvis is not included on exam. No overt free air. The bowel gas pattern is unremarkable. Probable cholelithiasis. 3 mm calculus overlies the right inferior kidney. There is no organomegaly. Silhouette shadows are silhouetted suggesting possible ascites. Inferior thoracic spinal rods. Anterior ligamentous calcification and ossification of longitudinal ligaments suggest ankylosing spondylitis. IMPRESSION: 1. No acute abdominal process. 2. Cholelithiasis and right renal calculus, unchanged. 3. Ascites cannot be excluded. Report Dictated on Final Dictated: 05/17/2018 9:33 am Dictating Physician: ELIAS MORGAN DO, I Signed Date and Time: 05/17/2018 9:38 am Signed by: ELIAS MORGAN DO, I Transcribed Date and Time: 05/17/2018 9:33 CR CHEST PORTABLE Observed: 05/17/2018 Status: F Source: [facility] 7:43 AM SYSTEM REPOSITORY Patient Name: KAVON HEARN Diagnostic Radiology Exam Date/Time 05/17/2018 07:03:28 EST Exam CR Chest Portable Ordering Physician MD ESCOBAR ANDREW MICHAEL Accession Number [id number] CPT4 Codes 55430 () Reason For Exam dyspnea Report PORTABLE CHEST CLINICAL INDICATION: Dyspnea. COMPARISON: None. TECHNIQUE: A single frontal view of thorax was obtained and reviewed. IMPRESSION: 1. Lines/ tubes/ devices: None. 2. Lungs and Pleura: Minimal left basilar atelectasis. No infiltrate or mass. No pneumothorax or pleural effusion. 3. Heart and mediastinum: Normal cardiomediastinal margin. 4. Bones: Thoracic degenerative spondylosis. Thoracic spine pedicle screws and Osullivan rods are identified. Report Dictated on Final Dictated: 05/17/2018 7:43 am Dictating Physician: ELIAS MORGAN DO, I Signed Date and Time: 05/17/2018 7:44 am Signed by: ELIAS MORGAN DO, I Transcribed Date and Time: 05/17/2018 7:43 HEMOGRAM W/ AUTODIFF Collected: 05/17/2018 Status: F Source: [facility] 1:32 AM SYSTEM REPOSITORY TYPE CODE TESTS RESULT OUT OF RANGE REFERENCE UNITS LAB IWBC 3.6-10.7 10*3/uL High WBC 11.4 LAB RBC 4.40-5.90 10*6/uL Low RBC 2.35 LAB HGB 13.0-18.0 g/dL Low Hemoglobin 7.5 LAB HCT 40.0-52.0 % Low Hematocrit 21.9 LAB MCV 80.0-98.0 fL MCV Normal 93.0 LAB MCH 26.0-34.0 pg MCH Normal 32.1 LAB MCHC 32.0-36.0 % MCHC Normal 34.5 LAB RDW 11.5-14.5 % RDW Normal 14.1 LAB PLT 140-440 10*3/uL Platelet Normal 168 LAB MPV 7.4-10.4 fL MPV Normal 9.9 Performed By: #### ELLEN SERRATO MDIFF #### [facility] [address] [place] [phone] BASIC METABOLIC PANEL Collected: 05/17/2018 Status: F Source: [facility] 1:32 AM SYSTEM REPOSITORY TYPE CODE TESTS RESULT OUT OF RANGE REFERENCE UNITS LAB NA3 135-145 mmol/L Sodium Normal 140 LAB K3 3.5-5.1 mmol/L Normal Potassium 4.1 LAB CL3 98-107 mmol/L Chloride Normal 107 LAB CO23 22-30 mmol/L Carbon Normal Dioxide 28 LAB ANIN3 NA Anion Gap 6 LAB GLUC3 70-100 mg/dL High Glucose 175 LAB BUN3 7-20 mg/dL High Urea Nitrogen 22 LAB CRET3 0.52-1.25 mg/dL Normal Creatinine 0.66 LAB GF3BR >60 mL/min eGFR > 60.0 LAB GF3WR >60 mL/min eGFR OTHER > 60.0 Result Comment: Source- MDRD equation with creatinine calibration to IDMS(NKDEP) eGFR not recommended for drug dose adjustment LAB CA3 8.4-10.4 mg/dL Low Calcium 7.2 Performed By: #### ELLEN SERRATO MDIFF #### [facility] [address] [place] [phone] MANUAL DIFF Collected: 05/17/2018 Status: F Source: [facility] 1:32 AM SYSTEM REPOSITORY TYPE CODE TESTS RESULT OUT OF REFERENCE UNITS RANGE LAB NEUTR % Seg Neutrophils 72 LAB BANDS % Bands 6 LAB LYMPH % Lymphocytes 14 LAB MONOC % Monocytes 8 LAB EO 1-6 % Low Eosinophils 0 LAB BASO 0-2 % Basophils Normal 0 LAB ANCM 2.2-8.2 10*3/uL Abs High Neutrophile Cnt 8.9 LAB ALCM 1.1-4.5 10*3/uL Abs Lymph Normal Cnt 1.6 LAB AMCM 0.2-1.1 10*3/uL Abs Normal Monocyte Cnt 0.9 LAB AECM 0.0-0.5 10*3/uL Abs Eosin Normal Cnt 0.0 LAB ABCM 0.0-0.2 10*3/uL Abs Baso Normal Cnt 0.0 LAB NRBCR -1-0 /100{WBCs} NRBC High 2 Result Comment: [place] (<60 days) 1-10 Adult <1 LAB RBMOR NA RBC Morphology ABNORMAL LAB POIK NA Poikilocytosis SLIGHT LAB POLYC NA Polychromasia MODERATE LAB TEARD NA Tear Drop Forms SLIGHT LAB LIMIT NA Cells counted 100 LAB DIFCM NA Comment: SLIDE SCANNED Performed By: #### HEMMAIA, TARAH3, MDIFF #### [employer] [address] [place] [phone] CR ABDOMEN AP Observed: 05/16/2018 Status: F Source: [facility] 2:15 PM SYSTEM REPOSITORY Patient Name: KAVON HEARN Diagnostic Radiology Exam Date/Time 05/16/2018 14:05:38 EST Exam CR Abdomen AP Ordering Physician ARETHA OG Accession Number [id number] CPT4 Codes 54869 () Reason For Exam abdominal pain Report Examination: Supine abdomen/KUB Clinical Indication: Abdominal pain Comparison: None Findings: One supine view of the upper to mid abdomen excluding the far right abdomen and lower pelvis. Images demonstrate a nonspecific, nonobstructive bowel gas appearance. Catheter overlies the gastric bubble. There is no evidence for bowel dilatation. There is air and stool seen throughout the bowel. Free air and air-fluid levels are not adequately assessed without upright or decubitus view. No gross large volume free air is noted on this examination. Calcifications right upper abdomen may represent cholelithiasis. There is a calcification overlying the lower right kidney measuring 4 mm. Degenerative changes within the spine. Suggestion of fusion of the spinous processes possibly ankylosing spondylitis. There is lower thoracic fusion hardware incompletely evaluated. Impression: Limited examination omitting the far right abdomen and lower pelvis. Nonspecific, nonobstructive bowel gas appearance. Findings suggesting cholelithiasis. Calcification likely renal also overlies the lower pole right kidney 0.4 cm. Report Dictated on Final Dictated: 05/16/2018 2:15 pm Dictating Physician: MD ESPARZA ANTHONY J Signed Date and Time: 05/16/2018 2:17 pm Signed by: MD ESPARZA ANTHONY J Transcribed Date and Time: 05/16/2018 2:15 VL VENOUS DUPLEX US Observed: 05/16/2018 Status: F Source: [facility] LOWER EXT BILATERAL 12:09 PM SYSTEM REPOSITORY Patient Name: KAVON HEARN Ultrasound Exam Date/Time 05/16/2018 12:31:48 EST Exam VL Venous Duplex US Lower Ext Bilateral Ordering Physician ARETHA OG Accession Number [id number] CPT4 Codes 26318 () Reason For Exam Edema Report [facility] --- Lower Extremity Venous Duplex Report Patient Name: Kavon Hearn : 1955 Study Date: 05/16/2018 (62yrs) Age: 62 Account: [id number] Gender: M Loc: 1323 BP: Ordering: Aretha Og Technologist: Ordering Physician: Aretha Og Kiln Loader: Joni Abbasi RVT, [facility] Interpreting Physician: Joni Peralta MD --- Location: [facility] --- INDICATIONS: Edema. bilateral calf edema. --- CONCLUSIONS 1. This is a normal study. --- IMPRESSIONS: - This is a normal study. - These findings are negative for deep or superficial vein thrombosis in the bilateral lower extremities. --- STUDY DATA: Complete lower extremity venous duplex evaluation. Birthdate: Patient birthdate: 1955. Age: Patient is 62 yr old. Sex: Gender: male. Ethnicity: Ethnicity: white. Doppler flow study including spectral analysis, color and fuller scale imaging. Patient status: Inpatient. Procedure: A vascular evaluation was performed. The images were obtained using a [id number] vascular ultrasound machine. --- VENOUS FLOW AND IMAGING: + +-------+ --+ !Location !Overall!Flow properties ! + +-------+ --+ !Right common femoral !Patent !Normal phasicity; spontaneous; normal ! ! ! !augmentation; compressible ! + +-------+ --+ !Right saphenofemoral junction!Patent !Compressible ! + +-------+ --+ !Right profunda femoral !Patent ! --! + +-------+ --+ !R femoral proximal !Patent !Compressible ! + +-------+ --+ !R femoral mid !Patent !Normal phasicity; spontaneous; normal ! ! ! !augmentation; compressible ! + +-------+ --+ !R femoral distal !Patent !Compressible ! + +-------+ --+ !Right popliteal !Patent !Normal phasicity; spontaneous; normal ! ! ! !augmentation; compressible ! + +-------+ --+ !Right gastrocnemius !Patent !Compressible ! + +-------+ --+ !Right posterior tibial !Patent !Compressible ! + +-------+ --+ !Right peroneal !Patent !Compressible ! + +-------+ --+ !Right soleal !Patent !Compressible ! + +-------+ --+ !Right greater saphenous !Patent !Compressible ! + +-------+ --+ !Left common femoral !Patent !Normal phasicity; spontaneous; normal ! ! ! !augmentation; compressible ! + +-------+ --+ !Left saphenofemoral junction !Patent !Compressible ! + +-------+ --+ !Left profunda femoral !Patent ! --! + +-------+ --+ !L femoral proximal !Patent !Compressible ! + +-------+ --+ !L femoral mid !Patent !Normal phasicity; spontaneous; normal ! ! ! !augmentation; compressible ! + +-------+ --+ !L femoral distal !Patent !Compressible ! + +-------+ --+ !Left popliteal !Patent !Normal phasicity; spontaneous; normal ! ! ! !augmentation; compressible ! + +-------+ --+ !Left gastrocnemius !Patent !Compressible ! + +-------+ --+ !Left posterior tibial !Patent !Compressible ! + +-------+ --+ !Left peroneal !Patent !Compressible ! + +-------+ --+ !Left soleal !Patent !Compressible ! + +-------+ --+ !Left greater saphenous !Patent !Compressible ! + +-------+ --+ Electronically signed by: Joni Peralta MD [id number]:38 Final Dictated: 05/17/2018 12:29 pm Dictating Physician: JONI PERALTA Signed Date and Time: 05/17/2018 12:29 pm Signed by: JONI PERALTA HEMOGRAM W/ AUTODIFF Collected: 05/16/2018 Status: F Source: [facility] 6:17 AM SYSTEM REPOSITORY TYPE CODE TESTS RESULT OUT OF REFERENCE UNITS RANGE LAB IWBC 3.6-10.7 10*3/uL WBC Normal 10.2 LAB RBC 4.40-5.90 10*6/uL Low RBC 2.26 LAB HGB 13.0-18.0 g/dL Low Hemoglobin 7.3 LAB HCT 40.0-52.0 % Low Hematocrit 20.7 LAB MCV 80.0-98.0 fL MCV Normal 91.8 LAB MCH 26.0-34.0 pg MCH Normal 32.1 LAB MCHC 32.0-36.0 % MCHC Normal 35.0 LAB RDW 11.5-14.5 % RDW Normal 13.4 LAB PLT 140-440 10*3/uL Low Platelet 137 LAB MPV 7.4-10.4 fL MPV Normal 9.4 LAB GRAN% 40.0-80.0 % Granulocytes Normal 78.2 LAB LYMP% 20.0-40.0 % Low Lymphocytes 11.1 LAB MONO% 2.0-10.0 % Monocytes High 10.4 LAB EOS% 1.0-6.0 % Low Eosinophils 0.0 LAB BAS% 0.0-2.0 % Basophils Normal 0.3 LAB ANC 1.8-7.0 10*3/uL Abs High Neutrophile Cnt 8.0 LAB ALC 1.0-4.3 10*3/uL Abs Lymph Cnt Normal 1.1 LAB AMC 0.0-0.8 10*3/uL Abs Monocyte High Cnt 1.1 LAB AEC 0.0-0.5 10*3/uL Abs Eosin Cnt Normal 0.0 LAB ABC 0.0-0.2 10*3/uL Abs Baso Cnt Normal 0.0 Performed By: #### HEMDF, ICA, BMP3, MG3, PHOS3 #### [facility] [address] [place] [phone] CALCIUM,IONIZED Collected: 05/16/2018 Status: F Source: [facility] 6:17 AM SYSTEM REPOSITORY TYPE CODE TESTS RESULT OUT OF RANGE REFERENCE UNITS LAB ICAL 4.30-5.20 mg/dL Low Ionized 4.00 Ca,Measured LAB PHICA 7.31-7.46 NA Normal pH, Ionized 7.39 Calcium Performed By: #### HEMDF, ICA, BMP3, MG3, PHOS3 #### [facility] [address] [place] [phone] BASIC METABOLIC PANEL Collected: 05/16/2018 Status: F Source: [facility] 6:17 AM SYSTEM REPOSITORY TYPE CODE TESTS RESULT OUT OF RANGE REFERENCE UNITS LAB NA3 135-145 mmol/L Normal Sodium 142 Result Comment: NOTE: New Sodium Reference Range effective 2018 @ 10:00 LAB K3 3.5-5.1 mmol/L Normal Potassium 3.9 LAB CL3 98-107 mmol/L Normal Chloride 107 LAB CO23 22-30 mmol/L Normal Carbon Dioxide 29 LAB ANIN3 NA Anion Gap 6 LAB GLUC3 70-100 mg/dL High Glucose 141 LAB BUN3 7-20 mg/dL High Urea Nitrogen 23 LAB CRET3 0.52-1.25 mg/dL Normal Creatinine 0.66 LAB GF3BR >60 mL/min eGFR > 60.0 LAB GF3WR >60 mL/min eGFR OTHER > 60.0 Result Comment: Source- MDRD equation with creatinine calibration to IDMS(NKDEP) eGFR not recommended for drug dose adjustment LAB CA3 8.4-10.4 mg/dL Low Calcium 7.4 Performed By: #### HEMDF, ICA, BMP3, MG3, PHOS3 #### [facility] [address] [place] [address] MAGNESIUM Collected: 05/16/2018 Status: F Source: [facility] 6:17 AM SYSTEM REPOSITORY TYPE CODE TESTS RESULT OUT OF RANGE REFERENCE UNITS LAB MG3 1.6-2.3 mg/dL Normal Magnesium 2.2 Performed By: #### HEMDF, ICA, BMP3, MG3, PHOS3 #### [facility] [address] [place] [phone] PHOSPHORUS Collected: 05/16/2018 Status: F Source: [facility] 6:17 AM SYSTEM REPOSITORY TYPE CODE TESTS RESULT OUT OF RANGE REFERENCE UNITS LAB PHOS3 2.5-4.5 mg/dL Normal Phosphorus 2.5 Performed By: #### HEMDF, ICA, BMP3, MG3, PHOS3 #### [facility] [address] [place] [phone] HEMOGRAM Collected: 05/15/2018 Status: F Source: [facility] 3:34 PM SYSTEM REPOSITORY TYPE CODE TESTS RESULT OUT OF RANGE REFERENCE UNITS LAB IWBC 3.6-10.7 10*3/uL WBC Normal 10.4 LAB RBC 4.40-5.90 10*6/uL Low RBC 2.32 LAB HGB 13.0-18.0 g/dL Low Hemoglobin 7.5 LAB HCT 40.0-52.0 % Low Hematocrit 21.1 LAB MCV 80.0-98.0 fL MCV Normal 90.6 LAB MCH 26.0-34.0 pg MCH Normal 32.2 LAB MCHC 32.0-36.0 % MCHC Normal 35.5 LAB RDW 11.5-14.5 % RDW Normal 13.1 LAB PLT 140-440 10*3/uL Low Platelet 120 LAB MPV 7.4-10.4 fL MPV Normal 9.5 Performed By: #### HEMOG #### [facility] [address] [place] [address] VIT D 25-OH, TOTAL Collected: 05/15/2018 Status: F Source: [facility] 3:34 PM SYSTEM REPOSITORY TYPE CODE TESTS RESULT OUT OF RANGE REFERENCE UNITS LAB VD25H 30-100 ng/mL Low Vit D < 13 25-OH, Total Result Comment: Therapy is based on measurement of Total 25-OHD with the following classification levels: Less than 20 ng/mL: Indicative of Vit D deficiency 20-30 ng/mL: Suggests Vit D insufficiency Optimal: Greater than or equal to 30 ng/mL Test performed by [employer] Competitive Immunoassay, measuring Total Vitamin D, not individual fractions. Performed By: #### VD25H #### [facility] [address] [place] [address] HEMOGRAM Collected: 05/15/2018 Status: F Source: [facility] 2:42 AM SYSTEM REPOSITORY TYPE CODE TESTS RESULT OUT OF RANGE REFERENCE UNITS LAB IWBC 3.6-10.7 10*3/uL WBC Normal 8.2 LAB RBC 4.40-5.90 10*6/uL Low RBC 2.34 LAB HGB 13.0-18.0 g/dL Low Hemoglobin 7.5 LAB HCT 40.0-52.0 % Low Hematocrit 21.1 LAB MCV 80.0-98.0 fL MCV Normal 90.3 LAB MCH 26.0-34.0 pg MCH Normal 32.2 LAB MCHC 32.0-36.0 % MCHC Normal 35.6 LAB RDW 11.5-14.5 % RDW Normal 13.2 LAB PLT 140-440 10*3/uL Low Platelet 87 LAB MPV 7.4-10.4 fL MPV Normal 8.6 Performed By: #### PAM HICKMAN #### [facility] [address] [address] BASIC METABOLIC PANEL Collected: 05/15/2018 Status: F Source: [facility] 2:42 AM SYSTEM REPOSITORY TYPE CODE TESTS RESULT OUT OF RANGE REFERENCE UNITS LAB NA3 135-145 mmol/L Normal Sodium 140 Result Comment: NOTE: New Sodium Reference Range effective 2018 @ 10:00 LAB K3 3.5-5.1 mmol/L Normal Potassium 4.2 LAB CL3 98-107 mmol/L High Chloride 109 LAB CO23 22-30 mmol/L Normal Carbon Dioxide 26 LAB ANIN3 NA Anion Gap 5 LAB GLUC3 70-100 mg/dL High Glucose 127 LAB BUN3 7-20 mg/dL Normal Urea Nitrogen 16 LAB CRET3 0.52-1.25 mg/dL Normal Creatinine 0.63 LAB GF3BR >60 mL/min eGFR > 60.0 LAB GF3WR >60 mL/min eGFR OTHER > 60.0 Result Comment: Source- MDRD equation with creatinine calibration to IDMS(NKDEP) eGFR not recommended for drug dose adjustment LAB CA3 8.4-10.4 mg/dL Low Calcium 7.4 Performed By: #### PAM HICKMAN #### [facility] [employer] [address] [address] Observed: 05/14/2018 Status: F Source: [facility] ii4b SURGICAL PATHOLOGY 10:31 PM SYSTEM REPOSITORY [id number] [facility] PATHOLOGY AND LABORATORY MEDICINE [address] [place] [id number] FINAL SURGICAL PATHOLOGY REPORT NAME: KAVON HEARN : 1955 62 Y Heydi ENRIQUE NO.: [id number] LOCATION: [address] [place], [place] [address] B PROCEDURE 05/14/2018 DATE: SURGEON: OZ NICHOLS M.D. RECEIVED 05/16/2018 DATE: ATTENDING: NAILA ESPINOSA DO REPORT DATE: 05/18/2018 COPIES TO: DIAGNOSIS: BLOOD CLOT, EPIDURAL, EXCISION - PORTION OF ORGANIZING BLOOD CLOT. [facility] <Sign Out Dr. Encinas> ROOSEVELT OVALLES M.D. CLINICAL INFORMATION: Not provided SPECIMEN: MASS - SMALL, EXCISION GROSS DESCRIPTION: Epidural mass Received in formalin is a segment of red-brown tissue 1.3 x 0.4 x 0.4 cm. Specimen appears to consist of blood clot. Specimen is entirely submitted as received. (1 ns, 1) JCK/SHAWN Disclaimer: The following statement applies to all immunohistochemistry, in situ hybridization, molecular studies, and immunofluorescence testing. The use of one or more reagents in the above tests is regulated as an analyte specific reagent (ASR). These tests were developed and their performance characteristics determined by the clinical laboratories of [facility]. They have not been cleared by the US Food and Drug Administration (FDA). The FDA has determined that such clearance or approval is not necessary. All the above immunostains were performed on paraffin embedded tissue. Appropriate positive and negative controls (where applicable) were run in parallel with the patient's specimen; these controls showed expected staining pattern, with acceptable intensity of staining. Immunohistochemical assays have not been validated on decalcified tissues. Results should be interpreted with caution given the raised possibility of false negativity on decalcified specimens. Professional Performing Location: [address] [address]. DEPARTMENT OF PATHOLOGY AND LABORATORY MEDICINE [facility] [place] [address] HEMOGRAM Collected: 05/14/2018 Status: F Source: [facility] 9:46 PM SYSTEM REPOSITORY TYPE CODE TESTS RESULT OUT OF RANGE REFERENCE UNITS LAB IWBC 3.6-10.7 10*3/uL WBC Normal 8.4 LAB RBC 4.40-5.90 10*6/uL Low RBC 1.92 LAB HGB 13.0-18.0 g/dL Low Alert Hemoglobin 6.3 Result Comment: repeated LAB HCT 40.0-52.0 % Low Hematocrit 17.9 LAB MCV 80.0-98.0 fL Normal MCV 93.1 LAB MCH 26.0-34.0 pg Normal MCH 32.6 LAB MCHC 32.0-36.0 % Normal MCHC 35.1 LAB RDW 11.5-14.5 % Normal RDW 12.5 LAB PLT 140-440 10*3/uL Low Platelet 99 LAB MPV 7.4-10.4 fL Normal MPV 8.3 Performed By: #### HEMOG #### [address] [address] DISCHARGE SUMMARY Observed: 05/14/2018 Status: F Source: [facility] 6:01 PM [facility] Medical Records Department [address] [place] [address] Discharge Summary 05/14/18 1400 MR#: [id number] Acct: [id number] Name: KAVON HEARN Rep #: [id number] : 1955 62 From: Sudheer Lawton MD PCP: Yang Saul MD Status: DIS IN Y Location: ME3 [id number] Discharge Date and Diagnosis Date of Admission: 05/11/18 Date of Discharge: 05/14/18 - Primary Discharge Diagnosis Active and Suspected Problems Fall (Acute) Rhabdomyolysis (Acute) Seizure (Acute) Acute dorsal epidural hematoma from T4-T10 Right hip O medullary nailing - Secondary Discharge Diagnosis Chronic Problems Ankylosing spondylitis of lumbosacral region (Chronic) Psoriasis (Chronic) Chronic neck and back pain (Chronic) 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 He fell down because his right hip twisted as he was walking on the level ground. He could not stand up or move around and was laying down for 12 hours. Patient denies loss of consciousness or hitting the head. Before fall, he was not using cane or walker but he used cane in the past for some time. Patient is not able to roll over or sit up because of severe pain. He further states he has chronic back pain and neck pain for more than 20 years with history of 5 times back injuries. He denies back surgery. His neck is in chronic flexor deformity. He is to see chiropractor in [facility] and probably some environmental services coordinator there and was put on Enbrel. He said it did not help one probably currently not following any doctor. In ED, his blood pressure was found high 195/117, but no tachycardia, tachypnea or hypoxia. Hemoglobin is 18.4, hematocrit 52.7 probably due to hemoconcentration. Urine specific gravity is normal, protein 500, CK 1000 371 suggestive of rhabdomyolysis. The patient initially was admitted on regular MedSurg floor but later was transferred to ICU after rapid response was called for seizure and was managed. I was called in the morning stat for acute lower extremity weakness with sensory loss below chest level. Patient was seen and examined 1. Acute thoracic cord compression/nerve impingement from epidural hematoma from T4-T10 level with recent T8 fracture of the body and pedicle: Neurologist was called and he advised MRI C-spine, thoracic spine with additional DWI and MRI lumbar spine. Repeat MRI brain although previous MRI brain reported as suspicion of PRESS both medial occipital lobe more than parietal lobes and posterior periventricular subarachnoid white matter. This was discussed with orthopedic surgeon Dr. Cunha, he recommended urgent transfer. Rectal exam was done and shows no or very weak anal sphincter tone. I called [facility] said patient needs urgent transfer to [facility] as they do not do urgent surgery or cord compression surgery. [facility] transfer line was called and discussed with the transfer admin secretary with exchange of information. Radiologist called for the above finding of epidural hematoma. It seems T8 fracture might have happened during fall with history of ankylosis spondylosis and arthritis and degenerative changes before admission, probably missed on x-ray but diagnosed on MRI. Hospital course, clinical findings, labs, vitals and imaging test discussed with the neurosurgeon Dr. Nichols, [facility] and he accepted the patient. Patient was life flighted through helicopter to [facility]. In meantime, 1 unit of single donor platelet transfusion in progress. New onset seizure, exact etiology unclear, probably related to metabolic derangements status post rapid response: Patient had CT head which does not show acute change or intracranial hemorrhage. There is chronic bilateral frontal lobe atrophy probably secondary to alcohol use although denies drinking heavy in the past. Neurologist has been consulted. EEG reported normal awake and drowsy EEG. No epileptiform discharges or electrographic seizures noted during the record. Patient is on Keppra 500 mg every 12 hourly 2. Right angulated, comminuted, intertrochanteric fracture, not reported on the first hip x-ray status post right cubital medullary nailing: second hip x-ray reported as Discussed with Dr. Cunha. Second postop day . On PT and OT. Discussed with the orthopedic surgeon as mentioned above 3. Hypertension, uncontrolled sinus tachycardia: Patient denies any history of coronary artery disease, CHF but he has not been following physician and also noncompliant; not taking antihypertensive medication. Blood pressure is controlled. On lisinopril 10 mg daily. Chest x-ray does not show acute change. 2D echo shows stage I diastolic dysfunction with EF 55%. 4. Increased anion gap metabolic acidosis with compensatory respiratory alkalosis, hypokalemia, hypocalcemia: This happened after seizure but not clear as it cause or effect of seizure. Calcium is replaced. Repeat ABG showed pH seven- point 350/205. Currently patient is on 2 L of oxygen. Patient has Severe hypocalcemia: 2 g calcium gluconate was given. K3.7. CO2 25, anion gap 9. Repeat calcium 6.9. 5 Fall, prior to admission most likely mechanical secondary to chronic right hip joint arthritis exacerbated with chronic lumbosacral degenerative spondylosis with rhabdomyolysis:Chronic lumbosacral pain, sciatica in nature with features of ankylosing spondylitis on thoracic and lumbar spine x-rays: Although patient does not know the diagnosis of ankylosing spondylitis but he has positive symptoms of and he was getting Enbrel for that. Positive fluid balance About 2600 mL. IV fluid normal saline is decreased to 100 mL/h. Monitor intake and output. CK got elevated after seizure. CK trending down PT and OT. Pain management and muscle relaxant. 7. Hemoconcentration with severe dehydration: IV fluid as mentioned above. 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 10: Thrombocytopenia, present on admission: Patient is admitted with platelet count 102. It dropped to 71,000. 5 units of platelet transfused prior to surgery. 6 seconds single donor platelet transfusion in progress when the patient was transferred. Bilateral SCDs. Pharmacological prophylaxis contraindicated Subjective: Patient seen and examined. Patient was able to stand up with the help of walker yesterday in the morning but today in the morning was called that he does not have sensation below nipple level. Not able to move his legs. Patient does not have bladder filling sensation but he had Louise catheter before that was removed just in the morning at 6:30 AM. Patient also does not have bowel movement for last 3-4 days, although on stool softeners. - Physical Exam General: Alert, Oriented x3, Cooperative HEENT: Atraumatic, PERRLA, EOMI, Normocephalic Neck: Supple, No JVD, Negative Carotid Bruits Lungs: Clear to auscultation, No rhonchi, No wheeze, No rales, Diminished Cardiovascular: Regular rate, Regular Rhythm, Normal S1, Normal S2, No murmurs Abdomen: Bowel Sounds Present, Soft, Non Tender, Distended - Mild gaseous distention, - - On rectal exam, mechanical sphincter muscle on bear down Extremities: Capillary Refill Less than 3 Seconds, Edema Skin: No rashes, No breakdown Musculoskeletal: No Tenderness to Palpation of Joints or Extremities Neurological: Cranial nerves II-XII grossly intact, - - No sensation to touch below the nipple level. No spontaneous motor movement of lower extremities including knee, ankle or toe level. Plantar reflex negative with no spraying of toes. Left lower extremity and right lower extremity falls, 05/28. No deep tendon reflexes; 05/27 Psych/Mental Status: Normal Affect, Appropriate Vital Signs Temp Pulse Resp BP Pulse Ox 98.2 F 90 18 109/66 95 05/14/18 08:25 05/14/18 08:30 05/14/18 08:25 05/14/18 08:25 05/14/18 08:30 Oxygen Flow Rate (L/min) 1 Oxygen Delivery Method Room Air Weight: 179 lb 10.828 oz Body Mass Index (BMI) 28.2 Intake and Output for Last 24 Hours Intake Total 4895 / 4895 4091 / 4091 1575 / 1575 Output Total 900 / 900 1650 / 1650 700 / 700 Balance 3995 / 3995 2441 / 2441 875 / 875 Laboratory Tests Past 24 Hrs WBC 9.7 7.9 RBC 3.15 L 2.79 L Hgb 10.0 L 8.8 L Hct 30.5 L 26.4 L Home Medications: Medications to take at Discharge Lisinopril/Hctz 1 tab PO DAILY 05/11/18 Omeprazole 20 mg PO BID 05/11/18 Primary Care Physician: Yang Saul MD [Primary Care Provider] - Medical Necessity - Tobacco Use Smoking Status: Current every day smoker Meaningful Use Info Meaningful Use Diagnoses (Choose all that apply): None applicable Code Visit Inpatient E AND M: 09819 Disch Hosp 05/14/18 1801 <Electronically signed by Sudheer Lawton MD> Date Sudheer Lawton MD Cosigner Signature (if applicable): Date CC: Yang Saul MD; Sudheer Lawton MD Signed HEMOGRAM W/ AUTODIFF Collected: 05/14/2018 Status: F Source: [facility] 5:25 PM SYSTEM REPOSITORY TYPE CODE TESTS RESULT OUT OF REFERENCE UNITS RANGE LAB IWBC 3.6-10.7 10*3/uL WBC Normal 7.0 LAB RBC 4.40-5.90 10*6/uL Low RBC 2.71 LAB HGB 13.0-18.0 g/dL Low Hemoglobin 8.7 LAB HCT 40.0-52.0 % Low Hematocrit 25.3 LAB MCV 80.0-98.0 fL MCV Normal 93.4 LAB MCH 26.0-34.0 pg MCH Normal 32.3 LAB MCHC 32.0-36.0 % MCHC Normal 34.6 LAB RDW 11.5-14.5 % RDW Normal 12.7 LAB PLT 140-440 10*3/uL Low Platelet 98 LAB MPV 7.4-10.4 fL MPV Normal 8.7 LAB GRAN% 40.0-80.0 % Granulocytes High 89.7 LAB LYMP% 20.0-40.0 % Low Lymphocytes 5.7 LAB MONO% 2.0-10.0 % Monocytes Normal 4.3 LAB EOS% 1.0-6.0 % Low Eosinophils 0.1 LAB BAS% 0.0-2.0 % Basophils Normal 0.2 LAB ANC 1.8-7.0 10*3/uL Abs Normal Neutrophile Cnt 6.3 LAB ALC 1.0-4.3 10*3/uL Low Abs Lymph Cnt 0.4 LAB AMC 0.0-0.8 10*3/uL Abs Monocyte Normal Cnt 0.3 LAB AEC 0.0-0.5 10*3/uL Abs Eosin Cnt Normal 0.0 LAB ABC 0.0-0.2 10*3/uL Abs Baso Cnt Normal 0.0 Performed By: #### HEMDF, PT/AP, BMP3 #### [facility] [address] [place] [id number] PROTIME AND APTT Collected: 05/14/2018 Status: F Source: [facility] 5:25 PM SYSTEM REPOSITORY TYPE CODE TESTS RESULT OUT OF REFERENCE UNITS RANGE LAB PROTM 9.0-12.0 s Prothrombin Normal Time 10.7 Result Comment: . LAB INR 0.9-1.1 NA Normal INR 1.0 Result Comment: Recommended Anticoagulant Therapy: SEE BELOW ----- INR of 2.0 - 3.0 : - Prophylaxis of Venous Thrombosis (high-risk surgery) - Treatment of Venous Thrombosis - Treatment of Pulmonary Embolism (Includes tissue heart valves, Acute Myocardial Infarction to prevent systemic embolism, Valvular Heart Disease, and Atrial Fibrillation) ----- INR of 2.5 - 3.5 : - Mechanical Prosthetic Valves (high risk) - If oral anticoagulant therapy is used to prevent Myocardial Infarction LAB PTTA 20.0-30.5 s Normal APTT 23.1 Result Comment: NOTE: The therapeutic time for Heparin anticoagulation, based on Xa activity inhibition, is an APTT of 46-80 seconds. Performed By: #### HEMDF, PT/AP, BMP3 #### [facility] [address] [place] [id number] BASIC METABOLIC PANEL Collected: 05/14/2018 Status: F Source: [facility] 5:25 PM SYSTEM REPOSITORY TYPE CODE TESTS RESULT OUT OF RANGE REFERENCE UNITS LAB NA3 135-145 mmol/L Normal Sodium 140 Result Comment: NOTE: New Sodium Reference Range effective 2018 @ 10:00 LAB K3 3.5-5.1 mmol/L Normal Potassium 4.4 LAB CL3 98-107 mmol/L Normal Chloride 105 LAB CO23 22-30 mmol/L Normal Carbon Dioxide 25 LAB ANIN3 NA Anion Gap 10 LAB GLUC3 70-100 mg/dL High Glucose 131 LAB BUN3 7-20 mg/dL Normal Urea Nitrogen 13 LAB CRET3 0.52-1.25 mg/dL Normal Creatinine 0.58 LAB GF3BR >60 mL/min eGFR > 60.0 LAB GF3WR >60 mL/min eGFR OTHER > 60.0 Result Comment: Source- MDRD equation with creatinine calibration to IDMS(NKDEP) eGFR not recommended for drug dose adjustment LAB CA3 8.4-10.4 mg/dL Low Calcium 7.3 Performed By: #### HEMDF, PT/AP, BMP3 #### [facility] [address] [place] [phone] Observed: 05/14/2018 Status: F Source: [facility] TS GEL 5:25 PM SYSTEM REPOSITORY ABO Group: A Rh, Gel: POS Antibody Screen Gel: NEG Performed By: #### JUANL #### [facility] [place] [address] #### STEFANIA, [address] #### [place] [address] Observed: 05/14/2018 Status: F Source: [facility] LEUKODEPLETED RED CELLS 5:25 PM SYSTEM REPOSITORY Leukodepleted Red Cells: [id number] transfused 05/14/18 22:22 DMM2 Unit Blood Type: A Unit Blood Rh: POS Blood Product Code: AS1 Unit Number: [id number] Unit Status: transfused Barcoded Unit Number: =[id number] Barcoded Product Code: =<I7538P64 Barcoded ABO/Rh: =%6200 Unit Expiration: Unit Volume Transfused: 300 Unit Transfusion Start Date/Time: Leukodepleted Red Cells: [id number] transfused 05/14/18 22:22 DMM2 Unit Blood Type: A Unit Blood Rh: POS Blood Product Code: AS1 Unit Number: [id number] Unit Status: transfused Barcoded Unit Number: =[id number] Barcoded Product Code: =<I4237Z28 Barcoded ABO/Rh: =%6200 Unit Expiration: Unit Volume Transfused: 300 Unit Transfusion Start Date/Time: Performed By: #### UNIQUE #### [facility] [address] [place] [address] [place] [address] #### STEFANIA, [address] #### [place] [address] Observed: 05/14/2018 Status: F Source: [facility] PHERESIS LEUKO 5:25 PM SYSTEM REPOSITORY REDUCED Pheresis Leuko Reduced: [id number] transfused 05/14/18 22:22 DMM2 Unit Blood Type: A Unit Blood Rh: POS Blood Product Code: PA4 Unit Number: [id number] Unit Status: transfused Barcoded Unit Number: =[id number] Barcoded Product Code: =<N3226M99 Barcoded ABO/Rh: =%6200 Unit Expiration: Unit Volume Transfused: 300 Unit Transfusion Start Date/Time: Performed By: #### TSGL #### [facility] [address] [place] [address] #### FRANCY AGUIAR5 #### [facility] [address] [place] [address] BRAIN WITHOUT Observed: 05/14/2018 Status: F Source: [facility] CONTRAST 9:11 AM [facility] Imaging Services [address] [place] [address] Brain without Contrast MR#: [id number] Acct: [id number] Name: KAVON HEARN Rep #: [id number] : 1955 M 62 From: Fidel Andrews MD PCP: Yang Saul MD Status: ADM IN Study: Brain without Contrast Date of Exam: 05/14/18 Exam# [id number] Ordering Dr: Sudheer Lawton MD STUDY: MRI BRAIN WITHOUT CONTRAST REASON FOR EXAM: Male, 62 years old. New paralysis this morning from nipple lying down. Recent fall with hip pinning. New seizure. TECHNIQUE: Standardized multiplanar fat and water weighted pulse sequences were obtained. Fast scan protocol was used due to patient's inability to cooperate. COMPARISON: MRI of the brain without contrast 05/13/2018. FINDINGS: No restricted diffusion to suspect acute or subacute ischemic infarct. The T2 and FLAIR hyperintensity foci in the medial aspect of the posterior occipital lobes more than the parietal lobes have not changed. Normal size of the ventricles and extra-axial spaces for the patient's age. Normal white matter tracts of the supratentorial brain. Normal bilateral basal ganglia. Normal thalami. There is no extra-axial fluid accumulation. Normal flow voids within the major intracranial circulation suggesting patency by spin echo criteria. Normal sella turcica, pituitary gland, infundibular stalk, optic chiasm and hypothalamus. Normal tectal plate and pineal gland. Normal midbrain, regino and medulla. Normal cerebellum. Normal basal cisterns. Normal bilateral temporal bones. Normal bilateral internal auditory canals. No demonstrated orbital abnormality, within the constraints of a routine brain study. Normal visualized paranasal sinuses. Normal calvarium and skull base. Normal visualized soft tissue structures. Normal visualized upper cervical spine. MRI/Brain without Contrast IMPRESSION: 1. No suspicious acute or subacute ischemic infarct on DWI sequence. 2. No obvious significant interval changes of the nearly symmetrical T2 FLAIR hyperintensity foci in both medial occipital lobes more than the parietal lobes and the posterior periventricular white matter. 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 Electronically Signed: Fidel Andrews MD at 10:34 EST , Service support , CC: Yang Saul MD; Sudheer Lawton MD Confectionery Maker: Signed SPINE THORACIC W/WO Observed: 05/14/2018 Status: F Source: RAFAEL CONTRAST 9:11 AM [facility] Imaging Services [address] [place] [address] Spine Thoracic W/WO Contrast MR#: [id number] Acct: [id number] Name: KAVON HEARN Rep #: [id number] : 1955 62 From: Fidel Andrews MD PCP: Yang Saul MD Status: ADM IN Study: Spine Thoracic W/WO Contrast Date of Exam: 05/14/18 Exam# [id number] Ordering Dr: Sudheer Lawton MD STUDY: MRI THORACIC SPINE WITH AND WITHOUT CONTRAST REASON FOR EXAM: Male, 62 years old. Paralysis this morning from the nipple lying down. Recent fall with hip pinning. New seizure. Concern for cord compression. TECHNIQUE: 8 ml of Gadavist was administered intravenously for the contrast portion of the examination. COMPARISON: None. FINDINGS: Normal kyphosis of the thoracic spine. There is no substantial scoliosis. T1-2, T2-3, T3-4, T4-5, T5-6, T6-7, T7-8, T8-9, T9-10, T10- 11, T11-12: Acute fracture across the T8 vertebral body with mild loss of the upper vertebral body height. There is also acute fracture of the right T8 pedicle. There is a large dorsal epidural hematoma extending from the T4-T5 disc level down to the mid T10 vertebral body level causing anterior displacement of the thoracic spinal cord and causing severe central canal stenosis. Partial ankylosis of the T9, T10 and T11 vertebral bodies are from known ankylosing spondylitis. No extruded disc fragment. Mild anterior wedge compression fracture of the upper T7 vertebral body without associated bone edema. No other suspicious recent fractures of the thoracic spine. Anterior displacement of the thoracic spinal cord without intrinsic signal abnormality from the T4-T5 disc level down to mid T10 vertebral body level. Normal conus medullaris that terminates at the T12-L1 disc level. The soft tissue structures are unremarkable. There is no enhancing abnormality. MRI/Spine Thoracic W/WO Contrast IMPRESSION: 1. Acute fracture across the T8 vertebral body with mild comminution and mild loss of the upper vertebral body height, acute fracture of the right T8 pedicle and large dorsal epidural hematoma extending from the T4-T5 disc level down to the mid T10 vertebral body level. This is causing severe central canal stenosis and anterior displacement of the thoracic spinal cord. 2. Mild old anterior wedge compression fracture of the upper T7 vertebral body. 3. No thoracic extruded disc fragment. 4. No intrinsic signal abnormality of the anteriorly displaced thoracic spinal cord. COMMENT: I gave a preliminary verbal report over the phone to hospitalist physician Dr. Sudheer Lawton. Electronically Signed: Fidel Andrews MD at 12:18 EST , Service support , CC: Yang Saul MD; Sudheer Lawton MD Confectionery Maker: Signed SPINE CERVICAL W/WO Observed: 05/14/2018 Status: F Source: RAFAEL CONTRAST 9:11 AM [facility] Imaging Services [address] [place] [address] Spine Cervical W/WO Contrast MR#: [id number] Acct: [id number] Name: KAVON HEARN Rep #: [id number] : 1955 M 62 From: Fidel Andrews MD PCP: Yang Saul MD Status: ADM IN Study: Spine Cervical W/WO Contrast Date of Exam: 05/14/18 Exam# [id number] Ordering Dr: Sudheer Lawton MD STUDY: MRI CERVICAL SPINE WITH AND WITHOUT CONTRAST REASON FOR EXAM: Male, 62 years old. New paralysis this morning from nipple line down. Recent fall with hip pinning. New seizure. Concern for cord compression. TECHNIQUE: Standardized fat and water weighted pulse sequences were obtained in the sagittal and axial following I.V. administration of 8 ml of Gadavist contrast material. COMPARISON: None FINDINGS: Normal foramen magnum and brainstem-cervical cord junction. Normal craniovertebral junction. Normal anterior atlantoaxial articulation. Normal odontoid process. Cervical kyphosis at C6-C7 disc level due to old compression fractures of C6 and C7 vertebral bodies. No acute fractures of the cervical spine. C2-3: Normal endplates. Normal disc height, signal and morphology. Normal central canal and intervertebral neural foramina. C3-4: Partial ankylosis in the anterior aspect of the C3 and C4 vertebral bodies. Normal endplates and disc space. Normal central canal and bilateral intervertebral neural foramina. C4-5: Normal endplates. Normal disc height, signal and morphology. Normal central canal and intervertebral neural foramina. C5-6: Normal C5 inferior endplate. Old anterior wedge compression fracture of the C6 vertebral body. Normal disc space height and morphology. Normal central canal and bilateral intervertebral neural foramina. C6-7: Ankylosis of old anterior wedge compression fractures of C6 and C7 vertebral bodies. Posterior marginal spur. No spinal cord compression. Normal central canal and bilateral intervertebral neural foramina. C7-T1: Mild old compression fracture in the central aspect of the C7 inferior endplate. Minimal old anterior wedge compression fracture of the T1 superior endplate. Increased disc space height. No ventral extradural defect. Normal central canal and bilateral intervertebral neural foramina. T1-T2: Normal endplates. Normal disc height and morphology. Normal central canal and bilateral intervertebral neural foramina. T2-T3, T3-T4 and T4-T5: Normal endplates. Normal disc height and morphology. Normal central canal and bilateral intervertebral neural foramina. T5-T6: Normal endplates. Normal disc height and morphology. Severe central canal stenosis due to large dorsal epidural hematoma extending from the T4-T5 disc level down to the mid T10 vertebral body level on the MRI of the thoracic spine. Normal bilateral intervertebral neural foramina. Normal cervical cord. Normal visualized soft tissue structures. MRI/Spine Cervical W/WO Contrast IMPRESSION: 1. Old anterior wedge compression fractures with ankylosis of the C6 and C7 vertebral bodies. 2. No MRI evidence of acute fractures of the cervical spine. 3. No MRI evidence of cervical spinal stenosis or cervical spinal cord compressing lesions. 4. Partial ankylosis in the anterior aspect of C3-C4 vertebral bodies from known ankylosing spondylitis. 5. Large dorsal epidural hematoma tapering superiorly at the T4-T5 disc level but enlarges caudally with anterior displacement of the thoracic spinal cord and causing severe central canal stenosis. Please see MRI of the thoracic spine showing dorsal epidural hematoma extending down to the mid T10 vertebral body level and the acute fracture across the T8 vertebral body with mild comminution and acute fracture of the right T8 pedicle. COMMENT: Hospitalist physician Dr. Sudheer Lawton gave me a direct phone call for a preliminary report of the MRI C-spine and MRI thoracic spine which I gave. Electronically Signed: Fidel Andrews MD at 12:29 EST , Service support , CC: Yang Saul MD; Sudheer Lawton MD Confectionery Maker: Signed SPINE LUMBAR W/WO Observed: 05/14/2018 Status: F Source: [facility]FAEL CONTRAST 9:11 AM [facility] Imaging Services [facility] [address] [place] [address] Spine Lumbar W/WO Contrast MR#: [id number] Acct: [id number] Name: KAVON HEARN Emir Rep #: [id number] : 1955 M 62 From: Fidel Andrews MD PCP: Yang Saul MD Status: ADM IN Study: Spine Lumbar W/WO Contrast Date of Exam: 05/14/18 Exam# [id number] Ordering Dr: Sudheer Lawton MD STUDY: MRI LUMBAR SPINE WITH AND WITHOUT CONTRAST REASON FOR EXAM: Male, 62 years old. New paralysis this morning from nipple line down. Recent fall with hip pinning. New seizure. Concern for cord compression. TECHNIQUE: Standardized fat and water weighted pulse sequences were obtained in the sagittal and axial planes. 8 ml of Gadavist contrast material was administered for the contrast portion of the examination. COMPARISON: None FINDINGS: T10-T11: (Sagittal only). Caudally tapered dorsal epidural hematoma at the mid T10 vertebral body level coming from above. Partial ankylosis in the anterior aspect of the T10 and T11 vertebral bodies. Hypoplastic disc. No ventral extradural defect. Normal central canal and bilateral intervertebral neural foramina at the disc level. T11-T12: (Sagittal only). Normal endplates. Normal disc height and morphology. Normal central canal and bilateral intervertebral neural foramina. T12-L1: (Sagittal only). Normal endplates. Normal disc height and morphology. No ventral extradural defect. Normal central canal and bilateral intervertebral neural foramina. Normal lumbar lordosis. There is no substantial scoliosis. Normal conus medullaris that terminates at the upper L1 vertebral body level. L1-2: Normal endplates. Normal disc height, hydration and morphology. Normal bilateral facet joints. Normal central canal and bilateral lateral recesses. Normal bilateral intervertebral neural foramina. L2-3: Partial ankylosis in the anterior aspect of the vertebral bodies. Normal endplates. Mild disc space height narrowing. No ventral extra dural defect. Normal central canal and bilateral lateral recesses. Normal facet joints. Normal bilateral intervertebral neural foramina. Prominent left renal cyst is visible at this level. L3-4: Partial ankylosis of the vertebral bodies. Normal endplates with mild disc space height narrowing. No ventral extradural defect. Normal central canal and bilateral lateral recesses. Normal facet joints. Normal bilateral intervertebral neural foramina. L4-5: Normal endplates. Normal disc height, hydration and morphology. Normal bilateral facet joints. Normal central canal and bilateral lateral recesses. Normal bilateral intervertebral neural foramina. L5-S1: Normal endplates. Mild disc space height narrowing. No ventral extradural defect. Normal central canal and bilateral lateral recesses. Normal facet joints. Normal bilateral intervertebral neural foramina. Normal visualized sacral ala. Fatty infiltration of the posterior paraspinal muscles. No suspicious enhancing lesions after IV contrast administration. MRI/Spine Lumbar W/WO Contrast IMPRESSION: 1. Partial ankylosis in the anterior aspect of T10 and T11 vertebral bodies, the anterior aspect of L2 and L3 vertebral bodies and the anterior aspect of L3 and L4 vertebral bodies due to known ankylosing spondylitis. 2. No acute fractures or malalignment of the lumbar spine. 3. No lumbar extruded disc fragment, spinal stenosis or nerve root displacement. 4. Caudally tapering dorsal epidural hematoma at the mid T10 vertebral body level is coming from above. Please see MRI of the thoracic spine showing large and long dorsal epidural hematoma extending cephalad to the T4-T5 disc level and acute fracture across the T8 vertebral body with comminution and acute fracture of the right T8 pedicle. COMMENT: Hospitalist physician Dr. Sudheer Lawton called me directly over the phone for a preliminary report of MRI C, T and L spine which I did. Electronically Signed: Fidel Andrews MD at 12:37 EST , Service support , CC: Yang Saul MD; Sudheer Lawton MD Confectionery Maker: Signed CBC W/DIFF, AUTOMATED Collected: 05/14/2018 Status: F Source: [place]FA[place] 7:10 AM [facility] [place] TYPE CODE TESTS RESULT OUT OF RANGE REFERENCE UNITS LAB L100.1000 4.4-11.0 K/mm3 Normal WBC 7.9 LAB L100.1200 4.6-6.2 M/mm3 Low RBC 2.79 LAB L100.1300 13.0-16.5 g/dl Low HGB 8.8 LAB L100.1400 40-54 % Low HCT 26.4 LAB L100.1500 80-94 fL High MCV 94.6 LAB L100.1600 27.0-32.0 pg Normal MCH 31.5 LAB L100.1700 32-36 g/gl Normal MCHC 33.3 LAB L100.1810 11.6-14.6 % Normal RDW CV 12.8 LAB L100.1820 35.1-43.9 fl High RDW SD 44.2 LAB L100.1900 150-450 K/mm3 Low PLT 61 LAB L100.2000 6.2-12.0 fl Normal MPV 11.0 LAB L100.2100 47-70 % Normal NEUT% 65.6 LAB L100.2200 19-41 % Low LY% 16.3 LAB L100.2300 0-10 % High MONO% 16.2 LAB L100.2400 0-5 % Normal EO% 1.5 LAB L100.2500 0-1 % Normal BASO% 0.3 LAB L100.2550 0.0-0.9 % Normal IM GRAN % 0.100 Result Comment: IG% - Immature Granulocytes (promyelocytes, myelocytes and metamyelocytes) > 1% indicates that a LEFT SHIFT is Present. LAB L100.2620 2.0-7.7 X10 3/uL Normal Absolute Neut 5.2 LAB L100.2720 0.83-4.51 X10 3/ul Normal Absolute Lymph 1.28 Performed By: #### L100.0100 #### [facility] [address] [place] [address]. [place], [address] BASIC METABOLIC Collected: 05/14/2018 Status: F Source: ELDON PROFILE (BMP) 7:10 AM [facility] [place] TYPE CODE TESTS RESULT OUT OF RANGE REFERENCE UNITS LAB L501.0100 74-106 mg/dL Normal GLU 82 Result Comment: Please note revised GLUCOSE reference range effective 2017. LAB L501.1000 7-18 mg/dL Normal BUN 11 LAB L501.1100 0.70-1.30 mg/dL Low CREAT,SERUM 0.68 Result Comment: The validity of the calculated GFR AND GFRAA in patients over 70 years has not been determined. Clinical correlation is essential. LAB L501.1110 >60 mL/min Normal EST GFR 127 Result Comment: Non- GFR Calc LAB L501.1115 >60 mL/min Normal EST GFR - AA 153 Result Comment: GFR Calc LAB L501.1255 ml/min Normal Estimated CRCL 95.52 LAB L501.1300 10-20 RATIO Normal BUN/CRE 16.3 LAB L501.2200 8.5-10 mg/dL Low .1 CA 6.9 LAB L501.5300 136-14 mmol/L Normal 5 NA 142 LAB L501.5600 3.5-5. mmol/L Normal 1 K 3.5 LAB L501.5900 98-107 mmol/L Normal CL 106 LAB L501.6100 21.0-3 mmol/L Normal 2.0 CO2 29.0 LAB L501.6200 5-15 Normal GAP 7 Performed By: #### L500.2500, L501.3620 #### [facility] [address] [facility]. [place], [place], [address] CPK TOTAL, CREATINE Collected: 05/14/2018 Status: F Source: RAFAEL KINASE 7:10 AM [facility] [place] TYPE CODE TESTS RESULT OUT OF RANGE REFERENCE UNITS LAB L501.3620 39-308 U/L High CPK TOTAL 1201 Performed By: #### L500.2500, L501.3620 #### [facility] [address] [facility] [place], [address] COMPREHENSIVE METABOLIC Collected: 05/13/2018 Status: F Source: RAFAEL PROFIL 6:26 AM [facility] [place] TYPE CODE TESTS RESULT OUT OF RANGE REFERENCE UNITS LAB L501.0100 74-106 mg/dL Normal GLU 90 Result Comment: Please note revised GLUCOSE reference range effective 2017. LAB L501.1000 7-18 mg/dL Normal BUN 13 LAB L501.1100 0.70-1.30 mg/dL Low CREAT,SERUM 0.64 Result Comment: The validity of the calculated GFR AND GFRAA in patients over 70 years has not been determined. Clinical correlation is essential. LAB L501.1110 >60 mL/min Normal EST GFR 134 Result Comment: Non- GFR Calc LAB L501.1115 >60 mL/min Normal EST GFR - AA 162 Result Comment: GFR Calc LAB L501.1255 ml/min Normal Estimated CRCL 101.49 LAB L501.1300 10-20 RATIO High BUN/CRE 20.2 LAB L501.1500 6.4-8. g/dL Low 2 T PROT 4.7 LAB L501.1800 3.2-5. g/dL Low 0 ALB 2.1 LAB L501.1950 2.2-4. g/dL 2 GLOB Normal 2.6 LAB L501.2000 0.9-2. RATIO Low 4 A/G 0.8 LAB L501.2200 8.5-10 mg/dL Low .1 CA alert 6.4 Result Comment: Critical Result(s) Called at: 07:24:14 05/13/2018 by: Comfort Boston to Jenni Velazquez LAB L501.4100 15-37 U/L High AST 92 LAB L501.4305 45-117 U/L Normal ALK P 65 LAB L501.4405 16-61 U/L Normal ALT 40 LAB L501.4600 0.20-1.00 mg/dL High T BILI 1.30 LAB L501.5300 136-145 mmol/L Normal NA 142 LAB L501.5600 3.5-5.1 mmol/L Normal K 3.7 LAB L501.5900 98-107 mmol/L High CL 108 LAB L501.6100 21.0-32.0 mmol/L Normal CO2 25.0 LAB L501.6200 5-15 Normal GAP 9 Performed By: #### L500.4050, L501.3620 #### [facility] [address] [place], [address] CPK TOTAL, CREATINE Collected: 05/13/2018 Status: F Source: RAFAEL KINASE 6:26 AM [facility] [place] TYPE CODE TESTS RESULT OUT OF RANGE REFERENCE UNITS LAB L501.3620 39-308 U/L High CPK TOTAL 2012 Performed By: #### L500.4050, L501.3620 #### [facility] [address] [place], [place], [address] CBC W/DIFF, AUTOMATED Collected: 05/13/2018 Status: F Source: RAFAEL 6:26 AM [facility] [place] Order Comment: Comments: Add on morning lab TYPE CODE TESTS RESULT OUT OF RANGE REFERENCE UNITS LAB L100.1000 4.4-11.0 K/mm3 Normal WBC 9.7 LAB L100.1200 4.6-6.2 M/mm3 Low RBC 3.15 LAB L100.1300 13.0-16.5 g/dl Low HGB 10.0 LAB L100.1400 40-54 % Low HCT 30.5 LAB L100.1500 80-94 fL High MCV 96.8 LAB L100.1600 27.0-32.0 pg Normal MCH 31.7 LAB L100.1700 32-36 g/gl Normal MCHC 32.8 LAB L100.1810 11.6-14.6 % Normal RDW CV 12.4 LAB L100.1820 35.1-43.9 fl Normal RDW SD 42.1 LAB L100.1900 150-450 K/mm3 Low PLT 55 LAB L100.2000 6.2-12.0 fl Normal MPV 11.0 LAB L100.2100 47-70 % Normal NEUT% 67.2 LAB L100.2200 19-41 % Low LY% 17.3 LAB L100.2300 0-10 % High MONO% 14.5 LAB L100.2400 0-5 % Normal EO% 0.4 LAB L100.2500 0-1 % Normal BASO% 0.2 LAB L100.2550 0.0-0.9 % Normal IM GRAN % 0.400 Result Comment: IG% - Immature Granulocytes (promyelocytes, myelocytes and metamyelocytes) > 1% indicates that a LEFT SHIFT is Present. LAB L100.2620 2.0-7.7 X10 3/uL Normal Absolute Neut 6.5 LAB L100.2720 0.83-4.51 X10 3/ul Normal Absolute Lymph 1.67 Performed By: #### L100.0100 #### [facility] [address] [facility] [place], [place], [address] HIP MIN 2 VIEWS Observed: 05/12/2018 Status: F Source: RAFAEL (PORTABLE) 4:40 PM [facility] [place] [facility] Imaging Services [address] [place] [address] Hip Min 2 Views (Portable) MR#: [id number] Acct: [id number] Name: KAVON HEARN W Rep #: [id number] : 1955 M 62 From: Leandro Sullivan MD PCP: Yang Saul MD Status: ADM IN Study: Hip Min 2 Views (Portable) Date of Exam: 05/12/18 Exam# [id number] Ordering Dr: Rios Cunha MD STUDY: X-RAY - RIGHT HIP REASON FOR EXAM: Male, 62 years old. Postop TECHNIQUE: 4 views of the hip. COMPARISON: Prior intraoperative study of this date FINDINGS: There is demonstrated evidence of open reduction and internal fixation of previously noted intertrochanteric fracture, with major fracture fragments appearing in good alignment. There is a long stem interfemoral sue. There are degenerative changes of both hips. Generalized osteopenia is present. RAD/Hip Min 2 Views (Portable) IMPRESSION: Status post ORIF changes of the right hip with fracture fragments appearing in good alignment. There are degenerative changes of both hips. Electronically Signed: Leandro Sullivan MD at 19:59 EST , Service support , CC: Yang Saul MD; Rios Cunha MD Confectionery Maker: Signed OPERATIVE REPORT Observed: 05/12/2018 Status: F Source: RAFAEL 4:38 PM [facility] [place] [facility] Medical Records Department [address] [place] [address] Operative Report 05/12/18 1635 MR#: [id number] Acct: [id number] Name: KAVON HEARN W Rep #: [id number] : 1955 62 From: Riso Cunha MD PCP: Yang Saul MD Status: ADM IN Y Location: [place] [address] Report of Operation Date of Procedure: 12/20/18 Pre-Operative Diagnosis: Right hip intertrochanteric fracture Post-Operative Diagnosis: Right hip intertrochanteric fracture Surgery/Procedure Performed:: Right hip cephalo-medullary nail Description of Surgical Findings:: Stable reduction hand picker: None Type of Anesthesia:: General Anesthesiologist: Eliel Cabral Special Medications: 2 g Ancef Estimated Blood Loss (mL): 200 mL Fluids Replaced: 700 mL crystalloid Description of Procedure: Components used: 1. Chaudhry [employer] Nephew InterTAN nail 38 cm, 10mm 2. Chaudhry [employer] InterTAN lag screw 100mm 3. Chaudhry AND Nephew 45 millimeter interlocking screw Brief history operative indications: 62-year-old male who sustained an intertrochanteric hip fracture. After extensive discussion including risk and benefits which include but are not limited to blood loss, PEs, DVTs, neurovascular damage, nonunions, malunions and screw cut out patient has elected to proceed with a right cephalo-medullary nail. Procedure: On the date of the procedure the patient's R hip was marked in the preoperative area and patient was taken back to the operating room. Anesthetic was administered and patient was transferred to the table were all bony prominence identified well-padded and the ipsilateral arm was placed across the chest. Patient was then translated down to the perineal post and the operative leg was placed in the boot while the nonoperative leg was lowered and secured. The operative leg was placed in traction and internal rotation and live fluoroscopy was used to verify adequate reduction. The operative leg was then prepped in a sterile fashion with chlorhexidine while the surgeon scrubbed. Upon reentering the room the operative extremity was draped in the standard orthopedic fashion. Skin incision was marked and a timeout was called. Everyone agreed upon the side, the site, the procedure be performed, patient's identity, and antibiotics given. Skin incision was made and the position of the entry guidepin was verified using live fluoroscopy. Once we were satisfied with our position the pin was advanced in the soft tissue protector was placed over the pin. The entry reamer was then advanced into the proximal portion of the femur. A guidewire was placed down the intramedullary canal and fluoroscopy was used to verify that the anterior cortex had not been breached distally as well as satisfactory distal positioning. We then used live fluoroscopy to verify the length of the nail and a Chaudhry [employer] Nephew InterTAN 125 by 10 mm 38 cm hip nail was selected. Canal was sequentially reamed to 11.5 mm. The nail was then attached to the head of merchandise buying and inserted into the intramedullary canal. The appropriate depth was verified and the skin incision for the lag screw was made. The lag screw guidepin was then placed under live fluoroscopy and when a satisfactory position was obtained the length of the screw was measured and the standard technique to drill for the lag screws was performed. The anti-rotation bar was used. At this time a 100 lag screw was selected with its corresponding compression screw. The lag screw was then passed and traction was left off the leg. The compression screw was then passed and the fracture was compressed. The final position of the lag screw was verified under fluoroscopy. Attention was then turned to the distal portion of the nail and a perfect [place] technique was used to locate the distal interlocking screw and a 45mm distal interlocking screw was placed using this technique. Live fluoroscopy was used to verify the position of the interlocking screw and the final position of the hip components. Once we were satisfied with our positioning the wounds were copiously irrigated out with normal saline skin was closed with 2-0 Vicryl and janae for final skin closure. A sterile dressing was placed with Xeroform. Patient was then awakened by anesthesia transferred from the fracture table back to their hospital bed and transferred to the PACU for recovery. Postoperative plan: Patient will be weight-bear as tolerated. Patient has low platelets, DVT prophylaxis will be per primary service as medically indicated. Follow up in the office in 2 weeks. Grafts/Implants Used: Chaudhry AND Nephew 125 degree InterTAN nail 38 cm x 10 mm - Complications None - Admit VTE Documentation VTE Present on Admission: No VTE Mechan Device Prophylaxis: SCD's VTE Pharm Prophylaxis ordered?: Yes 05/12/18 1638 <Electronically signed by Rios Cunha MD> Date Rios Cunha MD CC: Yang Saul MD; José Alvarez MD; Rios Cunha MD Signed CONSULTATION Observed: 05/12/2018 Status: F Source: ELD[place] 3:24 PM [facility] [place] [facility] Medical Records Department [address] [place] [address] Consultation 12/20/18 1000 MR#: [id number] Acct: [id number] Name: KAVON HEARN Rep #: [id number] : 1955 62 From: Yoandy Keys PA-C PCP: Yang Saul MD Status: ADM IN Y Location: ICU ICU01-1 ADDENDUM by Rios Cunha MD on 05/12/18 at 1524 Code Visit Patient was seen and examined this afternoon. I agree with the above assessment from my physician assistant curator. Images have been reviewed as well. At this time the plan is to proceed with a right hip cephalo-medullary nail. Patient does have some excoriated skin which is chronic dry skin. He does understand that in addition to the risks discussed earlier this is likely an increased infection risk. Patient demonstrates an understanding and wishes to proceed with surgery. Currently his pain is a 5 out of 10 better with medications and immobilization. It was a 10 out of 10 at the time of the injury last evening. [facility] Office: 05/12/18 3238 <Electronically signed by Rios Cunha MD> Date Rios Cunha MD cc: Yang Saul MD; José Alvarez MD; Rios Cunha MD * Signed Problem List (1) Fall Status: Acute Reason for Consult Date of Consultation: 05/12/18 Reason for Consultation: Right Hip displaced Intertrochanteric Fracture History of Present Illness: The patient is a 62 year old M who fell on May 11, 2018 when he states his right hip gave out. Patient was taken to [facility] emergency room in which x-rays were obtained. X-rays initially were read without fracture. Another set of x-rays were obtained which did reveal a right hip angulated comminuted intertrochanteric hip fracture. Patient has a chronic history of lumbosacral spondylosis and cervical spondylosis with chronic neck and back pain. Patient has been treated for his low back and neck in the past. He denies previous back surgery. She has been treated by a chiropractor. He states he was initially seen by environmental services coordinator and was put on Enbrel. He has no longer following any provider at this time for back pain or neck pain. Patient does have surgical history pertinent for testicular cancer and exploratory surgery on his abdomen. He denies any significant previous right hip pain or complications. It was not requiring any ambulatory assistance prior to the fall. Patient currently denies any chest pain, shortness of breath, fevers chills, recent infections. Patient denies any numbness and tingling into the right lower extremity. He has increased pain with any movement of the right lower extremity. Patient did come into the emergency room with elevated blood pressure. Patient did have episode of seizure while in the hospital. Patient does have medical history of hypertension. Patient is a smoker. Patient did have CT scan of the head which does not show acute change or intracranial hemorrhage. Neurology consult has been placed by medicine. Medicine is also getting an echo prior to surgery. 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 There is swelling and tenderness to palpation over the right hip. Sensation intact to light touch to saphenous, sural, superficial/deep peroneal, and tibial distribution. Capillary refill is less than 2 seconds. Range of motion of the right hip was deferred due to fracture. Patient does have positive logroll on the right. Patient does complain of pain and tenderness to palpation over the lumbar spine and neck. Diagnostic studies: 1. X-rays of the right hip were reviewed which does reveal comminuted angulated right hip intertrochanteric fracture. There is also osteoarthritic changes of the right hip with joint space narrowing, subchondral sclerosis, and osteophyte formation. No other acute findings of fracture were appreciated. 2. X-rays of the lumbar spine were reviewed which does show loss of lumbar lordosis. There is no appreciable fractures. Patient has endplate spondylosis of the lumbar vertebrae with multilevel degenerative disc disease and disc space narrowing. This is consistent with ankylosing spondylitis. There is also fusion of the SI joints bilaterally. Patient does have atherosclerotic calcification of the abdominal aorta. - Physical Exam General: Alert, Oriented x3, Cooperative Vital Signs Temp Pulse Resp BP Pulse Ox 99.2 F H 98 18 160/97 H 97 05/12/18 08:00 05/12/18 09:00 05/12/18 09:00 05/12/18 09:00 05/12/18 09:43 Oxygen Flow Rate (L/min) 2 Oxygen Delivery Method Nasal Cannula Weight: 76.9 kg Body Mass Index (BMI) 28.2 Intake and Output for Last 24 Hours Intake Total 597 / 597 1061 / 1061 Output Total 850 / 850 300 / 300 Balance -253 / -253 761 / 761 Laboratory Tests Past 24 Hrs WBC 16.6 H RBC 5.77 WBC 22.2 H RBC 5.58 Hgb 17.9 H Hct 53.3 WBC RBC Hgb Hct MCV MCH MCHC RDW RDW Differential WBC 12.3 H RBC 4.39 L Hgb 13.8 Hct 40.9 MCV 93.2 MCH 31.4 MCHC 33.7 RDW 12.6 WBC RBC Hgb Hct MCV MCH POC Glucose POC Glucose 161 H Assessment/Plan All Active Problems Fall (Acute) Rhabdomyolysis (Acute) Assessment: 1. Right hip comminuted intertrochanteric fracture secondary to mechanical fall 2. Right hip osteoarthritis 3. Chronic low back pain and cervical neck pain 4. Hypertension 5. Thrombocytopenia 6. New onset seizure Plan: I did discuss case with Dr. Rios Cunha. At this time it is recommended for patient to undergo a right hip nail secondary to his intertrochanteric fracture. Case was also discussed with the hospitalist in which they are obtain an echo prior to surgery. Patient is also getting platelets prior to surgery. I did discuss review with the patient all treatment options including surgical versus nonsurgical. Patient wishes to proceed with right hip nail. Potential risks, benefits, and complications of this procedure were discussed in detail including but not limited to , infection, nerve and blood vessel damage, persistent pain, numbness, tingling, paresthesias, blood clot, pulmonary embolism, and requirement for further surgery. The patient expressed full understanding has no further questions for the doctor. Patient does agree to proceed with the above-stated procedure and has signed the surgery consent form. Patient will remain n.p.o. for anticipated surgery this afternoon once clearance has been obtained by medicine. 05/12/18 1024 <Electronically signed by Yoandy Keys PA-C> Date Yoandy Keys PA-C Cosigner Signature (if applicable): Date CC: Yang Saul MD; José Alvarez MD; Rios Cunha MD Signed BRAIN WITHOUT Observed: 05/12/2018 Status: F Source: [place] CONTRAST 2:43 PM [facility] [place] [facility] Imaging Services [address] [place] [address] Brain without Contrast MR#: [id number] Acct: [id number] Name: KAVON HEARN Rep #: [id number] : 1955 M 62 From: Fidel Andrews MD PCP: Yang Saul MD Status: ADM IN Study: Brain without Contrast Date of Exam: 05/13/18 Exam# [id number] Ordering Dr: Renetta Falcon MD STUDY: MRI BRAIN WITHOUT CONTRAST REASON FOR EXAM: Male, 62 years old. New onset of seizure. Unwitnessed fall. Confusion. TECHNIQUE: Standardized multiplanar fat and water weighted pulse sequences were obtained. Patient is unable to cooperate. Fast scan protocol was used. COMPARISON: CT head without contrast 05/11/2018. FINDINGS: No restricted diffusion to suspect acute or subacute ischemic infarct. T2 FLAIR hyperintensity foci in both medial parietal and occipital lobes. There are nearly symmetrical. Posterior periventricular white matter T2 FLAIR hyperintensity foci. No mass effects. No midline shift. Normal bilateral basal ganglia. Normal thalami. There is no extra-axial fluid accumulation. Normal flow voids within the major intracranial circulation suggesting patency by spin echo criteria. Normal sella turcica, pituitary gland, infundibular stalk, optic chiasm and hypothalamus. Normal tectal plate and pineal gland. Normal midbrain, regino and medulla. Normal cerebellum. Normal basal cisterns. Normal bilateral temporal bones. Normal bilateral internal auditory canals. No demonstrated orbital abnormality, within the constraints of a routine brain study. Normal visualized paranasal sinuses. Normal calvarium and skull base. Normal visualized soft tissue structures. Normal visualized upper cervical spine. MRI/Brain without Contrast IMPRESSION: 1. Nearly symmetrical T2 FLAIR hyperintensity foci in both medial occipital lobes more than the parietal lobes and the posterior periventricular subcortical white matter. 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 2. No MRI evidence of acute or subacute ischemic infarct. Electronically Signed: Fidel Andrews MD at 13:30 EST , Service support , CC: Jaqueline Falcon MD; Yang Saul MD Confectionery Maker: Signed ECHOCARDIOGRAM COMPLETE Observed: 05/12/2018 Status: F Source: [place] 1:13 PM [facility] Cardiovascular Services [address] [place] [id number] Echo Complete 05/12/18 1019 MR#: [id number] Acct: [id number] Name: KAVON HEARN Rep #: [id number] : 1955 62 From: Thierry Hartman MD Attending Dr: Sudheer Lawton MD Status: ADM IN Ordering Dr: Sudheer Lawton MD Date: 05/12/18 Location: ICU Sex: M C Admitted: 05/11/18 Reason For Study: HTN Procedure This was a 2D Doppler, Color Flow transthoracic echocardiogram. Exam performed portable in ICU/CCU. Left Ventricle Normal LV size. Mild concentric left ventricular hypertrophy. Left ventricular systolic function is normal. The estimated ejection fraction is 55 %. Transmitral and pulmonary venous doppler flow suggestive of impaired relaxation of left ventricle. Transmitral diastolic flow velocities suggest mild (stage 1) diastolic dysfunction (reversed pattern). No regional wall motion abnormalities noted. Right Ventricle Normal RV size. Normal systolic function. Atria Normal left atrium. Normal right atrium. Mitral Valve Normal mitral valve. Tricuspid Valve Normal tricuspid valve. Aortic Valve The aortic valve is not well visualized. Pulmonic Valve The pulmonic valve is not well visualized. Great Vessels Normal aortic root. The pulmonary artery is normal size. Normal inferior vena cava. Pericardium/Pleural No pericardial effusion. MMode/2D Measurements AND Calculations LVIDd: 3.9 cm IVSd: 1.2 cm Ao root diam: 3.4 cm LVIDs: 2.4 cm LVPWd: 1.3 cm RVDd: 4.3 cm FS: 38.3 % LAV(MOD-bp): 43.6 ml LVAd ap4: 23.1 cm2 SV(MOD-sp4): 34.7 ml LAV(MOD-bp) Indexed: 24.3 ml/m2 EDV(MOD-sp4): 60.8 ml LAV(MOD-sp2): 45.2 ml EDV(sp4-el): 62.9 ml LAV(MOD-sp4): 38.8 ml LVAs ap4: 13.7 cm2 ESV(MOD-sp4): 26.1 ml ESV(sp4-el): 27.4 ml EF(MOD-sp4): 57.0 % EF(sp4-el): 56.5 % SV(sp4-el): 35.5 ml LA A4 area: 15.7 cm2 LA dimension(2D): 3.2 cm RA A4 area: 14.8 cm2 Time Measurements MV dec time: 0.25 sec Doppler Measurements AND Calculations MV E max kevin: 48.6 cm/sec Lat Peak E' Kevin: 5.5 cm/sec Med Peak E' Kevin: 5.5 cm/sec MV A max kevin: 57.0 cm/sec E/E' lat: 8.9 E/E' med: 8.9 MV E/A: 0.85 Ao V2 max: 118.9 cm/sec LV V1 max: 85.0 cm/sec TR max kevin: 283.6 cm/sec Ao max P.7 mmHg LV V1 max P.9 mmHg TR max P.3 mmHg Interpretation Summary Normal LV size. Left ventricular systolic function is normal. The estimated ejection fraction is 55 %. Mild concentric left ventricular hypertrophy. Transmitral and pulmonary venous doppler flow suggestive of impaired relaxation of left ventricle Transmitral diastolic flow velocities suggest mild (stage 1) diastolic dysfunction (reversed pattern). Ordering Physician: Sudheer Lawton Referring Physician: YANG SAUL Performed By: Albina Reyes, IGOR, RVT 05/12/18 1312 Date Thierry Hartman MD CC: Yang Saul MD; Sudheer Lawton MD Date Dictated: 05/12/18 1019 Date Transcribed: 05/12/18 1312 Confectionery Maker: Signed ABO RH BLOOD TYPE, Collected: 05/12/2018 Status: F Source: [facility] PATIENT 8:35 AM [facility] Order Comment: CMV NEG? N Give When? WHEN READY Irradiated? N TYPE CODE TESTS RESULT OUT OF RANGE REFERENCE UNITS LAB B10.0800 A Normal BLOOD POSITIVE TYPE GEL Performed By: #### B10.0010 #### [facility] [address], [address] PPHR Collected: 05/12/2018 Status: F Source: [place] 8:35 AM [facility] TYPE CODE TESTS RESULT OUT OF REFERENCE UNITS RANGE LAB U100.0700 [id number] TRANSFUSED PRODUCT: Platelets Apheresis PPHR LR SD COUNT: 1 Performed By: #### U100.0700 #### [facility] - refer to report for specific site PPHR Collected: 05/12/2018 Status: F Source: [place] 8:35 AM [facility] TYPE CODE TESTS RESULT OUT OF REFERENCE UNITS RANGE LAB U100.0700 [id number] TRANSFUSED PRODUCT: Platelets Apheresis PPHR LR SD COUNT: 1 Performed By: #### U100.0700 #### [facility] - refer to report for specific site HIP MIN 2 VIEWS Observed: 05/12/2018 Status: F Source: [place] (PORTABLE) 6:47 AM [facility] Imaging Services [address] [place] [address] Hip Min 2 Views (Portable) MR#: [id number] Acct: [id number] Name: KAVON HEARN Rep #: [id number] : 1955 M 62 From: Leandro Sullivan MD PCP: Yang Saul MD Status: ADM IN Study: Hip Min 2 Views (Portable) Date of Exam: 05/12/18 Exam# [id number] Ordering Dr: Rios Cunha MD Study: Intraoperative views of right hip nailing Prior study: Preoperative images of 05/11/2018 PROCEDURE: Multiple intraoperative views of the right hip were obtained. FINDINGS: Status post ORIF changes of a comminuted intertrochanteric fracture of the right hip are noted. There is a longstem femoral sue extending to the distal femoral metaphysis. IMPRESSION: Status post open reduction and internal fixation of previously noted comminuted intertrochanteric fracture. Major fracture fragments appear in good alignment. Electronically Signed: Leandro Sullivan MD at 17:09 EST , Service support , RAD/Hip Min 2 Views (Portable) CC: Yang Saul MD; Rios Cunha MD Confectionery Maker: Signed CHEST 1 VIEW Observed: 05/12/2018 Status: F Source: [place] (PORTABLE) 5:50 AM [facility] Imaging Services [address] [place] [address] Chest 1 View (Portable) MR#: [id number] Acct: [id number] Name: KAVON HEARN Rep #: [id number] : 1955 M 62 From: Venkata Franklin MD PCP: Yang Saul MD Status: ADM IN Study: Chest 1 View (Portable) Date of Exam: 05/12/18 Exam# [id number] Ordering Dr: Rios Cunha MD STUDY: X-RAY CHEST REASON FOR EXAM: Male, 62 years old. Confusion. Preoperative evaluation. TECHNIQUE: Single AP portable view of the chest. COMPARISON: None. FINDINGS: EKG electrodes are seen. Increased linear markings in the right midlung suggestive of scarring. Vascular congestion. There is no demonstrated pleural abnormality. There is borderline cardiomegaly. Normal mediastinum and bernice. Normal visualized pulmonary arteries. There is atherosclerotic calcification of the aortic arch with tortuosity. There are diffuse degenerative changes of the visualized thoracic spine. Findings suggestive of ankylosing spondylitis. Normal visualized ribs, clavicles, and shoulders. There is no demonstrated abnormality of the visualized soft tissue structures of the upper abdomen. RAD/Chest 1 View (Portable) IMPRESSION: Fine suggestive of linear scarring in the right midlung without evidence of vascular congestion. Electronically Signed: Venkata Franklin MD at 15:57 EST Tel [phone], Service support , CC: Yang Saul MD; Rios Cunha MD Confectionery Maker: Signed CBC W/DIFF, AUTOMATED Collected: 05/12/2018 Status: F Source: [place] 4:45 AM [facility] TYPE CODE TESTS RESULT OUT OF RANGE REFERENCE UNITS LAB L100.1000 4.4-11.0 K/mm3 High WBC 12.3 LAB L100.1200 4.6-6.2 M/mm3 Low RBC 4.39 LAB L100.1300 13.0-16.5 g/dl Normal HGB 13.8 LAB L100.1400 40-54 % Normal HCT 40.9 LAB L100.1500 80-94 fL Normal MCV 93.2 LAB L100.1600 27.0-32.0 pg Normal MCH 31.4 LAB L100.1700 32-36 g/gl Normal MCHC 33.7 LAB L100.1810 11.6-14.6 % Normal RDW CV 12.6 LAB L100.1820 35.1-43.9 fl Normal RDW SD 41.5 LAB L100.1900 150-450 K/mm3 Low PLT 71 LAB L100.2000 6.2-12.0 fl Normal MPV 10.6 LAB L100.2100 47-70 % High NEUT% 74.7 LAB L100.2200 19-41 % Low LY% 13.2 LAB L100.2300 0-10 % High MONO% 11.4 LAB L100.2400 0-5 % Normal EO% 0.1 LAB L100.2500 0-1 % Normal BASO% 0.2 LAB L100.2550 0.0-0.9 % Normal IM GRAN % 0.400 Result Comment: IG% - Immature Granulocytes (promyelocytes, myelocytes and metamyelocytes) > 1% indicates that a LEFT SHIFT is Present. LAB L100.2620 2.0-7.7 X10 3/uL High Absolute Neut 9.2 LAB L100.2720 0.83-4.51 X10 3/ul Normal Absolute Lymph 1.62 Performed By: #### L100.0100 #### [facility] [address] [place], [address] BASIC METABOLIC Collected: 05/12/2018 Status: F Source: [place] PROFILE ([facility]) 4:45 AM [facility] TYPE CODE TESTS RESULT OUT OF RANGE REFERENCE UNITS LAB L501.0100 74-106 mg/dL High GLU 113 Result Comment: Fasting Glucose result from 100 to 125 mg/dL suggests IMPAIRED HOMEOSTASIS per A.D.A. criteria. Please note revised GLUCOSE reference range effective 2017. LAB L501.1000 7-18 mg/dL Normal BUN 10 LAB L501.1100 0.70-1.30 mg/dL Low CREAT,SERUM 0.67 Result Comment: The validity of the calculated GFR AND GFRAA in patients over 70 years has not been determined. Clinical correlation is essential. LAB L501.1110 >60 mL/min Normal EST GFR 128 Result Comment: Non- GFR Calc LAB L501.1115 >60 mL/min Normal EST GFR - AA 155 Result Comment: GFR Calc LAB L501.1255 ml/min Normal Estimated CRCL 100.72 LAB L501.1300 10-20 RATIO BUN/CRE Normal 15.0 LAB L501.2200 8.5-10 mg/dL Low .1 CA alert 6.5 Result Comment: Critical Result(s) Called at: 05:32:55 05/12/2018 by: Luiz Oneal Marrow RN (ICU). LAB L501.5300 136-145 mmol/L Normal NA 143 LAB L501.5600 3.5-5.1 mmol/L Low K 3.4 LAB L501.5900 98-107 mmol/L Normal CL 106 LAB L501.6100 21.0-32.0 mmol/L Normal CO2 30.0 LAB L501.6200 5-15 Normal 7 GAP Performed By: #### L500.2500, L501.3620 #### [facility] [address] [place], [address] CPK TOTAL, CREATINE Collected: 05/12/2018 Status: F Source: [facility] KINASE 4:45 AM [facility] TYPE CODE TESTS RESULT OUT OF RANGE REFERENCE UNITS LAB L501.3620 39-308 U/L High CPK TOTAL 2957 Performed By: #### L500.2500, L501.3620 #### [facility] [address] [place], [address] LACTIC ACID Collected: 05/12/2018 Status: F Source: [place] 3:06 AM [facility] TYPE CODE TESTS RESULT OUT OF RANGE REFERENCE UNITS LAB L503.6005 0.4-2.0 mmol/L Normal LACTIC ACID 1.5 Performed By: #### L503.6005 #### [facility] [address] [place], [address] Observed: 05/12/2018 Status: F Source: [facility] CULTURE, BLOOD (WB) 1:30 AM [facility] Has pt arrived? Y BC No growth in 5 days. Performed By: #### M200.1000 #### [facility] [address] [place], [address] Observed: 05/12/2018 Status: F Source: [place] CULTURE, BLOOD (WB) 1:15 AM [facility] Has pt arrived? Y BC No growth in 5 days. Performed By: #### M200.1000 #### [facility] [address] [place], [address] HIP 1 VIEW WITH Observed: 05/11/2018 Status: F Source: [place] PELVIS 11:33 PM [facility] Imaging Services [address] [place] [address] Hip 1 view with Pelvis MR#: [id number] Acct: [id number] Name: KAVON HEARN Rep #: [id number] : 1955 M 62 From: Nico Eugene MD PCP: Yang Saul MD Status: ADM IN Study: Hip 1 view with Pelvis Date of Exam: 05/11/18 Exam# [id number] Ordering Dr: Malissa Ho MD STUDY: X-RAY - PELVIS AND RIGHT HIP REASON FOR EXAM: Male, 62 years old. Right hip this finger. TECHNIQUE: 2 views of the pelvis and hip. Current exam was done at 2339 hours. COMPARISON: X-ray abdomen and pelvis 05/11/2018, done at 1427 hours. FINDINGS: There is a non-specific bowel gas pattern. Normal visualized soft tissue structures. There is a Louise catheter overlying the pelvis. There is ankylosis of the sacroiliac joints bilaterally. Normal bilateral superior and inferior pubic rami. There is ankylosis of the pubic symphysis. Normal bilateral ischial tuberosities. There is an acute traumatic right intertrochanteric fracture which is comminuted, with angulation convex laterally. Normal visualized femoral head. There is osteoarthritic spur formation of the acetabular rim. There is moderate articular joint space narrowing of the hip. RAD/Hip 1 view with Pelvis IMPRESSION: Angulated, comminuted, right intertrochanteric fracture. Moderate degenerative arthrosis of the right hip. 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 Electronically Signed: Nico Eugene MD at 0:54 EST , Service support , CC: Yang Saul MD; Malissa Ho MD Confectionery Maker: Signed BLOOD GASES BY CPS Collected: 05/11/2018 Status: F Source: [place] 11:28 PM [facility] TYPE CODE TESTS RESULT OUT OF RANGE REFERENCE UNITS LAB L9000.9990 Normal BLD GAS TYPE ART LAB L9001.1000 Normal SITE L Radial LAB L9001.1010 Normal MARIA G TEST POS LAB L9001.1050 O2 Normal Delivery Dev NRB Mask LAB L9001.1055 /min Normal LPM 15.0 LAB L9001.1104 Normal Results To HOSP MD LAB L9001.1105 Normal Time Given 2325 LAB L9001.1110 7.35-7.45 Low pH - I-STAT 7.34 LAB L9001.1210 35-45 mmHg High pCO2 - ISTAT 49.9 LAB L9001.1310 75-100 mmHG High PO2 I-STAT 205 LAB L9001.2300 22-26 mmol/L High HCO3 ISTAT 27.1 LAB L9001.2400 -2 to +2 mmol/L BE Normal ISTAT 1 LAB L9001.2415 mmol/L Normal TOTAL CO2 29 ISTAT LAB L9001.2425 95-99 % High SO2 ISTAT 100 Performed By: #### L9000.0800 #### [facility] Point of Care [address] [place] [address] [id number] LACTIC ACID Collected: 05/11/2018 Status: F Source: [place] 10:40 PM [facility] Order Comment: Yes/No query for Sepsis Lactate Rule Y TYPE CODE TESTS RESULT OUT OF REFERENCE UNITS RANGE LAB L503.6005 0.4-2.0 mmol/L High alert LACTIC ACID 8.9 Result Comment: Critical Result(s) Called at: 23:15:36 05/11/2018 by: DALILA MONTANEZ RN IN ICU Performed By: #### L503.6005 #### [facility] [address] [place], [place], [id number] BLOOD GASES BY CPS Collected: 05/11/2018 Status: F Source: [place] 10:27 PM [facility] TYPE CODE TESTS RESULT OUT OF RANGE REFERENCE UNITS LAB L9000.9990 Normal BLD GAS TYPE ART LAB L9001.1000 Normal SITE L Radial LAB L9001.1010 Normal MARIA G TEST POS LAB L9001.1050 O2 Normal Delivery Dev NRB Mask LAB L9001.1055 /min Normal LPM 15.0 LAB L9001.1104 Normal Results To HOSP MD LAB L9001.1105 Normal Time Given 2220 LAB L9001.1110 7.35-7.45 Low pH alert - I-STAT 7.17 LAB L9001.1210 35-45 mmHg High pCO2 - ISTAT 45.1 LAB L9001.1310 75-100 mmHG High PO2 I-STAT 197 LAB L9001.2300 22-26 mmol/L Low HCO3 ISTAT 16.4 LAB L9001.2400 -2 to +2 mmol/L Low BE ISTAT -12 LAB L9001.2415 mmol/L Normal TOTAL CO2 18 ISTAT LAB L9001.2425 95-99 % Normal SO2 ISTAT 99 Performed By: #### L9000.0800 #### [facility] Point of Care [address] [place], [place] [address] CBC W/DIFF, AUTOMATED Collected: 05/11/2018 Status: F Source: [place] 10:20 PM [facility] TYPE CODE TESTS RESULT OUT OF RANGE REFERENCE UNITS LAB L100.4500 Normal SMEAR COMMENT SCANNED Result Comment: AUTO DIFF OK LAB L100.1000 4.4-11.0 K/mm3 High WBC 22.2 LAB L100.1200 4.6-6.2 M/mm3 Normal RBC 5.58 LAB L100.1300 13.0-16.5 g/dl High HGB 17.9 LAB L100.1400 40-54 % Normal HCT 53.3 LAB L100.1500 80-94 fL High MCV 95.5 LAB L100.1600 27.0-32.0 pg High MCH 32.1 LAB L100.1700 32-36 g/gl Normal MCHC 33.6 LAB L100.1810 11.6-14.6 % Normal RDW 12.7 CV LAB L100.1820 35.1-43.9 fl High RDW 44.3 SD LAB L100.1900 150-450 K/mm3 Low PLT 108 LAB L100.2000 6.2-12.0 fl Normal MPV 10.8 LAB L100.2100 47-70 % High NEUT% 75.7 LAB L100.2200 19-41 % Low LY% 11.7 LAB L100.2300 0-10 % High MONO% 11.7 LAB L100.2400 0-5 % Normal EO% 0.1 LAB L100.2500 0-1 % Normal BASO% 0.1 LAB L100.2550 0.0-0.9 % Normal IM 0.700 GRAN % Result Comment: IG% - Immature Granulocytes (promyelocytes, myelocytes and metamyelocytes) > 1% indicates that a LEFT SHIFT is Present. LAB L100.2620 2.0-7.7 X10 3/uL High Absolute Neut 16.8 LAB L100.2720 0.83-4.51 X10 3/ul Normal Absolute Lymph 2.60 Performed By: #### L100.0100, L500.4050, L501.4010, L501.5200 #### [facility] [address] [place], [place], [address] COMPREHENSIVE METABOLIC Collected: 05/11/2018 Status: F Source: [facility] 10:20 PM [facility] Order Comment: 'TROP' Serial specimen #1, #2 or #3: 1 TYPE CODE TESTS RESULT OUT OF RANGE REFERENCE UNITS LAB L501.0100 74-106 mg/dL High GLU 153 Result Comment: Fasting Glucose result greater than or equal to 126 mg/dL suggests DIABETES MELLITUS per A.D.A. criteria. Please note revised GLUCOSE reference range effective 2017. LAB L501.1000 7-18 mg/dL Normal BUN 9 LAB L501.1100 0.70-1.30 mg/dL Normal CREAT,SERUM 1.15 Result Comment: The validity of the calculated GFR AND GFRAA in patients over 70 years has not been determined. Clinical correlation is essential. LAB L501.1110 >60 mL/min Normal EST GFR 69 Result Comment: Non- GFR Calc LAB L501.1115 >60 mL/min Normal EST GFR - AA 83 Result Comment: GFR Calc LAB L501.1255 ml/min Normal Estimated CRCL 58.68 LAB L501.1300 10-20 RATIO Low BUN/CRE 7.8 LAB L501.1500 6.4-8. g/dL Normal 2 T PROT 7.7 LAB L501.1800 3.2-5. g/dL Normal 0 ALB 3.4 LAB L501.1950 2.2-4. g/dL High 2 GLOB 4.3 LAB L501.2000 0.9-2. RATIO Low 4 A/G 0.8 LAB L501.2200 8.5-10 mg/dL Low .1 CA 7.2 LAB L501.4100 15-37 U/L High AST 109 LAB L501.4305 45-117 U/L High ALK P 125 LAB L501.4405 16-61 U/L High ALT 71 LAB L501.4600 0.20-1 mg/dL High .00 T BILI 1.80 LAB L501.5300 136-14 mmol/L Normal 5 NA 141 LAB L501.5600 3.5-5. mmol/L Low 1 K 3.4 LAB L501.5900 98-107 mmol/L Normal CL 103 LAB L501.6100 21.0-3 mmol/L Low 2.0 CO2 16.0 LAB L501.6200 5-15 High GAP 22 Performed By: #### L100.0100, L500.4050, L501.4010, L501.5200 #### [facility] [address] [place], [place], [address] TROPONIN-I Collected: 05/11/2018 Status: F Source: [place] 10:20 PM [facility] Order Comment: 'TROP' Serial specimen #1, #2 or #3: 1 TYPE CODE TESTS RESULT OUT OF RANGE REFERENCE UNITS LAB L501.4010 <0.045 ng/mL High 0.059 TROPONIN-I Result Comment: TROPONIN-I EXPECTED VALUES <0.045 Negative 0.045 - 0.590 Consistent with Cardiac Damage > OR = 0.600 Critical Value Not every elevated troponin is indicative of RI. These values should be used with clinical judgement in examining the patient's clinical picture for diagnosis. To establish a diagnosis of RI versus myocardial injury, there must be a demonstrated rise and/or fall in the troponin values, in addition to ischemic symptoms, EKG changes, new regional wall motion abnormality, and/or angiographical evidence. PLEASE NOTE: REFERENCE RANGES EDITED 17 Performed By: #### L100.0100, L500.4050, L501.4010, L501.5200 #### [facility] [address] [place], [address] MAGNESIUM Collected: 05/11/2018 Status: F Source: [place] 10:20 PM [facility] Order Comment: 'TROP' Serial specimen #1, #2 or #3: 1 TYPE CODE TESTS RESULT OUT OF RANGE REFERENCE UNITS LAB L501.5200 1.6-2.6 mg/dL Normal MG 1.6 Performed By: #### L100.0100, L500.4050, L501.4010, L501.5200 #### [facility] [address] [place], [address] BEDSIDE GLUCOSE Collected: 05/11/2018 Status: F Source: [place] 10:12 PM [facility] TYPE CODE TESTS RESULT OUT OF REFERENCE UNITS RANGE LAB L501.080 70-110 mg/dL High BEDSIDE GLU 161 Result Comment: MANAGEMENT OF PATIENT CARE PER NURSING PROTOCOL Performed By: #### L501.080 #### [facility] Point of Care [address] [facility] [place] [address] BRAIN/HEAD WITHOUT Observed: 05/11/2018 Status: F Source: [place] CONTRAST 10:08 PM [facility] Imaging Services [address] [place] [address] Brain/Head without Contrast MR#: [id number] Acct: [id number] Name: KAVON HEARN Rep #: [id number] : 1955 M 62 From: Leandro Sullivan MD PCP: Yang Saul MD Status: ADM IN Study: Brain/Head without Contrast Date of Exam: 05/11/18 Exam# [id number] Ordering Dr: Malissa Ho MD STUDY: CT BRAIN WITHOUT CONTRAST REASON FOR EXAM: Male, 62 years old. Mental status changes, injury one day ago RADIATION DOSAGE (If Supplied By Facility): CTDIvol = ( 44.99 ) mGy, DLP = ( 933.90 ) mGycm TECHNIQUE: Transaxial CT imaging of the brain was performed without administration of intravenous contrast material. Individualized dose optimization techniques were used for this CT. COMPARISON: None. FINDINGS: Normal soft tissue structures. Normal calvarium. The lateral ventricles are normal in size and are symmetric. The third and fourth ventricles are midline. There is mild bilateral frontal lobe atrophy. There are areas of decreased attenuation within the white matter tracts of the supratentorial brain, consistent with microvascular disease changes. Normal basal ganglia and thalami. Normal brainstem. Normal cerebellum. There is no intracranial hemorrhage. There are no findings of an acute ischemic infarction. Normal visualized paranasal sinuses. CT/Brain/Head without Contrast IMPRESSION: Chronic involutional changes of the brain. Bilateral frontal lobe atrophy. This may be associated with ethanol abuse. There is no evidence of intracranial hemorrhage or calvarial fracture. Electronically Signed: Leandro Sullivan MD at 23:35 EST , Service support , CC: Yang Saul MD; Malissa Ho MD Confectionery Maker: Signed EMERGENCY DEPARTMENT Observed: 05/11/2018 Status: F Source: [place] SUMMARY 3:42 PM [facility] Medical Records Department [address] [place] [address] Emergency Department Summary 05/11/18 1040 MR#: [id number] Acct: [id number] Name: KAVON HEARN Rep #: [id number] : 1955 62 From: Jagdish Bentley MD PCP: Yang Saul MD Status: ADM IN - ER Visit Summary Date of Service: 05/11/18 Chief Complaint: Fall History of Present Illness: The patient is a 62 M who fell last night about 12 hours ago. He thinks he fell because his right hip gave out. He complains of right hip pain and also mid back pain. He denies hitting his head or neck. Denies head or neck pain. Denies loss of consciousness. Denies any weakness or numbness. Denies any chest pain or shortness of breath. Denies abdominal pain or GI symptoms. Denies urinary symptoms. Physical Examination: Afebrile and vital signs unremarkable except for blood pressure 195/117. The patient is alert and oriented. He appears uncomfortable when trying to move. Head and neck are atraumatic. Heart regular. Lungs clear. Abdomen soft. Back is diffusely tender in the mid thoracic region. Right hip is tender to palpation. Right lower extremity is slightly shortened. Pain with logroll. Neurovascularly intact distally. Other extremities are atraumatic and unremarkable. Test Results: X-rays of the back and right hip are pending. I also checked a CBC, BMP, and CK. Emergency Department Course and Treatment: Patient was treated with fentanyl while awaiting results. I have suspicion for right hip fracture or dislocation. I have low suspicion for back fracture or pathology there. I have low suspicion for rhabdo but will check his labs. X-rays showed degenerative and chronic changes only. Nothing acute. No fractures. Patient is doing well on reevaluation. His blood work showed a white count of 16.6, hemoglobin 18.4, platelets 102. BMP unremarkable. CPK 1371. He was treated with IV fluids. He is taking fluids by mouth. Urinalysis pending. Patient was discussed with the hospitalist for admission Treatment Plan: As above Disposition: Admission Impression: 1. Fall 2. Right hip pain 3. rhabdomyolysis This note was generated with [employer] dictation software. It may contain incorrect words, spelling, and punctuation that were not noted in review of the chart prior to signing ED Disposition - Plan for ED Patient: Chief Complaint: Fall Referrals: Yang Saul MD [Primary Care Provider] - What to do if you have Problems For any increased pain, shortness of breath, bleeding, nausea or vomiting, chest pain, or any unexpected problems, contact your Primary Care Provider. Call [employer] [facility] ([phone]) or report to the closest Emergency Room. Call 911 if necessary. 05/11/18 3395 <Electronically signed by Jagdish Bentley MD> Date Jagdish Bentley MD Cosigner Signature (If Indicated): Date CC: Yang Saul MD HISTORY AND PHYSICAL Observed: 05/11/2018 Status: F Source: [place] EXAM 1:53 PM [facility] Medical Records Department [address] [place] [address] History and Physical 05/11/18 1330 MR#: [id number] Acct: [id number] Name: KAVON HEARN Rep #: [id number] : 1955 62 From: Sudheer Lawton MD PCP: Yang Saul MD Status: ADM IN Y Location: [place] [address] Problem List (1) Ankylosing spondylitis of lumbosacral region Status: Chronic (2) Fall Status: Acute (3) Rhabdomyolysis Status: Acute (4) Psoriasis Status: Chronic (5) Chronic neck and back pain Status: Chronic (6) 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 Fell down because his right hip twisted as he was walking on the level ground. He could not stand up or move around and was laying down for 12 hours. Patient denies loss of consciousness or hitting the head. Before fall, he was not using cane or walker but he used cane in the past for some time. Patient is not able to roll over or sit up because of severe pain. He further states he has chronic back pain and neck pain for more than 20 years with history of 5 times back injuries. He denies back surgery. His neck is in chronic flexor deformity. He is to see chiropractor in [facility] and probably some environmental services coordinator there and was put on Enbrel. He said it did not help one probably currently not following any doctor. In ED, his blood pressure was found high 195/117, but no tachycardia, tachypnea or hypoxia. Hemoglobin is 18.4, hematocrit 52.7 probably due to hemoconcentration. Urine specific gravity is normal, protein 500, CK 1000 371 suggestive of rhabdomyolysis 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) Allergies Unable to Assess Allergy (Verified 05/11/18 10:59) Smoking Status: Current every day smoker - *Family History Maternal History Items: No pertinent history Review of Systems Constitutional: Denies: Chills, Fever, Weight Change Eyes: Reports: - HEENT: Reports: Difficulty Hearing - In both ears Cardiovascular: Denies: Chest Pain, Palpitations Respiratory: Denies: Cough, Shortness of breath at rest, Sputum production Gastrointestinal: Reports: - - Mild abdominal distention but no pain. Denies tense abdomen and is moving his bowels regularly, last one yesterday. Denies hard stool.. Denies: Abdominal Pain, Nausea, Vomiting Genitourinary: Reports: - - Dark urine. Denies: Dysuria Musculoskeletal: Reports: Back Pain, Joint Pain, Joint stiffness, Joint swelling, Joint Tenderness, Leg Pain, Muscle pain, Neck Pain Skin: Denies: Rash, Wounds Neurological: Reports: Balance problems. Denies: Focal weakness, Numbness, Tingling Psychiatric: Denies: Anxiety, Depression, Homicidal Ideations, Suicidal Ideations Hematologic/ Lymphatic: Denies: Easy Bruising, Easy Bleeding VTE Information - Inpt Only VTE Present on Admission: No VTE Pharm Prophylaxis ordered?: Yes Patient Problems: Active and Suspected Problems Fall (Acute) Rhabdomyolysis (Acute) - Physical Exam General: Alert, Oriented x3, Cooperative HEENT: Atraumatic, PERRLA, EOMI, Normocephalic Oral: Dry Mucosa Neck: Supple, No JVD, Negative Carotid Bruits Lungs: Clear to auscultation, Diminished - Air entry diminished in bilateral lung bases Cardiovascular: Regular rate, Regular Rhythm, Normal S1, Normal S2, No murmurs Abdomen: Bowel Sounds Present, Soft, Non Tender, Hypoactive Bowel Sounds, Distended - Seems gaseous distention. Tympanic percussion sounds Extremities: No edema, Capillary Refill Less than 3 Seconds Skin: No rashes, Rash Present - Dry with chronic fissuring and thickening with a scaling like Toad skin, typical of psoriatic Musculoskeletal: Arthritic Changes, Muscle Wasting, Tenderness - Severe tenderness present over lumbar spine, neck and right hip. Not able to flex right hip and right knee. Lower extremity weakness secondary to pain. Neurological: Cranial nerves II-XII grossly intact, - - DTR 3+ in both knees. Babinski sign negative Psych/Mental Status: Normal Affect, Appropriate Vital Signs Temp Pulse Resp BP Pulse Ox 98.2 F 93 16 195/117 H 96 05/11/18 10:30 05/11/18 10:30 05/11/18 10:30 05/11/18 10:30 05/11/18 10:30 Oxygen Delivery Method Room Air Weight: 170 lb Body Mass Index (BMI) 28.3 Laboratory Tests Past 24 Hrs WBC 16.6 H RBC 5.77 Hgb 18.4 H* Hct 52.7 Assessment/Plan All Active Problems Fall (Acute) Rhabdomyolysis (Acute) The patient is a 62 year old M with significant history of lumbosacral spondylosis and cervical spondylosis with chronic neck and back pain, sciatica in nature came to ER after he fell down yesterday. He fell down because his right hip twisted as he was walking on the level ground. He could not stand up or move around and was laying down for 12 hours. Patient denies loss of consciousness or hitting the head. Before fall, he was not using cane or walker but he used cane in the past for some time. Patient is not able to roll over or sit up because of severe pain. He further states he has chronic back pain and neck pain for more than 20 years with history of 5 times back injuries. He denies back surgery. His neck is in chronic flexor deformity. He is to see chiropractor in [facility] and probably some environmental services coordinator there and was put on Enbrel. He said it did not help one probably currently not following any doctor. In ED, his blood pressure was found high 195/117, but no tachycardia, tachypnea or hypoxia. Hemoglobin is 18.4, hematocrit 52.7 probably due to hemoconcentration. Urine specific gravity is normal, protein 500, CK 1000 371 suggestive of rhabdomyolysis. 1. Fall most likely mechanical secondary to chronic right hip joint arthritis exacerbated with chronic lumbosacral degenerative spondylosis with rhabdomyolysis: Patient is being admitted on regular MedSurg floor. IV fluid normal saline at 150 mL/h. Monitor intake and output. Monitor CK daily. PT and OT. Pain management and muscle relaxant. 2. Chronic lumbosacral pain, sciatica in nature with features of ankylosing spondylitis on thoracic and lumbar spine x-rays: Although patient does not know the diagnosis of ankylosing spondylitis but he has positive symptoms of and he was getting Enbrel for that. 3. Hemoconcentration with severe dehydration: IV fluid as mentioned above. 4. 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 DVT prophylaxis: On Lovenox 40 mg subcuT daily Clinical Impression(s) from Imaging Studies Hip/Pelvis X-Ray 05/11/18 10:32 IMPRESSION: Degenerative changes of the hip. Findings suggestive of ankylosing spondylitis. Lumbar Spine X-Ray 05/11/18 10:32 IMPRESSION: Findings in keeping with ankylosing spondylitis. Thoracic Spine X-Ray 05/11/18 10:32 IMPRESSION: Findings in keeping with ankylosing spondylitis. Gallstones. Code Visit Inpatient E AND M: [id number] Init Hosp L3 05/11/18 1353 <Electronically signed by Sudheer Lawton MD> Date Sudheer Lawton MD Cosigner Signature: Date (if applicable) CC: Yang Saul MD; Sudheer Lawton MD Signed ABD INC DECUB Observed: 05/11/2018 Status: F Source: [place] AND/OR ERECT 1:52 PM [facility] Imaging Services [address] [place] [address] Abd Inc Decub and/or Erect MR#: [id number] Acct: [id number] Name: LINUSSHARONKAVON Rep #: [id number] : 1955 M 62 From: Venkata Franklin MD PCP: Yang Saul MD Status: ADM IN Study: Abd Inc Decub and/or Erect Date of Exam: 05/11/18 Exam# [id number] Ordering Dr: Sudheer Lawton MD STUDY: X-RAY - ABDOMEN/PELVIS REASON FOR EXAM: Male, 62 years old. Back pain and hip pain following a fall. TECHNIQUE: AP supine and upright views of the abdomen and pelvis. COMPARISON: None. FINDINGS: Linear scarring or atelectasis at the right lung base. There is a moderate amount of colonic fecal material. There is no demonstrated free abdominal air. Calcified gallstones. 3 mm calculus in the lower pole of the right kidney. Normal soft tissue structures. Findings indicative with ankylosis spondylitis. Multilevel degenerative changes of the lumbar spine with fusion of the sacroiliac joints bilaterally. RAD/Abd Inc Decub and/or Erect IMPRESSION: Gallstones. Calculus in the lower focus of the right kidney. Findings in keeping with ankylosing spondylitis. Electronically Signed: Venkata Franklin MD at 14:46 EST Tel [phone], Service support , CC: Yang Saul MD; Sudheer Lawton MD Confectionery Maker: Signed URINALYSIS, COMPLETE Collected: 05/11/2018 Status: F Source: [place] 12:25 PM [facility] Order Comment: How was Urine Obtained? [employer]ICAL LABORATORY MECHANIC TO SPECIFY TYPE CODE TESTS RESULT OUT OF RANGE REFERENCE UNITS LAB L400.3000 Yellow COLOR Normal Yellow LAB L400.3050 Clear Normal CLARITY Sl. Cloudy LAB L400.3200 Normal mg/dl Normal GLUCOSE, UR Normal LAB L400.3300 Negative mg/dL Normal BILIRUBIN URINE Negative LAB L400.3400 Negative mg/dl High 5 KETONE UR LAB L400.3465 1.002-1.030 Normal SP.GR. DIPSTX 1.025 LAB L400.3550 5.0 - 8.0 pH UR Normal 5.0 LAB L400.3600 Negative mg/dl High PROT DIPSTX 500 LAB L400.3700 Normal mg/dl High 1 UROBILI LAB L400.3750 Negative Normal NITRITE UR Negative LAB L400.3780 Negative /ul High OCCULT BLOOD-UR 250 LAB L400.3800 Negative /ul High LEUK 25 ESTERASE LAB L400.4050 0-5 /hpf WBC Normal 0-5 SEEN LAB L400.4100 0-5 /hpf 0 Normal RBC-UA SEEN LAB L400.4150 0-5 /hpf SQUAM 0 Normal EPI SEEN LAB L400.4300 None Seen /hpf 0 Normal BACTERIA SEEN LAB L400.4350 <or=2+ /hpf 0 Normal MUCUS, URINE SEEN LAB L400.4400 0-5 /lpf Normal HYALINE CAST 0-5 SEEN Performed By: #### L400.0001 #### [facility] [address] [place], [address] URINE DRUG SCREEN Collected: 05/11/2018 Status: F Source: [facility] 12:25 PM [facility] TYPE CODE TESTS RESULT OUT OF RANGE REFERENCE UNITS LAB L505.0075 TO BE Normal CONFIRMED Result Comment: CONFIRMATORY TESTING FOR ALL POSITIVE URINE DRUG SCREEN RESULTS WILL ONLY BE SENT OUT UPON PHYSICIAN ORDER. VISTA Urine Drug Screen methods provide only preliminary analytical test results. A more specific alternate chemical method must be used in order to obtain a confirmed analytical result. Gas chromatography/mass spectrometery (GC/MS) is the preferred confirmatory method. Clinical consideration and professional judgement should be applied to any drug of abuse test result, particularly when preliminary positive results are used. URINE TCA TESTING MUST BE ORDERED SEPARATELY. USE TEST MNEMONIC: [facility] LAB L505.5005 VISTA UDS PH 7 Normal LAB L505.5015 <1000 ng/mL AMPHETAMINES Normal NEGATIVE LAB L505.5025 < 200 ng/mL BARBITIURATES Normal NEGATIVE LAB L505.5035 < 200 ng/mL BENZODIAZIPINE Normal NEGATIVE LAB L505.5045 < 300 ng/mL COCAINE Normal NEGATIVE LAB L505.5055 < 500 ng/mL ECSTACY Normal NEGATIVE LAB L505.5065 < 300 ng/mL METHADONE Normal NEGATIVE LAB L505.5075 < 300 ng/mL OPIATES Normal NEGATIVE LAB L505.5085 < 25 ng/mL PCP Normal NEGATIVE LAB L505.5095 < 50 High ng/mL THC POSITIVE Performed By: #### L505.5000 #### [facility] [place], [address] CBC W/DIFF, AUTOMATED Collected: 05/11/2018 Status: F Source: [place] 10:47 AM [facility] TYPE CODE TESTS RESULT OUT OF RANGE REFERENCE UNITS LAB L100.1000 4.4-11.0 K/mm3 High WBC 16.6 LAB L100.1200 4.6-6.2 M/mm3 Normal RBC 5.77 LAB L100.1300 13.0-16.5 g/dl High alert HGB 18.4 Result Comment: CRITICAL VALUE VERIFIED. CALLED TO JARRED AGUERO 05/11/18 1108 Zaid Quijano. RESULTS READ BACK BY SAME. LAB L100.1400 40-54 % Normal HCT 52.7 LAB L100.1500 80-94 fL Normal MCV 91.3 LAB L100.1600 27.0-32.0 pg Normal MCH 31.9 LAB L100.1700 32-36 g/gl Normal MCHC 34.9 LAB L100.1810 11.6-14.6 % Normal RDW CV 12.7 LAB L100.1820 35.1-43.9 fl Normal RDW SD 41.8 LAB L100.1900 150-450 K/mm3 Low PLT 102 LAB L100.2000 6.2-12.0 fl Normal MPV 10.1 LAB L100.2100 47-70 % High NEUT% 86.0 LAB L100.2200 19-41 % Low LY% 10.0 LAB L100.2300 0-10 % Normal MONO% 3.7 LAB L100.2400 0-5 % Normal EO% 0.0 LAB L100.2500 0-1 % Normal BASO% 0.1 LAB L100.2550 0.0-0.9 % Normal IM GRAN % 0.200 Result Comment: IG% - Immature Granulocytes (promyelocytes, myelocytes and metamyelocytes) > 1% indicates that a LEFT SHIFT is Present. LAB L100.2620 2.0-7.7 X10 3/uL High Absolute Neut 14.3 LAB L100.2720 0.83-4.51 X10 3/ul Normal Absolute Lymph 1.65 Performed By: #### L100.0100 #### [facility] [address] [place], [place], [address] BASIC METABOLIC Collected: 05/11/2018 Status: F Source: [place] PROFILE (BMP) 10:47 AM [facility] TYPE CODE TESTS RESULT OUT OF RANGE REFERENCE UNITS LAB L501.0100 74-106 mg/dL High GLU 122 Result Comment: Fasting Glucose result from 100 to 125 mg/dL suggests IMPAIRED HOMEOSTASIS per A.D.A. criteria. Please note revised GLUCOSE reference range effective 2017. LAB L501.1000 7-18 mg/dL Normal BUN 11 LAB L501.1100 0.70-1.30 mg/dL Normal CREAT,SERUM 0.89 Result Comment: The validity of the calculated GFR AND GFRAA in patients over 70 years has not been determined. Clinical correlation is essential. LAB L501.1110 >60 mL/min Normal EST GFR 92 Result Comment: Non- GFR Calc LAB L501.1115 >60 mL/min Normal EST GFR - AA 111 Result Comment: GFR Calc LAB L501.1255 ml/min Normal Estimated CRCL 75.82 LAB L501.1300 10-20 RATIO Normal BUN/CRE 12.3 LAB L501.2200 8.5-10 mg/dL Normal .1 CA 8.6 LAB L501.5300 136-14 mmol/L Normal 5 NA 143 LAB L501.5600 3.5-5. mmol/L Normal 1 K 3.5 LAB L501.5900 98-107 mmol/L Normal CL 102 LAB L501.6100 21.0-3 mmol/L Normal 2.0 CO2 29.0 LAB L501.6200 5-15 Normal GAP 12 Performed By: #### L500.2500, L501.3620 #### [facility] [address] [place], [address] CPK TOTAL, CREATINE Collected: 05/11/2018 Status: F Source: [place] KINASE 10:47 AM [facility] TYPE CODE TESTS RESULT OUT OF RANGE REFERENCE UNITS LAB L501.3620 39-308 U/L High CPK TOTAL 1371 Performed By: #### L500.2500, L501.3620 #### [facility] [address] [place], [address] HIP, UNI W/ PELVIS Observed: 05/11/2018 Status: F Source: [place] 2-3 VIEWS 10:33 AM [facility] Imaging Services [address] [place] [address] HIP, UNI W/ Pelvis 2-3 Views MR#: [id number] Acct: [id number] Name: KAVON HEARN Rep #: [id number] : 1955 M 62 From: Venkata Franklin MD PCP: Yang Saul MD Status: REG ER Study: HIP, UNI W/ Pelvis 2-3 Views Date of Exam: 05/11/18 Exam# [id number] Ordering Dr: Jagdish Bentley MD STUDY: X-RAY - RIGHT HIP REASON FOR EXAM: Male, 62 years old. Right hip pain following recent fall. TECHNIQUE: 2 views of the hip. COMPARISON: None. FINDINGS: Normal femoral head, neck, intertrochanteric region and visualized proximal femur. There is osteoarthritic spur formation of the acetabular rim. There is moderate articular joint space narrowing. Normal visualized superior and inferior pubic rami and ischial tuberosities. Fusion of the symphysis pubis. There is fusion of the sacroiliac joints bilaterally. There is evidence of a disc space narrowing in the lower lumbar spine with fusion of the spinous processes suggestive of a ankylosing spondylitis. RAD/HIP, UNI W/ Pelvis 2-3 Views IMPRESSION: Degenerative changes of the hip. Findings suggestive of ankylosing spondylitis. Electronically Signed: Venkata Franklin MD at 12:15 EST Tel [phone], Service support , CC: Yang Saul MD; Jagdish Bentley MD Confectionery Maker: Signed LUMBAR SPINE 2 OR 3 Observed: 05/11/2018 Status: F Source: [place] VIEWS 10:33 AM [facility] Imaging Services [address] [place] [address] Lumbar Spine 2 or 3 Views MR#: [id number] Acct: [id number] Name: KAVON HEARN Rep #: [id number] : 1955 M 62 From: Venkata Franklin MD PCP: Yang Saul MD Status: REG ER Study: Lumbar Spine 2 or 3 Views Date of Exam: 05/11/18 Exam# [id number] Ordering Dr: Jagdish Bentley MD STUDY: X-RAY - LUMBAR SPINE REASON FOR EXAM: Male, 62 years old. History of recent fall. Chronic back pain. TECHNIQUE: 3 view(s) of the lumbar spine were obtained. COMPARISON: None FINDINGS: There is straightening of the normal lumbar lordosis. There is no substantial scoliosis. There is a normal alignment of the vertebrae. There is multilevel endplate spondylosis of the lumbar vertebrae. There is multi-level degenerative disc disease with multi-level disc space narrowing. Findings in keeping with ankylosing spondylitis. Fusion of the sacroiliac joints bilaterally. There is atherosclerotic calcification of the abdominal aorta without a demonstrated aneurysm. Gallstones. There is a 3.6 mm calculus in the lower pole calyx of the right kidney. RAD/Lumbar Spine 2 or 3 Views IMPRESSION: Findings in keeping with ankylosing spondylitis. Electronically Signed: Venkata Franklin MD at 12:17 EST Tel [phone], Service support , CC: Yang Saul MD; Jagdish Bentley MD Confectionery Maker: Signed THORACIC SPINE 3 Observed: 05/11/2018 Status: F Source: [place] VIEWS 10:33 AM [facility] Imaging Services [address] [place] [address] Thoracic Spine 3 Views MR#: [id number] Acct: [id number] Name: KAVON HEARN Rep #: [id number] : 1955 M 62 From: Venkata Franklin MD PCP: Yang Saul MD Status: REG ER Study: Thoracic Spine 3 Views Date of Exam: 05/11/18 Exam# [id number] Ordering Dr: Jagdish Bentley MD STUDY: X-RAY - THORACIC SPINE REASON FOR EXAM: Male, 62 years old. Chronic back pain. TECHNIQUE: 3 view(s) of the thoracic spine were obtained. COMPARISON: None. FINDINGS: There is an increase in the normal thoracic kyphosis. There is no substantial scoliosis. There is multilevel endplate spondylosis of the thoracic vertebrae. There is multilevel disc space narrowing of the thoracic spine. Findings in keeping with ankylosing spondylitis. Gallstones. RAD/Thoracic Spine 3 Views IMPRESSION: Findings in keeping with ankylosing spondylitis. Gallstones. Electronically Signed: Venkata Franklin MD at 12:18 EST Tel [phone], Service support , CC: Yang Saul MD; Jagdish Bentley MD Confectionery Maker: Signed CNPN Observed: 04/19/2018 Status: COMPLETED Source: [place] 12:00 AM [facility] REPOSITORY Telephone (ASWSTR) LINUSKAVON HERRERA ([id number]) 1955 M Date Time Provider Department 04/19/18 RICHARD SUNSHINE During your visit today, we recorded the following information about you: Payton Rankinron Psr 04/19/2018 2:49 PM Signed 1st failed attempt to contact patient about scheduling colonoscopy. Left voice message. Payton Monteiroharinder Psr Shyla Ruizbintabuzz 04/25/2018 10:15 AM Signed 2nd failed attempt to contact patient, left voice message Shyla Castillo 05/02/2018 9:45 AM Signed Spoke with patient states that he does not want a colonoscopy and hung up before I could ask about the IFOBT test Shyla Castillo Allergies As of Date: 04/19/2018 Noted Allergy Reaction ENBREL (ETANERCEPT) 02/06/2011 14 - Other: See Comments Comments: Uveitis, hearing loss NIACIN 06/08/2011 14 - Other: See Comments Comments: [place] NSAIDS (NON-STEROIDAL ANTI-INFLAM*01/22/2005 7 - Swelling TRICOR (FENOFIBRATE MICRONIZED) 06/08/2011 8 - GI Upset Date Reviewed: 09/16/2017 Reviewed by: Aretha Jerez Ma - Fully Assessed Reason for Visit: Outpatient Colonoscopy [482] Prescriptions as of 04/19/2018 Sig: POTASSIUM 99 MG TABLET Take by mouth. As needed for * OMEPRAZOLE 20 MG CAPSULE,DAIJA* Take 1 capsule by mouth twice* LISINOPRIL 20 MG-HYDROCHLOROT* Take 1 tablet by mouth once d* Problem List As Of Date 04/19/2018 Noted Resolved BENIGN HYPERTENSION [I10] 06/10/2007 CALCULUS OF KIDNEY [N20.0] DIZZINESS AND GIDDINESS [R42] More... 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 Osteoporosis [M81.0] Decreased hearing of both ears [H91.93] Encounter Status:Closed by PAYTON BISWAS on 04/19/18 PROGRESS Observed: 09/16/2017 Status: COMPLETED Source: [place] 1:28 PM [facility] REPOSITORY O ID: [id number] Author: Richard Sunshine Service: (none) Author Type: Physician Type: Progress Notes Filed: 09/16/2017 1:46 PM Note Text: Patient presents with: Hypertension GERD Lipids HPI: Patient presents today for office visit for followup. Nursing Notes: Aretha Jerez Ma 09/16/2017 1:28 PM Unsigned GERD: Pt has only been taking Omeprazole 20 mg once a day, instead of 2 times. He has cut out coffee, red meat, processed meat, tomatoes, peppers, and garlic from his diet. ARTHRITIS: Since cleaning up his diet, he has not had a flare up of pain. HTN: Pt will randomly check his BP at local pharmacy. Taking the Lisinopril/HCTZ as prescribed. Denies side effects. Denies chest pain, SOB, palpitations, edema, H/A, dizziness. INSOMNIA: Pt no longer having nightmares. Sleeping well, no longer needs Melatonin. HERNIA: Pt notices that the last 2 years hernia is getting larger. Denies any pain. Overall doing well. Was previously diagnosed with RA but asymptomatic. Back has been doing well. Reminded to follow with optho since had glaucoma. Vision has been good. Emotionally doing well. Skin is still quite dry and scaly. Has never seen dermatology. Goes away in the summer. Recommended derm Has swelling near his midline scar. MEDICATIONS: Current Outpatient Prescriptions: Potassium 99 mg tab Take by mouth. As needed for leg cramps lisinopril-hydrochlorothiazide (PRINZIDE, ZESTORETIC) 20-25 mg per tablet Take 1 tablet by mouth once daily. omeprazole (PRILOSEC) 20 mg capsule Take 1 capsule by mouth twice daily. No current facility-administered medications for this visit. ALLERGIES: ALLERGIES Allergen Reactions - Enbrel [Etanercept] Other: See Comments Uveitis, hearing loss - Niacin Other: See Comments [place] - Nsaids (Non-Steroid* Swelling - Tricor [Fenofibrate* GI Upset PAST MEDICAL HISTORY Diagnosis Date - Acquired cyst of kidney 11/23 bilateral small renal cysts per abd CT - Acquired keratoderma Icthyosis - Acute gastritis treated with H2 blockers - Ankylosing spondylitis (HCC) LBP since 1984. 1987 WC claim: bumped by cement truck; partial disab. dx A.S.per /(+)bone scan bilat.SIj's. Ref.to Rheum. : Azulfidine. XR degen: L1-2, L2-3, L3-4; ant.wedge fx T7,T8; 01/23 XR: symm.syndesmophytes LS+T spine, oblit.of SI joints. Extensive PT w/o progress; [address] 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 Modesto Roman [facility] 04/22/04. Deemed not fixable: rec total shoulder arthroplasty. In past: multiple steroid injections; 2004 PT with 21 sessions, excellent compliance with minimal improvement . - Decreased hearing of both ears - Dizziness and giddiness init. dx labyrinthitis; headache, recurrent episodes, personality changes. 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 Mcmanus - GLAUCOMA SURG,IRIDENCLEISIS laser surgery - LAPAROSCOPY, SURGICAL; ORCHIECTOMY exploration right groin, right orchiopexy, undescended - PAST SURGICAL HISTORY OF blunt abdominal trauma: kicked by cow. exploratory surgery: no findings except bruised kidney on left. Worker Comp claim - PAST SURGICAL HISTORY OF excision tooth FAMILY HISTORY Problem Relation Age of Onset - Diabetes Mother 62 - Coronary Artery Disease Father 58 - Arthritis Father rheumatoid - Arthritis Sister rheumatoid - Cancer Maternal Grandmother uterine cancer - Alcohol/Drug Brother alcohol, triplet - Arthritis Brother ankylosing, triplet Social History Marital status: Single Spouse name: Years of education: 12 Number of children: 3 Social History Main Topics Smoking status: Current Every Day Smoker Packs/day: 0.25 Years: 30.00 Types: Cigarettes Smokeless status: Never Used Comment: 3 per day Alcohol use: Yes Comment: couple glasses wine holidays; hx heavier use Drug use: No Comment: marijuana in past Social History Narrative Triplet Last employment [employer] [place] 2002, 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 Claims was taken off work by specialists who felt work was aggrevating his conditions. He walks a lot for entertainment. Watches DVD's. Uses a home computer for brief periods. Works in a garden. 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 . 3 grown children. 1 son, 2 daughters Discussed tobacco cessation, including risks of continued use. Offered assistance to help quit if patient desires. Reviewed current medications, allergies, past medical history, surgical history, family history and social history today. REVIEW OF SYSTEMS GI: Negative for abdominal discomfort, blood in stools or black stools, change in bowel habit : No history of dysuria, frequency or incontinence All other reviewed and negative other than HPI. HEALTH MAINTENANCE: Reviewed health maintenance issues today and recommended the following in detail. FECAL OCCULT BLOOD due on 2006 TETANUS due on 07/23/2015 VITALS: BP 114/70 Pulse 72 Resp 20 Wt 73.5 kg (162 lb) BMI 26.55 kg/m2 Last 4 Encounter Wt Readings: Date: Wt: 09/16/2017 73.5 kg (162 lb) 10/08/2015 75.3 kg (166 lb) 01/05/2015 76.7 kg (169 lb) 02/20/2014 76.2 kg (168 lb) PHYSICAL EXAMINATION: General appearance: Well appearing, alert, in no acute distress, well-hydrated, well nourished. Skin: very dry scaly skin. Recommended derm-declines Neck: Supple, no adenopathy; thyroid symmetric, normal size, no bruits Lungs: Lungs clear to auscultation. No wheezing, rhonchi, rales Heart: RRR without murmur, gallop, or rubs. No ectopy Abdomen: Normal abdominal exam, Abdomen soft, non-tender. Bowel sounds normal. No masses, organomegaly, in area of rectus sheath but is over his midline scar.?? Hernia. -offered surgical referral. Red flags for re-assessment reviewed with patient in detail. Extremities: No deformities, edema, skin discoloration, clubbing or cyanosis. Good capillary refill. ASSESSMENT/PLAN: 1. Essential hypertension - ICD9: 401.9, ICD10: I10 (primary diagnosis) - good control - Continue current medication(s) - Encouraged dietary sodium restriction/DASH diet - Discussed need and benefit for weight loss. - Goal of BP <140/90 - LISINOPRIL 20 MG-HYDROCHLOROTHIAZIDE 25 MG TABLET - COMP METABOLIC PANEL 2. Gastroesophageal reflux disease without esophagitis - ICD9: 530.81, ICD10: K21.9 - Continue current treatment. - OMEPRAZOLE 20 MG CAPSULE,DELAYED RELEASE 3. Decreased hearing of both ears - ICD9: 389.9, ICD10: H91.93 - stable. Uses hearing aids but not doing very well 4. Mixed hyperlipidemia - ICD9: 272.2, ICD10: E78.2 - to be determined upon return of lab results - Continue current medication. - LIPID PANEL BASIC 5. Screening for colon cancer - ICD9: V76.51, ICD10: Z12.1 - FECAL OCCULT BLOOD TEST 6. 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 Rheumatoid arthritis, involving unspecified site, unspecified rheumatoid factor presence (HCC) - ICD9: 714.0, ICD10: M06.9 - check labs - SED RATE WESTERGREN - C-REACTIVE PROTEIN (CRP) - RHEUMATOID FACTOR BL 8. Ankylosing spondylitis, unspecified site of spine (HCC) - ICD9: 720.0, ICD10: M45.9 - call if worsens. 9. Tobacco use disorder - ICD9: 305.1, ICD10: F17.200 - Cessation encouraged. - Physiologic and physical aspects of tobacco addiction as well as strategies for quitting were discussed. - Counseling was given focusing on the harmful effects of this addiction especially given the patient's medical condition(s) which will be worsened because of the chemicals in tobacco. 10. Hyperglycemia - ICD9: 790.29, ICD10: R73.9 - HGB A1C Richard Sunshine MD RTO in six months and prn. MAULIK Observed: 09/16/2017 Status: COMPLETED Source: [place] 1:00 PM [facility] REPOSITORY Office Visit (FAMPWS) KAVON HEARN ([id number]) 1955 M Date Time Provider Department 09/16/17 1:00 PM [facility] During your visit today, we recorded the following information about you: Pulse Respiration Blood pressure Weight 72/minute 20/minute 114/70 73.5 kg Aretha Jerez Ma 09/16/2017 1:29 PM Signed GERD: Pt has only been taking Omeprazole 20 mg once a day, instead of 2 times. He has cut out coffee, red meat, processed meat, tomatoes, peppers, and garlic from his diet. ARTHRITIS: Since cleaning up his diet, he has not had a flare up of pain. HTN: Pt will randomly check his BP at local pharmacy. Taking the Lisinopril/HCTZ as prescribed. Denies side effects. Denies chest pain, SOB, palpitations, edema, H/A, dizziness. INSOMNIA: Pt no longer having nightmares. Sleeping well, no longer needs Melatonin. HERNIA: Pt notices that the last 2 years hernia is getting larger. Denies any pain. Richard Sunshine MD 09/16/2017 1:46 PM Signed Patient presents with: Hypertension GERD Lipids HPI: Patient presents today for office visit for followup. Nursing Notes: Arethagabino Jerez Ma 09/16/2017 1:28 PM Unsigned GERD: Pt has only been taking Omeprazole 20 mg once a day, instead of 2 times. He has cut out coffee, red meat, processed meat, tomatoes, peppers, and garlic from his diet. ARTHRITIS: Since cleaning up his diet, he has not had a flare up of pain. HTN: Pt will randomly check his BP at local pharmacy. Taking the Lisinopril/HCTZ as prescribed. Denies side effects. Denies chest pain, SOB, palpitations, edema, H/A, dizziness. INSOMNIA: Pt no longer having nightmares. Sleeping well, no longer needs Melatonin. HERNIA: Pt notices that the last 2 years hernia is getting larger. Denies any pain. Overall doing well. Was previously diagnosed with RA but asymptomatic. Back has been doing well. Reminded to follow with optho since had glaucoma. Vision has been good. Emotionally doing well. Skin is still quite dry and scaly. Has never seen dermatology. Goes away in the summer. Recommended derm Has swelling near his midline scar. MEDICATIONS: Current Outpatient Prescriptions: Potassium 99 mg tab Take by mouth. As needed for leg cramps lisinopril-hydrochlorothiazide (PRINZIDE, ZESTORETIC) 20-25 mg per tablet Take 1 tablet by mouth once daily. omeprazole (PRILOSEC) 20 mg capsule Take 1 capsule by mouth twice daily. No current facility-administered medications for this visit. ALLERGIES: ALLERGIES Allergen Reactions - Enbrel [Etanercept] Other: See Comments Uveitis, hearing loss - Niacin Other: See Comments Flushing - Nsaids (Non-Steroid* Swelling - Tricor [Fenofibrate* GI Upset PAST MEDICAL HISTORY Diagnosis Date - Acquired cyst of kidney 11/23 bilateral small renal cysts per abd CT - Acquired keratoderma Icthyosis - Acute gastritis treated with H2 blockers - Ankylosing spondylitis (HCC) LBP since 1984. 1987 WC claim: bumped by cement truck; partial disab. dx A.S.per /(+)bone scan bilat.SIj's. Ref.to Rheum. : Azulfidine. XR degen: L1-2, L2-3, L3-4; ant.wedge fx T7,T8; 01/23 XR: symm.syndesmophytes LS+T spine, oblit.of SI joints. Extensive PT w/o progress; [address] 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 Modesto Roman [facility] 04/22/04. Deemed not fixable: rec total shoulder arthroplasty. In past: multiple steroid injections; 2003 PT with 21 sessions, excellent compliance with minimal improvement . - Decreased hearing of both ears - Dizziness and giddiness init. dx labyrinthitis; headache, recurrent episodes, personality changes. 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 Mcmanus - GLAUCOMA SURG,IRIDENCLEISIS laser surgery - LAPAROSCOPY, SURGICAL; ORCHIECTOMY exploration right groin, right orchiopexy, undescended - PAST SURGICAL HISTORY OF blunt abdominal trauma: kicked by cow. exploratory surgery: no findings except ANDquot;bruised kidneyANDquot; on left. Worker Comp claim - PAST SURGICAL HISTORY OF excision tooth FAMILY HISTORY Problem Relation Age of Onset - Diabetes Mother 62 - Coronary Artery Disease Father 58 - Arthritis Father rheumatoid - Arthritis Sister rheumatoid - Cancer Maternal Grandmother uterine cancer - Alcohol/Drug Brother alcohol, triplet - Arthritis Brother ankylosing, triplet Social History Marital status: Single Spouse name: Years of education: 12 Number of children: 3 Social History Main Topics Smoking status: Current Every Day Smoker Packs/day: 0.25 Years: 30.00 Types: Cigarettes Smokeless status: Never Used Comment: 3 per day Alcohol use: Yes Comment: couple glasses wine holidays; hx heavier use Drug use: No Comment: marijuana in past Social History Narrative Triplet Last employment [employer] 2002, 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 Claims was taken off work by specialists who felt work was aggrevating his conditions. He walks ANDquot;a lotANDquot; for entertainment. Watches DVD's. Uses a home computer for brief periods. Works in a garden. 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 . 3 grown children. 1 son, 2 daughters Discussed tobacco cessation, including risks of continued use. Offered assistance to help quit if patient desires. Reviewed current medications, allergies, past medical history, surgical history, family history and social history today. REVIEW OF SYSTEMS GI: Negative for abdominal discomfort, blood in stools or black stools, change in bowel habit : No history of dysuria, frequency or incontinence All other reviewed and negative other than HPI. HEALTH MAINTENANCE: Reviewed health maintenance issues today and recommended the following in detail. FECAL OCCULT BLOOD due on 2006 TETANUS due on 07/23/2015 VITALS: BP 114/70 Pulse 72 Resp 20 Wt 73.5 kg (162 lb) BMI 26.55 kg/m2 Last 4 Encounter Wt Readings: Date: Wt: 09/16/2017 73.5 kg (162 lb) 10/08/2015 75.3 kg (166 lb) 01/05/2015 76.7 kg (169 lb) 02/20/2014 76.2 kg (168 lb) PHYSICAL EXAMINATION: General appearance: Well appearing, alert, in no acute distress, well-hydrated, well nourished. Skin: very dry scaly skin. Recommended derm-declines Neck: Supple, no adenopathy; thyroid symmetric, normal size, no bruits Lungs: Lungs clear to auscultation. No wheezing, rhonchi, rales Heart: RRR without murmur, gallop, or rubs. No ectopy Abdomen: Normal abdominal exam, Abdomen soft, non-tender. Bowel sounds normal. No masses, organomegaly, in area of rectus sheath but is over his midline scar.?? Hernia. -offered surgical referral. Red flags for re-assessment reviewed with patient in detail. Extremities: No deformities, edema, skin discoloration, clubbing or cyanosis. Good capillary refill. ASSESSMENT/PLAN: 1. Essential hypertension - ICD9: 401.9, ICD10: I10 (primary diagnosis) - good control - Continue current medication(s) - Encouraged dietary sodium restriction/DASH diet - Discussed need and benefit for weight loss. - Goal of BP ANDlt;140/90 - LISINOPRIL 20 MG-HYDROCHLOROTHIAZIDE 25 MG TABLET - COMP METABOLIC PANEL 2. Gastroesophageal reflux disease without esophagitis - ICD9: 530.81, ICD10: K21.9 - Continue current treatment. - OMEPRAZOLE 20 MG CAPSULE,DELAYED RELEASE 3. Decreased hearing of both ears - ICD9: 389.9, ICD10: H91.93 - stable. Uses hearing aids but not doing very well 4. Mixed hyperlipidemia - ICD9: 272.2, ICD10: E78.2 - to be determined upon return of lab results - Continue current medication. - LIPID PANEL BASIC 5. Screening for colon cancer - ICD9: V76.51, ICD10: Z12.1 - FECAL OCCULT BLOOD TEST 6. 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 Rheumatoid arthritis, involving unspecified site, unspecified rheumatoid factor presence (HCC) - ICD9: 714.0, ICD10: M06.9 - check labs - SED RATE WESTERGREN - C-REACTIVE PROTEIN (CRP) - RHEUMATOID FACTOR BL 8. Ankylosing spondylitis, unspecified site of spine (HCC) - ICD9: 720.0, ICD10: M45.9 - call if worsens. 9. Tobacco use disorder - ICD9: 305.1, ICD10: F17.200 - Cessation encouraged. - Physiologic and physical aspects of tobacco addiction as well as strategies for quitting were discussed. - Counseling was given focusing on the harmful effects of this addiction especially given the patient's medical condition(s) which will be worsened because of the chemicals in tobacco. 10. Hyperglycemia - ICD9: 790.29, ICD10: R73.9 - HGB A1C Richard Sunshine MD RTO in six months and prn. Referring Provider: SELF [200] Allergies As of Date: 09/16/2017 Noted Allergy Reaction ENBREL (ETANERCEPT) 02/06/2011 14 - Other: See Comments Comments: Uveitis, hearing loss NIACIN 06/08/2011 14 - Other: See Comments Comments: [place] NSAIDS (NON-STEROIDAL ANTI-INFLAM*01/22/2005 7 - Swelling TRICOR (FENOFIBRATE MICRONIZED) 06/08/2011 8 - GI Upset Date Reviewed: 09/16/2017 Reviewed by: Aretha Jerez Ma - Fully Assessed Reason for Visit: Hypertension [168] GERD [548] Lipids [63] Primary Visit Diagnosis:Essential hypertension [I10] Other Visit Diagnoses:Gastroesophageal reflux disease without esophagitis [K21.9] Decreased hearing of both ears [H91.93] Mixed hyperlipidemia [E78.2] Screening for colon cancer [Z12.11] Secondary thrombocytopenia [D69.59] Rheumatoid arthritis, involving unspecified site, unspecified rheumatoid factor presence (HCC) [M06.9] Ankylosing spondylitis, unspecified site of spine (HCC) [M45.9] Tobacco use disorder [F17.200] Hyperglycemia [R73.9] Order(s):omeprazole (PRILOSEC) 20 mg capsuleTake 1 capsule by mouth twice daily.Disp: 60 capsuleRfl: 5 lisinopril-hydrochlorothiazide (PRINZIDE, ZESTORETIC) 20-25 mg per tabletTake 1 tablet by mouth once daily.Disp: 30 tabletRfl: 5 FECAL OCCULT BLOOD TEST [SQIFOBT] Order #: [id number] FUTURE COMP METABOLIC PANEL [SQCMP] Order #: [id number] FUTURE LIPID PANEL BASIC [SQLIPB] Order #: [id number] FUTURE CBC [SQCBC] Order #: [id number] FUTURE SED RATE WESTERGREN [SQWSR] Order #: [id number] FUTURE C-REACTIVE PROTEIN (CRP) [SQCRP] Order #: [id number] FUTURE RHEUMATOID FACTOR BL [SQRF] Order #: [id number] FUTURE HGB A1C [JDTWO8H] Order #: [id number] FUTURE Prescriptions as of 09/16/2017 Sig: POTASSIUM 99 MG TABLET Take by mouth. As needed for * OMEPRAZOLE 20 MG CAPSULE,DAIJA* Take 1 capsule by mouth twice* LISINOPRIL 20 MG-HYDROCHLOROT* Take 1 tablet by mouth once d* Problem List As Of Date 09/16/2017 Noted Resolved BENIGN HYPERTENSION [I10] 06/10/2007 CALCULUS OF KIDNEY [N20.0] DIZZINESS AND GIDDINESS [R42] More... 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 Osteoporosis [M81.0] Decreased hearing of both ears [H91.93] Visit Notes: >> Aretha Jerez Marcia [facility] Sep 16, 2017 1:10 PM Status: Signed GERD: Pt has only been taking Omeprazole 20 mg once a day, instead of 2 times. He has cut out coffee, red meat, processed meat, tomatoes, peppers, and garlic from his diet. ARTHRITIS: Since cleaning up his diet, he has not had a flare up of pain. HTN: Pt will randomly check his BP at local pharmacy. Taking the Lisinopril/HCTZ as prescribed. Denies side effects. Denies chest pain, SOB, palpitations, edema, H/A, dizziness. INSOMNIA: Pt no longer having nightmares. Sleeping well, no longer needs Melatonin. HERNIA: Pt notices that the last 2 years hernia is getting larger. Denies any pain. Prescriptions ordered this encounter Disp Refills Start End OMEPRAZOLE 20 MG CAPSULE,DELAYED REL* 60 c* 5 09/16/2017 Route: ORAL Sig: Take 1 capsule by mouth twice daily. LISINOPRIL 20 MG-HYDROCHLOROTHIAZIDE* 30 t* 5 09/16/2017 Route: ORAL Sig: Take 1 tablet by mouth once daily. Medications Discontinued During This Encounter omeprazole (PRILOSEC) 20 mg capsule 60 c* 0 08/26/2017 09/16/2017 Route: ORAL Sig: Take 1 capsule by mouth twice daily. Disc: Reason for discontinue is not on file. lisinopril-hydrochlorothiazide (PRIN* 30 t* 0 08/26/2017 09/16/2017 Route: ORAL Sig: Take 1 tablet by mouth once daily. Disc: Reason for discontinue is not on file. Disposition: Return in about 6 months (around 03/18/2018). Follow-up and Disposition History Recorded Encounter Status:Closed by RICHARD SUNSHINE MD on 09/16/17 PATIENCE Observed: 08/31/2017 Status: COMPLETED Source: [place] 12:00 AM [facility] REPOSITORY Patient Outreach (INTMWH) KAVON HEARN ([id number]) 1955 M Date Time Provider Department 08/31/17 RICHARD SUNSHINE [facility] During your visit today, we recorded the following information about you: Allergies As of Date: 08/31/2017 Noted Allergy Reaction ENBREL (ETANERCEPT) 02/06/2011 14 - Other: See Comments Comments: Uveitis, hearing loss NIACIN 06/08/2011 14 - Other: See Comments Comments: [place] NSAIDS (NON-STEROIDAL ANTI-INFLAM*01/22/2005 7 - Swelling TRICOR (FENOFIBRATE MICRONIZED) 06/08/2011 8 - GI Upset Date Reviewed: 10/08/2015 Reviewed by: Manuela Scott LPN - Fully Assessed Visit Diagnosis:Medication management [Z79.899] Prescriptions as of 08/31/2017 Sig: X LISINOPRIL 20 MG-HYDROCHLOROT* Take 1 tablet by mouth once d* X OMEPRAZOLE 20 MG CAPSULE,DAIJA* Take 1 capsule by mouth twice* Problem List As Of Date 08/31/2017 Noted Resolved BENIGN HYPERTENSION [I10] 06/10/2007 CALCULUS OF KIDNEY [N20.0] DIZZINESS AND GIDDINESS [R42] More... ACUTE GASTRITIS [535.0] 03/16/2007 ANKYLOSING SPONDYLITIS [M45.9] Mixed hyperlipidemia [E78.2] INVALID FOR* THROMBOCYTOPENIA SECONDARY [287.4] INVALID FOR* TOBACCO USE DISORDER [F17.200] INVALID FOR* ESOPHAGEAL REFLUX [K21.9] INVALID FOR* Essential hypertension [I10] INVALID FOR* Rheumatoid arthritis [M06.9] Metabolic syndrome [E88.81] INVALID FOR* More... Osteoporosis [M81.0] Decreased hearing of both ears [H91.93] Encounter Status:Closed by ISAAC CORTESUSETimoteo on 03/04/18 ALLERGIES ALLERGIES DATE TYPE / CODE NAME / CODE REACTION SEVERITY SOURCE 05/22/2018 Drug wool/[id number](RX Rash Unknown [place] Allergy/416 NORM) [facility] [id number]([facility] ED CT) Repository 05/11/2018 Drug Unable to Unknown [place] Allergy/416 Assess/[id number]( [facility] 329923([facility] RXNORM) [facility] ED CT) Repository 06/08/2011 DRUG NIACIN OTHER: SEE C [facility] INGREDI/[address] [place] 160543(SNOM Repository ED CT) 06/08/2011 DRUG/[id number] FENOFIBRATE GI UPSET [facility] 003(SNOMED MICRONIZED [address] [place] CT) Repository 02/06/2011 DRUG ETANERCEPT OTHER: SEE C [facility] INGREDI/[address] [place] 980615(SNOM Repository ED CT) 01/22/2005 Drug NSAIDS SWELLING [facility] Class/49061 (NON-STEROIDAL [address] [place] 1003(SNOMED ANTI-INFLAMMATORY Repository CT) DRUG) ENCOUNTERS ENCOUNTERS ADMIT/DISCHARGE ACCOUNT NUMBER ADMITTING ENCOUNTER LOCATION SOURCE CLASS 06/14/2018 [id number] [place] [facility] ding:OLS.AVE Repository D 05/21/2018/06/10/19 [id number] [place] Encounter [facility] ding:RURoom: Repository QC232Svs: 1 05/21/2018 [id number] Antonio Ambulatory BMSBuilding: [place] BMS.WIP [facility] Repository 05/21/2018 [id number] Antonio, Ambulatory BMSBuilding: [place] José BMS.[facility] Repository 05/21/2018 [id number] Antonio, Ambulatory BMSBuilding: [place] José BMS.[facility] Repository 05/21/2018 [id number] Antonio, Ambulatory BMSBuilding: [place] José BMS.[facility] Repository 05/21/2018 [id number] Antonio Ambulatory BMSBuilding: [place] BMS.[facility] Repository 05/21/2018 [id number] Antonio Ambulatory BMSBuilding: [place] José BMS.[facility] Repository 05/14/2018/05/14/20 [id number] Unknown [facility] [address] [facility] Repository 05/14/2018 [id number] Inpatient [address] [place] [address] Encounter 3WRoom: System [id number]: Repository [id number] 05/11/2018/05/14/20 [id number] Jered, Inpatient [place] Encounter [facility] ding:[id number] Repository : [id number]: 1 05/11/2018 [id number] Jered, Ambulatory BMSBuilding: [place] [facility] BMS.[facility] Repository 05/11/2018 [id number] Jered, Ambulatory BMSBuilding: [place] [facility] BMS.[facility] Repository 05/11/2018 [id number] Jered, Ambulatory BMSBuilding: [place] [facility] BMS.[facility] Repository 05/11/2018 [id number] Jered, Ambulatory BMSBuilding: [place] [facility] BMS.[facility] Repository 05/11/2018/05/14/20 [id number] Ambulatory BMSBuilding: [place] [address] [place] [address] Repository 05/11/2018 [id number] Ambulatory BMSBuilding: [facility] Repository 09/16/2017/09/18/19 [id number] Ambulatory [address] Repository PAYERS PAYERS ENCOUNTER GUARANTOR PAYER SUBSCRIBER SOURCE 06/14/2018 KAVON Field [place] [address] [address] Insurance:SELF PAY [facility] [place] INSURANCEPolicy Repository [address] Number: Effective 19810Cyt: (330) Date:2018-06-14 [phone] () 05/21/2018 KAVON Hall [facility] [id number] E Insurance:MEDICARE BOREMANDOB: [facility] [place] PART A BPolicy [id number] Repository [address] Number: [address]Dmd: 330 [id number] [phone] (HP) Date:2018-05-21 05/21/2018 Secondary NOT GIVENUNK [place] [facility] Insurance:SELF PAY Hospital INSURANCEPolicy Repository Number: Effective Date:2018-05-21 05/21/2018 KAVON Field [facility] [id number] E Insurance:MEDICARE BOREMANDOB: [facility] [place] PART A BPolicy [id number] Repository [address] Number: [address]Ltp: 330 [id number] [phone] () Date:2018-05-21 05/21/2018 Secondary NOT GIVENUNK [place] [facility] Insurance:SELF PAY Hospital INSURANCEPolicy Repository Number: Effective Date:2018-05-21 05/21/2018 KAVON Field [facility] [id number] E Insurance:MEDICARE BOREMANDOB: [facility] [place] PART A BPolicy [id number] Repository [address] Number: [address]Aqf: 330 [id number] [phone] () Date:2018-05-21 05/21/2018 Secondary NOT GIVENUNK [place] [facility] Insurance:SELF PAY Hospital INSURANCEPolicy Repository Number: Effective Date:2018-05-21 05/21/2018 KAVON Field [facility] [id number] E Insurance:MEDICARE BOREMANDOB: [facility] [place] PART A BPolicy [id number] Repository [address] Number: [id number]: 330 [id number] [phone] () Date:2018-05-21 05/21/2018 Secondary NOT GIVENUNK [place] [facility] Insurance:SELF PAY Hospital INSURANCEPolicy Repository Number: Effective Date:2018-05-21 05/21/2018 KAVON JACOBSON [facility] [id number] E Insurance:MEDICARE BOREMANDOB: [facility] [place] PART A BPolicy [id number] Repository [address] Number: [id number]: 330 [id number] [phone] (HP) Date:2018-05-21 05/21/2018 [facility] INSURANCEPolicy Repository Number: Effective Date:2018-05-21 05/21/2018 KAVON Field Primary KAVON Field [facility] [id number] E Insurance:MEDICARE BOREMANDOB: [facility] [place] PART A BPolicy [id number] Repository [address] Number: [address]Dvb: 330 [id number] [phone] (HP) Date:2018-05-21 05/21/2018 Secondary NOT GIVENUNK [facility] Insurance:SELF PAY Hospital INSURANCEPolicy Repository Number: Effective Date:2018-05-21 05/21/2018 KAVON Field Primary KAVON Field [facility] [id number] E Insurance:MEDICARE BOREMANDOB: [facility] [place] PART A BPolicy [id number] Repository [address] Number: [id number]: 330 [id number] [phone] (HP) Date:2018-05-21 05/21/2018 Secondary NOT GIVENUNK [facility] Insurance:SELF PAY Hospital INSURANCEPolicy Repository Number: Effective Date:2018-05-21 05/14/2018 KAVON JACOBSON [facility] BOREMANDOB: Insurance:MEDICARE BOREMANDOB: System Repository E PART APolicy Number: [id number] [facility] [id number] E [facility] [address] [place] Date:2005-10-22 [address], [place] [address]Pcn: [phone]: [phone] (HP) 05/14/2018 Kavon Jacobson [facility] BoremanDOB: Insurance:MedicarePol BoremanDOB: System Repository E icy Number: Effective [id number] [facility] [address] Date: [address], [place] [address]Kmg: (HP) 05/14/2018 Secondary Kavon [facility] Insurance:MedicarePol BoremanDOB: System Repository icy Number: Effective [id number] Date: 05/11/2018 KAVON Field Primary [facility] Insurance:MEDICARE BOREMANDOB: [facility] [place] PART A BPolicy [id number] Repository [address] Number: [address]Mnm: 330 [id number] [phone] (HP) Date:2018-05-11 05/11/2018 Secondary NOT GIVENUNK [place] [facility] Insurance:SELF PAY Hospital INSURANCEPolicy Repository Number: Effective Date:2018-05-11 05/11/2018 KAVON Field Primary KAVON Field [facility]208 E Insurance:MEDICARE BOREMANDOB: [facility] [place] PART A BPolicy [id number] Repository [address] Number: [address]Oqb: 330 [id number] [phone] () Date:2018-05-11 05/11/2018 Secondary NOT GIVENUNK [place] [facility] Insurance:SELF PAY Hospital INSURANCEPolicy Repository Number: Effective Date:2018-05-11 05/11/2018 KAVON Field Primary KAVON Field [facility]208 E Insurance:MEDICARE BOREMANDOB: [facility] [place] PART A BPolicy [id number] Repository [address] Number: [id number]: 330 [id number] [phone] () Date:2018-05-11 05/11/2018 Secondary NOT GIVENUNK [place] [facility] Insurance:SELF PAY Hospital INSURANCEPolicy Repository Number: Effective Date:2018-05-11 05/11/2018 KAVON Field [facility]208 E Insurance:MEDICARE BOREMANDOB: [facility] [place] PART A BPolicy [id number] Repository [address] Number: [address]Ypz: 330 [id number] [phone] (HP) Date:2018-05-11 05/11/2018 Secondary NOT GIVENUNK [place] [facility] Insurance:SELF PAY Hospital INSURANCEPolicy Repository Number: Effective Date:2018-05-11 05/11/2018 KAVON Field Primary KAVON Field [facility] [id number] E Insurance:MEDICARE BOREMANDOB: [facility] [place] PART A BPolicy [id number] Repository [address] Number: [id number]: 330 [id number] [phone] () Date:2018-05-11 05/11/2018 Secondary NOT GIVENUNK [place] [facility] Insurance:SELF PAY Hospital INSURANCEPolicy Repository Number: Effective Date:2018-05-11 05/11/2018 KAVON Field Primary KAVON Field [facility] [id number] E Insurance:MEDICARE BOREMANDOB: [facility] [place] PART A BPolicy [id number] Repository [address] Number: [id number]: 330 [id number] [phone] () Date:2018-05-11 05/11/2018 Secondary NOT GIVENUNK [place] [facility] Insurance:SELF PAY Hospital INSURANCEPolicy Repository Number: Effective Date:2018-05-11 05/11/2018 KAVON Field Primary KAVON Field [facility] [id number] E Insurance:MEDICARE BOREMANDOB: [facility] [place] PART A BPolicy [id number] Repository [address] Number: [id number]: 330 [id number] [phone] () Date:2018-05-11 05/11/2018 Secondary NOT GIVENUNK [place] [facility] Insurance:SELF PAY Hospital INSURANCEPolicy Repository Number: Effective Date:2018-05-11
== END 2018-05-14 13:34 | disposition short-term general hospital (02) | DRG 956 ==
LOC: ED 11:54 → MS2 13:31 → ICU 22:37 → MS3 05-12 16:17
PROVIDERS: Specialist; Student in an Organized Health Care Education/Training Program; Admitting Provider Internal Medicine; Emergency Provider Emergency Medicine; Family Provider Family Medicine; PCP Family Medicine; Visit Provider Internal Medicine
PROC: 0QS636Z Reposition Right Upper Femur with Intramedullary Internal Fixation Device, Percutaneous Approach (ICD-10-PCS; CPT 27245; principal; 2018-05-12 12:30)
DX: S24.103A Unspecified injury at T7-T10 level of thoracic spinal cord, initial encounter (principal); S72.141A Displaced intertrochanteric fracture of right femur, initial encounter for closed fracture; I67.83 Posterior reversible encephalopathy syndrome; M62.82 Rhabdomyolysis; S24.153A Other incomplete lesion at T7-T10 level of thoracic spinal cord, initial encounter; S22.069A Unspecified fracture of T7-T8 vertebra, initial encounter for closed fracture; W18.30XA Fall on same level, unspecified, initial encounter; Y93.01 Activity, walking, marching and hiking; G89.29 Other chronic pain; L40.9 Psoriasis, unspecified; F17.290 Nicotine dependence, other tobacco product, uncomplicated; R56.9 Unspecified convulsions; D69.6 Thrombocytopenia, unspecified; E86.0 Dehydration; I10 Essential (primary) hypertension; M16.11 Unilateral primary osteoarthritis, right hip; E83.51 Hypocalcemia; M54.30 Sciatica, unspecified side; M45.7 Ankylosing spondylitis of lumbosacral region; E87.6 Hypokalemia
CPT/HCPCS: 36415; 36600; 70450; 70551; 71045; 72072; 72100; 72156; 72157; 72158; 73501; 73502; 74019; 76000; 80048; 80053; 80307; 81001; 82550; 82803; 82962; 83605; 83735; 84484; 85025; 86900; 86965; 87040; 93005; 93306; 94640; 95819; 97162; 97165; 99251; 99284; 99406; A9585; C1713; J7030; J7040; J7050; P9035; A4216; G0463; J0610; J2405

== ENCOUNTER 2018-05-21 12:00 | Inpatient (IN) | payer MEDICARE, SELFPAY ==
[2018-05-21 12:04] VITALS: BMI 27.4
[2018-05-21 12:26] VITALS: BP 129/68; PULSE 96; RESP 18; TEMP 36.6; O2SAT 98; BMI 30.8
[2018-05-21 15:18] VITALS: O2SAT 95
[2018-05-21] MEDS: oxyCODONE 5 MG Tablet PO (18:06)
--- NOTE | 2018-05-21 18:06 | PN_ITS ---
Subjective: Patient seen and examined today in the rehab unit at [facility], he was admitted today after undergoing thoracic spinal fusion due to compression fractures and hematoma in the epidural area of the thoracic spine. Patient had insertion of a right hip cephalic medullary nail after sustaining a hip fracture from a fall on 05/11/18. Patient had insertion of a right hip cephalo- medullary nail on 05/12/18. Prior to this surgery on 05/12/18, patient had a witnessed seizure in the hospital and was on Keppra briefly and was seen b y neurology. On 05/14/18, patient had acute sensory loss in his legs along with bilateral lower extremity weakness. Workup at that time showed an acute T8 fracture with dorsal epidural hematoma from T4-T10 level. Patient was transferred to a tertiary center for surgical treatment and underwent a fusion from T4-T10. Currently patient has no movement in his lower extremities and has some feeling to light touch in the lower extremities. Other medical problems include a past history of alcoholism, history of ankylosing spondylitis, chronic back pain, and a history of psoriasis. Patient is now currently on blood pressure medications also and has a Louise catheter. - Physical Exam General: Alert, Oriented x3, Cooperative, No apparent distress, Well developed HEENT: Atraumatic, PERRLA, EOMI, Normocephalic Oral: Moist Mucosa Neck: Supple, No JVD, Negative Carotid Bruits, No Nuchal Rigidity, Trachea Midline, Thyroid Normal Size and Texture Lungs: Clear to auscultation, Normal air movement, No rhonchi, No wheeze, No rales Cardiovascular: Regular rate, Regular Rhythm, Normal S1, Normal S2, No murmurs, No Ectopic Activity, PMI Normal, No rub noted, No Gallop Abdomen: Bowel Sounds Present, Soft, Non Tender, Non-Distended, No hernias noted Extremities: No clubbing, No cyanosis, Capillary Refill Less than 3 Seconds, - - Generalized dry skin changes are noted of the lower extremities Skin: No rashes, No breakdown Neurological: Cranial nerves II-XII grossly intact, Neuro grossly intact, - - Patient is paraplegic, he has some sensation to light touch in the lower extremities mostly on the left Psych/Mental Status: Normal Affect, Appropriate, Alert and oriented to time, place, person, mood and affect Vital Signs Temp Pulse Resp BP Pulse Ox 97.8 F 96 18 129/68 H 95 05/21/18 12:26 05/21/18 12:26 05/21/18 12:26 05/21/18 12:26 05/21/18 15:18 Oxygen Delivery Method Room Air Weight: 81.5 kg Body Mass Index (BMI) 30.8 Medical Necessity - Tobacco Use Smoking Status: Current every day smoker Assessment/Plan All Active Problems Fall (Resolved) Rhabdomyolysis (Resolved) #1 hypertension-patient will remain on his current medication Zestoretic #2 paraplegia secondary to epidural hematoma and multiple compression fractures of the thoracic spine-PT and OT are seeing the patient, neurology will be seeing the patient #3 past history of seizure-patient's last EEG during his hospitalization here in April did not show any epileptiform focus, he is currently not on seizure medications, I will leave it up to neurology to decide whether the patient should be on antiepileptic drugs #4 past history of alcoholism #5 history of psoriasis #6 probable urinary retention-I started the patient on Flomax, I am unsure whether the patient is able to void due to his spinal injury, it may be prudent to try a voiding trial later this coming week, however, patient may not be able to void and he may need his Louise in for a prolonged period of time. 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 Code Visit Inpatient E&M: 76530 Subs Hosp L2
--- NOTE | 2018-05-21 18:52 | NURSING ---
Patient aware he is a fall risk and must ask for staff assistance and verbalized understanding to call hull use. Patient refusing any oral supplements that this nurse offered due to c/o that he is big enough already.
[2018-05-21] MEDS: Tamsulosin HCl 0.4 MG Capsule PO (19:42)
[2018-05-21 19:44] VITALS: BP 129/75; PULSE 92; RESP 20; TEMP 36.6; O2SAT 96
[2018-05-21] MEDS: guaiFENesin 600 MG Tablet PO (21:16)
[2018-05-21] MEDS: Menthol/Lanolin/Calamine/Znox 113 GM Tube 1 APPLIC TOPICAL (21:17)
[2018-05-22] MEDS: oxyCODONE 5 MG Tablet PO ×4 (00:25→22:20)
[2018-05-22] MEDS: Menthol/Lanolin/Calamine/Znox 113 GM Tube 1 APPLIC TOPICAL ×3 (06:00→21:01)
[2018-05-22 06:17] LABS: Hematocrit 28.6 % (40-54); Hemoglobin 8.7 g/dl (13.0-16.5); Mean Corp Hgb Conc 30.4 g/gl (32-36); Mean Corpuscular Hgb 30.6 pg (27.0-32.0); Mean Corpuscular Volume 100.7 fL (80-94); Mean Platelet Vol. 10.5 fl (6.2-12.0); Platelet Count 199 K/mm3 (150-450); RBC Distribution Width CV 16.1 % (11.6-14.6); RBC Distribution Width SD 53.5 fl (35.1-43.9); Red Blood Count 2.84 M/mm3 (4.6-6.2)
[2018-05-22 06:18] LABS: Scan Indicated on CBC? Y/N NO
[2018-05-22 06:27] LABS: Anion Gap 6 (5-15); BUN 19 mg/dL (7-18); BUN/Creat Ratio 26.8 RATIO (10-20); Calcium,Total 7.6 mg/dL (8.5-10.1); Chloride 104 mmol/L (98-107); Creatinine, Serum 0.71 mg/dL (0.70-1.30); EST Glomerular Filtration Rate 120 mL/min (>60); Est Glom Filt Rate - Afr Amer 145 mL/min (>60); Estimated Creatinine Clearance 91.49 ml/min; Glucose 103 mg/dL (74-106); Potassium 4.2 mmol/L (3.5-5.1); Sodium Level 138 mmol/L (136-145)
[2018-05-22] MEDS: Enoxaparin 40 MG/0.4 ML Syringe SC (06:48)
[2018-05-22 07:00] VITALS: BP 103/55; PULSE 99; RESP 18; TEMP 36.7; O2SAT 94
[2018-05-22] MEDS: guaiFENesin 600 MG Tablet PO ×2 (08:21→21:00)
[2018-05-22] MEDS: Gabapentin 100 MG Capsule PO ×3 (08:21→16:54)
[2018-05-22] MEDS: Multivitamins,Therapeutic Tablet 1 TABLET PO (08:21)
[2018-05-22] MEDS: hydroCHLOROthiazide 25 MG Tablet PO (08:21)
[2018-05-22] MEDS: Pantoprazole Sodium 20 MG Tablet PO (08:21)
[2018-05-22] MEDS: Lisinopril 20 MG Tablet PO (08:22)
--- NOTE | 2018-05-22 13:11 | PCM.HP.STD ---
History of Present Illness Date of Admission: 05/21/18 Chief Complaint: DEBILITY The patient is a 62 year old M with a history of ankylosing spondylitis and a long history of chronic back pain in his mid back, he suffered a mechanical fall on 05/10/2018, requiring ORIF of his right hip on 05/12/18. Subsequently on 05/14/18 he was diagnosed with an epidural hematoma at T8, was transported to [facility] and underwent evacuation by orthospine on 05/15/18. He says his main complaint now is he continues to experience back pain which is similar but worse than his previous back pain. The pain however is not changed since his initial injury on 05/10. He also has weakness in his lower extremities and loss of sensation which has not improved as well as urinary retention and constipation. He is nonweightbearing. He says his arms are unaffected. He is frustrated by his condition and would like increase in his pain medications. We also discussed repeating CT of his thoracic spine to evaluate for recurrence of his hematoma which he agrees to.. 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) Allergies Unable to Assess Allergy (Verified 05/11/18 10:59) Home Medications: Ambulatory Orders Medication Instructions Recorded Omeprazole 20 mg PO DAILY 05/11/18 Ergocalciferol [Vitamin D] 50,000 unit PO Q7D 05/21/18 Gabapentin [Neurontin] 1 cap PO TID 05/21/18 Guaifenesin [Mucinex] 600 mg PO BID 05/21/18 Lisinopril/Hydrochlorothiazide 1 tablet PO DAILY 05/21/18 [Zestoretic 20/25 Tablet] Multivitamins,Therapeutic 1 tablet PO DAILY 05/21/18 [Multivitamin] Oxycodone [Oxyir] 5 mg PO Q6H PRN PRN 05/21/18 Smoking Status: Current every day smoker - *Family History Maternal History Items: No pertinent history VTE Information - Inpt Only VTE Present on Admission: Yes VTE Mechan Device Prophylaxis: SCD's - Physical Exam General: Alert, Oriented x3, Cooperative, No apparent distress HEENT: Atraumatic, PERRLA, EOMI Neck: Supple Lungs: Clear to auscultation Cardiovascular: Regular rate Abdomen: Bowel Sounds Present, Soft, Non Tender Neurological: - - 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 Vital Signs Temp Pulse Resp BP Pulse Ox 36.7 C 99 18 103/55 L 94 05/22/18 07:00 05/22/18 07:00 05/22/18 07:00 05/22/18 07:00 05/22/18 07:00 Oxygen Delivery Method Room Air Weight: 75.6 kg Body Mass Index (BMI) 30.8 Intake and Output for Last 24 Hours 05/20/18 05/21/18 05/22/18 23:59 23:59 23:59 Intake Total 720 / 720 340 / 340 Output Total 800 / 800 1100 / 1100 Balance -80 / -80 -760 / -760 Laboratory Tests Past 24 Hrs 05/22/18 05/22/18 05:40 05:40 WBC 10.0 RBC 2.84 L Hgb 8.7 L Hct 28.6 L MCV 100.7 H MCH 30.6 MCHC 30.4 L RDW 16.1 H RDW Differential 53.5 H Plt Count 199 MPV 10.5 Sodium 138 Potassium 4.2 Chloride 104 Carbon Dioxide 28.0 Anion Gap 6 BUN 19 H Creatinine 0.71 Estim Creat Clear Calc 91.49 Est GFR (MDRD) Af Amer 145 Est GFR (MDRD) Non-Af 120 BUN/Creatinine Ratio 26.8 H Glucose 103 Calcium 7.6 L Current Home Med List Medication Instructions Recorded Confirmed Type Omeprazole 20 mg PO DAILY 05/11/18 05/21/18 History Ergocalciferol [Vitamin D] 50,000 unit PO Q7D 05/21/18 05/21/18 History Gabapentin [Neurontin] 1 cap PO TID 05/21/18 05/21/18 History Guaifenesin [Mucinex] 600 mg PO BID 05/21/18 05/21/18 History Lisinopril/Hydrochlorothiazide 1 tablet PO DAILY 05/21/18 05/21/18 History [Zestoretic 20/25 Tablet] Multivitamins,Therapeutic 1 tablet PO DAILY 05/21/18 05/21/18 History [Multivitamin] Oxycodone [Oxyir] 5 mg PO Q6H PRN PRN 05/21/18 05/21/18 History Current Medications Generic Name Dose Route Start Last Admin Trade Name Lexi PRN Reason Stop Dose Admin Bisacodyl 10 mg 05/21/18 14:57 Dulcolax RECTAL .PRN X 1 PRN Constipation Calamine/Phenol 1 applic 05/21/18 22:00 05/22/18 06:00 Calmoseptine Ointment TOPICAL 1 applicatio TID [facility] Administration Protocol Emollient Ointment 1 applic 05/21/18 22:00 05/22/18 06:00 Eucerin Intensive Repair TOPICAL 1 applicatio BID@2200,0600 [facility] Administration Protocol Enoxaparin Sodium 40 mg 05/22/18 06:00 05/22/18 06:48 Lovenox SC 40 mg DAILY@0600 [facility] Administration Ergocalciferol 50,000 unit 05/22/18 10:00 05/22/18 08:22 Vitamin D PO 50,000 unit Q7D [facility] Administration Gabapentin 100 mg 05/22/18 08:00 05/22/18 13:01 Neurontin PO 100 mg TIDCM [facility] Administration Guaifenesin 600 mg 05/21/18 22:00 05/22/18 08:21 Mucinex PO 600 mg BID [facility] Administration Hydrochlorothiazide 25 mg 05/22/18 10:00 05/22/18 08:21 Hctz PO 25 mg DAILY [facility] Administration Lisinopril 20 mg 05/22/18 10:00 05/22/18 08:22 Zestril PO 20 mg DAILY [facility] Administration Magnesium Hydroxide 30 ml 05/21/18 14:57 Milk Of Magnesia PO .PRN X 1 PRN Constipation Multivitamins 1 tablet 05/22/18 08:00 05/22/18 08:21 Multivitamin PO 1 tablet DAILYCM [facility] Administration Oxycodone HCl 5 mg 05/21/18 14:56 05/22/18 13:01 Oxyir PO 5 mg Q6H PRN PRN Administration PAIN Pantoprazole Sodium 20 mg 05/22/18 10:00 05/22/18 08:21 Protonix PO 20 mg DAILY [facility] Administration Senna/Docusate Sodium 2 tablet 05/21/18 22:00 05/22/18 08:31 Senokot-S, Marcie-Colace PO Not Given BID [facility] Tamsulosin HCl 0.4 mg 05/21/18 17:30 05/21/18 19:42 Flomax PO 0.4 mg DAILY@1730 [facility] Administration Assessment/Plan All Active Problems Fall (Resolved) Rhabdomyolysis (Resolved) Debility status post fall resulting in right hip fracture status post ORIF 05/12/18 and consequent epidural hematoma in his thoracic spine status post evacuation laminectomy 05/15/18. This is all complicated by a history of ankylosing spondylitis, chronic back pain and alcohol use. Goal of rehab is sikhism of previous level of functional independence. Plan: Physical therapy for transfers, he is nonweightbearing. Occupational Therapy for ADLs PRN analgesics Bowel protocol DVT prophylaxis: Transfer orders recommended Lovenox however given his thoracic hematoma and ongoing back pain we will limit his DVT prophylaxis to SCDs. Encourage alcohol abstention Continue antihypertensives Proton pump inhibitor Urinary retention: Louise catheter for now. Constipation: Bowel protocol Back pain: Repeat CT of his thoracic spine to increase fentanyl patch
--- NOTE | 2018-05-22 13:14 | HP.PCM_ITS ---
History of Present Illness Date of Admission: 05/21/18 Chief Complaint: DEBILITY The patient is a 62 year old M with a history of ankylosing spondylitis and a long history of chronic back pain in his mid back, he suffered a mechanical fall on 05/10/2018, requiring ORIF of his right hip on 05/12/18. Subsequently on 05/14/18 he was diagnosed with an epidural hematoma at T8, was transported to [facility] and underwent evacuation by orthospine on 05/15/18. He says his main complaint now is he continues to experience back pain which is similar but worse than his previous back pain. The pain however is not changed since his initial injury on 05/10. He also has weakness in his lower extremities and loss of sensation which has not improved as well as urinary retention and constipation. He is nonweightbearing. He says his arms are unaffected. He is frustrated by his condition and would like increase in his pain medications. We also discussed repeating CT of his thoracic spine to evaluate for recurrence of his hematoma which he agrees to.. 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) Allergies Unable to Assess Allergy (Verified 05/11/18 10:59) Home Medications: Ambulatory Orders Medication Instructions Recorded Omeprazole 20 mg PO DAILY 05/11/18 Ergocalciferol [Vitamin D] 50,000 unit PO Q7D 05/21/18 Gabapentin [Neurontin] 1 cap PO TID 05/21/18 Guaifenesin [Mucinex] 600 mg PO BID 05/21/18 Lisinopril/Hydrochlorothiazide 1 tablet PO DAILY 05/21/18 [Zestoretic 20/25 Tablet] Multivitamins,Therapeutic 1 tablet PO DAILY 05/21/18 [Multivitamin] Oxycodone [Oxyir] 5 mg PO Q6H PRN PRN 05/21/18 Smoking Status: Current every day smoker - *Family History Maternal History Items: No pertinent history VTE Information - Inpt Only VTE Present on Admission: Yes VTE Mechan Device Prophylaxis: SCD's - Physical Exam General: Alert, Oriented x3, Cooperative, No apparent distress HEENT: Atraumatic, PERRLA, EOMI Neck: Supple Lungs: Clear to auscultation Cardiovascular: Regular rate Abdomen: Bowel Sounds Present, Soft, Non Tender Neurological: - - 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 Vital Signs Temp Pulse Resp BP Pulse Ox 36.7 C 99 18 103/55 L 94 05/22/18 07:00 05/22/18 07:00 05/22/18 07:00 05/22/18 07:00 05/22/18 07:00 Oxygen Delivery Method Room Air Weight: 75.6 kg Body Mass Index (BMI) 30.8 Intake and Output for Last 24 Hours 05/20/18 05/21/18 05/22/18 23:59 23:59 23:59 Intake Total 720 / 720 340 / 340 Output Total 800 / 800 1100 / 1100 Balance -80 / -80 -760 / -760 Laboratory Tests Past 24 Hrs 05/22/18 05/22/18 05:40 05:40 WBC 10.0 RBC 2.84 L Hgb 8.7 L Hct 28.6 L MCV 100.7 H MCH 30.6 MCHC 30.4 L RDW 16.1 H RDW Differential 53.5 H Plt Count 199 MPV 10.5 Sodium 138 Potassium 4.2 Chloride 104 Carbon Dioxide 28.0 Anion Gap 6 BUN 19 H Creatinine 0.71 Estim Creat Clear Calc 91.49 Est GFR (MDRD) Af Amer 145 Est GFR (MDRD) Non-Af 120 BUN/Creatinine Ratio 26.8 H Glucose 103 Calcium 7.6 L Current Home Med List Medication Instructions Recorded Confirmed Type Omeprazole 20 mg PO DAILY 05/11/18 05/21/18 History Ergocalciferol [Vitamin D] 50,000 unit PO Q7D 05/21/18 05/21/18 History Gabapentin [Neurontin] 1 cap PO TID 05/21/18 05/21/18 History Guaifenesin [Mucinex] 600 mg PO BID 05/21/18 05/21/18 History Lisinopril/Hydrochlorothiazide 1 tablet PO DAILY 05/21/18 05/21/18 History [Zestoretic 20/25 Tablet] Multivitamins,Therapeutic 1 tablet PO DAILY 05/21/18 05/21/18 History [Multivitamin] Oxycodone [Oxyir] 5 mg PO Q6H PRN PRN 05/21/18 05/21/18 History Current Medications Generic Name Dose Route Start Last Admin Trade Name Lexi PRN Reason Stop Dose Admin Bisacodyl 10 mg 05/21/18 14:57 Dulcolax RECTAL .PRN X 1 PRN Constipation Calamine/Phenol 1 applic 05/21/18 22:00 05/22/18 06:00 Calmoseptine Ointment TOPICAL 1 applicatio TID [facility] Administration Protocol Emollient Ointment 1 applic 05/21/18 22:00 05/22/18 06:00 Eucerin Intensive Repair TOPICAL 1 applicatio BID@2200,0600 [facility] Administration Protocol Enoxaparin Sodium 40 mg 05/22/18 06:00 05/22/18 06:48 Lovenox SC 40 mg DAILY@0600 [facility] Administration Ergocalciferol 50,000 unit 05/22/18 10:00 05/22/18 08:22 Vitamin D PO 50,000 unit Q7D [facility] Administration Gabapentin 100 mg 05/22/18 08:00 05/22/18 13:01 Neurontin PO 100 mg TIDCM [facility] Administration Guaifenesin 600 mg 05/21/18 22:00 05/22/18 08:21 Mucinex PO 600 mg BID [facility] Administration Hydrochlorothiazide 25 mg 05/22/18 10:00 05/22/18 08:21 Hctz PO 25 mg DAILY [facility] Administration Lisinopril 20 mg 05/22/18 10:00 05/22/18 08:22 Zestril PO 20 mg DAILY [facility] Administration Magnesium Hydroxide 30 ml 05/21/18 14:57 Milk Of Magnesia PO .PRN X 1 PRN Constipation Multivitamins 1 tablet 05/22/18 08:00 05/22/18 08:21 Multivitamin PO 1 tablet DAILYCM [facility] Administration Oxycodone HCl 5 mg 05/21/18 14:56 05/22/18 13:01 Oxyir PO 5 mg Q6H PRN PRN Administration PAIN Pantoprazole Sodium 20 mg 05/22/18 10:00 05/22/18 08:21 Protonix PO 20 mg DAILY [facility] Administration Senna/Docusate Sodium 2 tablet 05/21/18 22:00 05/22/18 08:31 Senokot-S, Marcie-Colace PO Not Given BID [facility] Tamsulosin HCl 0.4 mg 05/21/18 17:30 05/21/18 19:42 Flomax PO 0.4 mg DAILY@1730 [facility] Administration Assessment/Plan All Active Problems Fall (Resolved) Rhabdomyolysis (Resolved) Debility status post fall resulting in right hip fracture status post ORIF 05/12/18 and consequent epidural hematoma in his thoracic spine status post evacuation laminectomy 05/15/18. This is all complicated by a history of ankylosing spondylitis, chronic back pain and alcohol use. Goal of rehab is faith of previous level of functional independence. Plan: Physical therapy for transfers, he is nonweightbearing. Occupational Therapy for ADLs PRN analgesics Bowel protocol DVT prophylaxis: Transfer orders recommended Lovenox however given his thoracic hematoma and ongoing back pain we will limit his DVT prophylaxis to SCDs. Encourage alcohol abstention Continue antihypertensives Proton pump inhibitor Urinary retention: Louise catheter for now. Constipation: Bowel protocol Back pain: Repeat CT of his thoracic spine to increase fentanyl patch
[2018-05-22 13:25] VITALS: O2SAT 94
--- NOTE | 2018-05-22 13:41 | CT_ITS ---
STUDY: CT THORACIC SPINE WITHOUT CONTRAST REASON FOR EXAM: Male, 62 years old. Paraplegia RADIATION DOSAGE (If Supplied By Facility): CTDIvol = ( 22.26 ) mGy, DLP = ( 1392.91 ) mGycm TECHNIQUE: The patient was scanned in a multi detector CT scanner. High resolution imaging was performed. Images were obtained from to . Sagittal and coronal images were reconstructed. Individualized dose optimization techniques were used for this CT. COMPARISON: None. FINDINGS: There are syndesmophytes in the thoracic spine. Rheumatoid arthritis suspected. There is a fracture involving the posterior aspect of the body of T8 with a mild spondylolisthesis of T7 over T8. Plates and transpedicular screws through T5, T6, T7, T9, T10 and T11. The hardware is in good position. There is also deroofing extending from T5 through T10. CT/Spine Thoracic without Contras IMPRESSION: The presence of syndesmophytes. Rheumatoid arthritis suspected. The fracture of T8 vertebral body. Plates and transpedicular screws extending from T5 through T11. There is deroofing from T5 to T10. Electronically Signed: Soto Tavarez MD at 3:10 EST Tel , Service support ,
[2018-05-22] MEDS: fentaNYL 25 MCG Patch TRANSDERM. (16:54)
[2018-05-22] MEDS: Tamsulosin HCl 0.4 MG Capsule PO (16:54)
[2018-05-22 19:35] VITALS: BP 104/49; PULSE 103; RESP 20; TEMP 36.6; O2SAT 99
--- NOTE | 2018-05-22 21:46 | NURSING ---
THORACIC SPINE CT REPORT NOT AVAILABLE YET.
[2018-05-23] MEDS: oxyCODONE 5 MG Tablet PO ×3 (06:12→20:07)
[2018-05-23 06:42] VITALS: O2SAT 97
[2018-05-23 09:04] VITALS: BP 110/57; PULSE 92; RESP 16; TEMP 36.8; O2SAT 97
[2018-05-23] MEDS: Gabapentin 100 MG Capsule PO ×3 (09:08→17:17)
[2018-05-23] MEDS: Pantoprazole Sodium 20 MG Tablet PO (09:08)
[2018-05-23] MEDS: guaiFENesin 600 MG Tablet PO ×2 (09:08→20:09)
[2018-05-23] MEDS: Multivitamins,Therapeutic Tablet 1 TABLET PO (09:08)
[2018-05-23 10:00] VITALS: PULSE 100
[2018-05-23 11:09] VITALS: BP 92/54; PULSE 100
[2018-05-23] MEDS: Menthol/Lanolin/Calamine/Znox 113 GM Tube 1 APPLIC TOPICAL ×2 (13:49→20:57)
--- NOTE | 2018-05-23 15:48 | CHAPLAIN ---
Type of Pastoral Visit _x__ Initial Visit ___ Follow-up Visit ___ On-call Visit ___ General Patient Visit ___ Spiritual Assessment ___ Family Conference ___ Bereavement ___ Rapid Response ___ Code Blue ___ Other (describe below) Pastoral Care Referral From _x__ Patient ___ Family _x__ Nurse ___ Physician ___ Supervisor Irrigation ___ Lymphedema Therapist ___ Other (describe below) Sacrament/Intervention _x__ Active listening ___ Anointing ___ Confucianism ___ Bereavement ___ Communion _x__ Loraine exploration ___ _x__ Life review _x__ Prayer ___ Reconciliation ___ Sacrament of Sick _x__ Supportive presence ___ Wedding ___ Other (describe below) Pastoral Comments patient asked about donating his body to science; pt gave some life history; pt claims that he is depressed but he does not show evidence of any suicidal thoughts, and is rather animated and talkative about life; pt claims a strong sense of loraine and a deep belief in his own future in heaven; pt asks about recommendations for getting his Will done; referred pt to SW who could answer more of these questions; pt is and appears to have little support from family and friends; pt asks this client experience specialist to come and visit with him again;
--- NOTE | 2018-05-23 16:46 | PCM.PN.NEU ---
Subjective: Patient seen and examined. He continues to have weakness in his lower extremities and loss of sensation, which has not improved. Louise remains in place for urinary retention. He's tolerating a regular diet. He is non-weight bearing 2/2 lower extremity paralysis. - Physical Exam General: Alert, Oriented x3, Cooperative HEENT: Atraumatic, PERRLA, EOMI, Normocephalic Neck: Supple, No JVD, Negative Carotid Bruits Lungs: Clear to auscultation, Normal air movement Cardiovascular: Regular rate, No murmurs Abdomen: Bowel Sounds Present, Soft, Non Tender Extremities: No edema, Capillary Refill Less than 3 Seconds Skin: No rashes, No breakdown Musculoskeletal: No Tenderness to Palpation of Joints or Extremities Neurological: Cranial nerves II-XII grossly intact, - - 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 Psych/Mental Status: Normal Affect, Appropriate, Alert and oriented to time, place, person, mood and affect Vital Signs Temp Pulse Resp BP Pulse Ox 98.3 F 100 16 92/54 L 97 05/23/18 09:04 05/23/18 11:09 05/23/18 09:04 05/23/18 11:09 05/23/18 09:04 Oxygen Delivery Method Room Air Weight: 75.6 kg Body Mass Index (BMI) 30.8 Intake and Output for Last 24 Hours 05/21/18 05/22/18 05/23/18 23:59 23:59 23:59 Intake Total 720 / 720 1800 / 1800 1280 / 1280 Output Total 800 / 800 2550 / 2550 950 / 950 Balance -80 / -80 -750 / -750 330 / 330 Active Medications Bisacodyl (Dulcolax) 10 mg RECTAL .PRN X 1 PRN PRN Reason: Constipation Calamine/Phenol (Calmoseptine Ointment) 1 applic TOPICAL TID [facility]; Protocol Last Admin: 05/23/18 13:49 Dose: 1 applicatio Emollient Ointment (Eucerin Intensive Repair) 1 applic TOPICAL BID@2200,0600 [facility]; Protocol Last Admin: 05/23/18 06:13 Dose: 1 applicatio Ergocalciferol (Vitamin D) 50,000 unit PO Q7D [facility] Last Admin: 05/22/18 08:22 Dose: 50,000 unit Escitalopram Oxalate (Lexapro) 10 mg PO DAILY [facility] Fentanyl (Duragesic Patch) 25 mcg TRANSDERM. Q3D [facility] Last Admin: 05/22/18 16:54 Dose: 25 mcg Gabapentin (Neurontin) 100 mg PO TIDCM [facility] Last Admin: 05/23/18 13:09 Dose: 100 mg Guaifenesin (Mucinex) 600 mg PO BID [facility] Last Admin: 05/23/18 09:08 Dose: 600 mg Hydrochlorothiazide (Hctz) 25 mg PO DAILY [facility] Last Admin: 05/22/18 08:21 Dose: 25 mg Lisinopril (Zestril) 20 mg PO DAILY [facility] Last Admin: 05/23/18 13:46 Dose: Not Given Magnesium Hydroxide (Milk Of Magnesia) 30 ml PO .PRN X 1 PRN PRN Reason: Constipation [facility] ([facility]amin) [facility] Last Admin: 05/23/18 09:08 Dose: 1 tablet Oxycodone HCl (Oxyir) 5 mg PO Q6H PRN PRN PRN Reason: PAIN Last Admin: 05/23/18 13:48 Dose: 5 mg Pantoprazole Sodium (Protonix) 20 mg PO DAILY [facility] Last Admin: 05/23/18 09:08 Dose: 20 mg Senna/Docusate Sodium (Senokot-S, Marcie-Colace) 2 tablet PO BID [facility] Last Admin: 05/23/18 08:55 Dose: Not Given Tamsulosin HCl (Flomax) 0.4 mg PO DAILY@1730 [facility] Last Admin: 05/22/18 16:54 Dose: 0.4 mg Medical Necessity - Tobacco Use Smoking Status: Current every day smoker Assessment/Plan All Active Problems Fall (Resolved) Rhabdomyolysis (Resolved) Debility status post fall resulting in right hip fracture status post ORIF 05/12/18 and consequent epidural hematoma in his thoracic spine status post evacuation laminectomy 05/15/18. This is all complicated by a history of ankylosing spondylitis, chronic back pain and alcohol use. Goal of rehab is catholic of previous level of functional independence. Plan: Physical therapy for transfers, he is nonweightbearing. Occupational Therapy for ADLs PRN analgesics Bowel protocol DVT prophylaxis: Transfer orders recommended Lovenox however given his thoracic hematoma and ongoing back pain we will limit his DVT prophylaxis to SCDs. Encourage alcohol abstention Continue antihypertensives Proton pump inhibitor Urinary retention: Louise catheter for now. Constipation: Bowel protocol Back pain: Repeat CT of his thoracic spine to increase fentanyl patch
[2018-05-23] MEDS: hydroCHLOROthiazide 25 MG Tablet PO (17:16)
--- NOTE | 2018-05-23 17:20 | CASEMGMT ---
Supply Analyst met with pt in room to complete assessment. Machine Steak Tenderizer leaving room prior to SW entering. Pt tells SW that he is very depressed and that visit with quill cleaning machine operator was very helpful in lifting his spirits. Pt denies any feeling of suicidal ideation and states samaritan protective factor that God would not let me do that. Pt has had depression in the past and states he tried to cope using whiskey but realized that did not help. Pt also states he took an anti depressant for two weeks but stopped that as well. Pt does express feelings of depression at this time due to medical issues. Emotional support provided. Pt would like to complete advance directives. SW will continue to follow for emotional support and to assist with advance care planning. HASEEB Holt
[2018-05-23] MEDS: Escitalopram Oxalate 10 MG Tablet PO (17:23)
[2018-05-23] MEDS: Tamsulosin HCl 0.4 MG Capsule PO (17:42)
[2018-05-23 20:00] VITALS: BP 122/62; PULSE 107; RESP 20; TEMP 37.3; O2SAT 95
--- NOTE | 2018-05-24 02:58 | NURSING ---
Reviewed and agree with OFFICE SPECIALIST documentation and FIMs charting.
[2018-05-24] MEDS: Menthol/Lanolin/Calamine/Znox 113 GM Tube 1 APPLIC TOPICAL ×3 (06:28→22:19)
[2018-05-24] MEDS: oxyCODONE 5 MG Tablet PO ×3 (06:41→22:18)
[2018-05-24 07:00] VITALS: BP 119/66; PULSE 95; RESP 18; TEMP 36.9; O2SAT 93
[2018-05-24] MEDS: Escitalopram Oxalate 10 MG Tablet PO (07:59)
[2018-05-24] MEDS: guaiFENesin 600 MG Tablet PO ×2 (07:59→22:19)
[2018-05-24] MEDS: Lisinopril 20 MG Tablet PO (07:59)
[2018-05-24] MEDS: Pantoprazole Sodium 20 MG Tablet PO (07:59)
[2018-05-24] MEDS: Multivitamins,Therapeutic Tablet 1 TABLET PO (08:00)
[2018-05-24] MEDS: hydroCHLOROthiazide 25 MG Tablet PO (08:00)
[2018-05-24] MEDS: Gabapentin 100 MG Capsule PO ×3 (08:00→17:25)
[2018-05-24] MEDS: Tamsulosin HCl 0.4 MG Capsule PO (17:25)
[2018-05-24 22:00] VITALS: BP 96/50; PULSE 82; RESP 18; TEMP 36.9; O2SAT 97
--- NOTE | 2018-05-25 03:52 | NURSING ---
Reviewed and agree with CITY SOLICITOR documentation and FIMs charting.
[2018-05-25] MEDS: oxyCODONE 5 MG Tablet PO ×3 (06:06→23:11)
[2018-05-25] MEDS: Menthol/Lanolin/Calamine/Znox 113 GM Tube 1 APPLIC TOPICAL ×3 (06:57→23:06)
--- NOTE | 2018-05-25 07:29 | NURSING ---
alford d/c'd as per order and pt tolerated well, there was 450cc of dark donna urine in the catheter bag with sediment noted. pt meatus isn noted to be red and pierce-care was completed with soap and water. alford was removed at 0615
[2018-05-25] MEDS: Gabapentin 100 MG Capsule PO ×3 (07:38→16:45)
[2018-05-25] MEDS: Pantoprazole Sodium 20 MG Tablet PO (07:38)
[2018-05-25] MEDS: Multivitamins,Therapeutic Tablet 1 TABLET PO (07:38)
[2018-05-25] MEDS: Escitalopram Oxalate 10 MG Tablet PO (07:39)
[2018-05-25] MEDS: guaiFENesin 600 MG Tablet PO ×2 (07:40→23:06)
[2018-05-25 09:00] VITALS: BP 104/68; PULSE 85; RESP 18; TEMP 36.7; O2SAT 95
[2018-05-25 10:54] VITALS: BP 131/66
[2018-05-25] MEDS: hydroCHLOROthiazide 25 MG Tablet PO (11:00)
[2018-05-25] MEDS: Lisinopril 20 MG Tablet PO (11:00)
--- NOTE | 2018-05-25 11:00 | PN.NEURO_ITS ---
Subjective: Patient seen, no new complaints. Tolerating therapy. Louise remains in place putting out clear yellow urine, on Bowel regime. Tolerating regular diet. - Physical Exam General: Alert, Oriented x3, Cooperative HEENT: Atraumatic, PERRLA, EOMI, Normocephalic Neck: Supple, No JVD, Negative Carotid Bruits Lungs: Clear to auscultation, Normal air movement Cardiovascular: Regular rate, No murmurs Abdomen: Bowel Sounds Present, Soft, Non Tender Extremities: No edema, Capillary Refill Less than 3 Seconds Skin: No rashes, No breakdown Musculoskeletal: No Tenderness to Palpation of Joints or Extremities Neurological: Cranial nerves II-XII grossly intact Psych/Mental Status: Normal Affect, Appropriate, Alert and oriented to time, place, person, mood and affect Vital Signs Temp Pulse Resp BP Pulse Ox 98.0 F 85 18 131/66 H 95 05/25/18 09:00 05/25/18 09:00 05/25/18 09:00 05/25/18 10:54 05/25/18 09:00 Oxygen Delivery Method Room Air Weight: 75.6 kg Body Mass Index (BMI) 30.8 Intake and Output for Last 24 Hours 05/23/18 05/24/18 05/25/18 23:59 23:59 23:59 Intake Total 1760 / 1760 1060 / 1060 1730 / 1730 Output Total 1200 / 1200 1550 / 1550 950 / 950 Balance 560 / 560 -490 / -490 780 / 780 Active Medications Bisacodyl (Dulcolax) 10 mg RECTAL .PRN X 1 PRN PRN Reason: Constipation Calamine/Phenol (Calmoseptine Ointment) 1 applic TOPICAL TID [facility]; Protocol Last Admin: 05/25/18 06:57 Dose: 1 applicatio Emollient Ointment (Eucerin Intensive Repair) 1 applic TOPICAL BID@2200,0600 [facility]; Protocol Last Admin: 05/25/18 06:58 Dose: 1 applicatio Ergocalciferol (Vitamin D) 50,000 unit PO Q7D [facility] Last Admin: 05/22/18 08:22 Dose: 50,000 unit Escitalopram Oxalate (Lexapro) 10 mg PO DAILY [facility] Last Admin: 05/25/18 07:39 Dose: 10 mg Fentanyl (Duragesic Patch) 25 mcg TRANSDERM. Q3D [facility] Last Admin: 05/22/18 16:54 Dose: 25 mcg Gabapentin (Neurontin) 100 mg PO TIDCM [facility] Last Admin: 05/25/18 07:38 Dose: 100 mg Guaifenesin (Mucinex) 600 mg PO BID [facility] Last Admin: 05/25/18 07:40 Dose: 600 mg Hydrochlorothiazide (Hctz) 25 mg PO DAILY [facility] Last Admin: 05/24/18 08:00 Dose: 25 mg Lisinopril (Zestril) 20 mg PO DAILY [facility] Last Admin: 05/24/18 07:59 Dose: 20 mg Magnesium Hydroxide (Milk Of Magnesia) 30 ml PO .PRN X 1 PRN PRN Reason: Constipation Multivitamins (Multivitamin) 1 tablet PO DAILYCM [facility] Last Admin: 05/25/18 07:38 Dose: 1 tablet Oxycodone HCl (Oxyir) 5 mg PO Q6H PRN PRN PRN Reason: PAIN Last Admin: 05/25/18 06:06 Dose: 5 mg Pantoprazole Sodium (Protonix) 20 mg PO DAILY [facility] Last Admin: 05/25/18 07:38 Dose: 20 mg Senna/Docusate Sodium (Senokot-S, Marcie-Colace) 2 tablet PO BID [facility] Last Admin: 05/25/18 07:39 Dose: Not Given Tamsulosin HCl (Flomax) 0.4 mg PO DAILY@1730 [facility] Last Admin: 05/24/18 17:25 Dose: 0.4 mg Medical Necessity - Tobacco Use Smoking Status: Current every day smoker Assessment/Plan All Active Problems Fall (Resolved) Rhabdomyolysis (Resolved) Debility status post fall resulting in right hip fracture status post ORIF 05/12/18 and consequent epidural hematoma in his thoracic spine status post evacuation laminectomy 05/15/18. This is all complicated by a history of ankylosing spondylitis, chronic back pain and alcohol use. Goal of rehab is latter day of previous level of functional independence. Plan: Physical therapy for transfers, he is nonweightbearing. Occupational Therapy for ADLs PRN analgesics Bowel protocol DVT prophylaxis: Transfer orders recommended Lovenox however given his thoracic hematoma and ongoing back pain we will limit his DVT prophylaxis to SCDs. Given platelet count (149)will continue to hold on starting Lovenox at this time, will re-address in the next day or two. Encourage alcohol abstention Continue antihypertensives Proton pump inhibitor Urinary retention: Louise catheter for now. Constipation: Bowel protocol Back pain: Repeat CT of his thoracic spine to increase fentanyl patch
[2018-05-25 11:09] LABS: Platelet Count 149 K/mm3 (150-450)
[2018-05-25] MEDS: fentaNYL 25 MCG Patch TRANSDERM. (13:41)
--- NOTE | 2018-05-25 15:31 | NURSING ---
wound photo: left lateral heel
[2018-05-25] MEDS: Tamsulosin HCl 0.4 MG Capsule PO (16:45)
[2018-05-25 19:06] VITALS: BP 121/59; PULSE 103; RESP 18; TEMP 37.2; O2SAT 97
[2018-05-25] MEDS: Senna/Docusate Sodium 1 Tablet 2 TABLET PO (23:05)
--- NOTE | 2018-05-26 01:30 | NURSING ---
PT ATTENDS WITH APPROX 200 ML URINE IN IT, BLADDER SCANNED FOR 650 ML. STRAIGHT CATHED WITH RED RUBBER ORNELAS CATH FOR 650 ML YELLOW/ORANGE URINE WITH SMALL AMT SEDIMENT AND SLIGHTLY CLOUDY. NORMAL ODOR. PT TOLERATES PROCEDURE WELL.
[2018-05-26] MEDS: oxyCODONE 5 MG Tablet PO ×2 (06:31→21:58)
[2018-05-26] MEDS: Menthol/Lanolin/Calamine/Znox 113 GM Tube 1 APPLIC TOPICAL ×3 (06:32→21:33)
[2018-05-26] MEDS: guaiFENesin 600 MG Tablet PO ×2 (08:04→21:33)
[2018-05-26] MEDS: Multivitamins,Therapeutic Tablet 1 TABLET PO (08:04)
[2018-05-26] MEDS: Gabapentin 100 MG Capsule PO ×3 (08:04→17:20)
[2018-05-26] MEDS: Pantoprazole Sodium 20 MG Tablet PO (08:04)
[2018-05-26] MEDS: Escitalopram Oxalate 10 MG Tablet PO (08:04)
[2018-05-26 08:15] VITALS: PULSE 88; RESP 16; TEMP 36.7; O2SAT 97
[2018-05-26] MEDS: Lisinopril 20 MG Tablet PO (10:20)
[2018-05-26] MEDS: hydroCHLOROthiazide 25 MG Tablet PO (10:20)
--- NOTE | 2018-05-26 11:09 | PCM.PN.NEU ---
Subjective: Staffed in team meeting. Family was not at bedside, questions where answered. With Physical therapy, he is a moderate assist of one for turning in the bed or any bed mobility. He is a 2 persons assist for transfers using the sliding board, movement is painful. He does have some sensation returning to his legs. With Occupational therapy, he is able to do his personal care, feeding and grooming at set up level as long as he is in an upright sitting position. He is minimal assist for upper body dressing. He is total assist for lower body bathing, and dressing. With Nursing, his Louise was removed yesterday, he has urinated some but still has high residuals or 850cc, and 650cc was straight cath both times. This morning he had high residuals, will replace the Louise and consult Urology, he is currently on Flomax. He is also having muscle spasms in his lower back area will start him on Flexeril 4mg. He still has his janae in from his right hip surgery, per the surgeon may remove the janae 2 weeks postop, his surgery was on 05/12/18, may remove the janae today. he has a follow up appointment with Dr. Sebastian for his spine on 06/08/18. - Physical Exam General: Alert, Oriented x3, Cooperative HEENT: Atraumatic, PERRLA, EOMI, Normocephalic Neck: Supple, No JVD, Negative Carotid Bruits Lungs: Clear to auscultation, Normal air movement Cardiovascular: Regular rate, No murmurs Abdomen: Bowel Sounds Present, Soft, Non Tender Extremities: No edema, Capillary Refill Less than 3 Seconds Skin: No rashes, No breakdown Musculoskeletal: No Tenderness to Palpation of Joints or Extremities Neurological: Cranial nerves II-XII grossly intact Psych/Mental Status: Normal Affect, Appropriate, Alert and oriented to time, place, person, mood and affect Vital Signs Temp Pulse Resp BP Pulse Ox 98.1 F 88 16 121/59 H 97 05/26/18 08:15 05/26/18 08:15 05/26/18 08:15 05/25/18 19:06 05/26/18 08:15 Oxygen Delivery Method Room Air Weight: 76.657 kg Body Mass Index (BMI) 30.8 Intake and Output for Last 24 Hours 05/24/18 05/25/18 05/26/18 23:59 23:59 23:59 Intake Total 1060 / 1060 3130 / 3130 100 / 100 Output Total 1550 / 1550 1750 / 1750 1300 / 1300 Balance -490 / -490 1380 / 1380 -1200 / -1200 Laboratory Tests Past 24 Hrs 05/25/18 10:45 Plt Count 149 L Active Medications Bisacodyl (Dulcolax) 10 mg RECTAL .PRN X 1 PRN PRN Reason: Constipation Calamine/Phenol (Calmoseptine Ointment) 1 applic TOPICAL TID [facility]; Protocol Last Admin: 05/26/18 06:32 Dose: 1 applicatio Emollient Ointment (Eucerin Intensive Repair) 1 applic TOPICAL BID@2200,0600 [facility]; Protocol Last Admin: 05/26/18 06:32 Dose: 1 applicatio Ergocalciferol (Vitamin D) 50,000 unit PO Q7D [facility] Last Admin: 05/22/18 08:22 Dose: 50,000 unit Escitalopram Oxalate (Lexapro) 10 mg PO DAILY [facility] Last Admin: 05/26/18 08:04 Dose: 10 mg Fentanyl (Duragesic Patch) 25 mcg TRANSDERM. Q3D [facility] Last Admin: 05/25/18 13:41 Dose: 25 mcg Gabapentin (Neurontin) 100 mg PO TIDCM [facility] Last Admin: 05/26/18 08:04 Dose: 100 mg Guaifenesin (Mucinex) 600 mg PO BID [facility] Last Admin: 05/26/18 08:04 Dose: 600 mg Hydrochlorothiazide (Hctz) 25 mg PO DAILY [facility] Last Admin: 05/26/18 10:20 Dose: 25 mg Lisinopril (Zestril) 20 mg PO DAILY [facility] Last Admin: 05/26/18 10:20 Dose: 20 mg Magnesium Hydroxide (Milk Of Magnesia) 30 ml PO .PRN X 1 PRN PRN Reason: Constipation [facility]ivit[facility] ([facility]itamin) [facility] Last Admin: 05/26/18 08:04 Dose: 1 tablet Oxycodone HCl (Oxyir) 5 mg PO Q6H PRN PRN PRN Reason: PAIN Last Admin: 05/26/18 06:31 Dose: 5 mg Pantoprazole Sodium (Protonix) 20 mg PO DAILY [facility] Last Admin: 05/26/18 08:04 Dose: 20 mg Senna/Docusate Sodium (Senokot-S, Marcie-Colace) 2 tablet PO BID PRN PRN Reason: CONSTIPATION Tamsulosin HCl (Flomax) 0.4 mg PO DAILY@1730 [facility] Last Admin: 05/25/18 16:45 Dose: 0.4 mg Tizanidine HCl (Zanaflex) 4 mg PO Q8 [facility] Stop: 05/28/18 06:01 Tizanidine HCl (Zanaflex) 4 mg PO Q8H PRN PRN PRN Reason: MUSCLE SPASM Medical Necessity - Tobacco Use Smoking Status: Current every day smoker Assessment/Plan All Active Problems Fall (Resolved) Rhabdomyolysis (Resolved) Debility status post fall resulting in right hip fracture status post ORIF 05/12/18 and consequent epidural hematoma in his thoracic spine status post evacuation laminectomy 05/15/18. This is all complicated by a history of ankylosing spondylitis, chronic back pain and alcohol use. Goal of rehab is sabianist of previous level of functional independence. Plan: Physical therapy for transfers, he is nonweightbearing. Occupational Therapy for ADLs PRN analgesics Bowel protocol DVT prophylaxis: Transfer orders recommended Lovenox however given his thoracic hematoma and ongoing back pain we will limit his DVT prophylaxis to SCDs. Given platelet count (149)will continue to hold on starting Lovenox at this time, will re-address in the next day or two. Encourage alcohol abstention Continue antihypertensives Proton pump inhibitor Urinary retention: Louise catheter for now. Constipation: Bowel protocol Back pain: Repeat CT of his thoracic spine to increase fentanyl patch May removed janae from right hip 2 weeks after surgery MRI lumbar spine
--- NOTE | 2018-05-26 11:21 | PN.NEURO_ITS ---
Subjective: Staffed in team meeting. Family was not at bedside, questions where answered. With Physical therapy, he is a moderate assist of one for turning in the bed or any bed mobility. He is a 2 persons assist for transfers using the sliding board, movement is painful. He does have some sensation returning to his legs. With Occupational therapy, he is able to do his personal care, feeding and grooming at set up level as long as he is in an upright sitting position. He is minimal assist for upper body dressing. He is total assist for lower body bathing, and dressing. With Nursing, his Louise was removed yesterday, he has urinated some but still has high residuals or 850cc, and 650cc was straight cath both times. This morning he had high residuals, will replace the Louise and consult Urology, he is currently on Flomax. He is also having muscle spasms in his lower back area will start him on Flexeril 4mg. He still has his janae in from his right hip surgery, per the surgeon may remove the janae 2 weeks postop, his surgery was on 05/12/18, may remove the janae today. he has a follow up appointment with Dr. Sebastian for his spine on 06/08/18. - Physical Exam General: Alert, Oriented x3, Cooperative HEENT: Atraumatic, PERRLA, EOMI, Normocephalic Neck: Supple, No JVD, Negative Carotid Bruits Lungs: Clear to auscultation, Normal air movement Cardiovascular: Regular rate, No murmurs Abdomen: Bowel Sounds Present, Soft, Non Tender Extremities: No edema, Capillary Refill Less than 3 Seconds Skin: No rashes, No breakdown Musculoskeletal: No Tenderness to Palpation of Joints or Extremities Neurological: Cranial nerves II-XII grossly intact Psych/Mental Status: Normal Affect, Appropriate, Alert and oriented to time, place, person, mood and affect Vital Signs Temp Pulse Resp BP Pulse Ox 98.1 F 88 16 121/59 H 97 05/26/18 08:15 05/26/18 08:15 05/26/18 08:15 05/25/18 19:06 05/26/18 08:15 Oxygen Delivery Method Room Air Weight: 76.657 kg Body Mass Index (BMI) 30.8 Intake and Output for Last 24 Hours 05/24/18 05/25/18 05/26/18 23:59 23:59 23:59 Intake Total 1060 / 1060 3130 / 3130 100 / 100 Output Total 1550 / 1550 1750 / 1750 1300 / 1300 Balance -490 / -490 1380 / 1380 -1200 / -1200 Laboratory Tests Past 24 Hrs 05/25/18 10:45 Plt Count 149 L Active Medications Bisacodyl (Dulcolax) 10 mg RECTAL .PRN X 1 PRN PRN Reason: Constipation Calamine/Phenol (Calmoseptine Ointment) 1 applic TOPICAL TID [facility]; Protocol Last Admin: 05/26/18 06:32 Dose: 1 applicatio Emollient Ointment (Eucerin Intensive Repair) 1 applic TOPICAL BID@2200,0600 [facility]; Protocol Last Admin: 05/26/18 06:32 Dose: 1 applicatio Ergocalciferol (Vitamin D) 50,000 unit PO Q7D [facility] Last Admin: 05/22/18 08:22 Dose: 50,000 unit Escitalopram Oxalate (Lexapro) 10 mg PO DAILY [facility] Last Admin: 05/26/18 08:04 Dose: 10 mg Fentanyl (Duragesic Patch) 25 mcg TRANSDERM. Q3D [facility] Last Admin: 05/25/18 13:41 Dose: 25 mcg Gabapentin (Neurontin) 100 mg PO TIDCM [facility] Last Admin: 05/26/18 08:04 Dose: 100 mg Guaifenesin (Mucinex) 600 mg PO BID [facility] Last Admin: 05/26/18 08:04 Dose: 600 mg Hydrochlorothiazide (Hctz) 25 mg PO DAILY [facility] Last Admin: 05/26/18 10:20 Dose: 25 mg Lisinopril (Zestril) 20 mg PO DAILY [facility] Last Admin: 05/26/18 10:20 Dose: 20 mg Magnesium Hydroxide (Milk Of Magnesia) 30 ml PO .PRN X 1 PRN PRN Reason: Constipation [facility]it[facility]) [facility] Last Admin: 05/26/18 08:04 Dose: 1 tablet Oxycodone HCl (Oxyir) 5 mg PO Q6H PRN PRN PRN Reason: PAIN Last Admin: 05/26/18 06:31 Dose: 5 mg Pantoprazole Sodium (Protonix) 20 mg PO DAILY [facility] Last Admin: 05/26/18 08:04 Dose: 20 mg Senna/Docusate Sodium (Senokot-S, Marcie-Colace) 2 tablet PO BID PRN PRN Reason: CONSTIPATION Tamsulosin HCl (Flomax) 0.4 mg PO DAILY@1730 [facility] Last Admin: 05/25/18 16:45 Dose: 0.4 mg Tizanidine HCl (Zanaflex) 4 mg PO Q8 [facility] Stop: 05/28/18 06:01 Tizanidine HCl (Zanaflex) 4 mg PO Q8H PRN PRN PRN Reason: MUSCLE SPASM Medical Necessity - Tobacco Use Smoking Status: Current every day smoker Assessment/Plan All Active Problems Fall (Resolved) Rhabdomyolysis (Resolved) Debility status post fall resulting in right hip fracture status post ORIF 05/12/18 and consequent epidural hematoma in his thoracic spine status post evacuation laminectomy 05/15/18. This is all complicated by a history of ankylosing spondylitis, chronic back pain and alcohol use. Goal of rehab is scientology of previous level of functional independence. Plan: Physical therapy for transfers, he is nonweightbearing. Occupational Therapy for ADLs PRN analgesics Bowel protocol DVT prophylaxis: Transfer orders recommended Lovenox however given his thoracic hematoma and ongoing back pain we will limit his DVT prophylaxis to SCDs. Given platelet count (149)will continue to hold on starting Lovenox at this time, will re-address in the next day or two. Encourage alcohol abstention Continue antihypertensives Proton pump inhibitor Urinary retention: Louise catheter for now. Constipation: Bowel protocol Back pain: Repeat CT of his thoracic spine to increase fentanyl patch May removed janae from right hip 2 weeks after surgery MRI lumbar spine
--- NOTE | 2018-05-26 11:23 | PCM.RU.PYE ---
Admission Information Status Changes from Prescreening?: No changes Identified Actual Problem List:: Falls, Mobility Impaired, Self Care Deficit Potential Problem List:: DVT, Bleeding, Infection, UTI, Aspiration, Falls, Skin Integrity, Depression Risk of Complications DVT: LMWH, RL Hose, Sequential Compression Device Bleeding: Monitor Lab Values, Nursing to Teach Precautions for anti-coagulation therapy., Wound, if applicable, to be assessed every shift., Stroke patients assessed for lethargy or change in status. Infection: Clinical Staff to Monitor for S/S of infection:, S/S of infection include fever, redness, warmth, etc. Urinary Tract Infection: Monitor for frequency, burning, discomfort, or incontinence., Nursing will obtain urine sample for urinalysis and C&S when ordered. Aspiration: Clinical staff will monitor for coughing, drooling, congestion., Speech will evaluate swallowing and dsyphasia., Nursing will monitor patient swallowing during meals. Falls: Patient will be evaluated for Fall Precautions, Patient will be placed on Fall Precautions as indicated per protocol. Skin Breakdown: Nursing will assess skin daily using assessment tool., Nursing will place on Skin Breakdown Precautions as indicated. Pain: Clinical staff will assess patient's pain level per protocol., Medications will be given, if needed, and the pain level reassessed., Other methods: Massage, distraction, decrease stimulus, etc. used PRN. Plan of Care Patient requires physician specializing in physical medicine and rehab oversight to provide close medical supervision of rehab issues including: Pain Management, Sleep Problems, Bowel and Bladder, Medical and co-morbidity Management, DVT prophylaxis, Rehabilitation Leadership, Coordination of treatment team Patient needs Physical Therapy: For a minimum of 1 hour, At least 5 out of 7 days Patient needs Physical Therapy to improve:: Mobility, Mobility, Mobility, Strengthening, Transfers, Stretching, ROM, Endurance, Stairs, Gait, Balance Patient needs Occupational Therapy: For a minimum of 1 hour, At least 5 out of 7 days Patient needs Occupational Therapy to improve ADL's incl.: Eating, Grooming, Bathing, Dressing, Toileting, Toilet transfers, Community Reintegration, Higher functioning activities, Household tasks, Adaptive Equipment, Splinting, Other activities as determined Patient requires speech therapy: For a minimum of 1 hour, At least 5 out of 7 days Patient requires speech therapy for: Swallowing, Cognition, Language Skills, Compensatory Strategies Patient requires / Rehabilitation Nursing for: Pain Issues, Identifying and preventing risk factors, Monitoring and reporting current medical conditions, Assisting with ambulation, transfer, and all ADL's, Teaching patients about disease process and medications, Family teaching, Providing safe environment, Bowel and Bladder Issues, Skin integrity, Medication Management Patient needs Director Of Elementary Education/ Case Management for: Discharge Planning, Arranging Home Equipment or Services, Family Interventions Patient needs Dietary and Nutrition Services for: Adequate Nutrition, Nutritional Supplements, Nutritional Education Goals Patient will remain: free from falls, or injury at time of discharge. Patient will perform bed mobility at: MOD I level of assist. Patient will complete transfers from bed to chair at: MOD I level of assist. Patient will ambulate: 100 feet, with MOD I assist, with LRD Patient will complete upper body dressing at: MOD I level of assist. Patient will complete lower body dressing at: MOD I level of assist. Patient will complete toileting at: MOD I level of assist. Patient will perform bathing at: MOD I level of assist. Patient will complete grooming at: MOD I level of assist. Patient will complete home management skills at: MOD I level of assist. Patient will achieve: 12 stairs, at MOD I assist Patient will have pain level of: of 3 or less Patient's skin will: remain intact, free from infection. Patient will receive: adequate nutrition. Discharge Planning Pt Prognosis for Sig. Practical Improv. w/in Reasonable Time: Fair Estimated Length of stay (days): 21 Anticipated D/C Destination: Detention Facility Was Preadmission Assessment Accurate?: Yes
--- NOTE | 2018-05-26 11:39 | CASEMGMT ---
Team meeting held. Patient present, no support person present at this time. Patient approved 20 Medicare days with a discharge on or by 06/12/18. Patient currently lives alone in an apartment building that has no stairs to enter. Unsure of discharge plan at this time due to patient level of assistance. This older adult social work specialist to keep following up with patient on discharge planning and support. Will continue to follow. Patient to be re-teamed next week. CATALINA StahlW, SUPERVISOR ST[employer]ING DEPARTMENT
--- NOTE | 2018-05-26 12:49 | MRI_ITS ---
STUDY: MRI BRAIN WITHOUT CONTRAST REASON FOR EXAM: Male, 62 years old. PRES. TECHNIQUE: Standardized multiplanar fat and water weighted pulse sequences were obtained. COMPARISON: None. FINDINGS: This study is slightly limited due to positioning. There is decreased resolution on the FLAIR sequence. There is mild cerebral atrophy with widening of the extra-axial spaces and ventricular dilatation. There are a limited number of small white matter hyperintensities, distributed throughout the deep white matter tracts of the cerebral hemispheres, consistent with mild chronic white matter ischemic changes. Areas of signal hyperintensity in the occipital lobes are essentially resolved compared to the prior study. Normal bilateral basal ganglia. Normal thalami. There is no extra-axial fluid accumulation. Normal flow voids within the major intracranial circulation suggesting patency by spin echo criteria. Normal sella turcica, pituitary gland, infundibular stalk, optic chiasm and hypothalamus. Normal tectal plate and pineal gland. Normal midbrain, regino and medulla. Normal cerebellum. Normal basal cisterns. Normal bilateral temporal bones. Normal bilateral internal auditory canals. No demonstrated orbital abnormality, within the constraints of a routine brain study. Normal visualized paranasal sinuses. Normal calvarium and skull base. Normal visualized soft tissue structures. Normal visualized upper cervical spine. 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 Mild chronic microvascular ischemic changes. Electronically Signed: Natividad Donaldson MD at 17:27 EST Tel , Service support ,
[2018-05-26 13:13] LABS: Platelet Count 127 K/mm3 (150-450)
[2018-05-26] MEDS: tiZANidine HCl 2 MG Tablet 4 MG PO ×2 (13:16→21:33)
[2018-05-26 13:39] LABS: ALB/GLOB Ratio 0.6 RATIO (0.9-2.4); AST(SGOT) 42 U/L (15-37); Alanine Aminotransfer ALT/SGPT 46 U/L (16-61); Albumin, Serum 2.5 g/dL (3.2-5.0); Alkaline Phosphatase 313 U/L (45-117); Anion Gap 10 (5-15); BUN 30 mg/dL (7-18); BUN/Creat Ratio 36.2 RATIO (10-20); Calcium,Total 8.1 mg/dL (8.5-10.1); Chloride 95 mmol/L (98-107); Creatinine, Serum 0.83 mg/dL (0.70-1.30); EST Glomerular Filtration Rate 100 mL/min (>60); Est Glom Filt Rate - Afr Amer 121 mL/min (>60); Estimated Creatinine Clearance 78.26 ml/min; Glucose 140 mg/dL (74-106); Potassium 3.4 mmol/L (3.5-5.1); Protein, Total 6.5 g/dL (6.4-8.2); Sodium Level 136 mmol/L (136-145)
--- NOTE | 2018-05-26 14:47 | RAD_ITS ---
STUDY: X-RAY - RIGHT HIP REASON FOR EXAM: Male, 62 years old. Right hip pain. TECHNIQUE: 5 views of the hip. COMPARISON: None. FINDINGS: The patient is status post internal fixation of a right femoral neck and shaft fracture. Fragments of the greater and lesser tuberosities are present. There is no radiographic evidence of loosening of fixation hardware. There is no acute fracture. There is no hip dislocation. Mild degenerative changes of the hips are noted bilaterally, with lateral acetabular spurring. There is mild joint space narrowing, greater on the left. Enthesopathic degenerative changes of the pelvis are noted. RAD/HIP, UNI W/ Pelvis 2-3 Views IMPRESSION: 1. No acute process. 2. Status post ORIF of the right hip. 3. Mild degenerative changes of the hips and pelvis. Electronically Signed: Natividad Donaldson MD at 16:42 EST Tel , Service support ,
[2018-05-26] MEDS: Tamsulosin HCl 0.4 MG Capsule PO (17:20)
[2018-05-26 21:32] VITALS: BP 97/57; PULSE 69; RESP 18; TEMP 37.2; O2SAT 96
[2018-05-27] MEDS: tiZANidine HCl 2 MG Tablet 4 MG PO ×3 (06:29→20:18)
[2018-05-27] MEDS: Multivitamins,Therapeutic Tablet 1 TABLET PO (08:57)
[2018-05-27] MEDS: Gabapentin 100 MG Capsule PO ×3 (08:57→18:39)
[2018-05-27] MEDS: Pantoprazole Sodium 20 MG Tablet PO (08:57)
[2018-05-27] MEDS: hydroCHLOROthiazide 25 MG Tablet PO (08:57)
[2018-05-27] MEDS: oxyCODONE 5 MG Tablet PO (08:57)
[2018-05-27] MEDS: Escitalopram Oxalate 10 MG Tablet PO (08:57)
[2018-05-27] MEDS: guaiFENesin 600 MG Tablet PO ×2 (08:58→20:19)
[2018-05-27] MEDS: Lisinopril 20 MG Tablet PO (08:58)
[2018-05-27 09:09] VITALS: BP 121/72; PULSE 76; RESP 16; TEMP 36.8; O2SAT 92
--- NOTE | 2018-05-27 13:15 | CT_ITS ---
STUDY: CT THORACIC SPINE WITHOUT CONTRAST REASON FOR EXAM: Male, 62 years old. Pain between shoulders. The patient is paraplegic secondary to thoracic fracture. Prior surgical instrumentation. RADIATION DOSAGE (If Supplied By Facility): CTDIvol = ( 19.97 ) mGy, DLP = ( 744.83 ) mGycm TECHNIQUE: The patient was scanned in a multi detector CT scanner. High resolution imaging was performed. Images were obtained from T1 to T12 vertebral level. Sagittal and coronal images were reconstructed. Individualized dose optimization techniques were used for this CT. COMPARISON: Comparison is made with prior study dated May 22, 2018. FINDINGS: Once again, there is evidence of a syndesmophytes along the anterior aspect of the thoracic vertebrae and upper lumbar vertebrae suggestive of ankylosing spondylitis. There is an increased kyphosis of the thoracic spine. There is no substantial scoliosis. The patient is status post interpedicular screw and sue fixation T3 down to the T9 level. There is multilevel degenerative disc disease with loss of the disc space heights. Months again, there is a stable fracture involving the posterior aspect of the body of the T8 vertebrae with minimal listhesis of T7 on T8. The soft tissue structures are unremarkable. CT/Spine Thoracic without Contras IMPRESSION: Stable examination. Electronically Signed: Venkata Franklin MD at 14:11 EST Tel [phone], Service support ,
[2018-05-27] MEDS: Menthol/Lanolin/Calamine/Znox 113 GM Tube 1 APPLIC TOPICAL ×2 (15:15→20:19)
--- NOTE | 2018-05-27 15:43 | NURSING ---
Called and left message with Dr. Cunha's clinical staff informing them thi pt received x-ray yesterday as per request of Dr. Cunha.
[2018-05-27] MEDS: Tamsulosin HCl 0.4 MG Capsule PO (18:38)
[2018-05-27 20:17] VITALS: BP 115/68; PULSE 82; RESP 18; TEMP 36.8; O2SAT 93
[2018-05-28] MEDS: tiZANidine HCl 2 MG Tablet 4 MG PO (07:03)
[2018-05-28] MEDS: oxyCODONE 5 MG Tablet PO (07:03)
[2018-05-28 07:54] VITALS: BP 102/50; PULSE 85; RESP 18; TEMP 36.8; O2SAT 97
[2018-05-28] MEDS: Gabapentin 100 MG Capsule PO ×3 (07:55→18:18)
[2018-05-28] MEDS: guaiFENesin 600 MG Tablet PO ×2 (07:55→21:59)
[2018-05-28] MEDS: Pantoprazole Sodium 20 MG Tablet PO (07:55)
[2018-05-28] MEDS: Multivitamins,Therapeutic Tablet 1 TABLET PO (07:56)
[2018-05-28 10:34] VITALS: BP 97/48; PULSE 69
[2018-05-28] MEDS: Escitalopram Oxalate 10 MG Tablet PO (10:37)
[2018-05-28] MEDS: Menthol/Lanolin/Calamine/Znox 113 GM Tube 1 APPLIC TOPICAL ×2 (14:30→21:59)
[2018-05-28] MEDS: fentaNYL 25 MCG Patch TRANSDERM. (14:31)
[2018-05-28] MEDS: Tamsulosin HCl 0.4 MG Capsule PO (18:18)
[2018-05-28 21:17] VITALS: BP 131/74; PULSE 84; RESP 18; TEMP 36.7; O2SAT 94
[2018-05-29] MEDS: Menthol/Lanolin/Calamine/Znox 113 GM Tube 1 APPLIC TOPICAL ×3 (06:19→22:22)
[2018-05-29 07:25] VITALS: BP 137/78; PULSE 100; RESP 18; TEMP 36.9; O2SAT 98
[2018-05-29] MEDS: hydroCHLOROthiazide 25 MG Tablet PO (08:27)
[2018-05-29] MEDS: Pantoprazole Sodium 20 MG Tablet PO (08:27)
[2018-05-29] MEDS: guaiFENesin 600 MG Tablet PO ×2 (08:27→22:22)
[2018-05-29] MEDS: Escitalopram Oxalate 10 MG Tablet PO (08:27)
[2018-05-29] MEDS: Gabapentin 100 MG Capsule PO ×3 (08:27→17:39)
[2018-05-29] MEDS: Multivitamins,Therapeutic Tablet 1 TABLET PO (08:27)
[2018-05-29] MEDS: Lisinopril 20 MG Tablet PO (08:28)
[2018-05-29] MEDS: oxyCODONE 5 MG Tablet PO (08:34)
--- NOTE | 2018-05-29 08:54 | NURSING ---
Turned pt to R. Side supported back with pillows, pt tolerated well. Resting with eyes closed.
[2018-05-29] MEDS: tiZANidine HCl 2 MG Tablet 4 MG PO (14:24)
[2018-05-29] MEDS: Tamsulosin HCl 0.4 MG Capsule PO (17:39)
[2018-05-29 22:15] VITALS: BP 96/44; PULSE 82; RESP 18; TEMP 36.6; O2SAT 97
--- NOTE | 2018-05-30 02:25 | NURSING ---
Reviewed & agree with WELFARE INTERVIEWER documentation & [facility] charting
[2018-05-30] MEDS: Menthol/Lanolin/Calamine/Znox 113 GM Tube 1 APPLIC TOPICAL ×3 (06:20→22:09)
[2018-05-30 07:00] VITALS: BP 92/58; PULSE 80; RESP 17; TEMP 36.7; O2SAT 97
[2018-05-30] MEDS: Escitalopram Oxalate 10 MG Tablet PO (08:25)
[2018-05-30] MEDS: Multivitamins,Therapeutic Tablet 1 TABLET PO (08:25)
[2018-05-30] MEDS: guaiFENesin 600 MG Tablet PO ×2 (08:25→22:08)
[2018-05-30] MEDS: Gabapentin 100 MG Capsule PO ×3 (08:25→17:49)
[2018-05-30] MEDS: Pantoprazole Sodium 20 MG Tablet PO (08:26)
[2018-05-30] MEDS: oxyCODONE 5 MG Tablet PO ×2 (08:26→22:46)
[2018-05-30 09:00] VITALS: BP 104/67; PULSE 88
[2018-05-30] MEDS: hydroCHLOROthiazide 25 MG Tablet PO (12:30)
--- NOTE | 2018-05-30 13:17 | PCM.PN.NEU ---
Subjective: Patient seen, had an episode of dizziness, was very diaphoretic, and nausea when working with physical therapy this morning. Normally he tolerates therapy without any difficulty. Will get him out of bed and have him set in a chair an hour in the morning and an hour in the afternoon. Tolerating regular diet. Louise in place, no issues with GI, will need to place him on a bowel regime since he is unable to feel when he needs to go or if he needs to go. - Physical Exam General: Alert, Oriented x3, Cooperative HEENT: Atraumatic, PERRLA, EOMI, Normocephalic Neck: Supple, No JVD, Negative Carotid Bruits Lungs: Clear to auscultation, Normal air movement Cardiovascular: Regular rate, No murmurs Abdomen: Bowel Sounds Present, Soft, Non Tender Extremities: No edema, Capillary Refill Less than 3 Seconds Skin: No rashes, No breakdown Musculoskeletal: No Tenderness to Palpation of Joints or Extremities Neurological: Cranial nerves II-XII grossly intact Psych/Mental Status: Normal Affect, Appropriate, Alert and oriented to time, place, person, mood and affect Vital Signs Temp Pulse Resp BP Pulse Ox 98.0 F 88 17 104/67 97 05/30/18 07:00 05/30/18 09:00 05/30/18 07:00 05/30/18 09:00 05/30/18 07:00 Oxygen Delivery Method Room Air Weight: 76.657 kg Body Mass Index (BMI) 30.8 Intake and Output for Last 24 Hours 05/28/18 05/29/18 05/30/18 23:59 23:59 23:59 Intake Total 1390 / 1390 2070 / 2070 1080 / 1080 Output Total 4050 / 4050 3075 / 3075 1757 / 1757 Balance -2660 / -2660 -1005 / -1005 -677 / -677 Active Medications Bisacodyl (Dulcolax) 10 mg RECTAL .PRN X 1 PRN PRN Reason: Constipation Calamine/Phenol (Calmoseptine Ointment) 1 applic TOPICAL TID [facility]; Protocol Last Admin: 05/30/18 06:20 Dose: 1 applicatio Emollient Ointment (Eucerin Intensive Repair) 1 applic TOPICAL BID@2200,0600 [facility]; Protocol Last Admin: 05/30/18 06:20 Dose: 1 applicatio Ergocalciferol (Vitamin D) 50,000 unit PO Q7D [facility] Last Admin: 05/29/18 08:27 Dose: 50,000 unit Escitalopram Oxalate (Lexapro) 10 mg PO DAILY [facility] Last Admin: 05/30/18 08:25 Dose: 10 mg Fentanyl (Duragesic Patch) 25 mcg TRANSDERM. Q3D [facility] Last Admin: 05/28/18 14:31 Dose: 25 mcg Gabapentin (Neurontin) 100 mg PO TIDCM [facility] Last Admin: 05/30/18 12:31 Dose: 100 mg Guaifenesin (Mucinex) 600 mg PO BID [facility] Last Admin: 05/30/18 08:25 Dose: 600 mg Hydrochlorothiazide (Hctz) 25 mg PO DAILY [facility] Last Admin: 05/30/18 12:30 Dose: 25 mg Lisinopril (Zestril) 20 mg PO DAILY [facility] Last Admin: 05/30/18 08:23 Dose: Not Given Magnesium Hydroxide (Milk Of Magnesia) 30 ml PO .PRN X 1 PRN PRN Reason: Constipation [facility]it[facility] ([facility]) [facility] Admin: 05/30/18 08:25 Dose: 1 tablet Nutritional Formula (Mac - [place] Flavor) [facility] Last Admin: 05/30/18 08:25 Dose: 1 packet Oxycodone HCl (Oxyir) 5 mg PO Q6H PRN PRN PRN Reason: PAIN Last Admin: 05/30/18 08:26 Dose: 5 mg Pantoprazole Sodium (Protonix) 20 mg PO DAILY [facility] Last Admin: 05/30/18 08:26 Dose: 20 mg Senna/Docusate Sodium (Senokot-S, Marcie-Colace) 2 tablet PO BID PRN PRN Reason: CONSTIPATION Tamsulosin HCl (Flomax) 0.4 mg PO DAILY@1730 [facility] Last Admin: 05/29/18 17:39 Dose: 0.4 mg Tizanidine HCl (Zanaflex) 4 mg PO Q8H PRN PRN PRN Reason: MUSCLE SPASM Last Admin: 05/29/18 14:24 Dose: 4 mg Medical Necessity - Tobacco Use Smoking Status: Current every day smoker Assessment/Plan All Active Problems Fall (Resolved) Rhabdomyolysis (Resolved) Debility status post fall resulting in right hip fracture status post ORIF 05/12/18 and consequent epidural hematoma in his thoracic spine status post evacuation laminectomy 05/15/18. This is all complicated by a history of ankylosing spondylitis, chronic back pain and alcohol use. Goal of rehab is christianity of previous level of functional independence. Plan: Physical therapy for transfers, he is nonweightbearing. Occupational Therapy for ADLs PRN analgesics Bowel protocol DVT prophylaxis: Transfer orders recommended Lovenox however given his thoracic hematoma and ongoing back pain we will limit his DVT prophylaxis to SCDs. Given platelet count (149)will continue to hold on starting Lovenox at this time, will re-address in the next day or two. Encourage alcohol abstention Continue antihypertensives Proton pump inhibitor Urinary retention: Louise catheter for now. Constipation: Bowel protocol Back pain: Repeat CT of his thoracic spine to increase fentanyl patch May removed janae from right hip 2 weeks after surgery - janae removed, incision is well approximated is C/D, no redness or edema noted. MRI brain -> shows resolution of PRES will not restart Keppra at this time Get out of bed and into a chair an hour in the morning and an hour in the afternoon
--- NOTE | 2018-05-30 13:22 | PN.NEURO_ITS ---
Subjective: Patient seen, had an episode of dizziness, was very diaphoretic, and nausea when working with physical therapy this morning. Normally he tolerates therapy without any difficulty. Will get him out of bed and have him set in a chair an hour in the morning and an hour in the afternoon. Tolerating regular diet. Louise in place, no issues with GI, will need to place him on a bowel regime since he is unable to feel when he needs to go or if he needs to go. - Physical Exam General: Alert, Oriented x3, Cooperative HEENT: Atraumatic, PERRLA, EOMI, Normocephalic Neck: Supple, No JVD, Negative Carotid Bruits Lungs: Clear to auscultation, Normal air movement Cardiovascular: Regular rate, No murmurs Abdomen: Bowel Sounds Present, Soft, Non Tender Extremities: No edema, Capillary Refill Less than 3 Seconds Skin: No rashes, No breakdown Musculoskeletal: No Tenderness to Palpation of Joints or Extremities Neurological: Cranial nerves II-XII grossly intact Psych/Mental Status: Normal Affect, Appropriate, Alert and oriented to time, place, person, mood and affect Vital Signs Temp Pulse Resp BP Pulse Ox 98.0 F 88 17 104/67 97 05/30/18 07:00 05/30/18 09:00 05/30/18 07:00 05/30/18 09:00 05/30/18 07:00 Oxygen Delivery Method Room Air Weight: 76.657 kg Body Mass Index (BMI) 30.8 Intake and Output for Last 24 Hours 05/28/18 05/29/18 05/30/18 23:59 23:59 23:59 Intake Total 1390 / 1390 2070 / 2070 1080 / 1080 Output Total 4050 / 4050 3075 / 3075 1757 / 1757 Balance -2660 / -2660 -1005 / -1005 -677 / -677 Active Medications Bisacodyl (Dulcolax) 10 mg RECTAL .PRN X 1 PRN PRN Reason: Constipation Calamine/Phenol (Calmoseptine Ointment) 1 applic TOPICAL TID [facility]; Protocol Last Admin: 05/30/18 06:20 Dose: 1 applicatio Emollient Ointment (Eucerin Intensive Repair) 1 applic TOPICAL BID@2200,0600 [facility]; Protocol Last Admin: 05/30/18 06:20 Dose: 1 applicatio Ergocalciferol (Vitamin D) 50,000 unit PO Q7D [facility] Last Admin: 05/29/18 08:27 Dose: 50,000 unit Escitalopram Oxalate (Lexapro) 10 mg PO DAILY [facility] Last Admin: 05/30/18 08:25 Dose: 10 mg Fentanyl (Duragesic Patch) 25 mcg TRANSDERM. Q3D [facility] Last Admin: 05/28/18 14:31 Dose: 25 mcg Gabapentin (Neurontin) 100 mg PO TIDCM [facility] Last Admin: 05/30/18 12:31 Dose: 100 mg Guaifenesin (Mucinex) 600 mg PO BID [facility] Last Admin: 05/30/18 08:25 Dose: 600 mg Hydrochlorothiazide (Hctz) 25 mg PO DAILY [facility] Last Admin: 05/30/18 12:30 Dose: 25 mg Lisinopril (Zestril) 20 mg PO DAILY [facility] Last Admin: 05/30/18 08:23 Dose: Not Given Magnesium Hydroxide (Milk Of Magnesia) 30 ml PO .PRN X 1 PRN PRN Reason: Constipation [facility]) [facility] Admin: 05/30/18 08:25 Dose: 1 tablet Nutritional Formula (Mac - [place] Flavor) [facility] Last Admin: 05/30/18 08:25 Dose: 1 packet Oxycodone HCl (Oxyir) 5 mg PO Q6H PRN PRN PRN Reason: PAIN Last Admin: 05/30/18 08:26 Dose: 5 mg Pantoprazole Sodium (Protonix) 20 mg PO DAILY [facility] Last Admin: 05/30/18 08:26 Dose: 20 mg Senna/Docusate Sodium (Senokot-S, Marcie-Colace) 2 tablet PO BID PRN PRN Reason: CONSTIPATION Tamsulosin HCl (Flomax) 0.4 mg PO DAILY@1730 [facility] Last Admin: 05/29/18 17:39 Dose: 0.4 mg Tizanidine HCl (Zanaflex) 4 mg PO Q8H PRN PRN PRN Reason: MUSCLE SPASM Last Admin: 05/29/18 14:24 Dose: 4 mg Medical Necessity - Tobacco Use Smoking Status: Current every day smoker Assessment/Plan All Active Problems Fall (Resolved) Rhabdomyolysis (Resolved) Debility status post fall resulting in right hip fracture status post ORIF 05/12/18 and consequent epidural hematoma in his thoracic spine status post evacuation laminectomy 05/15/18. This is all complicated by a history of ankylosing spondylitis, chronic back pain and alcohol use. Goal of rehab is tenriism of previous level of functional independence. Plan: Physical therapy for transfers, he is nonweightbearing. Occupational Therapy for ADLs PRN analgesics Bowel protocol DVT prophylaxis: Transfer orders recommended Lovenox however given his thoracic hematoma and ongoing back pain we will limit his DVT prophylaxis to SCDs. Given platelet count (149)will continue to hold on starting Lovenox at this time, will re-address in the next day or two. Encourage alcohol abstention Continue antihypertensives Proton pump inhibitor Urinary retention: Louise catheter for now. Constipation: Bowel protocol Back pain: Repeat CT of his thoracic spine to increase fentanyl patch May removed janae from right hip 2 weeks after surgery - janae removed, incision is well approximated is C/D, no redness or edema noted. MRI brain -> shows resolution of PRES will not restart Keppra at this time Get out of bed and into a chair an hour in the morning and an hour in the afternoon
--- NOTE | 2018-05-30 14:28 | NURSING ---
Was asked to assess a small bleeding area near the anal opening. there is a small crease noted that had drained a small amount of blood earlier per LACI Díaz. the opening appears to be either hidradenitis or a small pierce-rectal abscess. does not appear to be grossly infected. will monitor as needed.
--- NOTE | 2018-05-30 14:30 | PCM.PROGNOTE ---
Subjective: Chief complaint: Follow-up after consultation for medical management after admission to inpatient rehab unit. Patient seen and examined. No acute events overnight. Upper back pain is manageable but getting worse with ambulation. He still have no sensation from umbilicus down to both feet. Denied abdominal pain, nausea or vomiting. His vital signs are stable. - Physical Exam General: Alert, Oriented x3, Cooperative, No apparent distress HEENT: Atraumatic, PERRLA, EOMI, Normocephalic Oral: Moist Mucosa, No Gingival or Mucosal Lesions/ Ulcerations Neck: Supple, No JVD, Negative Carotid Bruits, Trachea Midline, Thyroid Normal Size and Texture Lungs: Clear to auscultation, No rhonchi, No wheeze, No rales, Diminished Cardiovascular: Regular rate, Regular Rhythm, Normal S1, Normal S2, PMI Normal Abdomen: Bowel Sounds Present, Soft, Non Tender, Non-Distended, No Hepato-splenomegaly Extremities: No clubbing, No cyanosis Skin: No rashes, No breakdown Lymphatic: No Cervical, Supraclavicular, or Inguinal Adenopathy Neurological: Cranial nerves II-XII grossly intact, - - Paraplegia, decreased sensation to light touch of both lower extremities. Psych/Mental Status: Normal Affect, Appropriate, Alert and oriented to time, place, person, mood and affect Vital Signs Temp Pulse Resp BP Pulse Ox 98.0 F 88 17 104/67 97 05/30/18 07:00 05/30/18 09:00 05/30/18 07:00 05/30/18 09:00 05/30/18 07:00 Oxygen Delivery Method Room Air Weight: 169 lb Body Mass Index (BMI) 30.8 Intake and Output for Last 24 Hours 05/28/18 05/29/18 05/30/18 23:59 23:59 23:59 Intake Total 1390 / 1390 2070 / 2070 1080 / 1080 Output Total 4050 / 4050 3075 / 3075 1757 / 1757 Balance -2660 / -2660 -1005 / -1005 -677 / -677 Medical Necessity - Tobacco Use Smoking Status: Current every day smoker Assessment/Plan All Active Problems Fall (Resolved) Rhabdomyolysis (Resolved) This is a 62 years old male patient was admitted to inpatient rehab unit after he suffered acute thoracic cord compression with nerve impingement from epidural hematoma at T4 T10 level secondary to mechanical fall and also suffered new onset seizure and a right angulated comminuted and impacted fracture of the right femur. #1 acute thoracic compression/epidural hematoma from T4-T10 with recent T8 fracture: Status post thoracic spine fusion, drainage of the epidural hematoma. Patient is on Duragesic patch for pain as well as OxyIR as needed for pain. His vital signs are stable. 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 Plan to continue same treatment, PT OT according to rehab team. #2 right angulated comminuted intertrochanteric right hip fracture: Status post right hip cephalomedullary nail. Patient has been nonambulatory because of paraplegia. Right hip pain is manageable. #3 new onset seizure: This happened when the patient was admitted to this hospital before transfer to [facility]. He has no seizures since then. He is not on any antiseizure medications. #4 hypertension: Blood pressure stable, continue lisinopril and HCTZ. #5 paraplegia: Supportive treatment, PT OT according to rehab team. #6 history of alcohol abuse: No evidence of alcohol withdrawal. Vitals are stable. #7 DVT prophylaxis: SCDs. This note was generated with [employer] dictation software. It may contain incorrect words, spelling, and punctuation that were not noted in checking the note before signing. Code Visit Inpatient E&M: 45817 Subs Hosp L2
--- NOTE | 2018-05-30 14:41 | PN_ITS ---
Subjective: Chief complaint: Follow-up after consultation for medical management after admission to inpatient rehab unit. Patient seen and examined. No acute events overnight. Upper back pain is manageable but getting worse with ambulation. He still have no sensation from umbilicus down to both feet. Denied abdominal pain, nausea or vomiting. His vital signs are stable. - Physical Exam General: Alert, Oriented x3, Cooperative, No apparent distress HEENT: Atraumatic, PERRLA, EOMI, Normocephalic Oral: Moist Mucosa, No Gingival or Mucosal Lesions/ Ulcerations Neck: Supple, No JVD, Negative Carotid Bruits, Trachea Midline, Thyroid Normal Size and Texture Lungs: Clear to auscultation, No rhonchi, No wheeze, No rales, Diminished Cardiovascular: Regular rate, Regular Rhythm, Normal S1, Normal S2, PMI Normal Abdomen: Bowel Sounds Present, Soft, Non Tender, Non-Distended, No Hepato- splenomegaly Extremities: No clubbing, No cyanosis Skin: No rashes, No breakdown Lymphatic: No Cervical, Supraclavicular, or Inguinal Adenopathy Neurological: Cranial nerves II-XII grossly intact, - - Paraplegia, decreased sensation to light touch of both lower extremities. Psych/Mental Status: Normal Affect, Appropriate, Alert and oriented to time, pl michael, person, mood and affect Vital Signs Temp Pulse Resp BP Pulse Ox 98.0 F 88 17 104/67 97 05/30/18 07:00 05/30/18 09:00 05/30/18 07:00 05/30/18 09:00 05/30/18 07:00 Oxygen Delivery Method Room Air Weight: 169 lb Body Mass Index (BMI) 30.8 Intake and Output for Last 24 Hours 05/28/18 05/29/18 05/30/18 23:59 23:59 23:59 Intake Total 1390 / 1390 2070 / 2070 1080 / 1080 Output Total 4050 / 4050 3075 / 3075 1757 / 1757 Balance -2660 / -2660 -1005 / -1005 -677 / -677 Medical Necessity - Tobacco Use Smoking Status: Current every day smoker Assessment/Plan All Active Problems Fall (Resolved) Rhabdomyolysis (Resolved) This is a 62 years old male patient was admitted to inpatient rehab unit after he suffered acute thoracic cord compression with nerve impingement from epidural hematoma at T4 T10 level secondary to mechanical fall and also suffered new onset seizure and a right angulated comminuted and impacted fracture of the right femur. #1 acute thoracic compression/epidural hematoma from T4-T10 with recent T8 fracture: Status post thoracic spine fusion, drainage of the epidural hematoma. Patient is on Duragesic patch for pain as well as OxyIR as needed for pain. His vital signs are stable. 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 Plan to continue same treatment, PT OT according to rehab team. #2 right angulated comminuted intertrochanteric right hip fracture: Status post right hip cephalomedullary nail. Patient has been nonambulatory because of paraplegia. Right hip pain is manageable. #3 new onset seizure: This happened when the patient was admitted to this hospital before transfer to [facility]. He has no seizures since then. He is not on any antiseizure medications. #4 hypertension: Blood pressure stable, continue lisinopril and HCTZ. #5 paraplegia: Supportive treatment, PT OT according to rehab team. #6 history of alcohol abuse: No evidence of alcohol withdrawal. Vitals are stable. #7 DVT prophylaxis: SCDs. This note was generated with [employer] dictation software. It may contain incorrect words, spelling, and punctuation that were not noted in checking the note before signing. Code Visit Inpatient E&M: 79927 Subs Hosp L2
[2018-05-30] MEDS: Tamsulosin HCl 0.4 MG Capsule PO (17:49)
[2018-05-30 22:00] VITALS: BP 134/62; PULSE 88; RESP 18; TEMP 36.9; O2SAT 97
--- NOTE | 2018-05-31 02:32 | NURSING ---
Reviewed and agree with [employer]/GARDENER documentation and FIMs charting.
[2018-05-31] MEDS: Menthol/Lanolin/Calamine/Znox 113 GM Tube 1 APPLIC TOPICAL ×3 (06:56→22:39)
[2018-05-31] MEDS: oxyCODONE 5 MG Tablet PO ×2 (06:58→22:38)
[2018-05-31] MEDS: guaiFENesin 600 MG Tablet PO ×2 (07:48→22:38)
[2018-05-31] MEDS: Pantoprazole Sodium 20 MG Tablet PO (07:48)
[2018-05-31] MEDS: Lisinopril 20 MG Tablet PO (07:48)
[2018-05-31] MEDS: Multivitamins,Therapeutic Tablet 1 TABLET PO (07:49)
[2018-05-31] MEDS: Escitalopram Oxalate 10 MG Tablet PO (07:49)
[2018-05-31] MEDS: hydroCHLOROthiazide 25 MG Tablet PO (07:49)
[2018-05-31] MEDS: Gabapentin 100 MG Capsule PO ×3 (07:49→17:03)
[2018-05-31] MEDS: tiZANidine HCl 2 MG Tablet 4 MG PO (07:52)
[2018-05-31 10:00] VITALS: BP 122/70; PULSE 87; RESP 17; TEMP 36.9; O2SAT 94
[2018-05-31] MEDS: fentaNYL 25 MCG Patch TRANSDERM. (14:48)
--- NOTE | 2018-05-31 16:37 | CASEMGMT ---
Social Work Spoke with patient in room to collaborate on discharge planning. Patient aware that medicare days will be up on 06/10/18 and that at this time the team is recommending for patient to transition to a usp facility at time of discharge for continued therapy services. Patient is agreeable to recommendation and is choosing [facility] ([facility]) as first choice. This rn social services leaving list of other facilities as well in the event that [facility] does not have an opening or is unable to accept. Patient aware that this rn social services will make referral when it is closer to 06/10/18. Patient to have team meeting on 06/02/18. Support given. Will continue to follow. HASEEB Stahl, DRUG AND ALCOHOL COUNSELOR
[2018-05-31] MEDS: Tamsulosin HCl 0.4 MG Capsule PO (17:03)
[2018-05-31 22:00] VITALS: BP 99/54; PULSE 93; RESP 16; TEMP 36.7; O2SAT 95
[2018-06-01] MEDS: Menthol/Lanolin/Calamine/Znox 113 GM Tube 1 APPLIC TOPICAL ×3 (06:20→20:46)
[2018-06-01 07:00] VITALS: BP 111/52; PULSE 74; RESP 18; TEMP 36.4; O2SAT 97
[2018-06-01] MEDS: Pantoprazole Sodium 20 MG Tablet PO (10:38)
[2018-06-01] MEDS: Gabapentin 100 MG Capsule PO ×3 (10:38→17:27)
[2018-06-01] MEDS: guaiFENesin 600 MG Tablet PO ×2 (10:38→20:45)
[2018-06-01] MEDS: Lisinopril 20 MG Tablet PO (10:38)
[2018-06-01] MEDS: hydroCHLOROthiazide 25 MG Tablet PO (10:38)
[2018-06-01] MEDS: Multivitamins,Therapeutic Tablet 1 TABLET PO (10:39)
[2018-06-01] MEDS: Escitalopram Oxalate 10 MG Tablet PO (10:39)
[2018-06-01] MEDS: tiZANidine HCl 2 MG Tablet 4 MG PO ×2 (10:41→20:44)
--- NOTE | 2018-06-01 13:09 | PN.NEURO_ITS ---
Addendum entered and electronically signed by JUAN Ge 06/01/18 17:01: Original Note: Subjective: Patient seen, no new complaints. Tolerating therapy, he has selected the SNF he would like to go to after inpatient rehab for additional therapy. Will team him tomorrow and discuss when would be appropriate for him to transition. He is tolerating regular diet. He continues to have a alford in place and is incontinent of bowels. Will schedule an out patient urology appointment on discharge to SNF. - Physical Exam General: Alert, Oriented x3, Cooperative HEENT: Atraumatic, PERRLA, EOMI, Normocephalic Neck: Supple, No JVD, Negative Carotid Bruits Lungs: Clear to auscultation, Normal air movement Cardiovascular: Regular rate, No murmurs Abdomen: Bowel Sounds Present, Soft, Non Tender Extremities: No edema, Capillary Refill Less than 3 Seconds Skin: No rashes, No breakdown Musculoskeletal: No Tenderness to Palpation of Joints or Extremities Neurological: Cranial nerves II-XII grossly intact Psych/Mental Status: Normal Affect, Appropriate, Alert and oriented to time, place, person, mood and affect Vital Signs Temp Pulse Resp BP Pulse Ox 97.6 F L 74 18 111/52 L 97 06/01/18 07:00 06/01/18 07:00 06/01/18 07:00 06/01/18 07:00 06/01/18 07:00 Oxygen Delivery Method Room Air Weight: 76.657 kg Body Mass Index (BMI) 30.8 Intake and Output for Last 24 Hours 05/30/18 05/31/18 06/01/18 23:59 23:59 23:59 Intake Total 1650 / 1650 1040 / 1040 580 / 580 Output Total 4507 / 4507 2200 / 2200 825 / 825 Balance -2857 / -2857 -1160 / -1160 -245 / -245 Active Medications Bisacodyl (Dulcolax) 10 mg RECTAL .PRN X 1 PRN PRN Reason: Constipation Calamine/Phenol (Calmoseptine Ointment) 1 applic TOPICAL TID [facility]; Protocol Last Admin: 06/01/18 06:20 Dose: 1 applicatio Emollient Ointment (Eucerin Intensive Repair) 1 applic TOPICAL BID@2200,0600 [facility]; Protocol Last Admin: 06/01/18 06:20 Dose: 1 applicatio Ergocalciferol (Vitamin D) 50,000 unit PO Q7D [facility] Last Admin: 05/29/18 08:27 Dose: 50,000 unit Escitalopram Oxalate (Lexapro) 10 mg PO DAILY [facility] Last Admin: 06/01/18 10:39 Dose: 10 mg Fentanyl (Duragesic Patch) 25 mcg TRANSDERM. Q3D [facility] Last Admin: 05/31/18 14:48 Dose: 25 mcg Gabapentin (Neurontin) 100 mg PO TIDCM [facility] Last Admin: 06/01/18 12:04 Dose: 100 mg Guaifenesin (Mucinex) 600 mg PO BID [facility] Last Admin: 06/01/18 10:38 Dose: 600 mg Hydrochlorothiazide (Hctz) 25 mg PO DAILY [facility] Last Admin: 06/01/18 10:38 Dose: 25 mg Lisinopril (Zestril) 20 mg PO DAILY [facility] Last Admin: 06/01/18 10:38 Dose: 20 mg Magnesium Hydroxide (Milk Of Magnesia) 30 ml PO .PRN X 1 PRN PRN Reason: Constipation [facility]) [facility] Last Admin: 06/01/18 10:39 Dose: 1 tablet Nutritional Formula (Mac - [place] Flavor) [facility] Last Admin: 06/01/18 10:38 Dose: 1 packet Oxycodone HCl (Oxyir) 5 mg PO Q6H PRN PRN PRN Reason: PAIN Last Admin: 05/31/18 22:38 Dose: 5 mg Pantoprazole Sodium (Protonix) 20 mg PO DAILY [facility] Last Admin: 06/01/18 10:38 Dose: 20 mg Senna/Docusate Sodium (Senokot-S, Marcie-Colace) 2 tablet PO BID PRN PRN Reason: CONSTIPATION Tamsulosin HCl (Flomax) 0.4 mg PO DAILY@1730 [facility] Last Admin: 05/31/18 17:03 Dose: 0.4 mg Tizanidine HCl (Zanaflex) 4 mg PO Q8H PRN PRN PRN Reason: MUSCLE SPASM Last Admin: 06/01/18 10:41 Dose: 4 mg Medical Necessity - Tobacco Use Smoking Status: Current every day smoker Assessment/Plan All Active Problems Fall (Resolved) Rhabdomyolysis (Resolved) Debility status post fall resulting in right hip fracture status post ORIF 05/12/18 and consequent epidural hematoma in his thoracic spine status post evacuation laminectomy 05/15/18. This is all complicated by a history of ankylosing spondylitis, chronic back pain and alcohol use. Goal of rehab is latter-day of previous level of functional independence. Plan: Physical therapy for transfers, he is nonweightbearing. Occupational Therapy for ADLs PRN analgesics Bowel protocol DVT prophylaxis: Transfer orders recommended Lovenox however given his thoracic hematoma and ongoing back pain we will limit his DVT prophylaxis to SCDs. Given platelet count (149)will continue to hold on starting Lovenox at this time, will re-address in the next day or two. Encourage alcohol abstention Continue antihypertensives Proton pump inhibitor Urinary retention: Alford catheter for now. Constipation: Bowel protocol Back pain: Repeat CT of his thoracic spine to increase fentanyl patch May removed janae from right hip 2 weeks after surgery - janae removed, incision is well approximated is C/D, no redness or edema noted. MRI brain -> shows resolution of PRES will not restart Keppra at this time Get out of bed and into a chair an hour in the morning and an hour in the afternoon
[2018-06-01] MEDS: Tamsulosin HCl 0.4 MG Capsule PO (17:27)
[2018-06-01 19:42] VITALS: BP 124/68; PULSE 116; RESP 18; TEMP 36.8; O2SAT 95
[2018-06-02] MEDS: Menthol/Lanolin/Calamine/Znox 113 GM Tube 1 APPLIC TOPICAL ×3 (06:32→23:24)
[2018-06-02 07:57] VITALS: BP 133/81; PULSE 71; RESP 16; TEMP 36.7; O2SAT 98
[2018-06-02] MEDS: Multivitamins,Therapeutic Tablet 1 TABLET PO (10:28)
[2018-06-02] MEDS: Gabapentin 100 MG Capsule PO ×3 (10:28→17:40)
[2018-06-02] MEDS: Escitalopram Oxalate 10 MG Tablet PO (10:28)
[2018-06-02] MEDS: guaiFENesin 600 MG Tablet PO ×2 (10:28→23:24)
[2018-06-02] MEDS: hydroCHLOROthiazide 25 MG Tablet PO (10:28)
[2018-06-02] MEDS: Pantoprazole Sodium 20 MG Tablet PO (10:28)
--- NOTE | 2018-06-02 10:29 | PCM.PN.NEU ---
Subjective: Staffed in team meeting. Family was not at bedside, questions answered. With Physical therapy, his transfers vary depending on pain level and physical stamina. He uses the sliding board with an assist of 1, with rolling he requires the assist of 1 - 2 depending on pain that day, his wheelchair mobility has improved greatly, he is able to wheel himself down to the therapy room now. He is still unable to stand or take a step, he is starting to get some feeling and mobility back in his legs. With Occupational therapy, he requires 2 persons to get into the shower. He is max assist for bathing, he is setup level for personal grooming, washing his face, brushing his teeth. He is max assist for toileting and lower body bathing and dressing. With Nursing his back and hip incision is C/D/I, the incision is well approximated, no edema or redness noted along incision line. Will re-team him again on 06/10/18. - Physical Exam General: Alert, Oriented x3, Cooperative HEENT: Atraumatic, PERRLA, EOMI, Normocephalic Neck: Supple, No JVD, Negative Carotid Bruits Lungs: Clear to auscultation, Normal air movement Cardiovascular: Regular rate, No murmurs Abdomen: Bowel Sounds Present, Soft, Non Tender Extremities: No edema, Capillary Refill Less than 3 Seconds Skin: No rashes, No breakdown Musculoskeletal: No Tenderness to Palpation of Joints or Extremities Neurological: Cranial nerves II-XII grossly intact Psych/Mental Status: Normal Affect, Appropriate, Alert and oriented to time, place, person, mood and affect Vital Signs Temp Pulse Resp BP Pulse Ox 98.1 F 71 16 133/81 H 98 06/02/18 07:57 06/02/18 07:57 06/02/18 07:57 06/02/18 07:57 06/02/18 07:57 Oxygen Delivery Method Room Air Weight: 75 kg Body Mass Index (BMI) 30.8 Intake and Output for Last 24 Hours 05/31/18 06/01/18 06/02/18 23:59 23:59 23:59 Intake Total 1040 / 1040 1420 / 1420 1200 / 1200 Output Total 2200 / 2200 1425 / 1425 1600 / 1600 Balance -1160 / -1160 -5 / -5 -400 / -400 Active Medications Bisacodyl (Dulcolax) 10 mg RECTAL .PRN X 1 PRN PRN Reason: Constipation Calamine/Phenol (Calmoseptine Ointment) 1 applic TOPICAL TID [facility]; Protocol Last Admin: 06/02/18 06:32 Dose: 1 applicatio Emollient Ointment (Eucerin Intensive Repair) 1 applic TOPICAL BID@2200,0600 [facility]; Protocol Last Admin: 06/02/18 06:31 Dose: 1 applicatio Ergocalciferol (Vitamin D) 50,000 unit PO Q7D [facility] Last Admin: 05/29/18 08:27 Dose: 50,000 unit Escitalopram Oxalate (Lexapro) 10 mg PO DAILY [facility] Last Admin: 06/01/18 10:39 Dose: 10 mg Fentanyl (Duragesic Patch) 25 mcg TRANSDERM. Q3D [facility] Last Admin: 05/31/18 14:48 Dose: 25 mcg Gabapentin (Neurontin) 100 mg PO TIDCM [facility] Last Admin: 06/01/18 17:27 Dose: 100 mg Guaifenesin (Mucinex) 600 mg PO BID [facility] Last Admin: 06/01/18 20:45 Dose: 600 mg Hydrochlorothiazide (Hctz) 25 mg PO DAILY [facility] Last Admin: 06/01/18 10:38 Dose: 25 mg Lisinopril (Zestril) 20 mg PO DAILY [facility] Last Admin: 06/01/18 10:38 Dose: 20 mg Magnesium Hydroxide (Milk Of Magnesia) 30 ml PO .PRN X 1 PRN PRN Reason: Constipation [facility] Admin: 06/01/18 10:39 Dose: 1 tablet Nutritional Formula (Mac - [place] Flavor) [facility] Last Admin: 06/01/18 17:26 Dose: 1 packet Oxycodone HCl (Oxyir) 5 mg PO Q6H PRN PRN PRN Reason: PAIN Last Admin: 05/31/18 22:38 Dose: 5 mg Pantoprazole Sodium (Protonix) 20 mg PO DAILY [facility] Last Admin: 06/01/18 10:38 Dose: 20 mg Senna/Docusate Sodium (Senokot-S, Marcie-Colace) 2 tablet PO BID PRN PRN Reason: CONSTIPATION Tamsulosin HCl (Flomax) 0.4 mg PO DAILY@1730 [facility] Last Admin: 06/01/18 17:27 Dose: 0.4 mg Tizanidine HCl (Zanaflex) 4 mg PO Q8H PRN PRN PRN Reason: MUSCLE SPASM Last Admin: 06/01/18 20:44 Dose: 4 mg Medical Necessity - Tobacco Use Smoking Status: Current every day smoker Assessment/Plan All Active Problems Fall (Resolved) Rhabdomyolysis (Resolved) Debility status post fall resulting in right hip fracture status post ORIF 05/12/18 and consequent epidural hematoma in his thoracic spine status post evacuation laminectomy 05/15/18. This is all complicated by a history of ankylosing spondylitis, chronic back pain and alcohol use. Goal of rehab is tenriism of previous level of functional independence. Plan: Physical therapy for transfers, he is nonweightbearing. Occupational Therapy for ADLs PRN analgesics Bowel protocol DVT prophylaxis: Transfer orders recommended Lovenox however given his thoracic hematoma and ongoing back pain we will limit his DVT prophylaxis to SCDs. Given platelet count (149)will continue to hold on starting Lovenox at this time, will re-address in the next day or two. Encourage alcohol abstention Continue antihypertensives Proton pump inhibitor Urinary retention: Louise catheter for now. Constipation: Bowel protocol Back pain: Repeat CT of his thoracic spine to increase fentanyl patch May removed janae from right hip 2 weeks after surgery - janae removed, incision is well approximated is C/D, no redness or edema noted. MRI brain -> shows resolution of PRES will not restart Keppra at this time Get out of bed and into a chair an hour in the morning and an hour in the afternoon
[2018-06-02] MEDS: tiZANidine HCl 2 MG Tablet 4 MG PO (10:30)
--- NOTE | 2018-06-02 10:41 | PN.NEURO_ITS ---
Subjective: Staffed in team meeting. Family was not at bedside, questions answered. With Physical therapy, his transfers vary depending on pain level and physical stamina. He uses the sliding board with an assist of 1, with rolling he requires the assist of 1 - 2 depending on pain that day, his wheelchair mobility has improved greatly, he is able to wheel himself down to the therapy room now. He is still unable to stand or take a step, he is starting to get some feeling and mobility back in his legs. With Occupational therapy, he requires 2 persons to g et into the shower. He is max assist for bathing, he is setup level for personal grooming, washing his face, brushing his teeth. He is max assist for toileting and lower body bathing and dressing. With Nursing his back and hip incision is C/D/I, the incision is well approximated, no edema or redness noted along incision line. Will re-team him again on 06/10/18. - Physical Exam General: Alert, Oriented x3, Cooperative HEENT: Atraumatic, PERRLA, EOMI, Normocephalic Neck: Supple, No JVD, Negative Carotid Bruits Lungs: Clear to auscultation, Normal air movement Cardiovascular: Regular rate, No murmurs Abdomen: Bowel Sounds Present, Soft, Non Tender Extremities: No edema, Capillary Refill Less than 3 Seconds Skin: No rashes, No breakdown Musculoskeletal: No Tenderness to Palpation of Joints or Extremities Neurological: Cranial nerves II-XII grossly intact Psych/Mental Status: Normal Affect, Appropriate, Alert and oriented to time, place, person, mood and affect Vital Signs Temp Pulse Resp BP Pulse Ox 98.1 F 71 16 133/81 H 98 06/02/18 07:57 06/02/18 07:57 06/02/18 07:57 06/02/18 07:57 06/02/18 07:57 Oxygen Delivery Method Room Air Weight: 75 kg Body Mass Index (BMI) 30.8 Intake and Output for Last 24 Hours 05/31/18 06/01/18 06/02/18 23:59 23:59 23:59 Intake Total 1040 / 1040 1420 / 1420 1200 / 1200 Output Total 2200 / 2200 1425 / 1425 1600 / 1600 Balance -1160 / -1160 -5 / -5 -400 / -400 Active Medications Bisacodyl (Dulcolax) 10 mg RECTAL .PRN X 1 PRN PRN Reason: Constipation Calamine/Phenol (Calmoseptine Ointment) 1 applic TOPICAL TID [facility]; Protocol Last Admin: 06/02/18 06:32 Dose: 1 applicatio Emollient Ointment (Eucerin Intensive Repair) 1 applic TOPICAL BID@2200,0600 [facility]; Protocol Last Admin: 06/02/18 06:31 Dose: 1 applicatio Ergocalciferol (Vitamin D) 50,000 unit PO Q7D [facility] Last Admin: 05/29/18 08:27 Dose: 50,000 unit Escitalopram Oxalate (Lexapro) 10 mg PO DAILY [facility] Last Admin: 06/01/18 10:39 Dose: 10 mg Fentanyl (Duragesic Patch) 25 mcg TRANSDERM. Q3D [facility] Last Admin: 05/31/18 14:48 Dose: 25 mcg Gabapentin (Neurontin) 100 mg PO TIDCM [facility] Last Admin: 06/01/18 17:27 Dose: 100 mg Guaifenesin (Mucinex) 600 mg PO BID [facility] Last Admin: 06/01/18 20:45 Dose: 600 mg Hydrochlorothiazide (Hctz) 25 mg PO DAILY [facility] Last Admin: 06/01/18 10:38 Dose: 25 mg Lisinopril (Zestril) 20 mg PO DAILY [facility] Last Admin: 06/01/18 10:38 Dose: 20 mg Magnesium Hydroxide (Milk Of Magnesia) 30 ml PO .PRN X 1 PRN PRN Reason: Constipation [facility]ivit[facility] ([facility]ivitamin) [facility] Last Admin: 06/01/18 10:39 Dose: 1 tablet Nutritional Formula (Mac - [place] Flavor) [facility] Last Admin: 06/01/18 17:26 Dose: 1 packet Oxycodone HCl (Oxyir) 5 mg PO Q6H PRN PRN PRN Reason: PAIN Last Admin: 05/31/18 22:38 Dose: 5 mg Pantoprazole Sodium (Protonix) 20 mg PO DAILY [facility] Last Admin: 06/01/18 10:38 Dose: 20 mg Senna/Docusate Sodium (Senokot-S, Marcie-Colace) 2 tablet PO BID PRN PRN Reason: CONSTIPATION Tamsulosin HCl (Flomax) 0.4 mg PO DAILY@1730 [facility] Last Admin: 06/01/18 17:27 Dose: 0.4 mg Tizanidine HCl (Zanaflex) 4 mg PO Q8H PRN PRN PRN Reason: MUSCLE SPASM Last Admin: 06/01/18 20:44 Dose: 4 mg Medical Necessity - Tobacco Use Smoking Status: Current every day smoker Assessment/Plan All Active Problems Fall (Resolved) Rhabdomyolysis (Resolved) Debility status post fall resulting in right hip fracture status post ORIF 05/12/18 and consequent epidural hematoma in his thoracic spine status post evacuation laminectomy 05/15/18. This is all complicated by a history of ankylosing spondylitis, chronic back pain and alcohol use. Goal of rehab is hindu of previous level of functional independence. Plan: Physical therapy for transfers, he is nonweightbearing. Occupational Therapy for ADLs PRN analgesics Bowel protocol DVT prophylaxis: Transfer orders recommended Lovenox however given his thoracic hematoma and ongoing back pain we will limit his DVT prophylaxis to SCDs. Given platelet count (149)will continue to hold on starting Lovenox at this time, will re-address in the next day or two. Encourage alcohol abstention Continue antihypertensives Proton pump inhibitor Urinary retention: Louise catheter for now. Constipation: Bowel protocol Back pain: Repeat CT of his thoracic spine to increase fentanyl patch May removed janae from right hip 2 weeks after surgery - janae removed, incision is well approximated is C/D, no redness or edema noted. MRI brain -> shows resolution of PRES will not restart Keppra at this time Get out of bed and into a chair an hour in the morning and an hour in the afternoon
--- NOTE | 2018-06-02 10:55 | CASEMGMT ---
Team meeting held. Patient present, no support person present at this time. Proposed discharge date has been set for 06/10/18. At this time patient is planning to transition to [facility], pending approval. Will make referral to [facility] when it is closer to discharge date. Patient to continue with further care and treatment on the Inpatient Rehab Unit until time of discharge. Support given. Proposed discharge date: 06/10/18 PLAN: Discharge to SNF HASEEB Stahl, REGISTERED ROUTE ASSOCIATE
[2018-06-02] MEDS: Lisinopril 20 MG Tablet PO (11:38)
--- NOTE | 2018-06-02 16:29 | CHAPLAIN ---
Type of Pastoral Visit ___ Initial Visit _x__ Follow-up Visit ___ On-call Visit ___ General Patient Visit ___ Spiritual Assessment ___ Family Conference ___ Bereavement ___ Rapid Response ___ Code Blue ___ Other (describe below) Pastoral Care Referral From _x__ Patient ___ Family ___ Nurse ___ Physician ___ Gear Changer ___ Lighting Adviser ___ Other (describe below) Sacrament/Intervention _x__ Active listening ___ Anointing ___ Mu-Ism ___ Bereavement ___ Communion ___ Loraine exploration ___ _x__ Life review _x__ Prayer ___ Reconciliation ___ Sacrament of Sick _x__ Supportive presence ___ Wedding ___ Other (describe below) Pastoral Comments patient request for follow up; pt has good news to share with justice court judge concerning family and answers to prayer
[2018-06-02] MEDS: Tamsulosin HCl 0.4 MG Capsule PO (17:40)
[2018-06-02] MEDS: oxyCODONE 5 MG Tablet PO (17:49)
[2018-06-02 20:06] VITALS: BP 101/43; PULSE 99; RESP 16; TEMP 36.6; O2SAT 97
[2018-06-03] MEDS: oxyCODONE 5 MG Tablet PO ×2 (00:27→20:18)
[2018-06-03] MEDS: Menthol/Lanolin/Calamine/Znox 113 GM Tube 1 APPLIC TOPICAL ×3 (05:13→20:05)
[2018-06-03] MEDS: Escitalopram Oxalate 10 MG Tablet PO (07:57)
[2018-06-03] MEDS: guaiFENesin 600 MG Tablet PO ×2 (07:57→20:05)
[2018-06-03] MEDS: Multivitamins,Therapeutic Tablet 1 TABLET PO (07:57)
[2018-06-03] MEDS: Pantoprazole Sodium 20 MG Tablet PO (07:57)
[2018-06-03] MEDS: Gabapentin 100 MG Capsule PO ×3 (07:57→17:15)
[2018-06-03] MEDS: hydroCHLOROthiazide 25 MG Tablet PO (07:57)
[2018-06-03] MEDS: tiZANidine HCl 2 MG Tablet 4 MG PO ×2 (07:58→20:05)
[2018-06-03 08:00] VITALS: BP 104/52; PULSE 80; RESP 18; TEMP 36.6; O2SAT 96
--- NOTE | 2018-06-03 14:40 | PCM.PROGNOTE ---
Subjective: Chief complaint: Follow-up after consultation for medical management following admission to inpatient rehab unit. Patient seen and examined. No acute events overnight. Denies any neck pain at this time. Still having some upper back pain. Light touch sensation started to get better. Vital signs are stable. - Physical Exam General: Alert, Oriented x3, Cooperative HEENT: Atraumatic, PERRLA, EOMI, Normocephalic Oral: Moist Mucosa, No Gingival or Mucosal Lesions/ Ulcerations Neck: Supple, No JVD, Negative Carotid Bruits, Trachea Midline, Thyroid Normal Size and Texture Lungs: Clear to auscultation, No rhonchi, No wheeze, No rales, Diminished Cardiovascular: Regular rate, Regular Rhythm, Normal S1, Normal S2 Abdomen: Bowel Sounds Present, Soft, Non Tender, Non-Distended, No Hepato-splenomegaly Extremities: No clubbing, No cyanosis Skin: No rashes, No breakdown Lymphatic: No Cervical, Supraclavicular, or Inguinal Adenopathy Neurological: Cranial nerves II-XII grossly intact, - - Paraplegia, decreased sensation to light touch of both legs, started to improve. Psych/Mental Status: Normal Affect, Appropriate Vital Signs Temp Pulse Resp BP Pulse Ox 97.9 F 80 18 104/52 L 96 06/03/18 08:00 06/03/18 08:00 06/03/18 08:00 06/03/18 08:00 06/03/18 08:00 Oxygen Delivery Method Room Air Weight: 165 lb 5.547 oz Body Mass Index (BMI) 30.8 Intake and Output for Last 24 Hours 06/01/18 06/02/18 06/03/18 23:59 23:59 23:59 Intake Total 1420 / 1420 1400 / 1400 450 / 450 Output Total 1425 / 1425 2850 / 2850 900 / 900 Balance -5 / -5 -1450 / -1450 -450 / -450 Medical Necessity - Tobacco Use Smoking Status: Current every day smoker Assessment/Plan All Active Problems Fall (Resolved) Rhabdomyolysis (Resolved) This is a 62 years old male patient was admitted to inpatient rehab unit after he suffered acute thoracic cord compression with nerve impingement from epidural hematoma at T4 T10 level secondary to mechanical fall and also suffered new onset seizure and a right angulated comminuted and impacted fracture of the right femur. #1 acute thoracic compression/epidural hematoma from T4-T10 with recent T8 fracture: Status post thoracic spine fusion, drainage of the epidural hematoma. Patient is on Duragesic patch for pain as well as OxyIR as needed for pain. His vital signs are stable. Neck pain is getting better, back pain is manageable. 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 Plan to continue same treatment, PT OT according to rehab team. #2 right angulated comminuted intertrochanteric right hip fracture: Status post right hip cephalomedullary nail. Patient has been nonambulatory because of paraplegia. Right hip pain is manageable. #3 new onset seizure: This happened when the patient was admitted to this hospital before transfer to [facility]. He has no seizures since then. He is not on any antiseizure medications. #4 hypertension: Blood pressure stable, continue lisinopril and HCTZ. #5 paraplegia: Supportive treatment, PT OT according to rehab team. #6 history of alcohol abuse: No evidence of alcohol withdrawal. Vitals are stable. #7 DVT prophylaxis: SCDs. This note was generated with [employer] dictation software. It may contain incorrect words, spelling, and punctuation that were not noted in checking the note before signing. Code Visit Inpatient E&M: 53458 Subs Hosp L2
--- NOTE | 2018-06-03 14:44 | PN_ITS ---
Subjective: Chief complaint: Follow-up after consultation for medical management following admission to inpatient rehab unit. Patient seen and examined. No acute events overnight. Denies any neck pain at this time. Still having some upper back pain. Light touch sensation started to get better. Vital signs are stable. - Physical Exam General: Alert, Oriented x3, Cooperative HEENT: Atraumatic, PERRLA, EOMI, Normocephalic Oral: Moist Mucosa, No Gingival or Mucosal Lesions/ Ulcerations Neck: Supple, No JVD, Negative Carotid Bruits, Trachea Midline, Thyroid Normal Size and Texture Lungs: Clear to auscultation, No rhonchi, No wheeze, No rales, Diminished Cardiovascular: Regular rate, Regular Rhythm, Normal S1, Normal S2 Abdomen: Bowel Sounds Present, Soft, Non Tender, Non-Distended, No Hepato- splenomegaly Extremities: No clubbing, No cyanosis Skin: No rashes, No breakdown Lymphatic: No Cervical, Supraclavicular, or Inguinal Adenopathy Neurological: Cranial nerves II-XII grossly intact, - - Paraplegia, decreased sensation to light touch of both legs, started to improve. Psych/Mental Status: Normal Affect, Appropriate Vital Signs Temp Pulse Resp BP Pulse Ox 97.9 F 80 18 104/52 L 96 06/03/18 08:00 06/03/18 08:00 06/03/18 08:00 06/03/18 08:00 06/03/18 08:00 Oxygen Delivery Method Room Air Weight: 165 lb 5.547 oz Body Mass Index (BMI) 30.8 Intake and Output for Last 24 Hours 06/01/18 06/02/18 06/03/18 23:59 23:59 23:59 Intake Total 1420 / 1420 1400 / 1400 450 / 450 Output Total 1425 / 1425 2850 / 2850 900 / 900 Balance -5 / -5 -1450 / -1450 -450 / -450 Medical Necessity - Tobacco Use Smoking Status: Current every day smoker Assessment/Plan All Active Problems Fall (Resolved) Rhabdomyolysis (Resolved) This is a 62 years old male patient was admitted to inpatient rehab unit after he suffered acute thoracic cord compression with nerve impingement from epidural hematoma at T4 T10 level secondary to mechanical fall and also suffered new onset seizure and a right angulated comminuted and impacted fracture of the right femur. #1 acute thoracic compression/epidural hematoma from T4-T10 with recent T8 fracture: Status post thoracic spine fusion, drainage of the epidural hematoma. Patient is on Duragesic patch for pain as well as OxyIR as needed for pain. His vital signs are stable. Neck pain is getting better, back pain is manageable. 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 Plan to continue same treatment, PT OT according to rehab team. #2 right angulated comminuted intertrochanteric right hip fracture: Status post right hip cephalomedullary nail. Patient has been nonambulatory because of paraplegia. Right hip pain is manageable. #3 new onset seizure: This happened when the patient was admitted to this hospital before transfer to [facility]. He has no seizures since then. He is not on any antiseizure medications. #4 hypertension: Blood pressure stable, continue lisinopril and HCTZ. #5 paraplegia: Supportive treatment, PT OT according to rehab team. #6 history of alcohol abuse: No evidence of alcohol withdrawal. Vitals are stable. #7 DVT prophylaxis: SCDs. This note was generated with [employer] dictation software. It may contain incorrect words, spelling, and punctuation that were not noted in checking the note before signing. Code Visit Inpatient E&M: 50631 Subs Hosp L2
[2018-06-03] MEDS: fentaNYL 25 MCG Patch TRANSDERM. (14:54)
[2018-06-03] MEDS: Tamsulosin HCl 0.4 MG Capsule PO (17:15)
[2018-06-03 20:04] VITALS: BP 128/66; PULSE 92; RESP 18; TEMP 36.9; O2SAT 96
[2018-06-04] MEDS: tiZANidine HCl 2 MG Tablet 4 MG PO ×2 (05:38→21:07)
[2018-06-04] MEDS: oxyCODONE 5 MG Tablet PO (05:39)
[2018-06-04] MEDS: Menthol/Lanolin/Calamine/Znox 113 GM Tube 1 APPLIC TOPICAL ×3 (05:41→21:08)
[2018-06-04 07:00] VITALS: BP 114/67; PULSE 98; RESP 16; TEMP 36.4; O2SAT 97
[2018-06-04] MEDS: Multivitamins,Therapeutic Tablet 1 TABLET PO (09:21)
[2018-06-04] MEDS: Lisinopril 20 MG Tablet PO (09:22)
[2018-06-04] MEDS: Escitalopram Oxalate 10 MG Tablet PO (09:22)
[2018-06-04] MEDS: Pantoprazole Sodium 20 MG Tablet PO (09:22)
[2018-06-04] MEDS: guaiFENesin 600 MG Tablet PO ×2 (09:22→21:07)
[2018-06-04] MEDS: hydroCHLOROthiazide 25 MG Tablet PO (09:22)
[2018-06-04] MEDS: Gabapentin 100 MG Capsule PO ×3 (09:22→16:16)
[2018-06-04] MEDS: Tamsulosin HCl 0.4 MG Capsule PO (16:30)
[2018-06-04 21:22] VITALS: BP 110/58; PULSE 80; RESP 16; TEMP 36.9; O2SAT 95
[2018-06-05] MEDS: Menthol/Lanolin/Calamine/Znox 113 GM Tube 1 APPLIC TOPICAL ×3 (06:30→21:06)
[2018-06-05] MEDS: Gabapentin 100 MG Capsule PO ×3 (07:58→17:57)
[2018-06-05] MEDS: Escitalopram Oxalate 10 MG Tablet PO (07:58)
[2018-06-05] MEDS: guaiFENesin 600 MG Tablet PO ×2 (07:58→21:05)
[2018-06-05] MEDS: Pantoprazole Sodium 20 MG Tablet PO (07:58)
[2018-06-05] MEDS: Multivitamins,Therapeutic Tablet 1 TABLET PO (07:58)
[2018-06-05] MEDS: hydroCHLOROthiazide 25 MG Tablet PO (07:58)
[2018-06-05] MEDS: tiZANidine HCl 2 MG Tablet 4 MG PO ×2 (08:01→21:05)
[2018-06-05 08:32] VITALS: BP 106/59; PULSE 82; RESP 16; TEMP 36.8; O2SAT 96
[2018-06-05] MEDS: Tamsulosin HCl 0.4 MG Capsule PO (17:57)
[2018-06-05 21:03] VITALS: BP 126/73; PULSE 101; RESP 18; TEMP 36.9; O2SAT 96
[2018-06-05] MEDS: oxyCODONE 5 MG Tablet PO (21:17)
[2018-06-06] MEDS: Menthol/Lanolin/Calamine/Znox 113 GM Tube 1 APPLIC TOPICAL ×3 (05:35→21:06)
[2018-06-06 10:00] VITALS: BP 112/72; PULSE 82; RESP 18; TEMP 36.7; O2SAT 96
[2018-06-06] MEDS: hydroCHLOROthiazide 25 MG Tablet PO (10:11)
[2018-06-06] MEDS: Gabapentin 100 MG Capsule PO ×3 (10:11→16:54)
[2018-06-06] MEDS: Multivitamins,Therapeutic Tablet 1 TABLET PO (10:11)
[2018-06-06] MEDS: Escitalopram Oxalate 10 MG Tablet PO (10:11)
[2018-06-06] MEDS: guaiFENesin 600 MG Tablet PO ×2 (10:11→21:08)
[2018-06-06] MEDS: tiZANidine HCl 2 MG Tablet 4 MG PO ×2 (10:12→21:09)
[2018-06-06] MEDS: Pantoprazole Sodium 20 MG Tablet PO (10:12)
[2018-06-06] MEDS: Lisinopril 20 MG Tablet PO (10:12)
[2018-06-06 11:01] LABS: Absolute Lymphocyte Count 1.44 X10^3/ul (0.83-4.51); Absolute Neutrophil Count 5.2 X10^3/uL (2.0-7.7); Basophil# 0.02 X10^3/uL; Basophil% 0.3 % (0-1); Eosinophil# 0.17 X10^3/uL; Eosinophils% 2.2 % (0-5); Hemoglobin 12.2 g/dl (13.0-16.5); Lymphocyte # 1.44 X10^3/ul (4.0); Lymphocyte % 18.7 % (19-41); Mean Corp Hgb Conc 30.5 g/gl (32-36); Mean Corpuscular Hgb 29.6 pg (27.0-32.0); Mean Corpuscular Volume 97.1 fL (80-94); Mean Platelet Vol. 9.9 fl (6.2-12.0); Monocyte# 0.85 X10^3/uL; Neutrophil # 5.17 X10^3/uL (2.7-7.7); Neutrophil % 67.2 % (47-70); Platelet Count 124 K/mm3 (150-450); RBC Distribution Width CV 15.7 % (11.6-14.6); Red Blood Count 4.12 M/mm3 (4.6-6.2); White Blood Count 7.7 K/mm3 (4.4-11.0)
[2018-06-06 11:04] LABS: POSITIVE COUNT NO; POSITIVE DIFFERENTIAL NO; POSITIVE MORPHOLOGY NO
--- NOTE | 2018-06-06 14:58 | CASEMGMT ---
Social Work Referral faxed to [facility]. Telephone call to Connie communicating referral, voicemail left. Connie to get back to this psych social worker. Transfer form initiated. Proposed discharge date: 06/10/18 PLAN: Discharge to [facility], pending appeal. CHEIKH Stahl, [employer] SELECTOR
[2018-06-06] MEDS: fentaNYL 25 MCG Patch TRANSDERM. (15:13)
--- NOTE | 2018-06-06 15:22 | PN_ITS ---
Subjective: Patient is a 62-year-old gentleman returns following a fall during a seizure. He did experience Acute thoracic cord compression/nerve impingement from epidural hematoma from T4-T10 level a right angulated comminuted and impacted fracture of the right femur. Suspected tertiary care center [facility] stabilized and transferred back to [facility] inpatient rehab unit Objective: GENERAL: cooperative HEENT: Atraumatic; moist oral mucosa EYES; Anicteric, Normal Conjunctiva NECK; supple, normal thyroid, no distended JVD. RESPIRATORY: Diminished to auscultation bilaterally, CARDIOVASCULAR: Regular S1 S2, no audible murmurs GI: soft, non-tender, normoactive bowel sounds, : No Renal angle tenderness; EXTREMITIES: No edema, no clubbing, no cyanosis. NEURO: Awake; paraplegic SKIN: No Rash PSYCH; Normal affect Vitals/I&O's: Vital Signs Temp Pulse Resp BP Pulse Ox 98.1 F 82 18 112/72 96 06/06/18 10:00 06/06/18 10:00 06/06/18 10:00 06/06/18 10:00 06/06/18 10:00 Oxygen Delivery Method Room Air Weight: 75 kg Body Mass Index (BMI) 30.8 Intake and Output for Last 24 Hours 06/04/18 06/05/18 06/06/18 23:59 23:59 23:59 Intake Total 1320 / 1320 1400 / 1400 1360 / 1360 Output Total 1450 / 1450 3250 / 3250 2350 / 2350 Balance -130 / -130 -1850 / -1850 -990 / -990 Laboratory Results 06/06/18 10:43: WBC 7.7, RBC 4.12 L, Hgb 12.2 L, Hct 40.0, MCV 97.1 H, MCH 29.6, MCHC 30.5 L, RDW 15.7 H, RDW Differential 55.0 H, Plt Count 124 L, MPV 9.9, Immature Gran % (Auto) 0.600, Neut % (Auto) 67.2, Lymph % (Auto) 18.7 L, [place] % (Auto) 11.0 H, Eos % (Auto) 2.2, Baso % (Auto) 0.3, Absolute Neuts (auto) 5.2, Absolute Lymphs (auto) 1.44, Total Counted Not Reportable Current Medications Bisacodyl (Dulcolax) 10 mg RECTAL .PRN X 1 PRN PRN Reason: Constipation Calamine/Phenol (Calmoseptine Ointment) 1 applic TOPICAL TID [facility]; Protocol Last Admin: 06/06/18 12:59 Dose: 1 applicatio Emollient Ointment (Eucerin Intensive Repair) 1 applic TOPICAL BID@2200,0600 [facility]; Protocol Last Admin: 06/06/18 05:35 Dose: 1 applicatio Ergocalciferol (Vitamin D) 50,000 unit PO Q7D [facility] Last Admin: 06/05/18 07:58 Dose: 50,000 unit Escitalopram Oxalate (Lexapro) 10 mg PO DAILY [facility] Last Admin: 06/06/18 10:11 Dose: 10 mg Fentanyl (Duragesic Patch) 25 mcg TRANSDERM. Q3D [facility] Last Admin: 06/06/18 15:13 Dose: 25 mcg Gabapentin (Neurontin) 100 mg PO TIDCM [facility] Last Admin: 06/06/18 12:59 Dose: 100 mg Guaifenesin (Mucinex) 600 mg PO BID [facility] Last Admin: 06/06/18 10:11 Dose: 600 mg Hydrochlorothiazide (Hctz) 25 mg PO DAILY [facility] Last Admin: 06/06/18 10:11 Dose: 25 mg Lisinopril (Zestril) 20 mg PO DAILY [facility] Last Admin: 06/06/18 10:12 Dose: 20 mg Magnesium Hydroxide (Milk Of Magnesia) 30 ml PO .PRN X 1 PRN PRN Reason: Constipation [facility] Last Admin: 06/06/18 10:11 Dose: 1 tablet Nutritional Formula (Mac - Brown Flavor) [facility] Last Admin: 06/06/18 10:11 Dose: 1 packet Oxycodone HCl (Oxyir) 5 mg PO Q6H PRN PRN PRN Reason: PAIN Last Admin: 06/05/18 21:17 Dose: 5 mg Pantoprazole Sodium (Protonix) 20 mg PO DAILY [facility] Last Admin: 06/06/18 10:12 Dose: 20 mg Senna/Docusate Sodium (Senokot-S, Marcie-Colace) 2 tablet PO BID PRN PRN Reason: CONSTIPATION Tamsulosin HCl (Flomax) 0.4 mg PO DAILY@1730 [facility] Last Admin: 06/05/18 17:57 Dose: 0.4 mg Tizanidine HCl (Zanaflex) 4 mg PO Q8H PRN PRN PRN Reason: MUSCLE SPASM Last Admin: 06/06/18 10:12 Dose: 4 mg Medical Necessity - Tobacco Use Smoking Status: Current every day smoker Assessment/Plan All Active Problems Fall (Resolved) Rhabdomyolysis (Resolved) Patient is a 62-year-old gentleman returns following a fall during a seizure. He did experience Acute thoracic cord compression/nerve impingement from epidural hematoma from T4-T10 level a right angulated comminuted and impacted fracture of the right femur. Suspected tertiary care center [facility] stabilized and transferred back to [facility] inpatient rehab unit 1. Fall with acute thoracic compression/epidural hematoma from T4-T10 with recent T8 fracture: Status post thoracic spine fusion, drainage of the epidural hematoma. Had residual effects including paraplegia 2. Right angulated comminuted intertrochanteric right hip fracture: Status post right hip cephalomedullary nail. 3. New onset seizure is also attributed to patient alcohol withdrawal currently not on any antiseizure medications 4. History of chronic alcohol abuse 5. DVT prophylaxis bilateral SCD Code Visit Inpatient E&M: 65286 Subs Hosp L2
--- NOTE | 2018-06-06 16:30 | PCM.PN.NEU ---
Subjective: Patient seen sitting up in bedside recliner. Tolerating therapy, pain is tolerable at times depending on the activity he can have a lot of pain. He denies any shortness of breath, or chest pains. He still has some episodes of nausea or dizziness with sudden movement, it has improved in the last few days. - Physical Exam General: Alert, Oriented x3, Cooperative HEENT: Atraumatic, PERRLA, EOMI, Normocephalic Neck: Supple, No JVD, Negative Carotid Bruits Lungs: Clear to auscultation, Normal air movement Cardiovascular: Regular rate, No murmurs Abdomen: Bowel Sounds Present, Soft, Non Tender Extremities: No edema, Capillary Refill Less than 3 Seconds Skin: No rashes, No breakdown Musculoskeletal: No Tenderness to Palpation of Joints or Extremities Neurological: Cranial nerves II-XII grossly intact Psych/Mental Status: Normal Affect, Appropriate, Alert and oriented to time, place, person, mood and affect Vital Signs Temp Pulse Resp BP Pulse Ox 98.1 F 82 18 112/72 96 06/06/18 10:00 06/06/18 10:00 06/06/18 10:00 06/06/18 10:06/06/18 10:00 Oxygen Delivery Method Room Air Weight: 75 kg Body Mass Index (BMI) 30.8 Intake and Output for Last 24 Hours 06/04/18 06/05/18 06/06/18 23:59 23:59 23:59 Intake Total 1320 / 1320 1400 / 1400 1360 / 1360 Output Total 1450 / 1450 3250 / 3250 2350 / 2350 Balance -130 / -130 -1850 / -1850 -990 / -990 Laboratory Tests Past 24 Hrs 06/06/18 10:43 WBC 7.7 RBC 4.12 L Hgb 12.2 L Hct 40.0 MCV 97.1 H MCH 29.6 MCHC 30.5 L RDW 15.7 H RDW Differential 55.0 H Plt Count 124 L MPV 9.9 Immature Gran % (Auto) 0.600 Neut % (Auto) 67.2 Lymph % (Auto) 18.7 L [place] % (Auto) 11.0 H Eos % (Auto) 2.2 Baso % (Auto) 0.3 Absolute Neuts (auto) 5.2 Absolute Lymphs (auto) 1.44 Total Counted Not Reportable Active Medications Bisacodyl (Dulcolax) 10 mg RECTAL .PRN X 1 PRN PRN Reason: Constipation Calamine/Phenol (Calmoseptine Ointment) 1 applic TOPICAL TID [facility]; Protocol Last Admin: 06/06/18 12:59 Dose: 1 applicatio Emollient Ointment (Eucerin Intensive Repair) 1 applic TOPICAL BID@2200,0600 [facility]; Protocol Last Admin: 06/06/18 05:35 Dose: 1 applicatio Ergocalciferol (Vitamin D) 50,000 unit PO Q7D [facility] Last Admin: 06/05/18 07:58 Dose: 50,000 unit Escitalopram Oxalate (Lexapro) 10 mg PO DAILY [facility] Last Admin: 06/06/18 10:11 Dose: 10 mg Fentanyl (Duragesic Patch) 25 mcg TRANSDERM. Q3D [facility] Last Admin: 06/06/18 15:13 Dose: 25 mcg Gabapentin (Neurontin) 100 mg PO TIDCM [facility] Last Admin: 06/06/18 12:59 Dose: 100 mg Guaifenesin (Mucinex) 600 mg PO BID [facility] Last Admin: 06/06/18 10:11 Dose: 600 mg Hydrochlorothiazide (Hctz) 25 mg PO DAILY [facility] Last Admin: 06/06/18 10:11 Dose: 25 mg Lisinopril (Zestril) 20 mg PO DAILY [facility] Last Admin: 06/06/18 10:12 Dose: 20 mg Magnesium Hydroxide (Milk Of Magnesia) 30 ml PO .PRN X 1 PRN PRN Reason: Constipation [facility] Admin: 06/06/18 10:11 Dose: 1 tablet Nutritional Formula (Mac - [place] Flavor) [facility] Last Admin: 06/06/18 10:11 Dose: 1 packet Oxycodone HCl (Oxyir) 5 mg PO Q6H PRN PRN PRN Reason: PAIN Last Admin: 06/05/18 21:17 Dose: 5 mg Pantoprazole Sodium (Protonix) 20 mg PO DAILY [facility] Last Admin: 06/06/18 10:12 Dose: 20 mg Senna/Docusate Sodium (Senokot-S, Marcie-Colace) 2 tablet PO BID PRN PRN Reason: CONSTIPATION Tamsulosin HCl (Flomax) 0.4 mg PO DAILY@1730 [facility] Last Admin: 06/05/18 17:57 Dose: 0.4 mg Tizanidine HCl (Zanaflex) 4 mg PO Q8H PRN PRN PRN Reason: MUSCLE SPASM Last Admin: 06/06/18 10:12 Dose: 4 mg Medical Necessity - Tobacco Use Smoking Status: Current every day smoker Assessment/Plan All Active Problems Fall (Resolved) Rhabdomyolysis (Resolved) Debility status post fall resulting in right hip fracture status post ORIF 05/12/18 and consequent epidural hematoma in his thoracic spine status post evacuation laminectomy 05/15/18. This is all complicated by a history of ankylosing spondylitis, chronic back pain and alcohol use. Goal of rehab is voodoo of previous level of functional independence. Plan: Physical therapy for transfers, he is nonweightbearing. Occupational Therapy for ADLs PRN analgesics Bowel protocol DVT prophylaxis: Transfer orders recommended Lovenox however given his thoracic hematoma and ongoing back pain we will limit his DVT prophylaxis to SCDs. Given platelet count (149)will continue to hold on starting Lovenox at this time, will re-address in the next day or two. Encourage alcohol abstention Continue antihypertensives Proton pump inhibitor Urinary retention: Louise catheter for now. Constipation: Bowel protocol Back pain: Repeat CT of his thoracic spine to increase fentanyl patch May removed janae from right hip 2 weeks after surgery - janae removed, incision is well approximated is C/D, no redness or edema noted. MRI brain -> shows resolution of PRES will not restart Keppra at this time Get out of bed and into a chair an hour in the morning and an hour in the afternoon
--- NOTE | 2018-06-06 16:34 | PN.NEURO_ITS ---
Subjective: Patient seen sitting up in bedside recliner. Tolerating therapy, pain is tolerable at times depending on the activity he can have a lot of pain. He denies any shortness of breath, or chest pains. He still has some episodes of nausea or dizziness with sudden movement, it has improved in the last few days. - Physical Exam General: Alert, Oriented x3, Cooperative HEENT: Atraumatic, PERRLA, EOMI, Normocephalic Neck: Supple, No JVD, Negative Carotid Bruits Lungs: Clear to auscultation, Normal air movement Cardiovascular: Regular rate, No murmurs Abdomen: Bowel Sounds Present, Soft, Non Tender Extremities: No edema, Capillary Refill Less than 3 Seconds Skin: No rashes, No breakdown Musculoskeletal: No Tenderness to Palpation of Joints or Extremities Neurological: Cranial nerves II-XII grossly intact Psych/Mental Status: Normal Affect, Appropriate, Alert and oriented to time, place, person, mood and affect Vital Signs Temp Pulse Resp BP Pulse Ox 98.1 F 82 18 112/72 96 06/06/18 10:00 06/06/18 10:00 06/06/18 10:00 06/06/18 10:06/06/18 10:00 Oxygen Delivery Method Room Air Weight: 75 kg Body Mass Index (BMI) 30.8 Intake and Output for Last 24 Hours 06/04/18 06/05/18 06/06/18 23:59 23:59 23:59 Intake Total 1320 / 1320 1400 / 1400 1360 / 1360 Output Total 1450 / 1450 3250 / 3250 2350 / 2350 Balance -130 / -130 -1850 / -1850 -990 / -990 Laboratory Tests Past 24 Hrs 06/06/18 10:43 WBC 7.7 RBC 4.12 L Hgb 12.2 L Hct 40.0 MCV 97.1 H MCH 29.6 MCHC 30.5 L RDW 15.7 H RDW Differential 55.0 H Plt Count 124 L MPV 9.9 Immature Gran % (Auto) 0.600 Neut % (Auto) 67.2 Lymph % (Auto) 18.7 L [place] % (Auto) 11.0 H Eos % (Auto) 2.2 Baso % (Auto) 0.3 Absolute Neuts (auto) 5.2 Absolute Lymphs (auto) 1.44 Total Counted Not Reportable Active Medications Bisacodyl (Dulcolax) 10 mg RECTAL .PRN X 1 PRN PRN Reason: Constipation Calamine/Phenol (Calmoseptine Ointment) 1 applic TOPICAL TID [facility]; Protocol Last Admin: 06/06/18 12:59 Dose: 1 applicatio Emollient Ointment (Eucerin Intensive Repair) 1 applic TOPICAL BID@2200,0600 [facility]; Protocol Last Admin: 06/06/18 05:35 Dose: 1 applicatio Ergocalciferol (Vitamin D) 50,000 unit PO Q7D [facility] Last Admin: 06/05/18 07:58 Dose: 50,000 unit Escitalopram Oxalate (Lexapro) 10 mg PO DAILY [facility] Last Admin: 06/06/18 10:11 Dose: 10 mg Fentanyl (Duragesic Patch) 25 mcg TRANSDERM. Q3D [facility] Last Admin: 06/06/18 15:13 Dose: 25 mcg Gabapentin (Neurontin) 100 mg PO TIDCM [facility] Last Admin: 06/06/18 12:59 Dose: 100 mg Guaifenesin (Mucinex) 600 mg PO BID [facility] Last Admin: 06/06/18 10:11 Dose: 600 mg Hydrochlorothiazide (Hctz) 25 mg PO DAILY [facility] Last Admin: 06/06/18 10:11 Dose: 25 mg Lisinopril (Zestril) 20 mg PO DAILY [facility] Last Admin: 06/06/18 10:12 Dose: 20 mg Magnesium Hydroxide (Milk Of Magnesia) 30 ml PO .PRN X 1 PRN PRN Reason: Constipation [facility] ([facility]) [facility] Last Admin: 06/06/18 10:11 Dose: 1 tablet Nutritional Formula (Mac - [place] Flavor) [facility] Last Admin: 06/06/18 10:11 Dose: 1 packet Oxycodone HCl (Oxyir) 5 mg PO Q6H PRN PRN PRN Reason: PAIN Last Admin: 06/05/18 21:17 Dose: 5 mg Pantoprazole Sodium (Protonix) 20 mg PO DAILY [facility] Last Admin: 06/06/18 10:12 Dose: 20 mg Senna/Docusate Sodium (Senokot-S, Marcie-Colace) 2 tablet PO BID PRN PRN Reason: CONSTIPATION Tamsulosin HCl (Flomax) 0.4 mg PO DAILY@1730 [facility] Last Admin: 06/05/18 17:57 Dose: 0.4 mg Tizanidine HCl (Zanaflex) 4 mg PO Q8H PRN PRN PRN Reason: MUSCLE SPASM Last Admin: 06/06/18 10:12 Dose: 4 mg Medical Necessity - Tobacco Use Smoking Status: Current every day smoker Assessment/Plan All Active Problems Fall (Resolved) Rhabdomyolysis (Resolved) Debility status post fall resulting in right hip fracture status post ORIF 05/12/18 and consequent epidural hematoma in his thoracic spine status post evacuation laminectomy 05/15/18. This is all complicated by a history of ankylosing spondylitis, chronic back pain and alcohol use. Goal of rehab is yarsanism of previous level of functional independence. Plan: Physical therapy for transfers, he is nonweightbearing. Occupational Therapy for ADLs PRN analgesics Bowel protocol DVT prophylaxis: Transfer orders recommended Lovenox however given his thoracic hematoma and ongoing back pain we will limit his DVT prophylaxis to SCDs. Given platelet count (149)will continue to hold on starting Lovenox at this time, will re-address in the next day or two. Encourage alcohol abstention Continue antihypertensives Proton pump inhibitor Urinary retention: Louise catheter for now. Constipation: Bowel protocol Back pain: Repeat CT of his thoracic spine to increase fentanyl patch May removed janae from right hip 2 weeks after surgery - janae removed, incision is well approximated is C/D, no redness or edema noted. MRI brain -> shows resolution of PRES will not restart Keppra at this time Get out of bed and into a chair an hour in the morning and an hour in the afternoon
[2018-06-06] MEDS: Tamsulosin HCl 0.4 MG Capsule PO (16:54)
--- NOTE | 2018-06-06 18:22 | ONC.CONS.INP ---
Subjective Date of Service:: 06/06/18 Chief Complaint: Thrombocytopenia History of Present Illness: Mr. Kavon Mazariegos is a very pleasant 62-year-old man with a past medical history significant for chronic back pain who suffered a mechanical fall on 05/10/2018, requiring ORIF of his right hip on 05/12/2018. Later experienced acute thoracic cord compression/nerve impingement secondary to epidural hematoma from T4-T10 level a right angulated comminuted and impacted fracture of the right femur. Patient was transferred referred to [facility], underwent evacuation on 05/15/2018 and later transferred back to [facility] rehab unit. Hematology consult requested to determine if DVT prophylaxis is contraindicated in light of recent thrombocytopenia. Upon assessment patient is sitting upright in bed. Complaints include urinary retention and constipation as he is nonweightbearing. States that he has never been told his platelet count has ever been low previously and has never experienced any episodes of overt bleeding or abnormal bruising. Denies any history of liver dysfunction. Although patient history alludes to EtOH abuse, patient verbalizes he does not utilize alcohol and quit smoking approximately 5 months ago. Patient denies a family history of bleeding or clotting disorders. 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) Past Medical/Surgical History: Past Medical History - Most Recent Inpatient Visit Past Medical History Start: 05/21/18 12:26 Text: Status: Complete Freq: ONCE Protocol: Document 05/21/18 12:26 (Rec: 05/21/18 13:32 [id number]) BMI Required to complete PMH What is Patient's BMI 30.8 Past Medical History Unable History Recalled No Query Text:Pt Unable/Family Not Present Neurologic Medical History Hx Stroke/TIA No Hx Dementia/Alzheimer's No Hx Parkinson's Disease No Hx Seizures Yes Hx Multiple Sclerosis No Hx Migraines No Cardiac Medical History VTE Present on Admission No Hx of Deep Vein Thrombosis/VTE/PE No Hx Hypertension Yes Hx Chest Pain/Angina No Hx Heart Attack No Hx Cardiac Surgery/Stents/Etc. No Hx Heart Failure No Hx Irregular Heartbeat and/or Afib Yes Hx Anticoagulant Therapy Yes Query Text:(Coumadin, Aspirin, Plavix, Xarelto, etc.) Hx Pain in Legs when Walking/Leg Cramps No Respiratory Medical History Hx COPD No Hx Emphysema No Smoking Status Current every day smoker Hx Tobacco Use in last 12 months Yes Sent to [facility] Yes Hx of Pipe Smoking No Hx of Cigar Smoking No Hx Sleep Apnea No Do you snore loudly (louder than talking No or can be heard through closed doors)? Do you often feel tired/ fatigued/ No sleepy during daytime? Has anyone observed you stop breathing No during sleep? STOP Results Negative GI Medical History Hx Ulcer No Hx Hepatitis No Hx Cirrhosis No Hx GI Bleed No Hx Unplanned Weight Loss No Genitourinary Medical History Indwelling Catheter in Place on Arrival/ Yes Admission Hx Renal Disease No Hx Dialysis No Musculoskeletal History Hx Arthritis Yes Hx Rheumatoid Arthritis No Endocrine Medical History Hx Diabetes No Hx Thyroid Disease No Hematologic Medical History Hx of Blood Transfusion Yes Hx of Transfusion in last 3 Months Yes Date of Last Transfusion (if within last 05/16/18 3 months) Ever experience any problems with No transfusion(s)? Hx of Preganancy in last 3 Months N/A Nurse Filling Out Transfusion & BLINHOSS Questions: Date: 05/21/18 Time: 13:31 Psycho/Social Medical History Hx Depression No Hx Anxiety No Hx Behavior Disorder No Hx Alcohol Use Yes Hx Substance Use No Other Medical History Hx Blood Disorders No Hx Anemia No Hx Cancer No Hx Drug Resistant Organism No Wound/Pressure Injury Present on Arrival No /Admission Query Text:If yes, chart assessment in Shift/Clinical Findings Central Line/PICC/VAD Present on Arrival No /Admission Antibiotics within last 7 days? No Methicillin Resistant Staphylococcus aureus Screening Active MRSA No Risk for Readmission Number of Risk Factors 3 At Risk for Readmission Patient is At Risk For Readmission Patient is eligible for Call Back Y Maternal Family History: No pertinent history - Social History Smoking Status: Current every day smoker Allergies/Adverse Reactions: Allergy/AdvReac Type Severity Reaction Status Date / Time wool Allergy Rash Verified 05/22/18 15:56 Review of Systems Constitutional:: Reports: Weakness. Denies: Fever, Sweats, Weight loss, Appetite change, Chills Cardiovascular:: Denies: Chest pain, Palpitations, Dyspnea on exertion, Orthopnea, PND, Shortness of breath Respiratory: Denies: Cough, Hemoptysis, Shortness of Breath, Wheezing Gastrointestinal:: Reports: Constipation. Denies: Abdominal pain, Nausea, Vomiting, Diarrhea, Hematochezia Genitourinary: Reports: - - Urinary retention. Denies: Dysuria, Hematuria, Flank pain Musculoskeletal:: Reports: Back pain, - - Paralysis bilateral lower extremities. Denies: Myalgia, Arthralgia Skin: Denies: Rash, Skin Changes, Wounds Neurological:: Denies: Headache, Dizziness, Numbness, Tingling, Visual changes, Tinnitus, Hearing loss Psychiatric: Denies: Anxiety, Depression, Homicidal Ideations, Suicidal Ideations Vital Signs Height 5 ft 4 in Weight: 165 lb 5.547 oz Weight in Pounds 165.3 lbs Pulse Ox 96 Temperature 98.1 F Pulse Rate 82 Respiratory Rate 18 Blood Pressure 112/72 Blood Pressure Position Supine - Physical Exam General: Alert, Oriented x3, No apparent distress HEENT: Atraumatic, PERRLA, EOMI, Normocephalic Oropharynx:: Negative for: Dry mucosa, Ulcerated lesions Neck:: Supple, Trachea midline. Negative for: JVD, bilateral Cardiac:: Regular rate, Regular rhythm, Normal S1, Normal S2. Negative for: Murmur Lungs: Clear to auscultation, Excusion symmetrical. Negative for: Rhonchi, Wheezes Abdomen:: Bowel sounds x 4, Soft, Non-tender, Non-distended. Negative for: Hepatosplenomegaly Extremities:: Negative for: Cyanosis, Edema Skin:: Negative for: Lesions, Rash, Petechiae, Ecchymosis Psychiatric:: Appropriate affect, Euthymic Lymphatics:: Axillary lymphadenopathy. Negative for: Cervical lymphadenopathy, Supraclavicular lymphadenopathy Laboratory Data: Laboratory Tests 06/06/18 Range/Units 10:43 WBC 7.7 (4.4-11.0) K/mm3 RBC 4.12 L (4.6-6.2) M/mm3 Hgb 12.2 L (13.0-16.5) g/dl Hct 40.0 (40-54) % MCV 97.1 H (80-94) fL MCH 29.6 (27.0-32.0) pg MCHC 30.5 L (32-36) g/gl RDW 15.7 H (11.6-14.6) % RDW Differential 55.0 H (35.1-43.9) fl Plt Count 124 L (150-450) K/mm3 MPV 9.9 (6.2-12.0) fl Immature Gran % (Auto) 0.600 (0.0-0.9) % Neut % (Auto) 67.2 (47-70) % Lymph % (Auto) 18.7 L (19-41) % [place] % (Auto) 11.0 H (0-10) % Eos % (Auto) 2.2 (0-5) % Baso % (Auto) 0.3 (0-1) % Absolute Neuts (auto) 5.2 (2.0-7.7) X10^3/uL Absolute Lymphs (auto) 1.44 (0.83-4.51) X10^3/ul Total Counted Not Reportable Diagnostic Data: Diagnostic Data Brain MRI 05/26/18 12:49 IMPRESSION: Previously demonstrated occipital white matter changes are no longer seen, 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 Mild chronic microvascular ischemic changes. Electronically Signed: Natividad Donaldson MD at 17:27 EST Tel , Service support , ADDENDUM: 05/28/18 1854 Hip/Pelvis X-Ray 05/26/18 14:47 IMPRESSION: 1. No acute process. 2. Status post ORIF of the right hip. 3. Mild degenerative changes of the hips and pelvis. Electronically Signed: Natividad Donaldson MD at 16:42 EST Tel , Service support , Thoracic Spine CT 05/27/18 13:15 IMPRESSION: Stable examination. Electronically Signed: Venkata Franklin MD at 14:11 EST Tel [phone], Service support , Assessment and Plan Mr. Kavon Casanova is a pleasant 62-year-old man the past history of chronic back pain who experienced a fall which required ORIF of right hip 05/12/18 and consequent epidural hematoma in his thoracic spine status post evacuation laminectomy 05/15/18. Of late found to be thrombocytopenic. 1. Thrombocytopenia?as evidenced by platelet count of 124,000. Reviewing previous trends his platelet count was 102,000 upon admission and 61,000 a day prior to laminectomy. AST and alk phos are mildly elevated-presumably associated with history of EtOH use, although patient is adamant he does not utilize alcohol. Thrombocytopenia could be associated with liver dysfunction. From a hematologic perspective prophylactic Lovenox is not contraindicated in the setting of mild thrombocytopenia (124,000). In fact as long as platelets remain above 50,000 and in the absence of active bleeding, Lovenox can be continued. Thank you for allowing us to participate in this patient's care. Luci Polk, MSN, COMPUTER AIDED DRAFTER, AOCNP Medications: Prescriptions This Visit Medication Instructions Recorded Ergocalciferol [Vitamin D] 50,000 unit PO Q7D 05/21/18 Gabapentin [Neurontin] 1 cap PO TID 05/21/18 Guaifenesin [Mucinex] 600 mg PO BID 05/21/18 Lisinopril/Hydrochlorothiazide 1 tablet PO DAILY 05/21/18 [Zestoretic 20/25 Tablet] Multivitamins,Therapeutic 1 tablet PO DAILY 05/21/18 [Multivitamin] Oxycodone [Oxyir] 5 mg PO Q6H PRN PRN 05/21/18 Primary Care Provider: Yang Saul MD Referring Provider: - Problem List (1) Thrombocytopenia Status: Acute
--- NOTE | 2018-06-06 18:28 | CON.PCM_ITS ---
Subjective Date of Service:: 06/06/18 Chief Complaint: Thrombocytopenia History of Present Illness: Mr. Kavon Mazariegos is a very pleasant 62-year-old man with a past medical history significant for chronic back pain who suffered a mechanical fall on 05/10/2018, requiring ORIF of his right hip on 05/12/2018. Later experienced acute thoracic cord compression/nerve impingement secondary to epidural hematoma from T4-T10 level a right angulated comminuted and impacted fracture of the right femur. Patient was transferred referred to [facility], underwent evacuation on 05/15/2018 and later transferred back to [facility] rehab unit. Hematology consult requested to determine if DVT prophylaxis is contraindicated in light of recent thrombocytopenia. Upon assessment patient is sitting upright in bed. Complaints include urinary retention and constipation as he is nonweightbearing. States that he has never been told his platelet count has ever been low previously and has never experienced any episodes of overt bleeding or abnormal bruising. Denies any history of liver dysfunction. Although patient history alludes to EtOH abuse, patient verbalizes he does not utilize alcohol and quit smoking approximately 5 months ago. Patient denies a family history of bleeding or clotting disorders. 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) Past Medical/Surgical History: Past Medical History - Most Recent Inpatient Visit Past Medical History Start: 05/21/18 12:26 Text: Status: Complete Freq: ONCE Protocol: Document 05/21/18 12:26 (Rec: 05/21/18 13:32 [id number]) BMI Required to complete PMH What is Patient's BMI 30.8 Past Medical History Unable History Recalled No Query Text:Pt Unable/Family Not Present Neurologic Medical History Hx Stroke/TIA No Hx Dementia/Alzheimer's No Hx Parkinson's Disease No Hx Seizures Yes Hx Multiple Sclerosis No Hx Migraines No Cardiac Medical History VTE Present on Admission No Hx of Deep Vein Thrombosis/VTE/PE No Hx Hypertension Yes Hx Chest Pain/Angina No Hx Heart Attack No Hx Cardiac Surgery/Stents/Etc. No Hx Heart Failure No Hx Irregular Heartbeat and/or Afib Yes Hx Anticoagulant Therapy Yes Query Text:(Coumadin, Aspirin, Plavix, Xarelto, etc.) Hx Pain in Legs when Walking/Leg Cramps No Respiratory Medical History Hx COPD No Hx Emphysema No Smoking Status Current every day smoker Hx Tobacco Use in last 12 months Yes Sent to PSN Yes Hx of Pipe Smoking No Hx of Cigar Smoking No Hx Sleep Apnea No Do you snore loudly (louder than talking No or can be heard through closed doors)? Do you often feel tired/ fatigued/ No sleepy during daytime? Has anyone observed you stop breathing No during sleep? STOP Results Negative GI Medical History Hx Ulcer No Hx Hepatitis No Hx Cirrhosis No Hx GI Bleed No Hx Unplanned Weight Loss No Genitourinary Medical History Indwelling Catheter in Place on Arrival/ Yes Admission Hx Renal Disease No Hx Dialysis No Musculoskeletal History Hx Arthritis Yes Hx Rheumatoid Arthritis No Endocrine Medical History Hx Diabetes No Hx Thyroid Disease No Hematologic Medical History Hx of Blood Transfusion Yes Hx of Transfusion in last 3 Months Yes Date of Last Transfusion (if within last 05/16/18 3 months) Ever experience any problems with No transfusion(s)? Hx of Preganancy in last 3 Months N/A Nurse Filling Out Transfusion & BLINHOSS Questions: Date: 05/21/18 Time: 13:31 Psycho/Social Medical History Hx Depression No Hx Anxiety No Hx Behavior Disorder No Hx Alcohol Use Yes Hx Substance Use No Other Medical History Hx Blood Disorders No Hx Anemia No Hx Cancer No Hx Drug Resistant Organism No Wound/Pressure Injury Present on Arrival No /Admission Query Text:If yes, chart assessment in Shift/Clinical Findings Central Line/PICC/VAD Present on Arrival No /Admission Antibiotics within last 7 days? No Methicillin Resistant Staphylococcus aureus Screening Active MRSA No Risk for Readmission Number of Risk Factors 3 At Risk for Readmission Patient is At Risk For Readmission Patient is eligible for Call Back Y Maternal Family History: No pertinent history - Social History Smoking Status: Current every day smoker Allergies/Adverse Reactions: Allergy/AdvReac Type Severity Reaction Status Date / Time wool Allergy Rash Verified 05/22/18 15:56 Review of Systems Constitutional:: Reports: Weakness. Denies: Fever, Sweats, Weight loss, Appetite change, Chills Cardiovascular:: Denies: Chest pain, Palpitations, Dyspnea on exertion, Orthopnea, PND, Shortness of breath Respiratory: Denies: Cough, Hemoptysis, Shortness of Breath, Wheezing Gastrointestinal:: Reports: Constipation. Denies: Abdominal pain, Nausea, Vomiting, Diarrhea, Hematochezia Genitourinary: Reports: - - Urinary retention. Denies: Dysuria, Hematuria, Flank pain Musculoskeletal:: Reports: Back pain, - - Paralysis bilateral lower extremities. Denies: Myalgia, Arthralgia Skin: Denies: Rash, Skin Changes, Wounds Neurological:: Denies: Headache, Dizziness, Numbness, Tingling, Visual changes, Tinnitus, Hearing loss Psychiatric: Denies: Anxiety, Depression, Homicidal Ideations, Suicidal Ideations Vital Signs Height 5 ft 4 in Weight: 165 lb 5.547 oz Weight in Pounds 165.3 lbs Pulse Ox 96 Temperature 98.1 F Pulse Rate 82 Respiratory Rate 18 Blood Pressure 112/72 Blood Pressure Position Supine - Physical Exam General: Alert, Oriented x3, No apparent distress HEENT: Atraumatic, PERRLA, EOMI, Normocephalic Oropharynx:: Negative for: Dry mucosa, Ulcerated lesions Neck:: Supple, Trachea midline. Negative for: JVD, bilateral Cardiac:: Regular rate, Regular rhythm, Normal S1, Normal S2. Negative for: Murmur Lungs: Clear to auscultation, Excusion symmetrical. Negative for: Rhonchi, Wheezes Abdomen:: Bowel sounds x 4, Soft, Non-tender, Non-distended. Negative for: Hepatosplenomegaly Extremities:: Negative for: Cyanosis, Edema Skin:: Negative for: Lesions, Rash, Petechiae, Ecchymosis Psychiatric:: Appropriate affect, Euthymic Lymphatics:: Axillary lymphadenopathy. Negative for: Cervical lymphadenopathy, Supraclavicular lymphadenopathy Laboratory Data: Laboratory Tests 06/06/18 Range/Units 10:43 WBC 7.7 (4.4-11.0) K/mm3 RBC 4.12 L (4.6-6.2) M/mm3 Hgb 12.2 L (13.0-16.5) g/dl Hct 40.0 (40-54) % MCV 97.1 H (80-94) fL MCH 29.6 (27.0-32.0) pg MCHC 30.5 L (32-36) g/gl RDW 15.7 H (11.6-14.6) % RDW Differential 55.0 H (35.1-43.9) fl Plt Count 124 L (150-450) K/mm3 MPV 9.9 (6.2-12.0) fl Immature Gran % (Auto) 0.600 (0.0-0.9) % Neut % (Auto) 67.2 (47-70) % Lymph % (Auto) 18.7 L (19-41) % [place] % (Auto) 11.0 H (0-10) % Eos % (Auto) 2.2 (0-5) % Baso % (Auto) 0.3 (0-1) % Absolute Neuts (auto) 5.2 (2.0-7.7) X10^3/uL Absolute Lymphs (auto) 1.44 (0.83-4.51) X10^3/ul Total Counted Not Reportable Diagnostic Data: Diagnostic Data Brain MRI 05/26/18 12:49 IMPRESSION: Previously demonstrated occipital white matter changes are no longer seen, 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 Mild chronic microvascular ischemic changes. Electronically Signed: Natividad Donaldson MD at 17:27 EST Tel , Service support , ADDENDUM: 05/28/18 1854 Hip/Pelvis X-Ray 05/26/18 14:47 IMPRESSION: 1. No acute process. 2. Status post ORIF of the right hip. 3. Mild degenerative changes of the hips and pelvis. Electronically Signed: Natividad Donaldson MD at 16:42 EST Tel , Service support , Thoracic Spine CT 05/27/18 13:15 IMPRESSION: Stable examination. Electronically Signed: Venkata Franklin MD at 14:11 EST Tel [phone], Service support , Assessment and Plan Mr. Kavon Casanova is a pleasant 62-year-old man the past history of chronic back pain who experienced a fall which required ORIF of right hip 05/12/18 and consequent epidural hematoma in his thoracic spine status post evacuation laminectomy 05/15/18. Of late found to be thrombocytopenic. 1. Thrombocytopenia?as evidenced by platelet count of 124,000. Reviewing previous trends his platelet count was 102,000 upon admission and 61,000 a day prior to laminectomy. AST and alk phos are mildly elevated-presumably associated with history of EtOH use, although patient is adamant he does not utilize alcohol. Thrombocytopenia could be associated with liver dysfunction. From a hematologic perspective prophylactic Lovenox is not contraindicated in the setting of mild thrombocytopenia (124,000). In fact as long as platelets remain above 50,000 and in the absence of active bleeding, Lovenox can be continued. Thank you for allowing us to participate in this patient's care. Luci Polk, MSN, BOTTLE DEALER, AOCNP Medications: Prescriptions This Visit Medication Instructions Recorded Ergocalciferol [Vitamin D] 50,000 unit PO Q7D 05/21/18 Gabapentin [Neurontin] 1 cap PO TID 05/21/18 Guaifenesin [Mucinex] 600 mg PO BID 05/21/18 Lisinopril/Hydrochlorothiazide 1 tablet PO DAILY 05/21/18 [Zestoretic 20/25 Tablet] Multivitamins,Therapeutic 1 tablet PO DAILY 05/21/18 [Multivitamin] Oxycodone [Oxyir] 5 mg PO Q6H PRN PRN 05/21/18 Primary Care Provider: Yang Saul MD Referring Provider: - Problem List (1) Thrombocytopenia Status: Acute
[2018-06-06 19:50] VITALS: BP 109/59; PULSE 100; RESP 18; TEMP 36.6; O2SAT 96
[2018-06-07] MEDS: Menthol/Lanolin/Calamine/Znox 113 GM Tube 1 APPLIC TOPICAL ×3 (05:19→20:45)
[2018-06-07] MEDS: tiZANidine HCl 2 MG Tablet 4 MG PO ×2 (06:59→20:48)
[2018-06-07] MEDS: Multivitamins,Therapeutic Tablet 1 TABLET PO (07:53)
[2018-06-07] MEDS: Gabapentin 100 MG Capsule PO ×3 (07:53→17:28)
[2018-06-07] MEDS: Escitalopram Oxalate 10 MG Tablet PO (07:53)
[2018-06-07] MEDS: guaiFENesin 600 MG Tablet PO ×2 (07:53→20:47)
[2018-06-07] MEDS: Pantoprazole Sodium 20 MG Tablet PO (07:53)
[2018-06-07 07:55] VITALS: BP 114/60; PULSE 77; RESP 18; TEMP 36.4; O2SAT 96
[2018-06-07] MEDS: hydroCHLOROthiazide 25 MG Tablet PO (09:19)
[2018-06-07] MEDS: Lisinopril 20 MG Tablet PO (09:20)
--- NOTE | 2018-06-07 14:15 | CASEMGMT ---
[facility] to not have any long term care pharmacist bed options at this time and to only have short term openings. This social science research assistant speaking with patient in room. Patient reporting to be more interested in discharging to a facility that patient could stay in for an extended time, if needed. Patient now identifying [facility] as a second option. Support given[facility] This social science research assistant making referral. Clinical information sent. Pending approval at this time. Proposed discharge date: 06/10/18 PLAN: Discharge to [facility], pending approval. CHEIKH Stahl, RADIOCOMMUNICATIONS TECHNICIAN
--- NOTE | 2018-06-07 16:19 | CHAPLAIN ---
Type of Pastoral Visit ___ Initial Visit _x__ Follow-up Visit ___ On-call Visit ___ General Patient Visit ___ Spiritual Assessment ___ Family Conference ___ Bereavement ___ Rapid Response ___ Code Blue ___ Other (describe below) Pastoral Care Referral From _x__ Patient ___ Family ___ Nurse ___ Physician ___ Medical Records Library Professor ___ Applied Anthropologist ___ Other (describe below) Sacrament/Intervention _x__ Active listening ___ Anointing ___ Anabaptism ___ Bereavement ___ Communion ___ Loraine exploration ___ ___ Life review _x__ Prayer ___ Reconciliation ___ Sacrament of Sick ___ Supportive presence ___ Wedding ___ Other (describe below) Pastoral Comments
[2018-06-07] MEDS: Tamsulosin HCl 0.4 MG Capsule PO (17:28)
[2018-06-07 19:51] VITALS: BP 117/51; PULSE 102; RESP 17; TEMP 36.4; O2SAT 95
[2018-06-08] MEDS: Menthol/Lanolin/Calamine/Znox 113 GM Tube 1 APPLIC TOPICAL ×3 (05:32→22:11)
[2018-06-08] MEDS: tiZANidine HCl 2 MG Tablet 4 MG PO ×3 (05:37→22:15)
[2018-06-08 07:04] VITALS: BP 128/76; PULSE 74; RESP 17; TEMP 36.5; O2SAT 96
[2018-06-08] MEDS: Pantoprazole Sodium 20 MG Tablet PO (07:47)
[2018-06-08] MEDS: Escitalopram Oxalate 10 MG Tablet PO (07:47)
[2018-06-08] MEDS: Multivitamins,Therapeutic Tablet 1 TABLET PO (07:47)
[2018-06-08] MEDS: hydroCHLOROthiazide 25 MG Tablet PO (07:47)
[2018-06-08] MEDS: guaiFENesin 600 MG Tablet PO ×2 (07:47→22:12)
[2018-06-08] MEDS: Lisinopril 20 MG Tablet PO (07:47)
[2018-06-08] MEDS: Gabapentin 100 MG Capsule PO ×3 (07:47→17:03)
--- NOTE | 2018-06-08 10:10 | PN.NEURO_ITS ---
Patient Problems: Active and Suspected Problems Thrombocytopenia (Acute) Subjective: Patient seen and examined. No new complaints. Hematology was consulted concerning his Thrombocytopenia, and if we could start Lovenox, Hematology states there is no contraindication for him to start on Lovenox. He is tolerating therapy. Pain is still not well controlled. Denies any shortness of breath, or chest pains. No issues with GI/. - Physical Exam General: Alert, Oriented x3, Cooperative HEENT: Atraumatic, PERRLA, EOMI, Normocephalic Neck: Supple, No JVD, Negative Carotid Bruits Lungs: Clear to auscultation, Normal air movement Cardiovascular: Regular rate, No murmurs Abdomen: Bowel Sounds Present, Soft, Non Tender Extremities: No edema, Capillary Refill Less than 3 Seconds Skin: No rashes, No breakdown Musculoskeletal: No Tenderness to Palpation of Joints or Extremities Neurological: Cranial nerves II-XII grossly intact Psych/Mental Status: Normal Affect, Appropriate, Alert and oriented to time, place, person, mood and affect Vital Signs Temp Pulse Resp BP Pulse Ox 97.7 F L 74 17 128/76 H 96 06/08/18 07:04 06/08/18 07:04 06/08/18 07:04 06/08/18 07:04 06/08/18 07:04 Oxygen Delivery Method Room Air Weight: 75 kg Body Mass Index (BMI) 30.8 Intake and Output for Last 24 Hours 06/06/18 06/07/18 06/08/18 23:59 23:59 23:59 Intake Total 1510 / 1510 2480 / 2480 2060 / 2060 Output Total 2925 / 2925 1600 / 1600 1850 / 1850 Balance -1415 / -1415 880 / 880 210 / 210 Active Medications Bisacodyl (Dulcolax) 10 mg RECTAL .PRN X 1 PRN PRN Reason: Constipation Calamine/Phenol (Calmoseptine Ointment) 1 applic TOPICAL TID [facility]; Protocol Last Admin: 06/08/18 05:32 Dose: 1 applicatio Emollient Ointment (Eucerin Intensive Repair) 1 applic TOPICAL BID@2200,0600 [facility]; Protocol Last Admin: 06/08/18 05:32 Dose: 1 applicatio Ergocalciferol (Vitamin D) 50,000 unit PO Q7D [facility] Last Admin: 06/05/18 07:58 Dose: 50,000 unit Escitalopram Oxalate (Lexapro) 10 mg PO DAILY [facility] Last Admin: 06/08/18 07:47 Dose: 10 mg Fentanyl (Duragesic Patch) 25 mcg TRANSDERM. Q3D [facility] Last Admin: 06/06/18 15:13 Dose: 25 mcg Gabapentin (Neurontin) 100 mg PO TIDCM [facility] Last Admin: 06/08/18 07:47 Dose: 100 mg Guaifenesin (Mucinex) 600 mg PO BID [facility] Last Admin: 06/08/18 07:47 Dose: 600 mg Hydrochlorothiazide (Hctz) 25 mg PO DAILY [facility] Last Admin: 06/08/18 07:47 Dose: 25 mg Lisinopril (Zestril) 20 mg PO DAILY [facility] Last Admin: 06/08/18 07:47 Dose: 20 mg Magnesium Hydroxide (Milk Of Magnesia) 30 ml PO .PRN X 1 PRN PRN Reason: Constipation [facility]ivitamins ([facility]ivitamin) [facility] Last Admin: 06/08/18 07:47 Dose: 1 tablet Nutritional Formula (Mac - [place] Flavor) [facility] Last Admin: 06/08/18 07:47 Dose: 1 packet Oxycodone HCl (Oxyir) 5 mg PO Q6H PRN PRN PRN Reason: PAIN Last Admin: 06/05/18 21:17 Dose: 5 mg Pantoprazole Sodium (Protonix) 20 mg PO DAILY [facility] Last Admin: 06/08/18 07:47 Dose: 20 mg Senna/Docusate Sodium (Senokot-S, Marcie-Colace) 2 tablet PO BID PRN PRN Reason: CONSTIPATION Tamsulosin HCl (Flomax) 0.4 mg PO DAILY@1730 [facility] Last Admin: 06/07/18 17:28 Dose: 0.4 mg Tizanidine HCl (Zanaflex) 4 mg PO Q8H PRN PRN PRN Reason: MUSCLE SPASM Last Admin: 06/08/18 05:37 Dose: 4 mg Medical Necessity - Tobacco Use Smoking Status: Current every day smoker Assessment/Plan All Active Problems Thrombocytopenia (Acute) Fall (Resolved) Rhabdomyolysis (Resolved) Debility status post fall resulting in right hip fracture status post ORIF 05/12/18 and consequent epidural hematoma in his thoracic spine status post evacuation laminectomy 05/15/18. This is all complicated by a history of ankylosing spondylitis, chronic back pain and alcohol use. Goal of rehab is pentecost[facility] of previous level of functional independence. Plan: Physical therapy for transfers, he is nonweightbearing. Occupational Therapy for ADLs PRN analgesics Bowel protocol DVT prophylaxis: Transfer orders recommended Lovenox however given his thoracic hematoma and ongoing back pain we will limit his DVT prophylaxis to SCDs. Given platelet count (149)will continue to hold on starting Lovenox at this time, will re-address in the next day or two. Encourage alcohol abstention Continue antihypertensives Proton pump inhibitor Urinary retention: Louise catheter for now. Constipation: Bowel protocol Back pain: Repeat CT of his thoracic spine to increase fentanyl patch May removed janae from right hip 2 weeks after surgery - janae removed, incision is well approximated is C/D, no redness or edema noted. MRI brain -> shows resolution of PRES will not restart Keppra at this time Get out of bed and into a chair an hour in the morning and an hour in the afternoon start Lovenox 40mg for PPX Thrombocytopenia-> continue to monitor platelets
--- NOTE | 2018-06-08 13:43 | PCM.PN.HOSP ---
Patient Problems: Active and Suspected Problems Thrombocytopenia (Acute) Subjective: Patient seen still does not have any voluntary movement in his lower extremities Objective: GENERAL: cooperative HEENT: Atraumatic; moist oral mucosa EYES; Anicteric, Normal Conjunctiva NECK; supple, normal thyroid, no distended JVD. RESPIRATORY: Diminished to auscultation bilaterally, CARDIOVASCULAR: Regular S1 S2, no audible murmurs GI: soft, non-tender, normoactive bowel sounds, : No Renal angle tenderness; EXTREMITIES: No edema, no clubbing, no cyanosis. NEURO: Awake; paraplegic SKIN: No Rash PSYCH; Normal affect Vitals/I&O's: Vital Signs Temp Pulse Resp BP Pulse Ox 97.7 F L 74 17 128/76 H 96 06/08/18 07:04 06/08/18 07:04 06/08/18 07:04 06/08/18 07:04 06/08/18 07:04 Oxygen Delivery Method Room Air Weight: 75 kg Body Mass Index (BMI) 30.8 Intake and Output for Last 24 Hours 06/06/18 06/07/18 06/08/18 23:59 23:59 23:59 Intake Total 1510 / 1510 2480 / 2480 2840 / 2840 Output Total 2925 / 2925 1600 / 1600 2650 / 2650 Balance -1415 / -1415 880 / 880 190 / 190 Current Medications Bisacodyl (Dulcolax) 10 mg RECTAL .PRN X 1 PRN PRN Reason: Constipation Calamine/Phenol (Calmoseptine Ointment) 1 applic TOPICAL TID [facility]; Protocol Last Admin: 06/08/18 13:34 Dose: 1 applicatio Emollient Ointment (Eucerin Intensive Repair) 1 applic TOPICAL BID@2200,0600 [facility]; Protocol Last Admin: 06/08/18 05:32 Dose: 1 applicatio Ergocalciferol (Vitamin D) 50,000 unit PO Q7D [facility] Last Admin: 06/05/18 07:58 Dose: 50,000 unit Escitalopram Oxalate (Lexapro) 10 mg PO DAILY [facility] Last Admin: 06/08/18 07:47 Dose: 10 mg Fentanyl (Duragesic Patch) 25 mcg TRANSDERM. Q3D [facility] Last Admin: 06/06/18 15:13 Dose: 25 mcg Gabapentin (Neurontin) 100 mg PO TIDCM [facility] Last Admin: 06/08/18 13:34 Dose: 100 mg Guaifenesin (Mucinex) 600 mg PO BID [facility] Last Admin: 06/08/18 07:47 Dose: 600 mg Hydrochlorothiazide (Hctz) 25 mg PO DAILY [facility] Last Admin: 06/08/18 07:47 Dose: 25 mg Lisinopril (Zestril) 20 mg PO DAILY [facility] Last Admin: 06/08/18 07:47 Dose: 20 mg Magnesium Hydroxide (Milk Of Magnesia) 30 ml PO .PRN X 1 PRN PRN Reason: Constipation [facility]) [facility] Last Admin: 06/08/18 07:47 Dose: 1 tablet Nutritional Formula (Mac - [place] Flavor) [facility] Last Admin: 06/08/18 07:47 Dose: 1 packet Oxycodone HCl (Oxyir) 5 mg PO Q6H PRN PRN PRN Reason: PAIN Last Admin: 06/05/18 21:17 Dose: 5 mg Pantoprazole Sodium (Protonix) 20 mg PO DAILY [facility] Last Admin: 06/08/18 07:47 Dose: 20 mg Senna/Docusate Sodium (Senokot-S, Marcie-Colace) 2 tablet PO BID PRN PRN Reason: CONSTIPATION Tamsulosin HCl (Flomax) 0.4 mg PO DAILY@1730 [facility] Last Admin: 06/07/18 17:28 Dose: 0.4 mg Tizanidine HCl (Zanaflex) 4 mg PO Q8H PRN PRN PRN Reason: MUSCLE SPASM Last Admin: 06/08/18 13:35 Dose: 4 mg Medical Necessity - Tobacco Use Smoking Status: Current every day smoker Assessment/Plan All Active Problems Thrombocytopenia (Acute) Fall (Resolved) Rhabdomyolysis (Resolved) Patient is a 62-year-old gentleman returns following a fall during a seizure. He did experience Acute thoracic cord compression/nerve impingement from epidural hematoma from T4-T10 level a right angulated comminuted and impacted fracture of the right femur. Suspected tertiary care center [facility] stabilized and transferred back to [facility] inpatient rehab unit 1. Fall with acute thoracic compression/epidural hematoma from T4-T10 with recent T8 fracture: Status post thoracic spine fusion, drainage of the epidural hematoma. Had residual effects including paraplegia 2. Right angulated comminuted intertrochanteric right hip fracture: Status post right hip cephalomedullary nail. 3. New onset seizure is also attributed to patient alcohol withdrawal currently not on any antiseizure medications 4. History of chronic alcohol abuse 5. DVT prophylaxis bilateral SCD Code Visit Inpatient E&M: 84069 Subs Hosp L2
--- NOTE | 2018-06-08 13:48 | PN_ITS ---
Patient Problems: Active and Suspected Problems Thrombocytopenia (Acute) Subjective: Patient seen still does not have any voluntary movement in his lower extremities Objective: GENERAL: cooperative HEENT: Atraumatic; moist oral mucosa EYES; Anicteric, Normal Conjunctiva NECK; supple, normal thyroid, no distended JVD. RESPIRATORY: Diminished to auscultation bilaterally, CARDIOVASCULAR: Regular S1 S2, no audible murmurs GI: soft, non-tender, normoactive bowel sounds, : No Renal angle tenderness; EXTREMITIES: No edema, no clubbing, no cyanosis. NEURO: Awake; paraplegic SKIN: No Rash PSYCH; Normal affect Vitals/I&O's: Vital Signs Temp Pulse Resp BP Pulse Ox 97.7 F L 74 17 128/76 H 96 06/08/18 07:04 06/08/18 07:04 06/08/18 07:04 06/08/18 07:04 06/08/18 07:04 Oxygen Delivery Method Room Air Weight: 75 kg Body Mass Index (BMI) 30.8 Intake and Output for Last 24 Hours 06/06/18 06/07/18 06/08/18 23:59 23:59 23:59 Intake Total 1510 / 1510 2480 / 2480 2840 / 2840 Output Total 2925 / 2925 1600 / 1600 2650 / 2650 Balance -1415 / -1415 880 / 880 190 / 190 Current Medications Bisacodyl (Dulcolax) 10 mg RECTAL .PRN X 1 PRN PRN Reason: Constipation Calamine/Phenol (Calmoseptine Ointment) 1 applic TOPICAL TID [facility]; Protocol Last Admin: 06/08/18 13:34 Dose: 1 applicatio Emollient Ointment (Eucerin Intensive Repair) 1 applic TOPICAL BID@2200,0600 [facility]; Protocol Last Admin: 06/08/18 05:32 Dose: 1 applicatio Ergocalciferol (Vitamin D) 50,000 unit PO Q7D [facility] Last Admin: 06/05/18 07:58 Dose: 50,000 unit Escitalopram Oxalate (Lexapro) 10 mg PO DAILY [facility] Last Admin: 06/08/18 07:47 Dose: 10 mg Fentanyl (Duragesic Patch) 25 mcg TRANSDERM. Q3D [facility] Last Admin: 06/06/18 15:13 Dose: 25 mcg Gabapentin (Neurontin) 100 mg PO TIDCM [facility] Last Admin: 06/08/18 13:34 Dose: 100 mg Guaifenesin (Mucinex) 600 mg PO BID [facility] Last Admin: 06/08/18 07:47 Dose: 600 mg Hydrochlorothiazide (Hctz) 25 mg PO DAILY [facility] Last Admin: 06/08/18 07:47 Dose: 25 mg Lisinopril (Zestril) 20 mg PO DAILY [facility] Last Admin: 06/08/18 07:47 Dose: 20 mg Magnesium Hydroxide (Milk Of Magnesia) 30 ml PO .PRN X 1 PRN PRN Reason: Constipation [facility]it[facility] ([facility]) [facility] Last Admin: 06/08/18 07:47 Dose: 1 tablet Nutritional Formula (Mac - [place] Flavor) [facility] Last Admin: 06/08/18 07:47 Dose: 1 packet Oxycodone HCl (Oxyir) 5 mg PO Q6H PRN PRN PRN Reason: PAIN Last Admin: 06/05/18 21:17 Dose: 5 mg Pantoprazole Sodium (Protonix) 20 mg PO DAILY [facility] Last Admin: 06/08/18 07:47 Dose: 20 mg Senna/Docusate Sodium (Senokot-S, Marcie-Colace) 2 tablet PO BID PRN PRN Reason: CONSTIPATION Tamsulosin HCl (Flomax) 0.4 mg PO DAILY@1730 [facility] Last Admin: 06/07/18 17:28 Dose: 0.4 mg Tizanidine HCl (Zanaflex) 4 mg PO Q8H PRN PRN PRN Reason: MUSCLE SPASM Last Admin: 06/08/18 13:35 Dose: 4 mg Medical Necessity - Tobacco Use Smoking Status: Current every day smoker Assessment/Plan All Active Problems Thrombocytopenia (Acute) Fall (Resolved) Rhabdomyolysis (Resolved) Patient is a 62-year-old gentleman returns following a fall during a seizure. He did experience Acute thoracic cord compression/nerve impingement from epidural hematoma from T4-T10 level a right angulated comminuted and impacted fracture of the right femur. Suspected tertiary care center [facility] stabilized and transferred back to [facility] inpatient rehab unit 1. Fall with acute thoracic compression/epidural hematoma from T4-T10 with recent T8 fracture: Status post thoracic spine fusion, drainage of the epidural hematoma. Had residual effects including paraplegia 2. Right angulated comminuted intertrochanteric right hip fracture: Status post right hip cephalomedullary nail. 3. New onset seizure is also attributed to patient alcohol withdrawal currently not on any antiseizure medications 4. History of chronic alcohol abuse 5. DVT prophylaxis bilateral SCD Code Visit Inpatient E&M: 21235 Subs Hosp L2
--- NOTE | 2018-06-08 16:25 | PCM.TXEXTCAR ---
- Diet 05/21/18 12:31 Diet: Regular Diet - Wound(s) proximal right hip Wound Type: Surgical Incision medial right hip Wound Type: Surgical Incision distal right hip Wound Type: Surgical Incision BACK Wound Type: Surgical Incision left outer heel Wound Type: Pressure Injury Dressing Change: Mepilex applied left buttock Wound Type: Abrasion left upper arm Wound Type: scratch - Therapies Weight Bearing: Weight bearing as tolerated Extremity Affected:: Bilateral Lower Physical Therapy: Eval and Treat Occupational Therapy: Eval and Treat - Allergies/Procedures Done in Hospital Allergies/Adverse Reactions: Allergies wool Allergy (Verified 05/22/18 15:56) Rash - Type of Care/Length of Stay Estimated LOS: More Than 30 Days Type of Care Needed: Skilled Rehab Potential: Good Prognosis: Good - Additional Orders/Day of Discharge Day of Discharge: 06/10/18 - Dietary and Speech Recommendations Dietitian Recommendations/Changes: Rec diet change to Regular/no added salt. - Follow Up Care Primary Care Physician: Yang Saul MD [Primary Care Provider] - Please Follow Up With: Salima Roque MD When: Wednesday
--- NOTE | 2018-06-08 16:29 | CASEMGMT ---
Social Work Telephone call from the [facility] reporting to be able to accept resident on 06/10/18. Will faxed discharge information and any further needed documents when obtained/completed. Notified patient and team of above information, all agreeable to plan. Proposed discharge date: 06/10/18 PLAN: Discharge to the [facility]
[2018-06-08] MEDS: Tamsulosin HCl 0.4 MG Capsule PO (17:03)
[2018-06-08 20:41] VITALS: BP 112/64; PULSE 84; RESP 16; TEMP 36.6; O2SAT 95
[2018-06-09 05:45] LABS: Hematocrit 36.2 % (40-54); Hemoglobin 11.3 g/dl (13.0-16.5); Mean Corp Hgb Conc 31.2 g/gl (32-36); Mean Corpuscular Hgb 30.1 pg (27.0-32.0); Mean Corpuscular Volume 96.5 fL (80-94); Mean Platelet Vol. 10.4 fl (6.2-12.0); Platelet Count 95 K/mm3 (150-450); RBC Distribution Width CV 15.4 % (11.6-14.6); RBC Distribution Width SD 52.1 fl (35.1-43.9); Red Blood Count 3.75 M/mm3 (4.6-6.2); White Blood Count 7.8 K/mm3 (4.4-11.0)
[2018-06-09 05:49] LABS: Scan Indicated on CBC? Y/N NO
[2018-06-09] MEDS: Menthol/Lanolin/Calamine/Znox 113 GM Tube 1 APPLIC TOPICAL ×3 (06:03→23:11)
[2018-06-09 08:03] VITALS: BP 96/65; PULSE 88; RESP 18; TEMP 36.5; O2SAT 97
[2018-06-09] MEDS: Escitalopram Oxalate 10 MG Tablet PO (08:54)
[2018-06-09] MEDS: Pantoprazole Sodium 20 MG Tablet PO (08:54)
[2018-06-09] MEDS: guaiFENesin 600 MG Tablet PO ×2 (08:54→23:10)
[2018-06-09] MEDS: Multivitamins,Therapeutic Tablet 1 TABLET PO (08:55)
[2018-06-09] MEDS: Gabapentin 100 MG Capsule PO ×3 (08:55→17:01)
--- NOTE | 2018-06-09 10:05 | CASEMGMT ---
Team meeting held. Patient present. Discharge date set for 06/10/18. Patient to discharge to the [facility]. Patient agreeable to discharge plan and date. Patient to continue with further care and treatment until time of discharge. Patient requesting for transportation to be set up via wheelchair van. Support given. Telephone to [facility] transportation set up for 06/10/18 at 11:30am. Transportation form completed and placed with patient discharge information. Telephone call to the [facility]. This manager social communicating transportation time and date. Discharge information along with PASRR results faxed to the [facility]. Proposed discharge date: 06/10/18 PLAN: Discharge to the [facility]
[2018-06-09] MEDS: fentaNYL 25 MCG Patch TRANSDERM. (14:24)
--- NOTE | 2018-06-09 15:22 | PCM.RU.DC ---
Rehab Discharge Summary DATE OF ADMISSION: 05/21/18 DATE OF DISCHARGE: 06/10/18 - Rehab Diagnosis R hip Fracture, Laminectomy Patient Problems: Active and Suspected Problems Thrombocytopenia (Acute) - Physical Exam General: Alert, Oriented x3, Cooperative HEENT: Atraumatic, PERRLA, EOMI, Normocephalic Neck: Supple, No JVD, Negative Carotid Bruits Lungs: Clear to auscultation, Normal air movement Cardiovascular: Regular rate, No murmurs Abdomen: Bowel Sounds Present, Soft, Non Tender Extremities: No edema, Capillary Refill Less than 3 Seconds Skin: No rashes, No breakdown Musculoskeletal: No Tenderness to Palpation of Joints or Extremities Neurological: Cranial nerves II-XII grossly intact Psych/Mental Status: Normal Affect, Appropriate, Alert and oriented to time, place, person, mood and affect Vital Signs Temp Pulse Resp BP Pulse Ox 97.7 F L 88 18 96/65 97 06/09/18 08:03 06/09/18 08:03 06/09/18 08:03 06/09/18 08:03 06/09/18 08:03 Oxygen Delivery Method Room Air Weight: 75 kg Body Mass Index (BMI) 30.8 Intake and Output for Last 24 Hours 06/07/18 06/08/18 06/09/18 23:59 23:59 23:59 Intake Total 2480 / 2480 3170 / 3170 2540 / 2540 Output Total 1600 / 1600 3250 / 3250 1999 / 1999 Balance 880 / 880 -80 / -80 540 / 540 Laboratory Tests Past 24 Hrs 06/09/18 05:15 WBC 7.8 RBC 3.75 L Hgb 11.3 L Hct 36.2 L MCV 96.5 H MCH 30.1 MCHC 31.2 L RDW 15.4 H RDW Differential 52.1 H Plt Count 95 L MPV 10.4 Active Medications Bisacodyl (Dulcolax) 10 mg RECTAL .PRN X 1 PRN PRN Reason: Constipation Calamine/Phenol (Calmoseptine Ointment) 1 applic TOPICAL TID REPLACED BY [facility]; Protocol Last Admin: 06/09/18 13:11 Dose: 1 applicatio Emollient Ointment (Eucerin Intensive Repair) 1 applic TOPICAL BID@2200,0600 REPLACED BY [facility]; Protocol Last Admin: 06/09/18 06:04 Dose: 1 applicatio Ergocalciferol (Vitamin D) 50,000 unit PO Q7D REPLACED BY [facility] Last Admin: 06/05/18 07:58 Dose: 50,000 unit Escitalopram Oxalate (Lexapro) 10 mg PO DAILY REPLACED BY [facility] Last Admin: 06/09/18 08:54 Dose: 10 mg Fentanyl (Duragesic Patch) 25 mcg TRANSDERM. Q3D REPLACED BY [facility] Last Admin: 06/09/18 14:24 Dose: 25 mcg Gabapentin (Neurontin) 100 mg PO TIDCM REPLACED BY [facility] Last Admin: 06/09/18 11:33 Dose: 100 mg Guaifenesin (Mucinex) 600 mg PO BID REPLACED BY [facility] Last Admin: 06/09/18 08:54 Dose: 600 mg Hydrochlorothiazide (Hctz) 25 mg PO DAILY REPLACED BY [facility] Lisinopril (Zestril) 20 mg PO DAILY REPLACED BY [facility] Last Admin: 06/09/18 08:21 Dose: Not Given Magnesium Hydroxide (Milk Of Magnesia) 30 ml PO .PRN X 1 PRN PRN Reason: Constipation [facility] Last Admin: 06/09/18 08:55 Dose: 1 tablet Nutritional Formula (Mac - Lyman Flavor) [facility] Last Admin: 06/09/18 08:54 Dose: 1 packet Oxycodone HCl (Oxyir) 5 mg PO Q6H PRN PRN PRN Reason: PAIN Last Admin: 06/05/18 21:17 Dose: 5 mg Pantoprazole Sodium (Protonix) 20 mg PO DAILY REPLACED BY [facility] Last Admin: 06/09/18 08:54 Dose: 20 mg Senna/Docusate Sodium (Senokot-S, Marcie-Colace) 2 tablet PO BID PRN PRN Reason: CONSTIPATION Tamsulosin HCl (Flomax) 0.4 mg PO DAILY@1730 REPLACED BY [facility] Last Admin: 06/08/18 17:03 Dose: 0.4 mg Tizanidine HCl (Zanaflex) 4 mg PO Q8H PRN PRN PRN Reason: MUSCLE SPASM Last Admin: 06/08/18 22:15 Dose: 4 mg Home Medications: Medications to take at Discharge Omeprazole 20 mg PO DAILY 05/11/18 Ergocalciferol [Vitamin D] 50,000 unit PO Q7D 05/21/18 Guaifenesin [Mucinex] 600 mg PO BID 05/21/18 Lisinopril/Hydrochlorothiazide [Zestoretic 20/25 Tablet] 1 tablet PO DAILY 05/21/18 Multivitamins,Therapeutic [Multivitamin] 1 tablet PO DAILY 05/21/18 Bisacodyl [Dulcolax] 10 mg RECTAL .PRN X 1 PRN suppos. 06/09/18 Escitalopram Oxalate [Lexapro] 10 mg PO DAILY #30 tab 06/09/18 Gabapentin [Neurontin] 1 cap PO TID #90 cap 06/09/18 Hydrochlorothiazide [Hctz] 25 mg PO DAILY tablet 06/09/18 Lisinopril [Zestril] 20 mg PO DAILY tablet 06/09/18 Magnesium Hydroxide [Milk Of Magnesia] 30 ml PO .PRN X 1 PRN udc 06/09/18 Menthol/Lanolin/Calamine/Znox [Calmoseptine Ointment] 1 applic TOPICAL TID tube 06/09/18 Nutritional Supplement [Mac - ORANGE FLAVOR] 1 packet PO BIDCM packet 06/09/18 Oxycodone [Oxyir] 5 mg PO Q6H PRN PRN 7 Days #28 tab 06/09/18 Tamsulosin HCl [Flomax] 0.4 mg PO DAILY@1730 capsule 06/09/18 Tizanidine HCl [Zanaflex] 4 mg PO Q8H PRN PRN #30 tab 06/09/18 fentaNYL patch [Duragesic patch] 25 mcg TRANSDERM. Q3D 6 Days #2 patch 06/09/18 Following Prescrptions Were Given to Patient: Oxycodone [Oxyir] 5 mg PO Q6H PRN PRN 7 Days #28 tab PRN Reason: Pain Tizanidine HCl [Zanaflex] 4 mg PO Q8H PRN PRN #30 tab PRN Reason: Muscle Spasm Escitalopram Oxalate [Lexapro] 10 mg PO DAILY #30 tab fentaNYL patch [Duragesic patch] 25 mcg TRANSDERM. Q3D 6 Days #2 patch Gabapentin [Neurontin] 1 cap PO TID #90 cap Primary Care Physician: Yang Saul MD [Primary Care Provider] - Please Follow Up With: Salima Roque MD When: Wednesday Rehab Course The patient is a 62 year old M with a history of ankylosing spondylitis and a long history of chronic back pain in his mid back, he suffered a mechanical fall on 05/10/2018, requiring ORIF of his right hip on 05/12/18. Subsequently on 05/14/18 he was diagnosed with an epidural hematoma at T8, was transported to [facility] and underwent evacuation by orthospine on 05/15/18. He says his main complaint now is he continues to experience back pain which is similar but worse than his previous back pain. The pain however is not changed since his initial injury on 05/10. He also has weakness in his lower extremities and loss of sensation which has not improved as well as urinary retention and constipation. He is nonweightbearing. He says his arms are unaffected. He is frustrated by his condition and would like increase in his pain medications. We also discussed repeating CT of his thoracic spine to evaluate for recurrence of his hematoma which he agrees to. While in the Rehab Unit (RU) his other medical conditions were monitored. While in the RU he improved with therapy and gained strength. Summary of Care: - Physical therapy for transfers, he is nonweightbearing. - Occupational Therapy for ADLs - PRN analgesics - Bowel protocol - DVT prophylaxis: Transfer orders recommended Lovenox however given his thoracic hematoma and ongoing back pain we will limit his DVT prophylaxis to SCDs. Given platelet count (149)will continue to hold on starting Lovenox at this time, will re-address in the next day or two. - Encourage alcohol abstention - Continue antihypertensives - Proton pump inhibitor - Urinary retention: Alford catheter for now => Alford was d/c had high residual alford replaced consulted Urology - Constipation: Bowel protocol - Back pain: Repeat CT of his thoracic spine to increase fentanyl patch - May removed marie from right hip 2 weeks after surgery - marie removed, incision is well approximated is C/D, no redness or edema noted. - MRI brain -> shows resolution of PRES will not restart Keppra at this time - Get out of bed and into a chair an hour in the morning and an hour in the afternoon Summary of therapy Sessions: With Physical therapy, he is a moderate assist of one for turning in the bed or any bed mobility. He is a 2 persons assist for transfers using the sliding board, movement is painful. He does have some sensation returning to his legs. With Occupational therapy, he is able to do his personal care, feeding and grooming at set up level as long as he is in an upright sitting position. He is minimal assist for upper body dressing. He is total assist for lower body bathing, and dressing. With Nursing, his Alford was removed and replaced, he was to urinate some but still had high residuals or 850cc, and 650cc was straight cath both times. Urology was consulted he is currently on Flomax. He is also having muscle spasms in his lower back area was started him on Flexeril 4mg. Marie were removed from his right hip. Marie were removed on 06/05 from his neck area. Meaningful Use Info Meaningful Use Diagnoses (Choose all that apply): None applicable
--- NOTE | 2018-06-09 15:27 | DS.PCM_ITS ---
Rehab Discharge Summary DATE OF ADMISSION: 05/21/18 DATE OF DISCHARGE: 06/10/18 - Rehab Diagnosis R hip Fracture, Laminectomy Patient Problems: Active and Suspected Problems Thrombocytopenia (Acute) - Physical Exam General: Alert, Oriented x3, Cooperative HEENT: Atraumatic, PERRLA, EOMI, Normocephalic Neck: Supple, No JVD, Negative Carotid Bruits Lungs: Clear to auscultation, Normal air movement Cardiovascular: Regular rate, No murmurs Abdomen: Bowel Sounds Present, Soft, Non Tender Extremities: No edema, Capillary Refill Less than 3 Seconds Skin: No rashes, No breakdown Musculoskeletal: No Tenderness to Palpation of Joints or Extremities Neurological: Cranial nerves II-XII grossly intact Psych/Mental Status: Normal Affect, Appropriate, Alert and oriented to time, place, person, mood and affect Vital Signs Temp Pulse Resp BP Pulse Ox 97.7 F L 88 18 96/65 97 06/09/18 08:03 06/09/18 08:03 06/09/18 08:03 06/09/18 08:03 06/09/18 08:03 Oxygen Delivery Method Room Air Weight: 75 kg Body Mass Index (BMI) 30.8 Intake and Output for Last 24 Hours 06/07/18 06/08/18 06/09/18 23:59 23:59 23:59 Intake Total 2480 / 2480 3170 / 3170 2540 / 2540 Output Total 1600 / 1600 3250 / 3250 1999 / 1999 Balance 880 / 880 -80 / -80 540 / 540 Laboratory Tests Past 24 Hrs 06/09/18 05:15 WBC 7.8 RBC 3.75 L Hgb 11.3 L Hct 36.2 L MCV 96.5 H MCH 30.1 MCHC 31.2 L RDW 15.4 H RDW Differential 52.1 H Plt Count 95 L MPV 10.4 Active Medications Bisacodyl (Dulcolax) 10 mg RECTAL .PRN X 1 PRN PRN Reason: Constipation Calamine/Phenol (Calmoseptine Ointment) 1 applic TOPICAL TID [facility]; Protocol Last Admin: 06/09/18 13:11 Dose: 1 applicatio Emollient Ointment (Eucerin Intensive Repair) 1 applic TOPICAL BID@2200,0600 [facility]; Protocol Last Admin: 06/09/18 06:04 Dose: 1 applicatio Ergocalciferol (Vitamin D) 50,000 unit PO Q7D [facility] Last Admin: 06/05/18 07:58 Dose: 50,000 unit Escitalopram Oxalate (Lexapro) 10 mg PO DAILY [facility] Last Admin: 06/09/18 08:54 Dose: 10 mg Fentanyl (Duragesic Patch) 25 mcg TRANSDERM. Q3D [facility] Last Admin: 06/09/18 14:24 Dose: 25 mcg Gabapentin (Neurontin) 100 mg PO TIDCM [facility] Last Admin: 06/09/18 11:33 Dose: 100 mg Guaifenesin (Mucinex) 600 mg PO BID [facility] Last Admin: 06/09/18 08:54 Dose: 600 mg Hydrochlorothiazide (Hctz) 25 mg PO DAILY [facility] Lisinopril (Zestril) 20 mg PO DAILY [facility] Last Admin: 06/09/18 08:21 Dose: Not Given Magnesium Hydroxide (Milk Of Magnesia) 30 ml PO .PRN X 1 PRN PRN Reason: Constipation [facility]) [facility] Last Admin: 06/09/18 08:55 Dose: 1 tablet Nutritional Formula (Mac - [place] Flavor) [facility] Last Admin: 06/09/18 08:54 Dose: 1 packet Oxycodone HCl (Oxyir) 5 mg PO Q6H PRN PRN PRN Reason: PAIN Last Admin: 06/05/18 21:17 Dose: 5 mg Pantoprazole Sodium (Protonix) 20 mg PO DAILY [facility] Last Admin: 06/09/18 08:54 Dose: 20 mg Senna/Docusate Sodium (Senokot-S, Marcie-Colace) 2 tablet PO BID PRN PRN Reason: CONSTIPATION Tamsulosin HCl (Flomax) 0.4 mg PO DAILY@1730 [facility] Last Admin: 06/08/18 17:03 Dose: 0.4 mg Tizanidine HCl (Zanaflex) 4 mg PO Q8H PRN PRN PRN Reason: MUSCLE SPASM Last Admin: 06/08/18 22:15 Dose: 4 mg Home Medications: Medications to take at Discharge Omeprazole 20 mg PO DAILY 05/11/18 Ergocalciferol [Vitamin D] 50,000 unit PO Q7D 05/21/18 Guaifenesin [Mucinex] 600 mg PO BID 05/21/18 Lisinopril/Hydrochlorothiazide [Zestoretic 20/25 Tablet] 1 tablet PO DAILY 05/21/18 Multivitamins,Therapeutic [Multivitamin] 1 tablet PO DAILY 05/21/18 Bisacodyl [Dulcolax] 10 mg RECTAL .PRN X 1 PRN suppos. 06/09/18 Escitalopram Oxalate [Lexapro] 10 mg PO DAILY #30 tab 06/09/18 Gabapentin [Neurontin] 1 cap PO TID #90 cap 06/09/18 Hydrochlorothiazide [Hctz] 25 mg PO DAILY tablet 06/09/18 Lisinopril [Zestril] 20 mg PO DAILY tablet 06/09/18 Magnesium Hydroxide [Milk Of Magnesia] 30 ml PO .PRN X 1 PRN udc 06/09/18 Menthol/Lanolin/Calamine/Znox [Calmoseptine Ointment] 1 applic TOPICAL TID tube 06/09/18 Nutritional Supplement [Mac - ORANGE FLAVOR] 1 packet PO BIDCM packet 06/09/18 Oxycodone [Oxyir] 5 mg PO Q6H PRN PRN 7 Days #28 tab 06/09/18 Tamsulosin HCl [Flomax] 0.4 mg PO DAILY@1730 capsule 06/09/18 Tizanidine HCl [Zanaflex] 4 mg PO Q8H PRN PRN #30 tab 06/09/18 fentaNYL patch [Duragesic patch] 25 mcg TRANSDERM. Q3D 6 Days #2 patch 06/09/18 Following Prescrptions Were Given to Patient: Oxycodone [Oxyir] 5 mg PO Q6H PRN PRN 7 Days #28 tab PRN Reason: Pain Tizanidine HCl [Zanaflex] 4 mg PO Q8H PRN PRN #30 tab PRN Reason: Muscle Spasm Escitalopram Oxalate [Lexapro] 10 mg PO DAILY #30 tab fentaNYL patch [Duragesic patch] 25 mcg TRANSDERM. Q3D 6 Days #2 patch Gabapentin [Neurontin] 1 cap PO TID #90 cap Primary Care Physician: Yang Saul MD [Primary Care Provider] - Please Follow Up With: Salima Roque MD When: Wednesday Rehab Course The patient is a 62 year old M with a history of ankylosing spondylitis and a long history of chronic back pain in his mid back, he suffered a mechanical fall on 05/10/2018, requiring ORIF of his right hip on 05/12/18. Subsequently on 05/14/18 he was diagnosed with an epidural hematoma at T8, was transported to [facility] and underwent evacuation by orthospine on 05/15/18. He says his main complaint now is he continues to experience back pain which is similar but worse than his previous back pain. The pain however is not changed since his initial injury on 05/10. He also has weakness in his lower extremities and loss of sensation which has not improved as well as urinary retention and constipation. He is nonweightbearing. He says his arms are unaffected. He is frustrated by his condition and would like increase in his pain medications. We also discussed repeating CT of his thoracic spine to evaluate for recurrence of his hematoma which he agrees to. While in the Rehab Unit (RU) his other medical conditions were monitored. While in the RU he improved with therapy and gained strength. Summary of Care: - Physical therapy for transfers, he is nonweightbearing. - Occupational Therapy for ADLs - PRN analgesics - Bowel protocol - DVT prophylaxis: Transfer orders recommended Lovenox however given his thoracic hematoma and ongoing back pain we will limit his DVT prophylaxis to SCDs. Given platelet count (149)will continue to hold on starting Lovenox at this time, will re-address in the next day or two. - Encourage alcohol abstention - Continue antihypertensives - Proton pump inhibitor - Urinary retention: Alford catheter for now => Alford was d/c had high residual alford replaced consulted Urology - Constipation: Bowel protocol - Back pain: Repeat CT of his thoracic spine to increase fentanyl patch - May removed marie from right hip 2 weeks after surgery - marie removed, incision is well approximated is C/D, no redness or edema noted. - MRI brain -> shows resolution of PRES will not restart Keppra at this time - Get out of bed and into a chair an hour in the morning and an hour in the afternoon Summary of therapy Sessions: With Physical therapy, he is a moderate assist of one for turning in the bed or any bed mobility. He is a 2 persons assist for transfers using the sliding board, movement is painful. He does have some sensation returning to his legs. With Occupational therapy, he is able to do his personal care, feeding and grooming at set up level as long as he is in an upright sitting position. He is minimal assist for upper body dressing. He is total assist for lower body bathing, and dressing. With Nursing, his Alford was removed and replaced, he was to urinate some but still had high residuals or 850cc, and 650cc was straight cath both times. Urology was consulted he is currently on Flomax. He is also having muscle spasms in his lower back area was started him on Flexeril 4mg. Marie were removed from his right hip. Marie were removed on 06/05 from his neck area. Meaningful Use Info Meaningful Use Diagnoses (Choose all that apply): None applicable
[2018-06-09 15:29] VITALS: BP 115/66; PULSE 110; RESP 16; TEMP 36.6; O2SAT 97
--- NOTE | 2018-06-09 15:29 | DCINST_ITS ---
- Discharge Diagnoses Current Active Problems: Current Active and Chronic Problems Thrombocytopenia (Acute) Reason(s) for Visit for Discharge Instructions: Right hip fracture, Laminectomy You will use the following diet at home:: Regular Your food should be the consistency of: Regular Your liquids should be the consistency of: Regular/Thin Discharge Activity: May Not Drive, May not drive while taking narcotic pain m edications., May Shower Weight Bearing Status: Weight bearing as tolerated Call your doctor if you observe: Fever of 101 or Higher, Coldness, Increased Pain, Numbness or Tingling, Change in Color, Inability to urinate, Inability to have a bowel movement, Using more than one pad per hour, Shortness of breath, Dizziness, Fainting spells, Swelling in the ankles, Chest pain, Prolonged hiccoughing, Increased palpitations (irregular heartbeat), Calf discomfort, Uncontrolled pain Allergies/Adverse Reactions: Allergies wool Allergy (Verified 05/22/18 15:56) Rash Medications to take at Discharge Omeprazole 20 mg PO DAILY 05/11/18 Ergocalciferol [Vitamin D] 50,000 unit PO Q7D 05/21/18 Guaifenesin [Mucinex] 600 mg PO BID 05/21/18 Lisinopril/Hydrochlorothiazide [Zestoretic 20/25 Tablet] 1 tablet PO DAILY 05/21/18 Multivitamins,Therapeutic [Multivitamin] 1 tablet PO DAILY 05/21/18 Bisacodyl [Dulcolax] 10 mg RECTAL .PRN X 1 PRN suppos. 06/09/18 Escitalopram Oxalate [Lexapro] 10 mg PO DAILY #30 tab 06/09/18 Gabapentin [Neurontin] 1 cap PO TID #90 cap 06/09/18 Hydrochlorothiazide [Hctz] 25 mg PO DAILY tablet 06/09/18 Lisinopril [Zestril] 20 mg PO DAILY tablet 06/09/18 Magnesium Hydroxide [Milk Of Magnesia] 30 ml PO .PRN X 1 PRN udc 06/09/18 Menthol/Lanolin/Calamine/Znox [Calmoseptine Ointment] 1 applic TOPICAL TID tube 06/09/18 Nutritional Supplement [Mac - ORANGE FLAVOR] 1 packet PO BIDCM packet 06/09/18 Oxycodone [Oxyir] 5 mg PO Q6H PRN PRN 7 Days #28 tab 06/09/18 Tamsulosin HCl [Flomax] 0.4 mg PO DAILY@1730 capsule 06/09/18 Tizanidine HCl [Zanaflex] 4 mg PO Q8H PRN PRN #30 tab 06/09/18 fentaNYL patch [Duragesic patch] 25 mcg TRANSDERM. Q3D 6 Days #2 patch 06/09/18 The following prescriptions were given: Oxycodone [Oxyir] 5 mg PO Q6H PRN PRN 7 Days #28 tab PRN Reason: Pain Tizanidine HCl [Zanaflex] 4 mg PO Q8H PRN PRN #30 tab PRN Reason: Muscle Spasm Escitalopram Oxalate [Lexapro] 10 mg PO DAILY #30 tab fentaNYL patch [Duragesic patch] 25 mcg TRANSDERM. Q3D 6 Days #2 patch Gabapentin [Neurontin] 1 cap PO TID #90 cap Primary Care Physician: Yang Saul MD [Primary Care Provider] - Test Results: Test results from this visit will be discussed in further detail at your follow- up appointment, if applicable. Please Follow Up With: Salima Roque MD When: Wednesday Proposed Discharge Date: 06/10/18
[2018-06-09] MEDS: Tamsulosin HCl 0.4 MG Capsule PO (17:01)
[2018-06-09] MEDS: tiZANidine HCl 2 MG Tablet 4 MG PO (17:03)
[2018-06-09 21:06] VITALS: BP 115/76; PULSE 104; RESP 18; TEMP 36.8; O2SAT 97
[2018-06-10] MEDS: tiZANidine HCl 2 MG Tablet 4 MG PO (05:00)
[2018-06-10] MEDS: Menthol/Lanolin/Calamine/Znox 113 GM Tube 1 APPLIC TOPICAL (05:39)
[2018-06-10 06:27] LABS: Hematocrit 35.4 % (40-54); Hemoglobin 10.9 g/dl (13.0-16.5); Mean Corp Hgb Conc 30.8 g/gl (32-36); Mean Corpuscular Hgb 29.9 pg (27.0-32.0); Mean Platelet Vol. 10.6 fl (6.2-12.0); Platelet Count 85 K/mm3 (150-450); RBC Distribution Width CV 15.1 % (11.6-14.6); RBC Distribution Width SD 51.6 fl (35.1-43.9); Red Blood Count 3.65 M/mm3 (4.6-6.2); White Blood Count 7.3 K/mm3 (4.4-11.0)
[2018-06-10 06:37] LABS: Scan Indicated on CBC? Y/N NO
[2018-06-10] MEDS: hydroCHLOROthiazide 25 MG Tablet PO (08:25)
[2018-06-10] MEDS: Pantoprazole Sodium 20 MG Tablet PO (08:25)
[2018-06-10] MEDS: guaiFENesin 600 MG Tablet PO (08:25)
[2018-06-10] MEDS: Gabapentin 100 MG Capsule PO (08:25)
[2018-06-10] MEDS: Lisinopril 20 MG Tablet PO (08:26)
[2018-06-10] MEDS: Escitalopram Oxalate 10 MG Tablet PO (08:26)
[2018-06-10] MEDS: Multivitamins,Therapeutic Tablet 1 TABLET PO (08:26)
[2018-06-10 08:29] VITALS: BP 115/66; PULSE 110; RESP 16; TEMP 36.6; O2SAT 97
[2018-06-10 08:30] VITALS: PULSE 110
--- NOTE | 2018-06-10 13:58 | NURSING ---
[address] gave report to [facility]
== END 2018-06-10 12:00 | disposition skilled nursing facility (03) | DRG 949 ==
PROVIDERS: Nurse Practitioner Acute Care; Psychiatry & Neurology Neurology; Admitting Provider Psychiatry & Neurology Neurology; Family Provider Family Medicine; PCP Family Medicine; Visit Provider Internal Medicine
DX: S24.15 Other incomplete lesions of thoracic spinal cord (principal); G82.20 Paraplegia, unspecified; S72.101D Unspecified trochanteric fracture of right femur, subsequent encounter for closed fracture with routine healing; W19.XXXD Unspecified fall, subsequent encounter; M43.24 Fusion of spine, thoracic region; S22.069D Unspecified fracture of T7-T8 vertebra, subsequent encounter for fracture with routine healing; F10.21 Alcohol dependence, in remission; L40.9 Psoriasis, unspecified; G89.29 Other chronic pain; F17.210 Nicotine dependence, cigarettes, uncomplicated; I10 Essential (primary) hypertension; M45.7 Ankylosing spondylitis of lumbosacral region; R33.9 Retention of urine, unspecified; K59.00 Constipation, unspecified; D69.6 Thrombocytopenia, unspecified
CPT/HCPCS: 36415; 70551; 72128; 73502; 80048; 80053; 85025; 85027; 85049; 97110; 97112; 97162; 97167; 97530; 97535; 97542; 97802

== ENCOUNTER → 2018-09-16 05:00 | Outpatient (REF) | payer SELFPAY ==
[2018-07-21 14:43] VITALS: BMI 25.3
[2018-09-16 08:26] LABS: Hematocrit 40.4 % (40-54); Hemoglobin 12.6 g/dl (13.0-16.5); Mean Corp Hgb Conc 31.2 g/gl (32-36); Mean Corpuscular Hgb 24.9 pg (27.0-32.0); Mean Corpuscular Volume 79.8 fL (80-94); Mean Platelet Vol. 9.9 fl (6.2-12.0); Platelet Count 209 K/mm3 (150-450); RBC Distribution Width CV 16.4 % (11.6-14.6); RBC Distribution Width SD 47.4 fl (35.1-43.9); Red Blood Count 5.06 M/mm3 (4.6-6.2); White Blood Count 11.5 K/mm3 (4.4-11.0)
[2018-09-16 08:29] LABS: Scan Indicated on CBC? Y/N NO
[2018-09-16 08:32] LABS: Anion Gap 7 (5-15); BUN 15 mg/dL (7-18); BUN/Creat Ratio 26.3 RATIO (10-20); Calcium,Total 9.1 mg/dL (8.5-10.1); Chloride 101 mmol/L (98-107); Creatinine, Serum 0.57 mg/dL (0.70-1.30); EST Glomerular Filtration Rate 154 mL/min (>60); Est Glom Filt Rate - Afr Amer 186 mL/min (>60); Glucose 105 mg/dL (74-106); Sodium Level 139 mmol/L (136-145)
== END ==
LOC: OLS.AVED 05:00
PROVIDERS: Visit Provider Family Medicine
DX: D69.6 Thrombocytopenia, unspecified (principal); R29.6 Repeated falls; Z87.81 Personal history of (healed) traumatic fracture
CPT/HCPCS: 36415; 80048; 85027

== ENCOUNTER 2018-11-03 02:38 | Inpatient (IN) | payer MEDICARE, SELFPAY ==
[2018-07-21 14:43] VITALS: BMI 25.3
[2018-11-03] VITALS (38 sets, daily range): BP systolic 55–119; BP diastolic 33–71; PULSE 105–155; RESP 2–39; TEMP 36.4–39.6; O2SAT 93–100; BMI 29.5; BMI 27.1; BMI 27.2
--- NOTE | 2018-11-03 02:57 | ED.RN ---
PT WITH INDWELLING ORNELAS CATHETER IN PLACE ON ARRIVAL TO ED. CLOUDY, BLOODY URINE PRESENT IN CATHETER TUBING. PT WITH BLOOD AROUND URINARY MEATUS. PT ON LEVAQUIN AT [facility], STAFF UNSURE WHY.
--- NOTE | 2018-11-03 03:03 | RAD_ITS ---
STUDY: X-RAY CHEST REASON FOR EXAM: Male, 62 years old. Chest pain and shortness of breath TECHNIQUE: AP portable COMPARISON: 05/12/2018 FINDINGS: Left lung remains clear. There is minimal fluid tracking in the right minor fissure. The right lung otherwise demonstrates no focal consolidative changes. Normal size heart. Normal mediastinum and bernice. Normal visualized pulmonary arteries. Normal visualized aortic arch and descending thoracic aorta. There is bilateral posterior fixation of the thoracic spine. There is no demonstrated abnormality of the visualized soft tissue structures of the upper abdomen. RAD/Chest 1 View (Portable) IMPRESSION: Minimal fluid tracking in the right minor fissure. Interval posterior thoracic spinal fixation. No focal lung consolidative changes. Electronically Signed: Azar Marino, at 3:41 EDT Tel , Service support ,
--- NOTE | 2018-11-03 03:03 | EKG12_ITS ---
Test Reason : CP Blood Pressure : / mmHG Vent. Rate : 137 BPM Atrial Rate : 137 BPM P-R Int : 142 ms QRS Dur : 076 ms QT Int : 282 ms P-R-T Axes : 056 -22 054 degrees QTc Int : 425 ms Sinus tachycardia Otherwise normal ECG Confirmed by TANVIR MATT ([id number]), commissioning editor CJ BACH ([id number]) on 11/07/2018 1:19:07 PM Referred By: Guillermo Park Confirmed By:SELINA MATT
--- NOTE | 2018-11-03 03:06 | ED.VIS.GEN ---
History of Present Illness Chief Complaint: Chest Pain Informant: Patient Narrative: Patient presents with chest pain since 4 PM approximately 11 hours ago. He states his been on and off tightness across his chest. It lasts for an hour and goes away for 15 to 20 minutes and then comes back. He is never had this before. Current severity is mild. No treatment at the residential. It is associated with some shortness of breath. He was placed on oxygen. His pulse ox was in the 70s when EMS arrived. Patient had a chest x-ray yesterday that he reported was normal. He is on levofloxacin per residential paperwork but it is unsure why he is on that. He has a chronic Louise catheter due to neurogenic bladder. He stated it was changed this month sometime. The patient is a chronic paraplegic due to a spinal cord injury multiple years ago. He is a DO NOT RESUSCITATE comfort care only. Patient stated he has not had a mild cough and nasal congestion. He is never had a blood clot. He is never had a history of coronary artery disease. He is never had a heart cath. He is not on blood thinning medications. Patient also stated since yesterday his abdomen has become more distended. He has not eaten much today due to this. 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 Status: Chronic (6) Thrombocytopenia Status: Chronic (7) Fall Status: Resolved (8) Rhabdomyolysis Status: Resolved (9) Seizure Status: Inactive Past Medical History - Allergies and Home Meds Allergies/Adverse Reactions: Allergies wool Allergy (Severe, Verified 11/03/18 02:40) Other UNABLE TO BREATH NSAIDS (Non-Steroidal Anti-Inflamma Allergy (Verified 11/03/18 02:40) Rash Primary Care Physician: Rohith Roldan MD [Primary Care Provider] - Prior records reviewed: Yes Surgical History: - - Reviewed Lives: Shelter Smoking Status: Former smoker Alcohol: None Drugs: None - Family History Maternal Family History: Family History (Last Updated 07/21/18 @ 14:39 by Anna Sapp) Mother Diabetes Father Heart disease Family History: Reports: No pertinent history Review of Systems General: Denies: Chills, Fever, Sweats Eyes: Denies: Visual changes - bilaterally, Diplopia ENT: Denies: Rhinorrhea, Sore throat Cardiovascular: Reports: Chest pain. Denies: Palpitations Respiratory: Reports: Dyspnea, Cough. Denies: Dyspnea on exertion Gastrointestinal: Denies: Abdominal pain, Nausea, Vomiting, Diarrhea, Melena, Hematochezia Genitourinary: Denies: Dysuria, Hematuria, Frequency Musculoskeletal: Denies: Back pain Skin: Denies: Rash, Wounds Neurological: Reports: Weakness, - - Chronic paraplegia of the lower extremities bilateral. Denies: Headache, Numbness Physical Exam Vital Signs/Narrative: Vital Signs Temp Pulse Resp BP Pulse Ox 11/03/18 02:46 98.0 F 137 H 25 H 59/33 L 97 11/03/18 02:41 98.0 F 137 H 24 H 59/33 L 98 General: Well nourished, - - Paraplegia. Negative for: Well developed, No Acute Distress Head: Normocephalic, Atraumatic Eyes: Perrl, EOMI ENT: Moist mucous membranes, No rhinorrhea Neck: Supple, Nontender Cardiovascular: Regular rhythm, No murmurs, Tachycardia. Negative for: Regular rate Respiratory: CTA bilaterally, Chest nontender, - - Tachypnea. Negative for: No distress, Rales, Rhonchi, Wheezing, Retractions, Chest tenderness Abdomen: Soft, Nontender, Normal bowel sounds, - - Positive abdominal distention. Positive tympanitic abdomen. No fluid wave.. Negative for: Nondistended : - - Chronic Louise catheter in his bladder. Positive mucoid bloody urine discharge Back: Nontender, - - Stage III decubitus ulcer over his sacrum. No evidence of cellulitis.. Negative for: Normal Inspection Extremities: Nontender, No edema, - - Chronic paralysis of his bilateral lower extremities Skin: Normal color, No rash Neurological: Alert, Oriented x3, Cranial nerves II-XII grossly intact. Negative for: Normal Strength, Normal Sensation Psychological: Normal affect, Normal Mood Diagnostic/Tx/Re-eval - Medical Decision Making EKG obtained shows sinus tachycardia at 137. No acute ischemia. Patient given IV fluids. I think he likely has urosepsis. Initial blood pressure is low. Patient placed on nasal cannula oxygen. Lab work obtained. Louise catheter changed chest x-ray obtained. Patient remained hypotensive but blood pressure up into the 80s. Lactate is greater than 5. Patient has acute renal failure with elevated creatinine greater than 4. Patient given 3 fluid boluses in the ED. Chest x-ray shows no acute pneumonia. Urinalysis shows white blood cells and 1+ bacteria. Cultures of his blood and urine sent. I feel the source of his sepsis is likely from his urine. Patient is DNR comfort care only. I do not feel he needs pressors at this time. We will continue hydration. Started on Zosyn and vancomycin. Discussed with the hospitalist and will be admitted. I do not feel his sacral decubitus ulcer is infected. - Critical Care Time Critical care time (excluding procedures): 30-74 minutes ED Disposition - Plan for ED Patient: Disposition: Home or Assisted Living Diagnosis: Septic shock, Acute renal failure, Severe dehydration, Lactic acidosis, Hypoxia, Bloating Referrals: Rohith Roldan MD [Primary Care Provider] -
[2018-11-03 03:21] LABS: International Normalized Ratio 1.7; Prothrombin Time (Protime)PT. 20.2 SECONDS (11.7-14.9)
[2018-11-03 03:22] LABS: Partial Thromboplast Time 37.7 Seconds (24.1-36.2)
[2018-11-03] MEDS: 0.9% Normal Saline 1,000 ML IV.SOLN. 1000 ML IV (03:22)
[2018-11-03 03:24] LABS: Absolute Lymphocyte Count 0.61 X10^3/ul (0.83-4.51); Absolute Neutrophil Count 17.8 X10^3/uL (2.0-7.7); Basophil# 0.02 X10^3/uL; Basophil% 0.1 % (0-1); Eosinophil# 0.01 X10^3/uL; Hematocrit 38.4 % (40-54); Hemoglobin 12.3 g/dl (13.0-16.5); Lymphocyte # 0.61 X10^3/ul (4.0); Mean Corpuscular Hgb 25.6 pg (27.0-32.0); Mean Corpuscular Volume 79.8 fL (80-94); Mean Platelet Vol. 10.7 fl (6.2-12.0); Monocyte# 1.35 X10^3/uL; Monocyte% 6.7 % (0-10); Neutrophil # 17.76 X10^3/uL (2.7-7.7); Neutrophil % 87.6 % (47-70); Platelet Count 141 K/mm3 (150-450); RBC Distribution Width CV 18.2 % (11.6-14.6); RBC Distribution Width SD 52.9 fl (35.1-43.9); Red Blood Count 4.81 M/mm3 (4.6-6.2); White Blood Count 20.3 K/mm3 (4.4-11.0)
[2018-11-03 03:25] LABS: Differential Indicated SCAN CRITERIA MET; POSITIVE COUNT YES; POSITIVE DIFFERENTIAL NO; POSITIVE MORPHOLOGY YES
--- NOTE | 2018-11-03 03:29 | ED.RN ---
Addendum entered by Evie Villafana 11/03/18 03:53: coccyx wound stage 4. Original Note: PT ARRIVES TO ED FROM ECG WITH ATTEND SOILED IN BM. PT CLEANED WITH BATH WIPES, BED LINENS CHANGED, NEW ATTENDS PLACED. MEPILEX DRESSING PLACED ON COCCYX WOUND. PT WITH COCCYX WOUND MEASURING [id number]. PT FEET PLACED IN BILATERAL BOOTIES. PT REPORT BILATERAL HEEL WOUNDS ALSO. HEELS ARE WRAPPED WITH KERLEX DRESSINGS. PT REPORTS INDWELLING CATHETER HAS NOT BEEN CHANGED FOR A COUPLE MONTHS. PRESSURE INJURY TO LEFT KNEE NON BLANCHING ON ARRIVAL TO ED. PT REPORTS BACK PAIN.
[2018-11-03 03:35] LABS: ALB/GLOB Ratio 0.4 RATIO (0.9-2.4); AST(SGOT) 64 U/L (15-37); Alanine Aminotransfer ALT/SGPT 36 U/L (16-61); Alkaline Phosphatase 145 U/L (45-117); Anion Gap 18 (5-15); BUN 72 mg/dL (7-18); BUN/Creat Ratio 15.1 RATIO (10-20); Calcium,Total 8.2 mg/dL (8.5-10.1); Chloride 94 mmol/L (98-107); Creatinine, Serum 4.76 mg/dL (0.70-1.30); EST Glomerular Filtration Rate 13 mL/min (>60); Est Glom Filt Rate - Afr Amer 16 mL/min (>60); Estimated Creatinine Clearance 15.24 ml/min; Globulin 5.6 g/dL (2.2-4.2); Glucose 104 mg/dL (74-106); Potassium 5.5 mmol/L (3.5-5.1); Protein, Total 7.6 g/dL (6.4-8.2); Sodium Level 134 mmol/L (136-145)
--- NOTE | 2018-11-03 03:35 | ED.RN ---
PT ARRIVES WITH INDWELLING ORNELAS FROM ECF. PT CATHETER CHANGED TO NEW ONE IN ED.
[2018-11-03 03:36] LABS: Lactic Acid 5.7 mmol/L (0.4-2.0)
[2018-11-03 03:37] LABS: Differential Comment SCANNED
[2018-11-03 03:38] LABS: Vacuolated Cells 2+
--- NOTE | 2018-11-03 03:38 | ED.RN ---
DR PATTON AWARE OF PT'S LACTIC ACID OF 5.7
[2018-11-03 03:47] LABS: Squamous Epithelial Cells - UA 0 SEEN /hpf (0-5)
[2018-11-03 03:53] LABS: Color, Urine SEE COMMENT BELOW (Yellow); Glucose, Dipstick Normal (Normal); Ketone-Dipstick Negative (Negative); Leukocyte Esterase-Dipstick 500 /ul (Negative); Nitrite-Dipstick Negative (Negative); Occult Blood-Urine 250 /ul (Negative); Protein-Dipstick 100 mg/dl (Negative); Specific Gravity, Urine 1.005 (1.002-1.030); Urine Bilirubin Dipstick Negative (Negative); Urine Clarity Sl. Cloudy (Clear); Urine Urobilinogen Normal (Normal)
[2018-11-03 03:59] LABS: Bacteria 1+ /hpf (None Seen); Mucous, Urine 1+ /hpf (<or=2+); Red Blood Cells-Urine 5-10 SEEN /hpf (0-5); White Blood Cells 25-50 SEEN /hpf (0-5)
[2018-11-03] MEDS: 0.9% Normal Saline 1,000 ML 1000 ML IV ×2 (04:00→05:03)
--- NOTE | 2018-11-03 04:09 | CT_ITS ---
STUDY: CT ABDOMEN AND PELVIS WITHOUT CONTRAST REASON FOR EXAM: Male, 62 years old. Abdominal pain and bloating. History of testicular cancer RADIATION DOSAGE (If Supplied By Facility): CTDIvol = ( 16.96 ) mGy, DLP = ( 1025.55 ) mGycm TECHNIQUE: Transaxial images were obtained from the dome of the diaphragm to the symphysis pubis without oral contrast, and without intravenous contrast. Sagittal and coronal images were reconstructed. Individualized dose optimization techniques were used for this CT. COMPARISON: None. FINDINGS: The visualized lung bases are unremarkable. The visualized portions of the heart are within normal limits. Normal liver. Cholelithiasis is visualized. Normal spleen. Normal pancreas. Normal bilateral adrenal glands. There is a nonobstructive right renal pelvic calculus measuring approximately 7 mm. There is an anterior simple left renal cyst measuring approximately 5 cm in diameter. Normal visualized stomach. Normal small intestine. There is moderate retained stool in the colon and rectum. The appendix is not visualized however no evidence for appendicitis. There is diffuse atherosclerotic calcification of the abdominal aorta, without a demonstrated aneurysm. Normal inferior vena cava. Normal retroperitoneum. The urinary bladder is drained with Louise catheter. Normal abdominal wall. There is diffuse osteopenia. Posterior fixation of the thoracic spine is partially visualized. There is also intramedullary sue fixation of the proximal right femur. CT/Abdomen/Pelvis without Cont IMPRESSION: Negative unenhanced CT of the abdomen and pelvis for acute abnormality Nonobstructive right renal pelvic calculus. Moderate retained stool within the colon and rectum. Correlate for constipation. Cholelithiasis. Louise catheter drainage of the urinary bladder. Electronically Signed: Azar Marino, at 5:14 EDT Tel , Service support ,
--- NOTE | 2018-11-03 05:08 | ED.RN ---
PATIENT WAS INCONTINENT OF LARGE SOFT BROWN STOOL. INCONTINENCE CARE DONE. THIS NURSE NOTED A SMALL OPEN HOLE DECUBI THAT LOOK LIKE IT COULD POSSIBLY BE TUNNELING.
--- NOTE | 2018-11-03 05:35 | HP.PCM_ITS ---
Problem List (1) Septic shock Status: Acute (2) Acute renal failure Status: Acute (3) Severe dehydration Status: Acute (4) Lactic acidosis Status: Acute History of Present Illness Date of Admission: 11/03/18 Chief Complaint: sob The patient is a 62 year old M with a significant history of paraplegia; and with a Chronic Louise catheter; chronic atrial fibrillation who presented to the emergency department because of shortness of breath that started 3 days ago. Associated with his symptoms is productive cough of clear sputum. Further, patient feels that his abdomen is bloated. On presentation patient had tachypnea; tachycardia and severely low blood pressure. Also his lactic acid was 5.7 and his creatinine was severely elevated at 4.76. With patient receiving IV fluids per septic shock protocol he only had minimal urine output. His urine was grossly abnormal. Past Medical History Past Medical History (Chronic Problems): Chronic Problems (Last Updated 07/21/18 @ 14:54 by Anna Sapp) Anemia (Chronic) Ankylosing spondylitis of lumbosacral region (Chronic) Psoriasis (Chronic) Chronic neck and back pain (Chronic) 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) Thrombocytopenia (Chronic) Medical History: Medical History (Last Reviewed 11/03/18 @ 08:23 by Guillermo Park MD) EXPLORATORY SURGERY Fracture, ribs S22.39XA 1988 Fractured nose S02.2XXA Hard of hearing H91.90 PARAPLEGIC 05-11-18 Psoriasis L40.9 Testicle cancer C62.90 Chronic neck and back pain M54.2, M54.9, G89.29 Allergies wool Allergy (Severe, Verified 11/03/18 02:40) Other UNABLE TO BREATH NSAIDS (Non-Steroidal Anti-Inflamma Allergy (Verified 11/03/18 02:40) Rash Home Medications: Ambulatory Orders Medication Instructions Recorded Albuterol Aerosols [Ventolin 2.5 mg INHALATION Q6H PRN PRN 11/03/18 Aerosols] Bisacodyl 10 mg RC DAILY PRN PRN 11/03/18 Cholecalciferol (Vitamin D3) 50,000 unit PO GENAO 11/03/18 [Vitamin D] DiphenhydrAMINE [Benadryl] 50 mg PO Q6H PRN 11/03/18 Escitalopram Oxalate 10 mg PO DAILY 11/03/18 Guaifenesin [Mucinex] 600 mg PO BID 11/03/18 Hydrocortisone 1% Crm [Hytone] 1 applic TOPICAL BID 11/03/18 Levofloxacin [Levaquin] 500 mg PO DAILY 11/03/18 Lisinopril [Zestril] 10 mg PO DAILY 11/03/18 Magnesium Hydroxide [Milk Of 30 ml PO DAILY PRN PRN 11/03/18 Magnesia] Methocarbamol 1,500 mg PO TID 11/03/18 Multivitamin [Once Daily] 1 each PO DAILY 11/03/18 Nystatin Powder [Mycostatin Powder] 1 applic TOPICAL DAILY 11/03/18 Omeprazole 20 mg PO DAILY 11/03/18 Tizanidine HCl 4 mg PO Q8H 11/03/18 traMADol [Ultram (G)] 50 mg PO Q6H PRN PRN 11/03/18 Surgical History: Surgical History (Last Reviewed 11/03/18 @ 08:23 by Guillermo Park MD) History of removal of testicle Z90.79 1978 Surgical History: - - Reviewed Lives: Retirement Smoking Status: Former smoker Alcohol: None Drugs: None - *Family History Maternal Family History: Family History (Last Reviewed 11/03/18 @ 08:23 by Guillermo Park MD) Mother Diabetes Father Heart disease History Items: No pertinent history Review of Systems Constitutional: Denies: Chills, Fever, Weight Change HEENT: Denies: Head Aches, Sinus Congestion, Sinus Drainage Cardiovascular: Denies: Chest Pain, Palpitations Respiratory: Reports: Cough, Shortness of Breath, Sputum production. Denies: Shortness of breath at rest Gastrointestinal: Denies: Abdominal Pain, Nausea, Vomiting Genitourinary: Denies: Dysuria Musculoskeletal: Denies: Joint Pain, Joint Tenderness Skin: Denies: Rash, Wounds Neurological: Denies: Numbness, Tingling, Focal weakness Psychiatric: Denies: Homicidal Ideations, Suicidal Ideations Hematologic/ Lymphatic: Denies: Easy Bruising, Easy Bleeding VTE Information - Inpt Only VTE Present on Admission: No VTE Mechan Device Prophylaxis: None VTE Pharm Prophylaxis ordered?: Yes Patient Problems: Active and Suspected Problems (Last Updated 07/21/18 @ 14:54 by Anna Sapp) Septic shock (Acute) Acute renal failure (Acute) Severe dehydration (Acute) Lactic acidosis (Acute) Hypoxia (Acute) Bloating (Acute) - Physical Exam General: Alert, Oriented x3, Cooperative HEENT: Atraumatic, PERRLA, EOMI, Normocephalic Neck: Supple, No JVD, Negative Carotid Bruits Lungs: Rales - mild, Tachypneic, Wheezes - mild Cardiovascular: No murmurs, Tachycardic Abdomen: Soft, Hyperactive Bowel Sounds, - - Distended Extremities: No edema, Capillary Refill Less than 3 Seconds Skin: Ulcer/ Wound - at coccyx. Also with wound on bilateral heels and excoriations of bilateral legs., - Musculoskeletal: No Tenderness to Palpation of Joints or Extremities Neurological: Cranial nerves II-XII grossly intact, - - Reduced range of motion of left upper extremities. Full range of motion of right upper extremities. Patient was unable to move bilateral lower legs. Psych/Mental Status: Normal Affect, Appropriate Vital Signs Temp Pulse Resp BP Pulse Ox 98.0 F 135 H 32 H 72/62 L 95 11/03/18 05:03 11/03/18 05:03 11/03/18 05:03 11/03/18 05:03 11/03/18 05:03 Oxygen Flow Rate (L/min) 3 Oxygen Delivery Method Nasal Cannula Weight: 85.4 kg Body Mass Index (BMI) 29.5 Laboratory Tests Past 24 Hrs 11/03/18 11/03/18 11/03/18 02:55 02:55 02:55 WBC 20.3 H RBC 4.81 Hgb 12.3 L Hct 38.4 L MCV 79.8 L MCH 25.6 L MCHC 32.0 RDW 18.2 H RDW Differential 52.9 H Plt Count 141 L MPV 10.7 Immature Gran % (Auto) 2.600 H Neut % (Auto) 87.6 H Lymph % (Auto) 3.0 L [place] % (Auto) 6.7 Eos % (Auto) 0.0 Baso % (Auto) 0.1 Absolute Neuts (auto) 17.8 H Absolute Lymphs (auto) 0.61 L Total Counted Not Reportable Differential Comment SCANNED Diff Path Review May foll Toxic Vacuolation 2+ PT 20.2 H INR 1.7 APTT 37.7 H Sodium 134 L Potassium 5.5 H Chloride 94 L Carbon Dioxide 22.0 Anion Gap 18 H BUN 72 H Creatinine 4.76 H Estim Creat Clear Calc 15.24 Est GFR (MDRD) Af Amer 16 L Est GFR (MDRD) Non-Af 13 L BUN/Creatinine Ratio 15.1 Glucose 104 Lactic Acid Calcium 8.2 L Total Bilirubin 0.80 AST 64 H ALT 36 Alkaline Phosphatase 145 H Troponin I < 0.015 Total Protein 7.6 Albumin 2.0 L Globulin 5.6 H Albumin/Globulin Ratio 0.4 L Urine Color Urine Clarity Urine pH Ur Specific [place] Urine Protein Urine Glucose (UA) Urine Ketones Urine Occult Blood Urine Nitrite Urine Bilirubin Urine Urobilinogen Ur Leukocyte Esterase Urine RBC Urine WBC Ur Squamous Epith Cells Urine Bacteria Urine Mucus 11/03/18 11/03/18 02:55 03:42 WBC RBC Hgb Hct MCV MCH MCHC RDW RDW Differential Plt Count MPV Immature Gran % (Auto) Neut % (Auto) Lymph % (Auto) [place] % (Auto) Eos % (Auto) Baso % (Auto) Absolute Neuts (auto) Absolute Lymphs (auto) Total Counted Differential Comment Diff Path Review Toxic Vacuolation PT INR APTT Sodium Potassium Chloride Carbon Dioxide Anion Gap BUN Creatinine Estim Creat Clear Calc Est GFR (MDRD) Af Amer Est GFR (MDRD) Non-Af BUN/Creatinine Ratio Glucose Lactic Acid 5.7 H* Calcium Total Bilirubin AST ALT Alkaline Phosphatase Troponin I Total Protein Albumin Globulin Albumin/Globulin Ratio Urine Color SEE COMMENT BELOW Urine Clarity Sl. Cloudy Urine pH 7.0 Ur Specific [place] 1.005 Urine Protein 100 H Urine Glucose (UA) Normal Urine Ketones Negative Urine Occult Blood 250 H Urine Nitrite Negative Urine Bilirubin Negative Urine Urobilinogen Normal Ur Leukocyte Esterase 500 H Urine RBC 5-10 SEEN Urine WBC 25-50 SEEN Ur Squamous Epith Cells 0 SEEN Urine Bacteria 1+ Urine Mucus 1+ Assessment/Plan All Active Problems (Last Updated 07/21/18 @ 14:54 by Anna Sapp) Septic shock (Acute) Acute renal failure (Acute) Severe dehydration (Acute) Lactic acidosis (Acute) Hypoxia (Acute) Bloating (Acute) Fall (Resolved) Rhabdomyolysis (Resolved) The patient is a 62 year old M with a significant history of paraplegia; and with a Chronic Louise catheter; chronic atrial fibrillation who presented to the emergency department because of shortness of breath and found to meet SIRS criteria with tachycardia; tachypnea; leukocytosis; and also with elevated creatinine and severely elevated lactic acid consistent with septic shock. Septic shock Tachycardia; tachypnea; leukocytosis; and also with elevated creatinine and severely elevated lactic acid consistent with septic shock. Patient with bandemia. Source of infection is probable from her chronic Louise that was changed at the emergency department. Cannot rule out pneumonia at this time. Patient has some wheezes on examination. Radiograph showed minimal fluid tracking in the right minor fissure. The right lung otherwise did not demonstrate focal changes. Patient received vancomycin and Zosyn in the emergency department. Because of severe BRANDO we will hold off vancomycin at this time. Zosyn continued. MRSA of nares ordered. Receive normal saline potassium as per kilogram per septic shock protocol. Patient remains hypotensive. However patient is DNR CC and does not want pressors. We will continue normal saline IV hydration. Blood cultures was ordered emergency department; trend Fluid culture was ordered emergency department; trend. Trend lactic acid Hold home methocarbamol that could also cause hypotension. Trend CBC and BMP CT abdomen showed fecal load. Reportedly patient had large stool at the ED. Albuterol as needed continued. Mucinex continued. BRANDO Her creatinine on admission was 4.76. Review of old records showed baseline creatinine of less than 1. Her BUN was 72. Review of old records showed highest BUN was 48 before this presentation. BUN over creatinine is 15.1. This could be a combination of intrinsic renal from toxic effects of sepsis or prerenal from hypovolemia. IV fluids as above Trend BMP Avoid nephrotoxins Home Tizanidine held. Ultram dose adjusted. Nephrology consult. A. fib with RVR. On presentation patient's was safe in A. fib with ventricular rate of around 141. With IV fluids his ventricular rate decreased to about 100. Continue treatment for septic shock. IV hydration. Chronic stage III pressure ulcer on coccyx and pressure ulcers on bilateral heels as well as excoriation on bilateral feet Wound care consult. DVT prophylaxis Subcutaneous Heparin ordered Code Visit Inpatient E&M: 30672 Init Hosp L3
[2018-11-03 07:11] LABS: Reflex Lactate? Y
[2018-11-03] MEDS: 0.9% Normal Saline 1,000 ML 250 ML IV ×2 (07:55→15:07)
[2018-11-03 08:16] LABS: Lactic Acid 4.2 mmol/L (0.4-2.0)
[2018-11-03 09:05] LABS: Magnesium 1.4 mg/dL (1.6-2.6)
[2018-11-03 09:38] LABS: Phosphorus 5.9 mg/dL (2.5-4.9)
--- NOTE | 2018-11-03 10:17 | PCM.RX.CS ---
Consult Pharmacy has been consulted to manage selected antiobiotic: Vancomycin Type of Consult: New start Suspected Infection: Other Prior Doses of Antibiotics Received/Current Regimen: Medications Discontinued Medications Vancomycin HCl 1,250 mg/ (Dextrose) 275 mls @ 250 mls/hr IV X1 ONE Stop: 11/03/18 04:54 Last Admin: 11/03/18 04:06 Dose: 250 mls/hr Labs: Sodium 134 mmol/L (136-145) L 11/03/18 02:55 Potassium 5.5 mmol/L (3.5-5.1) H 11/03/18 02:55 Chloride 94 mmol/L (98-107) L 11/03/18 02:55 Carbon Dioxide 22.0 mmol/L (21.0-32.0) 11/03/18 02:55 Anion Gap 18 (5-15) H 11/03/18 02:55 BUN 72 mg/dL (7-18) H 11/03/18 02:55 Creatinine 4.76 mg/dL (0.70-1.30) H 11/03/18 02:55 Est GFR (MDRD) Af Amer 16 mL/min (>60) L 11/03/18 02:55 Est GFR (MDRD) Non-Af 13 mL/min (>60) L 11/03/18 02:55 BUN/Creatinine Ratio 15.1 RATIO (10-20) 11/03/18 02:55 Glucose 104 mg/dL (74-106) 11/03/18 02:55 Weight used for dosin kg Estimated Creatinine Clearance: <20ML/MIN Goal Trough: 15-20 mcg/mL Pharmacy Plan for Drug Dosing: Vancomycin 1250mg given in ED 11/03 @0350. Did not give remainder of loading dose due to patient's severe acute renal failure. Ordered random vancomycin level 11/04 @0600 per policy for CrCl <20. Pharmacy Service will continue to monitor and adjust dosing as required. Follow-Up Labs: Trough Vancomycin - Random Level 11/04 @0600
--- NOTE | 2018-11-03 10:19 | RAD_ITS ---
STUDY: X-RAY - ABDOMEN/PELVIS REASON FOR EXAM: Male, 62 years old. Abdominal distention. TECHNIQUE: Single AP view of the abdomen / pelvis. COMPARISON: Comparison is made with prior study dated May 11, 2018. FINDINGS: Elevation of the right hemidiaphragm. The lungs are clear. There is an unremarkable bowel gas pattern. Gas is seen throughout the colon. The visualized liver, spleen and kidneys are grossly normal in size and morphology. Normal soft tissue structures. There are diffuse degenerative changes of the visualized lumbar spine. Prior fusion in the lower dorsal spine. Prior right femoral nailing with healing right intertrochanteric fracture. RAD/Abdomen Single View (Portable) IMPRESSION: Nonspecific bowel gas pattern. Electronically Signed: Venkata Franklin, at 14:59 EDT , Service support ,
--- NOTE | 2018-11-03 10:19 | MRI_ITS ---
STUDY: MRI LUMBAR SPINE WITHOUT CONTRAST REASON FOR EXAM: Male, 62 years old. Abscess, prior spine surgery. Testicular cancer. TECHNIQUE: Standardized fat and water weighted pulse sequences were obtained in the sagittal and axial planes. COMPARISON: MRI lumbar spine 05/14/2018 FINDINGS: T12-L1: (Sagittal only). Normal endplates. Normal disc height and morphology. Normal central canal and bilateral intervertebral neural foramina. Normal lumbar lordosis. There is no substantial scoliosis. Normal conus medullaris that terminates at the upper L1 vertebral body level. L1-2: Normal endplates. Normal disc height, hydration and morphology. Normal bilateral facet joints. Normal central canal and bilateral lateral recesses. Normal bilateral intervertebral neural foramina. L2-3: Partial ankylosis in the anterior aspect of the vertebral bodies. Normal endplates. Mild disc space height narrowing. No ventral extra dural defect. Normal central canal and bilateral lateral recesses. Normal facet joints. Normal bilateral intervertebral neural foramina. L3-4: Partial ankylosis of the vertebral bodies. Normal endplates with mild disc space height narrowing. No ventral extradural defect. Normal central canal and bilateral lateral recesses. Normal facet joints. Normal bilateral intervertebral neural foramina. L4-5: Normal endplates. Normal disc height, hydration and morphology. Normal bilateral facet joints. Normal central canal and bilateral lateral recesses. Normal bilateral intervertebral neural foramina. L5-S1: Normal endplates. Mild disc space height narrowing. No ventral extradural defect. Normal central canal and bilateral lateral recesses. Normal facet joints. Normal bilateral intervertebral neural foramina. Normal visualized sacral ala. Fatty infiltration of the posterior paraspinal muscles. Stable left renal cyst. There is no collection or abscess. MRI/Spine Lumbar (Routine) IMPRESSION: Again seen is ankylosing spondylitis as described above, unchanged since prior exams. No focal collection or abscess. Stable chronic findings are described above. No significant degenerative disease. Electronically Signed: Kevyn Solis, at 13:38 EDT Tel , Service support ,
--- NOTE | 2018-11-03 10:20 | PCM.CONS.R ---
Problem List (1) Acute renal failure Status: Acute (2) Lactic acidosis Status: Acute Consultation - Renal 11/03/18 PCP/ Referring MD: Requesting physician: BRANDO Primary care physician: Rohith Roldan MD Reason for Consultation:: BRANDO - History of Present Illness History of Present Illness: The patient is a 62 year old M who was admitted to hospital with progressively worsening abdomen distention. resident of [facility] zoey has been present for 2 days now. history of paraplegia after complicated spine surgeries. apparently does not have an indwelling catheter but placed here. hypotensive, tachycardic with lactic acidosis. denies any breathing issues. some urine in alford bag. baseline creatinine is normal. UA is somewhat dirty - Allergies Allergies: Allergies wool Allergy (Severe, Verified 11/03/18 02:40) Other UNABLE TO BREATH NSAIDS (Non-Steroidal Anti-Inflamma Allergy (Verified 11/03/18 02:40) Rash - Current Medications Current Medications: Current Medications Acetaminophen (Tylenol) 650 mg PO Q6H PRN PRN PRN Reason: Mild pain 1-3/Temp > 100.7 F Albuterol Sulfate (Ventolin Aerosols) 2.5 mg INHALATION Q2H PRN PRN PRN Reason: SOB/Wheezing Bisacodyl (Dulcolax) 10 mg RECTAL DAILY PRN PRN PRN Reason: CONSTIPATION Dextrose (D50w Syringe) 0 gm IV X1 PRN; Protocol PRN Reason: Hypoglycemia Diphenhydramine HCl (Benadryl) 50 mg PO Q6H PRN PRN Reason: ITCHING Ergocalciferol (Vitamin D) 50,000 unit PO Gupta DAX Escitalopram Oxalate (Lexapro) 10 mg PO DAILY DAX Glucagon () 1 mg IM .X1 PRN PRN Reason: Hypoglycemia Guaifenesin (Mucinex) 600 mg PO BID DAX Heparin Sodium (Porcine) (Heparin Na) 5,000 unit SC Q8 DAX Hydrocortisone (Hytone) 1 applic TOPICAL BID ADX Sodium Chloride () 1,000 mls @ 250 mls/hr IV .Q4H DAX Stop: 11/03/18 15:28 Last Admin: 11/03/18 07:55 Dose: 250 mls/hr Piperacillin Sod/Tazobactam (Sod 3.375 gm/ Sodium Chloride) 50 mls @ 12.5 mls/hr IV Q12 [facility] Magnesium Sulfate 2 gm/ Sodium (Chloride) 104 mls @ 52 mls/hr IV X1 ONE Stop: 11/03/18 11:59 Vancomycin IV Pharmacy to Dose (1 ea/ Sodium Chloride) 500 mls @ 250 mls/hr IV X1 PRN; Protocol PRN Reason: Rx to Dose Magnesium Hydroxide (Milk Of Magnesia) 30 ml PO DAILY PRN PRN PRN Reason: Constipation Nystatin (Mycostatin Powder) 1 applic TOPICAL DAILY DAX; Protocol Ondansetron HCl (Zofran) 4 mg IV Q8H PRN PRN PRN Reason: NAUSEA/VOMITING Pantoprazole Sodium (Protonix) 20 mg PO DAILY DAX Polyethylene Glycol (Miralax) 17 gm PO BID DAX Sodium Chloride () 5 - 15 ml IV UD PRN PRN Reason: SALINE FLUSH Tramadol HCl (Ultram) 50 mg PO Q12H PRN PRN PRN Reason: PAIN - 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) Thrombocytopenia (Chronic) - Past Surgical History Surgical History: - - Reviewed - Social History Smoking Status: Former smoker Alcohol: None Drugs: None - Family History Maternal Family History: Family History (Last Reviewed 11/03/18 @ 08:23 by Guillermo Park MD) Mother Diabetes Father Heart disease History Items: No pertinent history Review of Systems Constitutional: Denies: Chills, Fever, Weight Change HEENT: Denies: Head Aches, Sinus Congestion, Sinus Drainage Cardiovascular: Denies: Chest Pain, Palpitations Respiratory: Denies: Cough, Shortness of breath at rest, Sputum production Gastrointestinal: Reports: Abdominal Pain. Denies: Nausea, Vomiting Musculoskeletal: Denies: Joint Pain, Joint Tenderness Skin: Denies: Rash, Wounds Neurological: Denies: Numbness, Tingling, Focal weakness Psychiatric: Denies: Anxiety, Depression, Homicidal Ideations, Suicidal Ideations Hematologic/ Lymphatic: Denies: Easy Bruising, Easy Bleeding Patient Problems: Active and Suspected Problems (Last Reviewed 11/03/18 @ 08:23 by Guillermo Park MD) Septic shock (Acute) Acute renal failure (Acute) Severe dehydration (Acute) Lactic acidosis (Acute) Hypoxia (Acute) Bloating (Acute) - Physical Exam General: Alert, Oriented x3, Cooperative HEENT: Atraumatic, PERRLA, EOMI, Normocephalic Neck: Supple, No JVD, Negative Carotid Bruits Lungs: Clear to auscultation, Normal air movement Cardiovascular: Regular rate, No murmurs Abdomen: Distended Extremities: No edema, Capillary Refill Less than 3 Seconds Skin: No rashes, No breakdown Musculoskeletal: No Tenderness to Palpation of Joints or Extremities Neurological: Cranial nerves II-XII grossly intact Psych/Mental Status: Normal Affect, Appropriate Vital Signs Temp Pulse Resp BP Pulse Ox 98.1 F 126 H 32 H 88/64 L 96 11/03/18 07:43 11/03/18 07:43 11/03/18 07:43 11/03/18 07:43 11/03/18 07:43 Oxygen Flow Rate (L/min) 3 Oxygen Delivery Method Nasal Cannula Weight: 81 kg Body Mass Index (BMI) 27.1 Laboratory Tests Past 24 Hrs 11/03/18 11/03/18 11/03/18 02:55 02:55 02:55 WBC 20.3 H RBC 4.81 Hgb 12.3 L Hct 38.4 L MCV 79.8 L MCH 25.6 L MCHC 32.0 RDW 18.2 H RDW Differential 52.9 H Plt Count 141 L MPV 10.7 Immature Gran % (Auto) 2.600 H Neut % (Auto) 87.6 H Lymph % (Auto) 3.0 L [place] % (Auto) 6.7 Eos % (Auto) 0.0 Baso % (Auto) 0.1 Absolute Neuts (auto) 17.8 H Absolute Lymphs (auto) 0.61 L Total Counted Not Reportable Differential Comment SCANNED Diff Path Review May foll Toxic Vacuolation 2+ PT 20.2 H INR 1.7 APTT 37.7 H Sodium 134 L Potassium 5.5 H Chloride 94 L Carbon Dioxide 22.0 Anion Gap 18 H BUN 72 H Creatinine 4.76 H Estim Creat Clear Calc 15.24 Est GFR (MDRD) Af Amer 16 L Est GFR (MDRD) Non-Af 13 L BUN/Creatinine Ratio 15.1 Glucose 104 Lactic Acid Calcium 8.2 L Phosphorus Magnesium Total Bilirubin 0.80 AST 64 H ALT 36 Alkaline Phosphatase 145 H Troponin I < 0.015 Total Protein 7.6 Albumin 2.0 L Globulin 5.6 H Albumin/Globulin Ratio 0.4 L Urine Color Urine Clarity Urine pH Ur Specific [place] Urine Protein Urine Glucose (UA) Urine Ketones Urine Occult Blood Urine Nitrite Urine Bilirubin Urine Urobilinogen Ur Leukocyte Esterase Urine RBC Urine WBC Ur Squamous Epith Cells Urine Bacteria Urine Mucus 11/03/18 11/03/18 11/03/18 02:55 02:55 02:55 WBC RBC Hgb Hct MCV MCH MCHC RDW RDW Differential Plt Count MPV Immature Gran % (Auto) Neut % (Auto) Lymph % (Auto) [place] % (Auto) Eos % (Auto) Baso % (Auto) Absolute Neuts (auto) Absolute Lymphs (auto) Total Counted Differential Comment Diff Path Review Toxic Vacuolation PT INR APTT Sodium Potassium Chloride Carbon Dioxide Anion Gap BUN Creatinine Estim Creat Clear Calc Est GFR (MDRD) Af Amer Est GFR (MDRD) Non-Af BUN/Creatinine Ratio Glucose Lactic Acid 5.7 H* Calcium Phosphorus 5.9 H Magnesium 1.4 L Total Bilirubin AST ALT Alkaline Phosphatase Troponin I Total Protein Albumin Globulin Albumin/Globulin Ratio Urine Color Urine Clarity Urine pH Ur Specific [place] Urine Protein Urine Glucose (UA) Urine Ketones Urine Occult Blood Urine Nitrite Urine Bilirubin Urine Urobilinogen Ur Leukocyte Esterase Urine RBC Urine WBC Ur Squamous Epith Cells Urine Bacteria Urine Mucus 11/03/18 11/03/18 03:42 07:15 WBC RBC Hgb Hct MCV MCH MCHC RDW RDW Differential Plt Count MPV Immature Gran % (Auto) Neut % (Auto) Lymph % (Auto) [place] % (Auto) Eos % (Auto) Baso % (Auto) Absolute Neuts (auto) Absolute Lymphs (auto) Total Counted Differential Comment Diff Path Review Toxic Vacuolation PT INR APTT Sodium Potassium Chloride Carbon Dioxide Anion Gap BUN Creatinine Estim Creat Clear Calc Est GFR (MDRD) Af Amer Est GFR (MDRD) Non-Af BUN/Creatinine Ratio Glucose Lactic Acid 4.2 H* Calcium Phosphorus Magnesium Total Bilirubin AST ALT Alkaline Phosphatase Troponin I Total Protein Albumin Globulin Albumin/Globulin Ratio Urine Color SEE COMMENT BELOW Urine Clarity Sl. Cloudy Urine pH 7.0 Ur Specific [place] 1.005 Urine Protein 100 H Urine Glucose (UA) Normal Urine Ketones Negative Urine Occult Blood 250 H Urine Nitrite Negative Urine Bilirubin Negative Urine Urobilinogen Normal Ur Leukocyte Esterase 500 H Urine RBC 5-10 SEEN Urine WBC 25-50 SEEN Ur Squamous Epith Cells 0 SEEN Urine Bacteria 1+ Urine Mucus 1+ Assessment/Plan All Active Problems (Last Reviewed 11/03/18 @ 08:23 by Guillermo Park MD) Septic shock (Acute) Acute renal failure (Acute) Severe dehydration (Acute) Lactic acidosis (Acute) Hypoxia (Acute) Bloating (Acute) Fall (Resolved) Rhabdomyolysis (Resolved) BRANDO. normal baseline as of August 2018. CT abd films reviewed. he has a right side kidney stone but no hydronephrosis. UA shows few leukocytes not very surprising given he is paraplegic and now has a alford in. BRANDO is likely ATN from severe sepsis Severe sepsis. UA is somewhat dirty. CXR is clear. CT abd without any significant findings but this is a non contrast study. Currently has abdomen distention. X Ray KUB now. also had a decubitus ulcer stage 4 likely which is likely source. continue aggressive resuscitation. Plan has hyperkalemia, lactic acidosis. would continue aggressive resuscitation for now hold off on HD d/w hospitalist service
[2018-11-03] MEDS: 0.9% Normal Saline 1,000 ML 999 ML IV ×2 (10:45→16:31)
[2018-11-03] MEDS: LORazepam 2 MG/ML Syringe 0.5 MG IV (11:49)
--- NOTE | 2018-11-03 13:01 | CASEMGMT ---
JOYCELYN reviewed chart, pt is here from [facility]. Pt is off the floor at present. 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 No precert is needed for pt to return. JOYCELYN faxed updates to [facility], SW will continue to follow. LASHAUN Oshea
--- NOTE | 2018-11-03 13:14 | NURSING ---
wound photo: right heel
--- NOTE | 2018-11-03 13:16 | NURSING ---
wound photo: left heel
--- NOTE | 2018-11-03 13:16 | NURSING ---
wound photo: right lateral malleolus
--- NOTE | 2018-11-03 13:17 | NURSING ---
wound photo: sacrum
[2018-11-03 13:30] LABS: Pathologist Review Reviewed
[2018-11-03 13:40] LABS: Probe Check PASS; Staph aureus DNA By PCR POSITIVE (Negative)
[2018-11-03 13:41] LABS: M R Staph aureus DNA By PCR POSITIVE (Negative)
--- NOTE | 2018-11-03 14:01 | PN_ITS ---
<Felix Candelario - Last Filed: 11/03/18 14:01> Patient Problems: Active and Suspected Problems (Last Reviewed 11/03/18 @ 08:23 by Guillermo Park MD) Septic shock (Acute) Acute renal failure (Acute) Severe dehydration (Acute) Lactic acidosis (Acute) Hypoxia (Acute) Bloating (Acute) Subjective: Pt complains of back pain, abdominal pain, abdominal distention. Last BM 2 days ago, then stool incontinence today with wound contamination. + fever. No chills. Denies urinary symptoms, has no feeling below abdomen 2/2 paraplegia. No N/V. No CP. Mild SOB. - Physical Exam General: Alert, Oriented x3, Cooperative HEENT: Atraumatic, PERRLA, EOMI, Normocephalic Neck: Supple, No JVD, Negative Carotid Bruits Lungs: Clear to auscultation, Normal air movement Cardiovascular: Regular rate, No murmurs Abdomen: Hypoactive Bowel Sounds, Distended, Obese, Rigid, Tender Extremities: No edema, Capillary Refill Less than 3 Seconds Skin: No rashes, No breakdown Musculoskeletal: No Tenderness to Palpation of Joints or Extremities Neurological: Cranial nerves II-XII grossly intact Psych/Mental Status: Flat Affect, Alert and oriented to time, place, person, mood and affect Vital Signs Temp Pulse Resp BP Pulse Ox 100.2 F H 148 H 35 H 103/69 94 11/03/18 13:00 11/03/18 13:00 11/03/18 13:00 11/03/18 13:00 11/03/18 13:00 Oxygen Flow Rate (L/min) 3 Oxygen Delivery Method Nasal Cannula Weight: 178 lb 9.191 oz Body Mass Index (BMI) 27.1 Laboratory Tests Past 24 Hrs 11/03/18 11/03/18 11/03/18 02:55 02:55 02:55 WBC 20.3 H RBC 4.81 Hgb 12.3 L Hct 38.4 L MCV 79.8 L MCH 25.6 L MCHC 32.0 RDW 18.2 H RDW Differential 52.9 H Plt Count 141 L MPV 10.7 Immature Gran % (Auto) 2.600 H Neut % (Auto) 87.6 H Lymph % (Auto) 3.0 L Blount % (Auto) 6.7 Eos % (Auto) 0.0 Baso % (Auto) 0.1 Absolute Neuts (auto) 17.8 H Absolute Lymphs (auto) 0.61 L Total Counted Not Reportable Differential Comment SCANNED Diff Path Review Reviewed Toxic Vacuolation 2+ PT 20.2 H INR 1.7 APTT 37.7 H Sodium 134 L Potassium 5.5 H Chloride 94 L Carbon Dioxide 22.0 Anion Gap 18 H BUN 72 H Creatinine 4.76 H Estim Creat Clear Calc 15.24 Est GFR (MDRD) Af Amer 16 L Est GFR (MDRD) Non-Af 13 L BUN/Creatinine Ratio 15.1 Glucose 104 Lactic Acid Calcium 8.2 L Phosphorus Magnesium Total Bilirubin 0.80 AST 64 H ALT 36 Alkaline Phosphatase 145 H Troponin I < 0.015 Total Protein 7.6 Albumin 2.0 L Globulin 5.6 H Albumin/Globulin Ratio 0.4 L Urine Color Urine Clarity Urine pH Ur Specific [place] Urine Protein Urine Glucose (UA) Urine Ketones Urine Occult Blood Urine Nitrite Urine Bilirubin Urine Urobilinogen Ur Leukocyte Esterase Urine RBC Urine WBC Ur Squamous Epith Cells Urine Bacteria Urine Mucus S.aureus Protein A PCR MRSA (PCR) 11/03/18 11/03/18 11/03/18 02:55 02:55 02:55 WBC RBC Hgb Hct MCV MCH MCHC RDW RDW Differential Plt Count MPV Immature Gran % (Auto) Neut % (Auto) Lymph % (Auto) Blount % (Auto) Eos % (Auto) Baso % (Auto) Absolute Neuts (auto) Absolute Lymphs (auto) Total Counted Differential Comment Diff Path Review Toxic Vacuolation PT INR APTT Sodium Potassium Chloride Carbon Dioxide Anion Gap BUN Creatinine Estim Creat Clear Calc Est GFR (MDRD) Af Amer Est GFR (MDRD) Non-Af BUN/Creatinine Ratio Glucose Lactic Acid 5.7 H* Calcium Phosphorus 5.9 H Magnesium 1.4 L Total Bilirubin AST ALT Alkaline Phosphatase Troponin I Total Protein Albumin Globulin Albumin/Globulin Ratio Urine Color Urine Clarity Urine pH Ur Specific [place] Urine Protein Urine Glucose (UA) Urine Ketones Urine Occult Blood Urine Nitrite Urine Bilirubin Urine Urobilinogen Ur Leukocyte Esterase Urine RBC Urine WBC Ur Squamous Epith Cells Urine Bacteria Urine Mucus S.aureus Protein A PCR MRSA (PCR) 11/03/18 11/03/18 11/03/18 03:42 07:15 10:27 WBC RBC Hgb Hct MCV MCH MCHC RDW RDW Differential Plt Count MPV Immature Gran % (Auto) Neut % (Auto) Lymph % (Auto) Blount % (Auto) Eos % (Auto) Baso % (Auto) Absolute Neuts (auto) Absolute Lymphs (auto) Total Counted Differential Comment Diff Path Review Toxic Vacuolation PT INR APTT Sodium Potassium Chloride Carbon Dioxide Anion Gap BUN Creatinine Estim Creat Clear Calc Est GFR (MDRD) Af Amer Est GFR (MDRD) Non-Af BUN/Creatinine Ratio Glucose Lactic Acid 4.2 H* Calcium Phosphorus Magnesium Total Bilirubin AST ALT Alkaline Phosphatase Troponin I Total Protein Albumin Globulin Albumin/Globulin Ratio Urine Color SEE COMMENT BELOW Urine Clarity Sl. Cloudy Urine pH 7.0 Ur Specific [place] 1.005 Urine Protein 100 H Urine Glucose (UA) Normal Urine Ketones Negative Urine Occult Blood 250 H Urine Nitrite Negative Urine Bilirubin Negative Urine Urobilinogen Normal Ur Leukocyte Esterase 500 H Urine RBC 5-10 SEEN Urine WBC 25-50 SEEN Ur Squamous Epith Cells 0 SEEN Urine Bacteria 1+ Urine Mucus 1+ S.aureus Protein A PCR POSITIVE H MRSA (PCR) POSITIVE H Medical Necessity - Tobacco Use Smoking Status: Former smoker Assessment/Plan All Active Problems (Last Reviewed 11/03/18 @ 08:23 by Guillermo Park MD) Septic shock (Acute) Acute renal failure (Acute) Severe dehydration (Acute) Lactic acidosis (Acute) Hypoxia (Acute) Bloating (Acute) Fall (Resolved) Rhabdomyolysis (Resolved) 1. Septic shock 2/2 presumed UTI, possibly infected st 4 decubitus ulcer (present on admission) - Continue Vanc/Zosyn. Wound contaminated. MRSA/MSSA screen + for MRSA,and wound culture pending. Blood culture pending. C/s to wound care. Tmax 100.2. WBC 20k. Very tachy. Midodrine for BP along with multiple f luid boluses. BP is improved somewhat, still very tachy. MRI without abscess. UA +, alford changed in ER. 2. Abdominal distention - pending KUB. Aggresive laxatives. Significant stool on CT abdomen. 3. BRANDO - neprhology following. 4. Low mag - replete. High K - recheck this afternoon, if elevated will give kayex. Phos elevated. 5. Abnormal LFTs - possibly 2/2 sepsis, recheck in AM. 6. Paraplegic and neurogenic bladder 2/2 prior spinal disease - chronic alford. SNF resident. 7. Hx Ankylosing spondylitis and psoriasis 8. thrombocytopenia - follows heme as o/p. will trend. DVT ppx: heparin DC planning: return to SNF when appropriate. This patient was seen by Felix Candelario PA-C under the supervision of Dr. Roman <Esteban Roman Bartolo - Last Filed: 11/03/18 17:16> - Physical Exam Vital Signs Temp Pulse Resp BP Pulse Ox 102.5 F H 145 H 35 H 90/61 95 11/03/18 16:00 11/03/18 16:00 11/03/18 16:00 11/03/18 16:00 11/03/18 16:00 Oxygen Flow Rate (L/min) 3 Oxygen Delivery Method Nasal Cannula Weight: 178 lb 9.191 oz Body Mass Index (BMI) 27.1 Intake and Output for Last 24 Hours 11/01/18 11/02/18 11/03/18 23:59 23:59 23:59 Intake Total 1750 / 1750 Output Total 100 / 100 Balance 1650 / 1650 Laboratory Tests Past 24 Hrs 11/03/18 11/03/18 11/03/18 02:55 02:55 02:55 WBC 20.3 H RBC 4.81 Hgb 12.3 L Hct 38.4 L MCV 79.8 L MCH 25.6 L MCHC 32.0 RDW 18.2 H RDW Differential 52.9 H Plt Count 141 L MPV 10.7 Immature Gran % (Auto) 2.600 H Neut % (Auto) 87.6 H Lymph % (Auto) 3.0 L Blount % (Auto) 6.7 Eos % (Auto) 0.0 Baso % (Auto) 0.1 Absolute Neuts (auto) 17.8 H Absolute Lymphs (auto) 0.61 L Total Counted Not Reportable Differential Comment SCANNED Diff Path Review Reviewed Toxic Vacuolation 2+ PT 20.2 H INR 1.7 APTT 37.7 H Sodium 134 L Potassium 5.5 H Chloride 94 L Carbon Dioxide 22.0 Anion Gap 18 H BUN 72 H Creatinine 4.76 H Estim Creat Clear Calc 15.24 Est GFR (MDRD) Af Amer 16 L Est GFR (MDRD) Non-Af 13 L BUN/Creatinine Ratio 15.1 Glucose 104 Lactic Acid Calcium 8.2 L Phosphorus Magnesium Total Bilirubin 0.80 AST 64 H ALT 36 Alkaline Phosphatase 145 H Troponin I < 0.015 Total Protein 7.6 Albumin 2.0 L Globulin 5.6 H Albumin/Globulin Ratio 0.4 L Urine Color Urine Clarity Urine pH Ur Specific [place] Urine Protein Urine Glucose (UA) Urine Ketones Urine Occult Blood Urine Nitrite Urine Bilirubin Urine Urobilinogen Ur Leukocyte Esterase Urine RBC Urine WBC Ur Squamous Epith Cells Urine Bacteria Urine Mucus S.aureus Protein A PCR MRSA (PCR) 11/03/18 11/03/18 11/03/18 02:55 02:55 02:55 WBC RBC Hgb Hct MCV MCH MCHC RDW RDW Differential Plt Count MPV Immature Gran % (Auto) Neut % (Auto) Lymph % (Auto) Blount % (Auto) Eos % (Auto) Baso % (Auto) Absolute Neuts (auto) Absolute Lymphs (auto) Total Counted Differential Comment Diff Path Review Toxic Vacuolation PT INR APTT Sodium Potassium Chloride Carbon Dioxide Anion Gap BUN Creatinine Estim Creat Clear Calc Est GFR (MDRD) Af Amer Est GFR (MDRD) Non-Af BUN/Creatinine Ratio Glucose Lactic Acid 5.7 H* Calcium Phosphorus 5.9 H Magnesium 1.4 L Total Bilirubin AST ALT Alkaline Phosphatase Troponin I Total Protein Albumin Globulin Albumin/Globulin Ratio Urine Color Urine Clarity Urine pH Ur Specific [place] Urine Protein Urine Glucose (UA) Urine Ketones Urine Occult Blood Urine Nitrite Urine Bilirubin Urine Urobilinogen Ur Leukocyte Esterase Urine RBC Urine WBC Ur Squamous Epith Cells Urine Bacteria Urine Mucus S.aureus Protein A PCR MRSA (PCR) 11/03/18 11/03/18 11/03/18 03:42 07:15 10:27 WBC RBC Hgb Hct MCV MCH MCHC RDW RDW Differential Plt Count MPV Immature Gran % (Auto) Neut % (Auto) Lymph % (Auto) Blount % (Auto) Eos % (Auto) Baso % (Auto) Absolute Neuts (auto) Absolute Lymphs (auto) Total Counted Differential Comment Diff Path Review Toxic Vacuolation PT INR APTT Sodium Potassium Chloride Carbon Dioxide Anion Gap BUN Creatinine Estim Creat Clear Calc Est GFR (MDRD) Af Amer Est GFR (MDRD) Non-Af BUN/Creatinine Ratio Glucose Lactic Acid 4.2 H* Calcium Phosphorus Magnesium Total Bilirubin AST ALT Alkaline Phosphatase Troponin I Total Protein Albumin Globulin Albumin/Globulin Ratio Urine Color SEE COMMENT BELOW Urine Clarity Sl. Cloudy Urine pH 7.0 Ur Specific [place] 1.005 Urine Protein 100 H Urine Glucose (UA) Normal Urine Ketones Negative Urine Occult Blood 250 H Urine Nitrite Negative Urine Bilirubin Negative Urine Urobilinogen Normal Ur Leukocyte Esterase 500 H Urine RBC 5-10 SEEN Urine WBC 25-50 SEEN Ur Squamous Epith Cells 0 SEEN Urine Bacteria 1+ Urine Mucus 1+ S.aureus Protein A PCR POSITIVE H MRSA (PCR) POSITIVE H 11/03/18 13:45 WBC RBC Hgb Hct MCV MCH MCHC RDW RDW Differential Plt Count MPV Immature Gran % (Auto) Neut % (Auto) Lymph % (Auto) Blount % (Auto) Eos % (Auto) Baso % (Auto) Absolute Neuts (auto) Absolute Lymphs (auto) Total Counted Differential Comment Diff Path Review Toxic Vacuolation PT INR APTT Sodium Potassium 5.2 H Chloride Carbon Dioxide Anion Gap BUN Creatinine Estim Creat Clear Calc Est GFR (MDRD) Af Amer Est GFR (MDRD) Non-Af BUN/Creatinine Ratio Glucose Lactic Acid Calcium Phosphorus Magnesium Total Bilirubin AST ALT Alkaline Phosphatase Troponin I Total Protein Albumin Globulin Albumin/Globulin Ratio Urine Color Urine Clarity Urine pH Ur Specific [place] Urine Protein Urine Glucose (UA) Urine Ketones Urine Occult Blood Urine Nitrite Urine Bilirubin Urine Urobilinogen Ur Leukocyte Esterase Urine RBC Urine WBC Ur Squamous Epith Cells Urine Bacteria Urine Mucus S.aureus Protein A PCR MRSA (PCR) Code Visit Addendum: Dr. Roman I personally examined the patient and reviewed the chart. I agree with the above. 62-year-old male with a history of paraplegia and a chronic Alford and chronic atrial fibrillation presents with sepsis secondary to UTI and possibly a stage IV decubitus ulcer. Is currently on Vanco and Zosyn and also has an BRANDO which nephrology was consulted for. MRI demonstrated no abscess or osteo. Blood cultures and wound cultures are pending. We will continue with supportive care until cultures result. Inpatient E&M: 79083 Subs Hosp L2
[2018-11-03] MEDS: 0.9% NaCl Peripheral Flush Adult/Peds IV ×2 (14:08→21:38)
[2018-11-03] MEDS: Nystatin Powder 15gm Bottle 1 APPLIC TOPICAL (14:09)
[2018-11-03] MEDS: Acetaminophen 325 MG Tablet 650 MG PO (14:09)
[2018-11-03] MEDS: Midodrine HCl 5 MG Tablet 10 MG PO (14:10)
[2018-11-03] MEDS: Escitalopram Oxalate 10 MG Tablet PO (14:10)
[2018-11-03] MEDS: Hydrocortisone 2.5% Crm 1 APPLIC TOPICAL ×2 (14:11→21:23)
[2018-11-03] MEDS: Polyethylene Glycol 3350 17 GM PACKET PO ×2 (14:11→21:37)
[2018-11-03] MEDS: Heparin Injection (Vial) 5,000 UNIT/ML VIAL 5000 UNIT SC ×2 (14:12→21:25)
[2018-11-03] MEDS: guaiFENesin 600 MG Tablet PO ×2 (14:13→21:25)
[2018-11-03] MEDS: Pantoprazole Sodium 20 MG Tablet PO (14:13)
[2018-11-03 14:19] LABS: Potassium 5.2 mmol/L (3.5-5.1)
--- NOTE | 2018-11-03 20:37 | PCM.PN.BLA ---
Progress Note Mr. Palomino is a 62-year-old male with a history of ankylosing spondylitis who had a fall in April 2018 that led to him becoming a paraplegic. He has since been in and out of hospitals and in the nursing homes and presented to this hospital in septic shock secondary to UTI and decubitus ulcer. Initially I was contacted by the nurse because his vital signs were trending downward and he was becoming more hypotensive. I spoke with him for 45 minutes on his options and at that time he was refusing to have IV pressors started to control his blood pressure, he had to hold his friend, who is currently at bedside, earlier in the day that he did not want to be on dialysis. We had prepared him to start hospice, and I had discussed with him the risks of stopping treatments and the benefits of continuing treatments and he clearly stated that if he stopped he would and if he continued he could live or he could and he preferred to discontinue treatments. When I went to find the friend who would left the room while we were cleaning and repositioning him, I spoke with her about the family situation and his mental state at this time and she felt that he had been thinking about his quality of life for a very long period of time and that he was making a decision that he normally would have made. We went back into the room I asked him if he would refuse dialysis and he stated no, that he would proceed with dialysis if it was indicated. I clarified with him then that he would also prefer to not have pressors started to increase his blood pressure and he said no, that he would like to proceed with pressor therapy now. He states that he would like to be transferred to the ICU to proceed with IV pressors and if dialysis was indicated, to proceed with dialysis. He would also like to proceed with any surgeries if indicated and even transfer to tertiary care centers if a higher level of care was warranted. I clarified with him multiple times that he had changed his mind and would like to proceed with further therapy and he stated yes that he has more living to do. I will transfer him to the ICU and consult the model home sales greeter and begin pressors via peripheral IV. We will hold off on IV fluids for now as he is very wet and has received 4 L of IV fluids today. He has made very little urine today and therefore will proceed just with pressor therapy for now. He still refuses intubation and would still like to remain DNR CC for now. Code Visit Procedures: 20729 Advncd Care Plan 30 Min
--- NOTE | 2018-11-03 20:53 | NURSING ---
report called to ICU. spoke with LACI GABRIEL. okay to bring patient to floor. patient going to ICU room 2.
--- NOTE | 2018-11-03 21:34 | NURSING ---
Called [facility] to ask if pt's dentures were there. Staff said that yes his dentures are in his room. Provided update on pt. condition.
[2018-11-03] MEDS: 0.9% NaCl IVPB Med Flush (250 mL) 15 ML IV (21:55)
[2018-11-04] VITALS (51 sets, daily range): BP systolic 73–123; BP diastolic 45–75; PULSE 98–126; RESP 18–39; TEMP 36.3–37; O2SAT 92–99
[2018-11-04] MEDS: Ondansetron 4 MG/2 ML Vial IV ×3 (02:00→22:40)
[2018-11-04 04:35] LABS: Hematocrit 36.9 % (40-54); Hemoglobin 11.6 g/dl (13.0-16.5); Mean Corp Hgb Conc 31.4 g/gl (32-36); Mean Corpuscular Hgb 25.4 pg (27.0-32.0); Mean Corpuscular Volume 80.9 fL (80-94); Mean Platelet Vol. 11.1 fl (6.2-12.0); Platelet Count 66 K/mm3 (150-450); RBC Distribution Width CV 18.5 % (11.6-14.6); RBC Distribution Width SD 54.3 fl (35.1-43.9); Red Blood Count 4.56 M/mm3 (4.6-6.2); White Blood Count 16.3 K/mm3 (4.4-11.0)
[2018-11-04 04:38] LABS: Scan Indicated on CBC? Y/N NO
[2018-11-04 05:01] LABS: ALB/GLOB Ratio 0.3 RATIO (0.9-2.4); AST(SGOT) 108 U/L (15-37); Alanine Aminotransfer ALT/SGPT 52 U/L (16-61); Albumin, Serum 1.6 g/dL (3.2-5.0); Alkaline Phosphatase 125 U/L (45-117); Anion Gap 14 (5-15); BUN 83 mg/dL (7-18); BUN/Creat Ratio 16.6 RATIO (10-20); Calcium,Total 7.7 mg/dL (8.5-10.1); Chloride 105 mmol/L (98-107); Creatinine, Serum 4.99 mg/dL (0.70-1.30); EST Glomerular Filtration Rate 13 mL/min (>60); Est Glom Filt Rate - Afr Amer 15 mL/min (>60); Estimated Creatinine Clearance 15.04 ml/min; Globulin 5.2 g/dL (2.2-4.2); Glucose 105 mg/dL (74-106); Potassium 5.8 mmol/L (3.5-5.1); Protein, Total 6.8 g/dL (6.4-8.2); Sodium Level 139 mmol/L (136-145)
[2018-11-04] MEDS: 0.9% NaCl Peripheral Flush Adult/Peds IV ×3 (05:56→22:40)
[2018-11-04] MEDS: Heparin Injection (Vial) 5,000 UNIT/ML VIAL 5000 UNIT SC (05:56)
[2018-11-04] MEDS: Bisacodyl 10 MG Suppository RECTAL (07:07)
--- NOTE | 2018-11-04 09:02 | PCM.PN.HOSP ---
Patient Problems: Active and Suspected Problems (Last Reviewed 11/03/18 @ 08:23 by Guillermo Park MD) Septic shock (Acute) Acute renal failure (Acute) Severe dehydration (Acute) Lactic acidosis (Acute) Hypoxia (Acute) Bloating (Acute) Subjective: Seems to be doing a little bit better, his blood pressure is much more stable. He had no acute events overnight. Vitals/I&O's: Vital Signs Temp Pulse Resp BP Pulse Ox 97.5 F L 117 H 29 H 89/57 L 94 11/04/18 08:00 11/04/18 08:00 11/04/18 08:00 11/04/18 08:00 11/04/18 08:00 Oxygen Flow Rate (L/min) 2 Oxygen Delivery Method Nasal Cannula Weight: 189 lb 2.506 oz Body Mass Index (BMI) 27.1 Intake and Output for Last 24 Hours 11/02/18 11/03/18 11/04/18 23:59 23:59 23:59 Intake Total 4264 / 4264 230 / 230 Output Total 100 / 100 75 / 75 Balance 4164 / 4164 155 / 155 General: Alert, Oriented x3, Cooperative HEENT: Atraumatic, PERRLA, EOMI, Normocephalic Neck: Supple, No JVD Lungs: Clear to auscultation, Normal air movement Cardiovascular: Regular rate, No murmurs Abdomen: Distended, Obese, Rigid Extremities: No edema, Capillary Refill Less than 3 Seconds Skin: No rashes, No breakdown Musculoskeletal: No Tenderness to Palpation of Joints or Extremities Neurological: Cranial nerves II-XII grossly intact Psych/Mental Status: Flat Affect Microbiology Past 72 Hours 11/03/18 03:07 Blood Culture (Wb) - Anticubital Left Blood Culture - Preliminary GNR lactose forms builder 11/03/18 02:55 Blood Culture (Wb) - Anticubital Right Blood Culture - Preliminary GNR lactose forms builder Laboratory Results 11/03/18 02:55: Diff Path Review Reviewed 11/03/18 02:55: Magnesium 1.4 L 11/03/18 02:55: Phosphorus 5.9 H 11/03/18 10:27: S.aureus Protein A PCR POSITIVE H, MRSA (PCR) POSITIVE H 11/03/18 13:45: Potassium 5.2 H 11/04/18 04:25: WBC 16.3 H, RBC 4.56 L, Hgb 11.6 L, Hct 36.9 L, MCV 80.9, MCH 25.4 L, MCHC 31.4 L, RDW 18.5 H, RDW Differential 54.3 H, Plt Count 66 L, MPV 11.1 11/04/18 04:25: Sodium 139, Potassium 5.8 H, Chloride 105, Carbon Dioxide 20.0 L, Anion Gap 14, BUN 83 H, Creatinine 4.99 H, Estim Creat Clear Calc 15.04, Est GFR (MDRD) Af Amer 15 L, Est GFR (MDRD) Non-Af 13 L, BUN/Creatinine Ratio 16.6, Glucose 105, Calcium 7.7 L, Total Bilirubin 0.90, AST 108 H, ALT 52, Alkaline Phosphatase 125 H, Total Protein 6.8, Albumin 1.6 L, Globulin 5.2 H, Albumin/Globulin Ratio 0.3 L 11/04/18 08:15: Random Vancomycin Pending Current Medications Acetaminophen (Tylenol) 650 mg PO Q6H PRN PRN PRN Reason: Mild pain 1-3/Temp > 100.7 F Last Admin: 11/03/18 14:09 Dose: 650 mg Albuterol Sulfate (Ventolin Aerosols) 2.5 mg INHALATION Q2H PRN PRN PRN Reason: SOB/Wheezing Bisacodyl (Dulcolax) 10 mg RECTAL DAILY PRN PRN PRN Reason: CONSTIPATION Last Admin: 11/04/18 07:07 Dose: 10 mg Dextrose (D50w Syringe) 0 gm IV X1 PRN; Protocol PRN Reason: Hypoglycemia Diphenhydramine HCl (Benadryl) 50 mg PO Q6H PRN PRN Reason: ITCHING Ergocalciferol (Vitamin D) 50,000 unit PO Gupta [facility] Escitalopram Oxalate (Lexapro) 10 mg PO DAILY [facility] Last Admin: 11/03/18 14:10 Dose: 10 mg Glucagon () 1 mg IM .X1 PRN PRN Reason: Hypoglycemia Guaifenesin (Mucinex) 600 mg PO BID [facility] Last Admin: 11/03/18 21:25 Dose: 600 mg Heparin Sodium (Porcine) (Heparin Na) 5,000 unit SC Q8 [facility] Last Admin: 11/04/18 05:56 Dose: 5,000 unit Hydrocortisone (Hytone) 1 applic TOPICAL BID [facility] Last Admin: 11/03/18 21:23 Dose: 1 applicatio Piperacillin Sod/Tazobactam (Sod 3.375 gm/ Sodium Chloride) 50 mls @ 12.5 mls/hr IV Q12 [facility]AX Last Admin: 11/03/18 21:25 Dose: 12.5 mls/hr Vancomycin IV Pharmacy to Dose (1 ea/ Sodium Chloride) 500 mls @ 250 mls/hr IV X1 PRN; Protocol PRN Reason: Rx to Dose Sodium Chloride () 250 mls @ 15 mls/hr IV .[id number] PRN PRN Reason: SALINE FLUSH Last Admin: 11/03/18 21:55 Dose: 15 mls/hr Norepinephrine Bitartrate 8 mg (/ Sodium Chloride) 250 mls @ 9.38 mls/hr CONT INF .[id number] DAX Magnesium Hydroxide (Milk Of Magnesia) 30 ml PO DAILY PRN PRN PRN Reason: Constipation Nutritional Formula (Lactose Free) (Ensure Enlive) 120 ml PO 4X/DAY DAX Last Admin: 11/03/18 21:37 Dose: 120 ml Nystatin (Mycostatin Powder) 1 applic TOPICAL DAILY DAX; Protocol Last Admin: 11/03/18 14:09 Dose: 1 applic Ondansetron HCl (Zofran) 4 mg IV Q8H PRN PRN PRN Reason: NAUSEA/VOMITING Last Admin: 11/04/18 08:17 Dose: 4 mg Pantoprazole Sodium (Protonix) 20 mg PO DAILY DAX Last Admin: 11/03/18 14:13 Dose: 20 mg Polyethylene Glycol (Miralax) 17 gm PO BID DAX Last Admin: 11/03/18 21:37 Dose: 17 gm Sodium Chloride () 5 - 15 ml IV UD PRN PRN Reason: SALINE FLUSH Last Admin: 11/04/18 05:56 Dose: 10 ml Tramadol HCl (Ultram) 50 mg PO Q12H PRN PRN PRN Reason: PAIN Medical Necessity - Tobacco Use Smoking Status: Former smoker Assessment/Plan All Active Problems (Last Reviewed 11/03/18 @ 08:23 by Guillermo Park MD) Septic shock (Acute) Acute renal failure (Acute) Severe dehydration (Acute) Lactic acidosis (Acute) Hypoxia (Acute) Bloating (Acute) Fall (Resolved) Rhabdomyolysis (Resolved) 1. Septic shock secondary to UTI and possible decubitus ulcer/acute renal failure/increased LFT -Transfer to the ICU last night because he revoked his CC status and wanted to have pressors to support his blood pressure -Gram-negative rods are growing in his blood, can discontinue vancomycin -Continue with IV Zosyn and hold fluids for now continue with pressor support. -His leukocytosis is improving however his renal function is worsening, he would be open to dialysis if that became a necessity -Appreciate nephrology assistance -AST increased from 64-108, will continue to monitor 2. 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 Thrombocytopenia -Platelet count is 66 today and this is likely secondary to his infection -Continue to monitor -We will discontinue heparin and place him on SCDs DVT: SCDs Code Visit Inpatient E&M: 90176 Subs Hosp L2
--- NOTE | 2018-11-04 09:10 | PN_ITS ---
Patient Problems: Active and Suspected Problems (Last Reviewed 11/03/18 @ 08:23 by Guillermo Park MD) Septic shock (Acute) Acute renal failure (Acute) Severe dehydration (Acute) Lactic acidosis (Acute) Hypoxia (Acute) Bloating (Acute) Subjective: Seems to be doing a little bit better, his blood pressure is much more stable. He had no acute events overnight. Vitals/I&O's: Vital Signs Temp Pulse Resp BP Pulse Ox 97.5 F L 117 H 29 H 89/57 L 94 11/04/18 08:00 11/04/18 08:00 11/04/18 08:00 11/04/18 08:00 11/04/18 08:00 Oxygen Flow Rate (L/min) 2 Oxygen Delivery Method Nasal Cannula Weight: 189 lb 2.506 oz Body Mass Index (BMI) 27.1 Intake and Output for Last 24 Hours 11/02/18 11/03/18 11/04/18 23:59 23:59 23:59 Intake Total 4264 / 4264 230 / 230 Output Total 100 / 100 75 / 75 Balance 4164 / 4164 155 / 155 General: Alert, Oriented x3, Cooperative HEENT: Atraumatic, PERRLA, EOMI, Normocephalic Neck: Supple, No JVD Lungs: Clear to auscultation, Normal air movement Cardiovascular: Regular rate, No murmurs Abdomen: Distended, Obese, Rigid Extremities: No edema, Capillary Refill Less than 3 Seconds Skin: No rashes, No breakdown Musculoskeletal: No Tenderness to Palpation of Joints or Extremities Neurological: Cranial nerves II-XII grossly intact Psych/Mental Status: Flat Affect Microbiology Past 72 Hours 11/03/18 03:07 Blood Culture (Wb) - Anticubital Left Blood Culture - Preliminary GNR lactose cane pusher 11/03/18 02:55 Blood Culture (Wb) - Anticubital Right Blood Culture - Preliminary GNR lactose cane pusher Laboratory Results 11/03/18 02:55: Diff Path Review Reviewed 11/03/18 02:55: Magnesium 1.4 L 11/03/18 02:55: Phosphorus 5.9 H 11/03/18 10:27: S.aureus Protein A PCR POSITIVE H, MRSA (PCR) POSITIVE H 11/03/18 13:45: Potassium 5.2 H 11/04/18 04:25: WBC 16.3 H, RBC 4.56 L, Hgb 11.6 L, Hct 36.9 L, MCV 80.9, MCH 25.4 L, MCHC 31.4 L, RDW 18.5 H, RDW Differential 54.3 H, Plt Count 66 L, MPV 11.1 11/04/18 04:25: Sodium 139, Potassium 5.8 H, Chloride 105, Carbon Dioxide 20.0 L , Anion Gap 14, BUN 83 H, Creatinine 4.99 H, Estim Creat Clear Calc 15.04, Est GFR (MDRD) Af Amer 15 L, Est GFR (MDRD) Non-Af 13 L, BUN/Creatinine Ratio 16.6, Glucose 105, Calcium 7.7 L, Total Bilirubin 0.90, AST 108 H, ALT 52, Alkaline Phosphatase 125 H, Total Protein 6.8, Albumin 1.6 L, Globulin 5.2 H, Albumin/Globulin Ratio 0.3 L 11/04/18 08:15: Random Vancomycin Pending Current Medications Acetaminophen (Tylenol) 650 mg PO Q6H PRN PRN PRN Reason: Mild pain 1-3/Temp > 100.7 F Last Admin: 11/03/18 14:09 Dose: 650 mg Albuterol Sulfate (Ventolin Aerosols) 2.5 mg INHALATION Q2H PRN PRN PRN Reason: SOB/Wheezing Bisacodyl (Dulcolax) 10 mg RECTAL DAILY PRN PRN PRN Reason: CONSTIPATION Last Admin: 11/04/18 07:07 Dose: 10 mg Dextrose (D50w Syringe) 0 gm IV X1 PRN; Protocol PRN Reason: Hypoglycemia Diphenhydramine HCl (Benadryl) 50 mg PO Q6H PRN PRN Reason: ITCHING Ergocalciferol (Vitamin D) 50,000 unit PO Gupta [facility] Escitalopram Oxalate (Lexapro) 10 mg PO DAILY [facility] Last Admin: 11/03/18 14:10 Dose: 10 mg Glucagon () 1 mg IM .X1 PRN PRN Reason: Hypoglycemia Guaifenesin (Mucinex) 600 mg PO BID [facility] Last Admin: 11/03/18 21:25 Dose: 600 mg Heparin Sodium (Porcine) (Heparin Na) 5,000 unit SC Q8 [facility] Last Admin: 11/04/18 05:56 Dose: 5,000 unit Hydrocortisone (Hytone) 1 applic TOPICAL BID DAX Last Admin: 11/03/18 21:23 Dose: 1 applicatio Piperacillin Sod/Tazobactam (Sod 3.375 gm/ Sodium Chloride) 50 mls @ 12.5 mls/hr IV Q12 DAX Last Admin: 11/03/18 21:25 Dose: 12.5 mls/hr Vancomycin IV Pharmacy to Dose (1 ea/ Sodium Chloride) 500 mls @ 250 mls/hr IV X1 PRN; Protocol PRN Reason: Rx to Dose Sodium Chloride () 250 mls @ 15 mls/hr IV .[id number] PRN PRN Reason: SALINE FLUSH Last Admin: 11/03/18 21:55 Dose: 15 mls/hr Norepinephrine Bitartrate 8 mg (/ Sodium Chloride) 250 mls @ 9.38 mls/hr CONT INF .[id number] DAX Magnesium Hydroxide (Milk Of Magnesia) 30 ml PO DAILY PRN PRN PRN Reason: Constipation Nutritional Formula (Lactose Free) (Ensure Enlive) 120 ml PO 4X/DAY DAX Last Admin: 11/03/18 21:37 Dose: 120 ml Nystatin (Mycostatin Powder) 1 applic TOPICAL DAILY DAX; Protocol Last Admin: 11/03/18 14:09 Dose: 1 applic Ondansetron HCl (Zofran) 4 mg IV Q8H PRN PRN PRN Reason: NAUSEA/VOMITING Last Admin: 11/04/18 08:17 Dose: 4 mg Pantoprazole Sodium (Protonix) 20 mg PO DAILY DAX Last Admin: 11/03/18 14:13 Dose: 20 mg Polyethylene Glycol (Miralax) 17 gm PO BID DAX Last Admin: 11/03/18 21:37 Dose: 17 gm Sodium Chloride () 5 - 15 ml IV UD PRN PRN Reason: SALINE FLUSH Last Admin: 11/04/18 05:56 Dose: 10 ml Tramadol HCl (Ultram) 50 mg PO Q12H PRN PRN PRN Reason: PAIN Medical Necessity - Tobacco Use Smoking Status: Former smoker Assessment/Plan All Active Problems (Last Reviewed 11/03/18 @ 08:23 by Guillermo Park MD) Septic shock (Acute) Acute renal failure (Acute) Severe dehydration (Acute) Lactic acidosis (Acute) Hypoxia (Acute) Bloating (Acute) Fall (Resolved) Rhabdomyolysis (Resolved) 1. Septic shock secondary to UTI and possible decubitus ulcer/acute renal failure/increased LFT -Transfer to the ICU last night because he revoked his CC status and wanted to h ave pressors to support his blood pressure -Gram-negative rods are growing in his blood, can discontinue vancomycin -Continue with IV Zosyn and hold fluids for now continue with pressor support. -His leukocytosis is improving however his renal function is worsening, he would be open to dialysis if that became a necessity -Appreciate nephrology assistance -AST increased from 64-108, will continue to monitor 2. 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 Thrombocytopenia -Platelet count is 66 today and this is likely secondary to his infection -Continue to monitor -We will discontinue heparin and place him on SCDs DVT: SCDs Code Visit Inpatient E&M: [id number] Subs Hosp L2
--- NOTE | 2018-11-04 09:28 | PN.RENAL_ITS ---
Patient Problems: Active and Suspected Problems (Last Reviewed 11/03/18 @ 08:23 by Guillermo Park MD) Septic shock (Acute) Acute renal failure (Acute) Severe dehydration (Acute) Lactic acidosis (Acute) Hypoxia (Acute) Bloating (Acute) Subjective: events noted worsening septic shock, gm negative bacteremia - Physical Exam General: Alert, Oriented x3 HEENT: Atraumatic, PERRLA, EOMI, Normocephalic Neck: Supple, No JVD, Negative Carotid Bruits Lungs: Clear to auscultation, Normal air movement Cardiovascular: Regular rate, No murmurs Abdomen: Bowel Sounds Present, Soft, Non Tender Extremities: No edema, Capillary Refill Less than 3 Seconds Skin: No rashes, No breakdown Musculoskeletal: No Tenderness to Palpation of Joints or Extremities Psych/Mental Status: Normal Affect, Appropriate Vital Signs Temp Pulse Resp BP Pulse Ox 97.5 F L 120 H 23 H 102/68 95 11/04/18 08:00 11/04/18 09:00 11/04/18 09:00 11/04/18 09:00 11/04/18 09:00 Oxygen Flow Rate (L/min) 2 Oxygen Delivery Method Room Air Weight: 85.8 kg Body Mass Index (BMI) 27.1 Intake and Output for Last 24 Hours 11/02/18 11/03/18 11/04/18 23:59 23:59 23:59 Intake Total 4264 / 4264 230 / 230 Output Total 100 / 100 75 / 75 Balance 4164 / 4164 155 / 155 Microbiology Past 72 Hours 11/03/18 03:07 Blood Culture - Preliminary Blood Culture (Wb) - Anticubital Left GNR lactose slip cover cutter 11/03/18 02:55 Blood Culture - Preliminary Blood Culture (Wb) - Anticubital Right GNR lactose slip cover cutter Laboratory Tests Past 24 Hrs 11/03/18 11/03/18 11/03/18 02:55 02:55 10:27 WBC RBC Hgb Hct MCV MCH MCHC RDW RDW Differential Plt Count MPV Diff Path Review Reviewed Sodium Potassium Chloride Carbon Dioxide Anion Gap BUN Creatinine Estim Creat Clear Calc Est GFR (MDRD) Af Amer Est GFR (MDRD) Non-Af BUN/Creatinine Ratio Glucose Calcium Phosphorus 5.9 H Total Bilirubin AST ALT Alkaline Phosphatase Total Protein Albumin Globulin Albumin/Globulin Ratio Random Vancomycin S.aureus Protein A PCR POSITIVE H MRSA (PCR) POSITIVE H 11/03/18 11/04/18 11/04/18 13:45 04:25 04:25 WBC 16.3 H RBC 4.56 L Hgb 11.6 L Hct 36.9 L MCV 80.9 MCH 25.4 L MCHC 31.4 L RDW 18.5 H RDW Differential 54.3 H Plt Count 66 L MPV 11.1 [address] Review Sodium 139 Potassium 5.2 H 5.8 H Chloride 105 Carbon Dioxide 20.0 L Anion Gap 14 BUN 83 H Creatinine 4.99 H Estim Creat Clear Calc 15.04 Est GFR (MDRD) Af Amer 15 L Est GFR (MDRD) Non-Af 13 L BUN/Creatinine Ratio 16.6 Glucose 105 Calcium 7.7 L Phosphorus Total Bilirubin 0.90 AST 108 H ALT 52 Alkaline Phosphatase 125 H Total Protein 6.8 Albumin 1.6 L Globulin 5.2 H Albumin/Globulin Ratio 0.3 L Random Vancomycin S.aureus Protein A PCR MRSA (PCR) 11/04/18 08:15 WBC RBC Hgb Hct MCV MCH MCHC RDW RDW Differential Plt Count MPV Diff Path Review Sodium Potassium Chloride Carbon Dioxide Anion Gap BUN Creatinine Estim Creat Clear Calc Est GFR (MDRD) Af Amer Est GFR (MDRD) Non-Af BUN/Creatinine Ratio Glucose Calcium Phosphorus Total Bilirubin AST ALT Alkaline Phosphatase Total Protein Albumin Globulin Albumin/Globulin Ratio Random Vancomycin Pending S.aureus Protein A PCR MRSA (PCR) Medical Necessity - Tobacco Use Smoking Status: Former smoker Assessment/Plan All Active Problems (Last Reviewed 11/03/18 @ 08:23 by Guillermo Park MD) Septic shock (Acute) Acute renal failure (Acute) Severe dehydration (Acute) Lactic acidosis (Acute) Hypoxia (Acute) Bloating (Acute) Fall (Resolved) Rhabdomyolysis (Resolved) BRANDO. normal baseline as of August 2018. CT abd films reviewed. he has a right side kidney stone but no hydronephrosis. UA shows few leukocytes not very surprising given he is paraplegic and now has a alford in. BRANDO is likely ATN from severe sepsis Severe sepsis. UA is somewhat dirty. CXR is clear. CT abd without any significant findings but this is a non contrast study. Currently has abdomen distention. X Ray KUB now. also had a decubitus ulcer stage 4 likely which is likely source. continue aggressive resuscitation. Plan worsening renal failure, anuria, hyperkalemia, acidosis changed his mind and now wants most aggressive measures except CPR in case of arrest I have once again confirmed this with him and his friend who is bedside consented for dialysis
[2018-11-04] MEDS: Polyethylene Glycol 3350 17 GM PACKET PO ×2 (10:25→21:27)
[2018-11-04] MEDS: guaiFENesin 600 MG Tablet PO ×2 (10:25→21:27)
[2018-11-04] MEDS: Nystatin Powder 15gm Bottle 1 APPLIC TOPICAL (10:25)
[2018-11-04] MEDS: Pantoprazole Sodium 20 MG Tablet PO (10:25)
[2018-11-04] MEDS: Escitalopram Oxalate 10 MG Tablet PO (10:25)
[2018-11-04] MEDS: Hydrocortisone 2.5% Crm 1 APPLIC TOPICAL ×2 (10:27→21:27)
--- NOTE | 2018-11-04 10:28 | PCM.CON.CC ---
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 Patient had complained of intermittent tightness across this chest that would last for approximately an hour and then come back in 15 to 20 minutes. This was associated with shortness of breath and did require supplemental oxygen secondary to saturations in the 70s. Patient was at a assisted and reportedly had a normal chest x-ray on the day prior. Patient does have chronic paraplegia secondary to spinal cord injury. Patient had noted some increased abdominal distention over 24 hours. In the emergency room, patient was noted to be tachycardic at 137 bpm and hypotensive. Patient was placed on nasal cannula oxygen, but laboratory studies reported acute renal failure, lactate greater than 5 and positive urinalysis. Cultures were sent and patient was given 3 L of fluids in the emergency department. Patient was started on Vanco and Zosyn, but reportedly was DNR Comfort Care, so was admitted to the PCU for further evaluation. While in the PCU, patient remained hypotensive. Patient received a total of 7 L of IV fluids. Discussion with the hospitalist about goals of therapy resulted in patient changing his CODE STATUS to DNR Comfort Care arrest without intubation. Patient reportedly was okay for pressors and hemodialysis if necessary. Patient was transferred to the intensive care unit for further monitoring. While in the intensive care unit, patient has received low-dose peripheral vasopressors through the left antecubital area. Patient reported an overall sense of fatigue. Patient did report abdominal discomfort. This morning, patient did receive a suppository with some production and mild improvement. Patient reportedly does have children, but close friends are the POA. Review of systems otherwise negative 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) Thrombocytopenia (Chronic) Medical History: Medical History (Last Reviewed 11/03/18 @ 08:23 by Guillermo Park MD) EXPLORATORY SURGERY Fracture, ribs S22.39XA 1988 Fractured nose S02.2XXA Hard of hearing H91.90 PARAPLEGIC 05-11-18 Psoriasis L40.9 Testicle cancer C62.90 Chronic neck and back pain M54.2, M54.9, G89.29 Allergies wool Allergy (Severe, Verified 11/03/18 02:40) Other UNABLE TO BREATH NSAIDS (Non-Steroidal Anti-Inflamma Allergy (Verified 11/03/18 02:40) Rash Home Medications: Ambulatory Orders Medication Instructions Recorded Albuterol Aerosols [Ventolin 2.5 mg INHALATION Q6H PRN PRN 11/03/18 Aerosols] Bisacodyl 10 mg RC DAILY PRN PRN 11/03/18 Cholecalciferol (Vitamin D3) 50,000 unit PO GENAO 11/03/18 [Vitamin D] DiphenhydrAMINE [Benadryl] 50 mg PO Q6H PRN 11/03/18 Escitalopram Oxalate 10 mg PO DAILY 11/03/18 Guaifenesin [Mucinex] 600 mg PO BID 11/03/18 Hydrocortisone 1% Crm [Hytone] 1 applic TOPICAL BID 11/03/18 Levofloxacin [Levaquin] 500 mg PO DAILY 11/03/18 Lisinopril [Zestril] 10 mg PO DAILY 11/03/18 Magnesium Hydroxide [Milk Of 30 ml PO DAILY PRN PRN 11/03/18 Magnesia] Methocarbamol 1,500 mg PO TID 11/03/18 Multivitamin [Once Daily] 1 each PO DAILY 11/03/18 Nystatin Powder [Mycostatin Powder] 1 applic TOPICAL DAILY 11/03/18 Omeprazole 20 mg PO DAILY 11/03/18 Tizanidine HCl 4 mg PO Q8H 11/03/18 traMADol [Ultram (G)] 50 mg PO Q6H PRN PRN 11/03/18 Surgical History: Surgical History (Last Reviewed 11/03/18 @ 08:23 by Guillermo Park MD) History of removal of testicle Z90.79 1978 Surgical History: - - Reviewed Lives: Correction Smoking Status: Former smoker Alcohol: None Drugs: None - *Family History Maternal Family History: Family History (Last Reviewed 11/03/18 @ 08:23 by Guillermo Park MD) Mother Diabetes Father Heart disease History Items: No pertinent history Review of Systems Comment: See HPI Patient Problems: Active and Suspected Problems (Last Reviewed 11/03/18 @ 08:23 by Guillermo Park MD) Septic shock (Acute) Acute renal failure (Acute) Severe dehydration (Acute) Lactic acidosis (Acute) Hypoxia (Acute) Bloating (Acute) Objective: All imaging was personally reviewed. Chest x-ray does show posterior thoracic spinal fixation, but no infiltrates. Patient does have a history of an echocardiogram in April 2018 showing an EF of 55% with mild concentric LVH and diastolic dysfunction. Unable to quantitate pulmonary artery pressures. No significant valvular abnormalities were reported. - Physical Exam General: - - RASS -1. Appears older than stated age. No conversational dyspnea. HEENT: Atraumatic, PERRLA, EOMI, Normocephalic, - - No scleral icterus or injection noted. Oral: Moist Mucosa, No Gingival or Mucosal Lesions/ Ulcerations Neck: Supple, No JVD, No Nodes, Trachea Midline Lungs: No rhonchi, No wheeze, Diminished, Rales - Bilateral bases, - - Symmetric expansion. Cardiovascular: Normal S1, Normal S2, No murmurs, No rub noted, No Gallop, Tachycardic Abdomen: Soft, Hypoactive Bowel Sounds, Distended, Tender - Vague tenderness to deep palpation. No rebound tenderness. Unable to elicit fluid wave. Extremities: No cyanosis, Cyanosis - Right hand beyond DIP joints, Edema Skin: No rashes, Ulcer/ Wound - Bilateral heels and coccyx Musculoskeletal: No Tenderness to Palpation of Joints or Extremities Lymphatic: No Cervical, Supraclavicular, or Inguinal Adenopathy Neurological: - - Paraplegia. Psych/Mental Status: Alert and oriented to time, place, person, mood and affect Vital Signs Temp Pulse Resp BP Pulse Ox 36.4 C L 120 H 23 H 102/68 95 11/04/18 08:00 11/04/18 09:00 11/04/18 09:00 11/04/18 09:00 11/04/18 09:20 Oxygen Flow Rate (L/min) 2 Oxygen Delivery Method Room Air Weight: 85.8 kg Body Mass Index (BMI) 27.1 Intake and Output for Last 24 Hours 11/02/18 11/03/18 11/04/18 23:59 23:59 23:59 Intake Total 4264 / 4264 230 / 230 Output Total 100 / 100 75 / 75 Balance 4164 / 4164 155 / 155 Microbiology Past 72 Hours 11/03/18 10:27 Gram Stain - Final Wound - Sacral Wound Culture - Preliminary Gram negative sue 11/03/18 03:42 Urine Culture - Preliminary Urine Catheter - Louise Mixed Gram Positive Organisms 11/03/18 07:43 Nasal Screen MRSA/MSSA - Final Swab (Method) 11/03/18 03:07 Blood Culture - Preliminary Blood Culture (Wb) - Anticubital Left GNR lactose mechanical process engineer 11/03/18 02:55 Blood Culture - Preliminary Blood Culture (Wb) - Anticubital Right GNR lactose mechanical process engineer Laboratory Tests Past 24 Hrs 11/03/18 11/03/18 11/03/18 02:55 10:27 13:45 WBC RBC Hgb Hct MCV MCH MCHC RDW RDW Differential Plt Count MPV Diff Path Review Reviewed Sodium Potassium 5.2 H Chloride Carbon Dioxide Anion Gap BUN Creatinine Estim Creat Clear Calc Est GFR (MDRD) Af Amer Est GFR (MDRD) Non-Af BUN/Creatinine Ratio Glucose Calcium Total Bilirubin AST ALT Alkaline Phosphatase Total Protein Albumin Globulin Albumin/Globulin Ratio Random Vancomycin S.aureus Protein A PCR POSITIVE H MRSA (PCR) POSITIVE H 11/04/18 11/04/18 11/04/18 04:25 04:25 08:15 WBC 16.3 H RBC 4.56 L Hgb 11.6 L Hct 36.9 L MCV 80.9 MCH 25.4 L MCHC 31.4 L RDW 18.5 H RDW Differential 54.3 H Plt Count 66 L MPV 11.1 Diff Path Review Sodium 139 Potassium 5.8 H Chloride 105 Carbon Dioxide 20.0 L Anion Gap 14 BUN 83 H Creatinine 4.99 H Estim Creat Clear Calc 15.04 Est GFR (MDRD) Af Amer 15 L Est GFR (MDRD) Non-Af 13 L BUN/Creatinine Ratio 16.6 Glucose 105 Calcium 7.7 L Total Bilirubin 0.90 AST 108 H ALT 52 Alkaline Phosphatase 125 H Total Protein 6.8 Albumin 1.6 L Globulin 5.2 H Albumin/Globulin Ratio 0.3 L Random Vancomycin 14.0 S.aureus Protein A PCR MRSA (PCR) Clinical Impression(s) from Imaging Studies Chest X-Ray 11/03/18 03:03 IMPRESSION: Minimal fluid tracking in the right minor fissure. Interval posterior thoracic spinal fixation. No focal lung consolidative changes. Electronically Signed: Azar Marino, at 3:41 EDT Tel , Service support , Abdomen/Pelvis CT 11/03/18 04:09 IMPRESSION: Negative unenhanced CT of the abdomen and pelvis for acute abnormality Nonobstructive right renal pelvic calculus. Moderate retained stool within the colon and rectum. Correlate for constipation. Cholelithiasis. Louise catheter drainage of the urinary bladder. Electronically Signed: Azar Marino, at 5:14 EDT Tel , Service support , KUB X-Ray 11/03/18 10:19 IMPRESSION: Nonspecific bowel gas pattern. Electronically Signed: Venkata Franklin, at 14:59 EDT , Service support , Lumbar Spine MRI 11/03/18 10:19 IMPRESSION: Again seen is ankylosing spondylitis as described above, unchanged since prior exams. No focal collection or abscess. Stable chronic findings are described above. No significant degenerative disease. Electronically Signed: Kevyn Solis, at 13:38 EDT Tel , Service support , Assessment/Plan Active and Suspected Problems (Last Reviewed 11/03/18 @ 08:23 by Guillermo Park MD) Septic shock (Acute) Acute renal failure (Acute) Severe dehydration (Acute) Lactic acidosis (Acute) Hypoxia (Acute) Bloating (Acute) RECOMMENDATIONS: 1. Continue pressors as necessary 2. Placement of hemodialysis and central lines 3. Continue broad-spectrum antibiotics 4. Wound nurse to evaluate decubitus ulcers 5. Supplemental oxygen as indicated 6. Transition to DNR Comfort Care arrest with intubation IMPRESSIONS: 1. Septic shock secondary to gram-negative Patient with gram-negative noted in wound and blood. Patient is MRSA swab positive, so vancomycin should be continued until cultures are completed. Patient is hypotensive at this time and require pressor therapy. Patient will need to have central line placed for safer administration of medications. Low clinical suspicion for MRSA etiology of septic shock at this time. 2. Acute kidney injury secondary to #1 Patient with very little urine output at this time, elevated BUN and acidosis. Did discuss with nephrology. Patient is open to dialysis at this time, so a temporary dialysis catheter will be placed. Patient does have thrombocytopenia, which would increase the risk for complications, but patient finds this acceptable. Patient may require increased pressor agents to facilitate dialysis. 3. Thrombocytopenia This reportedly is chronic. We will continue with monitoring for bleeding complications. Patient is to have interventional procedures, so increased risk for bleeding is noted. 4. Ankylosing spondylitis/paraplegia/neurogenic bladder with chronic indwelling Louise/psoriasis/debility/decubitus ulcers Complicates care, management, recovery and prognosis. Wound nurse to evaluate decubitus ulcers. TIME: 47 minutes critical care time spent addressing patient's septic shock, acute kidney injury, review of all data and collaboration with care team (8 AM to 11 AM) Code Visit 9xxxx: [id number] Critical care first hour
--- NOTE | 2018-11-04 10:33 | CON.PCM_ITS ---
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 Patient had complained of intermittent tightness across this chest that would last for approximately an hour and then come back in 15 to 20 minutes. This was associated with shortness of breath and did require supplemental oxygen secondary to saturations in the 70s. Patient was at a [facility] and reportedly had a normal chest x-ray on the day prior. Patient does have chronic paraplegia secondary to spinal cord injury. Patient had noted some increased abdominal distention over 24 hours. In the emergency room, patient was noted to be tachycardic at 137 bpm and hypotensive. Patient was placed on nasal cannula oxygen, but laboratory studies reported acute renal failure, lactate greater than 5 and positive urinalysis. Cultures were sent and patient was given 3 L of fluids in the emergency department. Patient was started on Vanco and Zosyn, but reportedly was DNR Comfort Care, so was admitted to the PCU for further evaluation. While in the PCU, patient remained hypotensive. Patient received a total of 7 L of IV fluids. Discussion with the hospitalist about goals of therapy resulted in patient changing his CODE STATUS to DNR Comfort Care arrest without intubation. Patient reportedly was okay for pressors and hemodialysis if necessary. Patient was transferred to the intensive care unit for further monitoring. While in the intensive care unit, patient has received low-dose peripheral vasopressors through the left antecubital area. Patient reported an overall sense of fatigue. Patient did report abdominal discomfort. This morning, patient did receive a suppository with some production and mild improvement. Patient reportedly does have children, but close friends are the POA. Review of systems otherwise negative 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) Thrombocytopenia (Chronic) Medical History: Medical History (Last Reviewed 11/03/18 @ 08:23 by Guillermo Park MD) EXPLORATORY SURGERY Fracture, ribs S22.39XA 1988 Fractured nose S02.2XXA Hard of hearing H91.90 PARAPLEGIC 05-11-18 Psoriasis L40.9 Testicle cancer C62.90 Chronic neck and back pain M54.2, M54.9, G89.29 Allergies wool Allergy (Severe, Verified 11/03/18 02:40) Other UNABLE TO BREATH NSAIDS (Non-Steroidal Anti-Inflamma Allergy (Verified 11/03/18 02:40) Rash Home Medications: Ambulatory Orders Medication Instructions Recorded Albuterol Aerosols [Ventolin 2.5 mg INHALATION Q6H PRN PRN 11/03/18 Aerosols] Bisacodyl 10 mg RC DAILY PRN PRN 11/03/18 Cholecalciferol (Vitamin D3) 50,000 unit PO GENAO 11/03/18 [Vitamin D] DiphenhydrAMINE [Benadryl] 50 mg PO Q6H PRN 11/03/18 Escitalopram Oxalate 10 mg PO DAILY 11/03/18 Guaifenesin [Mucinex] 600 mg PO BID 11/03/18 Hydrocortisone 1% Crm [Hytone] 1 applic TOPICAL BID 11/03/18 Levofloxacin [Levaquin] 500 mg PO DAILY 11/03/18 Lisinopril [Zestril] 10 mg PO DAILY 11/03/18 Magnesium Hydroxide [Milk Of 30 ml PO DAILY PRN PRN 11/03/18 Magnesia] Methocarbamol 1,500 mg PO TID 11/03/18 Multivitamin [Once Daily] 1 each PO DAILY 11/03/18 Nystatin Powder [Mycostatin Powder] 1 applic TOPICAL DAILY 11/03/18 Omeprazole 20 mg PO DAILY 11/03/18 Tizanidine HCl 4 mg PO Q8H 11/03/18 traMADol [Ultram (G)] 50 mg PO Q6H PRN PRN 11/03/18 Surgical History: Surgical History (Last Reviewed 11/03/18 @ 08:23 by Guillermo Park MD) History of removal of testicle Z90.79 1978 Surgical History: - - Reviewed Lives: Correction Smoking Status: Former smoker Alcohol: None Drugs: None - *Family History Maternal Family History: Family History (Last Reviewed 11/03/18 @ 08:23 by Guillermo Park MD) Mother Diabetes Father Heart disease History Items: No pertinent history Review of Systems Comment: See HPI Patient Problems: Active and Suspected Problems (Last Reviewed 11/03/18 @ 08:23 by Guillermo Park MD) Septic shock (Acute) Acute renal failure (Acute) Severe dehydration (Acute) Lactic acidosis (Acute) Hypoxia (Acute) Bloating (Acute) Objective: All imaging was personally reviewed. Chest x-ray does show posterior thoracic spinal fixation, but no infiltrates. Patient does have a history of an echocardiogram in April 2018 showing an EF of 55% with mild concentric LVH and diastolic dysfunction. Unable to quantitate pulmonary artery pressures. No significant valvular abnormalities were reported. - Physical Exam General: - - RASS -1. Appears older than stated age. No conversational dyspnea. HEENT: Atraumatic, PERRLA, EOMI, Normocephalic, - - No scleral icterus or injection noted. Oral: Moist Mucosa, No Gingival or Mucosal Lesions/ Ulcerations Neck: Supple, No JVD, No Nodes, Trachea Midline Lungs: No rhonchi, No wheeze, Diminished, Rales - Bilateral bases, - - Symmetric expansion. Cardiovascular: Normal S1, Normal S2, No murmurs, No rub noted, No Gallop, Tachycardic Abdomen: Soft, Hypoactive Bowel Sounds, Distended, Tender - Vague tenderness to deep palpation. No rebound tenderness. Unable to elicit fluid wave. Extremities: No cyanosis, Cyanosis - Right hand beyond DIP joints, Edema Skin: No rashes, Ulcer/ Wound - Bilateral heels and coccyx Musculoskeletal: No Tenderness to Palpation of Joints or Extremities Lymphatic: No Cervical, Supraclavicular, or Inguinal Adenopathy Neurological: - - Paraplegia. Psych/Mental Status: Alert and oriented to time, place, person, mood and affect Vital Signs Temp Pulse Resp BP Pulse Ox 36.4 C L 120 H 23 H 102/68 95 11/04/18 08:00 11/04/18 09:00 11/04/18 09:00 11/04/18 09:00 11/04/18 09:20 Oxygen Flow Rate (L/min) 2 Oxygen Delivery Method Room Air Weight: 85.8 kg Body Mass Index (BMI) 27.1 Intake and Output for Last 24 Hours 11/02/18 11/03/18 11/04/18 23:59 23:59 23:59 Intake Total 4264 / 4264 230 / 230 Output Total 100 / 100 75 / 75 Balance 4164 / 4164 155 / 155 Microbiology Past 72 Hours 11/03/18 10:27 Gram Stain - Final Wound - Sacral Wound Culture - Preliminary Gram negative sue 11/03/18 03:42 Urine Culture - Preliminary Urine Catheter - Louise Mixed Gram Positive Organisms 11/03/18 07:43 Nasal Screen MRSA/MSSA - Final Swab (Method) 11/03/18 03:07 Blood Culture - Preliminary Blood Culture (Wb) - Anticubital Left GNR lactose environmental health aide 11/03/18 02:55 Blood Culture - Preliminary Blood Culture (Wb) - Anticubital Right GNR lactose environmental health aide Laboratory Tests Past 24 Hrs 11/03/18 11/03/18 11/03/18 02:55 10:27 13:45 WBC RBC Hgb Hct MCV MCH MCHC RDW RDW Differential Plt Count MPV Diff Path Review Reviewed Sodium Potassium 5.2 H Chloride Carbon Dioxide Anion Gap BUN Creatinine Estim Creat Clear Calc Est GFR (MDRD) Af Amer Est GFR (MDRD) Non-Af BUN/Creatinine Ratio Glucose Calcium Total Bilirubin AST ALT Alkaline Phosphatase Total Protein Albumin Globulin Albumin/Globulin Ratio Random Vancomycin S.aureus Protein A PCR POSITIVE H MRSA (PCR) POSITIVE H 11/04/18 11/04/18 11/04/18 04:25 04:25 08:15 WBC 16.3 H RBC 4.56 L Hgb 11.6 L Hct 36.9 L MCV 80.9 MCH 25.4 L MCHC 31.4 L RDW 18.5 H RDW Differential 54.3 H Plt Count 66 L MPV 11.1 Diff Path Review Sodium 139 Potassium 5.8 H Chloride 105 Carbon Dioxide 20.0 L Anion Gap 14 BUN 83 H Creatinine 4.99 H Estim Creat Clear Calc 15.04 Est GFR (MDRD) Af Amer 15 L Est GFR (MDRD) Non-Af 13 L BUN/Creatinine Ratio 16.6 Glucose 105 Calcium 7.7 L Total Bilirubin 0.90 AST 108 H ALT 52 Alkaline Phosphatase 125 H Total Protein 6.8 Albumin 1.6 L Globulin 5.2 H Albumin/Globulin Ratio 0.3 L Random Vancomycin 14.0 S.aureus Protein A PCR MRSA (PCR) Clinical Impression(s) from Imaging Studies Chest X-Ray 11/03/18 03:03 IMPRESSION: Minimal fluid tracking in the right minor fissure. Interval posterior thoracic spinal fixation. No focal lung consolidative changes. Electronically Signed: Azar Marino, at 3:41 EDT Tel , Service support , Abdomen/Pelvis CT 11/03/18 04:09 IMPRESSION: Negative unenhanced CT of the abdomen and pelvis for acute abnormality Nonobstructive right renal pelvic calculus. Moderate retained stool within the colon and rectum. Correlate for constipation. Cholelithiasis. Louise catheter drainage of the urinary bladder. Electronically Signed: Azar Marino, at 5:14 EDT Tel , Service support , KUB X-Ray 11/03/18 10:19 IMPRESSION: Nonspecific bowel gas pattern. Electronically Signed: Venkata Franklin, at 14:59 EDT , Service support , Lumbar Spine MRI 11/03/18 10:19 IMPRESSION: Again seen is ankylosing spondylitis as described above, unchanged since prior exams. No focal collection or abscess. Stable chronic findings are described above. No significant degenerative disease. Electronically Signed: Kevyn Solis, at 13:38 EDT Tel , Service support , Assessment/Plan Active and Suspected Problems (Last Reviewed 11/03/18 @ 08:23 by Guillermo Park MD) Septic shock (Acute) Acute renal failure (Acute) Severe dehydration (Acute) Lactic acidosis (Acute) Hypoxia (Acute) Bloating (Acute) RECOMMENDATIONS: 1. Continue pressors as necessary 2. Placement of hemodialysis and central lines 3. Continue broad-spectrum antibiotics 4. Wound nurse to evaluate decubitus ulcers 5. Supplemental oxygen as indicated 6. Transition to DNR Comfort Care arrest with intubation IMPRESSIONS: 1. Septic shock secondary to gram-negative Patient with gram-negative noted in wound and blood. Patient is MRSA swab positive, so vancomycin should be continued until cultures are completed. Patient is hypotensive at this time and require pressor therapy. Patient will need to have central line placed for safer administration of medications. Low clinical suspicion for MRSA etiology of septic shock at this time. 2. Acute kidney injury secondary to #1 Patient with very little urine output at this time, elevated BUN and acidosis. Did discuss with nephrology. Patient is open to dialysis at this time, so a temporary dialysis catheter will be placed. Patient does have thrombocytopenia, which would increase the risk for complications, but patient finds this acceptable. Patient may require increased pressor agents to facilitate dialysis. 3. Thrombocytopenia This reportedly is chronic. We will continue with monitoring for bleeding complications. Patient is to have interventional procedures, so increased risk for bleeding is noted. 4. Ankylosing spondylitis/paraplegia/neurogenic bladder with chronic indwelling Louise/psoriasis/debility/decubitus ulcers Complicates care, management, recovery and prognosis. Wound nurse to evaluate decubitus ulcers. TIME: 47 minutes critical care time spent addressing patient's septic shock, acute kidney injury, review of all data and collaboration with care team (8 AM to 11 AM) Code Visit 9xxxx: [id number] Critical care first hour
--- NOTE | 2018-11-04 10:35 | CASEMGMT ---
Addendum entered by Khushboo Garcia 11/04/18 11:31: JOYCELYN put copy of POA in chart, faxed copy to [facility], left original and copy for pt's friend Jacky as he left to get pt's glasses and dentures at [facility]. SW called Magalie at [facility], message left letting her know it is anticipated pt will be here through the weekend and that SW just faxed over clinical updates and POA papers. If pt were to need dialysis ongoingly, this would need to be set up also prior to [facility]. SW to follow up on Wednesday. LASHAUN Oshea Original Note: SW participated in ICU rounds this morning, pt's friends Jacky and Cristine Isaac present. Pt does not have POA forms in the chart, but in prior notes it is documented pt would like Jacky and Cristine to be his POA. SW called [facility], it does not seem that they have forms on their chart either. Pt has three children as per Jacky. One daughter did come in to see pt but prior to that, has not seen any of his children in a long time. SW asked pt if he had completed POA forms in the past. He states no, and is willing to complete them now. Pt confirmed still wanted Cristine and Jacky as POA. SW assisted pt in completing the forms. SW will give a copy to Jacky, put one in the chart, and forward one to the prison. Pt is getting dialysis today, and it is anticipated pt will be here through the weekend. JOYCELYN/MEKA will continue to follow, plan continues to be for pt to return to [facility] at discharge. SW will follow up Wednesday, will send updates to [facility]. LASHAUN Oshea
--- NOTE | 2018-11-04 10:42 | PCM.RX.CS ---
Consult Pharmacy has been consulted to manage selected antiobiotic: Vancomycin Type of Consult: Follow-up Suspected Infection: Other Prior Doses of Antibiotics Received/Current Regimen: Medications Discontinued Medications Vancomycin HCl 1,250 mg/ (Dextrose) 275 mls @ 250 mls/hr IV X1 ONE Stop: 11/03/18 04:54 Last Admin: 11/03/18 04:06 Dose: 250 mls/hr Labs: Sodium 139 mmol/L (136-145) 11/04/18 04:25 Potassium 5.8 mmol/L (3.5-5.1) H 11/04/18 04:25 Chloride 105 mmol/L (98-107) 11/04/18 04:25 Carbon Dioxide 20.0 mmol/L (21.0-32.0) L 11/04/18 04:25 Anion Gap 14 (5-15) 11/04/18 04:25 BUN 83 mg/dL (7-18) H 11/04/18 04:25 Creatinine 4.99 mg/dL (0.70-1.30) H 11/04/18 04:25 Est GFR (MDRD) Af Amer 15 mL/min (>60) L 11/04/18 04:25 Est GFR (MDRD) Non-Af 13 mL/min (>60) L 11/04/18 04:25 BUN/Creatinine Ratio 16.6 RATIO (10-20) 11/04/18 04:25 Glucose 105 mg/dL (74-106) 11/04/18 04:25 Random Vancomycin 14.0 ug/mL (0.0-15.0) 11/04/18 08:15 Microbiology: Microbiology 11/03/18 10:27 Wound - Sacral Gram Stain - Final 11/03/18 10:27 Wound - Sacral Wound Culture - Preliminary Gram negative sue 11/03/18 03:42 Urine Catheter - Louise Urine Culture - Preliminary Mixed Gram Positive Organisms 11/03/18 07:43 Swab (Method) Nasal Screen MRSA/MSSA - Final 11/03/18 03:07 Blood Culture (Wb) - Anticubital Left Blood Culture - Preliminary GNR lactose inspector hairspring truing 11/03/18 02:55 Blood Culture (Wb) - Anticubital Right Blood Culture - Preliminary GNR lactose inspector hairspring truing Weight used for dosin.8 kg Estimated Creatinine Clearance: N/A Goal Trough: 15-20 mcg/mL Pharmacy Plan for Drug Dosing: Patient is pending dialysis this afternoon (11/04). Does not currently fall into dosing parameters and did not receive full load due to severe acute renal failure. Per Dr. Gomez verbal order will give 1g vancomycin now and follow up once dialysis line in and dialysis has begun according to algorithm. Will check random trough tomorrow due to uncertainty of hemodialysis schedule. Pharmacy Service will continue to monitor and adjust dosing as required. Follow-Up Labs: Trough Vancomycin - RANDOM 11/05/18
--- NOTE | 2018-11-04 10:46 | PHA.PHARE_ITS ---
Consult Pharmacy has been consulted to manage selected antiobiotic: Vancomycin Type of Consult: Follow-up Suspected Infection: Other Prior Doses of Antibiotics Received/Current Regimen: Medications Discontinued Medications Vancomycin HCl 1,250 mg/ (Dextrose) 275 mls @ 250 mls/hr IV X1 ONE Stop: 11/03/18 04:54 Last Admin: 11/03/18 04:06 Dose: 250 mls/hr Labs: Sodium 139 mmol/L (136-145) 11/04/18 04:25 Potassium 5.8 mmol/L (3.5-5.1) H 11/04/18 04:25 Chloride 105 mmol/L (98-107) 11/04/18 04:25 Carbon Dioxide 20.0 mmol/L (21.0-32.0) L 11/04/18 04:25 Anion Gap 14 (5-15) 11/04/18 04:25 BUN 83 mg/dL (7-18) H 11/04/18 04:25 Creatinine 4.99 mg/dL (0.70-1.30) H 11/04/18 04:25 Est GFR (MDRD) Af Amer 15 mL/min (>60) L 11/04/18 04:25 Est GFR (MDRD) Non-Af 13 mL/min (>60) L 11/04/18 04:25 BUN/Creatinine Ratio 16.6 RATIO (10-20) 11/04/18 04:25 Glucose 105 mg/dL (74-106) 11/04/18 04:25 Random Vancomycin 14.0 ug/mL (0.0-15.0) 11/04/18 08:15 Microbiology: Microbiology 11/03/18 10:27 Wound - Sacral Gram Stain - Final 11/03/18 10:27 Wound - Sacral Wound Culture - Preliminary Gram negative sue 11/03/18 03:42 Urine Catheter - Louise Urine Culture - Preliminary Mixed Gram Positive Organisms 11/03/18 07:43 Swab (Method) Nasal Screen MRSA/MSSA - Final 11/03/18 03:07 Blood Culture (Wb) - Anticubital Left Blood Culture - Preliminary GNR lactose manager produce 11/03/18 02:55 Blood Culture (Wb) - Anticubital Right Blood Culture - Preliminary GNR lactose manager produce Weight used for dosin.8 kg Estimated Creatinine Clearance: N/A Goal Trough: 15-20 mcg/mL Pharmacy Plan for Drug Dosing: Patient is pending dialysis this afternoon (11/04). Does not currently fall into dosing parameters and did not receive full load due to severe acute renal failure. Per Dr. Gomez verbal order will give 1g vancomycin now and follow up once dialysis line in and dialysis has begun according to algorithm. Will check random trough tomorrow due to uncertainty of hemodialysis schedule. Pharmacy Service will continue to monitor and adjust dosing as required. Follow-Up Labs: Trough Vancomycin - RANDOM 11/05/18
[2018-11-04] MEDS: Vancomycin IV 1,000 MG/200 ML BAG 200 MG IV (11:57)
[2018-11-04] MEDS: proMETHazine 25 MG/ML Syringe 12.5 MG IV (13:01)
--- NOTE | 2018-11-04 14:12 | RAD_ITS ---
STUDY: X-RAY CHEST REASON FOR EXAM: Male, 62 years old. Post dialysis catheter placement. TECHNIQUE: Single AP portable view of the chest. COMPARISON: Comparison is made with prior study dated November 03, 2018. FINDINGS: A right-sided dialysis catheter has been placed. The tip is at the junction of the superior vena cava and right atrium. A left-sided internal jugular venous catheter has been placed with the tip in the right atrium. EKG electrodes are seen. Since prior study, there has been progressive infiltrate in the right upper lobe as well as increased markings in the left lung base. Follow-up is recommended. Blunting of both scheduling angle. Normal size heart. Normal mediastinum and bernice. Normal visualized pulmonary arteries. Normal visualized aortic arch and descending thoracic aorta. Prior fusion of the thoracic spine utilizing screw and sue fixation device. Normal visualized ribs, clavicles, and shoulders. There is no demonstrated abnormality of the visualized soft tissue structures of the upper abdomen. RAD/Chest 1 View (Portable) IMPRESSION: The tip of the right dialysis catheter is at the junction of the superior vena cava and right atrium. Progressive right upper lobe infiltrate with increased markings at the left lung base. Electronically Signed: Venkata Franklin, at 15:08 EDT , Service support ,
--- NOTE | 2018-11-04 14:17 | PCM.OPRPT ---
Report of Operation Date of Procedure: 11/04/18 Surgery/Procedure Performed:: Dialysis catheter insertion Description of Surgical Findings:: Temporary dialysis catheter placement procedure note Indication: Hemodialysis Procedure: A time-out was completed to verify correct patient, indication, medication allergies, procedure, coagulation studies, informed consent signed, and equipment needed. The patient was placed in the supine position for a central line placement to the rt IJ vein. The patients rt neck was prepped using chlorhexidine and a full body sterile drape was applied. 1% lidocaine was used to anesthetize the surrounding skin. A 12fr 20 cm temporary dialysis catheter introduced into the internal jugular vein using the modified Seldinger technique with the assistance of ultrasound. The catheter was threaded smoothly over the guidewire, the site was dilated twice up in a stepwise fashion, the guidewire was removed easily, nonpulsatile blood returned. All ports were aspirated of air and flushed with sterile saline, followed by U 1000 heparin 1.3 mL's per port. The catheter was sutured in place and covered with an occlusive dressing impregnated with chlorhexidine. Post-procedure: The patient tolerated the procedure well. Vital signs remained stable. EBL 10 cc. No complications. Chest X Ray ordered to confirm tip placement and the absence of pneumothorax. Code Visit Procedures: 23583 Insert Non-tunnel CV Cath
--- NOTE | 2018-11-04 14:20 | PCM.OPRPT ---
Report of Operation Date of Procedure: 11/04/18 Surgery/Procedure Performed:: Triple-lumen catheter insertion Description of Surgical Findings:: Central line placement procedure note Indication: IV access/hemodynamic instability/vasoactive medications Procedure: A time-out was completed to verify correct patient, indication, medication allergies, procedure, coagulation studies, informed consent signed, and equipment needed. The patient was placed in the supine position for a central line placement to the left IJ vein. The patients left neck was prepped using chlorhexidine and a full body sterile drape was applied. 1% lidocaine was used to anesthetize the surrounding skin. A 7fr 20 cm blue guard triple lumen catheter introduced into the internal jugular/subclavian/common femoral vein using the modified Seldinger technique with the assistance of ultrasound. The catheter was threaded smoothly over the guidewire, the guidewire was removed easily, nonpulsatile blood returned. All ports were aspirated of air and flushed with sterile saline. The catheter was sutured in place and covered with an occlusive dressing impregnated with chlorhexidine. Post-procedure: The patient tolerated the procedure well. Vital signs remained stable. EBL 5 cc. No complications. Chest X Ray ordered to confirm tip placement and the absence of pneumothorax. Code Visit Procedures: 19306 Insert Non-tunnel CV Cath
--- NOTE | 2018-11-04 16:19 | DIALYSIS ---
Report from primary RN, Beckie Access: Right IJ Iveth. Inserted today. Placement verified by Dr. Gomez. Site benign, dressing dry and intact. Connections secure and Hemosafe clips applied x 2. Patient very lethargic.
[2018-11-04] MEDS: Heparin 10,000 UNITS/10 ML Vial 2600 UNITS IV (18:13)
--- NOTE | 2018-11-04 18:32 | DIALYSIS ---
HD tx complete. 2 hour run, 2k bath. NO fluid removed. Patient tolerated HD tx well. Right IJ Iveth: site benign, dressing dry and intact, lumen flushed with NS, filled to volume with Heparin, capped and clamped. Patient's next HD tx should be 11/05/18. Report given to hospital RN, Beckie Diamond.
[2018-11-05] VITALS (40 sets, daily range): BP systolic 64–129; BP diastolic 47–111; PULSE 85–165; RESP 14–29; TEMP 36.1–37.2; O2SAT 89–100
[2018-11-05] MEDS: Acetaminophen 325 MG Tablet 650 MG PO (02:38)
[2018-11-05] MEDS: traMADol 50 MG Tablet PO ×2 (04:03→16:43)
[2018-11-05 04:23] LABS: Absolute Lymphocyte Count 0.64 X10^3/ul (0.83-4.51); Absolute Neutrophil Count 11.1 X10^3/uL (2.0-7.7); Basophil# 0.01 X10^3/uL; Basophil% 0.1 % (0-1); Eosinophil# 0.02 X10^3/uL; Eosinophils% 0.2 % (0-5); Hematocrit 34.2 % (40-54); Hemoglobin 10.9 g/dl (13.0-16.5); Lymphocyte # 0.64 X10^3/ul (4.0); Lymphocyte % 4.8 % (19-41); Mean Corp Hgb Conc 31.9 g/gl (32-36); Mean Corpuscular Hgb 25.1 pg (27.0-32.0); Mean Corpuscular Volume 78.6 fL (80-94); Monocyte# 1.31 X10^3/uL; Monocyte% 9.9 % (0-10); Neutrophil # 11.13 X10^3/uL (2.7-7.7); Platelet Count 35 K/mm3 (150-450); RBC Distribution Width CV 18.3 % (11.6-14.6); RBC Distribution Width SD 51.4 fl (35.1-43.9); Red Blood Count 4.35 M/mm3 (4.6-6.2); White Blood Count 13.2 K/mm3 (4.4-11.0)
[2018-11-05 04:24] LABS: Differential Indicated SCAN CRITERIA MET; POSITIVE COUNT YES; POSITIVE DIFFERENTIAL NO; POSITIVE MORPHOLOGY YES
[2018-11-05 04:28] LABS: Anion Gap 12 (5-15); BUN 69 mg/dL (7-18); BUN/Creat Ratio 16.5 RATIO (10-20); Calcium,Total 7.8 mg/dL (8.5-10.1); Chloride 104 mmol/L (98-107); Creatinine, Serum 4.19 mg/dL (0.70-1.30); EST Glomerular Filtration Rate 15 mL/min (>60); Est Glom Filt Rate - Afr Amer 19 mL/min (>60); Estimated Creatinine Clearance 17.91 ml/min; Glucose 70 mg/dL (74-106); Potassium 4.9 mmol/L (3.5-5.1); Sodium Level 140 mmol/L (136-145)
[2018-11-05 04:58] LABS: Platelet Estimate MKD DEC (ADEQ)
[2018-11-05 04:59] LABS: Differential Comment SCANNED; Dohle Bodies 1+
[2018-11-05 05:00] LABS: Anisocytosis 1+
[2018-11-05] MEDS: Magnesium Citrate 300 ML PO (06:52)
--- NOTE | 2018-11-05 07:03 | EKG12_ITS ---
Test Reason : RHYTHM CHANGE Blood Pressure : / mmHG Vent. Rate : 156 BPM Atrial Rate : 141 BPM P-R Int : 000 ms QRS Dur : 082 ms QT Int : 294 ms P-R-T Axes : 000 -06 045 degrees QTc Int : 473 ms Atrial fibrillation Nonspecific ST abnormality ,Possibly Digitalis Effect Abnormal ECG Confirmed by CHARO FERGUSON, ROLANDO ([id number]), commissioning editor CJ BACH ([id number]) on 11/09/2018 12:45:46 PM Referred By: Guillermo Park Confirmed By:ROLANDO MANCILLA MD
--- NOTE | 2018-11-05 07:06 | PCM.PN.INT ---
Subjective: Patient did okay overnight. Patient has remained on pressor therapy. Patient did tolerate hemodialysis yesterday, but no fluid was removed. Patient reports subjective improvement in overall condition. Patient did have low platelets this morning, but no bleeding complications have been reported overnight. General: Alert, Cooperative, No apparent distress, - - Appears older than stated age. HEENT: Atraumatic, PERRLA, EOMI, Normocephalic, - - Scleral injection without icterus Oral: Moist Mucosa, No Gingival or Mucosal Lesions/ Ulcerations Neck: Supple, No Nodes, Trachea Midline, JVD, Right Lungs: No rhonchi, No wheeze, Diminished, Rales, - - Symmetric expansion. Cardiovascular: Normal S1, Normal S2, No murmurs, No rub noted, No Gallop, Tachycardic, - - Developed A. fib with RVR following my evaluation Abdomen: Bowel Sounds Present, Soft, Distended, - - No rebound or guarding Extremities: No clubbing, No cyanosis, Edema Skin: - - No significant change compared to previous Musculoskeletal: No Tenderness to Palpation of Joints or Extremities Lymphatic: No Cervical, Supraclavicular, or Inguinal Adenopathy Neurological: - - Unchanged from previous. Psych/Mental Status: Flat Affect Vital Signs Temp Pulse Resp BP Pulse Ox 36.2 C L 159 H 23 H 78/68 L 96 11/05/18 05:00 11/05/18 07:00 11/05/18 07:00 11/05/18 07:00 11/05/18 07:00 Oxygen Flow Rate (L/min) 2 Oxygen Delivery Method Nasal Cannula Weight: 83.8 kg Body Mass Index (BMI) 27.1 Intake and Output for Last 24 Hours 11/03/18 11/04/18 11/05/18 23:59 23:59 23:59 Intake Total 4264 / 4264 829 / 829 268 / 268 Output Total 100 / 100 125 / 125 50 / 50 Balance 4164 / 4164 704 / 704 218 / 218 Labs (Last 48 Hours) 11/03/18 11/03/18 11/03/18 02:55 02:55 02:55 WBC RBC Hgb Hct MCV MCH MCHC RDW RDW Differential Plt Count MPV Immature Gran % (Auto) Neut % (Auto) Lymph % (Auto) [place] % (Auto) Eos % (Auto) Baso % (Auto) Absolute Neuts (auto) Absolute Lymphs (auto) Total Counted Differential Comment Diff Path Review Reviewed Dohle Bodies Platelet Estimate Anisocytosis Sodium Potassium Chloride Carbon Dioxide Anion Gap BUN Creatinine Estim Creat Clear Calc Est GFR (MDRD) Af Amer Est GFR (MDRD) Non-Af BUN/Creatinine Ratio Glucose Lactic Acid Calcium Phosphorus 5.9 H Magnesium 1.4 L Total Bilirubin AST ALT Alkaline Phosphatase Total Protein Albumin Globulin Albumin/Globulin Ratio Random Vancomycin Hep Bs Antigen Hep Bs Antibody Hep B Core IgM Ab S.aureus Protein A PCR MRSA (PCR) 11/03/18 11/03/18 11/03/18 07:15 10:27 13:45 WBC RBC Hgb Hct MCV MCH MCHC RDW RDW Differential Plt Count MPV Immature Gran % (Auto) Neut % (Auto) Lymph % (Auto) [place] % (Auto) Eos % (Auto) Baso % (Auto) Absolute Neuts (auto) Absolute Lymphs (auto) Total Counted Differential Comment Diff Path Review Dohle Bodies Platelet Estimate Anisocytosis Sodium Potassium 5.2 H Chloride Carbon Dioxide Anion Gap BUN Creatinine Estim Creat Clear Calc Est GFR (MDRD) Af Amer Est GFR (MDRD) Non-Af BUN/Creatinine Ratio Glucose Lactic Acid 4.2 H* Calcium Phosphorus Magnesium Total Bilirubin AST ALT Alkaline Phosphatase Total Protein Albumin Globulin Albumin/Globulin Ratio Random Vancomycin Hep Bs Antigen Hep Bs Antibody Hep B Core IgM Ab S.aureus Protein A PCR POSITIVE H MRSA (PCR) POSITIVE H 11/04/18 11/04/18 11/04/18 04:25 04:25 08:15 WBC 16.3 H RBC 4.56 L Hgb 11.6 L Hct 36.9 L MCV 80.9 MCH 25.4 L MCHC 31.4 L RDW 18.5 H RDW Differential 54.3 H Plt Count 66 L MPV 11.1 Immature Gran % (Auto) Neut % (Auto) Lymph % (Auto) [place] % (Auto) Eos % (Auto) Baso % (Auto) Absolute Neuts (auto) Absolute Lymphs (auto) Total Counted Differential Comment Diff Path Review Dohle Bodies Platelet Estimate Anisocytosis Sodium 139 Potassium 5.8 H Chloride 105 Carbon Dioxide 20.0 L Anion Gap 14 BUN 83 H Creatinine 4.99 H Estim Creat Clear Calc 15.04 Est GFR (MDRD) Af Amer 15 L Est GFR (MDRD) Non-Af 13 L BUN/Creatinine Ratio 16.6 Glucose 105 Lactic Acid Calcium 7.7 L Phosphorus Magnesium Total Bilirubin 0.90 AST 108 H ALT 52 Alkaline Phosphatase 125 H Total Protein 6.8 Albumin 1.6 L Globulin 5.2 H Albumin/Globulin Ratio 0.3 L Random Vancomycin 14.0 Hep Bs Antigen Hep Bs Antibody Hep B Core IgM Ab S.aureus Protein A PCR MRSA (PCR) 11/04/18 11/05/18 11/05/18 17:09 04:05 04:05 WBC 13.2 H RBC 4.35 L Hgb 10.9 L Hct 34.2 L MCV 78.6 L MCH 25.1 L MCHC 31.9 L RDW 18.3 H RDW Differential 51.4 H Plt Count 35 L* MPV TNP Immature Gran % (Auto) 1.000 H Neut % (Auto) 84.0 H Lymph % (Auto) 4.8 L [place] % (Auto) 9.9 Eos % (Auto) 0.2 Baso % (Auto) 0.1 Absolute Neuts (auto) 11.1 H Absolute Lymphs (auto) 0.64 L Total Counted Not Reportable Differential Comment SCANNED Diff Path Review May foll Dohle Bodies 1+ Platelet Estimate MKD DEC Anisocytosis 1+ Sodium 140 Potassium 4.9 Chloride 104 Carbon Dioxide 24.0 Anion Gap 12 BUN 69 H Creatinine 4.19 H Estim Creat Clear Calc 17.91 Est GFR (MDRD) Af Amer 19 L Est GFR (MDRD) Non-Af 15 L BUN/Creatinine Ratio 16.5 Glucose 70 L Lactic Acid Calcium 7.8 L Phosphorus Magnesium Total Bilirubin AST ALT Alkaline Phosphatase Total Protein Albumin Globulin Albumin/Globulin Ratio Random Vancomycin Hep Bs Antigen Pending Hep Bs Antibody Pending Hep B Core IgM Ab Pending S.aureus Protein A PCR MRSA (PCR) Microbiology 11/03/18 03:07 Blood Culture (Wb) - Anticubital Left Blood Culture - Preliminary GNR lactose salicylic acid blender 11/03/18 10:27 Wound - Sacral Gram Stain - Final 11/03/18 10:27 Wound - Sacral Wound Culture - Preliminary Gram negative sue 11/03/18 03:42 Urine Catheter - Louise Urine Culture - Preliminary Mixed Gram Positive Organisms 11/03/18 07:43 Swab (Method) Nasal Screen MRSA/MSSA - Final 11/03/18 02:55 Blood Culture (Wb) - Anticubital Right Blood Culture - Preliminary GNR lactose salicylic acid blender Clinical Impression(s) from Imaging Studies Chest X-Ray 11/04/18 14:12 IMPRESSION: The tip of the right dialysis catheter is at the junction of the superior vena cava and right atrium. Progressive right upper lobe infiltrate with increased markings at the left lung base. Electronically Signed: Venkata Franklin, at 15:08 EDT , Service support , Medical Necessity - Tobacco Use Smoking Status: Former smoker Assessment/Plan All Active Problems (Last Reviewed 11/03/18 @ 08:23 by Guillermo Park MD) Septic shock (Acute) Acute renal failure (Acute) Severe dehydration (Acute) Lactic acidosis (Acute) Hypoxia (Acute) Bloating (Acute) Fall (Resolved) Rhabdomyolysis (Resolved) RECOMMENDATIONS: 1. Continue pressors as necessary 2. Hemodialysis per nephrology 3. Continue broad-spectrum antibiotics 4. Wound nurse to monitor decubitus ulcers 5. Supplemental oxygen as indicated 6. Transition to DNR Comfort Care arrest with intubation IMPRESSIONS: 1. Septic shock secondary to gram-negative Patient with gram-negative noted in wound and blood. Patient is MRSA swab positive, so vancomycin should be continued until cultures are completed. Patient is hypotensive at this time and require pressor therapy. We will continue to monitor patient closely for signs of ischemic changes of the extremities. Patient appears to be doing better this morning. 2. Acute kidney injury secondary to #1 Patient with very little urine output at this time, elevated BUN and acidosis. Patient did tolerate hemodialysis yesterday. Anticipate 3 days of therapy, but defer to nephrology. Patient does have thrombocytopenia, which would increase the risk for complications, but patient finds this acceptable. Patient may require increased pressor agents to facilitate dialysis. 3. Thrombocytopenia This reportedly is chronic. We will continue with monitoring for bleeding complications. Patient is not having any active bleeding, so transfusion is not indicated at this time 4. Ankylosing spondylitis/paraplegia/neurogenic bladder with chronic indwelling Louise/psoriasis/debility/decubitus ulcers Complicates care, management, recovery and prognosis. Wound nurse to evaluate decubitus ulcers. 5. A. fib with RVR Patient has developed A. fib with RVR. We will continue to support blood pressure. Patient may need to be initiated on amiodarone. Patient had an echocardiogram in April that showed relatively preserved EF. TIME: 40 minutes critical care time spent addressing patient's septic shock, acute kidney injury, review of all data and collaboration with care team (6 AM to 7:15 AM) Code Visit 9xxxx: [id number] Critical care first hour
--- NOTE | 2018-11-05 08:02 | PCM.PN.HOSP ---
Patient Problems: Active and Suspected Problems (Last Reviewed 11/03/18 @ 08:23 by Guillermo Park MD) Septic shock (Acute) Acute renal failure (Acute) Severe dehydration (Acute) Lactic acidosis (Acute) Hypoxia (Acute) Bloating (Acute) Subjective: Does not have any significant pain today but he is very tired. No issues overnight he had dialysis yesterday and a central line was placed. He is still on levofed. Vitals/I&O's: Vital Signs Temp Pulse Resp BP Pulse Ox 97.1 F L 159 H 23 H 78/68 L 96 11/05/18 05:00 11/05/18 07:00 11/05/18 07:00 11/05/18 07:00 11/05/18 07:00 Oxygen Flow Rate (L/min) 2 Oxygen Delivery Method Nasal Cannula Weight: 184 lb 11.958 oz Body Mass Index (BMI) 27.1 Intake and Output for Last 24 Hours 11/03/18 11/04/18 11/05/18 23:59 23:59 23:59 Intake Total 4264 / 4264 829 / 829 268 / 268 Output Total 100 / 100 125 / 125 50 / 50 Balance 4164 / 4164 704 / 704 218 / 218 General: Alert, Oriented x3, Cooperative, No apparent distress HEENT: Atraumatic, PERRLA, EOMI, Normocephalic Oral: Moist Mucosa Neck: Supple, No JVD Lungs: Clear to auscultation, Normal air movement, No rhonchi, No wheeze, Diminished, Rales Cardiovascular: Regular rate, Regular Rhythm, Normal S1, Normal S2, No murmurs Abdomen: Soft, Non Tender, Non-Distended, No Hepato-splenomegaly Extremities: No edema, Capillary Refill Less than 3 Seconds Skin: No rashes, No breakdown Neurological: Neuro grossly intact, Sensory exam intact to light touch and pain Psych/Mental Status: Appropriate, Flat Affect Microbiology Past 72 Hours 11/03/18 03:07 Blood Culture (Wb) - Anticubital Left Blood Culture - Preliminary GNR lactose blocker and sewer 11/03/18 10:27 Wound - Sacral Gram Stain - Final 11/03/18 10:27 Wound - Sacral Wound Culture - Preliminary Gram negative sue 11/03/18 03:42 Urine Catheter - Louise Urine Culture - Preliminary Mixed Gram Positive Organisms 11/03/18 07:43 Swab (Method) Nasal Screen MRSA/MSSA - Final 11/03/18 02:55 Blood Culture (Wb) - Anticubital Right Blood Culture - Preliminary GNR lactose blocker and sewer Laboratory Results 11/04/18 08:15: Random Vancomycin 14.0 11/04/18 17:09: Hep Bs Antigen Pending, Hep Bs Antibody Pending, Hep B Core IgM Ab Pending 11/05/18 04:05: WBC 13.2 H, RBC 4.35 L, Hgb 10.9 L, Hct 34.2 L, MCV 78.6 L, MCH 25.1 L, MCHC 31.9 L, RDW 18.3 H, RDW Differential 51.4 H, Plt Count 35 L*, MPV TNP, Immature Gran % (Auto) 1.000 H, Neut % (Auto) 84.0 H, Lymph % (Auto) 4.8 L, [place] % (Auto) 9.9, Eos % (Auto) 0.2, Baso % (Auto) 0.1, Absolute Neuts (auto) 11.1 H, Absolute Lymphs (auto) 0.64 L, Total Counted Not Reportable, Differential Comment SCANNED, Diff Path Review May foll, Dohle Bodies 1+, Platelet Estimate MKD DEC, Anisocytosis 1+ 11/05/18 04:05: Sodium 140, Potassium 4.9, Chloride 104, Carbon Dioxide 24.0, Anion Gap 12, BUN 69 H, Creatinine 4.19 H, Estim Creat Clear Calc 17.91, Est GFR (MDRD) Af Amer 19 L, Est GFR (MDRD) Non-Af 15 L, BUN/Creatinine Ratio 16.5, Glucose 70 L, Calcium 7.8 L 11/05/18 07:40: Random Vancomycin Pending Current Medications Acetaminophen (Tylenol) 650 mg PO Q6H PRN PRN PRN Reason: Mild pain 1-3/Temp > 100.7 F Last Admin: 11/05/18 02:38 Dose: 650 mg Albuterol Sulfate (Ventolin Aerosols) 2.5 mg INHALATION Q2H PRN PRN PRN Reason: SOB/Wheezing Bisacodyl (Dulcolax) 10 mg RECTAL DAILY PRN PRN PRN Reason: CONSTIPATION Last Admin: 11/04/18 07:07 Dose: 10 mg Dextrose (D50w Syringe) 0 gm IV X1 PRN; Protocol PRN Reason: Hypoglycemia Diphenhydramine HCl (Benadryl) 50 mg PO Q6H PRN PRN Reason: ITCHING Ergocalciferol (Vitamin D) 50,000 unit PO Gupta [facility] Escitalopram Oxalate (Lexapro) 10 mg PO DAILY [facility] Last Admin: 11/04/18 10:25 Dose: 10 mg Glucagon () 1 mg IM .X1 PRN PRN Reason: Hypoglycemia Guaifenesin (Mucinex) 600 mg PO BID [facility] Last Admin: 11/04/18 21:27 Dose: 600 mg Heparin Sodium (Porcine) () 2,500 units IV UD PRN PRN Reason: HEPARIN FLUSH Hydrocortisone (Hytone) 1 applic TOPICAL BID [facility] Last Admin: 11/04/18 21:27 Dose: 1 applicatio Piperacillin Sod/Tazobactam (Sod 3.375 gm/ Sodium Chloride) 50 mls @ 12.5 mls/hr IV Q12 [facility] Last Admin: 11/04/18 21:27 Dose: 12.5 mls/hr Vancomycin IV Pharmacy to Dose (1 ea/ Sodium Chloride) 500 mls @ 250 mls/hr IV X1 PRN; Protocol PRN Reason: Rx to Dose Sodium Chloride () 250 mls @ 15 mls/hr IV .[id number] PRN PRN Reason: SALINE FLUSH Last Admin: 11/03/18 21:55 Dose: 15 mls/hr Norepinephrine Bitartrate 8 mg (/ Sodium Chloride) 250 mls @ 9.38 mls/hr CONT INF .[id number] [facility] Last Admin: 11/05/18 01:06 Dose: 9.38 mls/hr Magnesium Hydroxide (Milk Of Magnesia) 30 ml PO DAILY PRN PRN PRN Reason: Constipation Nutritional Formula (Lactose Free) (Ensure Enlive) 120 ml PO 4X/DAY [facility] Last Admin: 11/04/18 21:27 Dose: 120 ml Nystatin (Mycostatin Powder) 1 applic TOPICAL DAILY [facility]; Protocol Last Admin: 11/04/18 10:25 Dose: 1 applic Ondansetron HCl (Zofran) 4 mg IV Q8H PRN PRN PRN Reason: NAUSEA/VOMITING Last Admin: 11/04/18 22:40 Dose: 4 mg Pantoprazole Sodium (Protonix) 20 mg PO DAILY [facility] Last Admin: 11/04/18 10:25 Dose: 20 mg Polyethylene Glycol (Miralax) 17 gm PO BID [facility] Last Admin: 11/04/18 21:27 Dose: 17 gm Sodium Chloride () 5 - 15 ml IV UD PRN PRN Reason: SALINE FLUSH Last Admin: 11/04/18 22:40 Dose: 10 ml Sodium Chloride () 10 - 40 ml IV UD PRN PRN Reason: MULTILUMEN/HICMAN CATH FLUSH Sodium Chloride () 10 ml IV UD PRN PRN Reason: Dialysis Catheter Flush Tramadol HCl (Ultram) 50 mg PO Q12H PRN PRN PRN Reason: PAIN Last Admin: 11/05/18 04:03 Dose: 50 mg Medical Necessity - Tobacco Use Smoking Status: Former smoker Assessment/Plan All Active Problems (Last Reviewed 11/03/18 @ 08:23 by Guillermo Park MD) Septic shock (Acute) Acute renal failure (Acute) Severe dehydration (Acute) Lactic acidosis (Acute) Hypoxia (Acute) Bloating (Acute) Fall (Resolved) Rhabdomyolysis (Resolved) 1. Septic shock secondary to UTI and possible decubitus ulcer/acute renal failure/increased LFT -Transfer to the ICU because he revoked his CC status and wanted to have pressors to support his blood pressure -Gram-negative rods are growing in his blood -Continue with IV Zosyn and hold fluids for now continue with pressor support. -His leukocytosis is improving however his renal function is worsening, he had a dialysis catheter placed and he underwent his first session of dialysis yesterday -Appreciate nephrology assistance -AST increased from 64-108, will continue to monitor 2. 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 Thrombocytopenia -Platelet count is 35 today and this is likely secondary to his infection -Continue to monitor -We will discontinue heparin and place him on SCDs 4. A. fib with RVR -This is likely secondary to the levo fed and his chronic conditions -He had a normal echo in April -May be started on amiodarone to control his rhythm, though I do anticipate that once he is off the Levophed his A. fib would probably resolve as well DVT: SCDs Code Visit Inpatient E&M: 46818 Subs Hosp L2
--- NOTE | 2018-11-05 08:09 | PN_ITS ---
Patient Problems: Active and Suspected Problems (Last Reviewed 11/03/18 @ 08:23 by Guillermo Park MD) Septic shock (Acute) Acute renal failure (Acute) Severe dehydration (Acute) Lactic acidosis (Acute) Hypoxia (Acute) Bloating (Acute) Subjective: Does not have any significant pain today but he is very tired. No issues overnight he had dialysis yesterday and a central line was placed. He is still on levofed. Vitals/I&O's: Vital Signs Temp Pulse Resp BP Pulse Ox 97.1 F L 159 H 23 H 78/68 L 96 11/05/18 05:00 11/05/18 07:00 11/05/18 07:00 11/05/18 07:00 11/05/18 07:00 Oxygen Flow Rate (L/min) 2 Oxygen Delivery Method Nasal Cannula Weight: 184 lb 11.958 oz Body Mass Index (BMI) 27.1 Intake and Output for Last 24 Hours 11/03/18 11/04/18 11/05/18 23:59 23:59 23:59 Intake Total 4264 / 4264 829 / 829 268 / 268 Output Total 100 / 100 125 / 125 50 / 50 Balance 4164 / 4164 704 / 704 218 / 218 General: Alert, Oriented x3, Cooperative, No apparent distress HEENT: Atraumatic, PERRLA, EOMI, Normocephalic Oral: Moist Mucosa Neck: Supple, No JVD Lungs: Clear to auscultation, Normal air movement, No rhonchi, No wheeze, Dim inished, Rales Cardiovascular: Regular rate, Regular Rhythm, Normal S1, Normal S2, No murmurs Abdomen: Soft, Non Tender, Non-Distended, No Hepato-splenomegaly Extremities: No edema, Capillary Refill Less than 3 Seconds Skin: No rashes, No breakdown Neurological: Neuro grossly intact, Sensory exam intact to light touch and pain Psych/Mental Status: Appropriate, Flat Affect Microbiology Past 72 Hours 11/03/18 03:07 Blood Culture (Wb) - Anticubital Left Blood Culture - Preliminary GNR lactose medical biller coder 11/03/18 10:27 Wound - Sacral Gram Stain - Final 11/03/18 10:27 Wound - Sacral Wound Culture - Preliminary Gram negative sue 11/03/18 03:42 Urine Catheter - Louise Urine Culture - Preliminary Mixed Gram Positive Organisms 11/03/18 07:43 Swab (Method) Nasal Screen MRSA/MSSA - Final 11/03/18 02:55 Blood Culture (Wb) - Anticubital Right Blood Culture - Preliminary GNR lactose medical biller coder Laboratory Results 11/04/18 08:15: Random Vancomycin 14.0 11/04/18 17:09: Hep Bs Antigen Pending, Hep Bs Antibody Pending, Hep B Core IgM Ab Pending 11/05/18 04:05: WBC 13.2 H, RBC 4.35 L, Hgb 10.9 L, Hct 34.2 L, MCV 78.6 L, MCH 25.1 L, MCHC 31.9 L, RDW 18.3 H, RDW Differential 51.4 H, Plt Count 35 L*, MPV TNP, Immature Gran % (Auto) 1.000 H, Neut % (Auto) 84.0 H, Lymph % (Auto) 4.8 L, [place] % (Auto) 9.9, Eos % (Auto) 0.2, Baso % (Auto) 0.1, Absolute Neuts (auto) 11.1 H, Absolute Lymphs (auto) 0.64 L, Total Counted Not Reportable, Differential Comment SCANNED, Diff Path Review May foll, Dohle Bodies 1+, Platelet Estimate MKD DEC, Anisocytosis 1+ 11/05/18 04:05: Sodium 140, Potassium 4.9, Chloride 104, Carbon Dioxide 24.0, Anion Gap 12, BUN 69 H, Creatinine 4.19 H, Estim Creat Clear Calc 17.91, Est GFR (MDRD) Af Amer 19 L, Est GFR (MDRD) Non-Af 15 L, BUN/Creatinine Ratio 16.5, Glucose 70 L, Calcium 7.8 L 11/05/18 07:40: Random Vancomycin Pending Current Medications Acetaminophen (Tylenol) 650 mg PO Q6H PRN PRN PRN Reason: Mild pain 1-3/Temp > 100.7 F Last Admin: 11/05/18 02:38 Dose: 650 mg Albuterol Sulfate (Ventolin Aerosols) 2.5 mg INHALATION Q2H PRN PRN PRN Reason: SOB/Wheezing Bisacodyl (Dulcolax) 10 mg RECTAL DAILY PRN PRN PRN Reason: CONSTIPATION Last Admin: 11/04/18 07:07 Dose: 10 mg Dextrose (D50w Syringe) 0 gm IV X1 PRN; Protocol PRN Reason: Hypoglycemia Diphenhydramine HCl (Benadryl) 50 mg PO Q6H PRN PRN Reason: ITCHING Ergocalciferol (Vitamin D) 50,000 unit PO Gupta [facility] Escitalopram Oxalate (Lexapro) 10 mg PO DAILY [facility] Last Admin: 11/04/18 10:25 Dose: 10 mg Glucagon () 1 mg IM .X1 PRN PRN Reason: Hypoglycemia Guaifenesin (Mucinex) 600 mg PO BID [facility] Last Admin: 11/04/18 21:27 Dose: 600 mg Heparin Sodium (Porcine) () 2,500 units IV UD PRN PRN Reason: HEPARIN FLUSH Hydrocortisone (Hytone) 1 applic TOPICAL BID [facility] Last Admin: 11/04/18 21:27 Dose: 1 applicatio Piperacillin Sod/Tazobactam (Sod 3.375 gm/ Sodium Chloride) 50 mls @ 12.5 mls/hr IV Q12 [facility] Last Admin: 11/04/18 21:27 Dose: 12.5 mls/hr Vancomycin IV Pharmacy to Dose (1 ea/ Sodium Chloride) 500 mls @ 250 mls/hr IV X1 PRN; Protocol PRN Reason: Rx to Dose Sodium Chloride () 250 mls @ 15 mls/hr IV .[id number] PRN PRN Reason: SALINE FLUSH Last Admin: 11/03/18 21:55 Dose: 15 mls/hr Norepinephrine Bitartrate 8 mg (/ Sodium Chloride) 250 mls @ 9.38 mls/hr CONT INF .[id number] [facility] Last Admin: 11/05/18 01:06 Dose: 9.38 mls/hr Magnesium Hydroxide (Milk Of Magnesia) 30 ml PO DAILY PRN PRN PRN Reason: Constipation Nutritional Formula (Lactose Free) (Ensure Enlive) 120 ml PO 4X/DAY [facility] Last Admin: 11/04/18 21:27 Dose: 120 ml Nystatin (Mycostatin Powder) 1 applic TOPICAL DAILY [facility]; Protocol Last Admin: 11/04/18 10:25 Dose: 1 applic Ondansetron HCl (Zofran) 4 mg IV Q8H PRN PRN PRN Reason: NAUSEA/VOMITING Last Admin: 11/04/18 22:40 Dose: 4 mg Pantoprazole Sodium (Protonix) 20 mg PO DAILY [facility] Last Admin: 11/04/18 10:25 Dose: 20 mg Polyethylene Glycol (Miralax) 17 gm PO BID [facility] Last Admin: 11/04/18 21:27 Dose: 17 gm Sodium Chloride () 5 - 15 ml IV UD PRN PRN Reason: SALINE FLUSH Last Admin: 11/04/18 22:40 Dose: 10 ml Sodium Chloride () 10 - 40 ml IV UD PRN PRN Reason: MULTILUMEN/HICMAN CATH FLUSH Sodium Chloride () 10 ml IV UD PRN PRN Reason: Dialysis Catheter Flush Tramadol HCl (Ultram) 50 mg PO Q12H PRN PRN PRN Reason: PAIN Last Admin: 11/05/18 04:03 Dose: 50 mg Medical Necessity - Tobacco Use Smoking Status: Former smoker Assessment/Plan All Active Problems (Last Reviewed 11/03/18 @ 08:23 by Guillermo Park MD) Septic shock (Acute) Acute renal failure (Acute) Severe dehydration (Acute) Lactic acidosis (Acute) Hypoxia (Acute) Bloating (Acute) Fall (Resolved) Rhabdomyolysis (Resolved) 1. Septic shock secondary to UTI and possible decubitus ulcer/acute renal failure/increased LFT -Transfer to the ICU because he revoked his CC status and wanted to have pressors to support his blood pressure -Gram-negative rods are growing in his blood -Continue with IV Zosyn and hold fluids for now continue with pressor support. -His leukocytosis is improving however his renal function is worsening, he had a dialysis catheter placed and he underwent his first session of dialysis yesterd ay -Appreciate nephrology assistance -AST increased from 64-108, will continue to monitor 2. 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 Thrombocytopenia -Platelet count is 35 today and this is likely secondary to his infection -Continue to monitor -We will discontinue heparin and place him on SCDs 4. A. fib with RVR -This is likely secondary to the levo fed and his chronic conditions -He had a normal echo in April -May be started on amiodarone to control his rhythm, though I do anticipate that once he is off the Levophed his A. fib would probably resolve as well DVT: SCDs Code Visit Inpatient E&M: [id number] Subs Hosp L2
[2018-11-05] MEDS: Hydrocortisone 2.5% Crm 1 APPLIC TOPICAL ×2 (09:14→23:06)
[2018-11-05] MEDS: Nystatin Powder 15gm Bottle 1 APPLIC TOPICAL (09:17)
[2018-11-05] MEDS: Polyethylene Glycol 3350 17 GM PACKET PO ×2 (09:17→23:02)
--- NOTE | 2018-11-05 09:40 | CM.UR ---
Participated in interdisciplinary rounds. Wounds have a resistant bacteria growing. Will consult ID on Wednesday. Had dialysis yesterday and tolerated well. In afib w/rvr and started on amiodarone gtt. [facility] and will anticipate return to them. Salima Guerra RN, CCM.
--- NOTE | 2018-11-05 11:42 | PHA.PHARE_ITS ---
Consult Pharmacy has been consulted to manage selected antiobiotic: Vancomycin Type of Consult: Follow-up Suspected Infection: Other Prior Doses of Antibiotics Received/Current Regimen: Received 1gm iv 11.04.18 @1157. Labs: Sodium 140 mmol/L (136-145) 11/05/18 04:05 Potassium 4.9 mmol/L (3.5-5.1) 11/05/18 04:05 Chloride 104 mmol/L (98-107) 11/05/18 04:05 Carbon Dioxide 24.0 mmol/L (21.0-32.0) 11/05/18 04:05 Anion Gap 12 (5-15) 11/05/18 04:05 BUN 69 mg/dL (7-18) H 11/05/18 04:05 Creatinine 4.19 mg/dL (0.70-1.30) H 11/05/18 04:05 Est GFR (MDRD) Af Amer 19 mL/min (>60) L 11/05/18 04:05 Est GFR (MDRD) Non-Af 15 mL/min (>60) L 11/05/18 04:05 BUN/Creatinine Ratio 16.5 RATIO (10-20) 11/05/18 04:05 Glucose 70 mg/dL (74-106) L 11/05/18 04:05 Random Vancomycin 19.0 ug/mL (0.0-15.0) H 11/05/18 07:40 Microbiology: Microbiology 11/03/18 03:42 Urine Catheter - Louise Urine Culture - Preliminary Staphylococcus aureus GPC Poss Enterococcus sp 11/03/18 10:27 Wound - Sacral Gram Stain - Final 11/03/18 10:27 Wound - Sacral Wound Culture - Preliminary Acinetobacter baumannii Staphylococcus aureus 11/03/18 02:55 Blood Culture (Wb) - Anticubital Right Blood Culture - Preliminary Escherichia coli 11/03/18 03:07 Blood Culture (Wb) - Anticubital Left Blood Culture - Preliminary GNR lactose spray foam installer 11/03/18 07:43 Swab (Method) Nasal Screen MRSA/MSSA - Final Weight used for dosin.8 kg Estimated Creatinine Clearance: ~18ml/min Goal Trough: 15-20 mcg/mL Pharmacy Plan for Drug Dosing: Random level on 11.05.18 @0740 was 19 with goal range of 15-20 mcg/ml. Will give 500mg iv x 1 post dialysis today 6.15.19 based on Pharmacy Protocol. Have ordered another random level for .. in AM. Pharmacy Service will continue to monitor and adjust dosing as required. Follow-Up Labs: Trough Other - vancomycin random level .16 @0600
[2018-11-05] MEDS: guaiFENesin 600 MG Tablet PO ×2 (15:12→23:02)
[2018-11-05] MEDS: Pantoprazole Sodium 20 MG Tablet PO (15:12)
[2018-11-05] MEDS: Ondansetron 4 MG/2 ML Vial IV (15:17)
--- NOTE | 2018-11-05 15:22 | DIALYSIS ---
Hemodialysis x 3 hours completed. Pt tolerated tx well. Fluid balance -500ml. Heparin 1000units/ml to close HD CVC ports to fill volume. Report given to LACI Ware. Pt stable
[2018-11-05] MEDS: Vancomycin IV 500 MG/100 ML BAG 100 MG IV (16:12)
[2018-11-05] MEDS: fentaNYL 100 MCG/2 ML Ampul 50 MCG IV (23:05)
[2018-11-06] VITALS (44 sets, daily range): BP systolic 78–134; BP diastolic 45–83; PULSE 66–102; RESP 9–32; TEMP 35.9–37.2; O2SAT 90–100
[2018-11-06] MEDS: fentaNYL 100 MCG/2 ML Ampul 50 MCG IV ×5 (03:49→23:01)
[2018-11-06 05:09] LABS: Anion Gap 10 (5-15); BUN 53 mg/dL (7-18); BUN/Creat Ratio 14.8 RATIO (10-20); Calcium,Total 7.8 mg/dL (8.5-10.1); Chloride 103 mmol/L (98-107); Creatinine, Serum 3.59 mg/dL (0.70-1.30); EST Glomerular Filtration Rate 18 mL/min (>60); Est Glom Filt Rate - Afr Amer 22 mL/min (>60); Estimated Creatinine Clearance 20.91 ml/min; Glucose 90 mg/dL (74-106); Potassium 4.2 mmol/L (3.5-5.1); Sodium Level 141 mmol/L (136-145)
[2018-11-06 06:15] LABS: Hematocrit 33.4 % (40-54); Hemoglobin 10.6 g/dl (13.0-16.5); Mean Corp Hgb Conc 31.7 g/gl (32-36); Mean Corpuscular Hgb 25.1 pg (27.0-32.0); RBC Distribution Width CV 18.2 % (11.6-14.6); RBC Distribution Width SD 52.6 fl (35.1-43.9); Red Blood Count 4.23 M/mm3 (4.6-6.2); White Blood Count 15.5 K/mm3 (4.4-11.0)
[2018-11-06 06:36] LABS: Differential Indicated MANUAL DIFF; POSITIVE COUNT YES; POSITIVE DIFFERENTIAL NO; POSITIVE MORPHOLOGY YES; Platelet Count 22 K/mm3 (150-450)
[2018-11-06 06:54] LABS: Lymphocyte 10 % (19-41); Metamyelocyte 1 % (0-1); Monocyte 12 % (0-10); Neutrophil-Band 1 % (0-5); Neutrophil-Segmented 76 % (47-70); Platelet Estimate MOD (ADEQ); Red Cell Morphology NORM C+C NORMAL (NORM C&C); Total Cells Counted 100 (MANUAL DIFF); Vacuolated Cells 2+
[2018-11-06 06:55] LABS: Absolute Lymphocyte Count 1.55 X10^3/ul (0.83-4.51); Absolute Neutrophil Count 11.9 X10^3/uL (2.0-7.7); Lymphocyte # 1.55 X10^3/ul (4.0); Neutrophil # 11.94 X10^3/uL (2.7-7.7)
--- NOTE | 2018-11-06 06:55 | PCM.PN.INT ---
Subjective: Patient did okay overnight. Patient still remains on Levophed, but what is able to tolerate 500 cc removal with hemodialysis. Patient had had significant pain overnight, but responded to fentanyl. Patient has had 2 large bowel movements overnight. Patient remains on nasal cannula oxygen. Patient believes his bowel symptoms are improved. No bleeding has been reported. General: - - RASS -1. Appears older than stated age. No conversational dyspnea. HEENT: Atraumatic, PERRLA, EOMI, Normocephalic, - - Slight injection without icterus Oral: Moist Mucosa, No Gingival or Mucosal Lesions/ Ulcerations Neck: Supple, No Nodes, Trachea Midline, JVD, Right, - - Lines are clean, dry and intact. Lungs: No rhonchi, No wheeze, Diminished, Rales Cardiovascular: Regular rate, Regular Rhythm, Normal S1, Normal S2, No murmurs, No rub noted, No Gallop, - - Sinus rhythm noted on telemetry Abdomen: Bowel Sounds Present, Soft, Distended, Obese Extremities: No clubbing, No cyanosis, Edema Skin: - - No significant change compared to previous Musculoskeletal: No Tenderness to Palpation of Joints or Extremities Lymphatic: No Cervical, Supraclavicular, or Inguinal Adenopathy Neurological: Cranial nerves II-XII grossly intact, - - Neuro exam is grossly unchanged compared to previous Psych/Mental Status: Appropriate, Flat Affect Vital Signs Temp Pulse Resp BP Pulse Ox 36.1 C L 86 23 H 101/62 99 11/06/18 04:00 11/06/18 06:00 11/06/18 06:00 11/06/18 06:00 11/06/18 06:00 Oxygen Flow Rate (L/min) 4 Oxygen Delivery Method Nasal Cannula Weight: 74.6 kg Body Mass Index (BMI) 27.1 Intake and Output for Last 24 Hours 11/04/18 11/05/18 11/06/18 23:59 23:59 23:59 Intake Total 829 / 829 678 / 678 820 / 820 Output Total 125 / 125 600 / 600 100 / 100 Balance 704 / 704 78 / 78 720 / 720 Labs (Last 48 Hours) 11/04/18 11/04/18 11/05/18 08:15 17:09 04:05 WBC 13.2 H RBC 4.35 L Hgb 10.9 L Hct 34.2 L MCV 78.6 L MCH 25.1 L MCHC 31.9 L RDW 18.3 H RDW Differential 51.4 H Plt Count 35 L* MPV TNP Immature Gran % (Auto) 1.000 H Neut % (Auto) 84.0 H Lymph % (Auto) 4.8 L [place] % (Auto) 9.9 Eos % (Auto) 0.2 Baso % (Auto) 0.1 Absolute Neuts (auto) 11.1 H Absolute Lymphs (auto) 0.64 L Total Counted Not Reportable Neutrophils % (Manual) Band Neutrophils % Lymphocytes % (Manual) Monocytes % (Manual) Metamyelocytes % Differential Comment SCANNED Diff Path Review May foll Toxic Vacuolation Dohle Bodies 1+ Platelet Estimate MKD DEC RBC Morphology Anisocytosis 1+ Sodium Potassium Chloride Carbon Dioxide Anion Gap BUN Creatinine Estim Creat Clear Calc Est GFR (MDRD) Af Amer Est GFR (MDRD) Non-Af BUN/Creatinine Ratio Glucose Calcium Vancomycin Trough Random Vancomycin 14.0 Hep Bs Antigen Pending Hep Bs Antibody Pending Hep B Core IgM Ab Pending 11/05/18 11/05/18 11/06/18 04:05 07:40 04:30 WBC RBC Hgb Hct MCV MCH MCHC RDW RDW Differential Plt Count MPV Immature Gran % (Auto) Neut % (Auto) Lymph % (Auto) [place] % (Auto) Eos % (Auto) Baso % (Auto) Absolute Neuts (auto) Absolute Lymphs (auto) Total Counted Neutrophils % (Manual) Band Neutrophils % Lymphocytes % (Manual) Monocytes % (Manual) Metamyelocytes % Differential Comment Diff Path Review Toxic Vacuolation Dohle Bodies Platelet Estimate RBC Morphology Anisocytosis Sodium 140 141 Potassium 4.9 4.2 Chloride 104 103 Carbon Dioxide 24.0 28.0 Anion Gap 12 10 BUN 69 H 53 H Creatinine 4.19 H 3.59 H Estim Creat Clear Calc 17.91 20.91 Est GFR (MDRD) Af Amer 19 L 22 L Est GFR (MDRD) Non-Af 15 L 18 L BUN/Creatinine Ratio 16.5 14.8 Glucose 70 L 90 Calcium 7.8 L 7.8 L Vancomycin Trough Random Vancomycin 19.0 H Hep Bs Antigen Hep Bs Antibody Hep B Core IgM Ab 11/06/18 11/06/18 04:30 06:20 WBC 15.5 H RBC 4.23 L Hgb 10.6 L Hct 33.4 L MCV 79.0 L MCH 25.1 L MCHC 31.7 L RDW 18.2 H RDW Differential 52.6 H Plt Count 22 L* MPV Immature Gran % (Auto) Neut % (Auto) Not Reportable Lymph % (Auto) [place] % (Auto) Eos % (Auto) Baso % (Auto) Absolute Neuts (auto) Not Reportable Absolute Lymphs (auto) Total Counted 100 Neutrophils % (Manual) 76 H Band Neutrophils % 1 Lymphocytes % (Manual) 10 L Monocytes % (Manual) 12 H Metamyelocytes % 1 Differential Comment Diff Path Review Toxic Vacuolation 2+ Dohle Bodies Platelet Estimate MOD RBC Morphology NORM C+C Anisocytosis Sodium Potassium Chloride Carbon Dioxide Anion Gap BUN Creatinine Estim Creat Clear Calc Est GFR (MDRD) Af Amer Est GFR (MDRD) Non-Af BUN/Creatinine Ratio Glucose Calcium Vancomycin Trough Pending Random Vancomycin Hep Bs Antigen Hep Bs Antibody Hep B Core IgM Ab Microbiology 11/03/18 03:42 Urine Catheter - Louise Urine Culture - Preliminary Staphylococcus aureus GPC Poss Enterococcus sp 11/03/18 10:27 Wound - Sacral Gram Stain - Final 11/03/18 10:27 Wound - Sacral Wound Culture - Preliminary Acinetobacter baumannii Staphylococcus aureus 11/03/18 02:55 Blood Culture (Wb) - Anticubital Right Blood Culture - Preliminary Escherichia coli 11/03/18 03:07 Blood Culture (Wb) - Anticubital Left Blood Culture - Preliminary 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 Continue pressors as necessary 2. Hemodialysis per nephrology 3. Continue broad-spectrum antibiotics, probable ID consult tomorrow 4. Wound nurse to monitor decubitus ulcers 5. Supplemental oxygen as indicated 6. Transition to DNR Comfort Care arrest with intubation IMPRESSIONS: 1. Septic shock secondary to gram-negative Patient with gram-negative noted in wound and blood. Patient is MRSA swab positive, so vancomycin should be continued until cultures are completed. Wound is also growing Acinetobacter, but this does not appear to be in the blood at this time. Will likely get infectious disease to see patient tomorrow for recommendations. Patient remains on pressor therapy. We will continue to monitor patient closely for signs of ischemic changes of the extremities. 2. Acute kidney injury secondary to #1 Patient with very little urine output at this time, elevated BUN and acidosis. Patient did tolerate hemodialysis yesterday with slight volume removal. Anticipate 3 days of therapy, but defer to nephrology. Patient does have thrombocytopenia at baseline that is likely being exacerbated by hemodialysis. Will transfuse platelets today. 3. Thrombocytopenia This reportedly is chronic. We will continue with monitoring for bleeding complications. Transfuse platelets. 4. Ankylosing spondylitis/paraplegia/neurogenic bladder with chronic indwelling Louise/psoriasis/debility/decubitus ulcers Complicates care, management, recovery and prognosis. Wound nurse to evaluate decubitus ulcers. 5. A. fib with RVR Patient developed A. fib with RVR yesterday. Patient was placed on amiodarone drip and has since converted to normal sinus rhythm. Anticipate continuation of amiodarone with possible transition to p.o. tomorrow. TIME: 33 minutes critical care time spent addressing patient's septic shock, acute kidney injury, review of all data and collaboration with care team (5:40 AM to 6:40 AM) Code Visit [id number]: [id number] Critical care first hour
[2018-11-06 07:05] LABS: Vancomycin, Trough Level 22.3 ug/mL (5.0-15.0)
--- NOTE | 2018-11-06 08:26 | PCM.PN.HOSP ---
Patient Problems: Active and Suspected Problems (Last Reviewed 11/03/18 @ 08:23 by Guillermo Park MD) Septic shock (Acute) Acute renal failure (Acute) Severe dehydration (Acute) Lactic acidosis (Acute) Hypoxia (Acute) Bloating (Acute) Subjective: Had 2 bowel movements overnight and feels little bit better in his abdomen. Still has episodes of pain that improved with a dose of fentanyl. Vitals/I&O's: Vital Signs Temp Pulse Resp BP Pulse Ox 97.0 F L 86 23 H 101/62 97 11/06/18 04:00 11/06/18 06:00 11/06/18 06:00 11/06/18 06:00 11/06/18 07:50 Oxygen Flow Rate (L/min) 4 Oxygen Delivery Method Nasal Cannula Weight: 164 lb 7.437 oz Body Mass Index (BMI) 27.1 Intake and Output for Last 24 Hours 11/04/18 11/05/18 11/06/18 23:59 23:59 23:59 Intake Total 829 / 829 678 / 678 820 / 820 Output Total 125 / 125 600 / 600 100 / 100 Balance 704 / 704 78 / 78 720 / 720 General: Alert, Oriented x3, Cooperative, No apparent distress HEENT: Atraumatic, PERRLA, EOMI, Normocephalic Oral: Moist Mucosa Neck: Supple Lungs: Clear to auscultation, Normal air movement, No rhonchi, No wheeze, Diminished, Rales Cardiovascular: Regular rate, Regular Rhythm, Normal S1, Normal S2, No murmurs Abdomen: Soft, Non Tender, Non-Distended, No Hepato-splenomegaly Extremities: No edema, Capillary Refill Less than 3 Seconds Skin: No rashes, No breakdown Neurological: Neuro grossly intact, Sensory exam intact to light touch and pain Psych/Mental Status: Appropriate, Flat Affect Microbiology Past 72 Hours 11/03/18 03:42 Urine Catheter - Louise Urine Culture - Final Meth. resistant Staph. 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 11/03/18 07:43 Swab (Method) Nasal Screen MRSA/MSSA - Final Laboratory Results 11/05/18 07:40: Random Vancomycin 19.0 H 11/06/18 04:30: Sodium 141, Potassium 4.2, Chloride 103, Carbon Dioxide 28.0, Anion Gap 10, BUN 53 H, Creatinine 3.59 H, Estim Creat Clear Calc 20.91, Est GFR (MDRD) Af Amer 22 L, Est GFR (MDRD) Non-Af 18 L, BUN/Creatinine Ratio 14.8, Glucose 90, Calcium 7.8 L 11/06/18 04:30: WBC 15.5 H, RBC 4.23 L, Hgb 10.6 L, Hct 33.4 L, MCV 79.0 L, MCH 25.1 L, MCHC 31.7 L, RDW 18.2 H, RDW Differential 52.6 H, Plt Count 22 L*, Neut % (Auto) Not Reportable, Absolute Neuts (auto) 11.9 H, Absolute Lymphs (auto) 1.55, Total Counted 100, Neutrophils % (Manual) 76 H, Band Neutrophils % 1, Lymphocytes % (Manual) 10 L, Monocytes % (Manual) 12 H, Metamyelocytes % 1, Diff Path Review May foll, Toxic Vacuolation 2+, Platelet Estimate MOD, RBC Morphology NORM C+C 11/06/18 06:20: Vancomycin Trough 22.3 H 11/06/18 07:30: Blood Type A POSITIVE Current Medications Acetaminophen (Tylenol) 650 mg PO Q6H PRN PRN PRN Reason: Mild pain 1-3/Temp > 100.7 F Last Admin: 11/05/18 02:38 Dose: 650 mg Albuterol Sulfate (Ventolin Aerosols) 2.5 mg INHALATION Q2H PRN PRN PRN Reason: SOB/Wheezing Bisacodyl (Dulcolax) 10 mg RECTAL DAILY PRN PRN PRN Reason: CONSTIPATION Last Admin: 11/04/18 07:07 Dose: 10 mg Dextrose (D50w Syringe) 0 gm IV X1 PRN; Protocol PRN Reason: Hypoglycemia Diphenhydramine HCl (Benadryl) 50 mg PO Q6H PRN PRN Reason: ITCHING Ergocalciferol (Vitamin D) 50,000 unit PO Gupta [facility] Fentanyl Citrate (Sublimaze (100mcg Ampule)) 50 mcg IV Q2H PRN PRN PRN Reason: PAIN Last Admin: 11/06/18 03:49 Dose: 50 mcg Glucagon () 1 mg IM .X1 PRN PRN Reason: Hypoglycemia Guaifenesin (Mucinex) 600 mg PO BID [facility] Last Admin: 11/05/18 23:02 Dose: 600 mg Heparin Sodium (Porcine) () 2,500 units IV UD PRN PRN Reason: HEPARIN FLUSH Hydrocortisone (Hytone) 1 applic TOPICAL BID [facility] Last Admin: 11/05/18 23:06 Dose: 1 applicatio Piperacillin Sod/Tazobactam (Sod 3.375 gm/ Sodium Chloride) 50 mls @ 12.5 mls/hr IV Q12 [facility] Last Admin: 11/05/18 23:05 Dose: 12.5 mls/hr Vancomycin IV Pharmacy to Dose (1 ea/ Sodium Chloride) 500 mls @ 250 mls/hr IV X1 PRN; Protocol PRN Reason: Rx to Dose Sodium Chloride () 250 mls @ 15 mls/hr IV .[id number] PRN PRN Reason: SALINE FLUSH Last Admin: 11/03/18 21:55 Dose: 15 mls/hr Norepinephrine Bitartrate 8 mg (/ Sodium Chloride) 250 mls @ 9.38 mls/hr CONT INF .[id number] [facility] Last Admin: 11/06/18 03:48 Dose: 9.38 mls/hr Amiodarone HCl 360 mg/ (Dextrose) 200 mls @ 16.67 mls/hr CONT INF .Q12H1M [facility] Stop: 11/06/18 08:59 Last Admin: 11/06/18 06:11 Dose: 16.67 mls/hr Magnesium Hydroxide (Milk Of Magnesia) 30 ml PO DAILY PRN PRN PRN Reason: Constipation Nutritional Formula (Lactose Free) (Ensure Enlive) 120 ml PO 4X/DAY [facility] Last Admin: 11/05/18 23:06 Dose: 120 ml Nystatin (Mycostatin Powder) 1 applic TOPICAL DAILY [facility]; Protocol Last Admin: 11/05/18 09:17 Dose: 1 applic Ondansetron HCl (Zofran) 4 mg IV Q8H PRN PRN PRN Reason: NAUSEA/VOMITING Last Admin: 11/05/18 15:17 Dose: 4 mg Pantoprazole Sodium (Protonix) 20 mg PO DAILY DAX Last Admin: 11/05/18 15:12 Dose: 20 mg Polyethylene Glycol (Miralax) 17 gm PO BID DAX Last Admin: 11/05/18 23:02 Dose: 17 gm Sodium Chloride () 5 - 15 ml IV UD PRN PRN Reason: SALINE FLUSH Last Admin: 11/04/18 22:40 Dose: 10 ml Sodium Chloride () 10 - 40 ml IV UD PRN PRN Reason: MULTILUMEN/HICMAN CATH FLUSH Sodium Chloride () 10 ml IV UD PRN PRN Reason: Dialysis Catheter Flush Tramadol HCl (Ultram) 50 mg PO Q12H PRN PRN PRN Reason: PAIN Last Admin: 11/05/18 16:43 Dose: 50 mg Medical Necessity - Tobacco Use Smoking Status: Former smoker Assessment/Plan All Active Problems (Last Reviewed 11/03/18 @ 08:23 by Guillermo Park MD) Septic shock (Acute) Acute renal failure (Acute) Severe dehydration (Acute) Lactic acidosis (Acute) Hypoxia (Acute) Bloating (Acute) Fall (Resolved) Rhabdomyolysis (Resolved) 1. Septic shock secondary to UTI and possible decubitus ulcer/acute renal failure/increased LFT -Transfer to the ICU because he revoked his CC status and wanted to have pressors to support his blood pressure -Gram-negative rods are growing in his blood -Continue with IV Zosyn and hold fluids for now continue with pressor support. -White count today is 15, his cultures are coming back with MRSA, enterococcus, E. coli, Acinetobacter in the wound. Continue with vancomycin and Zosyn for now and will likely need to consult ID in the morning for further recommendations on the Acinetobacter. Continue with wound care -Appreciate nephrology assistance, renal function has improved to 3.59 with dialysis. -AST increased from 64-108, will continue to monitor 2. 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 Thrombocytopenia -Platelet count is 22 today and this is likely secondary to his infection -We will transfuse platelets today -We will discontinue heparin and place him on SCDs 4. A. fib with RVR -This is likely secondary to the levo fed and his chronic conditions -He had a normal echo in April -May be started on amiodarone to control his rhythm, though I do anticipate that once he is off the Levophed his A. fib would probably resolve as well DVT: SCDs Code Visit Inpatient E&M: 08029 Subs Hosp L2
--- NOTE | 2018-11-06 08:29 | PN_ITS ---
Patient Problems: Active and Suspected Problems (Last Reviewed 11/03/18 @ 08:23 by Guillermo Park MD) Septic shock (Acute) Acute renal failure (Acute) Severe dehydration (Acute) Lactic acidosis (Acute) Hypoxia (Acute) Bloating (Acute) Subjective: Had 2 bowel movements overnight and feels little bit better in his abdomen. Still has episodes of pain that improved with a dose of fentanyl. Vitals/I&O's: Vital Signs Temp Pulse Resp BP Pulse Ox 97.0 F L 86 23 H 101/62 97 11/06/18 04:00 11/06/18 06:00 11/06/18 06:00 11/06/18 06:00 11/06/18 07:50 Oxygen Flow Rate (L/min) 4 Oxygen Delivery Method Nasal Cannula Weight: 164 lb 7.437 oz Body Mass Index (BMI) 27.1 Intake and Output for Last 24 Hours 11/04/18 11/05/18 11/06/18 23:59 23:59 23:59 Intake Total 829 / 829 678 / 678 820 / 820 Output Total 125 / 125 600 / 600 100 / 100 Balance 704 / 704 78 / 78 720 / 720 General: Alert, Oriented x3, Cooperative, No apparent distress HEENT: Atraumatic, PERRLA, EOMI, Normocephalic Oral: Moist Mucosa Neck: Supple Lungs: Clear to auscultation, Normal air movement, No rhonchi, No wheeze, Diminished, Rales Cardiovascular: Regular rate, Regular Rhythm, Normal S1, Normal S2, No murmurs Abdomen: Soft, Non Tender, Non-Distended, No Hepato-splenomegaly Extremities: No edema, Capillary Refill Less than 3 Seconds Skin: No rashes, No breakdown Neurological: Neuro grossly intact, Sensory exam intact to light touch and pain Psych/Mental Status: Appropriate, Flat Affect Microbiology Past 72 Hours 11/03/18 03:42 Urine Catheter - Louise Urine Culture - Final Meth. resistant Staph. 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 11/03/18 07:43 Swab (Method) Nasal Screen MRSA/MSSA - Final Laboratory Results 11/05/18 07:40: Random Vancomycin 19.0 H 11/06/18 04:30: Sodium 141, Potassium 4.2, Chloride 103, Carbon Dioxide 28.0, Anion Gap 10, BUN 53 H, Creatinine 3.59 H, Estim Creat Clear Calc 20.91, Est GFR (MDRD) Af Amer 22 L, Est GFR (MDRD) Non-Af 18 L, BUN/Creatinine Ratio 14.8, Glucose 90, Calcium 7.8 L 11/06/18 04:30: WBC 15.5 H, RBC 4.23 L, Hgb 10.6 L, Hct 33.4 L, MCV 79.0 L, MCH 25.1 L, MCHC 31.7 L, RDW 18.2 H, RDW Differential 52.6 H, Plt Count 22 L*, Neut % (Auto) Not Reportable, Absolute Neuts (auto) 11.9 H, Absolute Lymphs (auto) 1.55, Total Counted 100, Neutrophils % (Manual) 76 H, Band Neutrophils % 1, Lymphocytes % (Manual) 10 L, Monocytes % (Manual) 12 H, Metamyelocytes % 1, Diff Path Review May foll, Toxic Vacuolation 2+, Platelet Estimate MOD, RBC Morphology NORM C+C 11/06/18 06:20: Vancomycin Trough 22.3 H 11/06/18 07:30: Blood Type A POSITIVE Current Medications Acetaminophen (Tylenol) 650 mg PO Q6H PRN PRN PRN Reason: Mild pain 1-3/Temp > 100.7 F Last Admin: 11/05/18 02:38 Dose: 650 mg Albuterol Sulfate (Ventolin Aerosols) 2.5 mg INHALATION Q2H PRN PRN PRN Reason: SOB/Wheezing Bisacodyl (Dulcolax) 10 mg RECTAL DAILY PRN PRN PRN Reason: CONSTIPATION Last Admin: 11/04/18 07:07 Dose: 10 mg Dextrose (D50w Syringe) 0 gm IV X1 PRN; Protocol PRN Reason: Hypoglycemia Diphenhydramine HCl (Benadryl) 50 mg PO Q6H PRN PRN Reason: ITCHING Ergocalciferol (Vitamin D) 50,000 unit PO Gupta [facility] Fentanyl Citrate (Sublimaze (100mcg Ampule)) 50 mcg IV Q2H PRN PRN PRN Reason: PAIN Last Admin: 11/06/18 03:49 Dose: 50 mcg Glucagon () 1 mg IM .X1 PRN PRN Reason: Hypoglycemia Guaifenesin (Mucinex) 600 mg PO BID [facility] Last Admin: 11/05/18 23:02 Dose: 600 mg Heparin Sodium (Porcine) () 2,500 units IV UD PRN PRN Reason: HEPARIN FLUSH Hydrocortisone (Hytone) 1 applic TOPICAL BID [facility] Last Admin: 11/05/18 23:06 Dose: 1 applicatio Piperacillin Sod/Tazobactam (Sod 3.375 gm/ Sodium Chloride) 50 mls @ 12.5 mls/hr IV Q12 [facility] Last Admin: 11/05/18 23:05 Dose: 12.5 mls/hr Vancomycin IV Pharmacy to Dose (1 ea/ Sodium Chloride) 500 mls @ 250 mls/hr IV X1 PRN; Protocol PRN Reason: Rx to Dose Sodium Chloride () 250 mls @ 15 mls/hr IV .[id number] PRN PRN Reason: SALINE FLUSH Last Admin: 11/03/18 21:55 Dose: 15 mls/hr Norepinephrine Bitartrate 8 mg (/ Sodium Chloride) 250 mls @ 9.38 mls/hr CONT INF .[id number] [facility] Last Admin: 11/06/18 03:48 Dose: 9.38 mls/hr Amiodarone HCl 360 mg/ (Dextrose) 200 mls @ 16.67 mls/hr CONT INF .Q12H1M [facility] Stop: 11/06/18 08:59 Last Admin: 11/06/18 06:11 Dose: 16.67 mls/hr Magnesium Hydroxide (Milk Of Magnesia) 30 ml PO DAILY PRN PRN PRN Reason: Constipation Nutritional Formula (Lactose Free) (Ensure Enlive) 120 ml PO 4X/DAY [facility] Last Admin: 11/05/18 23:06 Dose: 120 ml Nystatin (Mycostatin Powder) 1 applic TOPICAL DAILY [facility]; Protocol Last Admin: 11/05/18 09:17 Dose: 1 applic Ondansetron HCl (Zofran) 4 mg IV Q8H PRN PRN PRN Reason: NAUSEA/VOMITING Last Admin: 11/05/18 15:17 Dose: 4 mg Pantoprazole Sodium (Protonix) 20 mg PO DAILY DAX Last Admin: 11/05/18 15:12 Dose: 20 mg Polyethylene Glycol (Miralax) 17 gm PO BID DAX Last Admin: 11/05/18 23:02 Dose: 17 gm Sodium Chloride () 5 - 15 ml IV UD PRN PRN Reason: SALINE FLUSH Last Admin: 11/04/18 22:40 Dose: 10 ml Sodium Chloride () 10 - 40 ml IV UD PRN PRN Reason: MULTILUMEN/HICMAN CATH FLUSH Sodium Chloride () 10 ml IV UD PRN PRN Reason: Dialysis Catheter Flush Tramadol HCl (Ultram) 50 mg PO Q12H PRN PRN PRN Reason: PAIN Last Admin: 11/05/18 16:43 Dose: 50 mg Medical Necessity - Tobacco Use Smoking Status: Former smoker Assessment/Plan All Active Problems (Last Reviewed 11/03/18 @ 08:23 by Guillermo Park MD) Septic shock (Acute) Acute renal failure (Acute) Severe dehydration (Acute) Lactic acidosis (Acute) Hypoxia (Acute) Bloating (Acute) Fall (Resolved) Rhabdomyolysis (Resolved) 1. Septic shock secondary to UTI and possible decubitus ulcer/acute renal failure/increased LFT -Transfer to the ICU because he revoked his CC status and wanted to have pressors to support his blood pressure -Gram-negative rods are growing in his blood -Continue with IV Zosyn and hold fluids for now continue with pressor support. -White count today is 15, his cultures are coming back with MRSA, enterococcus, E. coli, Acinetobacter in the wound. Continue with vancomycin and Zosyn for now and will likely need to consult ID in the morning for further recommendations on the Acinetobacter. Continue with wound care -Appreciate nephrology assistance, renal function has improved to 3.59 with dialysis. -AST increased from 64-108, will continue to monitor 2. 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 Thrombocytopenia -Platelet count is 22 today and this is likely secondary to his infection -We will transfuse platelets today -We will discontinue heparin and place him on SCDs 4. A. fib with RVR -This is likely secondary to the levo fed and his chronic conditions -He had a normal echo in April -May be started on amiodarone to control his rhythm, though I do anticipate that once he is off the Levophed his A. fib would probably resolve as well DVT: SCDs Code Visit Inpatient E&M: 83947 Subs Hosp L2
[2018-11-06] MEDS: guaiFENesin 600 MG Tablet PO ×2 (10:04→21:42)
[2018-11-06] MEDS: Pantoprazole Sodium 20 MG Tablet PO (10:04)
[2018-11-06] MEDS: Hydrocortisone 2.5% Crm 1 APPLIC TOPICAL ×2 (10:04→21:42)
[2018-11-06] MEDS: Nystatin Powder 15gm Bottle 1 APPLIC TOPICAL (10:05)
--- NOTE | 2018-11-06 12:41 | PHA.PHARE_ITS ---
Consult Pharmacy has been consulted to manage selected antiobiotic: Vancomycin Type of Consult: Follow-up Suspected Infection: Other Prior Doses of Antibiotics Received/Current Regimen: Patient's last dose was 500mg iv x 1 on 11.05.18 @1612 Labs: Sodium 141 mmol/L (136-145) 11/06/18 04:30 Potassium 4.2 mmol/L (3.5-5.1) 11/06/18 04:30 Chloride 103 mmol/L (98-107) 11/06/18 04:30 Carbon Dioxide 28.0 mmol/L (21.0-32.0) 11/06/18 04:30 Anion Gap 10 (5-15) 11/06/18 04:30 BUN 53 mg/dL (7-18) H 11/06/18 04:30 Creatinine 3.59 mg/dL (0.70-1.30) H 11/06/18 04:30 Est GFR (MDRD) Af Amer 22 mL/min (>60) L 11/06/18 04:30 Est GFR (MDRD) Non-Af 18 mL/min (>60) L 11/06/18 04:30 BUN/Creatinine Ratio 14.8 RATIO (10-20) 11/06/18 04:30 Glucose 90 mg/dL (74-106) 11/06/18 04:30 Vancomycin Trough 22.3 ug/mL (5.0-15.0) H 11/06/18 06:20 Random Vancomycin 19.0 ug/mL (0.0-15.0) H 11/05/18 07:40 Microbiology: Microbiology 11/03/18 10:27 Wound - Sacral Gram Stain - Final 11/03/18 10:27 Wound - Sacral Wound Culture - Preliminary Acinetobacter baumannii Staphylococcus aureus 11/03/18 03:42 Urine Catheter - Louise Urine Culture - Final Meth. resistant Staph. aureus Enterococcus faecalis 11/03/18 02:55 Blood Culture (Wb) - Anticubital Right Blood Culture - Preliminary Escherichia coli 11/03/18 03:07 Blood Culture (Wb) - Anticubital Left Blood Culture - Preliminary GNR lactose fish technologist 11/03/18 07:43 Swab (Method) Nasal Screen MRSA/MSSA - Final Weight used for dosin kg Estimated Creatinine Clearance: ~21 ml/min Goal Trough: 15-20 mcg/mL Pharmacy Plan for Drug Dosing: Random vancomycin level on 11.06.18 @0620 was 22.3 (goal 15-20 mcg/ml). Will hold any further dosing 11.06.18 and get another random level on 11.07.18 @0600. Further dosing will be done then after vancomycin level review. Pharmacy Service will continue to monitor and adjust dosing as required. Follow-Up Labs: Trough Other - vanco random 11.07.18 @0600
--- NOTE | 2018-11-06 13:59 | PCM.PROGNOTE ---
Patient Problems: Active and Suspected Problems (Last Reviewed 11/03/18 @ 08:23 by Guillermo Park MD) Septic shock (Acute) Acute renal failure (Acute) Severe dehydration (Acute) Lactic acidosis (Acute) Hypoxia (Acute) Bloating (Acute) Subjective: moaning cannot provide ros confused - Physical Exam General: Alert, Confused HEENT: Atraumatic, Normocephalic Oral: Moist Mucosa Neck: Negative Carotid Bruits, Trachea Midline Lungs: Clear to auscultation, No rhonchi Cardiovascular: Regular rate, Normal S1, Normal S2 Abdomen: Bowel Sounds Present, Soft Extremities: Edema Vital Signs Temp Pulse Resp BP Pulse Ox 97.5 F L 85 19 H 108/65 94 11/06/18 12:00 11/06/18 12:00 11/06/18 12:00 11/06/18 12:00 11/06/18 12:00 Oxygen Flow Rate (L/min) 2 Oxygen Delivery Method Nasal Cannula Weight: 74.6 kg Body Mass Index (BMI) 27.1 Intake and Output for Last 24 Hours 11/04/18 11/05/18 11/06/18 23:59 23:59 23:59 Intake Total 829 / 829 678 / 678 820 / 820 Output Total 125 / 125 600 / 600 100 / 100 Balance 704 / 704 78 / 78 720 / 720 Microbiology Past 72 Hours 11/03/18 10:27 Gram Stain - Final Wound - Sacral Wound Culture - Preliminary Acinetobacter baumannii Staphylococcus aureus 11/03/18 03:42 Urine Culture - Final Urine Catheter - Louise Meth. resistant Staph. aureus Enterococcus faecalis 11/03/18 02:55 Blood Culture - Preliminary Blood Culture (Wb) - Anticubital Right Escherichia coli 11/03/18 03:07 Blood Culture - Preliminary Blood Culture (Wb) - Anticubital Left GNR lactose transaction manager 11/03/18 07:43 Nasal Screen MRSA/MSSA - Final Swab (Method) Laboratory Tests Past 24 Hrs 11/06/18 11/06/18 11/06/18 04:30 04:30 06:20 WBC 15.5 H RBC 4.23 L Hgb 10.6 L Hct 33.4 L MCV 79.0 L MCH 25.1 L MCHC 31.7 L RDW 18.2 H RDW Differential 52.6 H Plt Count 22 L* Neut % (Auto) Not Reportable Absolute Neuts (auto) 11.9 H Absolute Lymphs (auto) 1.55 Total Counted 100 Neutrophils % (Manual) 76 H Band Neutrophils % 1 Lymphocytes % (Manual) 10 L Monocytes % (Manual) 12 H Metamyelocytes % 1 Diff Path Review May foll Toxic Vacuolation 2+ Platelet Estimate MOD RBC Morphology NORM C+C Sodium 141 Potassium 4.2 Chloride 103 Carbon Dioxide 28.0 Anion Gap 10 BUN 53 H Creatinine 3.59 H Estim Creat Clear Calc 20.91 Est GFR (MDRD) Af Amer 22 L Est GFR (MDRD) Non-Af 18 L BUN/Creatinine Ratio 14.8 Glucose 90 Calcium 7.8 L Vancomycin Trough 22.3 H Blood Type 11/06/18 07:30 WBC RBC Hgb Hct MCV MCH MCHC RDW RDW Differential Plt Count Neut % (Auto) Absolute Neuts (auto) Absolute Lymphs (auto) Total Counted Neutrophils % (Manual) Band Neutrophils % Lymphocytes % (Manual) Monocytes % (Manual) Metamyelocytes % Diff Path Review Toxic Vacuolation Platelet Estimate RBC Morphology Sodium Potassium Chloride Carbon Dioxide Anion Gap BUN Creatinine Estim Creat Clear Calc Est GFR (MDRD) Af Amer Est GFR (MDRD) Non-Af BUN/Creatinine Ratio Glucose Calcium Vancomycin Trough Blood Type A POSITIVE Medical Necessity - Tobacco Use Smoking Status: Former smoker Assessment/Plan All Active Problems (Last Reviewed 11/03/18 @ 08:23 by Guillermo Park MD) Septic shock (Acute) Acute renal failure (Acute) Severe dehydration (Acute) Lactic acidosis (Acute) Hypoxia (Acute) Bloating (Acute) Fall (Resolved) Rhabdomyolysis (Resolved) BRANDO ATN last HD yesterday initiated 2 days ago on HD RIJ HD cath reevaluate HD needs tomorrow Edema LE UF as tolerated with HD Hyperphosphatemia - HD very poor intake po hold on binders Shock septic resolved levophed off today Thrombocytopenia per primary E Colli bacteremia sacral wound acinetobacter and staph aureus Urine cx mrsa and E faecalis abx per primary ID consult in am for abx mgmt Neurogenic bladder Louise in Paraplegia/
[2018-11-06] MEDS: 0.9% NaCl IVPB Med Flush (250 mL) 15 ML IV (14:00)
[2018-11-06 14:06] LABS: HEPATITIS B SURFACE AG Negative (Negative)
[2018-11-07] VITALS (26 sets, daily range): BP systolic 74–145; BP diastolic 36–81; PULSE 86–166; RESP 16–34; TEMP 36–36.6; O2SAT 89–100
[2018-11-07] MEDS: fentaNYL 100 MCG/2 ML Ampul 50 MCG IV ×3 (03:01→15:31)
[2018-11-07 04:42] LABS: Anion Gap 13 (5-15); BUN 72 mg/dL (7-18); BUN/Creat Ratio 16.1 RATIO (10-20); Calcium,Total 8.4 mg/dL (8.5-10.1); Chloride 103 mmol/L (98-107); Creatinine, Serum 4.48 mg/dL (0.70-1.30); EST Glomerular Filtration Rate 14 mL/min (>60); Est Glom Filt Rate - Afr Amer 17 mL/min (>60); Estimated Creatinine Clearance 16.75 ml/min; Glucose 79 mg/dL (74-106); Potassium 4.1 mmol/L (3.5-5.1); Sodium Level 143 mmol/L (136-145)
[2018-11-07 04:44] LABS: Absolute Neutrophil Count 11.2 X10^3/uL (2.0-7.7); Basophil# 0.01 X10^3/uL; Basophil% 0.1 % (0-1); Eosinophil# 0.04 X10^3/uL; Eosinophils% 0.3 % (0-5); Lymphocyte % 4.6 % (19-41); Mean Corp Hgb Conc 32.3 g/gl (32-36); Mean Corpuscular Hgb 25.2 pg (27.0-32.0); Mean Corpuscular Volume 78.1 fL (80-94); Monocyte# 0.97 X10^3/uL; Monocyte% 7.5 % (0-10); Neutrophil # 11.22 X10^3/uL (2.7-7.7); Neutrophil % 86.3 % (47-70); RBC Distribution Width CV 18.2 % (11.6-14.6); RBC Distribution Width SD 52.5 fl (35.1-43.9); Red Blood Count 3.97 M/mm3 (4.6-6.2)
[2018-11-07 04:58] LABS: Differential Indicated SCAN CRITERIA MET; POSITIVE COUNT YES; POSITIVE DIFFERENTIAL YES; POSITIVE MORPHOLOGY YES
[2018-11-07 04:59] LABS: Platelet Count 24 K/mm3 (150-450)
[2018-11-07 05:13] LABS: Differential Comment SCANNED; Platelet Estimate MKD DEC (ADEQ)
--- NOTE | 2018-11-07 06:31 | PN_ITS ---
Subjective: The patient was seen and examined at the bedside this morning. Events from the last 24 hours have been reviewed. The patient is currently afebrile, hemodynamically stable and maintaining appropriate oxygen saturations on 2 L/min via nasal cannula. The patient has been off of Levophed now for greater than 24 hours. Thrombocytopenia is stable at 24,000. The patient was last dialyzed on November 05. He is currently documented to be overall net +7.1 L for the admission. This morning, the patient does report feeling more short of breath than pre vious. Per nursing account, the patient has been intermittently taking off his nasal cannula supplemental oxygen. Objective: The patient's most recent lab work, culture data and imaging studies have all been personally reviewed. Blood culture dated November 03 was positive for E. coli. Urine culture dated November 03 was positive for MRSA and Enterococcus faecalis. Sacral wound culture was positive for Acinetobacter and staph aureus. General: Alert, Cooperative, - - Appears uncomfortable in bed HEENT: Atraumatic, PERRLA, Normocephalic Oral: No Gingival or Mucosal Lesions/ Ulcerations Neck: Supple, No Nodes, Trachea Midline Lungs: No rhonchi, No wheeze, Diminished, Rales Cardiovascular: Normal S1, Normal S2, No murmurs, Irregular Rate, Tachycardic Abdomen: Bowel Sounds Present, Soft, Non Tender, Distended Extremities: No clubbing, No cyanosis, Edema Skin: Ulcer/ Wound Musculoskeletal: No Muscle Wasting Lymphatic: No Cervical, Supraclavicular, or Inguinal Adenopathy Neurological: Neuro grossly intact Psych/Mental Status: Flat Affect Vital Signs Temp Pulse Resp BP Pulse Ox 96.9 F L 93 34 H 119/64 97 11/07/18 04:00 11/07/18 06:00 11/07/18 06:00 11/07/18 06:00 11/07/18 06:00 Oxygen Flow Rate (L/min) 2 Oxygen Delivery Method Nasal Cannula Weight: 187 lb 13.341 oz Body Mass Index (BMI) 27.1 Intake and Output for Last 24 Hours 11/05/18 11/06/18 11/07/18 23:59 23:59 23:59 Intake Total 678 / 678 1805.7 / 1805.7 528 / 528 Output Total 600 / 600 130 / 130 30 / 30 Balance 78 / 78 1675.7 / 1675.7 498 / 498 Labs (Last 48 Hours) 11/05/18 11/06/18 11/06/18 07:40 04:30 04:30 WBC 15.5 H RBC 4.23 L Hgb 10.6 L Hct 33.4 L MCV 79.0 L MCH 25.1 L MCHC 31.7 L RDW 18.2 H RDW Differential 52.6 H Plt Count 22 L* Immature Gran % (Auto) Neut % (Auto) Not Reportable Lymph % (Auto) [place] % (Auto) Eos % (Auto) Baso % (Auto) Absolute Neuts (auto) 11.9 H Absolute Lymphs (auto) 1.55 Total Counted 100 Neutrophils % (Manual) 76 H Band Neutrophils % 1 Lymphocytes % (Manual) 10 L Monocytes % (Manual) 12 H Metamyelocytes % 1 Differential Comment Diff Path Review May foll Toxic Vacuolation 2+ Platelet Estimate MOD RBC Morphology NORM C+C Sodium 141 Potassium 4.2 Chloride 103 Carbon Dioxide 28.0 Anion Gap 10 BUN 53 H Creatinine 3.59 H Estim Creat Clear Calc 20.91 Est GFR (MDRD) Af Amer 22 L Est GFR (MDRD) Non-Af 18 L BUN/Creatinine Ratio 14.8 Glucose 90 Calcium 7.8 L Vancomycin Trough Random Vancomycin 19.0 H Blood Type 11/06/18 11/06/18 11/07/18 06:20 07:30 04:10 WBC RBC Hgb Hct MCV MCH MCHC RDW RDW Differential Plt Count Immature Gran % (Auto) Neut % (Auto) Lymph % (Auto) [place] % (Auto) Eos % (Auto) Baso % (Auto) Absolute Neuts (auto) Absolute Lymphs (auto) Total Counted Neutrophils % (Manual) Band Neutrophils % Lymphocytes % (Manual) Monocytes % (Manual) Metamyelocytes % Differential Comment Diff Path Review Toxic Vacuolation Platelet Estimate RBC Morphology Sodium 143 Potassium 4.1 Chloride 103 Carbon Dioxide 27.0 Anion Gap 13 BUN 72 H Creatinine 4.48 H Estim Creat Clear Calc 16.75 Est GFR (MDRD) Af Amer 17 L Est GFR (MDRD) Non-Af 14 L BUN/Creatinine Ratio 16.1 Glucose 79 Calcium 8.4 L Vancomycin Trough 22.3 H Random Vancomycin Blood Type A POSITIVE 11/07/18 11/07/18 04:10 04:10 WBC 13.0 H RBC 3.97 L Hgb 10.0 L Hct 31.0 L MCV 78.1 L MCH 25.2 L MCHC 32.3 RDW 18.2 H RDW Differential 52.5 H Plt Count 24 L* Immature Gran % (Auto) 1.200 H Neut % (Auto) 86.3 H Lymph % (Auto) 4.6 L [place] % (Auto) 7.5 Eos % (Auto) 0.3 Baso % (Auto) 0.1 Absolute Neuts (auto) 11.2 H Absolute Lymphs (auto) 0.60 L Total Counted Not Reportable Neutrophils % (Manual) Band Neutrophils % Lymphocytes % (Manual) Monocytes % (Manual) Metamyelocytes % Differential Comment SCANNED Diff Path Review May foll Toxic Vacuolation Platelet Estimate MKD DEC RBC Morphology Sodium Potassium Chloride Carbon Dioxide Anion Gap BUN Creatinine Estim Creat Clear Calc Est GFR (MDRD) Af Amer Est GFR (MDRD) Non-Af BUN/Creatinine Ratio Glucose Calcium Vancomycin Trough Random Vancomycin 22.0 H Blood Type Microbiology 11/03/18 10:27 Wound - Sacral Gram Stain - Final 11/03/18 10:27 Wound - Sacral Wound Culture - Preliminary Acinetobacter baumannii Staphylococcus aureus 11/03/18 03:42 Urine Catheter - Louise Urine Culture - Final Meth. resistant Staph. aureus Enterococcus faecalis 11/03/18 02:55 Blood Culture (Wb) - Anticubital Right Blood Culture - Pr eliminary Escherichia coli Clinical Impression(s) from Imaging Studies Chest X-Ray 11/03/18 03:03 IMPRESSION: Minimal fluid tracking in the right minor fissure. Interval posterior thoracic spinal fixation. No focal lung consolidative changes. Electronically Signed: Azar Marino, at 3:41 EDT Tel , Service support , Abdomen/Pelvis CT 11/03/18 04:09 IMPRESSION: Negative unenhanced CT of the abdomen and pelvis for acute abnormality Nonobstructive right renal pelvic calculus. Moderate retained stool within the colon and rectum. Correlate for constipation. Cholelithiasis. Louise catheter drainage of the urinary bladder. Electronically Signed: Azar Marino, at 5:14 EDT Tel , Service support , KUB X-Ray 11/03/18 10:19 IMPRESSION: Nonspecific bowel gas pattern. Electronically Signed: Venkata Rigoberto, at 14:59 EDT , Service support , Lumbar Spine MRI 11/03/18 10:19 IMPRESSION: Again seen is ankylosing spondylitis as described above, unchanged since prior exams. No focal collection or abscess. Stable chronic findings are described above. No significant degenerative disease. Electronically Signed: Kevyn Solis, at 13:38 EDT Tel , Service support , Chest X-Ray 11/04/18 14:12 IMPRESSION: The tip of the right dialysis catheter is at the junction of the superior vena cava and right atrium. Progressive right upper lobe infiltrate with increased markings at the left lung base. Electronically Signed: Venkata Franklin, at 15:08 EDT , Service support , Medical Necessity - Tobacco Use Smoking Status: Former smoker Assessment/Plan All Active Problems (Last Reviewed 11/03/18 @ 08:23 by Guillermo Park MD) Septic shock (Acute) Acute renal failure (Acute) Severe dehydration (Acute) Lactic acidosis (Acute) Hypoxia (Acute) Bloating (Acute) Fall (Resolved) Rhabdomyolysis (Resolved) RECOMMENDATIONS: 1. Continue broad-spectrum antimicrobial coverage, pending evaluation by infectious diseases. 2. Continue to monitor platelet count daily. No indication for transfusion at this time. 3. Check troponin level. 4. Continue hemodialysis per nephrology recommendations. 5. Transition to p.o. amiodarone 6. Wean supplemental oxygen as tolerated. Encourage incentive spirometer use. IMPRESSIONS: 1. Polymicrobial septic shock The patient was initially noted to have evidence of gram-negative bacteremia with wound cultures also positive for Acinetobacter and MRSA. He is currently on appropriate broad-spectrum antimicrobials. Infectious diseases consultation is pending. The patient has been off of vasopressor support now for greater than 24 hours. Continue local wound care. 2. Acute kidney injury secondary to #1 The patient's acute kidney injury was felt to be secondary to ATN from septic shock. Nephrology is currently following. Continue hemodialysis support per their recommendations. 3. Thrombocytopenia This reportedly is chronic. We will continue with monitoring for bleeding complications. There is no evidence of overt signs of blood loss. There is no indication for transfusion of platelets at this time. 4. Atrial fibrillation with rapid ventricular rate The patient did develop atrial fibrillation during his hospitalization. He did respond favorably to the use of amiodarone. Given that the patient's IV amiodarone is set to be completed today, we will plan to transition him to PO route. 5. Ankylosing spondylitis/paraplegia/neurogenic bladder with chronic indwelling Louise/psoriasis/debility/decubitus ulcers Complicates care, management, recovery and prognosis. Continue local wound care. This note was generated with [employer] dictation software. It may contain incorrect words, spelling, and punctuation that were not noted in checking the note before signing. Code Visit Inpatient E&M: 59604 [facility] H[facility] L3
[2018-11-07] MEDS: traMADol 50 MG Tablet PO (08:08)
--- NOTE | 2018-11-07 08:34 | PCM.PN.HOSP ---
Patient Problems: Active and Suspected Problems (Last Reviewed 11/03/18 @ 08:23 by Guillermo Park MD) Septic shock (Acute) Acute renal failure (Acute) Severe dehydration (Acute) Lactic acidosis (Acute) Hypoxia (Acute) Bloating (Acute) Subjective: No high-grade fever for more than 48 hours. Heart rate is controlled, regular. Abdomen is distended. Bowel sounds sluggish. Patient has fecal management system. 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, left heel pressure ulcer Vitals/I&O's: Vital Signs Temp Pulse Resp BP Pulse Ox 96.9 F L 88 23 H 118/67 98 11/07/18 04:00 11/07/18 07:00 11/07/18 07:00 11/07/18 07:00 11/07/18 07:37 Oxygen Flow Rate (L/min) 2 Oxygen Delivery Method Nasal Cannula Weight: 187 lb 13.341 oz Body Mass Index (BMI) 27.1 Intake and Output for Last 24 Hours 11/05/18 11/06/18 11/07/18 23:59 23:59 23:59 Intake Total 678 / 678 1805.7 / 1805.7 528 / 528 Output Total 600 / 600 130 / 130 30 / 30 Balance 78 / 78 1675.7 / 1675.7 498 / 498 General: Alert, Oriented x3, Cooperative HEENT: Atraumatic, PERRLA, EOMI, Normocephalic Neck: Supple, No JVD, - - Left IJ central venous catheter triple lumen right IJ hemodialysis catheter Lungs: Diminished, - Cardiovascular: Regular rate - Air entry diminished., Regular Rhythm, Normal S1, Normal S2, No murmurs Abdomen: Bowel Sounds Present, Soft, Non Tender, Hypoactive Bowel Sounds, Distended Extremities: Capillary Refill Less than 3 Seconds, Edema Skin: Ulcer/ Wound - Stage IV pressure ulcer on sacrum, unstageable right lateral malleolus stage III right heel, left heel Musculoskeletal: Arthritic Changes, Muscle Wasting Neurological: Cranial nerves II-XII grossly intact, - - Paraplegia. Chronic protein and fecal incontinence. Microbiology Past 72 Hours 11/03/18 10:27 Wound - Sacral Gram Stain - Final 11/03/18 10:27 Wound - Sacral Wound Culture - Final Acinetobacter baumannii Meth. resistant Staph. aureus 11/03/18 03:42 Urine Catheter - Louise Urine Culture - Final Meth. resistant Staph. aureus Enterococcus faecalis 11/03/18 02:55 Blood Culture (Wb) - Anticubital Right Blood Culture - Preliminary Escherichia coli 11/03/18 03:07 Blood Culture (Wb) - Anticubital Left Blood Culture - Preliminary GNR lactose fruit rancher 11/03/18 07:43 Swab (Method) Nasal Screen MRSA/MSSA - Final Laboratory Results 11/07/18 04:10: Sodium 143, Potassium 4.1, Chloride 103, Carbon Dioxide 27.0, Anion Gap 13, BUN 72 H, Creatinine 4.48 H, Estim Creat Clear Calc 16.75, Est GFR (MDRD) Af Amer 17 L, Est GFR (MDRD) Non-Af 14 L, BUN/Creatinine Ratio 16.1, Glucose 79, Calcium 8.4 L 11/07/18 04:10: WBC 13.0 H, RBC 3.97 L, Hgb 10.0 L, Hct 31.0 L, MCV 78.1 L, MCH 25.2 L, MCHC 32.3, RDW 18.2 H, RDW Differential 52.5 H, Plt Count 24 L*, Immature Gran % (Auto) 1.200 H, Neut % (Auto) 86.3 H, Lymph % (Auto) 4.6 L, [place] % (Auto) 7.5, Eos % (Auto) 0.3, Baso % (Auto) 0.1, Absolute Neuts (auto) 11.2 H, Absolute Lymphs (auto) 0.60 L, Total Counted Not Reportable, Differential Comment SCANNED, Diff Path Review September sarahy Platelet Estimate MKD 11/07/18 04:10: Random Vancomycin 22.0 H Current Medications Acetaminophen (Tylenol) 650 mg PO Q6H PRN PRN PRN Reason: Mild pain 1-3/Temp > 100.7 F Last Admin: 11/05/18 02:38 Dose: 650 mg Albuterol Sulfate (Ventolin Aerosols) 2.5 mg INHALATION Q2H PRN PRN PRN Reason: SOB/Wheezing Amiodarone HCl (Cordarone) 200 mg PO DAILY [facility] Bisacodyl (Dulcolax) 10 mg RECTAL DAILY PRN PRN PRN Reason: CONSTIPATION Last Admin: 11/04/18 07:07 Dose: 10 mg Calamine/Phenol (Calmoseptine Ointment) 1 applic TOPICAL TID PRN; Protocol PRN Reason: TOPICAL IRRITATIONS Chlorhexidine Gluconate () 1 each TOPICAL DAILY [facility] Dextrose (D50w Syringe) 0 gm IV X1 PRN; Protocol PRN Reason: Hypoglycemia Diphenhydramine HCl (Benadryl) 50 mg PO Q6H PRN PRN Reason: ITCHING Ergocalciferol (Vitamin D) 50,000 unit PO Gupta [facility] Last Admin: 11/06/18 10:04 Dose: 50,000 unit Fentanyl Citrate (Sublimaze (100mcg Ampule)) 50 mcg IV Q2H PRN PRN PRN Reason: PAIN Last Admin: 11/07/18 03:01 Dose: 50 mcg Glucagon () 1 mg IM .X1 PRN PRN Reason: Hypoglycemia Guaifenesin (Mucinex) 600 mg PO BID [facility] Last Admin: 11/06/18 21:42 Dose: 600 mg Heparin Sodium (Porcine) () 2,500 units IV UD PRN PRN Reason: HEPARIN FLUSH Hydrocortisone (Hytone) 1 applic TOPICAL BID [facility] Last Admin: 11/06/18 21:42 Dose: 1 applicatio Piperacillin Sod/Tazobactam (Sod 3.375 gm/ Sodium Chloride) 50 mls @ 12.5 mls/hr IV Q12 [facility] Last Admin: 11/06/18 21:42 Dose: 12.5 mls/hr Vancomycin IV Pharmacy to Dose (1 ea/ Sodium Chloride) 500 mls @ 250 mls/hr IV X1 PRN; Protocol PRN Reason: Rx to Dose Sodium Chloride () 250 mls @ 15 mls/hr IV .[id number] PRN PRN Reason: SALINE FLUSH Last Admin: 11/06/18 14:00 Dose: 15 mls/hr Norepinephrine Bitartrate 8 mg (/ Sodium Chloride) 250 mls @ 9.38 mls/hr CONT INF .[id number] [facility] Last Admin: 11/06/18 13:39 Dose: Not Given Magnesium Hydroxide (Milk Of Magnesia) 30 ml PO DAILY PRN PRN PRN Reason: Constipation Nystatin (Mycostatin Powder) 1 applic TOPICAL DAILY DAX; Protocol Last Admin: 11/06/18 10:05 Dose: 1 applic Ondansetron HCl (Zofran) 4 mg IV Q8H PRN PRN PRN Reason: NAUSEA/VOMITING Last Admin: 11/05/18 15:17 Dose: 4 mg Pantoprazole Sodium (Protonix) 20 mg PO DAILY DAX Last Admin: 11/06/18 10:04 Dose: 20 mg Polyethylene Glycol (Miralax) 17 gm PO BID DAX Last Admin: 11/06/18 21:21 Dose: Not Given Sodium Chloride () 5 - 15 ml IV UD PRN PRN Reason: SALINE FLUSH Last Admin: 11/04/18 22:40 Dose: 10 ml Sodium Chloride () 10 - 40 ml IV UD PRN PRN Reason: MULTILUMEN/HICMAN CATH FLUSH Last Admin: 11/06/18 14:46 Dose: 10 ml Sodium Chloride () 10 ml IV UD PRN PRN Reason: Dialysis Catheter Flush Tramadol HCl (Ultram) 50 mg PO Q12H PRN PRN PRN Reason: PAIN Last Admin: 11/07/18 08:08 Dose: 50 mg Medical Necessity - Tobacco Use Smoking Status: Former smoker Assessment/Plan All Active Problems (Last Reviewed 11/03/18 @ 08:23 by Guillermo Park MD) Septic shock (Acute) Acute renal failure (Acute) Severe dehydration (Acute) Lactic acidosis (Acute) Hypoxia (Acute) Bloating (Acute) Fall (Resolved) Rhabdomyolysis (Resolved) This 62-year-old male with multiple comorbidities including paraplegia with 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 fib was admitted with shortness of breath for 3 days and productive cough. Abdomen was distended. Patient was found in septic shock lactic acid 5.7 creatinine 4.76 and acute kidney injury. The patient was admitted in ICU and patient was found to be gram-negative sue bacteremia and Acinetobacter and MRSA insect removed. 1. Septic shock secondary to complicated UTI (indwelling Louise catheter), E. coli bacteremia and possible decubitus ulcer Patient was transferred to ICU when he removed his DNR CC status and changed to DNR CCA. Initially on vasopressor support but is off for more than 24 hours. Hemodynamically stable. Polymicrobial nature of septic shock. Sacral Wound culture shows MDR Acinetobacter and MRSA. Urine culture enterococcus and MRSA. Left heel with large area of necrosis and ulcer. ID impression Acenobacter may be colonizer given his improvement without coverage. He requested minocycline colistin suspension testing. Continue vancomycin dosing. 2. Acute kidney injury probably secondary to septic shock/ATN from polymicrobial infection: [employer] has been consulted. Patient has right IJ hemodialysis catheter was dialyzed. 3. 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 Chronic thrombocytopenia -Platelet count is between 20-30,000. Fibrinogen 678, high probably acute phase reactant response No heparin or heparin related products. Bilateral SCDs for DVT prophylaxis. 4. A. fib with RVR -This is likely secondary to the levo fed and his chronic conditions -He had a normal echo in April IV amiodarone is changed to p.o. amiodarone. DVT: SCDs Microbiology Past 72 Hours 11/03/18 10:27 Wound - Sacral Gram Stain - Final 11/03/18 10:27 Wound - Sacral Wound Culture - Preliminary Acinetobacter baumannii Meth. resistant Staph. aureus 11/03/18 10:27 Wound - Sacral Anaerobic Culture - Preliminary Checking for anaerobes, further studies to follow. 11/03/18 03:42 Urine Catheter - Louise Urine Culture - Final Meth. resistant Staph. aureus Enterococcus faecalis 11/03/18 02:55 Blood Culture (Wb) - Anticubital Right Blood Culture - Preliminary Escherichia coli 11/03/18 03:07 Blood Culture (Wb) - Anticubital Left Blood Culture - Preliminary GNR lactose fruit rancher Laboratory Results 11/04/18 17:09: Hep Bs Antigen Negative, Hep Bs Antibody Non Reactive, Hep B Core IgM Ab Negative 11/05/18 04:05: Diff Path Review Reviewed 11/06/18 04:30: Diff Path Review Reviewed 11/07/18 04:10: Sodium 143, Potassium 4.1, Chloride 103, Carbon Dioxide 27.0, Anion Gap 13, BUN 72 H, Creatinine 4.48 H, Estim Creat Clear Calc 16.75, Est GFR (MDRD) Af Amer 17 L, Est GFR (MDRD) Non-Af 14 L, BUN/Creatinine Ratio 16.1, Glucose 79, Calcium 8.4 L 11/07/18 04:10: WBC 13.0 H, RBC 3.97 L, Hgb 10.0 L, Hct 31.0 L, MCV 78.1 L, MCH 25.2 L, MCHC 32.3, RDW 18.2 H, RDW Differential 52.5 H, Plt Count 24 L*, Immature Gran % (Auto) 1.200 H, Neut % (Auto) 86.3 H, Lymph % (Auto) 4.6 L, [place] % (Auto) 7.5, Eos % (Auto) 0.3, Baso % (Auto) 0.1, Absolute Neuts (auto) 11.2 H, Absolute Lymphs (auto) 0.60 L, Total Counted Not Reportable, Differential Comment SCANNED, Diff Path Review Reviewed, Platelet Estimate MKD 11/07/18 04:10: Random Vancomycin 22.0 H 11/07/18 08:55: Troponin I 0.043 11/07/18 14:40: Fibrinogen 678 H Code Visit Inpatient E&M: 25866 Subs Hosp L3
--- NOTE | 2018-11-07 08:38 | PN_ITS ---
Patient Problems: Active and Suspected Problems (Last Reviewed 11/03/18 @ 08:23 by Guillermo Park MD) Septic shock (Acute) Acute renal failure (Acute) Severe dehydration (Acute) Lactic acidosis (Acute) Hypoxia (Acute) Bloating (Acute) Subjective: No high-grade fever for more than 48 hours. Heart rate is controlled, regular. Abdomen is distended. Bowel sounds sluggish. Patient has fecal management system. 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, left heel pressure ulcer Vitals/I&O's: Vital Signs Temp Pulse Resp BP Pulse Ox 96.9 F L 88 23 H 118/67 98 11/07/18 04:00 11/07/18 07:00 11/07/18 07:00 11/07/18 07:00 11/07/18 07:37 Oxygen Flow Rate (L/min) 2 Oxygen Delivery Method Nasal Cannula Weight: 187 lb 13.341 oz Body Mass Index (BMI) 27.1 Intake and Output for Last 24 Hours 11/05/18 11/06/18 11/07/18 23:59 23:59 23:59 Intake Total 678 / 678 1805.7 / 1805.7 528 / 528 Output Total 600 / 600 130 / 130 30 / 30 Balance 78 / 78 1675.7 / 1675.7 498 / 498 General: Alert, Oriented x3, Cooperative HEENT: Atraumatic, PERRLA, EOMI, Normocephalic Neck: Supple, No JVD, - - Left IJ central venous catheter triple lumen right IJ hemodialysis catheter Lungs: Diminished, - Cardiovascular: Regular rate - Air entry diminished., Regular Rhythm, Normal S1, Normal S2, No murmurs Abdomen: Bowel Sounds Present, Soft, Non Tender, Hypoactive Bowel Sounds, Distended Extremities: Capillary Refill Less than 3 Seconds, Edema Skin: Ulcer/ Wound - Stage IV pressure ulcer on sacrum, unstageable right lateral malleolus stage III right heel, left heel Musculoskeletal: Arthritic Changes, Muscle Wasting Neurological: Cranial nerves II-XII grossly intact, - - Paraplegia. Chronic protein and fecal incontinence. Microbiology Past 72 Hours 11/03/18 10:27 Wound - Sacral Gram Stain - Final 11/03/18 10:27 Wound - Sacral Wound Culture - Final Acinetobacter baumannii Meth. resistant Staph. aureus 11/03/18 03:42 Urine Catheter - Louise Urine Culture - Final Meth. resistant Staph. aureus Enterococcus faecalis 11/03/18 02:55 Blood Culture (Wb) - Anticubital Right Blood Culture - Preliminary Escherichia coli 11/03/18 03:07 Blood Culture (Wb) - Anticubital Left Blood Culture - Preliminary GNR lactose underwater welder 11/03/18 07:43 Swab (Method) Nasal Screen MRSA/MSSA - Final Laboratory Results 11/07/18 04:10: Sodium 143, Potassium 4.1, Chloride 103, Carbon Dioxide 27.0, Anion Gap 13, BUN 72 H, Creatinine 4.48 H, Estim Creat Clear Calc 16.75, Est GFR (MDRD) Af Amer 17 L, Est GFR (MDRD) Non-Af 14 L, BUN/Creatinine Ratio 16.1, Glucose 79, Calcium 8.4 L 11/07/18 04:10: WBC 13.0 H, RBC 3.97 L, Hgb 10.0 L, Hct 31.0 L, MCV 78.1 L, MCH 25.2 L, MCHC 32.3, RDW 18.2 H, RDW Differential 52.5 H, Plt Count 24 L*, Immature Gran % (Auto) 1.200 H, Neut % (Auto) 86.3 H, Lymph % (Auto) 4.6 L, [place] % (Auto) 7.5, Eos % (Auto) 0.3, Baso % (Auto) 0.1, Absolute Neuts (auto) 11.2 H, Absolute Lymphs (auto) 0.60 L, Total Counted Not Reportable, Differential Comment SCANNED, Diff Path Review September sarahy Platelet Estimate MKD 11/07/18 04:10: Random Vancomycin 22.0 H Current Medications Acetaminophen (Tylenol) 650 mg PO Q6H PRN PRN PRN Reason: Mild pain 1-3/Temp > 100.7 F Last Admin: 11/05/18 02:38 Dose: 650 mg Albuterol Sulfate (Ventolin Aerosols) 2.5 mg INHALATION Q2H PRN PRN PRN Reason: SOB/Wheezing Amiodarone HCl (Cordarone) 200 mg PO DAILY [facility] Bisacodyl (Dulcolax) 10 mg RECTAL DAILY PRN PRN PRN Reason: CONSTIPATION Last Admin: 11/04/18 07:07 Dose: 10 mg Calamine/Phenol (Calmoseptine Ointment) 1 applic TOPICAL TID PRN; Protocol PRN Reason: TOPICAL IRRITATIONS Chlorhexidine Gluconate () 1 each TOPICAL DAILY [facility] Dextrose (D50w Syringe) 0 gm IV X1 PRN; Protocol PRN Reason: Hypoglycemia Diphenhydramine HCl (Benadryl) 50 mg PO Q6H PRN PRN Reason: ITCHING Ergocalciferol (Vitamin D) 50,000 unit PO Gupta [facility] Last Admin: 11/06/18 10:04 Dose: 50,000 unit Fentanyl Citrate (Sublimaze (100mcg Ampule)) 50 mcg IV Q2H PRN PRN PRN Reason: PAIN Last Admin: 11/07/18 03:01 Dose: 50 mcg Glucagon () 1 mg IM .X1 PRN PRN Reason: Hypoglycemia Guaifenesin (Mucinex) 600 mg PO BID [facility] Last Admin: 11/06/18 21:42 Dose: 600 mg Heparin Sodium (Porcine) () 2,500 units IV UD PRN PRN Reason: HEPARIN FLUSH Hydrocortisone (Hytone) 1 applic TOPICAL BID [facility] Last Admin: 11/06/18 21:42 Dose: 1 applicatio Piperacillin Sod/Tazobactam (Sod 3.375 gm/ Sodium Chloride) 50 mls @ 12.5 mls/hr IV Q12 [facility] Last Admin: 11/06/18 21:42 Dose: 12.5 mls/hr Vancomycin IV Pharmacy to Dose (1 ea/ Sodium Chloride) 500 mls @ 250 mls/hr IV X1 PRN; Protocol PRN Reason: Rx to Dose Sodium Chloride () 250 mls @ 15 mls/hr IV .[id number] PRN PRN Reason: SALINE FLUSH Last Admin: 11/06/18 14:00 Dose: 15 mls/hr Norepinephrine Bitartrate 8 mg (/ Sodium Chloride) 250 mls @ 9.38 mls/hr CONT INF .[id number] [facility] Last Admin: 11/06/18 13:39 Dose: Not Given Magnesium Hydroxide (Milk Of Magnesia) 30 ml PO DAILY PRN PRN PRN Reason: Constipation Nystatin (Mycostatin Powder) 1 applic TOPICAL DAILY DAX; Protocol Last Admin: 11/06/18 10:05 Dose: 1 applic Ondansetron HCl (Zofran) 4 mg IV Q8H PRN PRN PRN Reason: NAUSEA/VOMITING Last Admin: 11/05/18 15:17 Dose: 4 mg Pantoprazole Sodium (Protonix) 20 mg PO DAILY [facility] Last Admin: 11/06/18 10:04 Dose: 20 mg Polyethylene Glycol (Miralax) 17 gm PO BID DAX Last Admin: 11/06/18 21:21 Dose: Not Given Sodium Chloride () 5 - 15 ml IV UD PRN PRN Reason: SALINE FLUSH Last Admin: 11/04/18 22:40 Dose: 10 ml Sodium Chloride () 10 - 40 ml IV UD PRN PRN Reason: MULTILUMEN/HICMAN CATH FLUSH Last Admin: 11/06/18 14:46 Dose: 10 ml Sodium Chloride () 10 ml IV UD PRN PRN Reason: Dialysis Catheter Flush Tramadol HCl (Ultram) 50 mg PO Q12H PRN PRN PRN Reason: PAIN Last Admin: 11/07/18 08:08 Dose: 50 mg Medical Necessity - Tobacco Use Smoking Status: Former smoker Assessment/Plan All Active Problems (Last Reviewed 11/03/18 @ 08:23 by Guillermo Park MD) Septic shock (Acute) Acute renal failure (Acute) Severe dehydration (Acute) Lactic acidosis (Acute) Hypoxia (Acute) Bloating (Acute) Fall (Resolved) Rhabdomyolysis (Resolved) This 62-year-old male with multiple comorbidities including paraplegia with 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 fib was admitted with shortness of breath for 3 days and productive cough. Abdomen was distended. Patient was found in septic shock lactic acid 5.7 creatinine 4.76 and acute kidney injury. The patient was admitted in ICU and patient was found to be gram-negative sue bacteremia and Acinetobacter and MRSA insect removed. 1. Septic shock secondary to complicated UTI (indwelling Louise catheter), E. coli bacteremia and possible decubitus ulcer Patient was transferred to ICU when he removed his DNR CC status and changed to DNR CCA. Initially on vasopressor support but is off for more than 24 hours. Hemodynamically stable. Polymicrobial nature of septic shock. Sacral Wound culture shows MDR Acinetobacter and MRSA. Urine culture enterococcus and MRSA. Left heel with large area of necrosis and ulcer. ID impression Acenobacter may be colonizer given his improvement without coverage. He requested minocycline colistin suspension testing. Continue vancomycin dosing. 2. Acute kidney injury probably secondary to septic shock/ATN from polymicrobial infection: Respiratory Medicine Physician has been consulted. Patient has right IJ hemodialysis catheter was dialyzed. 3. 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 Chronic thrombocytopenia -Platelet count is between 20-30,000. Fibrinogen 678, high probably acute phase reactant response No heparin or heparin related products. Bilateral SCDs for DVT prophylaxis. 4. A. fib with RVR -This is likely secondary to the levo fed and his chronic conditions -He had a normal echo in April IV amiodarone is changed to p.o. amiodarone. DVT: SCDs Microbiology Past 72 Hours 11/03/18 10:27 Wound - Sacral Gram Stain - Final 11/03/18 10:27 Wound - Sacral Wound Culture - Preliminary Acinetobacter baumannii Meth. resistant Staph. aureus 11/03/18 10:27 Wound - Sacral Anaerobic Culture - Preliminary Checking for anaerobes, further studies to follow. 11/03/18 03:42 Urine Catheter - Louise Urine Culture - Final Meth. resistant Staph. aureus Enterococcus faecalis 11/03/18 02:55 Blood Culture (Wb) - Anticubital Right Blood Culture - Preliminary Escherichia coli 11/03/18 03:07 Blood Culture (Wb) - Anticubital Left Blood Culture - Preliminary GNR lactose underwater welder Laboratory Results 11/04/18 17:09: Hep Bs Antigen Negative, Hep Bs Antibody Non Reactive, Hep B Core IgM Ab Negative 11/05/18 04:05: Diff Path Review Reviewed 11/06/18 04:30: Diff Path Review Reviewed 11/07/18 04:10: Sodium 143, Potassium 4.1, Chloride 103, Carbon Dioxide 27.0, Anion Gap 13, BUN 72 H, Creatinine 4.48 H, Estim Creat Clear Calc 16.75, Est GFR (MDRD) Af Amer 17 L, Est GFR (MDRD) Non-Af 14 L, BUN/Creatinine Ratio 16.1, Glucose 79, Calcium 8.4 L 11/07/18 04:10: WBC 13.0 H, RBC 3.97 L, Hgb 10.0 L, Hct 31.0 L, MCV 78.1 L, MCH 25.2 L, MCHC 32.3, RDW 18.2 H, RDW Differential 52.5 H, Plt Count 24 L*, Immature Gran % (Auto) 1.200 H, Neut % (Auto) 86.3 H, Lymph % (Auto) 4.6 L, [place] % (Auto) 7.5, Eos % (Auto) 0.3, Baso % (Auto) 0.1, Absolute Neuts (auto) 11.2 H, Absolute Lymphs (auto) 0.60 L, Total Counted Not Reportable, Differential Comment SCANNED, Diff Path Review Reviewed, Platelet Estimate MKD 11/07/18 04:10: Random Vancomycin 22.0 H 11/07/18 08:55: Troponin I 0.043 11/07/18 14:40: Fibrinogen 678 H Code Visit Inpatient E&M: 60020 Subs Hosp L3
[2018-11-07] MEDS: CHLORHEXIDINE GLUC 2% CLOTH 1 EACH TOWELETTE TOPICAL (08:52)
[2018-11-07] MEDS: Amiodarone 200 MG Tablet PO (08:52)
--- NOTE | 2018-11-07 09:51 | CASEMGMT ---
RN MEKA Note: participated in ICU interdisciplinary rounding. Anticipate pt will have hemodialysis today. Per physician, do not know yet whether outpt dialysis will be needed, awaiting nephrology to see pt today. RN MEKA requested nurse let RN MEKA know when flight teacher is here or if he recommends outpt referral for hemodialysis be started by cm. David MORALESN RN ACM
[2018-11-07] MEDS: guaiFENesin 600 MG Tablet PO ×2 (10:12→22:52)
[2018-11-07] MEDS: Pantoprazole Sodium 20 MG Tablet PO (10:12)
[2018-11-07] MEDS: Nystatin Powder 15gm Bottle 1 APPLIC TOPICAL (10:13)
[2018-11-07] MEDS: Hydrocortisone 2.5% Crm 1 APPLIC TOPICAL (10:13)
[2018-11-07 11:10] LABS: Hep B Surface Antibodies Non Reactive (.); Hepatitis B Core AB IgM Negative (Negative)
--- NOTE | 2018-11-07 11:16 | PN.RENAL_ITS ---
Patient Problems: Active and Suspected Problems (Last Reviewed 11/03/18 @ 08:23 by Guillermo Park MD) Septic shock (Acute) Acute renal failure (Acute) Severe dehydration (Acute) Lactic acidosis (Acute) Hypoxia (Acute) Bloating (Acute) Subjective: Pt is complaining of itchiness. No SOB. No nausea/vomiting - Physical Exam General: Alert, Cooperative HEENT: Atraumatic Oral: Moist Mucosa Neck: Supple, No JVD Lungs: Clear to auscultation, Normal air movement, No rhonchi, No wheeze Cardiovascular: Regular rate, Regular Rhythm, Normal S1, Normal S2 Abdomen: Bowel Sounds Present, Non Tender, Distended Extremities: No clubbing, No cyanosis, Edema - +2 edema Skin: No rashes Psych/Mental Status: Normal Affect Vital Signs Temp Pulse Resp BP Pulse Ox 96.8 F L 113 H 20 H 127/62 H 95 11/07/18 08:00 11/07/18 08:00 11/07/18 08:00 11/07/18 08:00 11/07/18 08:00 Oxygen Flow Rate (L/min) 2 Oxygen Delivery Method Nasal Cannula Weight: 85.2 kg Body Mass Index (BMI) 27.1 Intake and Output for Last 24 Hours 11/05/18 11/06/18 11/07/18 23:59 23:59 23:59 Intake Total 678 / 678 1805.7 / 1805.7 528 / 528 Output Total 600 / 600 130 / 130 30 / 30 Balance 78 / 78 1675.7 / 1675.7 498 / 498 Microbiology Past 72 Hours 11/03/18 10:27 Gram Stain - Final Wound - Sacral Wound Culture - Final Acinetobacter baumannii Meth. resistant Staph. aureus Anaerobic Culture - Preliminary Checking for anaerobes, further studies to follow. 11/03/18 03:42 Urine Culture - Final Urine Catheter - Louise Meth. resistant Staph. 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 11/03/18 07:43 Nasal Screen MRSA/MSSA - Final Swab (Method) Laboratory Tests Past 24 Hrs 11/04/18 11/07/18 11/07/18 17:09 04:10 04:10 WBC 13.0 H RBC 3.97 L Hgb 10.0 L Hct 31.0 L MCV 78.1 L MCH 25.2 L MCHC 32.3 RDW 18.2 H RDW Differential 52.5 H Plt Count 24 L* Immature Gran % (Auto) 1.200 H Neut % (Auto) 86.3 H Lymph % (Auto) 4.6 L [place] % (Auto) 7.5 Eos % (Auto) 0.3 Baso % (Auto) 0.1 Absolute Neuts (auto) 11.2 H Absolute Lymphs (auto) 0.60 L Total Counted Not Reportable Differential Comment SCANNED Diff Path Review May foll Platelet Estimate MKD DEC Sodium 143 Potassium 4.1 Chloride 103 Carbon Dioxide 27.0 Anion Gap 13 BUN 72 H Creatinine 4.48 H Estim Creat Clear Calc 16.75 Est GFR (MDRD) Af Amer 17 L Est GFR (MDRD) Non-Af 14 L BUN/Creatinine Ratio 16.1 Glucose 79 Calcium 8.4 L Troponin I Random Vancomycin Hep Bs Antigen Negative Hep Bs Antibody Non Reactive Hep B Core IgM Ab Negative 11/07/18 11/07/18 04:10 08:55 WBC RBC Hgb Hct MCV MCH MCHC RDW RDW Differential Plt Count Immature Gran % (Auto) Neut % (Auto) Lymph % (Auto) [place] % (Auto) Eos % (Auto) Baso % (Auto) Absolute Neuts (auto) Absolute Lymphs (auto) Total Counted Differential Comment Diff Path Review Platelet Estimate Sodium Potassium Chloride Carbon Dioxide Anion Gap BUN Creatinine Estim Creat Clear Calc Est GFR (MDRD) Af Amer Est GFR (MDRD) Non-Af BUN/Creatinine Ratio Glucose Calcium Troponin I 0.043 Random Vancomycin 22.0 H Hep Bs Antigen Hep Bs Antibody Hep B Core IgM Ab Medical Necessity - Tobacco Use Smoking Status: Former smoker Assessment/Plan All Active Problems (Last Reviewed 11/03/18 @ 08:23 by Guillermo Park MD) Septic shock (Acute) Acute renal failure (Acute) Severe dehydration (Acute) Lactic acidosis (Acute) Hypoxia (Acute) Bloating (Acute) Fall (Resolved) Rhabdomyolysis (Resolved) BRANDO ATN .Pt is HD dependent. No recovery of kidney function. Will arrange for HD session today Will continue to monitor kidney function recovery Edema LE UF as tolerated with HD Shock septic resolved levophed off today Thrombocytopenia per primary E Colli bacteremia sacral wound acinetobacter and staph aureus Urine cx mrsa and E faecalis abx per primary ID consult in am for abx mgmt Neurogenic bladder Louise in Paraplegia/ Renal team will continue to follow Please call if any question at [phone]
--- NOTE | 2018-11-07 13:01 | RAD_ITS ---
STUDY: X-RAY - LEFT FOOT CLINICAL: Male, 62 years old. Pain and swelling TECHNIQUE: 4 view(s) of the foot. COMPARISON: None. FINDINGS: Bones are demineralized. Polyarticular arthrosis noted at all visualized joint spaces. No demonstrated fracture, but there are areas of demineralization can be seen with reflex sympathetic dystrophy. No erosive lesion or subcutaneous emphysema though a subtle erosive lesion could be overlooked due to overlapping osseous structures. If there are strong clinical suspicion of a fracture or erosive lesion, recommend further evaluation with CT. RAD/Foot min 3 Views IMPRESSION: Demineralization of the osseous structures with polyarticular arthrosis. No demonstrated fracture, please see discussion above Electronically Signed: Hector Pineda MD at 14:47 EDT , Service support ,
[2018-11-07 13:15] LABS: Pathologist Review Reviewed
[2018-11-07 13:20] LABS: Pathologist Review Reviewed
[2018-11-07 13:21] LABS: Pathologist Review Reviewed
--- NOTE | 2018-11-07 13:36 | CON.PCM_ITS ---
Problem List (1) Septic shock Status: Acute Reason for Consult: bacteremia Consulted by: Dr. Lawton History of Present Illness: The patient is a 62 year old M with paraplegia, presented 11/03 with several days of not feeling well. He does not remember what happened. Friend at bedside reports his hands were blue. Taken to ED, lactate over 5, in BRANDO, fever to 102.5, admitted to icu with septic shock on vanc/zosyn. Feeling better, moved out of unit today. Getting IHD. Some diffuse abd pain. Denies cough. Full ROS performed and neg except as noted above. 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) Thrombocytopenia (Chronic) Allergies/Adverse Reactions: Allergies wool Allergy (Severe, Verified 11/03/18 02:40) Other UNABLE TO BREATH NSAIDS (Non-Steroidal Anti-Inflamma Allergy (Verified 11/03/18 02:40) Rash Home Medications: Ambulatory Orders Medication Instructions Recorded Albuterol Aerosols [Ventolin 2.5 mg INHALATION Q6H PRN PRN 11/03/18 Aerosols] Bisacodyl 10 mg RC DAILY PRN PRN 11/03/18 Cholecalciferol (Vitamin D3) 50,000 unit PO GENAO 11/03/18 [Vitamin D] DiphenhydrAMINE [Benadryl] 50 mg PO Q6H PRN 11/03/18 Escitalopram Oxalate 10 mg PO DAILY 11/03/18 Guaifenesin [Mucinex] 600 mg PO BID 11/03/18 Hydrocortisone 1% Crm [Hytone] 1 applic TOPICAL BID 11/03/18 Levofloxacin [Levaquin] 500 mg PO DAILY 11/03/18 Lisinopril [Zestril] 10 mg PO DAILY 11/03/18 Magnesium Hydroxide [Milk Of 30 ml PO DAILY PRN PRN 11/03/18 Magnesia] Methocarbamol 1,500 mg PO TID 11/03/18 Multivitamin [Once Daily] 1 each PO DAILY 11/03/18 Nystatin Powder [Mycostatin Powder] 1 applic TOPICAL DAILY 11/03/18 Omeprazole 20 mg PO DAILY 11/03/18 Tizanidine HCl 4 mg PO Q8H 11/03/18 traMADol [Ultram (G)] 50 mg PO Q6H PRN PRN 11/03/18 - Social History SMOKING STATUS:: Former smoker Vital Signs Temp Pulse Resp BP Pulse Ox 97.2 F L 94 26 H 145/79 H 99 11/07/18 12:51 11/07/18 12:51 11/07/18 12:51 11/07/18 12:51 11/07/18 12:51 Oxygen Flow Rate (L/min) 3 Oxygen Delivery Method Nasal Cannula Weight: 85.2 kg Body Mass Index (BMI) 27.1 Microbiology Past 72 Hours 11/03/18 10:27 Gram Stain - Final Wound - Sacral Wound Culture - Final Acinetobacter baumannii Meth. resistant Staph. aureus Anaerobic Culture - Preliminary Checking for anaerobes, further studies to follow. 11/03/18 03:42 Urine Culture - Final Urine Catheter - Alford Meth. resistant Staph. 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 11/03/18 07:43 Nasal Screen MRSA/MSSA - Final Swab (Method) Laboratory Tests Past 24 Hrs 11/04/18 11/05/18 11/06/18 17:09 04:05 04:30 WBC RBC Hgb Hct MCV MCH MCHC RDW RDW Differential Plt Count Immature Gran % (Auto) Neut % (Auto) Lymph % (Auto) [place] % (Auto) Eos % (Auto) Baso % (Auto) Absolute Neuts (auto) Absolute Lymphs (auto) Total Counted Differential Comment Diff Path Review Reviewed Reviewed Platelet Estimate Sodium Potassium Chloride Carbon Dioxide Anion Gap BUN Creatinine Estim Creat Clear Calc Est GFR (MDRD) Af Amer Est GFR (MDRD) Non-Af BUN/Creatinine Ratio Glucose Calcium Troponin I Random Vancomycin Hep Bs Antigen Negative Hep Bs Antibody Non Reactive Hep B Core IgM Ab Negative 11/07/18 11/07/18 11/07/18 04:10 04:10 04:10 WBC 13.0 H RBC 3.97 L Hgb 10.0 L Hct 31.0 L MCV 78.1 L MCH 25.2 L MCHC 32.3 RDW 18.2 H RDW Differential 52.5 H Plt Count 24 L* Immature Gran % (Auto) 1.200 H Neut % (Auto) 86.3 H Lymph % (Auto) 4.6 L [place] % (Auto) 7.5 Eos % (Auto) 0.3 Baso % (Auto) 0.1 Absolute Neuts (auto) 11.2 H Absolute Lymphs (auto) 0.60 L Total Counted Not Reportable Differential Comment SCANNED Diff Path Review Reviewed Platelet Estimate MKD DEC Sodium 143 Potassium 4.1 Chloride 103 Carbon Dioxide 27.0 Anion Gap 13 BUN 72 H Creatinine 4.48 H Estim Creat Clear Calc 16.75 Est GFR (MDRD) Af Amer 17 L Est GFR (MDRD) Non-Af 14 L BUN/Creatinine Ratio 16.1 Glucose 79 Calcium 8.4 L Troponin I Random Vancomycin 22.0 H Hep Bs Antigen Hep Bs Antibody Hep B Core IgM Ab 11/07/18 08:55 WBC RBC Hgb Hct MCV MCH MCHC RDW RDW Differential Plt Count Immature Gran % (Auto) Neut % (Auto) Lymph % (Auto) [place] % (Auto) Eos % (Auto) Baso % (Auto) Absolute Neuts (auto) Absolute Lymphs (auto) Total Counted Differential Comment Diff Path Review Platelet Estimate Sodium Potassium Chloride Carbon Dioxide Anion Gap BUN Creatinine Estim Creat Clear Calc Est GFR (MDRD) Af Amer Est GFR (MDRD) Non-Af BUN/Creatinine Ratio Glucose Calcium Troponin I 0.043 Random Vancomycin Hep Bs Antigen Hep Bs Antibody Hep B Core IgM Ab - Other Studies Radiology: [] reviewed Other Studies: [] Route of nutrition/ use of supplements: [] Nutritional Intake: [] IV Site: [] Alford Catheter: [] - Physical Exam General: Alert, Oriented x3, Cooperative, No apparent distress HEENT: Atraumatic, PERRLA, EOMI Neck: Supple, No Nodes Lungs: Clear to auscultation, Normal air movement Cardiovascular: Regular rate, Regular Rhythm Abdomen: Soft, - - mild tenderness and distension Extremities: Edema Skin: Ulcer/ Wound - reviewed photos. L heel with necrotic changes. IV Site: Central Line, without redness Musculoskeletal: No Tenderness to Palpation of Joints or Extremities Neurological: Cranial nerves II-XII grossly intact - Assessment/Plan Antibiotics: [] Assessment/Plan: [] Active and Suspected Problems (Last Reviewed 11/03/18 @ 08:23 by Guillermo Park MD) Septic shock (Acute) Acute renal failure (Acute) Severe dehydration (Acute) Lactic acidosis (Acute) Hypoxia (Acute) Bloating (Acute) septic shock with ecoli bacteremia, BRANDO, and acute on chronic thrombocytopenia - overall improved on vanc/zosyn, but platelets worsening. Remains on HD now. U cx with enterococcus and MRSA; has chronic alford. Sacral wound cx with MRSA and MDR Acinetobacter. L heel with large area of necrosis. CT abd/pelvis did not show osteo or abscess. Wound care following. The AcB may be a colonizer given his improvement without coverage. Spoke with micro lab and requested minocycline and colistin susc testing. Will check xray of heel. May need plastic surgery eval for his sacrum and his heel. Cont vanc/zosyn for now. Will follow, thank you.
--- NOTE | 2018-11-07 14:24 | NURSING ---
Pt receiving dialysis at bedside. Pts friend in room. Call light within reach.
[2018-11-07 15:01] LABS: Fibrinogen 678 mg/dl (203-444)
--- NOTE | 2018-11-07 15:15 | PHA.PHARE_ITS ---
Consult Pharmacy has been consulted to manage selected antiobiotic: Vancomycin Type of Consult: Follow-up Suspected Infection: Other Prior Doses of Antibiotics Received/Current Regimen: Received 500mg iv x1 on 11.05.18 post dialysis. Labs: Sodium 143 mmol/L (136-145) 11/07/18 04:10 Potassium 4.1 mmol/L (3.5-5.1) 11/07/18 04:10 Chloride 103 mmol/L (98-107) 11/07/18 04:10 Carbon Dioxide 27.0 mmol/L (21.0-32.0) 11/07/18 04:10 Anion Gap 13 (5-15) 11/07/18 04:10 BUN 72 mg/dL (7-18) H 11/07/18 04:10 Creatinine 4.48 mg/dL (0.70-1.30) H 11/07/18 04:10 Est GFR (MDRD) Af Amer 17 mL/min (>60) L 11/07/18 04:10 Est GFR (MDRD) Non-Af 14 mL/min (>60) L 11/07/18 04:10 BUN/Creatinine Ratio 16.1 RATIO (10-20) 11/07/18 04:10 Glucose 79 mg/dL (74-106) 11/07/18 04:10 Vancomycin Trough 22.3 ug/mL (5.0-15.0) H 11/06/18 06:20 Random Vancomycin 22.0 ug/mL (0.0-15.0) H 11/07/18 04:10 Microbiology: Microbiology 11/03/18 10:27 Wound - Sacral Gram Stain - Final 11/03/18 10:27 Wound - Sacral Wound Culture - Preliminary Acinetobacter baumannii Meth. resistant Staph. aureus 11/03/18 10:27 Wound - Sacral Anaerobic Culture - Preliminary Checking for anaerobes, further studies to follow. 11/03/18 03:42 Urine Catheter - Louise Urine Culture - Final Meth. resistant Staph. 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 Will defer giving any further doses for now and get repeat random level on 11.09.18 @0600. Further dosing will be done at that time based on level. Pharmacy Service will continue to monitor and adjust dosing as required. Follow-Up Labs: Trough Other - random level 11.09.18 @0600
--- NOTE | 2018-11-07 15:36 | CASEMGMT ---
LACI CM Note: RN CM call to Dr. Childs re: outpt dialysis. Per Dr. Childs- pt will need outpt dialysis as acute patient and referral can be started to [facility]. David MORALESN RN ACM
[2018-11-07] MEDS: Haloperidol Lactate 5 MG/ML Vial 2 MG IV (16:24)
[2018-11-07] MEDS: proMETHazine 25 MG/ML Syringe IV (16:25)
--- NOTE | 2018-11-07 18:24 | DIALYSIS ---
Hemodialysis tx completed x 3.5 hours. Pt agitated at times throughout tx requiring medication. Fluid removed 1,200ml. Hypotension during second half of dialysis after receiving Haldol during tx due to severe agitation. Pt pulling off O2, at CVC, as well as alford prior to medications. Pt again agitated post tx. Verbal report given to LACI Gusman.
[2018-11-08] VITALS (24 sets, daily range): BP systolic 104–150; BP diastolic 47–84; PULSE 82–183; RESP 20–40; TEMP 36.2–37.4; O2SAT 92–99
--- NOTE | 2018-11-08 00:16 | NURSING ---
Pt c/o 01/31 pain. This RN retrieved Ultram from accudose and returned to pt room. Upon returning to room, pt denies pain. Ultram wasted in Rxdestroyer.
--- NOTE | 2018-11-08 05:55 | EKG12_ITS ---
Test Reason : RYTHUM CHANGE Blood Pressure : / mmHG Vent. Rate : 112 BPM Atrial Rate : 112 BPM P-R Int : 126 ms QRS Dur : 082 ms QT Int : 328 ms P-R-T Axes : 050 008 047 degrees QTc Int : 447 ms Sinus tachycardia Otherwise normal ECG When compared with ECG of 08-NOV-2018 05:24, MANUAL COMPARISON REQUIRED, DATA IS UNCONFIRMED Confirmed by VERNELL FERGUSON, TANVIR ([id number]), fashion editor CJ BACH ([id number]) on 11/15/2018 6:51:31 AM Referred By: Guillermo Park Confirmed By:SELINA MATT MD
--- NOTE | 2018-11-08 09:50 | PN_ITS ---
Patient Problems: Active and Suspected Problems (Last Reviewed 11/03/18 @ 08:23 by Guillermo Park MD) Septic shock (Acute) Acute renal failure (Acute) Severe dehydration (Acute) Lactic acidosis (Acute) Hypoxia (Acute) Bloating (Acute) Subjective: The patient was seen and examined at the bedside this morning. Events from the last 24 hours have been reviewed. The patient is currently afebrile, hemodynamically stable and maintaining appropriate oxygen saturations on 3 L/min via nasal cannula. The patient tolerated hemodialysis yesterday with 1.2 L of fluid removed. Objective: The patient's most recent lab work, culture data and imaging studies have all been personally reviewed. Blood culture dated November 03 was positive for E. coli. Urine culture dated November 03 was positive for MRSA and Enterococcus faecalis. Sacral wound culture was positive for Acinetobacter and staph aureus. - Physical Exam General: Alert, No apparent distress HEENT: Atraumatic, PERRLA, Normocephalic Oral: No Gingival or Mucosal Lesions/ Ulcerations Neck: Supple, No Nodes, Trachea Midline Lungs: Diminished Cardiovascular: Regular rate, Regular Rhythm, Normal S1, Normal S2 Abdomen: Bowel Sounds Present, Soft, Non Tender Extremities: No clubbing, No cyanosis, Edema Skin: - - No significant change from previous Musculoskeletal: No Muscle Wasting Lymphatic: No Cervical, Supraclavicular, or Inguinal Adenopathy Neurological: Neuro grossly intact Psych/Mental Status: Flat Affect Vital Signs Temp Pulse Resp BP Pulse Ox 972 F H 99 38 H 131/72 H 97 11/08/18 09:07 11/08/18 09:07 11/08/18 09:07 11/08/18 09:07 11/08/18 09:07 Oxygen Flow Rate (L/min) 3 Oxygen Delivery Method Nasal Cannula Weight: 184 lb 8.43 oz Body Mass Index (BMI) 27.1 Intake and Output for Last 24 Hours 11/06/18 11/07/18 11/08/18 23:59 23:59 23:59 Intake Total 1805.7 / 2075.7 822.7 / 822.7 Output Total 130 / 130 1590 / 1590 0 / 0 Balance 1675.7 / 1945.7 -767.3 / -767.3 Microbiology Past 72 Hours 11/03/18 10:27 Gram Stain - Final Wound - Sacral Wound Culture - Preliminary Acinetobacter baumannii Meth. resistant Staph. aureus Anaerobic Culture - Final No anaerobic bacteria isolated. 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 resistant Staph. aureus Enterococcus faecalis Laboratory Tests Past 24 Hrs 11/04/18 11/05/18 11/06/18 17:09 04:05 04:30 Diff Path Review Reviewed Reviewed Fibrinogen Hep Bs Antigen Negative Hep Bs Antibody Non Reactive Hep B Core IgM Ab Negative 11/07/18 11/07/18 04:10 14:40 Diff Path Review Reviewed Fibrinogen 678 H Hep Bs Antigen Hep Bs Antibody Hep B Core IgM Ab Clinical Impression(s) from Imaging Studies Chest X-Ray 11/03/18 03:03 IMPRESSION: Minimal fluid tracking in the right minor fissure. Interval posterior thoracic spinal fixation. No focal lung consolidative changes. Electronically Signed: Azar Marino, at 3:41 EDT Tel , Service support , Abdomen/Pelvis CT 11/03/18 04:09 IMPRESSION: Negative unenhanced CT of the abdomen and pelvis for acute abnormality Nonobstructive right renal pelvic calculus. Moderate retained stool within the colon and rectum. Correlate for constipation. Cholelithiasis. Louise catheter drainage of the urinary bladder. Electronically Signed: Azar Marino, at 5:14 EDT Tel , Service support , KUB X-Ray 11/03/18 10:19 IMPRESSION: Nonspecific bowel gas pattern. Electronically Signed: Venkata Franklin, at 14:59 EDT , Service support , Lumbar Spine MRI 11/03/18 10:19 IMPRESSION: Again seen is ankylosing spondylitis as described above, unchanged since prior exams. No focal collection or abscess. Stable chronic findings are described above. No significant degenerative disease. Electronically Signed: Kevyn Solis, at 13:38 EDT Tel , Service support , Chest X-Ray 11/04/18 14:12 IMPRESSION: The tip of the right dialysis catheter is at the junction of the superior vena cava and right atrium. Progressive right upper lobe infiltrate with increased markings at the left lung base. Electronically Signed: Venkata Rigoberto, at 15:08 EDT , Service support , Foot X-Ray 11/07/18 13:01 IMPRESSION: Demineralization of the osseous structures with polyarticular arthrosis. No demonstrated fracture, please see discussion above Electronically Signed: Hector Pineda MD at 14:47 EDT , Service support , Medical Necessity - Tobacco Use Smoking Status: Former smoker Assessment/Plan All Active Problems (Last Reviewed 11/03/18 @ 08:23 by Guillermo Park MD) Septic shock (Acute) Acute renal failure (Acute) Severe dehydration (Acute) Lactic acidosis (Acute) Hypoxia (Acute) Bloating (Acute) Fall (Resolved) Rhabdomyolysis (Resolved) RECOMMENDATIONS: 1. Continue antibiotics per ID recommendations. 2. Continue to monitor platelet count daily. No indication for transfusion at this time. 3. Continue hemodialysis per nephrology recommendations. 4. Wean supplemental oxygen as tolerated. Encourage incentive spirometer use. IMPRESSIONS: 1. Polymicrobial septic shock The patient was initially noted to have evidence of gram-negative bacteremia with wound cultures also positive for Acinetobacter and MRSA. He is currently on appropriate broad-spectrum antimicrobials. Infectious diseases is following to assist with management of antimicrobials. Continue local wound care. 2. Acute kidney injury secondary to #1 The patient's acute kidney injury was felt to be secondary to ATN from septic shock. Nephrology is currently following. Continue hemodialysis support per their recommendations. 3. Thrombocytopenia This reportedly is chronic. We will continue with monitoring for bleeding complications. There is no evidence of overt signs of blood loss. There is no indication for transfusion of platelets at this time. 4. Atrial fibrillation with rapid ventricular rate The patient did develop atrial fibrillation during his hospitalization. He did respond favorably to the use of amiodarone. This will be continued accordingly. 5. Ankylosing spondylitis/paraplegia/neurogenic bladder with chronic indwelling Louise/psoriasis/debility/decubitus ulcers Complicates care, management, recovery and prognosis. Continue local wound care. This note was generated with [employer] dictation software. It may contain incorrect words, spelling, and punctuation that were not noted in checking the note before signing. Code Visit Inpatient E&M: 15013 Subs Hosp L2
--- NOTE | 2018-11-08 09:54 | PCM.PN.HOSP ---
Patient Problems: Active and Suspected Problems (Last Reviewed 11/03/18 @ 08:23 by Guillermo Park MD) Septic shock (Acute) Acute renal failure (Acute) Severe dehydration (Acute) Lactic acidosis (Acute) Hypoxia (Acute) Bloating (Acute) Subjective: Patient gets intermittent agitation and restlessness. Trying to pull out IV line on oxygen. Patient also had intermittent sinus tachycardia with heart rate from 120 to 180/min. On amiodarone 200 mg daily. Vitals/I&O's: Vital Signs Temp Pulse Resp BP Pulse Ox 972 F H 99 38 H 131/72 H 97 11/08/18 09:07 11/08/18 09:07 11/08/18 09:07 11/08/18 09:07 11/08/18 09:07 Oxygen Flow Rate (L/min) 3 Oxygen Delivery Method Nasal Cannula Weight: 184 lb 8.43 oz Body Mass Index (BMI) 27.1 Intake and Output for Last 24 Hours 11/06/18 11/07/18 11/08/18 23:59 23:59 23:59 Intake Total 1805.7 / 2075.7 822.7 / 822.7 Output Total 130 / 130 1590 / 1590 0 / 0 Balance 1675.7 / 1945.7 -767.3 / -767.3 General: Oriented x3, Lethargic, - - Patient does not participate in meaningful conversation mostly secondary to chronic alcohol related brain degeneration/amnesia HEENT: Atraumatic, PERRLA, EOMI, Normocephalic Neck: Supple, No JVD, Negative Carotid Bruits Lungs: Rales, Short of Breath, - - Air entry diminished bilaterally. Weak cough reflex. Cardiovascular: Regular Rhythm, Normal S1, Normal S2, No murmurs, Tachycardic Abdomen: Bowel Sounds Present, Soft, Non Tender, Non-Distended Extremities: No edema, Capillary Refill Less than 3 Seconds Skin: No rashes, No breakdown Musculoskeletal: Arthritic Changes Lymphatic: No Cervical, Supraclavicular, or Inguinal Adenopathy Neurological: - - Paraplegia abdominal questionable. Chronic Louise catheter and fecal management Microbiology Past 72 Hours 11/03/18 10:27 Wound - Sacral Gram Stain - Final 11/03/18 10:27 Wound - Sacral Wound Culture - Preliminary Acinetobacter baumannii Meth. resistant Staph. aureus 11/03/18 10:27 Wound - Sacral Anaerobic Culture - Final No anaerobic bacteria isolated. 11/03/18 03:07 Blood Culture (Wb) - Anticubital Left Blood Culture - Final GNR lactose air brakes inspector 11/03/18 02:55 Blood Culture (Wb) - Anticubital Right Blood Culture - Final Escherichia coli 11/03/18 03:42 Urine Catheter - Louise Urine Culture - Final Meth. resistant Staph. aureus Enterococcus faecalis Laboratory Results 11/04/18 17:09: Hep Bs Antigen Negative, Hep Bs Antibody Non Reactive, Hep B Core IgM Ab Negative 11/05/18 04:05: Diff Path Review Reviewed 11/06/18 04:30: Diff Path Review Reviewed 11/07/18 04:10: Diff Path Review Reviewed 11/07/18 14:40: Fibrinogen 678 H Current Medications Acetaminophen (Tylenol) 650 mg PO Q6H PRN PRN PRN Reason: Mild pain 1-3/Temp > 100.7 F Last Admin: 11/05/18 02:38 Dose: 650 mg Documented by: Albuterol Sulfate (Ventolin Aerosols) 2.5 mg INHALATION Q2H PRN PRN PRN Reason: SOB/Wheezing Amiodarone HCl (Cordarone) 200 mg PO DAILY [facility] Last Admin: 11/07/18 08:52 Dose: 200 mg Documented by: Bisacodyl (Dulcolax) 10 mg RECTAL DAILY PRN PRN PRN Reason: CONSTIPATION Last Admin: 11/04/18 07:07 Dose: 10 mg Documented by: Calamine/Phenol (Calmoseptine Ointment) 1 applic TOPICAL TID PRN; Protocol PRN Reason: TOPICAL IRRITATIONS Chlorhexidine Gluconate () 1 each TOPICAL DAILY [facility] Last Admin: 11/08/18 08:34 Dose: Not Given Documented by: Dextrose (D50w Syringe) 0 gm IV X1 PRN; Protocol PRN Reason: Hypoglycemia Diphenhydramine HCl (Benadryl) 50 mg PO Q6H PRN PRN Reason: ITCHING Ergocalciferol (Vitamin D) 50,000 unit PO Gupta [facility] Last Admin: 11/06/18 10:04 Dose: 50,000 unit Documented by: Fentanyl Citrate (Sublimaze (100mcg Ampule)) 50 mcg IV Q2H PRN PRN PRN Reason: PAIN Last Admin: 11/07/18 15:31 Dose: 50 mcg Documented by: Glucagon () 1 mg IM .X1 PRN PRN Reason: Hypoglycemia Guaifenesin (Mucinex) 600 mg PO BID [facility] Last Admin: 11/07/18 22:52 Dose: 600 mg Documented by: Haloperidol Lactate (Haldol) 2 mg IV Q4H PRN PRN PRN Reason: AGITATION Last Admin: 11/07/18 16:24 Dose: 2 mg Documented by: Heparin Sodium (Porcine) () 2,500 units IV UD PRN PRN Reason: HEPARIN FLUSH Hydrocortisone (Hytone) 1 applic TOPICAL BID [facility] Last Admin: 11/07/18 22:54 Dose: Not Given Documented by: Piperacillin Sod/Tazobactam (Sod 3.375 gm/ Sodium Chloride) 50 mls @ 12.5 mls/hr IV Q12 [facility] Last Admin: 11/07/18 22:52 Dose: 12.5 mls/hr Documented by: Vancomycin IV Pharmacy to Dose (1 ea/ Sodium Chloride) 500 mls @ 250 mls/hr IV X1 PRN; Protocol PRN Reason: Rx to Dose Sodium Chloride () 250 mls @ 15 mls/hr IV .[id number] PRN PRN Reason: SALINE FLUSH Last Admin: 11/06/18 14:00 Dose: 15 mls/hr Documented by: Magnesium Hydroxide (Milk Of Magnesia) 30 ml PO DAILY PRN PRN PRN Reason: Constipation Nystatin (Mycostatin Powder) 1 applic TOPICAL DAILY [facility]; Protocol Last Admin: 11/07/18 10:13 Dose: 1 applic Documented by: Pantoprazole Sodium (Protonix) 20 mg PO DAILY [facility] Last Admin: 11/07/18 10:12 Dose: 20 mg Documented by: Polyethylene Glycol (Miralax) 17 gm PO BID [facility] Last Admin: 11/07/18 22:12 Dose: Not Given Documented by: Promethazine HCl (Phenergan) 25 mg IV Q4H PRN PRN PRN Reason: Nausea/Vomiting/agitation Last Admin: 11/07/18 16:25 Dose: 25 mg Documented by: Quetiapine Fumarate (Seroquel) 50 mg PO QHS PRN PRN Reason: Agitation/insomnia Sodium Chloride () 5 - 15 ml IV UD PRN PRN Reason: SALINE FLUSH Last Admin: 11/04/18 22:40 Dose: 10 ml Documented by: Sodium Chloride () 10 - 40 ml IV UD PRN PRN Reason: MULTILUMEN/HICMAN CATH FLUSH Last Admin: 11/07/18 22:40 Dose: 10 ml Documented by: Sodium Chloride () 10 ml IV UD PRN PRN Reason: Dialysis Catheter Flush Tramadol HCl (Ultram) 50 mg PO Q12H PRN PRN PRN Reason: PAIN Last Admin: 11/07/18 08:08 Dose: 50 mg Documented by: Medical Necessity - Tobacco Use Smoking Status: Former smoker Assessment/Plan All Active Problems (Last Reviewed 11/03/18 @ 08:23 by Guillermo Park MD) Septic shock (Acute) Acute renal failure (Acute) Severe dehydration (Acute) Lactic acidosis (Acute) Hypoxia (Acute) Bloating (Acute) Fall (Resolved) Rhabdomyolysis (Resolved) This 62-year-old male with multiple comorbidities including paraplegia with 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 fib was admitted with shortness of breath for 3 days and productive cough. Abdomen was distended. Patient was found in septic shock lactic acid 5.7 creatinine 4.76 and acute kidney injury. The patient was admitted in ICU and patient was found to be gram-negative sue bacteremia and Acinetobacter and MRSA insect removed. 1. Septic shock secondary to complicated UTI (indwelling Louise catheter), E. coli bacteremia and possible decubitus ulcer Patient was transferred to ICU when he removed his DNR CC status and changed to DNR CCA. Initially on vasopressor support but is off for more than 24 hours. Hemodynamically stable. Polymicrobial nature of septic shock. Sacral Wound culture shows MDR Acinetobacter and MRSA. Urine culture enterococcus and MRSA. Left heel with large area of necrosis and ulcer. ID impression Acenobacter may be colonizer given his improvement without coverage. He requested minocycline and colistin suspension testing. Continue vancomycin dosing. Patient was transferred to PCU on 11/07. Foot x-ray shows no fracture. Demineralization of osseous structure with polyarticular arthrosis. ID requested printed circuit board assembler consult. 2. Acute kidney injury probably secondary to septic shock/ATN from polymicrobial infection: Floor Layer Apprentice has been consulted. Patient has right IJ hemodialysis catheter and is being dialyzed as per [place] net application architect recommendation. 3. 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 Chronic thrombocytopenia -Platelet count is between 20-30,000. Fibrinogen 678, high probably acute phase reactant response No heparin or heparin related products. Bilateral SCDs for DVT prophylaxis. 4. A. fib with RVR -This is likely secondary to the levophedand his chronic conditions IV amiodarone is changed to p.o. amiodarone. Converted to sinus tachycardia. Metoprolol 25 mg twice daily added. 2D echo in April 2018 reported as normal left medical systolic function with mild concentric LVH. EF 55%. Impaired relaxation of left ventricle. Normal RV size systolic function normal right and left atria. Normal mitral and tricuspid valves. DVT: SCDs Microbiology Past 72 Hours 11/03/18 10:27 Wound - Sacral Gram Stain - Final 11/03/18 10:27 Wound - Sacral Wound Culture - Preliminary Acinetobacter baumannii Meth. resistant Staph. aureus 11/03/18 10:27 Wound - Sacral Anaerobic Culture - Preliminary Checking for anaerobes, further studies to follow. 11/03/18 03:42 Urine Catheter - Louise Urine Culture - Final Meth. resistant Staph. aureus Enterococcus faecalis 11/03/18 02:55 Blood Culture (Wb) - Anticubital Right Blood Culture - Preliminary Escherichia coli 11/03/18 03:07 Blood Culture (Wb) - Anticubital Left Blood Culture - Preliminary GNR lactose air brakes inspector Laboratory Results 11/04/18 17:09: Hep Bs Antigen Negative, Hep Bs Antibody Non Reactive, Hep B Core IgM Ab Negative 11/05/18 04:05: Diff Path Review Reviewed 11/06/18 04:30: Diff Path Review Reviewed 11/07/18 04:10: Sodium 143, Potassium 4.1, Chloride 103, Carbon Dioxide 27.0, Anion Gap 13, BUN 72 H, Creatinine 4.48 H, Estim Creat Clear Calc 16.75, Est GFR (MDRD) Af Amer 17 L, Est GFR (MDRD) Non-Af 14 L, BUN/Creatinine Ratio 16.1, Glucose 79, Calcium 8.4 L 11/07/18 04:10: WBC 13.0 H, RBC 3.97 L, Hgb 10.0 L, Hct 31.0 L, MCV 78.1 L, MCH 25.2 L, MCHC 32.3, RDW 18.2 H, RDW Differential 52.5 H, Plt Count 24 L*, Immature Gran % (Auto) 1.200 H, Neut % (Auto) 86.3 H, Lymph % (Auto) 4.6 L, [place] % (Auto) 7.5, Eos % (Auto) 0.3, Baso % (Auto) 0.1, Absolute Neuts (auto) 11.2 H, Absolute Lymphs (auto) 0.60 L, Total Counted Not Reportable, Differential Comment SCANNED, Diff Path Review Reviewed, Platelet Estimate MKD 11/07/18 04:10: Random Vancomycin 22.0 H 11/07/18 08:55: Troponin I 0.043 11/07/18 14:40: Fibrinogen 678 H Code Visit Inpatient E&M: 56529 Subs Hosp L3
--- NOTE | 2018-11-08 10:04 | PN.ID_ITS ---
Patient Problems: Active and Suspected Problems (Last Reviewed 11/03/18 @ 08:23 by Guillermo Park MD) Septic shock (Acute) Acute renal failure (Acute) Severe dehydration (Acute) Lactic acidosis (Acute) Hypoxia (Acute) Bloating (Acute) Subjective: Feeling ok, no fever, denies abd pain - Physical Exam General: Alert, Cooperative, No apparent distress Lungs: Clear to auscultation, Normal air movement Cardiovascular: Regular rate, Regular Rhythm Abdomen: Soft, Non Tender, Distended Extremities: Edema Skin: No rashes Vital Signs Temp Pulse Resp BP Pulse Ox 972 F H 99 38 H 131/72 H 97 11/08/18 09:07 11/08/18 09:07 11/08/18 09:07 11/08/18 09:07 11/08/18 09:07 Oxygen Flow Rate (L/min) 3 Oxygen Delivery Method Nasal Cannula Weight: 83.7 kg Body Mass Index (BMI) 27.1 Intake and Output for Last 24 Hours 11/06/18 11/07/18 11/08/18 23:59 23:59 23:59 Intake Total 1805.7 / 2075.7 822.7 / 822.7 Output Total 130 / 130 1590 / 1590 0 / 0 Balance 1675.7 / 1945.7 -767.3 / -767.3 Microbiology Past 72 Hours 11/03/18 10:27 Gram Stain - Final Wound - Sacral Wound Culture - Preliminary Acinetobacter baumannii Meth. resistant Staph. aureus Anaerobic Culture - Final No anaerobic bacteria isolated. 11/03/18 03:07 Blood Culture - Final Blood Culture (Wb) - Anticubital Left GNR lactose office administrative assistant 11/03/18 02:55 Blood Culture - Final Blood Culture (Wb) - Anticubital Right Escherichia coli 11/03/18 03:42 Urine Culture - Final Urine Catheter - Alford Meth. resistant Staph. aureus Enterococcus faecalis Laboratory Tests Past 24 Hrs 11/04/18 11/05/18 11/06/18 17:09 04:05 04:30 Diff Path Review Reviewed Reviewed Fibrinogen Hep Bs Antigen Negative Hep Bs Antibody Non Reactive Hep B Core IgM Ab Negative 11/07/18 11/07/18 04:10 14:40 Diff Path Review Reviewed Fibrinogen 678 H Hep Bs Antigen Hep Bs Antibody Hep B Core IgM Ab Medical Necessity - Tobacco Use Smoking Status: Former smoker Route of nutrition/ use of supplements: [] Nutritional Intake: [] IV Site: [] Alford Catheter: [] - Assessment/Plan Antibiotics: [] Assessment/Plan: [] Active and Suspected Problems (Last Reviewed 11/03/18 @ 08:23 by Guillermo Park MD) Septic shock (Acute) Acute renal failure (Acute) Severe dehydration (Acute) Lactic acidosis (Acute) Hypoxia (Acute) Bloating (Acute) septic shock with ecoli bacteremia, BRANDO, and acute on chronic thrombocytopenia - overall improved on vanc/zosyn, but platelets worsening. Remains on HD now. Ucx with enterococcus and MRSA; has chronic alford. Sacral wound cx with MRSA and MDR Acinetobacter. L heel with large area of necrosis. CT abd/pelvis did not show osteo or abscess. Wound care following. The AcB may be a colonizer given his improvement without coverage. Have requested minocycline and colistin susc testing. Xray of L heel with no osteo, will consult podiatry for eval. Cont vanc/zosyn for now. Will follow
[2018-11-08] MEDS: Polyethylene Glycol 3350 17 GM PACKET PO (10:14)
[2018-11-08] MEDS: Hydrocortisone 2.5% Crm 1 APPLIC TOPICAL (10:14)
[2018-11-08] MEDS: Nystatin Powder 15gm Bottle 1 APPLIC TOPICAL (10:16)
[2018-11-08] MEDS: Pantoprazole Sodium 20 MG Tablet PO (10:16)
[2018-11-08] MEDS: Amiodarone 200 MG Tablet PO ×2 (10:16→23:19)
[2018-11-08] MEDS: guaiFENesin 600 MG Tablet PO ×2 (10:16→23:30)
--- NOTE | 2018-11-08 10:43 | CASEMGMT ---
Addendum entered by Elsi Mata 11/08/18 12:48: Call received from [facility] and she states they are able to accept pt. She states they will start pre-cert. Original Note: [facility] NOTE: Pt will need continued Dialysis/New Out-pt dialysis @ discharge. To room to talk with pt about discharge planning and to discuss options for discharge, including [facility] w/Out-pt dialysis and LTACH. Pt indecisive about where he would like to go on discharge. Pt agreeable to [facility] talking to Cristine ROBIN, and states he would be agreeable with whatever Cristine decides. Call placed to Cristine @ [phone]. She was made aware pt will need on-going dialysis after discharge from [facility]. Discussed above stated options with Cristine and explained LTACH facilities and care they are able to provide for pt. Cristine agreeable to LTACH for pt @ discharge and states prefers [facility]. Call placed to [facility] and referral made. Referral packet faxed to [facility] @ [phone]. Anthony PATEL RN, CM
--- NOTE | 2018-11-08 13:14 | CASEMGMT ---
Patient is going to be going to an LTACH at d/c. SW called Magalie at [facility] and let her know this plan. Joann SALAMANCA MSW
[2018-11-08] MEDS: Haloperidol Lactate 5 MG/ML Vial 2 MG IV (13:59)
--- NOTE | 2018-11-08 15:33 | NURSING ---
wound photo: left heel
--- NOTE | 2018-11-08 15:34 | NURSING ---
wound photo: right heel
--- NOTE | 2018-11-08 15:35 | NURSING ---
wound photo: sacrum
--- NOTE | 2018-11-08 15:43 | EKG12_ITS ---
Test Reason : AM EKG Blood Pressure : / mmHG Vent. Rate : 093 BPM Atrial Rate : 093 BPM P-R Int : 146 ms QRS Dur : 086 ms QT Int : 368 ms P-R-T Axes : 048 009 064 degrees QTc Int : 457 ms Normal sinus rhythm Nonspecific ST abnormality Abnormal ECG When compared with ECG of 05-NOV-2018 06:46, MANUAL COMPARISON REQUIRED, DATA IS UNCONFIRMED Confirmed by VERNELL FERGUSON, TANVIR ([id number]), editorial specialist CJ BACH ([id number]) on 11/15/2018 6:55:49 AM Referred By: Guillermo Park Confirmed By:SELINA MATT MD
--- NOTE | 2018-11-08 17:00 | PCM.PN.REN ---
Patient Problems: Active and Suspected Problems (Last Reviewed 11/03/18 @ 08:23 by Guillermo Park MD) Septic shock (Acute) Acute renal failure (Acute) Severe dehydration (Acute) Lactic acidosis (Acute) Hypoxia (Acute) Bloating (Acute) Subjective: patient is not feeling well. He is complaining of shortness of breath. No chest pain. No nausea no vomiting - Physical Exam General: Alert, Cooperative HEENT: Atraumatic Oral: Moist Mucosa Neck: Supple, No JVD Lungs: - - bilateral rhonchi Abdomen: Bowel Sounds Present, Non-Distended, Distended Extremities: Edema - +2 generalized edema Lymphatic: No Cervical, Supraclavicular, or Inguinal Adenopathy Neurological: Cranial nerves II-XII grossly intact, Neuro grossly intact Vital Signs Temp Pulse Resp BP Pulse Ox 98.1 F 106 H 26 H 123/68 H 94 11/08/18 15:37 11/08/18 15:37 11/08/18 15:37 11/08/18 15:37 11/08/18 15:37 Oxygen Flow Rate (L/min) 3 Oxygen Delivery Method Nasal Cannula Weight: 83.7 kg Body Mass Index (BMI) 27.1 Intake and Output for Last 24 Hours 11/06/18 11/07/18 11/08/18 23:59 23:59 23:59 Intake Total 1805.7 / 2075.7 822.7 / 822.7 121 / 121 Output Total 130 / 130 1590 / 1590 15 / 15 Balance 1675.7 / 1945.7 -767.3 / -767.3 106 / 106 Microbiology Past 72 Hours 11/03/18 10:27 Gram Stain - Final Wound - Sacral Wound Culture - Preliminary Acinetobacter baumannii Meth. resistant Staph. aureus Anaerobic Culture - Final No anaerobic bacteria isolated. 11/03/18 03:07 Blood Culture - Final Blood Culture (Wb) - Anticubital Left GNR lactose refrigeration engine operator 11/03/18 02:55 Blood Culture - Final Blood Culture (Wb) - Anticubital Right Escherichia coli 11/03/18 03:42 Urine Culture - Final Urine Catheter - Louise Meth. resistant Staph. aureus Enterococcus faecalis Medical Necessity - Tobacco Use Smoking Status: Former smoker Assessment/Plan All Active Problems (Last Reviewed 11/03/18 @ 08:23 by Guillermo Park MD) Septic shock (Acute) Acute renal failure (Acute) Severe dehydration (Acute) Lactic acidosis (Acute) Hypoxia (Acute) Bloating (Acute) Fall (Resolved) Rhabdomyolysis (Resolved) BRANDO ATN .Pt is HD dependent. No recovery of kidney function.last hemodialysis November 07 with 1.2 L ultrafiltration. i will arrange for isolated ultrafiltration session today with ultrafiltration goal of 2-3 L Will continue to monitor kidney function recovery hemodialysis accesses right IJ temporary hemodynamic catheter I Will defer tunneled catheter placement until PLT and WBC are better Edema LE UF as tolerated with HD Shock septic resolved levophed off ntibiotics as per the ID service Thrombocytopenia per primary. Renal team will continue to follow Please call if any question at [phone]
[2018-11-08] MEDS: Heparin 10,000 UNITS/10 ML Vial IV (17:47)
--- NOTE | 2018-11-08 18:30 | DIALYSIS ---
IUF x 2.5hours completed today with -2700ml taken off. Stable t/o. Dressing changed to r.neck CVC changed. Heparin to close cvc to each lumen fill volume of 1.3ml only. Report to LACI Palmer at bedside. sitter and visitor remain in room.
[2018-11-08] MEDS: Metoprolol Tartrate 25 MG Tablet PO ×2 (18:37→23:29)
--- NOTE | 2018-11-08 19:17 | ART_ITS ---
Reason For Study: ULCER Procedure A bilateral lower extremity continuous wave Doppler with analog waveform analysis,segmental pressures,and ankle brachial indexes without exercise. Left Segmental Pressures Left brachial= 124mmHg. Left thigh = 137mmHg. Left calf = 102mmHg. Left posterior tibial artery = 105mmHg. Left dorsalis pedis artery = 106mmHg. Left digit = 53 mmHg. The left dorsalis pedis waveforms are biphasic. The left posterior tibial artery waveforms are biphasic. Right Segmental Pressures Right brachial= 123mmHg. Right calf = 102mmHg. Right posterior tibial artery = 98mmHg. Right dorsalis pedis artery = 130mmHg. Right digit = 73 mmHg. The right dorsalis pedis waveforms are biphasic. The right posterior tibial artery waveforms are biphasic. Unable to assess thigh pressures d/t alford cath . Indices The right ankle brachial index by the dorsalis pedis is 1.05. The right ankle brachial index by the posterior tibial artery is .79. The right digital-brachial index is .59. The left ankle brachial index by the dorsalis pedis is .85. The left ankle brachial index by the posterior tibial artery is .85. The left digital-brachial index is .43. Interpretation Summary Biphasic Doppler waveforms are noted at ankle level bilaterally. Pulse-volume recording waveform amplitudes are satisfactory bilaterally, but for the left digital level, which is diminished. The resting right ankle-brachial index is normal, though with evidence of angiosomal distribution disease. The resting left ankle-brachial index is mildly diminished. The right digital-brachial index is mildly diminished. The left digital-brachial index is moderately diminished. There is evidence of mild arterial occlusive disease in the right lower extremity, and mild/moderate arterial occlusive disease in the left lower extremity. Ordering Physician: Abilio Pham Referring Physician: ROLANDO GARCÍA Performed By: HARIKA ROSENBERG RDCS
--- NOTE | 2018-11-08 19:18 | CON.PCM_ITS ---
Reason for Consult Date of Consultation: 11/08/18 Reason for Consultation: Pressure ulcers to heels History of Present Illness: The patient is a 62 year old M with history of ankylosing spondylosis who had a fall in April 2018 resulting in paraplegia, fractured hip and back s/p surgery. Patient's friend/neighbor is at bedside in which history of obtained from patient, patient's friend, and chart review. Relates he developed pressure sores to heels and back while he was admitted in hospital last time. Patient recently became sick found to have septic shock with ecoli bacteremia, BRANDO, and acute on chronic thrombocytopenia. Patient is now on dialysis. Patient is on antibiotics per Infectious Disease. Patient with leukocytosis, temp 97.2F at this time. Podiatry was consulted for further evaluation of heel. Patient's friend patient is estranged from his family, and will likely not visit him. Appears plan is for patient to go to [facility] once discharged from [facility]. 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) Thrombocytopenia (Chronic) Medical History: Medical History (Last Reviewed 11/03/18 @ 08:23 by Guillermo Park MD) EXPLORATORY SURGERY Fracture, ribs S22.39XA 1988 Fractured nose S02.2XXA Hard of hearing H91.90 PARAPLEGIC 05-11-18 Psoriasis L40.9 Testicle cancer C62.90 Chronic neck and back pain M54.2, M54.9, G89.29 Allergies wool Allergy (Severe, Verified 11/03/18 02:40) Other UNABLE TO BREATH NSAIDS (Non-Steroidal Anti-Inflamma Allergy (Verified 11/03/18 02:40) Rash Home Medications: Ambulatory Orders Medication Instructions Recorded Albuterol Aerosols [Ventolin 2.5 mg INHALATION Q6H PRN PRN 11/03/18 Aerosols] Bisacodyl 10 mg RC DAILY PRN PRN 11/03/18 Cholecalciferol (Vitamin D3) 50,000 unit PO GENAO 11/03/18 [Vitamin D] DiphenhydrAMINE [Benadryl] 50 mg PO Q6H PRN 11/03/18 Escitalopram Oxalate 10 mg PO DAILY 11/03/18 Guaifenesin [Mucinex] 600 mg PO BID 11/03/18 Hydrocortisone 1% Crm [Hytone] 1 applic TOPICAL BID 11/03/18 Levofloxacin [Levaquin] 500 mg PO DAILY 11/03/18 Lisinopril [Zestril] 10 mg PO DAILY 11/03/18 Magnesium Hydroxide [Milk Of 30 ml PO DAILY PRN PRN 11/03/18 Magnesia] Methocarbamol 1,500 mg PO TID 11/03/18 Multivitamin [Once Daily] 1 each PO DAILY 11/03/18 Nystatin Powder [Mycostatin Powder] 1 applic TOPICAL DAILY 11/03/18 Omeprazole 20 mg PO DAILY 11/03/18 Tizanidine HCl 4 mg PO Q8H 11/03/18 traMADol [Ultram (G)] 50 mg PO Q6H PRN PRN 11/03/18 Surgical History: Surgical History (Last Reviewed 11/03/18 @ 08:23 by Guillermo Park MD) History of removal of testicle Z90.79 1977 Surgical History: - - Reviewed Lives: Correction Smoking Status: Former smoker Alcohol: None Drugs: None - *Family History Maternal Family History: Family History (Last Reviewed 11/03/18 @ 08:23 by Guillermo Park MD) Mother Diabetes Father Heart disease History Items: No pertinent history Patient Problems: Active and Suspected Problems (Last Reviewed 11/03/18 @ 08:23 by Guillermo Park MD) Septic shock (Acute) Acute renal failure (Acute) Severe dehydration (Acute) Lactic acidosis (Acute) Hypoxia (Acute) Bloating (Acute) - Physical Exam General: Alert, No apparent distress Extremities: Capillary Refill Less than 3 Seconds, No Calf Tenderness, Peripheral Pulses Normal, - - Left heel posterior aspect with pressure ulceration down to deep subcutaneous tissue very close to bone, concern for os teomyelitis, there is combination of dry eschar present along with some noted fibrotic and granular tissue to wound bed, there is no significant cellulitis, no visible abscess, no maloder, no purulence, no fluctuance, no crepitus bilateral foot/ankle. Right heel with unstagable pressure ulcer with no drainage or evidence of infection. Hair present to toes bilateral. No POP or pain on ROM to the foot or ankle bilateral, motor function absent bilateral foot/ankle - chronic. Sensation absent bilateral foot/ankle - chronic. Vital Signs Temp Pulse Resp BP Pulse Ox 97.2 F L 104 H 20 H 124/47 H 93 11/08/18 18:36 11/08/18 18:37 11/08/18 18:36 11/08/18 18:37 11/08/18 18:36 Oxygen Flow Rate (L/min) 3 Oxygen Delivery Method Nasal Cannula Weight: 83.7 kg Body Mass Index (BMI) 27.1 Intake and Output for Last 24 Hours 11/06/18 11/07/18 11/08/18 23:59 23:59 23:59 Intake Total 1805.7 / 2075.7 822.7 / 822.7 628 / 628 Output Total 130 / 130 1590 / 1590 2715 / 2715 Balance 1675.7 / 1945.7 -767.3 / -767.3 -2087 / -2087 Microbiology Past 72 Hours 11/03/18 10:27 Gram Stain - Final Wound - Sacral Wound Culture - Preliminary Acinetobacter baumannii Meth. resistant Staph. aureus Anaerobic Culture - Final No anaerobic bacteria isolated. 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 resistant Staph. aureus Enterococcus faecalis Assessment/Plan All Active Problems (Last Reviewed 11/03/18 @ 08:23 by Guillermo Park MD) Septic shock (Acute) Acute renal failure (Acute) Severe dehydration (Acute) Lactic acidosis (Acute) Hypoxia (Acute) Bloating (Acute) Fall (Resolved) Rhabdomyolysis (Resolved) Bilateral pressure ulcerations posterior heel Right unstagable Left heel ulceration down to deep subcutaneous tissue concern for osteomyelitis Reviewed diagnostic data. Reviewed left foot xrays which although report does not state osteomyelitis there is osteolucency and bone changes to the posterior calcaneus along with clinical findings c/w osteomyelitis (likely chronic) - an MRI was ordered for further evaluation. A culture was obtained and sent to microbiology for further evaluation. Also noninvasive lower extremity arterial studies were ordered bilateral lower extremity. We will check MRI as noted, further debridement will be further considered pending MRI results and vascular studies along with overall health status. No emergent foot/ankle surger needed at this time. Continue with antibiotic therapy per ID service, along with follow culture results. Also right foot xrays were ordered for further evaluation of right foot. Continue with wound care to [facility] with overlying gauze dressing. Keep bilateral heels offloaded at all times. Podiatry will continue to follow. Thank you for consultation.
[2018-11-09] VITALS (18 sets, daily range): BP systolic 108–139; BP diastolic 47–73; PULSE 77–98; RESP 18–28; TEMP 36.3–36.6; O2SAT 81–99
[2018-11-09] MEDS: 0.9% NaCl Peripheral Flush Adult/Peds IV ×3 (05:59→20:13)
--- NOTE | 2018-11-09 06:18 | PN_ITS ---
Patient Problems: Active and Suspected Problems (Last Reviewed 11/03/18 @ 08:23 by Guillermo Park MD) Septic shock (Acute) Acute renal failure (Acute) Severe dehydration (Acute) Lactic acidosis (Acute) Hypoxia (Acute) Bloating (Acute) Subjective: This 62-year-old male who was admitted for septic shock and medical history is complicated with renal failure, thrombocytopenia, and lower extremity paralysis was seen bedside for bilateral heel ulcers this morning. He denies fever, chill, nausea, vomiting. He denies pain. He is resting comfortably. - Physical Exam General: Alert, Oriented x3, Cooperative HEENT: Atraumatic Extremities: Capillary Refill Less than 3 Seconds - All digits bilateral, No Calf Tenderness - Negative Ventura sign bilateral, Diminished Peripheral Pulses, - - Lack of motor function bilateral lower extremities with heel cord contractions Skin: Ulcer/ Wound - Well adhered dry eschar posterior right heel with no deep tissue exposure, erythema, streaking, odor, purulence or infection. The left heel ulcer is also with an eschar and fibrous base and appears to involve deeper tissues with no directly visualized bone. The left foot has some pierce-ulcer site inflammation but no distinct streaking, purulence, or odor. There is no fluctuance or bogginess on palpation bilateral lower extremities. Bilateral lower extremity's compartments remain soft to palpate. There is no interdigital maceration bilateral. Musculoskeletal: No Tenderness to Palpation of Joints or Extremities, Muscle Wasting Neurological: - - Lack of normal epicritic sensation to light touch bilateral lower extremities Psych/Mental Status: Normal Affect, Appropriate Vital Signs Temp Pulse Resp BP Pulse Ox 97.9 F 81 24 H 134/65 H 97 11/09/18 05:36 11/09/18 05:36 11/09/18 05:36 11/09/18 05:36 11/09/18 05:36 Oxygen Flow Rate (L/min) 3 Oxygen Delivery Method Nasal Cannula Weight: 81 kg Body Mass Index (BMI) 27.1 Intake and Output for Last 24 Hours 11/07/18 11/08/18 11/09/18 23:59 23:59 23:59 Intake Total 822.7 / 822.7 710.9 / 710.9 70.4 / 70.4 Output Total 1590 / 1590 3345 / 3345 Balance -767.3 / -767.3 -2634.1 / -2634.1 70.4 / 70.4 Microbiology Past 72 Hours 11/03/18 10:27 Gram Stain - Final Wound - Sacral Wound Culture - Preliminary Acinetobacter baumannii Meth. resistant Staph. aureus Anaerobic Culture - Final No anaerobic bacteria isolated. 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 resistant Staph. aureus Enterococcus faecalis Laboratory Tests Past 24 Hrs 11/09/18 11/09/18 11/09/18 06:00 06:00 06:00 WBC Pending RBC Pending Hgb Pending Hct Pending MCV Pending MCH Pending MCHC Pending RDW Pending RDW Differential Pending Plt Count Pending Neut % (Auto) Pending Absolute Neuts (auto) Pending Total Counted Pending Sodium Pending Potassium Pending Chloride Pending Carbon Dioxide Pending Anion Gap Pending BUN Pending Creatinine Pending Est GFR (MDRD) Af Amer Pending Est GFR (MDRD) Non-Af Pending BUN/Creatinine Ratio Pending Glucose Pending Calcium Pending Random Vancomycin Pending Medical Necessity - Tobacco Use Smoking Status: Former smoker Assessment/Plan All Active Problems (Last Reviewed 11/03/18 @ 08:23 by Guillermo Park MD) Septic shock (Acute) Acute renal failure (Acute) Severe dehydration (Acute) Lactic acidosis (Acute) Hypoxia (Acute) Bloating (Acute) Fall (Resolved) Rhabdomyolysis (Resolved) Bilateral pressure ulcerations posterior heel Right unstageable Left heel ulceration down to deep subcutaneous tissue and part of this is also unstageable; concern for osteomyelitis Lower extremity paralysis Septic shock with multiple sources of infection including E. coli bacteremia, MRSA positive sacral and MDR single bacteria infection, urinary tract infection with enterococcus and MRSA Delayed healing Malnutrition suspected I discussed and reviewed his case and is diagnostic data. White blood cell count is elevated to 17.1 this morning. He remains afebrile and his vital signs are relatively stable. Also right foot xrays were ordered and this is pending. I reviewed left foot xrays which although report does not state osteomyelitis there is osteolucency and bone changes to the posterior calcaneus along with clinical findings c/w osteomyelitis (likely chronic) - an MRI was ordered for further evaluation. A left heel wound culture was obtained and sent to microbiology for further evaluation; pending. Also noninvasive lower extremity arterial studies were ordered bilateral lower extremity; pending. We will check MRI as noted, further debridement will be further considered pending MRI results and vascular studies along with overall health status. This test is still pending. No emergent foot/ankle surgery needed at this time. Continue with antibiotic therapy per ID service, along with follow culture results. He is currently on vancomycin and Zosyn and susceptibility testing is pending for minocycline and colistin is pending. I recommend nutritional supplementation to optimize healing such as Mac. Continue with wound care to heel -Santyl was ordered for bilateral application. Keep bilateral heels offloaded at all times. Medical management per primary team and infectious disease management is greatly appreciated. I will continue to follow him while in-house closely. Elsie Cook DPM, [facility] [phone]
[2018-11-09 06:41] LABS: Anion Gap 14 (5-15); BUN 65 mg/dL (7-18); BUN/Creat Ratio 14.8 RATIO (10-20); Calcium,Total 8.6 mg/dL (8.5-10.1); Chloride 100 mmol/L (98-107); Creatinine, Serum 4.38 mg/dL (0.70-1.30); EST Glomerular Filtration Rate 15 mL/min (>60); Est Glom Filt Rate - Afr Amer 18 mL/min (>60); Estimated Creatinine Clearance 17.13 ml/min; Glucose 78 mg/dL (74-106); Potassium 4.2 mmol/L (3.5-5.1); Sodium Level 139 mmol/L (136-145)
[2018-11-09 06:53] LABS: Absolute Lymphocyte Count 1.06 X10^3/ul (0.83-4.51); Absolute Neutrophil Count 14.2 X10^3/uL (2.0-7.7); Basophil# 0.02 X10^3/uL; Basophil% 0.1 % (0-1); Eosinophil# 0.06 X10^3/uL; Eosinophils% 0.4 % (0-5); Hematocrit 30.3 % (40-54); Lymphocyte # 1.06 X10^3/ul (4.0); Lymphocyte % 6.2 % (19-41); Mean Corpuscular Hgb 25.3 pg (27.0-32.0); Mean Corpuscular Volume 76.7 fL (80-94); Monocyte# 1.71 X10^3/uL; Neutrophil # 14.19 X10^3/uL (2.7-7.7); Neutrophil % 83.1 % (47-70); RBC Distribution Width CV 18.3 % (11.6-14.6); RBC Distribution Width SD 51.7 fl (35.1-43.9); Red Blood Count 3.95 M/mm3 (4.6-6.2); White Blood Count 17.1 K/mm3 (4.4-11.0)
[2018-11-09 06:56] LABS: Differential Indicated SCAN CRITERIA MET; POSITIVE COUNT YES; POSITIVE DIFFERENTIAL YES; POSITIVE MORPHOLOGY YES; Platelet Count 42 K/mm3 (150-450)
[2018-11-09 07:11] LABS: Vancomycin, Random Level 14.5 ug/mL (0.0-15.0)
[2018-11-09 07:20] LABS: Differential Comment SCAN; Platelet Estimate MKD DEC (ADEQ)
--- NOTE | 2018-11-09 08:01 | PCM.RX.CS ---
Consult Pharmacy has been consulted to manage selected antiobiotic: Vancomycin Type of Consult: Follow-up Suspected Infection: Other Prior Doses of Antibiotics Received/Current Regimen: Received 500mg iv x 1 on 11.05.18. Labs: Sodium 139 mmol/L (136-145) 11/09/18 06:00 Potassium 4.2 mmol/L (3.5-5.1) 11/09/18 06:00 Chloride 100 mmol/L (98-107) 11/09/18 06:00 Carbon Dioxide 25.0 mmol/L (21.0-32.0) 11/09/18 06:00 14 (5-15) 11/09/18 06:00 BUN 65 mg/dL (7-18) H 11/09/18 06:00 4.38 mg/dL (0.70-1.30) H 11/09/18 06:00 Est GFR (MDRD) Af Amer 18 mL/min (>60) L 11/09/18 06:00 Est GFR (MDRD) Non-Af 15 mL/min (>60) L 11/09/18 06:00 14.8 RATIO (10-20) 11/09/18 06:00 Glucose 78 mg/dL (74-106) 11/09/18 06:00 Vancomycin Trough 22.3 ug/mL (5.0-15.0) H 11/06/18 06:20 Random Vancomycin 14.5 ug/mL (0.0-15.0) 11/09/18 06:00 Microbiology: Microbiology 11/03/18 10:27 Wound - Sacral Gram Stain - Final 11/03/18 10:27 Wound - Sacral Wound Culture - Preliminary Acinetobacter baumannii Meth. resistant Staph. aureus 11/03/18 10:27 Wound - Sacral Anaerobic Culture - Final No anaerobic bacteria isolated. 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 resistant Staph. aureus Enterococcus faecalis 11/03/18 07:43 Swab (Method) Nasal Screen MRSA/MSSA - Final Weight used for dosin kg Estimated Creatinine Clearance: ~17 ml/min Goal Trough: 15-20 mcg/mL Pharmacy Plan for Drug Dosing: Patient's vancomycin level has trended down now to 14.5 (goal range 15-20 mcg/ml) as reported with level from 6.19.19 @0600. Will redose with 500mg iv x 1 after dialysis today. Pharmacy Service will continue to monitor and adjust dosing as required. Follow-Up Labs: Trough Other - random level 6.21.19 @0600
[2018-11-09] MEDS: Metoprolol Tartrate 25 MG Tablet PO ×2 (10:14→23:44)
[2018-11-09] MEDS: Amiodarone 200 MG Tablet PO ×2 (10:16→21:35)
[2018-11-09] MEDS: Pantoprazole Sodium 20 MG Tablet PO (10:16)
[2018-11-09] MEDS: guaiFENesin 600 MG Tablet PO ×2 (10:16→21:36)
[2018-11-09] MEDS: Polyethylene Glycol 3350 17 GM PACKET PO ×2 (10:16→21:36)
[2018-11-09] MEDS: Nystatin Powder 15gm Bottle 1 APPLIC TOPICAL (10:17)
--- NOTE | 2018-11-09 10:24 | PN_ITS ---
Patient Problems: Active and Suspected Problems (Last Reviewed 11/03/18 @ 08:23 by Guillermo Park MD) Septic shock (Acute) Acute renal failure (Acute) Severe dehydration (Acute) Lactic acidosis (Acute) Hypoxia (Acute) Bloating (Acute) Subjective: The patient was seen and examined at the bedside this morning. Events from the last 24 hours have been reviewed. The patient is currently afebrile, hemodynamically stable and maintaining appropriate oxygen saturations on 2 L/min via nasal cannula. Objective: The patient's most recent lab work, culture data and imaging studies have all been personally reviewed. Blood culture dated November 03 was positive for E. coli. Urine culture dated November 03 was positive for MRSA and Enterococcus faecalis. Sacral wound culture was positive for Acinetobacter and staph aureus. - Physical Exam General: Alert, Cooperative, No apparent distress HEENT: Atraumatic, PERRLA, Normocephalic Oral: No Gingival or Mucosal Lesions/ Ulcerations Neck: Supple, No Nodes, Trachea Midline Lungs: No rhonchi, No wheeze, No rales, Diminished Cardiovascular: Regular rate, Regular Rhythm, Normal S1, Normal S2 Abdomen: Bowel Sounds Present, Soft, Non Tender Extremities: No clubbing, No cyanosis Skin: - - No change from previous Musculoskeletal: No Muscle Wasting Lymphatic: No Cervical, Supraclavicular, or Inguinal Adenopathy Neurological: Neuro grossly intact Psych/Mental Status: Flat Affect Vital Signs Temp Pulse Resp BP Pulse Ox 97.8 F 78 18 111/64 99 11/09/18 10:18 11/09/18 10:18 11/09/18 10:18 11/09/18 10:18 11/09/18 10:18 Oxygen Flow Rate (L/min) 2 Oxygen Delivery Method Nasal Cannula Weight: 178 lb 9.191 oz Body Mass Index (BMI) 27.1 Intake and Output for Last 24 Hours 11/07/18 11/08/18 11/09/18 23:59 23:59 23:59 Intake Total 822.7 / 822.7 710.9 / 710.9 70.4 / 70.4 Output Total 1590 / 1590 3345 / 3345 Balance -767.3 / -767.3 -2634.1 / -2634.1 70.4 / 70.4 Microbiology Past 72 Hours 11/03/18 10:27 Gram Stain - Final Wound - Sacral Wound Culture - Preliminary Acinetobacter baumannii Meth. resistant Staph. aureus Anaerobic Culture - Final No anaerobic bacteria isolated. 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 resistant Staph. aureus Enterococcus faecalis Laboratory Tests Past 24 Hrs 11/09/18 11/09/18 11/09/18 06:00 06:00 06:00 WBC 17.1 H RBC 3.95 L Hgb 10.0 L Hct 30.3 L MCV 76.7 L MCH 25.3 L MCHC 33.0 RDW 18.3 H RDW Differential 51.7 H Plt Count 42 L* Immature Gran % (Auto) 0.200 Neut % (Auto) 83.1 H Lymph % (Auto) 6.2 L Graham % (Auto) 10.0 Eos % (Auto) 0.4 Baso % (Auto) 0.1 Absolute Neuts (auto) 14.2 H Absolute Lymphs (auto) 1.06 Total Counted Not Reportable Differential Comment SCAN Diff Path Review May foll Platelet Estimate MKD DEC Sodium 139 Potassium 4.2 Chloride 100 Carbon Dioxide 25.0 Anion Gap 14 BUN 65 H Creatinine 4.38 H Estim Creat Clear Calc 17.13 Est GFR (MDRD) Af Amer 18 L Est GFR (MDRD) Non-Af 15 L BUN/Creatinine Ratio 14.8 Glucose 78 Calcium 8.6 Random Vancomycin 14.5 Clinical Impression(s) from Imaging Studies Chest X-Ray 11/03/18 03:03 IMPRESSION: Minimal fluid tracking in the right minor fissure. Interval posterior thoracic spinal fixation. No focal lung consolidative changes. Electronically Signed: Azar Marino, at 3:41 EDT Tel , Service support , Abdomen/Pelvis CT 11/03/18 04:09 IMPRESSION: Negative unenhanced CT of the abdomen and pelvis for acute abnormality Nonobstructive right renal pelvic calculus. Moderate retained stool within the colon and rectum. Correlate for constipation. Cholelithiasis. Louise catheter drainage of the urinary bladder. Electronically Signed: Azar Gaticaassen, at 5:14 EDT Tel , Service support , KUB X-Ray 11/03/18 10:19 IMPRESSION: Nonspecific bowel gas pattern. Electronically Signed: Venkata Franklin, at 14:59 EDT , Service support , Lumbar Spine MRI 11/03/18 10:19 IMPRESSION: Again seen is ankylosing spondylitis as described above, unchanged since prior exams. No focal collection or abscess. Stable chronic findings are described above. No significant degenerative disease. Electronically Signed: Kevyn Solis, at 13:38 EDT Tel , Service support , Chest X-Ray 11/04/18 14:12 IMPRESSION: The tip of the right dialysis catheter is at the junction of the superior vena cava and right atrium. Progressive right upper lobe infiltrate with increased markings at the left lung base. Electronically Signed: Venkata Franklin, at 15:08 EDT , Service support , Foot X-Ray 11/07/18 13:01 IMPRESSION: Demineralization of the osseous structures with polyarticular arthrosis. No demonstrated fracture, please see discussion above Electronically Signed: Hector Pineda MD at 14:47 EDT , Service support , Medical Necessity - Tobacco Use Smoking Status: Former smoker Assessment/Plan All Active Problems (Last Reviewed 11/03/18 @ 08:23 by Guillermo Park MD) Septic shock (Acute) Acute renal failure (Acute) Severe dehydration (Acute) Lactic acidosis (Acute) Hypoxia (Acute) Bloating (Acute) Fall (Resolved) Rhabdomyolysis (Resolved) RECOMMENDATIONS: 1. Continue antibiotics per ID recommendations. 2. Continue to monitor platelet count daily. No indication for transfusion at this time. 3. Continue hemodialysis per nephrology recommendations. 4. Wean supplemental oxygen as tolerated. Encourage incentive spirometer use. IMPRESSIONS: 1. Polymicrobial septic shock The patient was initially noted to have evidence of gram-negative bacteremia with wound cultures also positive for Acinetobacter and MRSA. He is currently on appropriate broad-spectrum antimicrobials. Infectious diseases is following to assist with management of antimicrobials. Continue local wound care. 2. Acute kidney injury secondary to #1 The patient's acute kidney injury was felt to be secondary to ATN from septic shock. Nephrology is currently following. Continue hemodialysis support per their recommendations. 3. Thrombocytopenia This reportedly is chronic. We will continue with monitoring for bleeding complications. There is no evidence of overt signs of blood loss. There is no indication for transfusion of platelets at this time. 4. Atrial fibrillation with rapid ventricular rate The patient did develop atrial fibrillation during his hospitalization. He did respond favorably to the use of amiodarone. This will be continued accordingly. 5. Ankylosing spondylitis/paraplegia/neurogenic bladder with chronic indwelling Louise/psoriasis/debility/decubitus ulcers Complicates care, management, recovery and prognosis. Continue local wound care. This note was generated with [employer] dictation software. It may contain incorrect words, spelling, and punctuation that were not noted in checking the note before signing. DISPOSITION: Given the patient's lack of further ICU needs, will sign off. Please call with any additional questions. Code Visit Inpatient E&M: 24700 [facility] L2
--- NOTE | 2018-11-09 11:28 | CASEMGMT ---
Addendum entered by Elsi Mata 11/09/18 14:33: Dr Lancaster PN faxed to [facility]. [facility] requesting Hep C Surface antibodies to be drawn. Results to be faxed to [facility] once they are in. Addendum entered by Elsi Mata 11/09/18 12:12: Faxed updated clinicals to [facility] at this time. Call placed to [facility] and msg left on her providing her w/RN CM, Estefania Zabala's phone number, as she will be RN CM after today. Original Note: LACI ACKERMAN NOTE: Call received from [facility]. She states they are still awaiting on pre-cert from Insurance. Anthony PATEL RN CM
--- NOTE | 2018-11-09 13:00 | PCM.PN.ID ---
Patient Problems: Active and Suspected Problems (Last Reviewed 11/03/18 @ 08:23 by Guillermo Park MD) Septic shock (Acute) Acute renal failure (Acute) Severe dehydration (Acute) Lactic acidosis (Acute) Hypoxia (Acute) Bloating (Acute) Subjective: Feeling ok, no fever, friend at bedside. - Physical Exam General: Alert, Cooperative, No apparent distress Lungs: Clear to auscultation, Normal air movement Cardiovascular: Regular rate, Regular Rhythm Abdomen: Soft, Non Tender, Distended Extremities: Edema Skin: Ulcer/ Wound Vital Signs Temp Pulse Resp BP Pulse Ox 97.8 F 78 18 111/64 99 11/09/18 10:18 11/09/18 10:18 11/09/18 10:18 11/09/18 10:18 11/09/18 10:18 Oxygen Flow Rate (L/min) 2 Oxygen Delivery Method Nasal Cannula Weight: 81 kg Body Mass Index (BMI) 27.1 Intake and Output for Last 24 Hours 11/07/18 11/08/18 11/09/18 23:59 23:59 23:59 Intake Total 822.7 / 822.7 710.9 / 710.9 70.4 / 70.4 Output Total 1590 / 1590 3345 / 3345 Balance -767.3 / -767.3 -2634.1 / -2634.1 70.4 / 70.4 Microbiology Past 72 Hours 11/08/18 19:00 Gram Stain - Final Ulcer, Decubitus - Left Foot Wound Culture - Preliminary 11/03/18 10:27 Gram Stain - Final Wound - Sacral Wound Culture - Preliminary Acinetobacter baumannii Meth. resistant Staph. aureus Anaerobic Culture - Final No anaerobic bacteria isolated. 11/03/18 03:07 Blood Culture - Final Blood Culture (Wb) - Anticubital Left GNR lactose supervisor volunteer services 11/03/18 02:55 Blood Culture - Final Blood Culture (Wb) - Anticubital Right Escherichia coli Laboratory Tests Past 24 Hrs 11/09/18 11/09/18 11/09/18 06:00 06:00 06:00 WBC 17.1 H RBC 3.95 L Hgb 10.0 L Hct 30.3 L MCV 76.7 L MCH 25.3 L MCHC 33.0 RDW 18.3 H RDW Differential 51.7 H Plt Count 42 L* Immature Gran % (Auto) 0.200 Neut % (Auto) 83.1 H Lymph % (Auto) 6.2 L Haines % (Auto) 10.0 Eos % (Auto) 0.4 Baso % (Auto) 0.1 Absolute Neuts (auto) 14.2 H Absolute Lymphs (auto) 1.06 Total Counted Not Reportable Differential Comment SCAN Diff Path Review May foll Platelet Estimate MKD DEC Sodium 139 Potassium 4.2 Chloride 100 Carbon Dioxide 25.0 Anion Gap 14 BUN 65 H Creatinine 4.38 H Estim Creat Clear Calc 17.13 Est GFR (MDRD) Af Amer 18 L Est GFR (MDRD) Non-Af 15 L BUN/Creatinine Ratio 14.8 Glucose 78 Calcium 8.6 Random Vancomycin 14.5 Medical Necessity - Tobacco Use Smoking Status: Former smoker Route of nutrition/ use of supplements: [] Nutritional Intake: [] IV Site: [] Alford Catheter: [] - Assessment/Plan Antibiotics: [] Assessment/Plan: [] Active and Suspected Problems (Last Reviewed 11/03/18 @ 08:23 by Guillermo Park MD) Septic shock (Acute) Acute renal failure (Acute) Severe dehydration (Acute) Lactic acidosis (Acute) Hypoxia (Acute) Bloating (Acute) septic shock with ecoli bacteremia, BRANDO, and acute on chronic thrombocytopenia - overall improved on vanc/zosyn. Remains on HD now. Ucx with enterococcus and MRSA; has chronic alford. Sacral wound cx with MRSA and MDR Acinetobacter. L heel with large area of necrosis. CT abd/pelvis did not show osteo or abscess. Wound care following. The AcB may be a colonizer given his improvement without coverage. Have requested minocycline and colistin susc testing. MRI of L heel shows osteo, appreciate podiatry eval. Plan at this point will be for 6 weeks of iv vanc and cefepime, dosed with HD (cefepime will be 2gm on Mon, 2gm on Wed, 3gm on Fri) as well as po flagyl. Platelets improved today. Will follow, d/w Dr. Lawton and upper caser.
--- NOTE | 2018-11-09 13:22 | CASEMGMT ---
LACI ACKERMAN NOTE: Pt's HPOA, Cristine, in room with pt at this time. She was made aware [facility] are able to accept pt, but pre-cert from insurance is still pending and still awaiting medical clearance. She voiced appreciation for the update. Anthony PATEL RN, CM
--- NOTE | 2018-11-09 14:22 | RAD_ITS ---
STUDY: X-RAY - RIGHT FOOT CLINICAL: Male, 62 years old. Pressure ulcer TECHNIQUE: 3 view(s) of the foot. COMPARISON: None. FINDINGS: There is no evidence of fracture or dislocation. The patient is osteopenic. There are moderate degenerative changes. There are no definite radiographic findings of osteomyelitis. There are no radiodense foreign bodies. RAD/Foot min 3 Views IMPRESSION: Osteopenia. No fracture or dislocation. Moderate degenerative change. No definite radiographic findings of osteomyelitis. Electronically Signed: Rios Jeffries, at 14:50 EDT Tel , Service support ,
[2018-11-09] MEDS: traMADol 50 MG Tablet PO (14:30)
[2018-11-09] MEDS: Collagenase 30gm Tube 1 APPLIC TOPICAL (14:31)
[2018-11-09] MEDS: Hydrocortisone 2.5% Crm 1 APPLIC TOPICAL ×2 (14:31→21:37)
[2018-11-09] MEDS: metroNIDAZOLE 500 MG Tablet PO ×2 (15:00→21:35)
--- NOTE | 2018-11-09 15:14 | PN.RENAL_ITS ---
Patient Problems: Active and Suspected Problems (Last Reviewed 11/03/18 @ 08:23 by Guillermo Park MD) Septic shock (Acute) Acute renal failure (Acute) Severe dehydration (Acute) Lactic acidosis (Acute) Hypoxia (Acute) Bloating (Acute) Subjective: no fevers no SOB stable - Physical Exam Vital Signs Temp Pulse Resp BP Pulse Ox 97.8 F 82 18 111/64 99 11/09/18 10:18 11/09/18 12:35 11/09/18 10:18 11/09/18 10:18 11/09/18 10:18 Oxygen Flow Rate (L/min) 2 Oxygen Delivery Method Nasal Cannula Weight: 81 kg Body Mass Index (BMI) 27.1 Intake and Output for Last 24 Hours 11/07/18 11/08/18 11/09/18 23:59 23:59 23:59 Intake Total 822.7 / 822.7 710.9 / 710.9 70.4 / 70.4 Output Total 1590 / 1590 3345 / 3345 Balance -767.3 / -767.3 -2634.1 / -2634.1 70.4 / 70.4 Microbiology Past 72 Hours 11/08/18 19:00 Gram Stain - Final Ulcer, Decubitus - Left Foot Wound Culture - Preliminary 11/03/18 10:27 Gram Stain - Final Wound - Sacral Wound Culture - Preliminary Acinetobacter baumannii Meth. resistant Staph. aureus Anaerobic Culture - Final No anaerobic bacteria isolated. 11/03/18 03:07 Blood Culture - Final Blood Culture (Wb) - Anticubital Left GNR lactose patient registration supervisor 11/03/18 02:55 Blood Culture - Final Blood Culture (Wb) - Anticubital Right Escherichia coli Laboratory Tests Past 24 Hrs 11/09/18 11/09/18 11/09/18 06:00 06:00 06:00 WBC 17.1 H RBC 3.95 L Hgb 10.0 L Hct 30.3 L MCV 76.7 L MCH 25.3 L MCHC 33.0 RDW 18.3 H RDW Differential 51.7 H Plt Count 42 L* Immature Gran % (Auto) 0.200 Neut % (Auto) 83.1 H Lymph % (Auto) 6.2 L [place] % (Auto) 10.0 Eos % (Auto) 0.4 Baso % (Auto) 0.1 Absolute Neuts (auto) 14.2 H Absolute Lymphs (auto) 1.06 Total Counted Not Reportable Differential Comment SCAN Diff Path Review May foll Platelet Estimate MKD DEC Sodium 139 Potassium 4.2 Chloride 100 Carbon Dioxide 25.0 Anion Gap 14 BUN 65 H Creatinine 4.38 H Estim Creat Clear Calc 17.13 Est GFR (MDRD) Af Amer 18 L Est GFR (MDRD) Non-Af 15 L BUN/Creatinine Ratio 14.8 Glucose 78 Calcium 8.6 Random Vancomycin 14.5 Medical Necessity - Tobacco Use Smoking Status: Former smoker Assessment/Plan All Active Problems (Last Reviewed 11/03/18 @ 08:23 by Guillermo Park MD) Septic shock (Acute) Acute renal failure (Acute) Severe dehydration (Acute) Lactic acidosis (Acute) Hypoxia (Acute) Bloating (Acute) Fall (Resolved) Rhabdomyolysis (Resolved) BRANDO ATN .Pt is HD dependent. No recovery of kidney function.HD today 1.2 L ultrafiltration. i will arrange for isolated ultrafiltration session today with ultrafiltration goal of 2-3 L Will continue to monitor kidney function recovery hemodialysis accesses right IJ temporary hemodynamic catheter I Will defer tunneled catheter placement until PLT and WBC are better Edema LE UF as tolerated with HD Shock septic resolved levophed off ntibiotics as per the ID service
--- NOTE | 2018-11-09 15:30 | PN_ITS ---
Patient Problems: Active and Suspected Problems (Last Reviewed 11/03/18 @ 08:23 by Guillermo Park MD) Septic shock (Acute) Acute renal failure (Acute) Severe dehydration (Acute) Lactic acidosis (Acute) Hypoxia (Acute) Bloating (Acute) Subjective: Patient is more lethargic today. Patient was more quiet. On hemodialysis. Fecal management system. Overall clinical updates was given to patient's power of admitted attorneys Ms. Cristine Rico. We want to maintain CODE STATUS DNR CC arrest. Vitals/I&O's: Vital Signs Temp Pulse Resp BP Pulse Ox 97.8 F 82 18 111/64 99 11/09/18 10:18 11/09/18 12:35 11/09/18 10:18 11/09/18 10:18 11/09/18 10:18 Oxygen Flow Rate (L/min) 2 Oxygen Delivery Method Nasal Cannula Weight: 178 lb 9.191 oz Body Mass Index (BMI) 27.1 Intake and Output for Last 24 Hours 11/07/18 11/08/18 11/09/18 23:59 23:59 23:59 Intake Total 822.7 / 822.7 710.9 / 710.9 70.4 / 70.4 Output Total 1590 / 1590 3345 / 3345 Balance -767.3 / -767.3 -2634.1 / -2634.1 70.4 / 70.4 General: Confused, Disoriented, Lethargic HEENT: Atraumatic, PERRLA, EOMI, Normocephalic Oral: Dry Mucosa Neck: Supple, No JVD, Negative Carotid Bruits Lungs: Diminished - Air entry is diminished on both side., Rhonchi, - - Difficult to clear throat and weak cough reflex Cardiovascular: Regular rate, No murmurs Abdomen: Bowel Sounds Present, Soft, Non Tender, Non-Distended Extremities: Edema Musculoskeletal: Arthritic Changes, Muscle Wasting, - - Paraplegic down the waist level Neurological: - - DTR hyporeflexic. Paraplegic. Urinary incontinence and fecal incontinence. Microbiology Past 72 Hours 11/08/18 19:00 Ulcer, Decubitus - Left Foot Gram Stain - Final 11/08/18 19:00 Ulcer, Decubitus - Left Foot Wound Culture - Preliminary 11/03/18 10:27 Wound - Sacral Gram Stain - Final 11/03/18 10:27 Wound - Sacral Wound Culture - Preliminary Acinetobacter baumannii Meth. resistant Staph. aureus 11/03/18 10:27 Wound - Sacral Anaerobic Culture - Final No anaerobic bacteria isolated. 11/03/18 03:07 Blood Culture (Wb) - Anticubital Left Blood Culture - Final GNR lactose puttier 11/03/18 02:55 Blood Culture (Wb) - Anticubital Right Blood Culture - Final Escherichia coli Laboratory Results 11/04/18 17:09: Hep Bs Antigen Negative, Hep Bs Antibody Non Reactive, Hep B Core IgM Ab Negative, Hepatitis C Ab (EIA) Pending 11/09/18 06:00: Random Vancomycin 14.5 11/09/18 06:00: WBC 17.1 H, RBC 3.95 L, Hgb 10.0 L, Hct 30.3 L, MCV 76.7 L, MCH 25.3 L, MCHC 33.0, RDW 18.3 H, RDW Differential 51.7 H, Plt Count 42 L*, Immature Gran % (Auto) 0.200, Neut % (Auto) 83.1 H, Lymph % (Auto) 6.2 L, Nance % (Auto) 10.0, Eos % (Auto) 0.4, Baso % (Auto) 0.1, Absolute Neuts (auto) 14.2 H, Absolute Lymphs (auto) 1.06, Total Counted Not Reportable, Differential Comment SCAN, Diff Path Review September, Platelet Estimate MKD 11/09/18 06:00: Sodium 139, Potassium 4.2, Chloride 100, Carbon Dioxide 25.0, Anion Gap 14, BUN 65 H, Creatinine 4.38 H, Estim Creat Clear Calc 17.13, Est GFR (MDRD) Af Amer 18 L, Est GFR (MDRD) Non-Af 15 L, BUN/Creatinine Ratio 14.8, Glucose 78, Calcium 8.6 Current Medications Acetaminophen (Tylenol) 650 mg PO Q6H PRN PRN PRN Reason: Mild pain 1-3/Temp > 100.7 F Last Admin: 11/05/18 02:38 Dose: 650 mg Documented by: Albuterol Sulfate (Ventolin Aerosols) 2.5 mg INHALATION Q2H PRN PRN PRN Reason: SOB/Wheezing Amiodarone HCl (Cordarone) 200 mg PO BID DAX Last Admin: 11/09/18 10:16 Dose: 200 mg Documented by: Bisacodyl (Dulcolax) 10 mg RECTAL DAILY PRN PRN PRN Reason: CONSTIPATION Last Admin: 11/04/18 07:07 Dose: 10 mg Documented by: Calamine/Phenol (Calmoseptine Ointment) 1 applic TOPICAL TID PRN; Protocol PRN Reason: TOPICAL IRRITATIONS Chlorhexidine Gluconate () 1 each TOPICAL DAILY [facility] Last Admin: 11/09/18 10:17 Dose: Not Given Documented by: Collagenase (Santyl) 1 applic TOPICAL DAILY [facility]; Protocol Last Admin: 11/09/18 14:31 Dose: 1 applicatio Documented by: Dextrose (D50w Syringe) 0 gm IV X1 PRN; Protocol PRN Reason: Hypoglycemia Diphenhydramine HCl (Benadryl) 50 mg PO Q6H PRN PRN Reason: ITCHING Ergocalciferol (Vitamin D) 50,000 unit PO Gupta [facility] Last Admin: 11/06/18 10:04 Dose: 50,000 unit Documented by: Fentanyl Citrate (Sublimaze (100mcg Ampule)) 50 mcg IV Q2H PRN PRN PRN Reason: PAIN Last Admin: 11/07/18 15:31 Dose: 50 mcg Documented by: Glucagon () 1 mg IM .X1 PRN PRN Reason: Hypoglycemia Guaifenesin (Mucinex) 600 mg PO BID [facility] Last Admin: 11/09/18 10:16 Dose: 600 mg Documented by: Haloperidol Lactate (Haldol) 2 mg IV Q4H PRN PRN PRN Reason: AGITATION Last Admin: 11/08/18 13:59 Dose: 2 mg Documented by: Heparin Sodium (Porcine) () 2,500 units IV UD PRN PRN Reason: HEPARIN FLUSH Hydrocortisone (Hytone) 1 applic TOPICAL BID [facility] Last Admin: 11/09/18 14:31 Dose: 1 applicatio Documented by: Vancomycin IV Pharmacy to Dose (1 ea/ Sodium Chloride) 500 mls @ 250 mls/hr IV X1 PRN; Protocol PRN Reason: Rx to Dose Sodium Chloride () 250 mls @ 15 mls/hr IV .[id number] PRN PRN Reason: SALINE FLUSH Last Admin: 11/06/18 14:00 Dose: 15 mls/hr Documented by: Vancomycin HCl () 500 mg in 100 mls @ 100 mls/hr IV X1 ONE Stop: 11/09/18 16:59 Cefepime HCl 1 gm/ Sodium (Chloride) 50 mls @ 100 mls/hr IV Q24 [facility] Magnesium Hydroxide (Milk Of Magnesia) 30 ml PO DAILY PRN PRN PRN Reason: Constipation Metoprolol Tartrate (Lopressor (Beta [place])) 25 mg PO BID [facility] Last Admin: 11/09/18 10:14 Dose: 25 mg Documented by: Metronidazole (Flagyl) 500 mg PO TID [facility] Last Admin: 11/09/18 15:00 Dose: 500 mg Documented by: Nutritional Formula (Mac - [place] Fl[facility]) [facility] Nystatin (Mycostatin Powder) 1 applic TOPICAL DAILY [facility]; Protocol Last Admin: 11/09/18 10:17 Dose: 1 applic Documented by: Pantoprazole Sodium (Protonix) 20 mg PO DAILY [facility] Last Admin: 11/09/18 10:16 Dose: 20 mg Documented by: Polyethylene Glycol (Miralax) 17 gm PO BID [facility] Last Admin: 11/09/18 10:16 Dose: 17 gm Documented by: Promethazine HCl (Phenergan) 25 mg IV Q4H PRN PRN PRN Reason: Nausea/Vomiting/agitation Last Admin: 11/07/18 16:25 Dose: 25 mg Documented by: Quetiapine Fumarate (Seroquel) 50 mg PO QHS PRN PRN Reason: Agitation/insomnia Sodium Chloride () 5 - 15 ml IV UD PRN PRN Reason: SALINE FLUSH Last Admin: 11/09/18 06:00 Dose: 10 ml Documented by: Sodium Chloride () 10 - 40 ml IV UD PRN PRN Reason: MULTILUMEN/HICMAN CATH FLUSH Last Admin: 11/09/18 06:00 Dose: 10 ml Documented by: Sodium Chloride () 10 ml IV UD PRN PRN Reason: Dialysis Catheter Flush Last Admin: 11/09/18 06:00 Dose: 10 ml Documented by: Tramadol HCl (Ultram) 50 mg PO Q12H PRN PRN PRN Reason: PAIN Last Admin: 11/09/18 14:30 Dose: 50 mg Documented by: Medical Necessity - Tobacco Use Smoking Status: Former smoker Assessment/Plan All Active Problems (Last Reviewed 11/03/18 @ 08:23 by Guillermo Park MD) Septic shock (Acute) Acute renal failure (Acute) Severe dehydration (Acute) Lactic acidosis (Acute) Hypoxia (Acute) Bloating (Acute) Fall (Resolved) Rhabdomyolysis (Resolved) This 62-year-old male with multiple comorbidities including paraplegia with 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 fib was admitted with shortness of breath for 3 days and productive cough. Abdomen was distended. Patient was found in septic shock lactic acid 5.7 creatinine 4.76 and acute kidney injury. The patient was admitted in ICU and patient was found to be gram-negative sue bacteremia and Acinetobacter and MRSA insect removed. 1. Septic shock secondary to complicated UTI (indwelling Louise catheter), E. coli bacteremia and possible decubitus ulcer Patient was transferred to ICU when he removed his DNR CC status and changed to DNR CCA. Initially on vasopressor support but is off for more than 24 hours. Hemodynamically stable. Polymicrobial nature of septic shock. Sacral Wound culture shows MDR Acinetobacter and MRSA. Urine culture enterococcus and MRSA. Left heel with large area of necrosis and ulcer. ID impression Acenobacter may be colonizer given his improvement without coverage. He requested minocycline and colistin suspension testing. Continue vancomycin dosing. Patient was transferred to PCU on 11/07. Foot x-ray shows no fracture. Demineralization of osseous structure with polyarticular arthrosis. Left foot MRI shows acute calcaneal osteomyelitis, soft tissue swelling and ulcer without abscess. Moderate insertional Achilles tendinosis. Mild to moderate muscle atrophy. Lower extremity arterial noninvasive studies ordered by assistant research scientist. Further debridement as per vascular studies and assistant research scientist decision. 2. Acute kidney injury probably secondary to septic shock/ATN from polymicrobial infection: [employer] has been consulted. Patient has right IJ hemodialysis catheter and is being dialyzed as per [place] supervisor rough end recommendation. 3. 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 Chronic thrombocytopenia -Platelet count is between 20-30,000. Fibrinogen 678, high probably acute phase reactant response No heparin or heparin related products. Bilateral SCDs for DVT prophylaxis. 4. A. fib with RVR -This is likely secondary to the levophedand his chronic conditions IV amiodarone is changed to p.o. amiodarone. Converted to sinus tachycardia. Metoprolol 25 mg twice daily added. 2D echo in April 2018 reported as normal left medical systolic function with mild concentric LVH. EF 55%. Impaired relaxation of left ventricle. Normal RV size systolic function normal right and left atria. Normal mitral and tricuspid valves. DVT: SCDs Patient CODE STATUS to DNR CC arrest. This is discussed with the patient power of admitted attorneys Ms. Cristine Rico. Discharge plan: LTAC. Microbiology Past 72 Hours 11/03/18 10:27 Wound - Sacral Gram Stain - Final 11/03/18 10:27 Wound - Sacral Wound Culture - Preliminary Acinetobacter baumannii Meth. resistant Staph. aureus 11/03/18 10:27 Wound - Sacral Anaerobic Culture - Preliminary Checking for anaerobes, further studies to follow. 11/03/18 03:42 Urine Catheter - Louise Urine Culture - Final Meth. resistant Staph. aureus Enterococcus faecalis 11/03/18 02:55 Blood Culture (Wb) - Anticubital Right Blood Culture - Preliminary Escherichia coli 11/03/18 03:07 Blood Culture (Wb) - Anticubital Left Blood Culture - Preliminary GNR lactose puttier Laboratory Results 11/04/18 17:09: Hep Bs Antigen Negative, Hep Bs Antibody Non Reactive, Hep B Cor e IgM Ab Negative 11/05/18 04:05: Diff Path Review Reviewed 11/06/18 04:30: Diff Path Review Reviewed 11/07/18 04:10: Sodium 143, Potassium 4.1, Chloride 103, Carbon Dioxide 27.0, Anion Gap 13, BUN 72 H, Creatinine 4.48 H, Estim Creat Clear Calc 16.75, Est GFR (MDRD) Af Amer 17 L, Est GFR (MDRD) Non-Af 14 L, BUN/Creatinine Ratio 16.1, Glucose 79, Calcium 8.4 L 11/07/18 04:10: WBC 13.0 H, RBC 3.97 L, Hgb 10.0 L, Hct 31.0 L, MCV 78.1 L, MCH 25.2 L, MCHC 32.3, RDW 18.2 H, RDW Differential 52.5 H, Plt Count 24 L*, Immature Gran % (Auto) 1.200 H, Neut % (Auto) 86.3 H, Lymph % (Auto) 4.6 L, Nance % (Auto) 7.5, Eos % (Auto) 0.3, Baso % (Auto) 0.1, Absolute Neuts (auto) 11.2 H, Absolute Lymphs (auto) 0.60 L, Total Counted Not Reportable, Differential Comment SCANNED, Diff Path Review Reviewed, Platelet Estimate MKD 11/07/18 04:10: Random Vancomycin 22.0 H 11/07/18 08:55: Troponin I 0.043 11/07/18 14:40: Fibrinogen 678 H Code Visit Inpatient E&M: 66318 Subs Hosp L3
--- NOTE | 2018-11-09 19:15 | MRI_ITS ---
STUDY: MRI LEFT REARFOOT WITHOUT CONTRAST REASON FOR EXAM: Male, 62 years old. Left calcaneal osteomyelitis. TECHNIQUE: Standardized fat and water weighted pulse sequences were obtained in all 3 orthogonal planes. COMPARISON: X-ray dated November 07, 2018. FINDINGS: Patient motion. Abnormal T1 bone marrow placement at the calcaneus (sagittal image 11 series 3) with corresponding bone marrow edema/contusion. No visualized fracture line. No dislocation. Soft tissue swelling/cellulitis predominates at the region of the calcaneus with deep ulceration. No abscess identified. Small tibiotalar/subtalar joint effusions. Moderate insertional Achilles tendinosis without tear. Mild chronic plantar fascial thickening. Mild/moderate muscle atrophy of the midfoot/hindfoot. Normal posterior tibialis tendon. Normal flexor digitorum longus tendon. Normal flexor hallucis longus tendon. Normal peroneus longus and brevis tendons. Normal tibialis anterior tendon. Normal extensor hallucis longus tendon. Normal extensor digitorum longus tendons. Intact distal tibiofibular syndesmotic ligamentous complex. Intact lateral ligamentous complex. Intact subtalar ligaments and sinus tarsi. Intact deltoid ligamentous complexes. Intact plantar calcaneonavicular (spring) ligament. Normal tibiotalar articular cartilage. Normal talar dome. Normal subtalar articular cartilage. Normal talonavicular articulation. Normal calcaneocuboid articulation. Normal navicular-cuneiform articulations. MRI/Lower Ext/No Jt/w/o IMPRESSION: Acute calcaneal osteomyelitis Soft tissue swelling/cellulitis and ulcer without abscess Moderate insertional Achilles tendinosis without tear Mild/moderate muscle atrophy (denervation/disuse) Tibiotalar/subtalar joint effusion Electronically Signed: Parish Walter DO at 12:02 EDT Tel , Service support ,
--- NOTE | 2018-11-09 19:51 | DIALYSIS ---
Pt tolerated 3.5HD tx w/ some decrease in BP w/ aggressive uf. Resolved with decreased UFR. Net UF -1000ml. See flow record for tx data.
[2018-11-09] MEDS: Heparin 10,000 UNITS/10 ML Vial IV (20:13)
[2018-11-09] MEDS: Vancomycin IV 500 MG/100 ML BAG 100 MG IV (21:35)
[2018-11-10] VITALS (12 sets, daily range): BP systolic 122–130; BP diastolic 58–73; PULSE 59–100; RESP 20–28; TEMP 36.4–36.6; O2SAT 94–97
[2018-11-10] MEDS: metroNIDAZOLE 500 MG Tablet PO ×2 (05:10→15:39)
[2018-11-10] MEDS: 0.9% NaCl Peripheral Flush Adult/Peds IV ×2 (05:28→05:29)
[2018-11-10 06:08] LABS: Absolute Lymphocyte Count 1.17 X10^3/ul (0.83-4.51); Absolute Neutrophil Count 13.7 X10^3/uL (2.0-7.7); Anion Gap 10 (5-15); BUN 39 mg/dL (7-18); BUN/Creat Ratio 13.5 RATIO (10-20); Basophil# 0.04 X10^3/uL; Basophil% 0.2 % (0-1); Calcium,Total 8.2 mg/dL (8.5-10.1); Chloride 98 mmol/L (98-107); Creatinine, Serum 2.88 mg/dL (0.70-1.30); EST Glomerular Filtration Rate 24 mL/min (>60); Eosinophil# 0.16 X10^3/uL; Est Glom Filt Rate - Afr Amer 29 mL/min (>60); Estimated Creatinine Clearance 26.06 ml/min; Glucose 96 mg/dL (74-106); Hematocrit 29.4 % (40-54); Hemoglobin 9.6 g/dl (13.0-16.5); Lymphocyte # 1.17 X10^3/ul (4.0); Mean Corp Hgb Conc 32.7 g/gl (32-36); Mean Corpuscular Hgb 25.1 pg (27.0-32.0); Mean Corpuscular Volume 76.8 fL (80-94); Monocyte# 1.68 X10^3/uL; Neutrophil % 81.3 % (47-70); Platelet Count 44 K/mm3 (150-450); Potassium 3.8 mmol/L (3.5-5.1); RBC Distribution Width CV 18.2 % (11.6-14.6); RBC Distribution Width SD 51.4 fl (35.1-43.9); Red Blood Count 3.83 M/mm3 (4.6-6.2); Sodium Level 137 mmol/L (136-145); White Blood Count 16.8 K/mm3 (4.4-11.0)
[2018-11-10 06:09] LABS: Differential Indicated SCAN CRITERIA MET; POSITIVE COUNT YES; POSITIVE DIFFERENTIAL YES; POSITIVE MORPHOLOGY YES
[2018-11-10 06:41] LABS: Anisocytosis 1+; Differential Comment SCAN; Hypochromasia 1+; Microcytosis 1+; Platelet Estimate MKD DEC (ADEQ); Platelet Morphology LARGE; Polychromasia RARE
--- NOTE | 2018-11-10 07:24 | PCM.PROGNOTE ---
Patient Problems: Active and Suspected Problems (Last Reviewed 11/03/18 @ 08:23 by Guillermo Park MD) Septic shock (Acute) Acute renal failure (Acute) Severe dehydration (Acute) Lactic acidosis (Acute) Hypoxia (Acute) Bloating (Acute) Subjective: This is a 62-year-old male with multiple comorbidities is seen bedside this morning for bilateral heel ulcers. He denies pain, fever, chills, nausea, vomiting. He has offloading boots in place. - Physical Exam General: Alert, Oriented x3, Cooperative Extremities: No cyanosis, Capillary Refill Less than 3 Seconds, No Calf Tenderness, Diminished Peripheral Pulses, Edema - mild bilateral lower extremities, - - bilateral lower extremity paralysis and compartments soft to palpate Skin: Ulcer/ Wound - Right heel ulcer measures 0.8 x 0.8 x 0.1 cm after eschar selective debridement was performed. Left heel ulcer measures 6.0 x 4.8 x 0.1 cm post excisional subcutaneous debridement (pre-debridement 5.8 x 4.7 x 0.1 cm). No purulence, erythema, streaking, odor, infection, direct visualized bone. Most of the partially adhered eschar to the right heel had healthy underlying skin and there is a open skin discontinuity with granular sub-hemorrhagic tissue with minimal blood drainage. The left heel ulcer has eschar which most of it was not adhered after debridement there is fibrous, pale granular subcutaneous tissue, and continued eschar. There is no bogginess or fluctuance on palpation or odor. Musculoskeletal: No Tenderness to Palpation of Joints or Extremities, Muscle Wasting Neurological: - - Lack of epicritic sensation light touch Psych/Mental Status: Normal Affect, Appropriate Vital Signs Temp Pulse Resp BP Pulse Ox 97.6 F L 67 20 H 130/70 H 94 11/10/18 05:00 11/10/18 05:00 11/10/18 05:00 11/10/18 05:00 11/10/18 05:00 Oxygen Flow Rate (L/min) 3 Oxygen Delivery Method Nasal Cannula Weight: 80.6 kg Body Mass Index (BMI) 27.1 Intake and Output for Last 24 Hours 11/08/18 11/09/18 11/10/18 23:59 23:59 23:59 Intake Total 710.9 / 710.9 1992.4 / 1991.4 334.5 / 334.5 Output Total 3345 / 3345 1690 / 1690 Balance -2634.1 / -2634.1 302.4 / 302.4 309.5 / 309.5 Microbiology Past 72 Hours 11/08/18 19:00 Gram Stain - Final Ulcer, Decubitus - Left Foot Wound Culture - Preliminary 11/03/18 10:27 Gram Stain - Final Wound - Sacral Wound Culture - Preliminary Acinetobacter baumannii Meth. resistant Staph. aureus Anaerobic Culture - Final No anaerobic bacteria isolated. 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 11/03/18 02:55 Blood Culture - Final Blood Culture (Wb) - Anticubital Right Escherichia coli Laboratory Tests Past 24 Hrs 11/04/18 11/10/18 11/10/18 17:09 05:30 05:30 WBC 16.8 H RBC 3.83 L Hgb 9.6 L Hct 29.4 L MCV 76.8 L MCH 25.1 L MCHC 32.7 RDW 18.2 H RDW Differential 51.4 H Plt Count 44 L* Immature Gran % (Auto) 0.500 Neut % (Auto) 81.3 H Lymph % (Auto) 7.0 L [place] % (Auto) 10.0 Eos % (Auto) 1.0 Baso % (Auto) 0.2 Absolute Neuts (auto) 13.7 H Absolute Lymphs (auto) 1.17 Total Counted Not Reportable Differential Comment SCAN Diff Path Review May foll Platelet Estimate MKD DEC Plt Morphology Comment LARGE Polychromasia RARE Hypochromasia 1+ Anisocytosis 1+ Microcytosis 1+ Sodium 137 Potassium 3.8 Chloride 98 Carbon Dioxide 29.0 Anion Gap 10 BUN 39 H Creatinine 2.88 H Estim Creat Clear Calc 26.06 Est GFR (MDRD) Af Amer 29 L Est GFR (MDRD) Non-Af 24 L BUN/Creatinine Ratio 13.5 Glucose 96 Calcium 8.2 L Hep Bs Antigen Negative Hep Bs Antibody Non Reactive Hep B Core IgM Ab Negative Hepatitis C Ab (EIA) Pending Medical Necessity - Tobacco Use Smoking Status: Former smoker Assessment/Plan All Active Problems (Last Reviewed 11/03/18 @ 08:23 by Guillermo Park MD) Septic shock (Acute) Acute renal failure (Acute) Severe dehydration (Acute) Lactic acidosis (Acute) Hypoxia (Acute) Bloating (Acute) Fall (Resolved) Rhabdomyolysis (Resolved) Bilateral pressure ulcerations posterior heel Right unstageable; upon debridement today there is subcutaneous tissue exposed Left heel ulceration down to deep subcutaneous tissue and part of this is also unstageable; concern for osteomyelitis (MRI supports) Lower extremity paralysis Septic shock with multiple sources of infection including E. coli bacteremia, MRSA positive sacral and MDR single bacteria infection, urinary tract infection with enterococcus and MRSA Delayed healing Malnutrition suspected Thrombocytopenia I discussed and reviewed his case and is diagnostic data. White blood cell count is elevated to 16.8 this morning. He remains afebrile and his vital signs are relatively stable. Also right foot xrays were reviewed without soft tissue emphysema, foreign body, acute injury, or osseous destruction. I reviewed left foot xrays which although report does not state osteomyelitis there is osteolucency and bone changes to the posterior calcaneus along with clinical findings c/w osteomyelitis (likely chronic) - an MRI was ordered for further evaluation. This is reviewed with some increased bone marrow edema at the posterior calcaneus which is a concern for osteomyelitis. A left heel wound culture was obtained and sent to microbiology for further evaluation; pending. This does not demonstrate bacterial growth so far. It is noted he has other cultures from various body regions with bacterial growth. No emergent foot/ankle surgery needed at this time. Continue with antibiotic therapy per ID service, along with follow culture results. He is currently on oral Flagyl, IV vancomycin and cefepime with stop date of December 15, 2017. I discussed this case with infectious disease physician, Dr. Lancaster in regards to medical versus surgical management of his potential calcaneus osteomyelitis. We will proceed with conservative wound care at this time and the a forementioned IV antibiotics. If lack of progress is noted or there is a status deteriorated sedation, a bone biopsy or partial calcanectomy will be considered. I do not recommend moving forward at this time due to the clinical stability and also his thrombocytopenia condition. Also noninvasive lower extremity arterial studies were ordered bilateral lower extremities. He has bilateral biphasic waveforms and a right HIMANSHU of 1.05 and a left HIMANSHU of 0.85. Critical limb ischemia is not suspected. Digital brachial index on the right side is 0.54 and on the left 0.43. I recommend nutritional supplementation to optimize healing such as Mac. Continue with wound care to heel -Santyl was ordered for bilateral application. This was applied this morning. Keep bilateral heels offloaded at all times. Medical management per primary team and infectious disease management is greatly appreciated. I will continue to follow him while in-house closely. To follow up at the wound healing center at discharge. Elsie Cook DPM, [facility] [phone]
--- NOTE | 2018-11-10 08:48 | PCM.TXEXTCAR ---
- Diet 11/03/18 07:30 Diet: Regular Diet Food consistency:: Regular Liquid Consistency:: Regular/Thin - Routine Orders/Code Status Suppository Type: Dulcolax 10mg Suppository Frequency: Daily PRN Routine Lab Work: CBC, BMP - twice weekly for 1-2 weeks then WEEKLY WHILE on antibiotics. Thrombocytopenia Code Status: [facility] - Wound(s) Coccyx Wound Type: Pressure Injury left heel Wound Type: Pressure Injury Dressing Change: AntiMicrobial (Aquacel AG, etc) right heel Wound Type: Pressure Injury Dressing Change: Dry Sterile Dressing right lateral malleolus Wound Type: Pressure Injury Dressing Change: Dry Sterile Dressing right lateral foot Wound Type: Pressure Injury Dressing Change: Dry Sterile Dressing sacrum Wound Type: Pressure Injury Dressing Change: Wet to Dry Dressing right low back/buttock Wound Type: shearing from tape - Therapies Weight Bearing: Weight bearing as tolerated Extremity Affected:: Bilateral Lower Physical Therapy: Eval and Treat Occupational Therapy: Eval and Treat Speech Therapy: Eval and Treat - Allergies/Procedures Done in Hospital Allergies/Adverse Reactions: Allergies wool Allergy (Severe, Verified 11/03/18 02:40) Other UNABLE TO BREATH NSAIDS (Non-Steroidal Anti-Inflamma Allergy (Verified 11/03/18 02:40) Rash - Type of Care/Length of Stay Estimated LOS: Convalescent Care Less Than 30 days Type of Care Needed: LTAC Rehab Potential: Fair Prognosis: Fair - Additional Orders/Day of Discharge Day of Discharge: 11/10/18 - Dietary and Speech Recommendations Dietitian Recommendations/Changes: Continue Regular diet while PO poor to encourage intake; once po intake improves, rec Regular low sodium w/ fluid restriction as indicated. Suggest 1 packet Mac BID for wound healing--order from pharmacy. Will provide ensure clear w/ meals for increased nutrition if consumed - suggest change to Nepro CHO Steady if ensure clear not acceptable to pt. - Follow Up Care Primary Care Physician: Rohith Roldan MD [Primary Care Provider] - Please follow up with your Primary Care Physician in: in 2 week Please Follow Up With: Gilmer Lancaster MD When: in 1-2 week Please Follow Up With: Elsie Cook DPM When: in 1-2 weeks for heel ulcers Please Follow Up With: Brown,Jeremy, DO When: in 3-4 weeks Please Follow Up With: Catrachito Condon MD When: in 2-3 weeks
--- NOTE | 2018-11-10 09:00 | CASEMGMT ---
Updated clinicals faxed to Ave at [facility] at this time. Call from Ave and she states that precert has been approved at this time. Dr. Lawton aware and states that Joyce/Tonny may need to do debridement. Ave aware and states that that can be taken care of at the [facility] and states that Dr. Lancaster's group does have privileges at [facility] as well. Dr. Lawton aware and Fidel U charge aware to notify Dr. Cook at this time of same, voices understanding. Dr. Lawton states that pt could go today if Dr. Cook and Dr. Lancaster are ok with it. Viky RN also aware, voice understanding. Maribell AGUERO CM
[2018-11-10] MEDS: Metoprolol Tartrate 25 MG Tablet PO (09:25)
[2018-11-10] MEDS: Amiodarone 200 MG Tablet PO (09:25)
[2018-11-10] MEDS: Polyethylene Glycol 3350 17 GM PACKET PO (09:25)
[2018-11-10] MEDS: guaiFENesin 600 MG Tablet PO (09:26)
[2018-11-10] MEDS: Collagenase 30gm Tube 1 APPLIC TOPICAL (09:26)
[2018-11-10] MEDS: Hydrocortisone 2.5% Crm 1 APPLIC TOPICAL (09:26)
[2018-11-10] MEDS: Pantoprazole Sodium 20 MG Tablet PO (09:26)
[2018-11-10] MEDS: Nystatin Powder 15gm Bottle 1 APPLIC TOPICAL (09:27)
[2018-11-10 09:55] LABS: Pathologist Review Reviewed
--- NOTE | 2018-11-10 10:07 | CASEMGMT ---
Addendum entered by Estefania Zabala 11/10/18 11:34: Discharge/transfer summary and Dr. Lancaster's progress note from 11/10/18 faxed to [facility] at this time. Maribell AGUERO CM Original Note: Per Dr. Lancaster, pt is ok to transfer to [facility] today and he wrote scripts for pt at this time. Dr. Lawton aware and states that Dr. Packer is ok with transfer today as well. Per Fidel, PCU charge, Dr. Cook states that she was ok with discharge today as long as Tonny was and she would be getting ahold of him on her own. Dr. Lawton aware of all and states will be discharging pt to [facility] today. Pt notified at this time and voices understanding. Pt would like me to call Cristine, his HPOA, at this time to notify her of same. Call to Cristine at this time and she is updated per pt request, voices understanding and she states that she will be heading in to see pt prior to him leaving this afternoon. Happy at [facility] requests that pt not arrive till 1530 as they have another admission prior to that and Yumi, U patient care secretary, aware and is setting up transport at this time. Maribell AGUERO CM
--- NOTE | 2018-11-10 10:33 | PN.ID_ITS ---
Patient Problems: Active and Suspected Problems (Last Reviewed 11/03/18 @ 08:23 by Guillermo Park MD) Septic shock (Acute) Acute renal failure (Acute) Severe dehydration (Acute) Lactic acidosis (Acute) Hypoxia (Acute) Bloating (Acute) Subjective: Feeling ok, no fever, no abd pain - Physical Exam General: Alert, Cooperative, No apparent distress Lungs: Rhonchi Cardiovascular: Regular rate, Regular Rhythm Abdomen: Soft, Non Tender, Non-Distended Skin: Ulcer/ Wound - wrapped Vital Signs Temp Pulse Resp BP Pulse Ox 97.9 F 61 20 H 122/65 H 95 11/10/18 09:28 11/10/18 09:28 11/10/18 09:28 11/10/18 09:28 11/10/18 09:28 Oxygen Flow Rate (L/min) 2 Oxygen Delivery Method Nasal Cannula Weight: 80.6 kg Body Mass Index (BMI) 27.1 Intake and Output for Last 24 Hours 11/08/18 11/09/18 11/10/18 23:59 23:59 23:59 Intake Total 710.9 / 710.9 1992.4 / 1992.4 334.5 / 334.5 Output Total 3345 / 3345 1690 / 1690 25 / 25 Balance -2634.1 / -2634.1 302.4 / 302.4 309.5 / 309.5 Microbiology Past 72 Hours 11/08/18 19:00 Gram Stain - Final Ulcer, Decubitus - Left Foot Wound Culture - Preliminary 11/03/18 10:27 Gram Stain - Final Wound - Sacral Wound Culture - Preliminary Acinetobacter baumannii Meth. resistant Staph. aureus Anaerobic Culture - Final No anaerobic bacteria isolated. 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 11/03/18 02:55 Blood Culture - Final Blood Culture (Wb) - Anticubital Right Escherichia coli Laboratory Tests Past 24 Hrs 11/04/18 11/09/18 11/10/18 17:09 06:00 05:30 WBC 16.8 H RBC 3.83 L Hgb 9.6 L Hct 29.4 L MCV 76.8 L MCH 25.1 L MCHC 32.7 RDW 18.2 H RDW Differential 51.4 H Plt Count 44 L* Immature Gran % (Auto) 0.500 Neut % (Auto) 81.3 H Lymph % (Auto) 7.0 L [place] % (Auto) 10.0 Eos % (Auto) 1.0 Baso % (Auto) 0.2 Absolute Neuts (auto) 13.7 H Absolute Lymphs (auto) 1.17 Total Counted Not Reportable Differential Comment SCAN Diff Path Review Reviewed September foll Platelet Estimate MKD DEC Plt Morphology Comment LARGE Polychromasia RARE Hypochromasia 1+ Anisocytosis 1+ Microcytosis 1+ Sodium Potassium Chloride Carbon Dioxide Anion Gap BUN Creatinine Estim Creat Clear Calc Est GFR (MDRD) Af Amer Est GFR (MDRD) Non-Af BUN/Creatinine Ratio Glucose Calcium Hep Bs Antigen Negative Hep Bs Antibody Non Reactive Hep B Core IgM Ab Negative Hepatitis C Ab (EIA) Pending 11/10/18 05:30 WBC RBC Hgb Hct MCV MCH MCHC RDW RDW Differential Plt Count Immature Gran % (Auto) Neut % (Auto) Lymph % (Auto) [place] % (Auto) Eos % (Auto) Baso % (Auto) Absolute Neuts (auto) Absolute Lymphs (auto) Total Counted Differential Comment Diff Path Review Platelet Estimate Plt Morphology Comment Polychromasia Hypochromasia Anisocytosis Microcytosis Sodium 137 Potassium 3.8 Chloride 98 Carbon Dioxide 29.0 Anion Gap 10 BUN 39 H Creatinine 2.88 H Estim Creat Clear Calc 26.06 Est GFR (MDRD) Af Amer 29 L Est GFR (MDRD) Non-Af 24 L BUN/Creatinine Ratio 13.5 Glucose 96 Calcium 8.2 L Hep Bs Antigen Hep Bs Antibody Hep B Core IgM Ab Hepatitis C Ab (EIA) Medical Necessity - Tobacco Use Smoking Status: Former smoker Route of nutrition/ use of supplements: [] Nutritional Intake: [] IV Site: [] Alford Catheter: [] - Assessment/Plan Antibiotics: [] Assessment/Plan: [] Active and Suspected Problems (Last Reviewed 11/03/18 @ 08:23 by Guillermo Park MD) Septic shock (Acute) Acute renal failure (Acute) Severe dehydration (Acute) Lactic acidosis (Acute) Hypoxia (Acute) Bloating (Acute) septic shock with ecoli bacteremia, BRANDO, and acute on chronic thrombocytopenia - overall improved on vanc/zosyn. Remains on HD now. Ucx with enterococcus and MRSA; has chronic alford. Sacral wound cx with MRSA and MDR Acinetobacter. L heel with large area of necrosis. CT abd/pelvis did not show osteo or abscess. Wound care following. The AcB may be a colonizer given his improvement without coverage. Have requested minocycline and colistin susc testing. MRI of L heel shows osteo, appreciate podiatry eval. Plan at this point will be for 6 weeks of iv vanc and cefepime, dosed with HD (cefepime will be 2gm on Mon, 2gm on Wed, 3gm on Wed) as well as po flagyl. Platelets improved slightly to 44. Stop date for abx planned for 12/15/18. Will follow, d/w Dr. Lawton and keycase assembler. Wrote rx.
--- NOTE | 2018-11-10 10:41 | NURSING ---
Spoke with Keeley, charge nurse at [facility] facility. She stated she would prefer us leave the central line in place. They will DC if not needed.
--- NOTE | 2018-11-10 11:42 | DS.PCM_ITS ---
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 fib was admitted with shortness of breath for 3 days and productive cough. Abdomen was distended. Patient was found in septic shock lactic acid 5.7 creatinine 4.76 and acute kidney injury. The patient was admitted in ICU and patient was found to be gram-negative sue bacteremia and Acinetobacter and MRSA insect removed. 1. Septic shock secondary to complicated UTI (indwelling Louise catheter), E. coli bacteremia and multiple decubitus ulcer over bilateral heel and sacral coccygeal region. The patient was admitted in the state of shock and resuscitated in ICU and then transferred to PCU. Polymicrobial nature of septic shock. Sacral Wound culture shows MDR Acinetobacter and MRSA. Urine culture enterococcus and MRSA. Left heel with large area of necrosis and ulcer. ID impression Acenobacter may be colonizer given his improvement without coverage. He requested minocycline and colistin suspension testing. Patient was transferred to PCU on 11/07. Foot x-ray shows no fracture. Demineralization of osseous structure with polyarticular arthrosis. Left foot MRI shows acute calcaneal osteomyelitis, soft tissue swelling and ulcer without abscess. Moderate insertional Achilles tendinosis. Mild to moderate muscle atrophy. Lower extremity arterial noninvasive studies ordered by side framer. Further debridement as per vascular studies and side framer decision. The patient is being discharged to LTAC on vancomycin, cefepime and Flagyl. Santyl appointment and nystatin powder to continue. 2. Acute kidney injury probably secondary to septic shock/ATN from polymicrobial infection: Foundation Maker has been consulted. Patient has right IJ hemodialysis catheter and is being dialyzed as per [place] adjunct business instructor recommendation. Patient is getting hemodialysis. Other follow-up with nephrology. 3. 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 Chronic thrombocytopenia -Platelet count is between 20-30,000. Fibrinogen 678, high probably acute phase reactant response No heparin or heparin related products. Bilateral SCDs for DVT prophylaxis. 4. A. fib with RVR -This is likely secondary to the levophedand his chronic conditions IV amiodarone is changed to p.o. amiodarone. Metoprolol 25 mg twice daily. Heart rate is normal sinus rhythm, heart rate in 50s to 60s. Amiodarone 200 mg daily. 2D echo in April 2018 reported as normal left medical systolic function with mild concentric LVH. EF 55%. Impaired relaxation of left ventricle. Normal RV size systolic function normal right and left atria. Normal mitral and tricuspid valves. DVT: SCDs Patient CODE STATUS to DNR CC arrest. This is discussed with the patient power of attorney general Cristine Rico. Discharge medication reconciliation done. Discharge follow-up instructions completed. Discharge process discussed with the patient and all questions were answered to patient's satisfaction. Patient is being discharged to LTAC. Discharge follow-up with ID and side framer, adjunct business instructor, delivery and installation subcontractor and PCP. Total time spent, exact 35 minutes on discharge meds reconciliation, examination, review of imaging and blood test and discussion with the patient on follow-up instructions. Subjective: Patient is more awake and alert today. Talking in low pitch voice. Patient is to legs thick mucous, not able to expectorate - Physical Exam General: Alert, Oriented x3, Cooperative, Lethargic HEENT: Atraumatic, PERRLA, EOMI, Normocephalic Oral: - - Thick mucus secretion in the pharynx Lungs: No wheeze, No rales, Diminished, Rhonchi Cardiovascular: Regular rate, Regular Rhythm, Normal S1, Normal S2, No murmurs Abdomen: Bowel Sounds Present, Soft, Non Tender Extremities: Edema Skin: Ulcer/ Wound - Bilateral heel ulcer and coccygeal ulcer, pressure sores Musculoskeletal: Arthritic Changes, Muscle Wasting, - Neurological: - - DTR hyporeflexic. Paraplegic. Urinary incontinence and fecal incontinence. Vital Signs Temp Pulse Resp BP Pulse Ox 97.9 F 61 20 H 122/65 H 95 11/10/18 09:28 11/10/18 09:28 11/10/18 09:28 11/10/18 09:28 11/10/18 09:28 Oxygen Flow Rate (L/min) 2 Oxygen Delivery Method Nasal Cannula Weight: 177 lb 11.081 oz Body Mass Index (BMI) 27.1 Intake and Output for Last 24 Hours 11/08/18 11/09/18 11/10/18 23:59 23:59 23:59 Intake Total 710.9 / 710.9 1992.4 / 1992.4 334.5 / 334.5 Output Total 3345 / 3345 1690 / 1690 25 / 25 Balance -2634.1 / -2634.1 302.4 / 302.4 309.5 / 309.5 Microbiology Past 72 Hours 11/08/18 19:00 Gram Stain - Final Ulcer, Decubitus - Left Foot Wound Culture - Preliminary 11/03/18 10:27 Gram Stain - Final Wound - Sacral Wound Culture - Preliminary Acinetobacter baumannii Meth. resistant Staph. aureus Anaerobic Culture - Final No anaerobic bacteria isolated. 11/03/18 03:07 Blood Culture - Final Blood Culture (Wb) - Anticubital Left GNR lactose collection team lead 11/03/18 02:55 Blood Culture - Final Blood Culture (Wb) - Anticubital Right Escherichia coli Laboratory Tests Past 24 Hrs 11/04/18 11/09/18 11/10/18 17:09 06:00 05:30 WBC 16.8 H RBC 3.83 L Hgb 9.6 L Hct 29.4 L MCV 76.8 L MCH 25.1 L MCHC 32.7 RDW 18.2 H RDW Differential 51.4 H Plt Count 44 L* Immature Gran % (Auto) 0.500 Neut % (Auto) 81.3 H Lymph % (Auto) 7.0 L Hettinger % (Auto) 10.0 Eos % (Auto) 1.0 Baso % (Auto) 0.2 Absolute Neuts (auto) 13.7 H Absolute Lymphs (auto) 1.17 Total Counted Not Reportable Differential Comment SCAN Diff Path Review Reviewed May foll Platelet Estimate MKD DEC Plt Morphology Comment LARGE Polychromasia RARE Hypochromasia 1+ Anisocytosis 1+ Microcytosis 1+ Sodium Potassium Chloride Carbon Dioxide Anion Gap BUN Creatinine Estim Creat Clear Calc Est GFR (MDRD) Af Amer Est GFR (MDRD) Non-Af BUN/Creatinine Ratio Glucose Calcium Hep Bs Antigen Negative Hep Bs Antibody Non Reactive Hep B Core IgM Ab Negative Hepatitis C Ab (EIA) Pending 11/10/18 05:30 WBC RBC Hgb Hct MCV MCH MCHC RDW RDW Differential Plt Count Immature Gran % (Auto) Neut % (Auto) Lymph % (Auto) Hettinger % (Auto) Eos % (Auto) Baso % (Auto) Absolute Neuts (auto) Absolute Lymphs (auto) Total Counted Differential Comment Diff Path Review Platelet Estimate Plt Morphology Comment Polychromasia Hypochromasia Anisocytosis Microcytosis Sodium 137 Potassium 3.8 Chloride 98 Carbon Dioxide 29.0 Anion Gap 10 BUN 39 H Creatinine 2.88 H Estim Creat Clear Calc 26.06 Est GFR (MDRD) Af Amer 29 L Est GFR (MDRD) Non-Af 24 L BUN/Creatinine Ratio 13.5 Glucose 96 Calcium 8.2 L Hep Bs Antigen Hep Bs Antibody Hep B Core IgM Ab Hepatitis C Ab (EIA) Home Medications: Medications to take at Discharge Albuterol Aerosols [Ventolin Aerosols] 2.5 mg INHALATION Q6H PRN PRN 11/03/18 Bisacodyl 10 mg RC DAILY PRN PRN 11/03/18 Cholecalciferol (Vitamin D3) [Vitamin D3] 50,000 unit PO GENAO 11/03/18 DiphenhydrAMINE [Benadryl] 50 mg PO Q6H PRN 11/03/18 Escitalopram Oxalate 10 mg PO DAILY 11/03/18 Guaifenesin [Mucinex] 600 mg PO BID 11/03/18 Hydrocortisone 1% Crm [Hytone] 1 applic TOPICAL BID 11/03/18 Levofloxacin [Levaquin] 500 mg PO DAILY 11/03/18 Magnesium Hydroxide [Milk Of Magnesia] 30 ml PO DAILY PRN PRN 11/03/18 Methocarbamol 1,500 mg PO TID 11/03/18 Multivitamin [Once Daily] 1 each PO DAILY 11/03/18 Omeprazole 20 mg PO DAILY 11/03/18 Tizanidine HCl 4 mg PO Q8H 11/03/18 traMADol [Ultram] 50 mg PO Q6H PRN PRN 11/03/18 Amiodarone HCl [Cordarone] 200 mg PO DAILY tab 11/10/18 Cefepime HCl [Maxipime] 2 gm IV UD #15 vial 11/10/18 Collagenase [Santyl] 1 applic TOPICAL DAILY tube 11/10/18 Menthol/Lanolin/Calamine/Znox [Calmoseptine Ointment] 1 applic TOPICAL TID PRN tube 11/10/18 Metoprolol Tartrate [Lopressor (beta dorie)] 25 mg PO BID tab 11/10/18 Nutritional Supplement [Mac - ORANGE FLAVOR] 1 packet PO BIDCM packet 11/10/18 Nystatin Powder [Mycostatin Powder] 1 applic TOPICAL DAILY bottle 11/10/18 Polyethylene Glycol 3350 [Miralax] 17 gm PO BID packet 11/10/18 Vancomycin IV Pharmacy to Dose 1 ea IV UD 35 Days ea 11/10/18 metroNIDAZOLE [Flagyl] 500 mg PO TID #120 tab 11/10/18 Following Prescrptions Were Given to Patient: metroNIDAZOLE [Flagyl] 500 mg PO TID #120 tab Prescription Printed Cefepime HCl [Maxipime] 2 gm IV UD #15 vial Prescription Printed Vancomycin IV Pharmacy to Dose 1 ea IV UD 35 Days ea Prescription Printed Primary Care Physician: Rohith Roldan MD [Primary Care Provider] - Please follow up with your Primary Care Physician in: in 2 week Please Follow Up With: Gilmer Lancaster MD When: in 1-2 week Please Follow Up With: Elsie Cook DPM When: in 1-2 weeks for heel ulcers Please Follow Up With: Jeremy Packer DO When: in 3-4 weeks Please Follow Up With: Catrachito Condon MD When: in 2-3 weeks Medical Necessity - Tobacco Use Smoking Status: Former smoker Meaningful Use Info Meaningful Use Diagnoses (Choose all that apply): None applicable Code Visit Inpatient E&M: 05647 Disch Hosp
--- NOTE | 2018-11-10 12:09 | PCM.PN.REN ---
Patient Problems: Active and Suspected Problems (Last Reviewed 11/03/18 @ 08:23 by Guillermo Park MD) Septic shock (Acute) Acute renal failure (Acute) Severe dehydration (Acute) Lactic acidosis (Acute) Hypoxia (Acute) Bloating (Acute) Objective: HD yesterday respiratory distress in am due to mucous plug now improved after suction - Physical Exam Vital Signs Temp Pulse Resp BP Pulse Ox 97.8 F 85 28 H 129/71 H 94 11/10/18 11:38 11/10/18 11:38 11/10/18 11:38 11/10/18 11:38 11/10/18 11:38 Oxygen Flow Rate (L/min) 3 Oxygen Delivery Method Nasal Cannula Weight: 80.6 kg Body Mass Index (BMI) 27.1 Intake and Output for Last 24 Hours 11/08/18 11/09/18 11/10/18 23:59 23:59 23:59 Intake Total 710.9 / 710.9 1992.4 / 1992.4 764.5 / 764.5 Output Total 3345 / 3345 1690 / 1690 55 / 55 Balance -2634.1 / -2634.1 302.4 / 302.4 709.5 / 709.5 Microbiology Past 72 Hours 11/08/18 19:00 Gram Stain - Final Ulcer, Decubitus - Left Foot Wound Culture - Preliminary Staphylococcus aureus Gram negative sue 11/03/18 10:27 Gram Stain - Final Wound - Sacral Wound Culture - Preliminary Acinetobacter baumannii Meth. resistant Staph. aureus Anaerobic Culture - Final No anaerobic bacteria isolated. 11/03/18 03:07 Blood Culture - Final Blood Culture (Wb) - Anticubital Left GNR lactose tire and lube technician 11/03/18 02:55 Blood Culture - Final Blood Culture (Wb) - Anticubital Right Escherichia coli Laboratory Tests Past 24 Hrs 11/04/18 11/09/18 11/10/18 17:09 06:00 05:30 WBC 16.8 H RBC 3.83 L Hgb 9.6 L Hct 29.4 L MCV 76.8 L MCH 25.1 L MCHC 32.7 RDW 18.2 H RDW Differential 51.4 H Plt Count 44 L* Immature Gran % (Auto) 0.500 Neut % (Auto) 81.3 H Lymph % (Auto) 7.0 L Curry % (Auto) 10.0 Eos % (Auto) 1.0 Baso % (Auto) 0.2 Absolute Neuts (auto) 13.7 H Absolute Lymphs (auto) 1.17 Total Counted Not Reportable Differential Comment SCAN Diff Path Review Reviewed May foll Platelet Estimate MKD DEC Plt Morphology Comment LARGE Polychromasia RARE Hypochromasia 1+ Anisocytosis 1+ Microcytosis 1+ Sodium Potassium Chloride Carbon Dioxide Anion Gap BUN Creatinine Estim Creat Clear Calc Est GFR (MDRD) Af Amer Est GFR (MDRD) Non-Af BUN/Creatinine Ratio Glucose Calcium Hep Bs Antigen Negative Hep Bs Antibody Non Reactive Hep B Core IgM Ab Negative Hepatitis C Ab (EIA) Pending 11/10/18 05:30 WBC RBC Hgb Hct MCV MCH MCHC RDW RDW Differential Plt Count Immature Gran % (Auto) Neut % (Auto) Lymph % (Auto) Curry % (Auto) Eos % (Auto) Baso % (Auto) Absolute Neuts (auto) Absolute Lymphs (auto) Total Counted Differential Comment Diff Path Review Platelet Estimate Plt Morphology Comment Polychromasia Hypochromasia Anisocytosis Microcytosis Sodium 137 Potassium 3.8 Chloride 98 Carbon Dioxide 29.0 Anion Gap 10 BUN 39 H Creatinine 2.88 H Estim Creat Clear Calc 26.06 Est GFR (MDRD) Af Amer 29 L Est GFR (MDRD) Non-Af 24 L BUN/Creatinine Ratio 13.5 Glucose 96 Calcium 8.2 L Hep Bs Antigen Hep Bs Antibody Hep B Core IgM Ab Hepatitis C Ab (EIA) Medical Necessity - Tobacco Use Smoking Status: Former smoker Assessment/Plan All Active Problems (Last Reviewed 11/03/18 @ 08:23 by Guillermo Park MD) Septic shock (Acute) Acute renal failure (Acute) Severe dehydration (Acute) Lactic acidosis (Acute) Hypoxia (Acute) Bloating (Acute) Fall (Resolved) Rhabdomyolysis (Resolved) BRANDO ATN .Pt is HD dependent. No recovery of kidney function.HD today 1.2 L ultrafiltration. Isolated ultrafiltration session yesterday with ultrafiltration goal of 2-3 L Will continue to monitor kidney function recovery hemodialysis accesses right IJ temporary hemodynamic catheter I Will defer tunneled catheter placement until PLT and WBC are better Edema LE UF as tolerated with HD Shock septic resolved levophed off Antibiotics as per the ID service
--- NOTE | 2018-11-10 12:24 | PHA.DC.MR ---
Pharmacy Service has performed discharge medication reconciliation for this patient upon transfer to [facility] The patient's discharge medication list was reviewed for discrepancies and discrepancies were resolved. Home Medications Albuterol Aerosols [Ventolin Aerosols] 2.5 mg INHALATION Q6H PRN PRN 11/03/18 Bisacodyl 10 mg RC DAILY PRN PRN 11/03/18 Cholecalciferol (Vitamin D3) [Vitamin D3] 50,000 unit PO GENAO 11/03/18 DiphenhydrAMINE [Benadryl] 50 mg PO Q6H PRN 11/03/18 Escitalopram Oxalate 10 mg PO DAILY 11/03/18 Guaifenesin [Mucinex] 600 mg PO BID 11/03/18 Hydrocortisone 1% Crm [Hytone] 1 applic TOPICAL BID 11/03/18 Levofloxacin [Levaquin] 500 mg PO DAILY 11/03/18 Magnesium Hydroxide [Milk Of Magnesia] 30 ml PO DAILY PRN PRN 11/03/18 Methocarbamol 1,500 mg PO TID 11/03/18 Multivitamin [Once Daily] 1 each PO DAILY 11/03/18 Omeprazole 20 mg PO DAILY 11/03/18 Tizanidine HCl 4 mg PO Q8H 11/03/18 traMADol [Ultram] 50 mg PO Q6H PRN PRN 11/03/18 Amiodarone HCl [Cordarone] 200 mg PO DAILY tab 11/10/18 Cefepime HCl [Maxipime] 2 gm IV UD #15 vial 11/10/18 Collagenase [Santyl] 1 applic TOPICAL DAILY tube 11/10/18 Menthol/Lanolin/Calamine/Znox [Calmoseptine Ointment] 1 applic TOPICAL TID PRN tube 11/10/18 Metoprolol Tartrate [Lopressor (beta dorie)] 25 mg PO BID tab 11/10/18 Nutritional Supplement [Mac - ORANGE FLAVOR] 1 packet PO BIDCM packet 11/10/18 Nystatin Powder [Mycostatin Powder] 1 applic TOPICAL DAILY bottle 11/10/18 Polyethylene Glycol 3350 [Miralax] 17 gm PO BID packet 11/10/18 Vancomycin IV Pharmacy to Dose 1 ea IV UD 35 Days ea 11/10/18 metroNIDAZOLE [Flagyl] 500 mg PO TID #120 tab 11/10/18
--- NOTE | 2018-11-10 13:31 | DCINST_ITS ---
Weight Bearing Status: No weight bearing, - - hange feet over pillows while in bed to fload heels in air. foam pillow boots do not provide adequate offloading when used alonge Keep extremity elevated above heart level: Left Leg, Right Leg Call your doctor if your incision/area has: Continuous Slow Oozing, Sudden Increased Bleeding, Increased Pain/ Swelling, Increased Redness, Foul Smelling Discharge Call your doctor if you observe: Fever of 101 or Higher, Calf discomfort, Uncontrolled pain Cleanse incision/area with: Soap & Water, - - change dressing daily to each heel with santyl applied nickel thickness; cover with gauze and kerlix Allergies/Adverse Reactions: Allergies wool Allergy (Severe, Verified 11/03/18 02:40) Other UNABLE TO BREATH NSAIDS (Non-Steroidal Anti-Inflamma Allergy (Verified 11/03/18 02:40) Rash Medications to take at Discharge Albuterol Aerosols [Ventolin Aerosols] 2.5 mg INHALATION Q6H PRN PRN 11/03/18 Bisacodyl 10 mg RC DAILY PRN PRN 11/03/18 Cholecalciferol (Vitamin D3) [Vitamin D3] 50,000 unit PO GENAO 11/03/18 DiphenhydrAMINE [Benadryl] 50 mg PO Q6H PRN 11/03/18 Escitalopram Oxalate 10 mg PO DAILY 11/03/18 Guaifenesin [Mucinex] 600 mg PO BID 11/03/18 Hydrocortisone 1% Crm [Hytone] 1 applic TOPICAL BID 11/03/18 Levofloxacin [Levaquin] 500 mg PO DAILY 11/03/18 Magnesium Hydroxide [Milk Of Magnesia] 30 ml PO DAILY PRN PRN 11/03/18 Methocarbamol 1,500 mg PO TID 11/03/18 Multivitamin [Once Daily] 1 each PO DAILY 11/03/18 Omeprazole 20 mg PO DAILY 11/03/18 Tizanidine HCl 4 mg PO Q8H 11/03/18 traMADol [Ultram] 50 mg PO Q6H PRN PRN 11/03/18 Amiodarone HCl [Cordarone] 200 mg PO DAILY tab 11/10/18 Cefepime HCl [Maxipime] 2 gm IV UD #15 vial 11/10/18 Collagenase [Santyl] 1 applic TOPICAL DAILY tube 11/10/18 Menthol/Lanolin/Calamine/Znox [Calmoseptine Ointment] 1 applic TOPICAL TID PRN tube 11/10/18 Metoprolol Tartrate [Lopressor (beta dorie)] 25 mg PO BID tab 11/10/18 Nutritional Supplement [Mac - ORANGE FLAVOR] 1 packet PO BIDCM packet 11/10/18 Nystatin Powder [Mycostatin Powder] 1 applic TOPICAL DAILY bottle 11/10/18 Polyethylene Glycol 3350 [Miralax] 17 gm PO BID packet 11/10/18 Vancomycin IV Pharmacy to Dose 1 ea IV UD 35 Days ea 11/10/18 metroNIDAZOLE [Flagyl] 500 mg PO TID #120 tab 11/10/18 The following prescriptions were given: metroNIDAZOLE [Flagyl] 500 mg PO TID #120 tab Prescription Printed Cefepime HCl [Maxipime] 2 gm IV UD #15 vial Prescription Printed Vancomycin IV Pharmacy to Dose 1 ea IV UD 35 Days ea Prescription Printed Primary Care Physician: Rohith Roldan MD [Primary Care Provider] - Please follow up with your Primary Care Physician in: in 2 week Test Results: Test results from this visit will be discussed in further detail at your follow- up appointment, if applicable. Please Follow Up With: Gilmer Lancaster MD When: in 1-2 week Please Follow Up With: Clinic,Wound When: in 1-2 weeks for heel ulcers with Dr. Cook Please Follow Up With: Jeremy Packer DO When: in 3-4 weeks Please Follow Up With: Catrachito Condon MD When: in 2-3 weeks Proposed Discharge Date: 11/10/18
--- NOTE | 2018-11-10 15:10 | NURSING ---
report called to Nidia Vidales at [facility]
[2018-11-11 09:46] LABS: Pathologist Review Reviewed
== END 2018-11-10 16:09 | DRG 673 ==
LOC: ED 05:20 → PCU 07:11 → ICU 21:05 → PCU 11-04 07:30 → ICU 11-08 09:27 → PCU 11-08 09:27
PROVIDERS: Internal Medicine; Internal Medicine Critical Care Medicine; Internal Medicine Infectious Disease; Internal Medicine Nephrology; Physician Assistant; Admitting Provider Hospitalist; Emergency Provider Emergency Medicine; Family Provider Family Medicine; PCP Family Medicine; Referring Provider Hospitalist; Visit Provider Internal Medicine
DX: T83.511A Infection and inflammatory reaction due to indwelling urethral catheter, initial encounter (principal); L89.154 Pressure ulcer of sacral region, stage 4; R65.21 Severe sepsis with septic shock; N17.0 Acute kidney failure with tubular necrosis; A41.51 Sepsis due to Escherichia coli [E. coli]; G82.20 Paraplegia, unspecified; E87.2 Acidosis; S24.109S Unspecified injury at unspecified level of thoracic spinal cord, sequela; W19.XXXS Unspecified fall, sequela; N31.9 Neuromuscular dysfunction of bladder, unspecified; D69.6 Thrombocytopenia, unspecified; M45.7 Ankylosing spondylitis of lumbosacral region; Z66 Do not resuscitate; Z87.891 Personal history of nicotine dependence; L89.620 Pressure ulcer of left heel, unstageable; L89.610 Pressure ulcer of right heel, unstageable; R15.9 Full incontinence of feces; N39.498 Other specified urinary incontinence; L40.9 Psoriasis, unspecified; E87.5 Hyperkalemia; I48.2 Chronic atrial fibrillation; Z85.47 Personal history of malignant neoplasm of testis; Z90.79 Acquired absence of other genital organ(s); D64.9 Anemia, unspecified; E86.0 Dehydration; R09.02 Hypoxemia; B95.62 Methicillin resistant Staphylococcus aureus infection as the cause of diseases classified elsewhere; B96.89 Other specified bacterial agents as the cause of diseases classified elsewhere
CPT/HCPCS: 31720; 36415; 51702; 71045; 72148; 73630; 73718; 74018; 74176; 80048; 80053; 80202; 81001; 83605; 83735; 84100; 84132; 84484; 85025; 85027; 85384; 85610; 85730; 86705; 86706; 86803; 86900; 86965; 87040; 87070; 87075; 87077; 87081; 87086; 87088; 87186; 87205; 87340; 87640; 90937; 93005; 93923; 97162; 97166; 97530; 97802; 99251; 99285; J7030; J7040; J7050; P9035; A4216; C1752; G0257; G0463; J2405

== ENCOUNTER 2018-12-19 20:20 | Emergency (ER) | payer MEDICARE, SELFPAY ==
[2018-11-03 07:00] VITALS: BMI 27.1
[2018-12-19 20:21] VITALS: BP 149/87; PULSE 102; RESP 18; TEMP 36.8; O2SAT 95; BMI 25.3
[2018-12-19 20:28] VITALS: PULSE 101; RESP 26; O2SAT 92
[2018-12-19 20:31] LABS: Bedside Glucose 144 mg/dL (70-110)
--- NOTE | 2018-12-19 20:34 | ED.RN ---
pt just opened his eyes and is moaning.
--- NOTE | 2018-12-19 20:50 | ED.RN ---
approx 2034 pt began shaking, eyes twitching rapidly, 02 dropped, ede johnson suctioned pt, pt had no gag reflex. activity continued for approx 1-2 minutes. md informed of activity. md arrived at bedside approx 2044. the time is currently 2052, pt's eyes are closed, moving his jaw but does not open his eyes..
--- NOTE | 2018-12-19 20:51 | EKG12_ITS ---
Test Reason : ALTER LOC Blood Pressure : / mmHG Vent. Rate : 105 BPM Atrial Rate : 105 BPM P-R Int : 136 ms QRS Dur : 074 ms QT Int : 358 ms P-R-T Axes : 057 -02 094 degrees QTc Int : 473 ms Sinus tachycardia Nonspecific ST and T wave abnormality Abnormal ECG Confirmed by CHARO FERGUSON, ROLANDO ([id number]), marketing editor LILY WHITMAN ([id number]) on 12/21/2018 10:46:37 AM Referred By: DR CLARK Confirmed By:ROLANDO MANCILLA MD
--- NOTE | 2018-12-19 20:52 | CT_ITS ---
STUDY: CT BRAIN WITHOUT CONTRAST REASON FOR EXAM: Male, 63 years old. Mental status changes. Seizure. RADIATION DOSAGE (If Supplied By Facility): CTDIvol = ( 44.99 ) mGy, DLP = ( 745.49 ) mGycm TECHNIQUE: Transaxial CT imaging of the brain was performed without administration of intravenous contrast material. Individualized dose optimization techniques were used for this CT. COMPARISON: 05/11/2018, and previous MRIs. FINDINGS: Normal soft tissue structures. Normal calvarium. As on the previous exam, there is heterogeneous decreased attenuation in both occipital lobes and posterior parietal lobes. Findings are suggestive of posterior reversible encephalopathy syndrome (acute hypertensive encephalopathy), which the patient has had previously. This can be seen in hypertensive emergency. Consider MRI. Again seen is atrophy of the frontal lobes and posterior fossa structures. Mild diffuse white matter disease is suggested. No evidence for hemorrhage. No evidence for mass or mass effect. No midline shift. Normal visualized paranasal sinuses. CT/Brain/Head without Contrast IMPRESSION: Symmetric decreased attenuation in both posterior cerebral hemispheres suggestive of posterior reversible encephalopathy syndrome (acute hypertensive encephalopathy). No other changes. Electronically Signed: Tan Ann MD at 21:50 EDT , Service support ,
--- NOTE | 2018-12-19 20:53 | ED.DCSUM_ITS ---
History of Present Illness Chief Complaint: Alt LOC Narrative: Patient presents last seen normal 6 or 7 hours ago 1400 [facility] with altered level of consciousness. Just prior to my evaluating the patient, ED nursing/staff saw him have what appeared to be full body tonic phase of a possible seizure, forced deviation of his eyes to the right, and apnea with transient desaturation into the 70s and transient tachycardia. He started spontaneously breathing and these vital sign abnormalities resolved, but he is still depressed level of consciousness with no gag reflex. He recently was sent to nursing facility after having sepsis from unknown etiology, although his problem list lists osteomyelitis as the only infection on the list. He is DNR comfort care only and has a history of chronic paralysis, is diagnosis list also lists epidural hemorrhage, presumably causing his paralysis. 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: Chronic (11) Seizure Status: Inactive Past Medical History - Allergies and Home Meds Allergies/Adverse Reactions: Allergies wool Allergy (Severe, Verified 11/03/18 02:40) Other UNABLE TO BREATH NSAIDS (Non-Steroidal Anti-Inflamma Allergy (Verified 11/03/18 02:40) Rash Primary Care Physician: Rohith Roldan MD [Primary Care Provider] - Surgical History: - - Reviewed Lives: [facility] Smoking Status: Former smoker - Family History Maternal Family History: Family History (Last Reviewed 11/03/18 @ 08:23 by Guillermo Park MD) Mother Diabetes Father Heart disease Family History: Reports: No pertinent history Review of Systems ROS: Unable to Obtain Physical Exam Vital Signs/Narrative: Vital Signs Temp Pulse Resp BP Pulse Ox 12/19/18 20:28 101 H 26 H 92 12/19/18 20:21 98.2 F 102 H 18 149/87 H 95 Inital Vital Signs reviewed: Yes General: Cachectic Head: Normocephalic, Atraumatic Eyes: - - pupils 3mm, sluggish ENT: Moist mucous membranes, No rhinorrhea Neck: Supple, No lymphadenopathy Cardiovascular: Regular rate, Regular rhythm, No murmurs, Tachycardia Respiratory: No distress, CTA bilaterally Abdomen: Soft, Nondistended, Normal bowel sounds, No masses Back: Normal Inspection Extremities: No edema Skin: Normal color, No rash, No Trauma Neurological: - - Obtunded, unresponsive, GCS 3. Upgoing toes with Babinski. All 4 extremities flaccid. No gag reflex, however afterwards he starts moving his jaw as of licking his lips. Diagnostic/Tx/Re-eval - Rhythm Strip Rhythm Strip: Sinus Tach Rate: 105 Ectopy: None - EKG Initial EKG Interpretation: No Acute Injury Pattern - Normal axis, unremarkable EKG, Sinus Tachycardia, Non-Specific ST Changes - Laterally - Medical Decision Making Spoke with Dr. Roldan, who is the assigned [facility] doctor and knows the patient. He confirms the patient is DNR comfort care only and not to be intubated, so we did hold off on this. The facility confirms that he is comfort care only and is looking to fax us the paperwork. All are in agreement at this time with a work-up and abstaining from life-sustaining measures. While being monitored in the ED and waiting for test results, patient had 2 episodes that were definitely seizures. I witnessed them, it was tonic-clonic both upper extremities, face twitching, eyes rolled back in his head. Both lasted 1 to 2 minutes, he was given Ativan 1 mg after the second 1, followed by Keppra [address] shows signs of posterior reversible encephalopathy syndrome. At this time he does not have acute hypertensive emergency. Initially his blood pressure was in the 140s, it is now in the 170s, and I do not think that is causing all of this. These findings were present on his prior CT. There was no acute hemorrhage seen on CT. The rest of his work- up showed urinary infection, and otherwise unremarkable. Discussed again with Dr. Roldan who agrees with sending him back on Keppra and Keflex, and also request neuro checks for the next 3 days. He will be given Rocephin 1 g IV here along with a urine culture sent. ED Disposition - Plan for ED Patient: Disposition: [facility] Facility Diagnosis: Seizures, Complicated urinary tract infection, PRES (posterior reversible encephalopathy syndrome) Instructions: SEIZURE, Recurrent [Adult] Prescriptions: Cephalexin [Keflex] 500 mg PO Q12 #14 cap Prescription Printed levETIRAcetam tablet [Keppra tablet] 500 mg PO BID #60 tab Prescription Printed Referrals: Rohith Roldan MD [Primary Care Provider] - 2 Days Additional Instructions: -Neuro checks x 3 days
[2018-12-19 20:54] VITALS: O2SAT 98
[2018-12-19 21:05] LABS: Absolute Lymphocyte Count 0.77 X10^3/uL (0.83-4.51); Absolute Neutrophil Count 9.5 X10^3/uL (2.0-7.7); Basophil# 0.04 X10^3/uL; Basophil% 0.4 % (0-1); Eosinophil# 0.08 X10^3/uL; Eosinophils% 0.7 % (0-5); Hematocrit 35.2 % (40-54); Hemoglobin 10.5 g/dL (13.0-16.5); Lymphocyte # 0.77 X10^3/ul (4.0); Lymphocyte % 7.1 % (19-41); Mean Corp Hgb Conc 29.8 g/dL (32-36); Mean Corpuscular Hgb 29.8 pg (27.0-32.0); Mean Platelet Vol. 10.5 fl (6.2-12.0); Monocyte# 0.48 X10^3/uL; Monocyte% 4.4 % (0-10); NRBC Flagged by Analyzer 0 % (0-5); Neutrophil # 9.46 X10^3/uL (2.7-7.7); Neutrophil % 86.8 % (47-70); POSITIVE MORPHOLOGY YES; Platelet Count 80 K/mm3 (150-450); RBC Distribution Width CV 20.5 % (11.6-14.6); RBC Distribution Width SD 73.8 fl (35.1-43.9); Red Blood Count 3.52 M/mm3 (4.6-6.2); White Blood Count 10.9 K/mm3 (4.4-11.0)
[2018-12-19 21:08] LABS: Differential Indicated SCAN CRITERIA MET
[2018-12-19 21:11] LABS: Bacteria 0 SEEN /hpf (None Seen); Mucous, Urine 0 SEEN /hpf (<or=2+)
--- NOTE | 2018-12-19 21:15 | ED.RN ---
DAVONTE CALLED OUT TO [facility] FOR HELP. CHARGE NURSE WENT INTO PT'S ROOM THEN WENT TO GET DR. CLARK. THIS RN, THREAD SINGER AND DR. CLARK IN ROOM TO WITNESS PT HAVING A SEIZURE. SEIZURE LASTED APPROXIMALLY 30 SECONDS. SEIZURE STOPPED PRIOR TO ATIVAN ADMINISTRATION.
[2018-12-19 21:18] LABS: Anion Gap 20 (5-15); BUN 24 mg/dL (7-18); BUN/Creat Ratio 5.5 RATIO (10-20); Chloride 100 mmol/L (98-107); Creatinine, Serum 4.37 mg/dL (0.70-1.30); EST Glomerular Filtration Rate 15 mL/min (>60); Est Glom Filt Rate - Afr Amer 18 mL/min (>60); Estimated Creatinine Clearance 16.39 ml/min; Glucose 149 mg/dL (74-106); Potassium 3.9 mmol/L (3.5-5.1); Sodium Level 143 mmol/L (136-145)
[2018-12-19 21:23] LABS: Color, Urine Yellow (Yellow); Glucose, Dipstick 50 mg/dl (Normal); Ketone-Dipstick Negative (Negative); Leukocyte Esterase-Dipstick 500 /ul (Negative); Nitrite-Dipstick Negative (Negative); Occult Blood-Urine 50 /ul (Negative); Protein-Dipstick 500 mg/dl (Negative); Urine Bilirubin Dipstick Negative (Negative); Urine Clarity Sl. Cloudy (Clear); Urine Urobilinogen Normal (Normal)
[2018-12-19 21:29] LABS: Anisocytosis 1+; Macrocytosis 1+; Platelet Estimate MOD DEC (ADEQ)
[2018-12-19] MEDS: LORazepam 2 MG/ML Syringe 1 MG IV (21:40)
--- NOTE | 2018-12-19 21:44 | ED.RN ---
PT HAVING ANOTHER SEIZURE, GIVEN ORDER FOR 1MG ATIVAN IV.
[2018-12-19 21:51] LABS: Coarse Granular Cast 0-5 SEEN /lpf (0-5 /lpf)
[2018-12-19 21:52] LABS: Red Blood Cells-Urine 0-5 SEEN /hpf (0-5); Squamous Epithelial Cells - UA 0-5 SEEN /hpf (0-5); White Blood Cells >100 SEEN /hpf (0-5); Yeast-Urine 1+ /hpf (None Seen)
[2018-12-19] MEDS: levETIRAcetam IV 1,000 MG/100 ML BAG 400 MG IV (21:56)
[2018-12-19 22:24] VITALS: BP 146/95; PULSE 108; RESP 28; O2SAT 94
[2018-12-20 00:12] VITALS: BP 177/95; PULSE 95; RESP 27; TEMP 37; O2SAT 100
[2018-12-20] MEDS: Ceftriaxone 1 GM/50 ML BAG IV (01:00)
[2018-12-20 01:30] VITALS: BP 167/91; PULSE 99; RESP 29; O2SAT 98
[2018-12-20 02:56] VITALS: BP 175/81; PULSE 85; RESP 25; O2SAT 99
== END 2018-12-20 03:15 | disposition skilled nursing facility (03) ==
PROVIDERS: Emergency Provider Emergency Medicine; Family Provider Family Medicine; PCP Family Medicine
DX: R56.9 Unspecified convulsions (principal); N39.0 Urinary tract infection, site not specified; I67.83 Posterior reversible encephalopathy syndrome; Z66 Do not resuscitate; Z87.891 Personal history of nicotine dependence; Z88.6 Allergy status to analgesic agent; L40.9 Psoriasis, unspecified; M45.7 Ankylosing spondylitis of lumbosacral region; N18.9 Chronic kidney disease, unspecified; D64.9 Anemia, unspecified; L97.522 Non-pressure chronic ulcer of other part of left foot with fat layer exposed
CPT/HCPCS: 70450; 80048; 81001; 82962; 84484; 85025; 87086; 87088; 93005; 96365; 96366; 96367; 96375; 99284; J7040; J7050; A4216